=== PATIENT | female | born 1960 | race African-American/Black ===

== ENCOUNTER 2024-10-22 00:54 | Day surgery (SDC) | payer OTHER, SELFPAY ==
--- NOTE | 2024-08-14 17:45 | PC.NURSE ---
Report to the Outpatient Waiting Room, entrance under the green pavilion located off [facility], at time ___1200____ on date __[id number] . Planned Procedure Time: ____1400____.? Time changes happen often and if your time is changed the preop area will call you the afternoon before. - You and your visitor will be asked to self-screen and do not enter if you have any COVID symptoms. Please call surgeon if you need to reschedule. - A mask is optional within the hospital at this time. Patients may have clear liquids (water, carbonated beverages, clear teas, apple juice) until 3 hours prior to surgery with a maximum of 20 ounces. Stop at 1100am. - No food from midnight until time of surgery and no smoking - Take only the following medications with a SIP of water on the morning of surgery: __Flexiril (prn), Albuterol (prn)-plus bring your inhaler the morning of surgery, Nortriptyline (prn) Effexor. DO NOT STOP ANY OF YOUR OTHER PRESCRIPTION MEDICATIONS PRIOR TO SURGERY EXCEPT THE FOLLOWING Medications to discontinue per physician Hold your vitamin D and your urocap. Take your last dose on 08-23. Ask your surgeon about naproxen (patient states she will not take until day of surgery), Do not take your clonodine (prn) the morning of surgery. Do not take your hydralazine the morning of surgery. Please no make-up, nail nigerien, hairspray, perfume, deodorant, or body powder the day of surgery.? No jewelry (including any body piercings) or valuables the day of surgery, leave them at home.? Please take a shower or bath the night before, or the morning of, surgery with an antibacterial soap.? Wear comfortable, loose fitting clothing. - Jewelry must be removed prior to entering the operating room.? Rings and piercings that are not removed may be cut off. - The hospital will not accept responsibility for valuables.? - Please leave all valuables, including medications, at home the day of surgery. If you are going home after surgery, a licensed escort car driver must drive you home.? - NO public transportation without another adult if you receive anesthesia. - We recommend that an adult stay with you for 24 hours following discharge. - We also recommend that you do not drive, make important decision, drink alcoholic beverages, or take any drugs that were not prescribed by your health care provider for at least 24 hours after your discharge time. Follow any additional instructions given to you from your surgeon. Telephone instructions given to patient/Joselyn and asked if any additional questions and then verbalized understanding. Patient advised to call surgeon office or pre surgery nurse liaison [phone] if any additional questions.
[2024-08-14 17:54] VITALS: BMI 22.9
--- NOTE | 2024-08-24 10:58 | PM.IMHP ---
H&P: HPI History of Present Illness Date/Time: 08/24/24 10:58 Chief Complaint: Urge incontinence Narrative: History of urge incontinence. Underwent a trial of sacral neuromodulation with 85% symptom improvement. She would like permanent device implantation Review of Systems Review of Systems: All systems reviewed & are unremarkable except as noted in HPI and below PMFSH Past Medical History Medical History Anxiety Endometrial cells on cervical Pap smear inconsistent w/LMP Hypertension Surgical History Surgical History H/O tubal ligation H/O: myomectomy History of cholecystectomy Family History Family History Other Alcoholism Asthma Cerebrovascular accident Diabetes mellitus Heart disease Hypertension Social History Social History Years smoked: 25 Smoking status: Former smoker Tobacco type: cigarettes Second hand tobacco smoke exposure: No Alcohol intake: current Drinks per week: 0 Substance use: never Substance use type: does not use Last use: 2020 Lack of Transportation: No Lack of Food: Sometimes True Current Housing: I Have Housing Concerned About Future Housing: No Difficulty Paying Gas/Electric Bills: YES Difficulty Paying for Meds: YES Currently Unemployed: No Education: Master's Degree or Higher Difficulty w/ Childcare or Family Care: No Living arrangements: with family Spiritual care concerns: No Meds Home Medications and Allergies Home Medications Medication Instructions Recorded Confirmed Type albuterol 90 mcg/actuation aerosol See Rx Instructions .Route 06/28/22 08/14/24 History inhaler .COMPLEX PRN asthma cholecalciferol (vitamin D3) 1,250 1,250 mcg PO WEEKLY 06/28/22 08/14/24 History mcg (50,000 unit) capsule clonidine HCl 0.3 mg tablet 0.3 mg PO DAILY PRN hot flashes 06/28/22 08/14/24 History cyclobenzaprine 10 mg tablet 10 mg PO TID PRN Muscle Spasm 06/28/22 08/14/24 History hydralazine 50 mg tablet 50 mg PO BID PRN Hypertension 06/28/22 08/14/24 History naproxen 250 mg tablet 250 mg PO BID PRN Pain 06/28/22 08/14/24 History tramadol 50 mg tablet 50 mg PO Q6H PRN Pain 06/28/22 08/14/24 History urocap 1 cap BYMOUTH DAILY 06/28/22 08/14/24 History venlafaxine 75 mg tablet 75 mg PO DAILY 06/28/22 08/14/24 History nortriptyline 10 mg capsule 10 mg PO DAILY 01/10/23 08/14/24 History famotidine 20 mg tablet (Pepcid) 30 mg PO HS 08/14/24 08/14/24 History Allergies Allergy/AdvReac Type Severity Reaction Status Date / Time No Known Allergies Allergy Verified 08/14/24 17:55 Exam Narrative: No acute distress Normal breathing Alert orient x3 Assessment and Plan Assessment and plan (1) Urge incontinence: Code(s): N39.41 - Urge incontinence Status: Acute Assessment and Plan: Implantation of InterStim device for urge incontinence. Understands risks of bleeding, infection, incomplete efficacy, need for revision battery changes, she agrees to proceed
--- NOTE | 2024-10-12 12:37 | PC.NURSE ---
Report to the Outpatient Waiting Room, entrance under the green pavilion located off [facility], at time _0800am on date _10/22/24 . Planned Procedure Time: _1000am .? Time changes happen often and if your time is changed the preop area will call you the afternoon before. - You and your visitor will be asked to self-screen and do not enter if you have any COVID symptoms. Please call surgeon if you need to reschedule. - A mask is optional within the hospital at this time. Patients may have clear liquids (water, carbonated beverages, clear teas, apple juice) until 3 hours prior to surgery with a maximum of 20 ounces. - No food from midnight until time of surgery and no smoking. This includes no chewing gum, candy or mints. Take only the following medications with a SIP of water on the morning of surgery: _FLEXERIL( PRN); ALBUTEROL (PRN); NORTRIPTYLINE (prn) AND EFFEXOR DO NOT STOP ANY OF YOUR OTHER PRESCRIPTION MEDICATIONS PRIOR TO SURGERY EXCEPT THE FOLLOWING Medications to discontinue per physician VIT D and UROCAP Date to take last dose___10/19/24 Please no make-up, nail liberian, hairspray, perfume, deodorant, or body powder the day of surgery.? No jewelry (including any body piercings) or valuables the day of surgery, leave them at home.? Please take a shower or bath the night before, or the morning of, surgery with an antibacterial soap.? Wear comfortable, loose fitting clothing. - Jewelry must be removed prior to entering the operating room.? Rings and piercings that are not removed may be cut off. - The hospital will not accept responsibility for valuables.? - Please leave all valuables, including medications, at home the day of surgery. If you are going home after surgery, a licensed route relief driver must drive you home.? - NO public transportation without another adult if you receive anesthesia. - We recommend that an adult stay with you for 24 hours following discharge. - We also recommend that you do not drive, make important decision, drink alcoholic beverages, or take any drugs that were not prescribed by your health care provider for at least 24 hours after your discharge time. Follow any additional instructions given to you from your surgeon. Telephone instructions given to FRANCISCA and asked if any additional questions and then verbalized understanding. Patient advised to call surgeon office or pre surgery nurse liaison [phone] if any additional questions.
--- NOTE | 2024-10-12 12:42 | PC.NURSE ---
PT STATES NO CHANGE IN HEALTH AND MEDS SINCE INTERVIEW ON 08/14/24. UPDATED INSTRUCTIONS GIVEN FOR 10/22/24 SURGERY
--- NOTE | 2024-10-19 11:22 | PM.IMHP ---
H&P: HPI History of Present Illness Date/Time: 10/19/24 11:22 Chief Complaint: Urge incontinence Narrative: Underwent a trial of sacral neuromodulation with greater than 50% improvement in symptoms. Presents for InterStim implant Review of Systems Review of Systems: All systems reviewed & are unremarkable except as noted in HPI and below PMFSH Past Medical History Medical History Endometrial cells on cervical Pap smear inconsistent w/LMP Hypertension Anxiety Surgical History Surgical History H/O: myomectomy H/O tubal ligation History of cholecystectomy Family History Family History Other Alcoholism Asthma Cerebrovascular accident Diabetes mellitus Heart disease Hypertension Social History Social History Years smoked: 25 Smoking status: Former smoker Tobacco type: cigarettes Second hand tobacco smoke exposure: No Alcohol intake: current Drinks per week: 0 Substance use: never Substance use type: does not use Last use: 2020 Lack of Transportation: No Lack of Food: Sometimes True Current Housing: I Have Housing Concerned About Future Housing: No Difficulty Paying Gas/Electric Bills: YES Difficulty Paying for Meds: YES Currently Unemployed: No Education: Master's Degree or Higher Difficulty w/ Childcare or Family Care: No Living arrangements: with family Spiritual care concerns: No Meds Home Medications and Allergies Home Medications ?Medication ?Instructions ?Recorded ?Confirmed ?Type albuterol 90 mcg/actuation aerosol See Rx Instructions .Route 06/28/22 10/12/24 History inhaler .COMPLEX PRN asthma cholecalciferol (vitamin D3) 1,250 1,250 mcg PO WEEKLY 06/28/22 10/12/24 History mcg (50,000 unit) capsule clonidine HCl 0.3 mg tablet 0.3 mg PO DAILY PRN hot flashes 06/28/22 10/12/24 History cyclobenzaprine 10 mg tablet 10 mg PO TID PRN Muscle Spasm 06/28/22 10/12/24 History hydralazine 50 mg tablet 50 mg PO BID PRN Hypertension 06/28/22 10/12/24 History naproxen 250 mg tablet 250 mg PO BID PRN Pain 06/28/22 10/12/24 History tramadol 50 mg tablet 50 mg PO Q6H PRN Pain 06/28/22 10/12/24 History urocap 1 cap BYMOUTH DAILY 06/28/22 10/12/24 History venlafaxine 75 mg tablet 75 mg PO DAILY 06/28/22 10/12/24 History nortriptyline 10 mg capsule 10 mg PO DAILY 01/10/23 10/12/24 History famotidine 20 mg tablet (Pepcid) 30 mg PO HS 08/14/24 10/12/24 History Allergies Allergy/AdvReac Type Severity Reaction Status Date / Time No Known Allergies Allergy Verified 10/12/24 12:45 Exam Narrative: No acute distress Normal breathing Alert orient x3 Assessment and Plan Assessment and plan (1) Urge incontinence: Code(s): N39.41 - Urge incontinence Status: Acute Assessment and Plan: Placement of sacral neurostimulator implant,/InterStim implant
--- NOTE | ~2024-10-22 | XR_ITS ---
EXAMINATION: XR fluoroscopy no charge DATE: 10/22/2024 11:36 INDICATION: Neuro implant stimulator stage II TECHNIQUE: 2 fluoroscopic images of the sacrum were obtained during procedure performed by Dr. Heide martinez. Radiologist was not present for the imaging or procedure. The amount of fluoroscopy time used duri ng this procedure was 0.5 minutes. COMPARISON: None. FINDINGS: Sacral nerve root stimulator extends through one of the S3 neural foramina. Markers indicat ing the side are not included on the provided images it is unclear whether this is on the left or rig ht. IMPRESSION: 1. Sacral nerve root stimulator extending through one of the S3 neural foramina. Correlate with proce dure note for further detail including whether this is on the left or right. Reviewed, dictated and finalized at location [facility] IMPRESSION: 1. Sacral nerve root stimulator extending through one of the S3 neural foramina . Correlate with procedure note for further detail including whether this is on the left or right.
--- NOTE | 2024-10-22 07:16 | WPDHPUPDATE1 ---
History and Physical Update Update Date/Time: 10/22/24 07:16 History and Physical has been reviewed, including an updated exam of the patient. There are NO changes in the patient's condition. Risks, benefits, and alternatives have been discussed and questions answered. Patient agrees to proceed with procedure.
[2024-10-22 09:00] VITALS: BP 101/69; PULSE 89; RESP 14; TEMP 36.4; O2SAT 100
[2024-10-22] MEDS: LACTATED RINGERS 1,000 ML 30 ML IV CONT (09:00)
--- NOTE | 2024-10-22 10:34 | P.PNAN_ITS ---
Anes - Initial Pre Proc Eval Procedure: Operation Date: 10/22/24 10:00 Proposed Procedures p Neurostimulator Implant Stage Two - Rick Gregg MD Date/Time: 10/22/24 10:34 Surgeon: Rick Gregg MD Pre Op Diagnosis: urgamanda incont Patient Data Age: 64 Gender: F Height: 1.65 m Weight: 64.2 kg Last Vital Signs Temp 36.4 C L 10/22/24 09:00 Pulse 89 10/22/24 09:00 Resp 14 10/22/24 09:00 BP 101/69 10/22/24 09:00 Pulse Ox 100 10/22/24 09:00 O2 Del Method Room Air 10/22/24 09:00 Allergies Allergy/AdvReac Type Severity Reaction Status Date / Time No Known Allergies Allergy Verified 10/22/24 09:20 Home Medications ?Medication ?Instructions ?Recorded ?Confirmed ?Type albuterol 90 mcg/actuation aerosol See Rx Instructions .Route 06/28/22 10/12/24 History inhaler .COMPLEX PRN asthma cholecalciferol (vitamin D3) 1,250 1,250 mcg PO WEEKLY 06/28/22 10/12/24 History mcg (50,000 unit) capsule clonidine HCl 0.3 mg tablet 0.3 mg PO DAILY PRN hot flashes 06/28/22 10/12/24 History cyclobenzaprine 10 mg tablet 10 mg PO TID PRN Muscle Spasm 06/28/22 10/12/24 History hydralazine 50 mg tablet 50 mg PO BID PRN Hypertension 06/28/22 10/12/24 History naproxen 250 mg tablet 250 mg PO BID PRN Pain 06/28/22 10/12/24 History tramadol 50 mg tablet 50 mg PO Q6H PRN Pain 06/28/22 10/12/24 History urocap 1 cap BYMOUTH DAILY 06/28/22 10/12/24 History venlafaxine 75 mg tablet 75 mg PO DAILY 06/28/22 10/12/24 History nortriptyline 10 mg capsule 10 mg PO DAILY 01/10/23 10/12/24 History famotidine 20 mg tablet (Pepcid) 30 mg PO HS 08/14/24 10/12/24 History hydrocodone 5 mg-acetaminophen 325 1 tablet PO Q6H PRN pain #15 tabs 10/22/24 Rx mg tablet Patient hx anesthesia problems: none Family hx anesthesia problems: none Results Review: All pre-operative results and documents have been reviewed as part of the pre- operative evaluation. [facility] Past Medical History Medical History Endometrial cells on cervical Pap smear inconsistent w/LMP Hypertension Anxiety Surgical History Surgical History H/O: myomectomy H/O tubal ligation History of cholecystectomy Family History Family History Other Alcoholism Asthma Cerebrovascular accident Diabetes mellitus Heart disease Hypertension Social History Social History Years smoked: 25 Smoking status: Former smoker Tobacco type: cigarettes Second hand tobacco smoke exposure: No Alcohol intake: current Drinks per week: 0 Substance use: never Substance use type: does not use Last use: 2020 Lack of Transportation: No Lack of Food: Sometimes True Current Housing: I Have Housing Concerned About Future Housing: No Difficulty Paying Gas/Electric Bills: YES Difficulty Paying for Meds: YES Currently Unemployed: No Education: Master's Degree or Higher Difficulty w/ Childcare or Family Care: No Living arrangements: with family Spiritual care concerns: No Anes - Eval Final PreProcedure Day of Procedure 10/22/24 10:34 Patient weight: normal Heart: regular rate and rhythm Lungs: clear to auscultation and normal air movement Airway: Mallampati scale class II Neurological: alert and oriented Last oral intake: >/= 8 hours ASA classification: II Emergent: no Anesthetic plan: proceed Anesthesia type and monitoring: general GIVS and standard monitoring Results Review: All pre-operative results and documents have been reviewed as part of the pre- operative evaluation. Informed Consent: The patient's anesthetic plan and its attendant risks and benefits were discussed with the patient/family/POA. Questions were solicited and answers provided to the satisfaction of the patient/family/POA.
[2024-10-22] MEDS: ceFAZolin 2 GM/D5W 50 ML 2 GM/50 ML BAG IVPB (11:05)
[2024-10-22] MEDS: BUPIVACAINE/EPINEPHRINE 0.5% 30 ML VIAL 20 ML INFILTRATE (11:35)
[2024-10-22] MEDS: ceFAZolin SODIUM 1 GM VIAL (11:35)
[2024-10-22 11:43] VITALS: BP 117/66; PULSE 68; RESP 14; O2SAT 100
[2024-10-22 11:55] VITALS: O2SAT 100
[2024-10-22 12:10] VITALS: BP 136/70; PULSE 61; RESP 14; O2SAT 100
[2024-10-22 13:10] VITALS: BP 134/77; PULSE 63; RESP 14
--- OUTSIDE RECORDS SUMMARY | 2024-10-27 10:53 | XMS_ITS | Referral Summary ---
Author Organization [facility] Address [address] [place] [address] Care Team Providers Care Tallow Refiner Name Role Phone Brnadon Dumont MD Primary Care Provider [phone] Abisai Moss MD Unavailable Nunu Steen MD Unavailable [phone] Allergies Active Allergy Reactions Criticality Noted Date Comments Adhesive Rash Medium 05/26/2021 Medications cyclobenzaprine (FLEXERIL) 10 mg tablet Take 1 tablet (10 mg total) by mouth 3 (three) times a day as needed for muscle spasms 12 tablet 0 Active cloNIDine (CATAPRES) 0.3 mg tablet Take 1 tablet (0.3 mg total) by mouth daily Active diazePAM (VALIUM) 5 mg tablet Take 1 tablet (5 mg total) by mouth 3 (three) times a day as needed 7 Active ergocalciferol (VITAMIN D) 50,000 unit capsule Active venlafaxine (EFFEXOR) 75 mg tablet Take 1 tablet (75 mg total) by mouth nightly Active tapentadol ER (NUCYNTA ER) 100 mg 12 hr tablet Take 1 tablet (100 mg total) by mouth 2 times daily 7 Active loratadine 10 mg capsule Take by mouth Active gabapentin (NEURONTIN) 300 mg capsule Take 1 capsule (300 mg total) by mouth nightly 90 capsule 1 0 Active Additional Information Patient not taking.Reported on 07/16/2024 fluticasone propionate (FLONASE) 50 mcg/actuation nasal sprayIndications :Allergic rhinitis, unspecified seasonality, unspecified trigger Administer 2 sprays into each nostril daily 16 g 11 0 Active oxybutynin (DITROPAN) 5 mg tablet 1 Active hydrALAZINE (APRESOLINE) 25 mg tabletIndication s:hypertension Take 1 tablet (25 mg total) by mouth 3 (three) times a day 90 tablet 11 1 Active albuterol HFA (ProAir HFA) 90 mcg/actuation inhalerIndicatio ns:Cough Inhale 2 puffs every 4 (four) hours as needed for wheezing or shortness of breath 8.5 g 2 Active nicotine (NICODERM CQ) 14 mg 2 Active atorvastatin (LIPITOR) 10 mg tablet Take 1 tablet (10 mg total) by mouth daily 2 Active losartan (COZAAR) 25 mg tablet Take 1 tablet (25 mg total) by mouth daily 2 Active famotidine (PEPCID) 40 mg tabletIndication s:Laryngeal spasm Take 1 tablet (40 mg total) by mouth nightly 90 tablet 3 3 Active methylPREDNISolo ne (Medrol, [place],) 4 mg Dosepack follow package directions 1 packet 3 Active Additional Information Patient not taking.Reported on 01/05/2024 nortriptyline (PAMELOR) 25 mg capsule Take 1 capsule (25 mg total) by mouth nightly 90 capsule 3 Active colestipoL (COLESTID) 1 gram tablet Take 1 tablet (1 g total) by mouth 2 (two) times a day as needed (diarrhea) 180 tablet 4 Active umeclidinium-anita anteroL (Anoro Ellipta) 62.5-25 mcg/actuation blister with device Inhale 1 puff daily 90 each 3 4 01/19/20 Active Additional Information Patient not taking.Reported on 07/16/2024 Active Problems Problem Noted Date Diagnosed Date 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 Followed Flonase 2 sprays into each nostril while looking down over the sink, do not sniff in or blow nose after use for at least 30 minutes RUQ abdominal pain 11/19/2022 Overview (11/19/2022): Added automatically from request for surgery [id number] Essential hypertension 08/17/2021 Epigastric pain 05/26/2021 S/P ERCP 05/26/2021 Colon cancer screening 05/26/2021 Diarrhea 05/26/2021 Nausea 05/26/2021 Abnormality of rectum 05/12/2021 Cholecystitis 05/10/2021 Assessment & Plan (05/10/2021 4:16 PM CDT): Symptoms classic for cholecystitis especially with known colelithiasis and choledocholithiasis seen on CT. General surgery consulted, lap choly planned tomorrow. NPO at PR. IV pain control. Anxiety 05/10/2021 Elevated liver enzymes 05/10/2021 Overview (05/12/2021): Added automatically from request for surgery [id number] Choledocholithiasis with acute cholecystitis 02/2021 Overview (05/12/2021): Added automatically from request for surgery [id number] Assessment & Plan (05/21/2021 10:16 AM CDT): Continue to advance diet as tolerates. No submerging incisions for 2 weeks. No heavy lifting for another 2 weeks. Take stool softener as needed to avoid straining. Patient will call back with any further questions or concerns. Referred otalgia of left ear 09/30/2020 Assessment & Plan (09/30/2020 1:53 PM FIRER MARINE): Flonase 2 sprays into each nostril while looking down over the sink, do not sniff in or blow nose after use for at least 30 minutes Warm compresses and massage 15 minutes at a time and continue to work with physical therapy regarding muscle strain 64 ounces of caffeine free and soda free fluid daily Allergic rhinitis 09/30/2020 Assessment & Plan (02/23/2023 2:02 PM CDT): Pepcid 40 mg at bedtime Nasal saline spray (Simply saline, [place], [place], [place]) 2 second sprays or 2 squeezes into each nostril while looking down over the sink, do not need to sniff in. Followed Flonase 2 sprays into each nostril while looking down over the sink, do not sniff in or blow nose after use for at least 30 minutes Assessment & Plan (09/30/2020 1:53 PM FIRER MARINE): Flonase 2 sprays into each nostril while looking down over the sink, do not sniff in or blow nose after use for at least 30 minutes Warm compresses and massage 15 minutes at a time and continue to work with physical therapy regarding muscle strain 64 ounces of caffeine free and soda free fluid daily Cigarette nicotine dependence, uncomplicated Tobacco use 02/28/2017 Decrease in appetite 01/17/2017 Degeneration of intervertebral disc of lumbar re gion 01/17/2017 Irritable mood 01/17/2017 Lumbar radiculopathy 01/17/2017 Menopause present 01/17/2017 Uterine leiomyoma Social History Tobacco Use Types Packs/Day Years Used Date Smoking Tobacco: Former Cigarettes 0.7 40 1 997 - 05/07/2023 Smokeless Tobacco: Never Tobacco Cessation:Counseling Given: Not Answered Comments:quit 2019 ARestarted 2 mo ago after daughter . Currently on 14mg patches Alcohol Use Standard Drinks/Week Comments Not Currently 0 (1 standard drink = 0.6 oz pur e alcohol) Social Connection and Isolat ion Panel [NHANES] Answer Date Recorded In a typical week, how many times do you talk on the phone with family, friends, or neighbors? More than three times a week 07/16/2024 How often do you get togethe r with friends or relatives? Once a week 07/16/2024 How often do you attend chur ch or holiness services? More than 4 times per year 07/16/2024 Do you belong to any clubs o r organizations such as jewish groups, unions, fraternal or athletic groups, or school groups? Yes 07/16/2024 How often do you attend meet ings of the clubs or organizations you belong to? More than 4 times per year 07/16/2024 Are you , , di vorced, , never , or living with a partner? 07/16/2024 AUDIT-C Answer Date Recorded Q1: How often do you have a drink containing alc ohol? Never 10/14/2023 Average Number of Drinks Not on file 023 Frequency of Binge Drinking Not on file 06/2023 Overall Financial Resource Strain (CARDIA) Answe r Date Recorded How hard is it for you to pa y for the very basics like food, housing, medical care, and heating? Not very hard 07/16/2024 PHQ-2 Answer Date Recorded Patient Health Questionnaire-2 Score 2 07/16/2024 [facility] Occupat ional Health - Occupational Stress Questionnaire Answer Date Recorded Do you feel stress - tense, restless, nervous, or anxious, or unable to sleep at night because your mind is troubled all the time - these days? To some extent 07/16/2024 Exercise Vital Sign Answer Date Recorde d On average, how many days pe r week do you engage in moderate to strenuous exercise (like a brisk walk)? 2 days 07/16/2024 On average, how many minutes do you engage in exercise at this level? 10 min 07/16/2024 Hunger Vital Sign Answer Date Recorded Within the past 12 months, y ou worried that your food would run out before you got the money to buy more. Never true Within the past 12 months, t he food you bought just didn't last and you didn't have money to get more. Sometimes true 07/2024 PRAPARE - Transportation Answer Date Re corded In the past 12 months, has l ack of transportation kept you from medical appointments or from getting medications? No 07/2024 In the past 12 months, has l ack of transportation kept you from meetings, work, or from getting things needed for daily living? No 07/16/2024 Housing Stability Vital Sign Answer Moose e Recorded In the last 12 months, was t here a time when you were not able to pay the mortgage or rent on time? Patient refused 07/16/20 24 Number of Times Moved in the Last Year Not on fi le 07/16/2024 Homeless in the Last Year Not on file 2023 Personal Safety Answer Date Recorded Getting School Help Needed Denies 10/17 Comments No Sex and Gender Information Value Date Recorded Sex Assigned at Not on file Legal Sex Female 12:50 AM FIRER MARINE Gender Identity Not on file Sexual Orientation Not on file Last Filed Vital Signs Vital Sign Reading Time Taken Comments Blood Pressure 131/85 07/16/2024 8:12 AM CDT Pulse 77 07/16/2024 8:12 AM CDT Temperature 36.2 ??C (97.1 ??F) 07/16/2024 8:12 AM CD T Respiratory Rate 16 11/24/2022 2:50 PM FIRER MARINE Oxygen Saturation 100% 07/16/2024 8:12 AM CDT Inhaled Oxygen Concentration - - Weight 65.2 kg (143 lb 12.8 oz) 07/16/2024 8:12 AM CDT Height 165.1 cm (5' 5 ) 07/16/2024 8:12 AM CDT Body Mass Index 23.93 07/16/2024 8:12 AM CDT Plan of Treatment Not on file Procedures Procedure Name Priority Date/Time Associated Diagnosis Comments HEPATITIS C ANTIBODY Routine 07/16/2024 9:08 AM CDT Ribonucleoprotein antibody positive SCREENING MAMMOGRAM BILATERAL W MICAH Schedule Routine, Read Routine (OP Routine) 09/13/2023 2:47 PM FIRER MARINE Encounter for screening mammogram for malignant neoplasm of breast CT LUNG CANCER SCREENING Schedule Routine, Read Routine (OP Routine) 07/12/2023 3:47 PM CDT Nicotine dependence, cigarettes, uncomplicated COLONOSCOPY 12/15/2021 12:38 PM FIRER MARINE from Last 3 Months or Most Recently Relevant to Health Maintenance Results * Hepatitis C antibody Blood (07/16/2024 9:08 AM CDT) Hep C Ab Nonreactive Nonreactive Comment: Interpretive Data Nonreactive: Antibodies to HCV not detected. Does NOT exclude the possibility of recent exposure to HCV. Equivocal: Equivocal for HCV antibodies. Supplemental molecular testing will be automatically performed to determine infection status in accordance with current CDC screening recommendations. ?? Reactive: Positive for HCV antibodies. ??This may represent current or past HCV infection. Supplemental molecular testing will be automatically performed to determine ??current infection status in accordance with current CDC screening recommendations. Interpretive data was last revised on 2020. Blood 07/16/2024 9:08 AM CDT 07/16/2024 3:50 PM CDT us Wallace Awad RN LAB MICROBIOLOGY - GENERAL ORD ERABLES Final Result Performing Organization Address City/State/[facility] [place] Phone Number [place] [phone] [address] Department [place] [address] * Screening Mammogram Bilateral W [place] (09/13/2023 2:47 PM FIRER MARINE) Anatomical Region Laterality Modality Breast Bilateral Mammography 09/13/2023 4:48 PM FIRER MARINE Impressions 09/13/2023 4:48 PM FIRER MARINE There is no mammographic evidence of malignancy. A 1 year screening mammogram is recommended. BI-RADS: 1 - Negative. The patient has been or will be contacted. The patient will be entered into a reminder system with a target due date of 1 year for her next mammogram. Electronically signed by: Melina Pineda M.D. Narrative 09/13/2023 4:48 PM FIRER MARINE EXAMINATION: SCREENING MAMMOGRAM BILATERAL W MICAH ORDERING HEALTHCARE PROVIDER: GRETEL ALVAREZ HISTORY: Routine screening mammography. COMPARISON: ??03/19/2010 TECHNIQUE: CC and MLO views of the bilateral breasts were obtained with digital technique using breast tomosynthesis with C view. Computer aided detection was utilized. FINDINGS: DENSITY: There are scattered fibroglandular elements in the bilateral breasts. BREASTS: There are no suspicious masses, suspicious calcifications, or other suspicious findings in either breast. There has been no suspicious interval change. us Gretel Alvarez MD IMG MAMMO PROCEDURES Final Re sult * CT Lung Cancer Screening (07/12/2023 3:47 PM CDT) Anatomical Region Laterality Modality Chest N/A Computed Tomogra phy 07/14/2023 8:28 AM CDT Narrative 07/14/2023 8:33 AM CDT EXAM DESCRIPTION: ?? CT LUNG CANCER SCREENING REASON FOR STUDY: Screening CT of the chest in a ?? former ??smoker with a ??30 ?? pack year smoking history. Additional history: Smoking cessation this year.. TECHNIQUE: Low dose CT scan of the chest was performed without intravenous contrast using helical scanning technique. The exam extends from the lung apices through the lung bases. Automatic exposure control was used as a dose optimization technique. NOTE: This study was performed for the specific purposes of lung cancer screening and is not an alternative to diagnostic chest CT. RADIATION DOSE: CT dose index volume (CTDIvol) = ?? 0.91 ??mGy COMPARISON: ?? Chest CT dated 07/08/2022 FINDINGS: SMOKING RELATED LUNG DISEASE: ?? There is mild centrilobular emphysema with upper lung predominance. ?? Subtle tiny centrilobular ground-glass nodules in the upper lungs. ??These are indeterminate, but suggestive of mild respiratory bronchiolitis in a smoker. LUNG NODULES: ?? There are a few tiny lung nodules bilaterally. ??The largest is a solid nodule in the left upper lobe apicoposterior segment, image 144, measuring 3-4 mm. ??This is unchanged. ??No new suspicious lung nodules are seen. CORONARY ARTERY CALCIFICATION: ??Mild. OTHER: ?? Minimal areas of biapical pleuroparenchymal scarring. ??There is also mild scarring in the lung bases. ??There is no focal consolidation. ??The central airways are patent. ??Mild bronchiectasis and bronchiolectasis. ??Mild bronchial wall thickening and mild patchy mucous plugging. ??These findings are similar to the previous study. ??There is no pleural effusion or pneumothorax. ?? No suspicious lymphadenopathy seen in the chest. ??No mediastinal masses. ??The heart size is normal. ??There is no pericardial thickening or effusion. ??The thoracic aorta is mildly atherosclerotic, but normal in caliber. ??The central pulmonary arteries appear mildly dilated. ??Limited low-dose images through the upper abdomen are unremarkable. ??Examination of bone windows demonstrates no suspicious lytic or blastic lesions. IMPRESSION: A few tiny lung nodules are again seen bilaterally. The largest is in the left upper lobe apicoposterior segment, and measures 3-4 mm. No new suspicious lung nodules are seen. Mild centrilobular emphysema with upper lung predominance. Subtle tiny centrilobular ground-glass nodules in the upper lungs. These are indeterminate, but suggestive of mild respiratory bronchiolitis in a smoker. Other findings as described above. Lung-RADS category ??2: Benign appearance or behavior. Recommendation: ??Low dose Screening CT of chest in 12 months. THIS IS AN ELECTRONICALLY VERIFIED FINAL REPORT 07/14/2023 8:33 AM - Electronically signed by ??Martin Plasencia M.D. RL: CLAY D: ??07/14/2023 8:33 AM T: ??07/14/2023 8:33 AM Report ID: [id number] Reading Location: ??[id number] Procedure Note Martin Murray MD - 07/14/2023 EXAM DESCRIPTION: CT LUNG CANCER SCREENING REASON FOR STUDY: Screening CT of the chest in a former smoker with a30 pack year smoking history. Additional history: Smoking cessation thisyear.. TECHNIQUE: Low dose CT scan of the chest was performed without intravenous contrast using helical scanning technique. The exam extends from the lung apices through the lung bases. Automatic exposure control was used as adose optimization technique. NOTE: This study was performed for the specific purposes of lung cancer screening and is not an alternative to diagnostic chest CT. RADIATION DOSE: CT dose index volume (CTDIvol) = 0.91 mGy COMPARISON: Chest CT dated 07/08/2022 FINDINGS: SMOKING RELATED LUNG DISEASE: There is mild centrilobular emphysema with upper lung predominance. Subtle tiny centrilobular ground-glass nodulesin the upper lungs. These are indeterminate, but suggestive of mildrespiratory bronchiolitis in a smoker. LUNG NODULES: There are a few tiny lung nodules bilaterally. Thelargest is a solid nodule in the left upper lobe apicoposterior segment, image 144, measuring 3-4 mm. This is unchanged. No new suspicious lung nodules are seen. CORONARY ARTERY CALCIFICATION: Mild. OTHER: Minimal areas of biapical pleuroparenchymal scarring. There isalso mild scarring in the lung bases. There is no focal consolidation. The central airways are patent. Mild bronchiectasis and bronchiolectasis.Mild bronchial wall thickening and mild patchy mucous plugging. These findingsare similar to the previous study. There is no pleural effusion orpneumothorax. No suspicious lymphadenopathy seen in the chest. No mediastinal masses.The heart size is normal. There is no pericardial thickening or effusion.The thoracic aorta is mildly atherosclerotic, but normal in caliber. Thecentral pulmonary arteries appear mildly dilated. Limited low-dose images throughthe upper abdomen are unremarkable. Examination of bone windows demonstratesno suspicious lytic or blastic lesions. IMPRESSION: A few tiny lung nodules are again seen bilaterally. The largest is in the left upper lobe apicoposterior segment, and measures 3-4 mm. No newsuspicious lung nodules are seen. Mild centrilobular emphysema with upper lung predominance. Subtle tiny centrilobular ground-glass nodules in the upper lungs. Theseare indeterminate, but suggestive of mild respiratory bronchiolitis in asmoker. Other findings as described above. Lung-RADS category 2: Benign appearance or behavior. Recommendation: Low dose Screening CT of chest in 12 months. THIS IS AN ELECTRONICALLY VERIFIED FINAL REPORT 07/14/2023 8:33 AM - Electronically signed by Martin Plasencia M.D. RL: CLAY Report ID: [id number] Reading Location: [id number] Mike Sism MD [facility] [place] Final Result * COLONOSCOPY (12/15/2021 12:38 PM FIRER MARINE) Anatomical Region Laterality Modality Other Narrative Procedure Note Nunu Steen MD - 12/15/2021 12:38 PM CST [facility] Patient Name: Joselyn Amado Procedure Date: 12/15/2021 12:38 PM Date of : 1960 Admit Type: Outpatient Age: 61 Gender: Female Attending MD: Nunu Steen M.D. Room: [facility] ENDOSCOPY ROOM 1 Note Status: Finalized Patient Profile: This is a 61 year old female. No family h/o colon cancer. Screening. Procedure: Colonoscopy Indications: Screening for colorectal malignant neoplasm, Thisis the patient's first colonoscopy Referring MD: Brandon Dumont M.D. Providers: Nunu Steen M.D. Impression: - Two 10 to 14 mm polyps in the transverse colonand in the cecum, removed with a cold snare. Resectedand retrieved. - Two diminutive polyps in the rectum, removed witha jumbo cold forceps. Resected and retrieved. - Internal hemorrhoids. Recommendation: - Await pathology results. - Repeat colonoscopy in 3 years for screeningpurposes. - Continue present medications. Medicines: Monitored Anesthesia Care Complications: No immediate complications. Estimated Blood Loss: Estimated blood loss: none. Procedure: Pre-Anesthesia Assessment: - Prior to the procedure, a History and Physicalwas performed, and patient medications and allergieswere reviewed. The patient's tolerance of previous anesthesia was also reviewed. The risks andbenefits of the procedure and the sedation options and risks were discussed with the patient. All questions were answered, and informed consent was obtained. Prior Anticoagulants: The patient has taken no previous anticoagulant or antiplatelet agents except for aspirin. ASA Grade Assessment: III - A patient with severe systemic disease. After reviewing the risksand benefits, the patient was deemed in satisfactory condition to undergo the procedure. The benefits, risks and alternatives of theprocedure and sedation were discussed and informed consentwas obtained. All questions were answered. Please referto the signed informed consent document in the medical record. The bowel preparation used was Miralax and bisacodyl tablets via split dose instruction. The scope was passed under direct vision. The Pediatric Colonoscope [id number]-H190L [id number] was introducedthrough the anus and advanced to the the cecum, identifiedby appendiceal orifice and ileocecal valve. Thequality of the bowel preparation was good. Bowel prep was administered using a split dose. Findings: The perianal and digital rectal examinations were normal. The appendiceal orifice appeared normal. Two sessile polyps were found in the transverse colon and cecum. The polyps were 10 to 14 mm in size. These polyps were removed with acold snare. CLip applied on the polypectomy site in the cecum. Resectionand retrieval were complete. The ascending colon appeared normal. Two sessile polyps were found in the rectum. The polyps werediminutive in size. These polyps were removed with a jumbo cold forceps.Resection and retrieval were complete. Internal hemorrhoids were found during retroflexion. The hemorrhoids were small. None specific erythema noted in the distal part of the rectum. Electronically signed by Nunu Steen M.D. Nunu Steen M.D. 12/15/2021 1:42:41 PM Number of Addenda: 0 Note Initiated On: 12/15/2021 12:38 PM Procedure Code(s): --- Professional --- 72806, Colonoscopy, flexible; with removal of tumor(s), polyp(s), or other lesion(s) by snare technique 06970, 59, Colonoscopy, flexible; with biopsy, single or multiple Diagnosis Code(s): --- Professional --- Z12.11, Encounter for screening for malignant neoplasm of colon K64.8, Other hemorrhoids K63.5, Polyp of colon K62.1, Rectal polyp CPT copyright 2019 [employer]. All rights reserved. The codes documented in this report are preliminary and upon tank processor reviewmay be revised to meet current compliance requirements. Recognized by the [employer] for promoting quality in endoscopy Nunu Steen MD ENDOSCOPY PROCEDURES Final Result from Last 3 Months or Most Recently Relevant to Health Maintenance Insurance [facility] CHOICE PLUS [employer] OPEN ACCESS [facility] CHOICE PLUS [facility] CHOICE PLUS [employer] OPEN ACCESS Advance Directives For more information, please contact: [phone] * Full Code (Latest Code Status on File) Date Activated Date Inactivated Comments 11/24/2022 12:30 PM 11/24/2022 7:23 PM * Full Code Date Activated Date Inactivated Comments 11/24/2022 12:30 PM 11/24/2022 12:30 PM * Full Code Date Activated Date Inactivated Comments 12/15/2021 12:15 PM 12/15/2021 6:18 PM * Full Code Date Activated Date Inactivated Comments 12/15/2021 12:15 PM 12/15/2021 12:15 PM * Full Code Date Activated Date Inactivated Comments 05/12/2021 2:45 PM 05/14/2021 8:40 PM Care Teams Tallow Refiner Relationship Specialty Start Date End Date Brandon Dumont MD PCP - General 03/26/21 Abisai Msos MD Consulting Physician General Surgery 05/14/21 Nunu Steen MD Consulting Physician Gastroenterology 05/14/21
--- OUTSIDE RECORDS SUMMARY | 2024-10-27 10:53 | XMS_ITS | Clinical Summary ---
Author Organization [facility] Address [address] [place] [address] Care Team Providers Care Rouge Sifter Name Role Phone Brandon Dumont MD Primary Care Provider [phone] Abisai Moss MD Unavailable Nunu Steen MD Unavailable [phone] Allergies Active Allergy Reactions Criticality Noted Date [...] Nasal saline spray (Simply saline, Little Remedies, Robertson, Bartley) 2 second sprays or 2 squeezes into each nostril while looking down over the sink, do not need to sniff in. Followed Flonase 2 sprays into each nostril while looking down over the sink, do not sniff in or blow nose after use for at least 30 minutes RUQ abdominal pain 11/19/2022 Overview (11/19/2022): Added automatically from request for surgery [id number] Essential hypertension 08/17/2021 Epigastric pain 05/26/2021 S/P ERCP 05/26/2021 Colon cancer screening 05/26/2021 Diarrhea 05/26/2021 Nausea 05/26/2021 Abnormality of rectum 05/12/2021 Cholecystitis 05/10/2021 Assessment & Plan (05/10/2021 4:16 PM CDT): Symptoms classic for cholecystitis especially with known colelithiasis and choledocholithiasis seen on CT. General surgery consulted, lap choly planned tomorrow. NPO at MD. IV pain control. Anxiety 05/10/2021 Elevated liver enzymes 05/10/2021 Overview (05/12/2021): Added automatically from request for surgery [id number] Choledocholithiasis with acute cholecystitis 02/2021 Overview (05/12/2021): Added automatically from request for surgery [id number] Assessment & Plan (05/21/2021 10:16 AM CDT): Continue to advance diet as tolerates. No submerging incisions for 2 weeks. No heavy lifting for another 2 weeks. Take stool softener as needed to avoid straining. Patient will call back with any further questions or concerns. Referred otalgia of left ear 09/30/2020 Assessment & Plan (09/30/2020 1:53 PM COOKY PACKER): Flonase 2 sprays into each nostril while [...] Nasal saline spray (Simply saline, Little Remedies, Robertson, Bartley) 2 second sprays or 2 squeezes into each nostril while looking down over the sink, do not need to sniff in. Followed Flonase 2 sprays into each nostril while looking down over the sink, do not sniff in or blow nose after use for at least 30 minutes Assessment & Plan (09/30/2020 1:53 PM COOKY PACKER): Flonase 2 sprays into each nostril while [...] radiculopathy 01/17/2017 Menopause present 01/17/2017 Uterine leiomyoma Surgical History Surgery Date Site/Laterality Comments BACK SURGERY 11/07/2016 - 11/06/2017 COLONOSCOPY 12/15/2021 CHOLECYSTECTOMY Medical History Medical History Date Comments Chronic pain 2019 Bladder spasms Gall stones Hot flashes Hypertension Hyperlipidemia Covid 05/2022 Family History Medical History Relation Name Comments Heart attack Father Family history of myocardial infarction - (Added by TW Conv) Heart attack Mother Family history of myocardial infarction - (Added by TW Conv) Relation Name Status Comments Father Mother Social History Tobacco Use Types Packs/Day Years [...] 07/16/2024 How often do you attend chur or zoroastrianism services? More than 4 times per year 07/16/2024 Do you belong to any clubs o r organizations such as jain groups, unions, fraternal or athletic groups, or [...] Recorded Patient Health Questionnaire-2 Score 2 07/16/2024 [facility] of Occupat ional Health - Occupational Stress [...] on file Legal Sex Female 12:50 AM COOKY PACKER Gender Identity Not on file Sexual Orientation Not on file Obstetrics History Para Term AB IAB SAB Ectopic Multiple Livin g Live Births 4 4 4 Date Outcome GA Total Labor Labor/2nd/3rd Weight Sex Type Anes PTL Roshni A1 A5 Name Clin Term Term Term Term Last Filed Vital Signs Vital Sign Reading Time Taken Comments Blood Pressure 131/85 07/16/2024 8:12 AM CDT Pulse 77 07/16/2024 8:12 AM CDT Temperature 36.2 ??C (97.1 ??F) 07/16/2024 8:12 AM CD T Respiratory Rate 16 11/24/2022 2:50 PM COOKY PACKER Oxygen Saturation 100% 07/16/2024 8:12 AM CDT Inhaled Oxygen Concentration - - Weight 65.2 kg (143 lb 12.8 oz) 07/16/2024 8:12 AM CDT Height 165.1 cm (5' 5 ) 07/16/2024 8:12 AM CDT Body Mass Index 23.93 07/16/2024 8:12 AM CDT Plan of Treatment Health Maintenance Due Date Last Done Comments Cervical Cancer Screening 1960 Pneumococcal vaccine <65 (1 of 2 - PCV) 1968 Hepatitis B Screening 1980 Regular Well Visit/Exam 18-64 1980 Zoster Vaccine (1 of 2) 2012 Covid-19 Vaccine (3 - season) 07/08/202404/2021, 06/13/2021 Influenza Vaccine (#1) 2024 Lung Cancer Screening 07/12/2024 07/12/2023 Breast Cancer Screening-Mammogram 09/13/2024 023, 09/13/2023 Depression Screening 07/16/2025 07/16/2024 Colon Cancer Screening-Colonoscopy 12/15/20312021 DTaP/Tdap/Td Vaccine (2 - Td or Tdap) 10/03/2032 Colon Cancer Screening-CT Colonography Discontinued Colon Cancer Screening-DNA Stool Discontinued 12/15/19 Colon Cancer Screening-FIT Discontinued 12/15/2021 Colon Cancer Screening-Sigmoidoscopy Discontinued 06/2022 Hepatitis C Screening Completed 07/16/2024 Procedures Procedure Name Priority Date/Time Associated Diagnosis Comments HEPATITIS C ANTIBODY Routine 07/16/2024 9:08 AM CDT Ribonucleoprotein antibody positive SCREENING MAMMOGRAM BILATERAL W MICAH Schedule Routine, Read Routine (OP Routine) 09/13/2023 2:47 PM COOKY PACKER Encounter for screening mammogram for malignant neoplasm of breast CT LUNG CANCER SCREENING Schedule Routine, Read Routine (OP Routine) 07/12/2023 3:47 PM CDT Nicotine dependence, cigarettes, uncomplicated COLONOSCOPY 12/15/2021 12:38 PM COOKY PACKER from Last 3 Months or Most Recently [...] 07/16/2024 3:50 PM CDT us Wallace Awad MOLD SWABBER MICROBIOLOGY - GENERAL ORD ERABLES Final Result [place] [address] Jennifer Esquivel Department [place] [address] * Screening Mammogram Bilateral W Micah (09/13/2023 2:47 PM COOKY PACKER) Anatomical Region Laterality Modality Breast Bilateral Mammography 09/13/2023 4:48 PM COOKY PACKER Impressions 09/13/2023 4:48 PM COOKY PACKER There is no mammographic evidence of malignancy. A 1 year screening mammogram is recommended. BI-RADS: 1 - Negative. The patient has been or will be contacted. The patient will be entered into a reminder system with a target due date of 1 year for her next mammogram. Electronically signed by: Melina Pineda M.D. Narrative 09/13/2023 4:48 PM COOKY PACKER EXAMINATION: SCREENING MAMMOGRAM BILATERAL W MICAH ORDERING [...] Electronically signed by ??Martin Plasencia M.D. RL: RL D: ??07/14/2023 8:33 AM T: ??07/14/2023 8:33 AM Report ID: [id number] Reading Location: ??[id number] Procedure Note Martin Murray MD - 07/14/2023 [...] Electronically signed by Martin Plasencia M.D. RL: CLYA Report ID: [id number] Reading Location: [id number] Mike Sims MD [facility] [place] PROCEDURES Final Result * COLONOSCOPY (12/15/2021 12:38 PM COOKY PACKER) Anatomical Region Laterality Modality Other Narrative Procedure Note Nunu Steen MD - 12/15/2021 12:38 PM CST [facility] Patient Name: Joselyn Amado Procedure Date: 12/15/2021 12:38 PM Date of : 1960 Admit Type: Outpatient Age: 61 Gender: Female Attending MD: Nunu Steen M.D. [facility] Note Status: Finalized Patient [...] under direct vision. The Pediatric Colonoscope [id number]-H190L [id number] was introducedthrough the anus and advanced to [...] 12:38 PM Procedure Code(s): --- Professional --- 20347, Colonoscopy, flexible; with removal of tumor(s), polyp(s), or other lesion(s) by snare technique 12630, 59, Colonoscopy, flexible; with biopsy, single or multiple Diagnosis Code(s): --- Professional --- Z12.11, Encounter for screening for malignant neoplasm of colon K64.8, Other hemorrhoids K63.5, Polyp of colon K62.1, Rectal polyp CPT copyright 2019 [employer]. All rights reserved. The codes documented in this report are preliminary and upon demand generation manager reviewmay be revised to meet current compliance requirements. Recognized by the [employer] for promoting quality in endoscopy Nunu Steen MD ENDOSCOPY PROCEDURES Final Result from Last 3 Months or Most Recently Relevant to Health Maintenance Insurance [facility] [facility] Address: [place] [address] [employer] [facility] Address: [place] [address] [facility] [employer] [facility] [facility]PPO Address: [address] [address] [place] [address] [employer] OPEN ACCESS Advance Directives For more information, please contact: [phone] * Full Code (Latest Code Status on [...] 2:45 PM 05/14/2021 8:40 PM Care Teams Rouge Sifter Relationship Specialty Start Date End Date Brandon Dumont MD PCP - General 03/26/21 Abisai Moss MD Consulting Physician General Surgery 05/14/21 Nunu Steen MD Consulting Physician Gastroenterology 05/14/21
--- OUTSIDE RECORDS SUMMARY | 2024-10-27 10:54 | XMS_ITS | Encounter Summary ---
Author Organization [facility] Address [address] [place] [address] Care Team Providers Care Choke Setter Name Role Phone Brandon Dumont MD Primary Care Provider [phone] Abisai Moss MD Unavailable Nunu Steen MD Unavailable [phone] Encounter Details Date Type Department Care Team (Latest Contact Info) Description 07/16/2024 9:08 AM CDT - 07/16/2024 11:59 PM CDT Hospital Encounter [facility] [address] [place], [place] [id number] Ribonucleoprotein antibody positive Discharge Disposition: Discharge to home or self care Social History Tobacco Use Types Packs/Day Years Used Date Smoking Tobacco: Former Cigarettes 0.7 40 1 997 - 05/07/2023 Smokeless Tobacco: Never Comments:quit 2020 ARestarted 2 mo ago after daughter . [...] week 07/16/2024 How often do you attend [facility] or [facility] services? 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 Gender Identity Not on file Sexual Orientation Not on file documented as of this encounter Medications at Time of Discharge atorvastatin (LIPITOR) 10 mg tablet Take 1 tablet (10 mg total) by mouth daily 10/15/2022 cloNIDine (CATAPRES) 0.3 mg tablet Take 1 tablet (0.3 mg total) by mouth daily cyclobenzaprine (FLEXERIL) 10 mg tablet Take 1 tablet (10 mg total) by mouth 3 (three) times a day as needed for muscle spasms 12 tablet 08/07/2020 diazePAM (VALIUM) 5 mg tablet Take 1 tablet (5 mg total) by mouth 3 (three) times a day as needed 02/28/2017 ergocalciferol (VITAMIN D) 50,000 unit capsule gabapentin (NEURONTIN) 300 mg capsule Take 1 capsule (300 mg total) by mouth nightly 90 capsule 1 09/03/2020 loratadine 10 mg capsule Take by mouth losartan (COZAAR) 25 mg tablet Take 1 tablet (25 mg total) by mouth daily 10/08/2022 methylPREDNISolo ne (Medrol, Talon,) 4 mg Dosepack follow package directions 1 packet 10/04/2023 nicotine (NICODERM CQ) 14 mg 10/08/2022 oxybutynin (DITROPAN) 5 mg tablet 04/16/2021 tapentadol ER (NUCYNTA ER) 100 mg 12 hr tablet Take 1 tablet (100 mg total) by mouth 2 times daily 01/26/2017 umeclidinium-anita anteroL (Anoro Ellipta) 62.5-25 mcg/actuation blister with device Inhale 1 puff daily 90 each 3 01/19/2024 venlafaxine (EFFEXOR) 75 mg tablet Take 1 tablet (75 mg total) by mouth nightly documented as of this encounter Discharge Disposition Disposition Code Departure Means Destination Discharge to home or self care documented in this encounter Plan of Treatment Not on file documented as of this encounter Procedures Procedure Name Priority Date/Time Associated Diagnosis Comments ANTI-DOUBLE STRANDED DNA ANTIBODIES Routine 07/16/2024 9:08 AM CDT Ribonucleoprotein antibody positive EGFR Routine 07/16/2024 9:08 AM CDT Ribonucleoprotein antibody positive C4 COMPLEMENT Routine 07/16/2024 9:08 AM CDT Ribonucleoprotein antibody positive HIV 1/2 ANTIBODY PLUS P24 ANTIGEN Routine 07/16/2024 9:08 AM CDT Ribonucleoprotein antibody positive HEPATITIS C ANTIBODY Routine 07/16/2024 9:08 AM CDT Ribonucleoprotein antibody positive CYCLIC CITRUL PEPTIDE ANTIBODY, IGG Routine 07/16/2024 9:08 AM CDT Ribonucleoprotein antibody positive PROTEIN / CREATININE RATIO, URINE, RANDOM Routine 07/16/2024 9:08 AM CDT Ribonucleoprotein antibody positive HEPATITIS B CORE ANTIBODY, TOTAL Routine 07/16/2024 9:08 AM CDT Ribonucleoprotein antibody positive HEPATITIS B SURFACE ANTIGEN Routine 07/16/2024 9:08 AM CDT Ribonucleoprotein antibody positive CBC WITHOUT DIFFERENTIAL Routine 07/16/2024 9:08 AM CDT Ribonucleoprotein antibody positive RHEUMATOID FACTOR Routine 07/16/2024 9:0 8 AM CDT Ribonucleoprotein antibody positive C3 COMPLEMENT Routine 07/16/2024 9:08 AM CDT Ribonucleoprotein antibody positive COMPREHENSIVE METABOLIC PANEL Routine 07/16/2024 9:08 AM CDT Ribonucleoprotein antibody positive documented in this encounter Results * eGFR (07/16/2024 9:08 AM CDT) eGFR 66 >=60 mL/min/1. 73 m2 Comment: Interpretive Data Reference Interval Normal ?>/= 90 mL/min/1.73m2 Mildly decreased* ? 60 - 89 mL/min/1.73m2 Mildly to moderately decreased ?45 - 59 mL/min/1.73m2 Moderately to severely decreased ??30 - 44 mL/min/1.73m2 Severely decreased ?15 - 29 mL/min/1.73m2 Kidney Failure ?< 15 ??mL/min/1.73m2 *Relative to young adult level Estimated glomerular filtration rate is determined by the 2020 CKD-EPI equation recommended by the National Kidney Foundation (A Unifying Approach to GFR Estimation: Recommendations of the NKF-ASK Task Force on Reassessing the Inclusion of Race in Diagnosing Kidney Disease, JASN 2020). The CKD-EPI equation should not be used for patients with unstable renal function and has not been validated in children and those over 70. Current interpretive data was last reviewed 2021. Blood 07/16/2024 9:08 AM CDT 07/16/2024 4:02 PM CDT us Wallace Awad RN LAB BLOOD ORDERABLES Final Res ult [place] [address] Jennifer Esquivel Department [place] [address] * Cyclic citrul peptide antibody, IgG (07/16/2024 9:08 AM CDT) Pathologist [facility] CCP Ab <0.5 <=2.9 units/mL Comment: Interpretive data Negative: <3 units/mL Positive: > or equal to 3 units/mL Current interpretive data was last revised on 2017. Testing performed by: [facility], [address] [place]., [address] Blood 07/16/2024 9:08 AM CDT 07/17/2024 9:40 AM CDT Wallace Awad RN LAB BLOOD ORDERABLES Final Res ult Performing Organization Address [facility] Co de Phone Number [place] BOWMAN [phone] [address] [facility] [place] [address] * Rheumatoid factor (07/16/2024 9:08 AM CDT) Rheumatoid factor, quant <10 <=15 IUnits/mL Blood 07/16/2024 9:08 AM CDT 07/16/2024 3:50 PM CDT Wallace Awad RN LAB BLOOD ORDERABLES Final Res ult Performing Organization Address [facility] de Phone Number [place] [phone] [address] [facility] [place] [address] * Protein / creatinine ratio, urine, random (07/16/2024 9:08 AM CDT) Protein, ur, quant 8.9 mg/dL Comment: Interpretive Data No reference range established. Current interpretive data was last revised 2019. Creatinine Ur 172.7 mg/dL [place] BOWMAN Comment: Interpretive Data No reference range established. Current interpretive data was last revised 2019. Protein/creatinin e ratio 51.5 0.0 - 180.0 mg/g CR [place] Urine 07/16/2024 9:08 AM CDT 07/16/2024 3:50 PM CDT Wallace Awad RN LAB URINE ORDERABLES Final Res ult Performing Organization Address [facility] Co de Phone Number [place] B[place] [phone] [address] [facility] [place] [address] * C4 complement (07/16/2024 9:08 AM CDT) Complement C4 18 10 - 40 mg/dL Blood 07/16/2024 9:08 AM CDT 07/16/2024 3:50 PM CDT Wallace Awad RN LAB BLOOD ORDERABLES Final Res ult Performing Organization Address [facility] Co de Phone Number [place]BY [phone] [address] Es[address] [facility] [place] [address] * C3 complement (07/16/2024 9:08 AM CDT) Complement C3 131 90 - 180 mg/dL Blood 07/16/2024 9:08 AM CDT 07/16/2024 3:50 PM CDT Wallace Awad RN LAB BLOOD ORDERABLES Final Res ult Performing Organization Address [facility] de Phone Number [place] BOW[place] [phone] [address] Esquivel [facility] [place] [address] * Anti-double stranded DNA abs (07/16/2024 9:08 AM CDT) dsDNA Ab <1.0 <=4.0 IUnits/mL Comment: Interpretive Data Negative: < or = 4 IUnits/mL Indeterminate: 5 - 9 IUnits/mL Positive: > or = 10 IUnits/mL Current interpretive data was last revised on 2017. Testing performed by: [facility], [address] [place]., [address] Blood 07/16/2024 9:08 AM CDT 07/17/2024 9:40 AM CDT Wallace Awad RN LAB BLOOD ORDERABLES Final Res ult Performing Organization Address [facility] Co de Phone Number LENKRISTYN BOWMAN [phone] Jennifer Esquivel [facility] [place] [address] * Comprehensive metabolic panel (07/16/2024 9:08 AM CDT) Sodium 142 135 - 145 mmol/L Potassium, pl 4.1 3.3 - 4.9 mmol/L [facility] Chloride 105 97 - 110 mmol/L [facility] CO2 28 22 - 32 mmol/L [facility] Anion gap 9 2 - 15 mmol/L [facility] BUN 16 6 - 25 mg/dL [facility] Creatinine 0.97 0.60 - 1.10 mg/dL [facility] Glucose 86 70 - 199 mg/dL [facility] Comment: Interpretive Data Fasting glucose >/= 126 mg/dl is diagnostic for diabetes. ?? Fasting is defined as no caloric intake for at least 8 hours. Fasting glucose between 100 mg/dl to 125 mg/dl is diagnostic of prediabetes. In a patient with classic symptoms of hyperglycemia or hyperglycemic crisis, a random glucose >/= 200 mg/dl is diagnostic for diabetes. In the absence of unequivocal hyperglycemia, results should be confirmed by repeat testing. The classification and Diagnosis of Diabetes Diabetes Care 2021; 46: S19-S40. Current interpretive data was last revised 2022. Calcium 9.2 8.5 - 10.3 mg/dL [facility] Bilirubin, total 0.2 0.1 - 1.2 mg/dL [facility] Protein, pl 6.9 6.5 - 8.5 g/dL [facility] Albumin 4.2 3.5 - 5.0 g/dL [facility] Alk phos 83 40 - 130 Units/L [facility] ALT 15 7 - 45 Units/L [facility] AST 25 10 - 45 Units/L [facility] Blood 07/16/2024 9:08 AM CDT 07/16/2024 3:50 PM CDT us Wallace Awad RN LAB BLOOD ORDERABLES Final Res ult [place] [address] [address] Esquivel [place] [address] * (ABNORMAL) CBC without differential (07/16/2024 9:08 AM CDT) WBC 7.6 3.8 - 9.9 K/cumm Hgb 12.5 11.9 - 15.5 g/dL [facility] Hct 38.1 35.6 - 45.5 % [facility] Plt 265 150 - 400 K/cumm [facility] MPV 11.1 9.1 - 12.3 fL [facility] RBC 4.73 3.90 - 5.20 M/cumm [facility] MCV 80.5(L) 81.3 - 96.4 fL [facility] MCH 26.4(L) 27.1 - 33.3 pg [facility] MCHC 32.8 32.3 - 35.7 g/dL [facility] RDW CV 14.1 11.1 - 14.9 % [facility] RDW SD 41.6 35.7 - 48.1 fL [facility] NRBC abs 0.00 0.00 - 0.01 K/cumm [facility] Blood 07/16/2024 9:08 AM CDT 07/16/2024 3:50 PM CDT Wallace Awad RN LAB BLOOD ORDERABLES Final Res ult Performing Organization Address [facility]/ZIP Co de Phone Number LENKRISTYN BOWMAN [phone] [address] [place] [address] * HIV 1/2 Antibody plus p24 Antigen Blood (07/16/2024 9:08 AM CDT) HIV 1/2 ab + p24 ag Nonreactive Nonreactive Comment: Nonreactive for HIV-1 antigen and HIV-1/HIV-2 antibodies. No laboratory evidence of HIV infection. If acute HIV infection is suspected, consider testing for HIV-1 RNA. Blood 07/16/2024 9:08 AM CDT 07/16/2024 3:50 PM CDT Wallace Awad RN LAB MICROBIOLOGY - GENERAL ORD ERABLES Final Result [place] [address] Jennifer Esquivel Department [facility] [place], [place] [id number] * Hepatitis C antibody Blood (07/16/2024 9:08 [...] 9:08 AM CDT 07/16/2024 3:50 PM CDT Wallace Awad RN LAB MICROBIOLOGY - GENERAL ORD ERABLES Final Result Performing Organization Address [facility]/ZIP Co de Phone Number [place] BOWMAN [phone] Jennifer [place] [address] * Hepatitis B Surface Antigen Blood (07/16/2024 9:08 AM CDT) HepBsAg Nonreactive Nonreactive Blood 07/16/2024 9:08 AM CDT 07/16/2024 3:50 PM CDT Wallace Awad RN LAB MICROBIOLOGY - GENERAL ORD ERABLES Final Result Performing Organization Address [facility]/ZIP Co de Phone Number [place] [address] Jennifer [place] [address] * Hepatitis B core antibody, total Blood (07/16/2024 9:08 AM CDT) Hep B core IgG/IgM Nonreactive Nonreactive Comment:Testing performed by : [facility], [address] [facility], [place]., [address] Blood 07/16/2024 9:08 AM CDT 07/17/2024 9:40 AM CDT Senada Ritesh BOWL TURNER MICROBIOLOGY - GENERAL ORD ERABLES Final Result [place] [address] [address] Esqu[address] [place] [address] documented in this encounter Visit Diagnoses Diagnosis Ribonucleoprotein antibody positive documented in this encounter Care Teams Choke Setter Relationship Specialty Start Date End Date Brandon Dumont MD PCP - General 03/26/21 Abisai Moss MD Consulting Physician General Surgery 05/14/21 Nunu Steen MD Consulting Physician Gastroenterology 05/14/21 documented as of this encounter
--- OUTSIDE RECORDS SUMMARY | 2024-10-27 10:54 | XMS_ITS | Encounter Summary ---
Author Organization [facility] Healthcare Address [address] [place] [address] Care Team Providers Care Respiratory Therapy Director Name Role Phone Brandon Dumont MD Primary Care Provider [phone] Abisai Moss MD Unavailable Nunu Steen MD Unavailable [phone] Reason for Referral * Procedure (Routine) - Authorized Specialty Diagnoses / Procedures Referred By Contac t Referred To Contact Diagnoses Centrilobular emphysema (HCC) Procedures Pulmonary Function Test -[employer]; Complete PFT with 6 Minute Walk Mike Sims MD [address] [place] [address] DR FRAGOSO [address] [place] [id number] Phone: tel: fax: Referral ID Status Reason Start Date Expiration Date V isits Requested Visits Authorized [id number] Authorized 01/18/2024 02/16/2025 1 1 Encounter Details Date Type Department Care Team (Late st Contact Info) Description 01/18/2024 Orders Only [facility] Medical Group Pulmonary at [address] [place] [address] Mike Sims MD [address] [place] [address] DR FRAGOSO [address] [place] [phone] Centrilobular emphysema (HCC) (Primary Dx) Social History Tobacco Use Types Packs/Day Years Used Date Smoking Tobacco: Former Cigarettes 0.7 40 1 997 - 05/07/2023 Smokeless Tobacco: Never Comments:quit 2019 ARestarted 2 mo ago after daughter . Currently on 14mg patches Alcohol Use Standard Drinks/Week Comments Not Currently 0 (1 standard drink = 0.6 oz pur e alcohol) AUDIT-C Answer Date Recorded Q1: How often do you have a drink containing alc ohol? 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 Gender Identity Not on file Sexual Orientation Not on file documented as of this encounter Plan of Treatment Scheduled Orders Name Type Priority Associated Diagnoses Orde r Schedule Pulmonary Function Test -[employer]; Complete PFT with 6 Minute Walk PFT Routine Centrilobular emphysema (HCC) 1 Occurrences starting 01/18/2024 until 01/17/2025 documented as of this encounter Visit Diagnoses Diagnosis Centrilobular emphysema (HCC)- Primary documented in this encounter Care Teams Respiratory Therapy Director Relationship Specialty Start Date End Date Brandon Dumont MD PCP - General 03/26/21 Abisai Moss MD Consulting Physician General Surgery 05/14/21 Nunu Steen MD Consulting Physician Gastroenterology 05/14/21 documented as of this encounter
--- OUTSIDE RECORDS SUMMARY | 2024-10-27 10:54 | XMS_ITS | Encounter Summary ---
Author Organization [facility] Healthcare Address [address] [place] [address] Care Team Providers Care Translator And Interpreter Name Role Phone Brandon Dumont MD Primary Care Provider [phone] Abisai Moss MD Unavailable Nunu Steen MD Unavailable [phone] Reason for Visit * Reason Comments Follow-up Abdominal Pain Patient is being see n today for 6 month follow up for RUQ abdominal pain. Patient states that the abdominal pain is still the same. Encounter Details Date Type Department Care Team (Latest Contact Info) Description 10/14/2023 2:30 PM DATA ANALYST Office Visit [facility] Medical Group Gastroenterology at [address] [place] [address] Maged Patel PA [address] [place] [address] [address] [place] [address] RUQ abdominal pain (Primary Dx); Epigastric pain; Postprandial nausea; History of cholecystectomy; Pancreatic cyst; Tubular adenoma of colon; Leukocytosis, unspecified type Social History Tobacco Use Types Packs/Day Years Used Date Smoking Tobacco: Former Cigarettes 0.7 40 1 997 - 05/07/2023 Smokeless Tobacco: Never Tobacco Cessation:Counseling Given: Not Answered Comments:quit 2020 ARestarted 2 mo ago after [...] on file Legal Sex Female 12:50 AM DATA ANALYST Gender Identity Not on file Sexual Orientation Not on file documented as of this encounter Last Filed Vital Signs Vital Sign Reading Time Taken Comments Blood Pressure 126/83 10/14/2023 2:35 PM DATA ANALYST Pulse 78 10/14/2023 2:35 PM DATA ANALYST Temperature - - Respiratory Rate - - Oxygen Saturation 99% 10/14/2023 2:35 PM DATA ANALYST Inhaled Oxygen Concentration - - Weight 61 kg (134 lb 6.4 oz) 10/14/2023 2:35 PM DATA ANALYST Height 165.1 cm (5' 5 ) 10/14/2023 2:35 PM DATA ANALYST Body Mass Index 22.37 10/14/2023 2:35 PM DATA ANALYST documented in this encounter Patient Instructions * Patient Instructions* Maged Patel PA - 10/14/2023 2:30 PM DATA ANALYST -continue pepcid -will increase nortriptyline dose -continue colestid -repeat CBC ANALYST documented in this encounter Ordered Prescriptions Prescription Sig Dispense Quantity Refills Last Filled Start Date End Date nortriptyline (PAMELOR) 25 mg capsule Take 1 capsule (25 mg total) by mouth nightly 90 capsule 10/14/2023 colestipoL (COLESTID) 1 gram tablet Take 1 tablet (1 g total) by mouth 2 (two) times a day as needed (diarrhea) 60 tablet 10/14/2023 4 documented in this encounter Progress Notes * Maged Patel PA - 10/14/2023 2:30 PM CST Images from the original note were not included. FOLLOW-UP VISIT Chief Complaint Patient presents with Follow-up Abdominal Pain Patient is being seen today for 6 month follow up for RUQ abdominal pain. Patient states that the abdominal pain is still the same. SUBJECTIVE: HPI: Ms. Amado is following up for Follow-up and Abdominal Pain (Patient is being seen today for 6 monthfollow up for RUQ abdominal pain. Patient states that the abdominal pain is still the same. ) Patient is presenting to the office today as a follow-up for RUQ/epigastric abdominal pain, postprandial nausea. Last office visit was with ut 04/14/2023. At that visit she was started on a regimen of 10 mg nortriptyline nightly. She was advised to continue Zofran p.r.n., Pepcid, Gas-X p.r.n., Colestid. A recent CBC and CMP noted elevated WBC. Reports around that time she had bronchitis. As of today, she reports that she is overall doing okay. She is still having some of the right upper quadrant/epigastric abdominal pain, but does feel like the nortriptyline has somewhat helped. She remains on colestid as it helps with bowel regulation. She denies any new GI symptoms since last office visit. Past Medical History: Diagnosis Date Bladder spasms Chronic pain 2019 COVID 05/2022 Gall stones Hot flashes Hyperlipidemia Hypertension Past Surgical History: Procedure Laterality Date BACK SURGERY 2017 CHOLECYSTECTOMY COLONOSCOPY 12/15/2021 Patient Active Problem List Diagnosis Cigarette nicotine dependence, uncomplicated Decrease in appetite Degeneration of intervertebral disc of lumbar region Irritable mood Lumbar radiculopathy Menopause present Tobacco use Referred otalgia of left ear Allergic rhinitis Cholecystitis Anxiety Abnormality of rectum Elevated liver enzymes Choledocholithiasis with acute cholecystitis Uterine leiomyoma Epigastric pain S/P ERCP Colon cancer screening Diarrhea Nausea RUQ abdominal pain Laryngeal spasm Essential hypertension Current Outpatient Medications on File Prior to Visit Medication Sig Dispense Refill atorvastatin (LIPITOR) 10 mg tablet Take 1 tablet (10 mg total) by mouth daily benzonatate (TESSALON) 200 mg capsule Take 1 capsule (200 mg total) by mouth 3 (three) times a day as needed for cough 30 capsule 0 cloNIDine (CATAPRES) 0.3 mg tablet Take 1 tablet (0.3 mg total) by mouth daily cyclobenzaprine (FLEXERIL) 10 mg tablet Take 1 tablet (10 mg total) by mouth 3 (three) times a day as needed for muscle spasms 12 tablet 0 diazePAM (VALIUM) 5 mg tablet Take 1 tablet (5 mg total) by mouth 3 (three) times a day as needed ergocalciferol (VITAMIN D) 50,000 unit capsule gabapentin (NEURONTIN) 300 mg capsule Take 1 capsule (300 mg total) by mouth nightly 90 capsule 1 loratadine 10 mg capsule Take by mouth losartan (COZAAR) 25 mg tablet Take 1 tablet (25 mg total) by mouth daily methylPREDNISolone (Medrol, Talon,) 4 mg Dosepack follow package directions 1 packet 0 nicotine (NICODERM CQ) 14 mg oxybutynin (DITROPAN) 5 mg tablet tapentadol ER (NUCYNTA ER) 100 mg 12 hr tablet Take 1 tablet (100 mg total) by mouth 2 times daily venlafaxine (EFFEXOR) 75 mg tablet Take 1 tablet (75 mg total) by mouth nightly albuterol HFA (ProAir HFA) 90 mcg/actuation inhaler Inhale 2 puffs every 4 (four) hours as needed for wheezing or shortness of breath 8.5 g 0 colestipoL (COLESTID) 1 gram tablet Take 1 tablet (1 g total) by mouth 2 (two) times a day as needed (diarrhea) 60 tablet 0 famotidine (PEPCID) 40 mg tablet Take 1 tablet (40 mg total) by mouth nightly 90 tablet 3 fluticasone propionate (FLONASE) 50 mcg/actuation nasal spray Administer 2 sprays into each nostrildaily 16 g 11 hydrALAZINE (APRESOLINE) 25 mg tablet Take 1 tablet (25 mg total) by mouth 3 (three) times a day 90tablet 11 nortriptyline (PAMELOR) 10 mg capsule Take 1 capsule (10 mg total) by mouth nightly 90 capsule 0 No current facility-administered medications on file prior to visit. Family History Problem Relation Age of Onset Heart attack Mother Family history of myocardial infarction - (Added by TW Conv) Heart attack Father Family history of myocardial infarction - (Added by TW Conv) Social History Tobacco Use Smoking status: Former Packs/day: 0.75 Years: 40.00 Additional pack years: 0.00 Total pack years: 30.00 Types: Cigarettes Start date: 1996 Quit date: 05/07/2023 Years since quittin.4 Smokeless tobacco: Never Tobacco comments: quit 2019 ARestarted 2 mo ago after daughter . Currently on 14mg patches Substance and Sexual Activity Drug use: Yes Types: Tobacco, Muscle relaxant Sexual activity: Defer Alcohol Use: Not At Risk (10/14/2023) AUDIT-C Frequency of Alcohol Consumption: Never Average Number of Drinks: 1 or 2 Frequency of Binge Drinking: Not on file Allergies Allergen Reactions Adhesive Rash Review of Systems Constitutional: Negative for activity change, appetite change, chills, diaphoresis, fatigue, fever and unexpected weight change. HENT: Negative for congestion, ear pain, postnasal drip, rhinorrhea, sinus pressure, sinus pain, sneezing, sore throat and trouble swallowing. Eyes: Negative for photophobia and pain. Respiratory: Negative for cough. +shortness of breath Cardiovascular: Negative for chest pain, palpitations and leg swelling. Gastrointestinal: Positive for abdominal pain - improving. Negative for abdominal distention, analbleeding, blood in stool, constipation, diarrhea, rectal pain and vomiting. Genitourinary: Negative for dysuria, frequency, hematuria and urgency. Musculoskeletal: Negative for arthralgias and myalgias. Skin: Negative for pallor and rash. Neurological: Negative for dizziness, tremors, syncope, weakness and light-headedness. Psychiatric/Behavioral: Negative for confusion and dysphoric mood. The patient is not nervous/anxious. OBJECTIVE: Vitals BP 126/83 (BP Location: Left arm, Patient Position: Sitting) Pulse 78 Ht 165.1 cm (5' 5 ) Wt 61 kg (134 lb 6.4 oz) SpO2 99% BMI 22.37 kg/m?? Exam: Physical Exam Vitals reviewed. Constitutional: Appearance: Normal appearance. She is not ill-appearing. HENT: Head: Normocephalic and atraumatic. Right Ear: External ear normal. Left Ear: External ear normal. Nose: Nose normal. Mouth/Throat: Mouth: Mucous membranes are moist. Pharynx: No posterior oropharyngeal erythema. Eyes: Conjunctiva/sclera: Conjunctivae normal. Cardiovascular: Rate and Rhythm: Normal rate and regular rhythm. Pulses: Normal pulses. Pulmonary: Effort: Pulmonary effort is normal. Abdominal: General: Abdomen is flat. Bowel sounds are normal. There is no distension. Palpations: Abdomen is soft. There is no mass. Tenderness: There is no abdominal tenderness. There is no guarding or rebound. Hernia: No hernia is present. Musculoskeletal: General: Normal range of motion. Cervical back: Normal range of motion and neck supple. Skin: General: Skin is warm and dry. Neurological: Mental Status: She is alert and oriented to person, place, and time. Psychiatric: Mood and Affect: Mood normal. Behavior: Behavior normal. Labs and X Rays: - I reviewed all recent labs and X rays and endoscopy procedures. No visits with results within 3 Month(s) from this visit. Latest known visit with results is: Lab on 03/29/2023 Component Date Value Creatinine, bld 03/29/2023 1.30 GI Assessment & Plan: Diagnoses and all orders for this visit: RUQ abdominal pain (Primary) Epigastric pain Postprandial nausea Chronic. Persistent but somewhat improved. 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 Will increase nortriptyline to 25mg nightly. May continue to use Zofran p.r.n.. Continue on Pepcid. May use extra-strength Gas-X p.r.n.. History of cholecystectomy No c/o current fecal urgency or diarrhea. Continue colestid. Avoid any known trigger foods, including greasy/fatty foods. Pancreatic cyst Recent MRCP on 03/29/2023 noted that the known subcentimeter pancreatic head cystic lesion was suboptimally visualized. Will repeat imaging in 6 months; order at follow-up. Tubular adenoma of colon Patient has a history of tubular adenoma. She is on a 3 year screening schedule for colonoscopy, and is due in December 2024. Leukocytosis, unspecified type Most recent WBC noted to be elevated. Patient reports having bronchitis at that time. Will repeat CBC to assess WBC. CBC came back noting WBC mildly elevated at 10.0. Will repeat in one month. Total time spent on the date of the uzzc-xd-jmva encounter, including both adcw-xd-slab time (including staff/provider time spent providing education) and vap-nwxp-mq-face time (pre-charting, reviewing chart, post-charting) was 35 minutes. This note is dictated and transcribed by [employer]. Business Liaison Manager variances may occur. Despite proofreading, typographical errors may occur. My collaborating physician is Dr. Nunu Steen- Gastroenterology. VENESSA Chen ANALYST ANALYST documented in this encounter Miscellaneous Notes * Addendum Note - Maged Patel PA - 10/14/2023 2:30 PM CSTAddended by: MAGED PATEL on: 10/17/2023 12:52 PM Modules accepted: Orders ANALYST documented in this encounter Plan of Treatment Scheduled Orders Name Type Priority Associated Diagnoses Orde r Schedule CBC with auto differential Lab Routine Leukocytosis, unspecified type Expected: 11/17/2023, Expires: 10/17/2024 documented as of this encounter Results * (ABNORMAL) CBC with auto differential (10/14/2023 3:09 PM DATA ANALYST) WBC 10.0(H) 3.8 - 9.9 K/cumm [facility] Hgb 13.1 11.9 - 15.5 g/dL [facility] Comment: Interpretive Data A reference range for this assay has not been established for patients with an unknown legal sex. Please refer to the laboratory test catalog for established sex-specific reference intervals. Current interpretive data was last revised on 2023. Hct 38.1 35.6 - 45.5 % [facility] Comment: Interpretive Data A reference range for this assay has not been established for patients with an unknown legal sex. Please refer to the laboratory test catalog for established sex-specific reference intervals. Current interpretive data was last revised on 2023. Plt 234 150 - 400 K/cumm [facility] MPV 10.6 9.1 - 12.3 fL [facility] RBC 4.85 3.90 - 5.20 M/cumm [facility] Comment: Interpretive Data A reference range for this assay has not been established for patients with an unknown legal sex. Please refer to the laboratory test catalog for established sex-specific reference intervals. Current interpretive data was last revised on 2023. MCV 78.6(L) 81.3 - 96.4 fL [facility] MCH 27.0(L) 27.1 - 33.3 pg [facility] MCHC 34.4 32.3 - 35.7 g/dL [facility] RDW CV 14.1 11.1 - 14.9 % [facility] RDW SD 40.3 35.7 - 48.1 fL [facility] NRBC abs 0.00 0.00 - 0.01 K/cumm [facility] Blood 10/14/2023 3:09 PM DATA ANALYST 10/14/2023 4:02 PM DATA ANALYST us Maged [facility] BLOOD ORDERABLES Fin al Result [facility] ([place]) [facility] Department [place] [address] documented in this encounter Visit Diagnoses Diagnosis RUQ abdominal pain- Primary Abdominal pain, right upper quadrant Epigastric pain Abdominal pain, epigastric Postprandial nausea History of cholecystectomy Other acquired absence of organ Pancreatic cyst Cyst and pseudocyst of pancreas Tubular adenoma of colon Benign neoplasm of colon Leukocytosis, unspecified type documented in this encounter Discontinued Medications Medication Sig Discontinue Reason Start Date End Da te colestipoL (COLESTID) 1 gram tablet Take 1 tablet (1 g total) by mouth 2 (two) times a day as needed (diarrhea) Reorder 11/19/2022 10/14/2023 nortriptyline (PAMELOR) 10 mg capsule Take 1 capsule (10 mg total) by mouth nightly Reorder 07/12/2023 10/14/2023 documented as of this encounter Care Teams Translator And Interpreter Relationship Specialty Start Date End Date Brandon Dumont MD PCP - General 03/26/21 Abisai Moss MD Consulting Physician General Surgery 05/14/21 Nunu Steen MD Consulting Physician Gastroenterology 05/14/21 documented as of this encounter
--- OUTSIDE RECORDS SUMMARY | 2024-10-27 10:54 | XMS_ITS | Encounter Summary ---
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 Name Role Phone Brandon Dumont MD Primary Care Provider [phone] Abisai Moss MD Unavailable Nunu Steen MD Unavailable [phone] Reason for Visit * Reason Comments Nose Problem Nasal congestion * Consultation (Routine) - Closed Specialty Diagnoses / Procedures Referred By Naye alanis Referred To Contact Otolaryngology Diagnoses Tobacco use Weight loss Nunu Steen MD Phone: tel: fax: Alyce Bae DO [address] [address] [address] ANGEL Auguste [address] [address] Phone: tel: fax: Referral ID Status Reason Start Date Expiration Date V isits Requested Visits Authorized [id number] Closed Specialty Services Required 12/02/2022 01/01/2024 1 1 Encounter Details Date Type Department Care Team (Late st Contact Info) Description 02/23/2023 1:15 PM CDT Office Visit [facility] E[facility]ists - [facility] [address] [facility] [address] [place] [id number] Alyce Bae DO [address] ANGEL Auguste [facility] [address] [place] [address] Laryngeal spasm (Primary Dx); Non-seasonal allergic rhinitis due to pollen; Weight loss; Tobacco use Social History Tobacco Use Types Packs/Day Years Used Date Smoking Tobacco: Some Days Cigarettes 0.8 40 Smokeless Tobacco: Never Comments:quit 2019 ARestarted 2 mo ago after daughter . Currently on 14mg patches Alcohol Use Standard Drinks/Week Comments Not Currently 0 (1 standard drink = 0.6 oz pur e alcohol) AUDIT-C Answer Date Recorded Frequency of Alcohol Consumption Not on file 11/24/2022 Q2: How many drinks containi ng alcohol do you have on a typical day when you are drinking? 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 Gender Identity Not on file Sexual Orientation Not on file documented as of this encounter Last Filed Vital Signs Vital Sign Reading Time Taken Comments Blood Pressure 91/61 02/23/2023 1:29 PM CDT Pulse 83 02/23/2023 1:29 PM CDT Temperature 36.3 ??C (97.4 ??F) 02/23/2023 1:29 PM CD T Respiratory Rate - - Oxygen Saturation - - Inhaled Oxygen Concentration - - Weight 60.1 kg (132 lb 9.6 oz) 02/23/2023 1:29 P M CDT Height 165.1 cm (5' 5 ) 02/23/2023 1:29 PM CDT Body Mass Index 22.07 02/23/2023 1:29 PM CDT documented in this encounter Patient Instructions * Patient Instructions* Alyce Bae, - 02/23/2023 1:15 PM CDT Pepcid 40 mg at bedtime Nasal saline spray (Simply saline, Little Remedies, [place], [place]) 2 second sprays or 2 squeezes into each nostril while looking down over the sink, do not need to sniff in. Followed Flonase 2 sprays into each nostril while looking down over the sink, do not sniff in or blow nose after use for at least 30 minutes What is acid reflux? -- Acid reflux is when the acid that is normally in your stomach backs up intothe esophagus, the tube that carries food from your mouth to your stomach. Another term for acid reflux is laryngopharyngeal reflux (LPR) or gastroesophageal reflux (GERD). What are the symptoms of acid reflux? -- The symptoms include: Burning in the chest, known as heartburn Burning in the throat or an acid taste in the throat Stomach or chest pain Trouble swallowing Having a raspy voice or a sore throat Unexplained cough Frequent throat clearing Feeling that there is something caught in your throat Is there anything I can do on my own to improve my symptoms? -- Yes. You might feel better if you: ?Lose weight (if you are overweight) ?Raise the head of your bed by 4-6 inches (for example, by putting blocks of wood under the head ofthe of the bed) ?Avoid foods that make your symptoms worse (examples include coffee, chocolate, alcohol, peppermint, tomatoes, onions and fatty or spicy foods) ?Cut down on the amount of alcohol you drink ?Stop smoking, if you smoke ?Eat a bunch of small meals each day, rather than 2 or 3 big meals ?Avoid lying down for 4 hours after a meal What treatments can help with my acid reflux? -- There are a few main types of medicines that can help with the symptoms of acid reflux: antacids, surface acting agents, histamine blockers, and proton pump inhibitors. All of these medicines work by reducing or blocking stomach acid. But they each do that in a different way. Antacids and surface acting agents can relieve mild symptoms, but they work only for a short time. Histamine blockers are stronger and last longer than antacids and surface acting agents. You can buy antacids and most histamine blockers without a prescription. Proton pump inhibitors are the most effective medicines in treating LPR. Some of these medicines are sold without a prescription. But there are other versions that your doctor can prescribe. Sometimes acid refluxmedicines are less expensive if you get them with a prescription. Other times nonprescription medicines are less expensive. If cost is a concern for you, ask your pharmacist how you might reduce the cost of your medicines. Information provided courtesy of: Gift[employer]ocketToDate?? www.NextInput??2014 UpToDate?? documented in this encounter Ordered Prescriptions Prescription Sig Dispense Quantity Refills Last Filled Start Date End Date famotidine (PEPCID) 40 mg tabletIndications: Laryngeal spasm Take 1 tablet (40 mg total) by mouth nightly 90 tablet 3 02/23/2023 documented in this encounter Progress Notes * Alyce Bae DO - 02/23/2023 1:15 PM CDT Images from the original note were not included. ENT Consult Assessment & Plan: Diagnoses and all orders for this visit: Laryngeal spasm (Primary) Assessment & Plan: Pepcid 40 mg at bedtime Nasal saline spray (Simply saline, Little Remedies, [place], [place]) 2 second sprays or 2 squeezes into each nostril while looking down over the sink, do not need to sniff in. Followed Flonase 2 sprays into each nostril while looking down over the sink, do not sniff in or blow nose after use for at least 30 minutes Orders: - famotidine (PEPCID) 40 mg tablet; Take 1 tablet (40 mg total) by mouth nightly Non-seasonal allergic rhinitis due to pollen Assessment & Plan: Pepcid 40 mg at bedtime Nasal saline spray (Simply saline, Little Remedies, [place], [place]) 2 second sprays or 2 squeezes into each nostril while looking down over the sink, do not need to sniff in. Followed Flonase 2 sprays into each nostril while looking down over the sink, do not sniff in or blow nose after use for at least 30 minutes Weight loss - Ambulatory referral to ENT Tobacco use - Ambulatory referral to ENT Reason for Consult: Sinus pressure and postnasal drainage Requesting Provider: Nunu Steen MD SUBJECTIVE: Patient is a 62 y.o. female with chief complaint of sinus pressure and postnasal drainage. HPI: Joselyn reported location of complaint was nose and throat. This compliant quality was reported as constant and has a severity of moderate. The duration of this complaint was the last several months. Onset of this problems was several months and was associated with Covid infection last year, treated with breathing treatements. Heartburn and upset stomach, not currently taking reflux medication. FH: Negative for sore throat 11/24/22 EGD: Impression: - Normal examined duodenum. - Mild diffuse gastropathy Biopsied. - Normal esophagus. Recommendation: - Await pathology results. - Continue present medications. - Return to GI office as previously scheduled. Refer for complete ENT evaluation of the hypopharynx area OBJECTIVE: Review of Systems Constitutional: Negative. Negative for chills, fatigue and fever. HENT: Positive for sore throat and trouble swallowing. Negative for congestion, ear discharge, ear pain, hearing loss, nosebleeds, sinus pressure, tinnitus and voice change. Eyes: Negative. Negative for pain and discharge. Respiratory: Negative for apnea, cough, choking, shortness of breath, wheezing and stridor. Cardiovascular: Negative for chest pain, palpitations and leg swelling. Gastrointestinal: Negative for abdominal pain, constipation, nausea and vomiting. Negative for Heartburn, trouble swallowing foods or liquids Endocrine: Negative. Negative for cold intolerance and heat intolerance. Musculoskeletal: Negative. Negative for arthralgias, joint swelling, myalgias, neck pain and neck stiffness. Skin: Negative. Negative for color change, rash and wound. Negative for new skin lesions Allergic/Immunologic: Negative. Negative for environmental allergies and food allergies. Neurological: Negative. Negative for dizziness, syncope, speech difficulty, light-headedness and headaches. Hematological: Negative. Negative for adenopathy. Does not bruise/bleed easily. Psychiatric/Behavioral: Negative for agitation, behavioral problems and dysphoric mood. The patientis not nervous/anxious. Physical Exam Constitutional: She is oriented to person, place, and time. She appears well- developed. She is cooperative. No distress. HENT: Head: Normocephalic and atraumatic. Right Ear: Hearing, tympanic membrane, external ear and ear canal normal. Left Ear: Hearing, tympanic membrane, external ear and ear canal normal. Nose: Mucosal edema present. No rhinorrhea, sinus tenderness or nasal deformity. Mouth/Throat: Uvula is midline and mucous membranes are normal. Mucous membranes are moist. No orallesions. Posterior oropharyngeal erythema present. Eyes: Pupils are equal, round, and reactive to light. Conjunctivae and lids are normal. Neck: Trachea normal. Cardiovascular: No edema, no JVD, normal distal perfusion Pulmonary/Chest: Effort normal. No respiratory distress. No cough, wheezing or stridor Abdominal: Normal appearance. Musculoskeletal: General: Normal range of motion. Left shoulder: Normal. Cervical back: Full passive range of motion without pain, normal range of motion and neck supple. Lymphadenopathy: She has no cervical adenopathy. Neurological: She is alert and oriented to person, place, and time. No cranial nerve deficit. Coordination and gait normal. Skin: Skin is warm and dry. No rash noted. Nails show no clubbing. Psychiatric: Her speech is normal and behavior is normal. Mood, affect, judgment and thought content normal. Vitals reviewed. Examination of the pharynx with use of the laryngeal mirror was not able to be performed due to patient discomfort Neck: no palpable abnormality of submandibular or parotid gland Facial Nerve strength intact and symmetric Nasopharyngolaryngoscope procedure Patient was seen and examined, verbal consent was obtained. Laryngeal mirror attempted but unsuccessful due to patient's gag reflex. Afrin and lidocaine were applied into each nasal cavity and after allowing time for local the congestion, flexible fiberoptic scope was introduced into each nasal cavity noting nasal vestibule nasal septum inferior, middle, and superior turbinates. The lateral nasalwall, posterior nasal septum nasopharynx including torus tubarius, fossa of Rosenmuller, posterior nasopharynx and eustachian tube orifice were examined today. Scope was passed further into the oropharynx noting soft palate, base of tongue, vallecula, lingual and laryngeal surfaces of the epiglottis, then further the the larynx noting arytenoids, false and true vocal folds, pyriform sinuses and post-cricoid region. Patient was directed to phonate and swallow. Findings: Intranasally: no masses, polyps or purulence bilaterally, larynx: diffuse inflammation, vocal fold movement was symmetric to midline, swallow intact, no masses, polyps, lesions or ulcers. Alyce Bae DO documented in this encounter Miscellaneous Notes * Assessment & Plan Note - Alyce Bae DO - 02/23/2023 2:02 PM CDT Associated Problem(s): Laryngeal spasm Pepcid 40 mg at bedtime Nasal saline spray (Simply saline, Little Remedies, [place], [place]) 2 second sprays or 2 squeezes into each nostril while looking down over the sink, do not need to sniff in. Followed Flonase 2 sprays into each nostril while looking down over the sink, do not sniff in or blow nose after use for at least 30 minutes * Assessment & Plan Note - Alyce Bae DO - 02/23/2023 2:02 PM CDT Associated Problem(s): Allergic rhinitis Pepcid 40 mg at bedtime Nasal saline spray (Simply saline, Little Remedies, [place], [place]) 2 second sprays or 2 squeezes into each nostril while looking down over the sink, do not need to sniff in. Followed Flonase 2 sprays into each nostril while looking down over the sink, do not sniff in or blow nose after use for at least 30 minutes documented in this encounter Plan of Treatment Not on file documented as of this encounter Visit Diagnoses Diagnosis Laryngeal spasm- Primary Non-seasonal allergic rhinitis due to pollen Weight loss Loss of weight Tobacco use documented in this encounter Orders Outpatient Referral Count Last Ordered Date Fir st Ordered Date AMB REFERRAL TO ENT 1 02/23/2023 documented in this encounter Care Teams Printing Press Operator Relationship Specialty Start Date End Date Brandon Dumont MD PCP - General 03/26/21 Abisai Moss MD Consulting Physician General Surgery 05/14/21 Nunu Steen MD Consulting Physician Gastroenterology 05/14/21 documented as of this encounter
--- OUTSIDE RECORDS SUMMARY | 2024-10-27 10:54 | XMS_ITS | Encounter Summary ---
Author Organization [facility] Address [address] [place] [address] Care Team Providers Care Refund Specialist Name Role Phone Brandon Dumont MD Primary Care Provider [phone] Abisai Moss MD Unavailable Nunu Steen MD Unavailable [phone] Reason for Visit * Reason Onset Date Comments alpha 1 testing 01/19/2024 Encounter Details Date Type Department Care Team (Late st Contact Info) Description 01/19/[address] 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 Normal genotype. Patient was contacted by phone and was made aware of normal test results. Patient verbalized understanding and voiced no questions at this time. While on the phone with patient reminded patient that a six minute walk is still needed before her next office visit and also explained that Laney MADRIGAL called in her inhaler she had requested. Patient verbalized understanding to that message as well and said that she appreciated that and said that she would call Centralized scheduling for an apt. Phone number was provided to patient today. documented in this encounter Plan of Treatment Not on file documented as of this encounter Visit Diagnoses Not on filedocumented in this encounter Care Teams Refund Specialist Relationship Specialty Start Date End Date Brandon Dumont MD PCP - General 03/26/21 Abisai Moss MD Consulting Physician General Surgery 05/14/21 Nunu Steen MD Consulting Physician Gastroenterology 05/14/21 documented as of this encounter
--- OUTSIDE RECORDS SUMMARY | 2024-10-27 10:54 | XMS_ITS | Encounter Summary ---
Author Organization [facility] Address [address] [place] [address] Phone Care Team Providers Care Industrial Truck Operator Name Role Phone Brandon Dumont MD Primary Care Provider [phone] Abisai Moss MD Unavailable Nunu Steen MD Unavailable [phone] Reason for Referral * Consultation (Routine) - Closed Specialty Diagnoses / Procedures Referred By Contact Referred To Contact Physical Medicine and Rehabilitation Diagnoses Ribonucleoprotein antibody positive Wallace Awad RN Phone: tel: fax: [facility] (All Locations) Referral ID Status Reason Start Date Expiration Date V isits Requested Visits Authorized [id number] Closed Specialty Services Required 07/16/2024 08/15/2025 1 1 Question Answer Please select the performing region: [facility] (All Locations) [[id number]] # of visits: 1 Comments S/P left shoulder surgery, 4 months of PT, 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 and 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 Reason for Visit * Consultation (Routine) - Pending Review Specialty Diagnoses / Procedures Referred By Contac t Referred To Contact Rheumatology Diagnoses Ribonucleoprotein antibody positive Mukul Phelps MD [address] [place] [address] [address] [place] [address] Phone: tel: fax: [facility] (All Locations) Referral ID Status Reason Start Date Expiration Date Visits Requested Visits Authorized [id number] Pending Review Specialty Services Required 03/22/2024 04/21/2025 12 12 Encounter Details Date Type Department Care Team (Latest Contact Info) Description 07/16/2024 8:00 AM CDT Office Visit [facility] Rheumatology [address] [facility] [address] [place] [address] Wallace Awad RN [address] [place] [address] Ribonucleoprotein antibody positive Social History Tobacco Use Types Packs/Day Years [...] often do you attend chur ch or adventist services? 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 Gender Identity Not on file Sexual Orientation Not on file documented as of this encounter Last Filed Vital Signs Vital Sign Reading Time Taken Comments Blood Pressure 131/85 07/16/2024 8:12 AM CDT Pulse 77 07/16/2024 8:12 AM CDT Temperature 36.2 ??C (97.1 ??F) 07/16/2024 8:12 AM CD T Respiratory Rate - - Oxygen Saturation 100% 07/16/2024 8:12 AM CDT Inhaled Oxygen Concentration - - Weight 65.2 kg (143 lb 12.8 oz) 07/16/2024 8:12 AM CDT Height 165.1 cm (5' 5 ) 07/16/2024 8:12 AM CDT Body Mass Index 23.93 07/16/2024 8:12 AM CDT documented in this encounter Progress Notes * Wallace Awad, CERTIFIED FLIGHT INSTRUCTOR - 07/16/2024 8:00 AM CDT Images from the original note were not included. New Patient Visit HISTORY OF PRESENT ILLNESS: Joselyn Amado is a 63 y.o. female with a medical history of hypertension, DJD, previous tobacco use (quit 3 yrs ago), emphysema, and left shoulder injury s/p surgical repair in February. Referred for abnormal serology revealing positive QA ARCHITECT antibody. Unclear why this serology was obtained. Earlier this year in February she underwent left shoulder surgery following an injury at work. She hascompleted almost 4 months of physical therapy after her shoulder surgery and still struggles to usethis extremity. Around the same time she had an elevated white blood cell count of 14 which has since normalized. As for her positive QA ARCHITECT, the patient reports no specific joint pain, night sweats, swelling, photosensitivity, chronic oral or nasal sores, rashes, Raynaud's phenomenon, Sicca sx, or foamy or frothy urine to suggest lupus, mixed connective tissue disease, inflammatory arthritis or infection. She has no personal or family history of autoimmunity. She mentions at some point her sister was considered to have lupus but this was abandoned. She reports no undue fatigue other than occasional hot flashes or night sweats which she attributes to menopause. No significant shortness of breath (underlyingemphysema). She did have a syncopal episode a few months ago and an echocardiogram reviewing mitral valve calcification and she is scheduled with Cardiology to investigate this further. Previous workup: KINGA +, no titer QA ARCHITECT 2.5 (0-10) Segura, Scl70, SSA/B, Chromatin, Mercedes-1 and Centromere all negative Indeterminate dsDNA? (1, with reference range <0.9) CRP < 1 ESR 7 (0-40) CBC and CMP wnl Review of Systems: (-) Weight Loss, (-) Fatigue, (-) Fever, (-) Hair Loss, (-) Headache, (-) Scalp Tenderness, (-) Jaw Claudication, (-) h/o Scleritis/Episcleritis, (-) h/o Iritis/Uveitis, (- ) Oral/Nasal Ulcers, (-) Epistaxis, (-) Dry Eyes, (-) Dry Mouth, (-) Rash, (-) Photosensitivity, (-), Skin Ulcers, (-) Purpura/Petechiae, (-) Skin Tightening, (-) Pleurisy, (-) Pericarditis/Pericardial effusion, (-) Enthesitis, (-) Dactylitis, (-) Back Pain, (-) Raynaud's, (-) DVT/PE (-) Joint pain, (-) Gross Hematuria, (-) Asthma, (-) Sinusitis, (-) URI, (-) Hemoptysis, (-) Peripheral neuropathy, (-) [place] exposure.ROS per HPI, all other systems negative. 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 General: Well developed, sitting, in no acute distress HEENT : Sclera anicteric PERRL, no oral or nasal ulcers, adequate saliva pooling noted in oral cavity CV: RRR, no murmurs appreciated Pulm: CTAB Abdomen: not tender, not distended, +BS Neuro : AOx3, strength 5/5 throughout , no focal deficits Skin : No rashes or lesions Extremities: 2+ peripheral pulses bilaterally, no edema Musculoskeletal exam Shoulders: Inspection reveals no deformities or swellings. Palpation reveals no warmth or tenderness. FROM Elbows: Inspection reveals no visible deformities, swellings, or erythema upon inspection. No warmth or tenderness upon palpation. FROM Wrists/Hands: Inspection and palpation show no, deformities, swelling, erythema or tenderness. FROM. Traffic Circuit Engineer strength is 5/5. Hips: No deformities, warmth, erythema or swellings noted on inspection. Palpation reveals no warmth or tenderness. FROM. Knees/Ankles/Feet: Inspection and palpation show no abnormalities, deformities, or tenderness. FROM. Gait: Normal gait. No difficulty getting up from a seated position. INVESTIGATIONS: MRI SHOULDER LEFT WO CONTRAST Order: [id number] Impression IMPRESSION: Partial tear of the infraspinatus tendon at the insertion. Partial tear of the proximal long head of the biceps tendon. Mild degenerative changes of the left shoulder. Tear of the anterior labrum. Narrative EXAM: MRI SHOULDER WO CONTRAST LEFT STUDY DATE: 11/08/2023 4:17 PM CLINICAL INDICATION: Left shoulder strain COMPARISON: None PROCEDURE: Axial, coronal and sagittal MR images of the left shoulder were obtained without intravenous contrast. FINDINGS: The supraspinatus tendon is intact. There is focal partial thickness articular surface tear of the infraspinatus tendon at the insertion (series 6, image 20). The teres minor is intact. The subscapularis tendon is intact. There is T2 hyperintense signal in the proximal long head of the biceps tendon at the biceps anchor (series 4, image 10 and series 6, image 12), likely represents partial interstitial tear. There is mild acromioclavicular joint arthropathy. There is mild glenohumeral joint arthropathy. There is T2 hyperintense signal in the anterior labrum, likely represents a tear. No acute fracture. There is minimal subchondral cystic change at the greater tuberosity. There is no significant glenohumeral joint effusion. There are no intra-articular loose bodies. There is trace fluid in the subacromial/subdeltoid bursa. Exam End: 11/08/23 16:17 Specimen Collected: 11/08/23 16:18 Last Resulted: 11/09/23 07:37 Received From: [place] [place] [facility] Result Received: 01/05/24 14:08 ASSESSMENT AND PLAN: [age] year old female presents for evaluation of positive QA ARCHITECT antibodies. 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 Non-elevated inflammatory markers are reassuring, too. However the presence of positive QA ARCHITECT antibody and indeterminate dsDNA should be further investigated to rule out any predisposition to autoimmune disorders. We discussed that positive QA ARCHITECT antibody can be a marker of an autoimmune disorder such as lupus or other mixed connective tissue disorder which we will investigate further today and for which we willinitiate watchful monitoring if no significant findings. She had a chest CT with mild scarring in lung bases no suspicious lymphadenopathy or mediastinal masses she does have scattered tiny nodules bilaterally no bigger than 4 mm that are stable. 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 2020 C-spine MRI did show some degenerative changes that could account for her radiculopathy. I placed a referral to physiatry to explore further options and optimize her postsurgical recovery of left shoulder considering her continued impairment. We will continue monitoring for any development or evolution of symptoms given her abnormal serologies and will obtain baseline x-ray of hands to survey if there has been any undetected sign of inflammatory disorder and nonweightbearing joints. I encouraged her to report any new symptoms such as joint pain swelling rashes oral nasal sores photosensitivity or foamy or frothy urine. No immediate pharmacologic therapy recommended today. Orders Placed This Encounter Procedures HIV 1/2 Antibody plus p24 Antigen Blood Hepatitis C antibody Blood Hepatitis B Surface Antigen Blood Hepatitis B core antibody, total Blood XR Hand Bilateral 3 or More Views of Each CBC without differential Comprehensive metabolic panel Anti-double stranded DNA abs C3 complement C4 complement Protein / creatinine ratio, urine, random Rheumatoid factor Cyclic citrul peptide antibody, IgG Ambulatory referral to Orthopedic Physiatry Return in about 6 months (around 01/13/2025) -- with workup findings to be communicated in the meantime. - Impression and recommendations/plan discussed with patient in person; all questions answered. - I reconciled the patient's medication list and prepared and supplied any needed refills. I personally spent 60 minutes in the care and consultation of this patient, including records review, interpretation of tests, counseling on diagnosis and treatment options, communication with other providers and documentation. [facility] Division of Rheumatology For patients or family members viewing this note through [employer] programs: Our clinical notes serve as a communication tool between healthcare providers and may contain technical language, terminology and abbreviations that is difficult to interpret without advanced medicaltraining. Any laboratory or imagining findings are carefully considered within the context of the overall rheumatologic clinical presentation. If you have questions, your healthcare team will be happy to assist and provide any necessary clarifications. Cosigned by Daylin Marrero MD at 07/16/2024 1:33 PM CDT documented in this encounter Plan of Treatment Scheduled Orders Name Type Priority Associated Diagnoses Orde r Schedule XR Hand Bilateral 3 or More Views of Each Imaging Schedule Routine, Read Routine (OP Routine) Ribonucleoprotein antibody positive Expected: 07/16/2024, Expires: 07/16/2025 Scheduled Referrals Name Type Priority Associated Diagnoses Order Schedule Ambulatory referral to Orthopedic Physiatry Outpatient Referral Routine Ribonucleoprotein antibody positive Expected: 07/30/2024 (Approximate), Expires: 07/16/2025 documented as of this encounter Results * Hepatitis B core antibody, total Blood (07/16/2024 9:08 AM CDT) Hep B core IgG/IgM Nonreactive Nonreactive Comment:Testing performed by : [facility], [address] [facility], [place]., [address] Blood 07/16/2024 9:08 AM CDT 07/17/2024 9:40 AM CDT us Wallace Awad PT SKILLED MICROBIOLOGY - GENERAL ORD ERABLES Final Result SHAQU[place] BOWMAN [address] Department [place] [address] * Hepatitis B Surface Antigen Blood (07/16/2024 9:08 AM CDT) HepBsAg Nonreactive Nonreactive Blood 07/16/2024 9:08 AM CDT 07/16/2024 3:50 PM CDT Wallace Awad RN LAB MICROBIOLOGY - GENERAL ORD ERABLES Final Result Performing Organization Address [facility] Co de Phone Number [place] BOWMAN [address] Department [place] [address] * Hepatitis C antibody Blood (07/16/2024 9:08 [...] 9:08 AM CDT 07/16/2024 3:50 PM CDT Result [facility] Wallace Awad RN LAB MICROBIOLOGY - GENERAL ORD ERABLES Final Result Performing Organization Address [facility] [place] Number [place] [address] [address] Department [place] [address] * HIV 1/2 Antibody plus p24 Antigen [...] ORD ERABLES Final Result Performing Organization Address [facility] Co de Phone Number [place] [address] [address] [address] * Cyclic citrul peptide antibody, IgG (07/16/2024 9:08 AM CDT) Pathologist [facility] CCP Ab <0.5 <=2.9 units/mL Comment: Interpretive data Negative: <3 units/mL Positive: > or equal to 3 units/mL Current interpretive data was last revised on 2017. Testing performed by: [facility], [address] [place]., [address] Blood 07/16/2024 9:08 AM CDT 07/17/2024 9:40 AM CDT us Wallace Awad RN LAB BLOOD ORDERABLES Final Res ult Performing Organization Address [facility] de Phone Number [place] COLBY [address] [address] [address] * Rheumatoid factor (07/16/2024 9:08 AM CDT) Pathologist [facility] Rheumatoid factor, quant <10 <=15 IUnits/mL Blood 07/16/2024 9:08 AM CDT 07/16/2024 3:50 PM CDT Wallace Awad RN LAB BLOOD ORDERABLES Final Res ult Performing Organization Address [facility] de Phone Number LENKRISTYN [address] [address] [facility] [address] [address] * Protein / creatinine ratio, urine, random (07/16/2024 9:08 AM CDT) Pathologist [facility] Protein, ur, quant 8.9 mg/dL Comment: Interpretive Data No reference range established. Current interpretive data was last revised 2019. Creatinine Ur 172.7 mg/dL SHA[place]LE BOWMAN Comment: Interpretive Data No reference range established. Current interpretive data was last revised 2019. Protein/creatinin e ratio 51.5 0.0 - 180.0 mg/g CR [facility] Urine 07/16/2024 9:08 AM CDT 07/16/2024 3:50 PM CDT Wallace Awad RN LAB URINE ORDERABLES Final Res ult Performing Organization Address [facility] de Phone Number [place] [address] [address] [facility] [address] [address] * C4 complement (07/16/2024 9:08 AM CDT) Complement C4 18 10 - 40 mg/dL Blood 07/16/2024 9:08 AM CDT 07/16/2024 3:50 PM CDT Wallace Awad RN LAB BLOOD ORDERABLES Final Res ult Performing Organization Address [facility] de Phone Number [place] [address] [address] [address] * C3 complement (07/16/2024 9:08 AM CDT) Complement C3 131 90 - 180 mg/dL Blood 07/16/2024 9:08 AM CDT 07/16/2024 3:50 PM CDT Wallace Awad RN LAB BLOOD ORDERABLES Final Res ult Performing Organization Address [facility] de Phone Number [facility] [address] [address] [facility] [address] [address] * Anti-double stranded DNA abs (07/16/2024 9:08 AM CDT) dsDNA Ab <1.0 <=4.0 IUnits/mL Comment: Interpretive Data Negative: < or = 4 IUnits/mL Indeterminate: 5 - 9 IUnits/mL Positive: > or = 10 IUnits/mL Current interpretive data was last revised on 2017. Testing performed by: [facility], [address] [facility], [place]., [address] Blood 07/16/2024 9:08 AM CDT 07/17/2024 9:40 AM CDT us Wallace Awad RN LAB BLOOD ORDERABLES Final Res ult [facility] [address] [address] Department [place] [address] * Comprehensive metabolic panel (07/16/2024 9:08 AM [...] CDT 07/16/2024 3:50 PM CDT Wallace Awad PT SKILLED BLOOD ORDERABLES Final Res ult Performing Organization Address [facility] Co de Phone Number [place] [address] Department [place] [address] * (ABNORMAL) CBC without differential (07/16/2024 9:08 AM CDT) WBC 7.6 3.8 - 9.9 K/cumm Hgb 12.5 11.9 - 15.5 g/dL [facility] Hct 38.1 35.6 - 45.5 % [facility] Plt 265 150 - 400 K/cumm [facility] MPV 11.1 9.1 - 12.3 fL [facility] RBC 4.73 3.90 - 5.20 M/cumm [facility] MCV 80.5(L) 81.3 - 96.4 fL [facility] MCH 26.4(L) 27.1 - 33.3 pg [facility] MCHC 32.8 32.3 - 35.7 g/dL [facility] CH RDW CV 14.1 11.1 - 14.9 % [facility] RDW SD 41.6 35.7 - 48.1 fL [facility] NRBC abs 0.00 0.00 - 0.01 K/cumm [facility] Blood 07/16/2024 9:08 AM CDT 07/16/2024 3:50 PM CDT Wallace Awad PT SKILLED BLOOD ORDERABLES Final Res ult Performing Organization Address [facility]/ZIP Co de Phone Number [place] BOWMAN [address] Department [place] [address] documented in this encounter Visit Diagnoses Diagnosis Ribonucleoprotein antibody positive documented in this encounter Orders Outpatient Referral Count Last Ordered Date Fir st Ordered Date AMB REFERRAL TO RHEUMATOLOGY 1 07/16/2024 documented in this encounter Care Teams Industrial Truck Operator Relationship Specialty Start Date End Date Brandon Dumont MD PCP - General 03/26/21 Abisai Moss MD Consulting Physician General Surgery 05/14/21 Nunu Steen MD Consulting Physician Gastroenterology 05/14/21 documented as of this encounter
--- OUTSIDE RECORDS SUMMARY | 2024-10-27 10:54 | XMS_ITS | Encounter Summary ---
Author Organization [facility] Address [address] [place] [address] Care Team Providers Care Stretching Machine Operator Name Role Phone Brandon Dumont MD Primary Care Provider [phone] Abisai Moss MD Unavailable Nunu Steen MD Unavailable [phone] Encounter Details Date Type Department Care Team (Late st Contact Info) Description 07/12/2023 Telephone [facility] Gastroenterology at [address] [place] [address] Amy Hoffman MA Social History Tobacco Use Types Packs/Day Years Used Date Smoking Tobacco: Some Days Cigarettes 0.8 40 Smokeless Tobacco: Never Comments:quit 2020 ARestarted 2 [...] on file 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 Gender Identity Not on file Sexual Orientation Not on file documented as of this encounter Ordered Prescriptions Prescription Sig Dispense Quantity Refills Last Filled Start Date End Date nortriptyline (PAMELOR) 10 mg capsule Take 1 capsule (10 mg total) by mouth nightly 90 capsule 07/12/2023 documented in this encounter Miscellaneous Notes * Addendum Note - Maged Patel PA - 07/12/2023 8:56 AM CDTAddended by: MAGED PATEL on: 07/12/2023 08:56 AM Modules accepted: Orders * Telephone Encounter - Amy Hoffman MA - 07/12/2023 7:38 AM CDT Received a fax for a refill request for nortriptyline documented in this encounter Plan of Treatment Not on file documented as of this encounter Visit Diagnoses Not on filedocumented in this encounter Discontinued Medications Medication Sig Discontinue Reason Start Date End Da te nortriptyline (PAMELOR) 10 mg capsule Take 1 capsule (10 mg total) by mouth nightly Reorder 04/14/2023 07/12/2023 documented as of this encounter Care Teams Stretching Machine Operator Relationship Specialty Start Date End Date Brandon Dumont MD PCP - General 03/26/21 Abisai Moss MD Consulting Physician General Surgery 05/14/21 Nunu Steen MD Consulting Physician Gastroenterology 05/14/21 documented as of this encounter
--- OUTSIDE RECORDS SUMMARY | 2024-10-27 10:54 | XMS_ITS | Encounter Summary ---
Author Organization [facility] Address [address] [address] Care Team Providers Care Dance Costume Designer Name Role Phone Brandon Dumont MD Primary Care Provider [phone] Abisai Moss MD Unavailable Nunu Steen MD Unavailable [phone] Reason for Referral * Consultation (Routine) - Closed Specialty Diagnoses / Procedures Referred By Contdonald alanis Referred To Contact Otolaryngology Diagnoses Tobacco use Weight loss Nunu Steen MD Phone: tel: fax: Feliberto Bae, DO [address] [place] [address] [address] [address] Phone: tel: fax: Referral ID Status Reason Start Date Expiration Date V isits Requested Visits Authorized [id number] Closed Specialty Services Required 12/02/2022 01/01/2024 1 1 Question Answer Please select the performing region: [facility] [[id number]] Please select the performing department: [facility] [[id number]] To provider: FELIBERTO BAE [[id number]] # of visits: [address] 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 Gender Identity Not on file Sexual Orientation Not on file documented as of this encounter Plan of Treatment Scheduled Referrals Name Type Priority Associated Diagnoses Order Schedule Ambulatory referral to ENT Outpatient Referral Routine Tobacco use Weight loss Expected: 12/16/2022 (Approximate), Expires: 12/02/2023 documented as of this encounter Visit Diagnoses Diagnosis Weight loss- Primary Loss of weight Tobacco use documented in this encounter Care Teams Dance Costume Designer Relationship Specialty Start Date End Date Brandon Dumont MD PCP - General 03/26/21 Abisai Moss MD Consulting Physician General Surgery 05/14/21 Nunu Steen MD Consulting Physician Gastroenterology 05/14/21 documented as of this encounter
--- OUTSIDE RECORDS SUMMARY | 2024-10-27 10:54 | XMS_ITS | Encounter Summary ---
Author Organization [facility] Healthcare Address [address] [place] [address] Care Team Providers Care Produce Team Member Name Role Phone Brandon Dumont MD Primary Care Provider [phone] Abisai Moss MD Unavailable Nunu Steen MD Unavailable Reason for Referral * MRI/CAT/PET Scan (Routine) - Closed Specialty Diagnoses / Procedures Referred By Contac t Referred To Contact Radiology Diagnoses Nicotine dependence, cigarettes, uncomplicated Procedures CT Lung Cancer Screening Mike Sims MD Phone: tel: fax: [address] [phone] Referral ID Status Reason Start Date Expiration Date Visits Re quested Visits Authorized [id number] Closed 10/14/2022 11/13/2023 1 1 Reason for Visit * MRI/CAT/PET Scan (Routine) - Closed Specialty Diagnoses / Procedures Referred By Contac t Referred To Contact Radiology Diagnoses Nicotine dependence, cigarettes, uncomplicated Procedures CT Lung Cancer Screening Mike Sims MD Phone: tel: fax: [address] [phone] Referral ID Status Reason Start Date Expiration Date Visits Re quested Visits Authorized [id number] Closed 10/14/2022 11/13/2023 1 1 Encounter Details Date Type Department Care Team (Latest Contact Info) Description 07/12/2023 3:25 PM CDT - 07/12/2023 11:59 PM CDT Hospital Encounter [facility] [address] [place] [address] Nicotine dependence, cigarettes, uncomplicated Discharge Disposition: Discharge to home or self [...] on file 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 Gender Identity Not on file Sexual Orientation Not on file documented as of this encounter Medications at Time of Discharge albuterol HFA (ProAir HFA) 90 mcg/actuation inhalerIndication s:Cough Inhale 2 puffs every 4 (four) hours as needed for wheezing or shortness of breath 8.5 g 05/19/2022 atorvastatin (LIPITOR) 10 mg tablet Take 1 [...] 02/28/2017 ergocalciferol (VITAMIN D) 50,000 unit capsule famotidine (PEPCID) 40 mg tabletIndications :Laryngeal spasm Take 1 tablet (40 mg total) by mouth nightly 90 tablet 3 02/23/2023 fluticasone propionate (FLONASE) 50 mcg/actuation nasal sprayIndications: Allergic rhinitis, unspecified seasonality, unspecified trigger Administer 2 sprays into each nostril daily 16 g 11 09/30/2020 gabapentin (NEURONTIN) 300 mg capsule Take 1 capsule (300 mg total) by mouth nightly 90 capsule 1 09/03/2020 hydrALAZINE (APRESOLINE) 25 mg tabletIndications :hypertension Take 1 tablet (25 mg total) by mouth 3 (three) times a day 90 tablet 11 05/14/2021 loratadine 10 mg capsule Take by mouth losartan (COZAAR) 25 mg tablet Take 1 tablet (25 mg total) by mouth daily 10/08/2022 nicotine (NICODERM CQ) 14 mg 10/08/2022 oxybutynin (DITROPAN) 5 mg tablet 04/16/2021 tapentadol ER (NUCYNTA ER) 100 mg 12 hr tablet Take 1 tablet (100 mg total) by mouth 2 times daily 01/26/2017 venlafaxine (EFFEXOR) 75 mg tablet Take 1 tablet (75 mg total) by mouth nightly azithromycin (ZITHROMAX) 250 mg tablet 04/12/2023 3 benzonatate (TESSALON) 200 mg capsuleIndication s:Cough Take 1 capsule (200 mg total) by mouth 3 (three) times a day as needed for cough 30 capsule 05/19/2022 4 colestipoL (COLESTID) 1 gram tablet Take 1 tablet (1 g total) by mouth 2 (two) times a day as needed (diarrhea) 60 tablet 11/19/2022 3 nortriptyline (PAMELOR) 10 mg capsule Take 1 capsule (10 mg total) by mouth nightly 90 capsule 07/12/2023 3 documented as of this encounter Discharge Disposition Disposition Code Departure Means Destination Discharge to home or self care documented in this encounter Plan of Treatment Not on file documented as of this encounter Procedures Procedure Name Priority Date/Time Associated Diagnosis Comments CT LUNG CANCER SCREENING Schedule Routine, Read Routine (OP Routine) 07/12/2023 3:47 PM CDT Nicotine dependence, cigarettes, uncomplicated documented in this encounter Results * CT Lung Cancer Screening (07/12/2023 3:47 [...] AM T: ??07/14/2023 8:33 AM Report ID: [id number] Reading Location: [id number] Procedure Note Martin Murray MD - 07/14/2023 [...] Martin Plasencia M.D. RL: CLAY Report ID: [id number] Reading Location: [place] [address] Mike Sims MD IM CT PROCEDURES Final Result documented in this encounter Visit Diagnoses Diagnosis Nicotine dependence, cigarettes, uncomplicated documented in this encounter Care Teams Produce Team Member Relationship Specialty Start Date End Date Brandon Dumont MD PCP - General 03/26/21 Abisai Moss MD Consulting Physician General Surgery 05/14/21 Nunu Steen MD Consulting Physician Gastroenterology 05/14/21 documented as of this encounter
--- OUTSIDE RECORDS SUMMARY | 2024-10-27 10:54 | XMS_ITS | Encounter Summary ---
Author Organization [facility] Healthcare Address [address] [place] [address] Care Team Providers Care Freelance Displayer Name Role Phone Brandon Dumont MD Primary Care Provider [phone] Abisai Moss MD Unavailable Nunu Steen MD Unavailable [phone] Reason for Visit * Reason Onset Date Comments oxygen 01/16/2024 Encounter Details Date Type Department Care Team (Late st Contact Info) Description 01/16/2024 Telephone [facility] Pulmonary at [address] [place] [address] Lulu Daniel LPN oxygen Social History Tobacco Use Types Packs/Day Years [...] on file 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 * Telephone Encounter - Lulu Daniel LPN - 01/17/2024 4:11 PM CDT Oxygen [facility] Patient states she still using the oxygen sometimes. * Telephone Encounter - Lulu Daniel LPN - 01/16/2024 1:25 PM CDT Called and left pt a message asking her to call back regarding her oxygen. We received an order [facility]. It appears the patient has been on it since June of 2023. Called and spoke with Lupe as well and she will get back with me on who originally ordered and with what testing. If patientcalls back please ask her if she is still on oxygen? How many liters? With activity? documented in this encounter Plan of Treatment Not on file documented as of this encounter Visit Diagnoses Not on filedocumented in this encounter Care Teams Freelance Displayer Relationship Specialty Start Date End Date Brandon Dumont MD PCP - General 03/26/21 Abisai Moss MD Consulting Physician General Surgery 05/14/21 Nunu Steen MD Consulting Physician Gastroenterology 05/14/21 documented as of this encounter
--- OUTSIDE RECORDS SUMMARY | 2024-10-27 10:54 | XMS_ITS | Encounter Summary ---
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 Gender Identity Not on file Sexual Orientation Not on file documented as of this encounter Plan of Treatment Not on file documented as of this encounter Procedures Procedure Name Priority Date/Time Associated Diagnosis Comments DIFFERENTIAL AUTO Routine 10/14/2023 3:0 9 PM FAST FOOD SALES ASSISTANT Leukocytosis, unspecified type CBC WITH AUTO DIFFERENTIAL Routine 10/14/2023 3:09 PM FAST FOOD SALES ASSISTANT Leukocytosis, unspecified type documented in this encounter Results * (ABNORMAL) Differential, auto (10/14/2023 3:09 PM FAST FOOD SALES ASSISTANT) Neutrophil abs 5.5 1.5 - 6.5 K/cumm [facility] Imm gran abs 0.0 0.0 - 0.1 K/cumm [facility] Lymphocyte abs 3.3 0.8 - 3.3 K/cumm [facility] Monocyte abs 0.6 0.2 - 0.8 K/cumm [facility] Eosinophil abs 0.6(H) 0.0 - 0.5 K/cumm [facility] Basophil abs 0.1 0.0 - 0.1 K/cumm [facility] Neutrophil pct 54.8 % [facility] Comment: Interpretive Data Percent cell count reference ranges are not reported, since discordance with absolute values may lead to misinterpretation of CBC data. Current Interpretive Data was last revised on 2018. Imm gran pct 0.2 % [facility] Comment: Interpretive Data Percent cell count reference ranges are not reported, since discordance with absolute values may lead to misinterpretation of CBC data. Current Interpretive Data was last revised on 2018. Lymphocyte pct 33.2 % [facility] Comment: Interpretive Data Percent cell count reference ranges are not reported, since discordance with absolute values may lead to misinterpretation of CBC data. Current Interpretive Data was last revised on 2018. Monocyte pct 5.5 % [facility] Comment: Interpretive Data Percent cell count reference ranges are not reported, since discordance with absolute values may lead to misinterpretation of CBC data. Current Interpretive Data was last revised on 2018. Eosinophil pct 5.7 % [facility] Comment: Interpretive Data Percent cell count reference ranges are not reported, since discordance with absolute values may lead to misinterpretation of CBC data. Current Interpretive Data was last revised on 2018. Basophil pct 0.6 % [facility] Comment: Interpretive Data Percent cell count reference ranges are not reported, since discordance with absolute values may lead to misinterpretation of CBC data. Current Interpretive Data was last revised on 2018. Blood 10/14/2023 3:09 PM FAST FOOD SALES ASSISTANT 10/14/2023 4:02 PM FAST FOOD SALES ASSISTANT us Jania [facility] BLOOD ORDERABLES Fin al Result [facility] Department [place] [address] * (ABNORMAL) CBC with auto differential (10/14/2023 3:09 PM FAST FOOD SALES ASSISTANT) WBC 10.0(H) 3.8 - 9.9 K/cumm [facility] [...] 2023. MCV 78.6(L) 81.3 - 96.4 fL [facility] MCH 27.0(L) 27.1 - 33.3 pg [facility] MCHC 34.4 32.3 - 35.7 g/dL [facility] RDW CV 14.1 11.1 - 14.9 % [facility] RDW SD 40.3 35.7 - 48.1 fL [facility] NRBC abs 0.00 0.00 - 0.01 K/cumm [facility] Blood 10/14/2023 3:09 PM FAST FOOD SALES ASSISTANT 10/14/2023 4:02 PM FAST FOOD SALES ASSISTANT Jania [facility] BLOOD ORDERABLES Fin al Result [facility] ([place] [address] [facility] Department [place] [address] documented in this encounter Visit Diagnoses Diagnosis Leukocytosis, unspecified type documented in this encounter Care Teams Fire Extinguisher Mechanic Relationship Specialty Start Date End Date Brandon Dumont MD PCP - General 03/26/21 Abisai Moss MD Consulting Physician General Surgery 05/14/21 Nunu Steen MD Consulting Physician Gastroenterology 05/14/21 documented as of this encounter
--- OUTSIDE RECORDS SUMMARY | 2024-10-27 10:54 | XMS_ITS | Encounter Summary ---
Author Organization [facility] Healthcare Address [address] [place] [address] Care Team Providers Care Wax Specialist Name Role Phone Brandon Dumont MD Primary Care Provider [phone] Absiai Moss MD Unavailable Nunu Steen MD Unavailable [phone] Reason for Visit * Reason Onset Date Comments Anoro 11/14/2023 Encounter Details Date Type Department Care Team (Late st Contact Info) Description 11/14/2023 Telephone [facility] Pulmonary at [address] [place] [address] Penny Mooney LPN Anoro Social History Tobacco Use Types Packs/Day Years [...] on file 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 If we do not have any Anoro she may use Stiolto as an alternative Informed patient to come and get samples, and let us know after she finds out from her insurance company. Pt verbalizes good understanding. MOBILE SALES REPRESENTATIVE * Telephone Encounter - Penny Mooney LPN - 11/14/2023 2:59 PM AUTOMOBILE SALES REPRESENTATIVE Pt called for refill Anoro, going to be over $200.00, and stating she called the insurance company and the other ones covered are also over $200.00, she is going to call her insurance company again to see if it is a deductable or just going to be that high. Pt requesting samples until she can get it figured out. MOBILE SALES REPRESENTATIVE documented in this encounter Plan of Treatment Not on file documented as of this encounter Visit Diagnoses Not on filedocumented in this encounter Care Teams Wax Specialist Relationship Specialty Start Date End Date Brandon Dumont MD PCP - General 03/26/21 Abisai Moss MD Consulting Physician General Surgery 05/14/21 Nunu Steen MD Consulting Physician Gastroenterology 05/14/21 documented as of this encounter
--- OUTSIDE RECORDS SUMMARY | 2024-10-27 10:54 | XMS_ITS | Encounter Summary ---
Author Organization [facility] Healthcare Address [address] [place] [address] Care Team Providers Care Dynamics Ax Technical Architect Name Role Phone Brandon Dumont MD Primary Care Provider [phone] Abisai Moss MD Unavailable Nunu Steen MD Unavailable [phone] Reason for Visit * Diagnostic Imaging (Routine) - Closed Specialty Diagnoses / Procedures Referred By Contac t Referred To Contact Diagnoses RUQ abdominal pain Epigastric pain Postprandial nausea Procedures NM Gastric Emptying Jania See PA [address] [place] [address] [address] Phone: tel: fax: [address] [phone] Referral ID Status Reason Start Date Expiration Date Visits Re quested Visits Authorized [id number] Closed 11/19/2022 12/19/2023 5 5 Encounter Details Date Type Department Care Team (Latest Contact Info) Description 12/06/2022 1:49 PM ORE FEEDER - 12/06/2022 11:59 PM ORE FEEDER Hospital Encounter 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 Sex Female 12:50 AM ORE FEEDER Gender Identity Not on file Sexual Orientation Not on file documented as of this encounter Medications at Time of Discharge albuterol HFA (ProAir HFA) 90 mcg/actuation inhalerIndications: Cough Inhale 2 puffs every 4 (four) hours [...] 02/28/2017 ergocalciferol (VITAMIN D) 50,000 unit capsule fluticasone propionate (FLONASE) 50 mcg/actuation nasal sprayIndications:Al lergic rhinitis, unspecified seasonality, unspecified trigger Administer 2 sprays into each nostril daily 16 g 11 09/30/2020 gabapentin (NEURONTIN) 300 mg capsule Take 1 capsule (300 mg total) by mouth nightly 90 capsule 1 09/03/2020 hydrALAZINE (APRESOLINE) 25 mg tabletIndications:h ypertension Take 1 tablet (25 mg total) by [...] tablet (75 mg total) by mouth nightly ondansetron ODT (ZOFRAN-ODT) 8 mg disintegrating tablet Take 1 tablet (8 mg total) by mouth every 8 (eight) hours as needed for nausea or vomiting 30 tablet 11/19/2022 3 benzonatate (TESSALON) 200 mg capsuleIndications: Cough Take 1 capsule (200 mg total) by mouth 3 (three) times a day as needed for cough 30 capsule 05/19/2022 4 colestipoL (COLESTID) 1 gram tablet Take 1 tablet (1 g total) by mouth 2 (two) times a day as needed (diarrhea) 60 tablet 11/19/2022 3 nortriptyline (PAMELOR) 10 mg capsule Take 1 capsule (10 mg total) by mouth nightly 30 capsule 2 11/19/2022 3 documented as of this encounter Discharge Disposition Disposition Code Departure Means Destination Discharge to home or self care documented in this encounter Plan of Treatment Not on file documented as of this encounter Procedures Procedure Name Priority Date/Time Associated Diagnosis Comments NM GASTRIC EMPTYING STUDY Schedule Routine, Read Routine (OP Routine) 12/06/2022 1:52 PM ORE FEEDER RUQ abdominal pain Epigastric pain Postprandial nausea documented in this encounter Results * NM Gastric Emptying (12/06/2022 1:52 PM ORE FEEDER) Anatomical Region Laterality Modality Body N/A Nuclear Medicine 12/06/2022 2:28 PM ORE FEEDER Narrative 12/06/2022 2:29 PM ORE FEEDER EXAM DESCRIPTION: ?? NM GASTRIC EMPTYING STUDY RADIOPHARMACEUTICAL: ?? 530 ??uCi Tc-99m sulfur colloid incorporated into ?? eggs p.o. REASON FOR STUDY: ?? Epigastric pain, postprandial nausea. ??Nausea and diarrhea continuing after cholecystectomy 2 years ago. TECHNIQUE: After oral ingestion of the radiolabeled meal, sequential anterior and posterior abdominal images were obtained. COMPARISON: ?? CT chest abdomen pelvis 07/08/2022 FINDINGS: At 60 minutes, the residual activity is ?? 42% ??(normal: 30-90%). At 120 minutes, the residual activity is ?? 18% ??(normal: less than 60%). At 180 minutes, the residual activity is ?? 5% ??(normal: less than 30%). At 240 minutes, the residual activity is ?? 0% ??(normal: less than 10%). IMPRESSION: ??Normal ??gastric emptying. THIS IS AN ELECTRONICALLY VERIFIED FINAL REPORT 12/06/2022 2:29 PM - Electronically signed by ??Michael Harris M.D. BC: PRITI D: ??12/06/2022 2:29 PM T: ??12/06/2022 2:29 PM Report ID: [id number] Reading Location: ??[id number] Procedure Note Michael Harris MD - 12/06/2022 EXAM DESCRIPTION: NM GASTRIC EMPTYING STUDY RADIOPHARMACEUTICAL: 530 uCi Tc-99m sulfur colloid incorporated intoeggs p.o. REASON FOR STUDY: Epigastric pain, postprandial nausea. Nausea anddiarrhea continuing after cholecystectomy 2 years ago. TECHNIQUE: After oral ingestion of the radiolabeled meal, sequentialanterior and posterior abdominal images were obtained. COMPARISON: CT chest abdomen pelvis 07/08/2022 FINDINGS: At 60 minutes, the residual activity is 42% (normal: 30-90%). At 120 minutes, the residual activity is 18% (normal: less than 60%). At 180 minutes, the residual activity is 5% (normal: less than 30%). At 240 minutes, the residual activity is 0% (normal: less than 10%). IMPRESSION: Normal gastric emptying. THIS IS AN ELECTRONICALLY VERIFIED FINAL REPORT 12/06/2022 2:29 PM - Electronically signed by Michael Harris M.D. BC: PRITI Report ID: [id number] Reading Location: [id number] Jania [facility] IMG NM PROCEDURES Final Result documented in this encounter Visit Diagnoses Not on filedocumented in this encounter Care Teams Dynamics Ax Technical Architect Relationship Specialty Start Date End Date Brandon Dumont MD PCP - General 03/26/21 Abisai Moss MD Consulting Physician General Surgery 05/14/21 Nunu Steen MD Consulting Physician Gastroenterology 05/14/21 documented as of this encounter
--- OUTSIDE RECORDS SUMMARY | 2024-10-27 10:54 | XMS_ITS | Encounter Summary ---
Author Organization [facility] Address [address] [place] [address] Care Team Providers Care Auto Hiker Name Role Phone Brandon Dumont MD Primary Care Provider [phone] Abisai Moss MD Unavailable Nunu Steen MD Unavailable [phone] Reason for Visit * Reason Comments Follow-up Patient is in the of [facility] for a four month follow up. Patient states she is still having some abdominal pain but the medication is helping Encounter Details Date Type Department Care Team (Latest Contact Info) Description 04/14/2023 2:30 PM CDT Office Visit [facility] Gastroenterology at [address] [place] [address] Jania See PA [address] [place] [address] [address] [place] [address] RUQ abdominal pain (Primary Dx); Epigastric pain; Postprandial nausea; History of cholecystectomy; Pancreatic cyst; Tubular adenoma of colon; Shortness of breath Social History Tobacco Use Types Packs/Day Years Used Date Smoking Tobacco: Some Days Cigarettes 0.8 40 Smokeless Tobacco: Never Tobacco Cessation:Ready to Q uit: Not Asked; Counseling Given: Not Answered Comments:quit 2020 ARestarted 2 [...] on file 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 Gender Identity Not on file Sexual Orientation Not on file documented as of this encounter Last Filed Vital Signs Vital Sign Reading Time Taken Comments Blood Pressure 145/91 04/14/2023 2:44 PM CDT Pulse 96 04/14/2023 2:44 PM CDT Temperature - - Respiratory Rate - - Oxygen Saturation 84% 04/14/2023 2:44 PM CDT Inhaled Oxygen Concentration - - Weight 58.9 kg (129 lb 14.4 oz) 04/14/2023 2:44 PM CDT Height 165.1 cm (5' 5 ) 04/14/2023 2:44 PM CDT Body Mass Index 21.62 04/14/2023 2:44 PM CDT documented in this encounter Patient Instructions * Patient Instructions* Jania See PA - 04/14/2023 2:30 PM CDT -Continue extra-strength gasX 3x/day as needed. -Continue nightly 10mg nortriptyline. -Continue colestid. -Continue to use zofran as needed. -repeat imaging in 6-12 months for continued monitoring of pancreatic cysts. documented in this encounter Ordered Prescriptions Prescription Sig Dispense Quantity Refills Last Filled Start Date End Date ondansetron (ZOFRAN) 8 mg tablet Take 1 tablet (8 mg total) by mouth every 8 (eight) hours as needed for nausea or vomiting 90 tablet 04/14/2023 nortriptyline (PAMELOR) 10 mg capsule Take 1 capsule (10 mg total) by mouth nightly 30 capsule 2 04/14/2023 3 documented in this encounter Progress Notes * Jania See PA - 04/14/2023 2:30 PM CDT Images from the original note were not included. FOLLOW-UP VISIT Chief Complaint Patient presents with Follow-up Patient is in the office for a four month follow up. Patient states she is still having some abdominal pain but the medication is helping SUBJECTIVE: HPI: Ms. Amado is following up for Follow-up (Patient is in the office for a four month follow up. Patient states she is still having some abdominal pain but the medication is helping) Patient is presenting to the office today as a follow-up for chronic right upper quadrant abdominalpain. Last office visit was with me on 11/19/2022. At that visit patient was started on low-dose nortriptyline. An EGD was scheduled and performed 11/24/2022 which noted mild diffuse gastropathy but was otherwise unremarkable; H pylori testing was negative. Gastric emptying study was ordered and performed 12/06/2022 which was normal. Additionally, she underwent an MRCP for further monitoring of her previously noted pancreatic cysts. MRCP was performed 03/29/2023 which noted suboptimal visualization of previously noted subcentimeter pancreatic head cystic lesion. As of today, patient states she is feeling a little bit better in regards to her GI symptoms. She is no longer having right upper quadrant abdominal pain and feels like the medication is helping. Shewill use Zofran as needed, but she is not having to use it very often. She is using Colestid, but states she has started to decrease the dose. She is now following with ENT who started her on 40 mg Pepcid daily and feels like this is helping. She does note some shortness of breath for the past few weeks; is following with PCP. She denies any new GI symptoms since last office visit. She denies anydysphagia, diarrhea, constipation, melena, hematochezia, recent intentional weight loss, fever. Past Medical History: Diagnosis Date Bladder spasms [...] Prior to Visit Medication Sig Dispense Refill albuterol HFA (ProAir HFA) 90 mcg/actuation inhaler Inhale 2 puffs every 4 (four) hours as needed for wheezing or shortness of breath 8.5 g 0 atorvastatin (LIPITOR) 10 mg tablet Take 1 tablet (10 mg total) by mouth daily azithromycin (ZITHROMAX) 250 mg tablet cloNIDine (CATAPRES) 0.3 mg tablet Take 1 tablet (0.3 mg total) by mouth daily colestipoL (COLESTID) 1 gram tablet Take 1 tablet (1 g total) by mouth 2 (two) times a day as needed (diarrhea) 60 tablet 0 cyclobenzaprine (FLEXERIL) 10 mg tablet Take 1 tablet (10 mg total) by mouth 3 (three) times a day as needed for muscle spasms 12 tablet 0 diazePAM (VALIUM) 5 mg tablet Take 1 tablet (5 mg total) by mouth 3 (three) times a day as needed ergocalciferol (VITAMIN D) 50,000 unit capsule famotidine (PEPCID) 40 mg tablet Take 1 tablet (40 mg total) by mouth nightly 90 tablet 3 fluticasone propionate (FLONASE) 50 mcg/actuation nasal spray Administer 2 sprays into each nostrildaily 16 g 11 gabapentin (NEURONTIN) 300 mg capsule Take 1 capsule (300 mg total) by mouth nightly 90 capsule 1 hydrALAZINE (APRESOLINE) 25 mg tablet Take 1 tablet (25 mg total) by mouth 3 (three) times a day 90tablet 11 loratadine 10 mg capsule Take by mouth losartan (COZAAR) 25 mg tablet Take 1 tablet (25 mg total) by mouth daily nicotine (NICODERM CQ) 14 mg oxybutynin (DITROPAN) 5 mg tablet tapentadol ER (NUCYNTA ER) 100 mg 12 hr tablet Take 1 tablet (100 mg total) by mouth 2 times daily venlafaxine (EFFEXOR) 75 mg tablet Take 1 tablet (75 mg total) by mouth nightly [DISCONTINUED] nortriptyline (PAMELOR) 10 mg capsule Take 1 capsule (10 mg total) by mouth nightly 30 capsule 2 benzonatate (TESSALON) 200 mg capsule Take 1 capsule (200 mg total) by mouth 3 (three) times a day as needed for cough (Patient not taking: Reported on 02/23/2023) 30 capsule 0 No current facility-administered medications on file prior to visit. Family History Problem Relation Age of Onset Heart attack Mother Family history of myocardial infarction - (Added by TW Conv) Heart attack Father Family history of myocardial infarction - (Added by TW Conv) Social History Tobacco Use Smoking status: Some Days Packs/day: 0.75 Years: 40.00 Pack years: 30.00 Types: Cigarettes Smokeless tobacco: Never Tobacco comments: quit 2020 ARestarted 2 mo ago after daughter . Currently on 14mg patches Substance and Sexual Activity Drug use: Yes Types: Tobacco, Muscle relaxant Sexual activity: Defer Alcohol Use: Unknown (11/24/2022) AUDIT-C Frequency of Alcohol Consumption: Not on file Average Number of Drinks: 1 or 2 [...] pain - improving. Negative for abdominal distention, anal bleeding, blood in stool, constipation, diarrhea, rectal pain and vomiting. Genitourinary: Negative for dysuria, frequency, hematuria and urgency. Musculoskeletal: Negative for arthralgias and myalgias. Skin: Negative for pallor and rash. Neurological: Negative for dizziness, tremors, syncope, weakness and light-headedness. Psychiatric/Behavioral: Negative for confusion and dysphoric mood. The patient is not nervous/anxious. OBJECTIVE: Vitals BP 145/91 (BP Location: Left arm, Patient Position: Sitting) Pulse 96 Ht 165.1 cm (5' 5 ) Wt 58.9 kg (129 lb 14.4 oz) SpO2 (!) 84% BMI 21.62 kg/m?? Exam: Physical Exam Vitals reviewed. Constitutional: Appearance: Normal appearance. She is not ill-appearing. HENT: Head: Normocephalic and atraumatic. Right Ear: External ear normal. Left Ear: External ear normal. Nose: Nose normal. Mouth/Throat: Mouth: Mucous membranes are moist. Pharynx: No posterior oropharyngeal erythema. Eyes: Conjunctiva/sclera: Conjunctivae normal. Cardiovascular: Rate and Rhythm: Normal rate and regular rhythm. Pulses: Normal pulses. Heart sounds: Normal heart sounds. Pulmonary: Effort: Pulmonary effort is normal. Breath sounds: +mild inspiratory and expiratory wheezing BL Abdominal: General: Abdomen is flat. Bowel sounds [...] labs and X rays and endoscopy procedures. Lab on 03/29/2023 Component Date Value Creatinine, bld 03/29/2023 1.30 GI Assessment & Plan: Diagnoses and all orders for this visit: RUQ abdominal pain (Primary) Epigastric pain Postprandial nausea Improved. 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 Will continue 10 mg nortriptyline nightly. May continue to use Zofran p.r.n.. Continue on Pepcid. May use extra-strength Gas-X p.r.n.. History of cholecystectomy No further issues with fecal urgency or diarrhea. Continue colestid. Avoid any known trigger foods,including greasy/fatty foods. Pancreatic cyst Recent MRCP on 03/29/2023 noted that the known subcentimeter pancreatic head cystic lesion was suboptimally visualized. Will repeat imaging in 6-12 months. Tubular adenoma of colon Patient has a history of tubular adenoma. She is on a 3 year screening schedule for colonoscopy, and is due in December 2024. Shortness of breath Original O2 sat was 84% at time of presentation for appointment. O2 sat improved to 91% after resting. Patient following with PCP and reports having appointment tomorrow morning. Currently using inhaler, breathing treatments p.r.n.. Recently started Z-Talon. Continue to follow-up with PCP and proceedto ED if symptoms worsen. Other orders - nortriptyline (PAMELOR) 10 mg capsule; Take 1 capsule (10 mg total) by mouth nightly - ondansetron (ZOFRAN) 8 mg tablet; Take 1 tablet (8 mg total) by mouth every 8 (eight) hours as needed for nausea or vomiting Total time spent on the date of the hlbk-kb-scne encounter, including both uvfb-lt-hfrf time (including staff/provider time spent providing education) and wpe-fvfk-ni-face time (pre-charting, reviewing chart, post-charting) was 30 minutes. This note is dictated and transcribed by [employer]. Client Sales And Service Officer variances may occur. Despite proofreading, typographical errors may occur. My collaborating physician is Dr. Nunu Steen- Gastroenterology. VENESSA Chen documented in this encounter Plan of Treatment Not on file documented as of this encounter Visit Diagnoses Diagnosis RUQ abdominal pain- Primary Abdominal pain, right upper quadrant Epigastric pain Abdominal pain, epigastric Postprandial nausea History of cholecystectomy Other acquired absence of organ Pancreatic cyst Cyst and pseudocyst of pancreas Tubular adenoma of colon Benign neoplasm of colon Shortness of breath documented in this encounter Discontinued Medications Medication Sig Discontinue Reason Start Date End Da te nortriptyline (PAMELOR) 10 mg capsule Take 1 capsule (10 mg total) by mouth nightly Reorder 11/19/2022 04/14/2023 documented as of this encounter Historical Medications * This list may reflect changes made after this encounter. Medication Sig Dispense Quantity Refills Last Filled Start D ate End Date azithromycin (ZITHROMAX) 250 mg tablet 04/12/2023 10/04/2023 added in this encounter Care Teams Auto Hiker Relationship Specialty Start Date End Date Brandon Dumont MD PCP - General 03/26/21 Abisai Moss MD Consulting Physician General Surgery 05/14/21 Nunu Steen MD Consulting Physician Gastroenterology 05/14/21 documented as of this encounter
--- OUTSIDE RECORDS SUMMARY | 2024-10-27 10:54 | XMS_ITS | Encounter Summary ---
Author Organization [facility] Address [address] [place] [address] Care Team Providers Care Crown Wheel Assembler Name Role Phone Brandon Dumont MD Primary Care Provider [phone] Abisai Moss MD Unavailable Nunu Steen MD Unavailable [phone] Reason for Referral * Diagnostic Imaging (Routine) - Closed Specialty Diagnoses / Procedures Referred By Naye alanis Referred To Contact Diagnoses Encounter for screening mammogram for malignant neoplasm of breast Procedures Screening Mammogram Bilateral W Gretel Parham MD [address] [place] [address] [address] [place] [address] Phone: tel: fax: [address] [phone] Referral ID Status Reason Start Date Expiration Date Visits Re quested Visits Authorized [id number] Closed 07/15/2023 08/13/2024 1 1 ER OUT Reason for Visit * Diagnostic Imaging (Routine) - Closed Specialty Diagnoses / Procedures Referred By Naye alanis Referred To Contact Diagnoses Encounter for screening mammogram for malignant neoplasm of breast Procedures Screening Mammogram Bilateral W Gretel Parham MD [address] [place] [address] [address] [place] [address] Phone: tel: fax: [address] [phone] Referral ID Status Reason Start Date Expiration Date Visits Re quested Visits Authorized [id number] Closed 07/15/2023 08/13/2024 1 1 Encounter Details Date Type Department Care Team (Latest Contact Info) Description 09/13/2023 2:28 PM SHAKER OUT - 09/13/2023 11:59 PM SHAKER OUT Hospital Encounter [facility] [address] [place] [address] Encounter for screening mammogram for malignant neoplasm of breast Discharge Disposition: Discharge to home or self [...] on file Legal Sex Female 12:50 AM SHAKER OUT Gender Identity Not on file Sexual Orientation [...] Procedure Name Priority Date/Time Associated Diagnosis Comments SCREENING MAMMOGRAM BILATERAL W CHIO Schedule Routine, Read Routine (OP Routine) 09/13/2023 2:47 PM SHAKER OUT Encounter for screening mammogram for malignant neoplasm of breast documented in this encounter Results * Screening Mammogram Bilateral W Chio (09/13/2023 2:47 PM SHAKER OUT) Anatomical Region Laterality Modality Breast Bilateral Mammography 09/13/2023 4:48 PM SHAKER OUT Impressions 09/13/2023 4:48 PM SHAKER OUT There is no mammographic evidence of malignancy. A 1 year screening mammogram is recommended. BI-RADS: 1 - Negative. The patient has been or will be contacted. The patient will be entered into a reminder system with a target due date of 1 year for her next mammogram. Electronically signed by: Melina Pineda M.D. Narrative 09/13/2023 4:48 PM SHAKER OUT EXAMINATION: SCREENING MAMMOGRAM BILATERAL W CHIO ORDERING HEALTHCARE PROVIDER: GRETEL ALVAREZ HISTORY: Routine [...] There has been no suspicious interval change. Gretel Alvarez MD IMG MAMMO PROCEDURES Final Re sult documented in this encounter Visit Diagnoses Diagnosis Encounter for screening mammogram for malignant neoplasm of breast documented in this encounter Care Teams Crown Wheel Assembler Relationship Specialty Start Date End Date Brandon Dumont MD PCP - General 03/26/21 Abisai Moss MD Consulting Physician General Surgery 05/14/21 Nunu Steen MD Consulting Physician Gastroenterology 05/14/21 documented as of this encounter
--- OUTSIDE RECORDS SUMMARY | 2024-10-27 10:54 | XMS_ITS | Encounter Summary ---
Author Organization [facility] Address [address] [place] [address] Care Team Providers Care General Matcher Name Role Phone Brandon Dumont MD Primary Care Provider [phone] Abisai Moss MD Unavailable Nunu Steen MD Unavailable [phone] Reason for Referral * MRI/CAT/PET Scan (Routine) - Closed Specialty Diagnoses / Procedures Referred By Naye alanis Referred To Contact Radiology Diagnoses Pancreatic cyst Procedures MRI/MRCP (abdomen) W WO CONTRAST Jania See PA [address] [place] [address] [address] [place] [address] Phone: tel: fax: [address] [phone] Referral ID Status Reason Start Date Expiration Date Visits Re quested Visits Authorized [id number] Closed 11/19/2022 12/19/2023 1 1 Reason for Visit * MRI/CAT/PET Scan (Routine) - Closed Specialty Diagnoses / Procedures Referred By Naye alanis Referred To Contact Radiology Diagnoses Pancreatic cyst Procedures MRI/MRCP (abdomen) W WO CONTRAST Jania See PA [address] [place] [address] [address] [place] [address] Phone: tel: fax: [address] [phone] Referral ID Status Reason Start Date Expiration Date Visits Re quested Visits Authorized [id number] Closed 11/19/2022 12/19/2023 1 1 Encounter Details Date Type Department Care Team (Latest Contact Info) Description 03/29/2023 6:50 AM CDT - 03/29/2023 11:59 PM CDT Hospital Encounter [facility] [address] [place] [address] Pancreatic cyst Discharge Disposition: Discharge to home or self [...] on file 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 MRI ABDOMEN MRCP W WO CONTRAST REASON FOR STUDY: ?? History of pancreatic cystic lesion seen on CT performed July 08, 2022 for follow-up. TECHNIQUE: MRI of the abdomen performed ?? without and with ??intravenous contrast according to the ??pancreas ??protocol. ??3D images rendered on scanning unit and reviewed at time of interpretation. ?? All images stored on PACS. ? CONTRAST TYPE/DOSE: ?? 6mL of GADOTERATE MEGLUMINE 0.5 MMOL/ML INTRAVENOUS SOLUTION (SO) ??injected via ?? intravenous COMPARISON: ?MRI dated August 12, 2022 REFERENCE: Per ACR white paper recommendations, unless otherwise specified no follow-up imaging is recommended for incidental renal and adrenal lesions per consensus recommendations based on imaging criteria. Further lab evaluation could be pursued based on clinical findings. FINDINGS: LOWER CHEST: ?? No effusion. LIVER: ?? Normal size. ??No mass. No cysts. GALLBLADDER: ??Surgically absent BILE DUCTS: ?? No intrahepatic or extrahepatic ductal dilatation. SPLEEN: ?? Normal size. ??No focal lesions. PANCREAS: ?? No masses. No adjacent inflammation or peripancreatic fluid collections. Pancreatic duct not dilated ADRENALS: ?? Normal. KIDNEYS/URINARY TRACT: ?? No solid masses. No cysts. No hydronephrosis or hydroureter. ??Symmetric enhancement. ?? GI: ?? No visualized abnormality. PERITONEUM: ?? No ascites. RETROPERITONEUM: ?? No mass or adenopathy. VASCULATURE: ?? No abdominal aortic aneurysm. MUSCULOSKELETAL: ?? No acute findings. OTHER: ?? No other abnormality. IMPRESSION: The known subcentimeter pancreatic head cystic lesion is suboptimally visualized on today's examination.. Cholecystectomy. ??No intrahepatic or extrahepatic biliary ductal dilatation. THIS IS AN ELECTRONICALLY VERIFIED FINAL REPORT 03/29/2023 4:13 PM - Electronically signed by ??Clement Moralez.D. JA: POWER D: ??03/29/2023 4:13 PM T: ??03/29/2023 4:13 PM Report ID: [id number] Reading Location: ??[id number] Procedure Note Clement De Los Santos MD - 03/29/2023 EXAM DESCRIPTION: MRI ABDOMEN MRCP W WO CONTRAST REASON FOR STUDY: History of pancreatic cystic lesion seen on CTperformed July 08, 2022 for follow-up. TECHNIQUE: MRI of the abdomen performed without and with intravenous contrast according to the pancreas protocol. 3D images rendered onscanning unit and reviewed at time of interpretation. All images stored on PACS. CONTRAST TYPE/DOSE: 6mL of GADOTERATE MEGLUMINE 0.5 MMOL/ML INTRAVENOUS SOLUTION (SO) injected via intravenous COMPARISON: MRI dated August 12, 2022 REFERENCE: Per ACR white paper recommendations, unless otherwise specifiedno follow-up imaging is recommended for incidental renal and adrenal lesionsper consensus recommendations based on imaging criteria. Further labevaluation could be pursued based on clinical findings. FINDINGS: LOWER CHEST: No effusion. LIVER: Normal size. No mass. No cysts. GALLBLADDER: Surgically absent BILE DUCTS: No intrahepatic or extrahepatic ductal dilatation. SPLEEN: Normal size. No focal lesions. PANCREAS: No masses. No adjacent inflammation or peripancreatic fluid collections. Pancreatic duct not dilated ADRENALS: Normal. KIDNEYS/URINARY TRACT: No solid masses. No cysts. No hydronephrosis or hydroureter. Symmetric enhancement. GI: No visualized abnormality. PERITONEUM: No ascites. RETROPERITONEUM: No mass or adenopathy. VASCULATURE: No abdominal aortic aneurysm. MUSCULOSKELETAL: No acute findings. OTHER: No other abnormality. IMPRESSION: The known subcentimeter pancreatic head cystic lesion is suboptimally visualized on today's examination.. Cholecystectomy. No intrahepatic or extrahepatic biliary ductaldilatation. THIS IS AN ELECTRONICALLY VERIFIED FINAL REPORT 03/29/2023 4:13 PM - Electronically signed by Clement De Los Santos M.D. JA: POWER Report ID: [id number] Reading Location: [id number] Jania [facility] IMG MRI PROCEDURES Final Result documented in this encounter Visit Diagnoses Diagnosis Pancreatic cyst Cyst and pseudocyst of pancreas documented in this encounter Administered Medications Inactive Administered Medications - up to 3 most recent administrations Medication Order MAR Action Action Date Dose Rate Site gadoterate meglumine injection 6 mL 6 mL, intravenous, Once in imaging, contrast, Starting on 03/29/23 at 0816, For 1 dose Contrast Given 03/29/2023 8:17 AM CDT 6 mL documented in this encounter Orders Medications Ordered That Sonu ht Not Have Been Administered Count Last Ordered Date First Ordered Date gadoterate meglumine injection 6 mL 1 03/29 documented in this encounter Care Teams General Matcher Relationship Specialty Start Date End Date Brandon Dumont MD PCP - General 03/26/21 Abisai Moss MD Consulting Physician General Surgery 05/14/21 Nunu Steen MD Consulting Physician Gastroenterology 05/14/21 documented as of this encounter
--- OUTSIDE RECORDS SUMMARY | 2024-10-27 10:54 | XMS_ITS | Encounter Summary ---
Author Organization [facility] Healthcare Address [address] [place] [address] Care Team Providers Care Right Of Way Maintenance Supervisor Name Role Phone Brandon Dumont MD Primary Care Provider [phone] Abisai Moss MD Unavailable Nunu Steen MD Unavailable [phone] Reason for Referral * MRI/CAT/PET Scan (Routine) - Authorized Specialty Diagnoses / Procedures Referred By Contac t Referred To Contact Radiology Diagnoses Nicotine dependence, cigarettes, in remission Procedures CT Lung Cancer Screening Mike Sims MD [address] [place] [address] DR FRAGOSO [address] [place] [address] Phone: tel: fax: [address] [address] Referral ID Status Reason Start Date Expiration Date V isits Requested Visits Authorized [id number] Authorized 01/05/2024 02/03/2025 1 1 [facility]ER Reason for Visit * Reason Comments follow up Encounter Details Date Type Department Care Team (Late st Contact Info) Description 01/05/2024 2:15 PM [facility] Office Visit [facility] Pulmonary at [address] [address] Mike Sims MD [address] [place] [address] [address] Centrilobular emphysema (HCC) (Primary Dx); Nicotine dependence, cigarettes, in remission Social History Tobacco Use Types Packs/Day Years [...] on file Legal Sex 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 Gender Identity Not on file Sexual Orientation Not on file documented as of this encounter Last Filed Vital Signs Vital Sign Reading Time Taken Comments Blood Pressure 104/60 01/05/2024 2:15 PM COMM[facility]ITY FUNDRAISER Pulse 62 01/05/2024 2:15 PM [facility] Temperature 36 ??C (96.8 ??F) 01/05/2024 2:15 PM COMM[facility]ITY [facility]DRA[facility]ER Respiratory Rate - - Oxygen Saturation 99% 01/05/2024 2:15 PM [facility] Inhaled Oxygen Concentration - - Weight 63.7 kg (140 lb 6.4 oz) 01/05/2024 2:15 P M [facility] Height 165.1 cm (5' 5 ) 01/05/2024 2:15 PM COMM[facility]ITY [facility]DRA[facility]ER Body Mass Index 23.36 01/05/2024 2:15 PM COMM[facility]ITY [facility]DRAISER documented in this encounter Progress Notes * Mike Sims MD - 01/05/2024 2:15 PM CST Images from the original note were not included. PULMONARY CLINIC NOTE Visit Date: 01/05/2024 Chief Complaint: Presents today for dyspnea HPI: Joselyn Amado is a 63 y.o. female w/ PMH of tobacco use and laparoscopic cholecystectomy for cholelithiasis who presents on 01/05/2024 for evaluation of dyspnea The patient was first seen in October and at that time she reports she underwent laparoscopic cholecystectomy in [place] of 2021. She was having RUQ pain at the time but it has subsequently resolved Interval History: Unfortunately her Anoro was not covered by insurance and she has been using it sparingly. While she has been using Anoro less regularly she reports perhaps some mild increase in dyspnea but does not believe it is limiting her. She denies any respiratory illnesses or exacerbations in the interval Exposure History: No relevant exposures Past Medical History: Past Medical History: Diagnosis Date Bladder spasms Chronic pain 2019 COVID 05/2022 Gall stones Hot flashes Hyperlipidemia Hypertension Family History: Family History Problem Relation Age of Onset Heart attack Mother Family history of myocardial infarction - (Added by TW Conv) Heart attack Father Family history of myocardial infarction - (Added by TW Conv) Social History: Started smoking again after her daughter in August. Off and on. Started at age 14. Smoked approximately 40 years Review of Systems: Pertinent positives notes in HPI. Otherwise a 10 pt review of systems is negative. OBJECTIVE: Physical Exam: Vitals: 01/05/24 1415 BP: 104/60 BP Location: Left arm Patient Position: Sitting Pulse: 62 Temp: 36 ??C (96.8 ??F) TempSrc: Temporal SpO2: 99% Weight: 63.7 kg (140 lb 6.4 oz) Height: 165.1 cm (5' 5 ) General: appears comfortable in no apparent distress Eyes: anicteric, no redness or drainage, EOMI Neck: no thyromegaly or lymphadenopathy Cardiovascular: regular rate and rhythm, no murmurs, no edema or JVD Respiratory: wheezing, non labored Gastrointestinal: abdomen is soft and non-tender, + bowel sounds Musculoskeletal: no joint swelling or tenderness Neurologic: No focal deficits Skin: warm and dry Data Review: LDCT 07/12/23: Personally reviewed and my interpretation is notable for no new or worrisome pulmonarynodules. Unchanged scarring and background emphysematous changes CT chest abdomen pelvis 07/08/2022: Personally reviewed and notable for background emphysematous changes. There are multiple tiny bilateral pulmonary nodules that are not worrisome. There is some linear scarring in the right middle lobe as well as some atelectasis within the lingula that appears chronic in nature and is unchanged from prior scan. There is mildly prominent bilateral hilar lymphadenopathy No erythrocytosis. Prior intermittent peripheral eosinophilia is noted Alpha-1 antitrypsin: MM Pulmonary Functions Testing Results: None to review ASSESSMENT AND PLAN 1. Centrilobular emphysema (HCC) - Job was expensive under her insurance coverage, she was provided with samples of Stiolto and will check on preferred inhalers - continue albuterol as needed - alpha-1 antitrypsin mm - pulmonary function testing reordered today, this will help establish her baseline 2. Nicotine dependence, cigarettes, uncomplicated - the patient has quit cigarettes but has turned to vaping - we discussed reducing nicotine content and ultimately weaning off vaping - continue lung cancer screening with CT in July of 2024 My total encounter time on 01/05/2024 was 26 minutes which was spent in the activities documented inthe note. This includes time spent prior to the visit and after the visit in direct care of the patient. This time does not include time spent in any separately reportable services. Mike Sims MD There may be syntax/grammatical errors in this note due to the use of voice recognition software. documented in this encounter Plan of Treatment Scheduled Orders Name Type Priority Associated Diagnoses Orde r Schedule CT Lung Cancer Screening Imaging Schedule Routine, Read Routine (OP Routine) Nicotine dependence, cigarettes, in remission Expected: 07/12/2024, Expires: 03/05/2025 documented as of this encounter Visit Diagnoses Diagnosis Centrilobular emphysema (HCC)- Primary Nicotine dependence, cigarettes, in remission documented in this encounter Care Teams Right Of Way Maintenance Supervisor Relationship Specialty Start Date End Date Brandon Dumont MD PCP - General 03/26/21 Abisai Moss MD Consulting Physician General Surgery 05/14/21 Nunu Steen MD Consulting Physician Gastroenterology 05/14/21 documented as of this encounter
--- OUTSIDE RECORDS SUMMARY | 2024-10-27 10:54 | XMS_ITS | Encounter Summary ---
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 Patient is aware of date/time/location of CT LCS. documented in this encounter Plan of Treatment Not on file documented as of this encounter Visit Diagnoses Not on filedocumented in this encounter Care Teams Cover Stitch Machine Operator Relationship Specialty Start Date End Date Brandon Dumont MD PCP - General 03/26/21 Abisai Moss MD Consulting Physician General Surgery 05/14/21 Nunu Steen MD Consulting Physician Gastroenterology 05/14/21 documented as of this encounter
--- OUTSIDE RECORDS SUMMARY | 2024-10-27 10:54 | XMS_ITS | Encounter Summary ---
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 Patient is aware of date/time/location of CT LCS. documented in this encounter Plan of Treatment Not on file documented as of this encounter Visit Diagnoses Not on filedocumented in this encounter Care Teams Baggagemaster Relationship Specialty Start Date End Date Brandon Dumont MD PCP - General 03/26/21 Abisai Moss MD Consulting Physician General Surgery 05/14/21 Nunu Steen MD Consulting Physician Gastroenterology 05/14/21 documented as of this encounter
--- OUTSIDE RECORDS SUMMARY | 2024-10-27 10:54 | XMS_ITS | Encounter Summary ---
Author Organization [facility] Healthcare Address [address] [place] [address] Care Team Providers Care Form Maker Plaster Name Role Phone Brandon Dumont MD Primary Care Provider [phone] Abisai Moss MD Unavailable Nunu Steen MD Unavailable [phone] Reason for Visit * Reason Onset Date Comments Alpha-1 Antitrypsin Deficiency 10/17/2023 Encounter Details Date Type Department Care Team (Late st Contact Info) Description 10/17/2023 Telephone [facility] Medical [facility] Pulmonary at [address] [place] [address] Chign Butst LPN Alpha-1 Antitrypsin Deficiency Social History Tobacco Use Types Packs/Day Years [...] on file Legal Sex Female 12:50 AM GRADING 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 Contacted patient by phone and given providers response. ING MACHINE FEEDER documented in this encounter Plan of Treatment Not on file documented as of this encounter Visit Diagnoses Not on filedocumented in this encounter Care Teams Form Maker Plaster Relationship Specialty Start Date End Date Brandon Dumont MD PCP - General 03/26/21 Abisai Moss MD Consulting Physician General Surgery 05/14/21 Nunu Steen MD Consulting Physician Gastroenterology 05/14/21 documented as of this encounter
--- OUTSIDE RECORDS SUMMARY | 2024-10-27 10:54 | XMS_ITS | Encounter Summary ---
Author Organization [facility] Healthcare Address [address] [place] [address] Care Team Providers Care Flame Hardener Name Role Phone Brandon Dumont MD Primary Care Provider [phone] Abisai Moss MD Unavailable Nunu Steen MD Unavailable [phone] Reason for Referral * Diagnostic Imaging (Routine) - Closed Specialty Diagnoses / Procedures Referred By Contdonald t Referred To Contact Diagnoses RUQ abdominal pain Epigastric pain Postprandial nausea Procedures NM Gastric Emptying Jania See PA [address] [place] [address] DR FRAGOSO [address] [place] [address] Phone: tel: fax: [address] [phone] Referral ID Status Reason Start Date Expiration Date Visits Re quested Visits Authorized [id number] Closed 11/19/2022 12/19/2023 5 5 N LUMBER GRADER Reason for Visit * Diagnostic Imaging (Routine) - Closed Specialty Diagnoses / Procedures Referred By Contdonald t Referred To Contact Diagnoses RUQ abdominal pain Epigastric pain Postprandial nausea Procedures NM Gastric Emptying Jania See PA [address] [place] [address] DR FRAGOSO [address] [place] [address] Phone: tel: fax: [address] [phone] Referral ID Status Reason Start Date Expiration Date Visits Re quested Visits Authorized [id number] Closed 11/19/2022 12/19/2023 5 5 Encounter Details Date Type Department Care Team (Latest Contact Info) Description 12/06/2022 10:01 AM GREEN LUMBER GRADER - 12/06/2022 11:16 AM GREEN LUMBER GRADER Hospital Encounter [facility] [address] [place] [address] RUQ abdominal pain; Epigastric pain; Postprandial nausea Discharge Disposition: Discharge to home or self [...] on file Legal Sex Female 12:50 AM GREEN LUMBER GRADER Gender Identity Not on file Sexual Orientation [...] Read Routine (OP Routine) 12/06/2022 1:52 PM GREEN LUMBER GRADER RUQ abdominal pain Epigastric pain Postprandial nausea documented in this encounter Results * NM Gastric Emptying (12/06/2022 1:52 PM GREEN LUMBER GRADER) Anatomical Region Laterality Modality Body N/A Nuclear Medicine 12/06/2022 2:28 PM GREEN LUMBER GRADER Narrative 12/06/2022 2:29 PM GREEN LUMBER GRADER EXAM DESCRIPTION: ?? NM GASTRIC EMPTYING STUDY [...] PM T: ??12/06/2022 2:29 PM Report ID: [id number] Reading Location: ??[id number] Procedure Note Michael Harris MD - 12/06/2022 [...] Michael Harris M.D. BC: PRITI Report ID: [id number] Reading Location: [id number] Jania [facility] IMG NM PROCEDURES Final Result documented in this encounter Visit Diagnoses Diagnosis RUQ abdominal pain Abdominal pain, right upper quadrant Epigastric pain Abdominal pain, epigastric Postprandial nausea documented in this encounter Administered Medications Inactive Administered Medications - up to 3 most recent administrations Medication Order MAR Action Action Date Dose Rate Site tc-99m sulfur colloid egg 0.53 millicurie 0.53 millicurie, oral, Once in imaging, radiopharmaceutical, Starting on 12/06/22 at 1116 Given 12/06/2022 11:16 AM GREEN LUMBER GRADER 0.53 millicuries documented in this encounter Orders Medications Ordered That Sonu ht Not Have Been Administered Count Last Ordered Date First Ordered Date tc-99m sulfur colloid egg 0.53 millicurie 1 12/06/2022 documented in this encounter Care Teams Flame Hardener Relationship Specialty Start Date End Date Brandon Dumont MD PCP - General 03/26/21 Abisai Moss MD Consulting Physician General Surgery 05/14/21 Nunu Steen MD Consulting Physician Gastroenterology 05/14/21 documented as of this encounter
--- OUTSIDE RECORDS SUMMARY | 2024-10-27 10:54 | XMS_ITS | Encounter Summary ---
Author Organization [facility] Address [address] [place] [address] Phone Care Team Providers Care Waistband Setter Name Role Phone Brandon Dumont MD Primary Care Provider [phone] Abisai Moss MD Unavailable Nunu Steen MD Unavailable [phone] Encounter Details Date Type Department Care Team (Late st Contact Info) Description 07/16/2024 9:20 AM CDT Lab [facility] Infectious Diseases [address] [facility] [address] [place] [address] Social History Tobacco Use Types Packs/Day Years [...] often do you attend chur ch or alevism services? 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
--- OUTSIDE RECORDS SUMMARY | 2024-10-27 10:54 | XMS_ITS | Encounter Summary ---
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 Gender Identity Not on file Sexual Orientation Not on file documented as of this encounter Ordered Prescriptions Prescription Sig Dispense Quantity Refills Last Filled Start Date End Date colestipoL (COLESTID) 1 gram tablet Take 1 tablet (1 g total) by mouth 2 (two) times a day as needed (diarrhea) 180 tablet 11/28/2023 documented in this encounter Miscellaneous Notes * Addendum Note - Maged Patel PA - 11/28/2023 8:55 AM CSTAddended by: MAGED PATEL on: 11/28/2023 08:55 AM Modules accepted: Orders RNMENT RELATIONS ANALYST * Telephone Encounter - Amy Hoffman MA - 11/25/2023 11:41 AM CST Received a fax from [facility] for a refill request on colestipol RNMENT RELATIONS ANALYST documented in this encounter Plan of Treatment Not on file documented as of this encounter Visit Diagnoses Not on filedocumented in this encounter Discontinued Medications Medication Sig Discontinue Reason Start Date End Da te colestipoL (COLESTID) 1 gram tablet Take 1 tablet (1 g total) by mouth 2 (two) times a day as needed (diarrhea) Reorder 10/14/2023 11/28/2023 documented as of this encounter Care Teams Form Builder Helper Relationship Specialty Start Date End Date Brandon Dumont MD PCP - General 03/26/21 Abisai Moss MD Consulting Physician General Surgery 05/14/21 Nunu Steen MD Consulting Physician Gastroenterology 05/14/21 documented as of this encounter
--- OUTSIDE RECORDS SUMMARY | 2024-10-27 10:54 | XMS_ITS | Encounter Summary ---
Author Organization [facility] Healthcare Address [address] [place] [address] Care Team Providers Care Edger Liner Name Role Phone Brandon Dumont MD Primary Care Provider [phone] Abisai Moss MD Unavailable Nunu Steen MD Unavailable Reason for Visit * Diagnostic Imaging (Routine) - Closed Specialty Diagnoses / Procedures Referred By Contac t Referred To Contact Diagnoses RUQ abdominal pain Epigastric pain Postprandial nausea Procedures NM Gastric Emptying Jania See PA [address] [place] [address] [address] Phone: tel: fax: [address] [phone] Referral ID Status Reason Start Date Expiration Date Visits Re quested Visits Authorized [id number] Closed 11/19/2022 12/19/2023 5 5 Encounter Details Date Type Department Care Team (Latest Contact Info) Description 12/06/2022 12:17 PM BOARD MILL SUPERVISOR - 12/06/2022 1:48 PM BOARD MILL SUPERVISOR Hospital Encounter [facility] [address] [place] [address] Discharge Disposition: Discharge to home or self [...] on file Legal Sex Female 12:50 AM BOARD MILL SUPERVISOR Gender Identity Not on file Sexual [...] Read Routine (OP Routine) 12/06/2022 1:52 PM BOARD MILL SUPERVISOR RUQ abdominal pain Epigastric pain Postprandial nausea documented in this encounter Results * NM Gastric Emptying (12/06/2022 1:52 PM BOARD MILL SUPERVISOR) Anatomical Region Laterality Modality Body N/A Nuclear Medicine 12/06/2022 2:28 PM BOARD MILL SUPERVISOR Narrative 12/06/2022 2:29 PM BOARD MILL SUPERVISOR EXAM DESCRIPTION: ?? NM GASTRIC EMPTYING STUDY [...] PM T: ??12/06/2022 2:29 PM Report ID: [id number] Reading Location: ??[id number] Procedure Note Michael Harris MD - 12/06/2022 [...] Michael Harris M.D. BC: PRITI Report ID: [id number] Reading Location: [id number] Jania [facility] IMG NM PROCEDURES Final Result documented in this encounter Visit Diagnoses Not on filedocumented in this encounter Care Teams Edger Liner Relationship Specialty Start Date End Date Brandon Dumont MD PCP - General 03/26/21 Abisai Moss MD Consulting Physician General Surgery 05/14/21 Nunu Steen MD Consulting Physician Gastroenterology 05/14/21 documented as of this encounter
--- OUTSIDE RECORDS SUMMARY | 2024-10-27 10:54 | XMS_ITS | Encounter Summary ---
Author Organization [facility] Healthcare Address [address] [place] [address] Care Team Providers Care Administrative Representative Name Role Phone Brandon Dumont MD Primary Care Provider [phone] Abisai Moss MD Unavailable Nunu Steen MD Unavailable [phone] Encounter Details Date Type Department Care Team (Latest Contact Info) Description 04/22/2023 11:35 AM CDT - 04/22/2023 11:59 PM CDT Hospital Encounter [facility] [address] [place] [address] Acute bronchitis, unspecified organism Discharge Disposition: Discharge to home or self [...] on file Legal Sex Female 12:50 AM ADMITTING CLERK Gender Identity Not on file Sexual Orientation [...] (75 mg total) by mouth nightly ondansetron (ZOFRAN) 8 mg tablet Take 1 tablet (8 mg total) by mouth every 8 (eight) hours as needed for nausea or vomiting 90 tablet 04/14/2023 3 azithromycin (ZITHROMAX) 250 mg tablet 04/12/2023 3 [...] nightly 30 capsule 2 04/14/2023 3 documented as of this encounter Discharge Disposition Disposition Code Departure Means Destination Discharge to home or self care documented in this encounter Plan of Treatment Not on file documented as of this encounter Procedures Procedure Name Priority Date/Time Associated Diagnosis Comments XR CHEST PA LATERAL 2 VIEWS Schedule Routine, Read Routine (OP Routine) 04/22/2023 11:46 AM CDT Acute bronchitis, unspecified organism documented in this encounter Results * XR Chest PA Lateral 2 Views (04/22/2023 11:46 AM CDT) Anatomical Region Laterality Modality Body, Chest N/A Computed Radiogr aphy 04/23/2023 2:14 PM CDT Narrative 04/23/2023 2:14 PM CDT EXAM DESCRIPTION: XR CHEST PA LATERAL 2 VIEWS REASON FOR STUDY: ?? Complaints of cough/congestion x 2-3 weeks. ?? Former smoker. ?? Hx of HTN, controlled. ?? No prior injuries/surgery to heart/lungs. ? TECHNIQUE: 2 ??radiographic view(s) of the chest. COMPARISON: 05/13/2021 FINDINGS: LUNGS: ??No focal opacity, pleural effusion, or pneumothorax. ?? Emphysema. HEART/MEDIASTINUM: ??Cardiac silhouette normal in size. Mediastinal and hilar contours appear normal. LINES/TUBES: ??None. BONES: ??No acute osseous abnormality. IMPRESSION: Emphysema. No active pulmonary disease. THIS IS AN ELECTRONICALLY VERIFIED FINAL REPORT 04/23/2023 2:14 PM - Electronically signed by ??Joshua Bravo M.D. KT: JEYSON D: ??04/23/2023 2:14 PM T: ??04/23/2023 2:14 PM Report ID: [id number] Reading Location: ??[id number] Procedure Note Joshua Bravo MD - 04/23/2023 EXAM DESCRIPTION: XR CHEST PA LATERAL 2 VIEWS REASON FOR STUDY: Complaints of cough/congestion x 2-3 weeks. Former smoker. Hx of HTN, controlled. No prior injuries/surgery to heart/lungs. TECHNIQUE: 2 radiographic view(s) of the chest. COMPARISON: 05/13/2021 FINDINGS: LUNGS: No focal opacity, pleural effusion, or pneumothorax. Emphysema. HEART/MEDIASTINUM: Cardiac silhouette normal in size. Mediastinal andhilar contours appear normal. LINES/TUBES: None. BONES: No acute osseous abnormality. IMPRESSION: Emphysema. No active pulmonary disease. THIS IS AN ELECTRONICALLY VERIFIED FINAL REPORT 04/23/2023 2:14 PM - Electronically signed by Joshua Bravo M.D. KT: JEYSON Report ID: [id number] Reading Location: [id number] Jenae Ana Rodgers DO IMG XR PROCEDURES Fin al Result documented in this encounter Visit Diagnoses Diagnosis Acute bronchitis, unspecified organism documented in this encounter Care Teams Administrative Representative Relationship Specialty Start Date End Date Brandon Dumont MD PCP - General 03/26/21 Abisai Moss MD Consulting Physician General Surgery 05/14/21 Nunu Steen MD Consulting Physician Gastroenterology 05/14/21 documented as of this encounter
--- OUTSIDE RECORDS SUMMARY | 2024-10-27 10:54 | XMS_ITS | Encounter Summary ---
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 Gender Identity Not on file Sexual Orientation Not on file documented as of this encounter Plan of Treatment Not on file documented as of this encounter Procedures Procedure Name Priority Date/Time Associated Diagnosis Comments CREATININE, WHOLE BLOOD STAT 03/29/2023 6:55 AM CDT documented in this encounter Results * Creatinine, whole blood (03/29/2023 6:55 AM CDT) Creatinine, bld 1.30 0.60 - 1.30 mg/dL [facility] ([facility]) Blood 03/29/2023 6:55 AM CDT 03/29/2023 7:04 AM CDT us Nunu Steen MD LAB BLOOD ORDERABLES Final Result LENK[facility]STYN KEN[facility] ([place]) [facility] Department [place] [address] documented in this encounter Visit Diagnoses Not on filedocumented in this encounter Care Teams Dust Operator Relationship Specialty Start Date End Date Brandon Dumont MD PCP - General 03/26/21 Abisai Moss MD Consulting Physician General Surgery 05/14/21 Nunu Steen MD Consulting Physician Gastroenterology 05/14/21 documented as of this encounter
--- OUTSIDE RECORDS SUMMARY | 2024-10-27 10:54 | XMS_ITS | Encounter Summary ---
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 Patient was provided the number to ENT lupe to schedule. UGATOR HELPER * Telephone Encounter - Ginna Diaz MA - 12/06/2022 4:29 PM CST ----- Message from VENESSA Chen sent at 12/06/2022 4:01 PM CORRUGATOR HELPER ----- Please call patient and let her know her gastric emptying study was normal! She should follow-up with ENT as recommended per Dr. Steen. Thanks! UGATOR HELPER documented in this encounter Plan of Treatment Not on file documented as of this encounter Visit Diagnoses Not on filedocumented in this encounter Care Teams Roof Bolter Helper Relationship Specialty Start Date End Date Brandon Dumont MD PCP - General 03/26/21 Abisai Moss MD Consulting Physician General Surgery 05/14/21 Nunu Steen MD Consulting Physician Gastroenterology 05/14/21 documented as of this encounter
--- OUTSIDE RECORDS SUMMARY | 2024-10-27 10:54 | XMS_ITS | Encounter Summary ---
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 Gender Identity Not on file Sexual Orientation [...] day as needed (diarrhea) 180 tablet 11/28/2023 cyclobenzaprine (FLEXERIL) 10 mg tablet Take 1 [...] (25 mg total) by mouth daily 10/08/2022 methylPREDNISolon e (Medrol, Talon,) 4 mg Dosepack follow package directions 1 packet 10/04/2023 nicotine (NICODERM CQ) 14 mg 10/08/2022 nortriptyline (PAMELOR) 25 mg capsule Take 1 capsule (25 mg total) by mouth nightly 90 capsule 10/14/2023 oxybutynin (DITROPAN) 5 mg tablet 04/16/2021 tapentadol ER (NUCYNTA ER) 100 mg 12 hr tablet Take 1 tablet (100 mg total) by mouth 2 times daily 01/26/2017 umeclidinium-anita nteroL (Anoro Ellipta) 62.5-25 mcg/actuation blister with device Inhale 1 puff daily 90 each 3 01/19/2024 5 venlafaxine (EFFEXOR) 75 mg tablet Take 1 tablet (75 mg total) by mouth nightly benzonatate (TESSALON) 200 mg capsuleIndication s:Cough Take 1 capsule (200 mg total) by mouth 3 (three) times a day as needed for cough 30 capsule 05/19/2022 4 documented as of this encounter Discharge Disposition Disposition Code Departure Means Destination Discharge to home or self care documented in this encounter Plan of Treatment Not on file documented as of this encounter Procedures Procedure Name Priority Date/Time Associated Diagnosis Comments XR CHEST PA LATERAL 2 VIEWS Schedule JADA, Read JADA (Appt Today, Awaiting Results) 03/01/2024 5:05 PM CDT Shortness of breath documented in this encounter Results * XR Chest PA Lateral 2 Views (03/01/2024 5:05 PM CDT) Anatomical Region Laterality Modality Body, Chest N/A Computed Radiogr aphy 03/01/2024 5:59 PM CDT Narrative 03/01/2024 6:50 PM CDT EXAM DESCRIPTION: XR CHEST PA LATERAL 2 VIEWS REASON FOR STUDY: shortness of breath ?? SOB started yesterday , today has sneezing and coughing ??Current smoker ?? TECHNIQUE: PA and lateral ??radiographic view(s) of the chest. COMPARISON: Comparison 04/22/2023. FINDINGS: LUNGS: ??No focal opacity, pleural effusion, or pneumothorax. ??Severe pulmonary emphysema with increasing eventration of hemidiaphragms. ?? HEART/MEDIASTINUM: ??Cardiac silhouette normal in size. Mediastinal and hilar contours appear normal. LINES/TUBES: ??None. BONES: ??No acute osseous abnormality. IMPRESSION: No acute cardiopulmonary abnormality. Severe pulmonary emphysema. THIS IS AN ELECTRONICALLY VERIFIED FINAL REPORT 03/01/2024 6:50 PM - Electronically signed by ??Toma Carey M.D. LC: RINKU D: ??03/01/2024 6:50 PM T: ??03/01/2024 6:50 PM Report ID: [id number] Reading Location: ??[id number] Procedure Note Veronica Carey MD - 03/01/2024 EXAM DESCRIPTION: XR CHEST PA LATERAL 2 VIEWS REASON FOR STUDY: shortness of breath SOB started yesterday , today has sneezing and coughing Current smoker TECHNIQUE: PA and lateral radiographic view(s) of the chest. COMPARISON: Comparison 04/22/2023. FINDINGS: LUNGS: No focal opacity, pleural effusion, or pneumothorax. Severepulmonary emphysema with increasing eventration of hemidiaphragms. HEART/MEDIASTINUM: Cardiac silhouette normal in size. Mediastinal andhilar contours appear normal. LINES/TUBES: None. BONES: No acute osseous abnormality. IMPRESSION: No acute cardiopulmonary abnormality. Severe pulmonary emphysema. THIS IS AN ELECTRONICALLY VERIFIED FINAL REPORT 03/01/2024 6:50 PM - Electronically signed by Toma Carey M.D. LC: RINKU Report ID: [id number] Reading Location: [id number] Adilson Salgado MD IMG XR PROCEDURES Final Result documented in this encounter Visit Diagnoses Diagnosis Shortness of breath documented in this encounter Care Teams Prover Relationship Specialty Start Date End Date Brandon Dumont MD PCP - General 03/26/21 Abisai Moss MD Consulting Physician General Surgery 05/14/21 Nunu Steen MD Consulting Physician Gastroenterology 05/14/21 documented as of this encounter
--- OUTSIDE RECORDS SUMMARY | 2024-10-27 10:54 | XMS_ITS | Encounter Summary ---
Author Organization [facility] Healthcare Address [address] [place] [address] Care Team Providers Care Box Closing Machine Operator Name Role Phone Brandon Dumont MD Primary Care Provider [phone] Abisai Moss MD Unavailable Nunu Steen MD Unavailable [phone] Reason for Visit * Reason Comments 9m follow up Encounter Details Date Type Department Care Team (Late st Contact Info) Description 10/04/2023 1:30 PM THERAPEUTIC CONSULTANT Office Visit [facility] Pulmonary at [address] [place] [phone] Mike Sims MD [address] [place] [address] COPD exacerbation (HCC) (Primary Dx); Nicotine dependence, cigarettes, uncomplicated Social History Tobacco Use Types Packs/Day Years [...] on file Legal Sex Female 12:50 AM THERAPEUTIC CONSULTANT Gender Identity Not on file Sexual Orientation Not on file documented as of this encounter Last Filed Vital Signs Vital Sign Reading Time Taken Comments Blood Pressure 124/54 10/04/2023 1:34 PM THERAPEUTIC CONSULTANT Pulse 94 10/04/2023 1:34 PM THERAPEUTIC CONSULTANT Temperature 36.7 ??C (98.1 ??F) 10/04/2023 1:34 PM CS T Respiratory Rate - - Oxygen Saturation 94% 10/04/2023 1:34 PM THERAPEUTIC CONSULTANT Inhaled Oxygen Concentration - - Weight 60.8 kg (134 lb) 10/04/2023 1:34 PM THERAPEUTIC CONSULTANT Height 165.1 cm (5' 5 ) 10/04/2023 1:34 PM THERAPEUTIC CONSULTANT Body Mass Index 22.3 10/04/2023 1:34 PM THERAPEUTIC CONSULTANT documented in this encounter Ordered Prescriptions Prescription Sig Dispense Quantity Refills Last Filled Start Date End Date methylPREDNISolone (Medrol, Talon,) 4 mg Dosepack follow package directions 1 packet 10/04/2023 azithromycin (ZITHROMAX) 250 mg tablet Take 2 by mouth today then 1 daily for 4 days 6 tablet 10/04/2023 3 documented in this encounter Progress Notes * Mike Sims MD - 10/04/2023 1:30 PM CST Images from the original note were not included. PULMONARY CLINIC NOTE Visit Date: 10/04/2023 Chief Complaint: Presents today for dyspnea HPI: Joselyn Amado is a 62 y.o. female w/ PMH of tobacco use and laparoscopic cholecystectomy for cholelithiasis who presents on 10/04/2023 for evaluation of dyspnea The patient was first seen in October and at that time she reports she underwent laparoscopic cholecystectomy in May of 2021. She was having RUQ pain at the time but it has subsequently resolved Interval History: The patient reports shortness of breath that started during the summer time. Previously had no respiratory issues. She reports having an episode of bronchitis in July. She has been using her nebuzlier for wheezing worse at night. Her rescue therapy provides only temporary relief. She has quit smoking, but is currently vaping with nicotine fluid of 3% Exposure History: No relevant exposures Past Medical [...] systems is negative. OBJECTIVE: Physical Exam: Vitals: 10/04/23 1334 BP: 124/54 BP Location: Right arm Patient Position: Sitting Pulse: 94 Temp: 36.7 ??C (98.1 ??F) TempSrc: Temporal SpO2: 94% Weight: 60.8 kg (134 lb) Height: 165.1 cm (5' 5 ) General: [...] erythrocytosis. Prior intermittent peripheral eosinophilia is noted Pulmonary Functions Testing Results: None to review ASSESSMENT AND PLAN 1. COPD exacerbation (HCC) - the patient seemingly developed symptoms of COPD with recurrent exacerbations - I will start her on maintenance therapy with Anoro - I will treat her for an acute exacerbation today with steroids and a Z-Talon - alpha-1 antitrypsin testing was performed with buccal swab today - pulmonary function testing in 4-6 weeks after recovery from her exacerbation 2. Nicotine dependence, cigarettes, uncomplicated - the patient has quit cigarettes but has turned to vaping - we discussed reducing nicotine content and ultimately weaning off vaping - unclear if her worsening symptoms are related to this switch, will treat empirically for COPD exacerbation as above - the patient was symptomatic at the time of her CT scan in July and there was no evidence of eosinophilic pneumonia, pneumonitis or any other acute lung injury potentially related to vaping - will continue with annual lung cancer screening Mike Sims MD There may be syntax/grammatical errors in this note due to the use of voice recognition software. APEUTIC CONSULTANT documented in this encounter Plan of Treatment Not on file documented as of this encounter Visit Diagnoses Diagnosis COPD exacerbation (HCC)- Primary Obstructive chronic bronchitis with exacerbation Nicotine dependence, cigarettes, uncomplicated documented in this encounter Discontinued Medications Medication Sig Discontinue Reason Start Date End Da te azithromycin (ZITHROMAX) 250 mg tablet Therapy completed 023 10/04/2023 documented as of this encounter Care Teams Box Closing Machine Operator Relationship Specialty Start Date End Date Brandon Dumont MD PCP - General 03/26/21 Abisai Moss MD Consulting Physician General Surgery 05/14/21 Nunu Steen MD Consulting Physician Gastroenterology 05/14/21 documented as of this encounter
--- OUTSIDE RECORDS SUMMARY | 2024-10-27 10:54 | XMS_ITS | Encounter Summary ---
Author Organization [facility] Healthcare Address [address] [place] [address] Care Team Providers Care Flight Security Specialist Name Role Phone Brandon Dumont MD Primary Care Provider [phone] Abisai Moss MD Unavailable Nunu Steen MD Unavailable Reason for Visit * Diagnostic Imaging (Routine) - Closed Specialty Diagnoses / Procedures Referred By Contac t Referred To Contact Diagnoses RUQ abdominal pain Epigastric pain Postprandial nausea Procedures NM Gastric Emptying Jania See PA [address] [place] [address] [address] Phone: tel: fax: [address] [address] Referral ID Status Reason Start Date Expiration Date Visits Re quested Visits Authorized [id number] Closed 11/19/2022 12/19/2023 5 5 Encounter Details Date Type Department Care Team (Latest Contact Info) Description 12/06/2022 1:49 PM CAREGIVER SERVICES HOME - 12/06/2022 11:59 PM CAREGIVER SERVICES HOME Hospital Encounter [facility] [address] [place] [address] Discharge Disposition: Discharge to home or self [...] on file Legal Sex Female 12:50 AM CAREGIVER SERVICES HOME Gender Identity Not on file Sexual Orientation [...] Read Routine (OP Routine) 12/06/2022 1:52 PM CAREGIVER SERVICES HOME RUQ abdominal pain Epigastric pain Postprandial nausea documented in this encounter Results * NM Gastric Emptying (12/06/2022 1:52 PM C[facility]) Anatomical Region Laterality Modality Body N/A Nuclear Medicine 12/06/2022 2:28 PM CAREGIVER SERVICES HOME Narrative 12/06/2022 2:29 PM CAREGIVER SERVICES HOME EXAM DESCRIPTION: ?? NM GASTRIC EMPTYING STUDY [...] PM T: ??12/06/2022 2:29 PM Report ID: [id number] Reading Location: ??[id number] Procedure Note Michael Harris MD - 12/06/2022 [...] Michael Harris M.D. BC: PRITI Report ID: [id number] Reading Location: [id number] Jania CLIFFORD IMG NM PROCEDURES Final Result documented in this encounter Visit Diagnoses Not on filedocumented in this encounter Care Teams Flight Security Specialist Relationship Specialty Start Date End Date Brandon Dumont MD PCP - General 03/26/21 Abisai Moss MD Consulting Physician General Surgery 05/14/21 Nunu Steen MD Consulting Physician Gastroenterology 05/14/21 documented as of this encounter
--- OUTSIDE RECORDS SUMMARY | 2024-10-27 10:54 | XMS_ITS | Encounter Summary ---
Author Organization [facility] Healthcare Address [address] [place] [address] Care Team Providers Care Stock Grader Name Role Phone Brandon Dumont MD Primary Care Provider [phone] Abisai Moss MD Unavailable Nunu Steen MD Unavailable [phone] Reason for Visit * Reason Onset Date Comments Anoro 01/19/2024 Encounter Details Date Type Department Care Team (Late st Contact Info) Description 01/19/2024 Telephone [facility] Group Pulmonary at [address] [place] [address] Ching Butts LPN Anoro Social History Tobacco Use Types [...] on file 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 Gender Identity Not on file Sexual Orientation Not on file documented as of this encounter Ordered Prescriptions Prescription Sig Dispense Quantity Refills Last Filled Start Date End Date umeclidinium-vilan teroL (Anoro Ellipta) 62.5-25 mcg/actuation blister with device Inhale 1 puff daily 90 each 3 01/19/2024 01/18/2025 documented in this encounter Miscellaneous Notes * Addendum Note - Laney Griffin NP - 01/19/2024 12:00 PM CDTAddended by: LANEY GRIFFIN on: 01/19/2024 12:00 PM Modules accepted: Orders * Telephone Encounter - Laney Griffin NP - 01/19/2024 11:58 AM CDT RX sent to [facility] for 3 months x 3 refills * Telephone Encounter - Ching Butts LPN - 01/19/2024 11:24 AM CDT Patient called the office and said that she found out that her ins is covering Anoro. Patient requesting our office to send prescription to [facility]. Patient said that she is okay if provider would like to send a 3mth supply. Patient said that she didn't want to use the Stiolto. She said that the Stiolto is too difficult for her to use and is more firm with it. documented in this encounter Plan of Treatment Not on file documented as of this encounter Visit Diagnoses Not on filedocumented in this encounter Care Teams Stock Grader Relationship Specialty Start Date End Date Brandon Dumont MD PCP - General 03/26/21 Abisai Moss MD Consulting Physician General Surgery 05/14/21 Nunu Steen MD Consulting Physician Gastroenterology 05/14/21 documented as of this encounter
--- OUTSIDE RECORDS SUMMARY | 2024-10-27 10:54 | XMS_ITS | Encounter Summary ---
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 Gender Identity Not on file Sexual Orientation Not on file documented as of this encounter Miscellaneous Notes * Telephone Encounter - Jenae Lam RT - 07/11/2023 12:54 PM CDT Confirmed appt documented in this encounter Plan of Treatment Not on file documented as of this encounter Visit Diagnoses Not on filedocumented in this encounter Care Teams Philatelic Consultant Relationship Specialty Start Date End Date Brandon Dumont MD PCP - General 03/26/21 Abisai Moss MD Consulting Physician General Surgery 05/14/21 Nunu Steen MD Consulting Physician Gastroenterology 05/14/21 documented as of this encounter
--- OUTSIDE RECORDS SUMMARY | 2024-10-27 10:54 | XMS_ITS | Encounter Summary ---
Author Organization [facility] Healthcare Address [address] [place] [address] Care Team Providers Care Provider Network Mgr Name Role Phone Brandon Dumont MD Primary Care Provider [phone] Abisai Moss MD Unavailable Nunu Steen MD Unavailable [phone] Reason for Visit * Diagnostic Imaging (Routine) - Closed Specialty Diagnoses / Procedures Referred By Contac t Referred To Contact Diagnoses RUQ abdominal pain Epigastric pain Postprandial nausea Procedures NM Gastric Emptying Jania See PA [address] [place] [address] [address] Phone: tel: fax: [address] [phone] Referral ID Status Reason Start Date Expiration Date Visits Re quested Visits Authorized [id number] Closed 11/19/2022 12/19/2023 5 5 Encounter Details Date Type Department Care Team (Latest Contact Info) Description 12/06/2022 11:17 AM HAND MARKER - 12/06/2022 12:16 PM HAND MARKER Hospital Encounter [facility] [address] [place] [address] Discharge Disposition: Discharge to home or self [...] on file Legal Sex Female 12:50 AM HAND MARKER Gender Identity Not on file Sexual Orientation [...] Read Routine (OP Routine) 12/06/2022 1:52 PM HAND MARKER RUQ abdominal pain Epigastric pain Postprandial nausea documented in this encounter Results * NM Gastric Emptying (12/06/2022 1:52 PM HAND MARKER) Anatomical Region Laterality Modality Body N/A Nuclear Medicine 12/06/2022 2:28 PM HAND MARKER Narrative 12/06/2022 2:29 PM HAND MARKER EXAM DESCRIPTION: ?? NM GASTRIC EMPTYING STUDY [...] PM T: ??12/06/2022 2:29 PM Report ID: [id number] Reading Location: ??[id number] Procedure Note Michael Harris MD - 12/06/2022 [...] Michael Harris M.D. BC: PRITI Report ID: [id number] Reading Location: [id number] Jania [facility] IMG NM PROCEDURES Final Result documented in this encounter Visit Diagnoses Not on filedocumented in this encounter Care Teams Provider Network Mgr Relationship Specialty Start Date End Date Brandon Dumont MD PCP - General 03/26/21 Abisai Moss MD Consulting Physician General Surgery 05/14/21 Nunu Steen MD Consulting Physician Gastroenterology 05/14/21 documented as of this encounter
--- OUTSIDE RECORDS SUMMARY | 2024-10-27 10:55 | XMS_ITS | Encounter Summary ---
Author Organization [facility] Address [address] [facility] [address] [place] [address] Care Team Providers Care Fire Inspector Name Role Phone Brandon Dumont MD Primary Care Provider [phone] Abisai Moss MD Unavailable Nunu Steen MD Unavailable [phone] Encounter Details Date Type Department Care Team (Late st Contact Info) Description 07/09/2022 Telephone [facility] Gastroenterology at [place] [address] [facility] [address] [place] [address] Jania See PA [address] [place] [address] [address] [place], [place] [id number] Social History Tobacco Use Types Packs/Day Years Used Date Smoking Tobacco: Former Cigarettes Smokeless Tobacco: Never Comments:quit 2019 Alcohol Use Standard Drinks/Week Comments Not Currently 0 (1 standard drink = 0.6 oz pur e alcohol) Comments No Sex and Gender Information Value Date Recorded Sex Assigned at Not on file 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 documented in this encounter Plan of Treatment Not on file documented as of this encounter Visit Diagnoses Not on filedocumented in this encounter Additional Health Concerns Infection Onset Date Last Indicated Resolved Time COVID: Recovered Comment:Added based on recent COVID infection. 05/29/2022 06/07/2022 09/26/2022 3:[address] documented as of this encounter Care Teams Fire Inspector Relationship Specialty Start Date End Date Brandon Dumont MD PCP - General 03/26/21 Abisai Moss MD Consulting Physician General Surgery 05/14/21 Nunu Steen MD Consulting Physician Gastroenterology 05/14/21 documented as of this encounter
--- OUTSIDE RECORDS SUMMARY | 2024-10-27 10:55 | XMS_ITS | Encounter Summary ---
Author Organization [facility] Address [address] [facility] [place] [address] [place] [address] Care Team Providers Care Potato Bucker Name Role Phone Brandon Dumont MD Primary Care Provider [phone] Abisai Moss MD Unavailable Nunu Steen MD Unavailable [phone] Reason for Referral * MRI/CAT/PET Scan (Routine) - Closed Specialty Diagnoses / Procedures Referred By Naye alanis Referred To Contact Radiology Diagnoses Nicotine dependence, cigarettes, uncomplicated Procedures CT Lung Cancer Screening Mike Sims MD Phone: tel: fax: [address] [phone] Referral ID Status Reason Start Date Expiration Date Visits Re quested Visits Authorized [id number] Closed 10/14/2022 11/13/2023 1 1 CRIPTION BENEFIT SPECIALIST Reason for Visit * Reason Comments Lung Nodule COVID 05/2022 * Consultation (Routine) - Closed Specialty Diagnoses / Procedures Referred By Naye alanis Referred To Contact Pulmonary Disease / Pulmonology Diagnoses Multiple lung nodules on CT Jania See PA [address] [place] [address] Phone: tel: fax: Mike Sims MD Phone: tel: fax: Referral ID Status Reason Start Date Expiration Date V isits Requested Visits Authorized [id number] Closed Specialty Services Required 09/14/2022 10/14/2023 1 1 Encounter Details Date Type Department Care Team (Late st Contact Info) Description 10/14/2022 11:15 AM PRESCRIPTION BENEFIT SPECIALIST Office Visit [facility] Pulmonary at [address] [place] [id number] Mike Sims MD [address] [place] [address] [address] [place] [address] Pleuritis (Primary Dx); Centrilobular emphysema (CMS/HCC) (HCC); Nicotine dependence, cigarettes, uncomplicated Social History Tobacco Use Types Packs/Day Years Used Date Smoking Tobacco: Former Cigarettes 0.8 40 Smokeless Tobacco: Never Tobacco Cessation:Counseling Given: Not Answered Comments:quit 2020 ARestarted 2 mo ago after daughter . Currently on 14mg patches Alcohol Use Standard Drinks/Week Comments Not Currently 0 (1 standard drink = 0.6 oz pur e alcohol) Comments No Sex and Gender Information Value Date Recorded Sex Assigned at Not on file Legal Sex Female 12:50 AM PRESCRIPTION BENEFIT SPECIALIST Gender Identity Not on file Sexual Orientation Not on file documented as of this encounter Last Filed Vital Signs Vital Sign Reading Time Taken Comments Blood Pressure 160/70 10/14/2022 11:30 AM PRESCRIPTION BENEFIT SPECIALIST Pulse 90 10/14/2022 11:30 AM PRESCRIPTION BENEFIT SPECIALIST Temperature 35.7 ??C (96.2 ??F) 10/14/2022 1 1:30 AM PRESCRIPTION BENEFIT SPECIALIST Respiratory Rate 16 10/14/2022 11:3 0 AM PRESCRIPTION BENEFIT SPECIALIST Oxygen Saturation 97% 10/14/2022 11: 30 AM PRESCRIPTION BENEFIT SPECIALIST Inhaled Oxygen Concentration - - Weight 59.4 kg (130 lb 14.4 oz) 022 11:30 AM PRESCRIPTION BENEFIT SPECIALIST Height 165.1 cm (5' 5 ) 10/14/2022 11:3 0 AM PRESCRIPTION BENEFIT SPECIALIST Body Mass Index 21.78 10/14/2022 11:30 AM PRESCRIPTION BENEFIT SPECIALIST documented in this encounter Ordered Prescriptions Prescription Sig Dispense Quantity Refills Last Filled Start Date End Date methylPREDNISolone (Medrol, Talon,) 4 mg Dosepack follow package directions 1 packet 10/14/2022 3 documented in this encounter Progress Notes * Mike Sims MD - 10/14/2022 11:15 AM CST Images from the original note were not included. PULMONARY CLINIC NOTE Visit Date: 10/14/2022 Chief Complaint: Presents today for Right upper quadrant pain HPI: Joselyn Amado is a 61 y.o. female w/ PMH of tobacco use and laparoscopic cholecystectomy for cholelithiasis who presents on 10/14/2022 for evaluation of right upper quadrant and pleuritic pain. the patient reports she underwent laparoscopic cholecystectomy in May of 2021. She is still havingRUQ pain along the costal margin at time. She reports having covid in May of 2022. Her symptoms were mild at the time primarily with nasal congestion, rhinorrhea and sore throat without any fever orcough. At that time she began having pleurisy as well Interval History: She reports the pleuritic chest pain is in the right flank and posteriorly. It did resolve in the interval but it has recurred. She notices this whenever she has a viral infection. She currently feels that she has a URI and the pain has returned. She denies any fevers, chills, weight loss. She denies any significantly limiting dyspnea. She does not report any significant cough, sputum or wheezing Exposure History: No relevant exposures Past Medical History: Past Medical History: Diagnosis Date Bladder spasms Chronic pain 2020 Gall stones Hot flashes Hypertension Family History: Family History Problem Relation [...] systems is negative. OBJECTIVE: Physical Exam: Vitals: 10/14/22 1130 BP: 160/70 BP Location: Left arm Patient Position: Sitting Pulse: 90 Resp: 16 Temp: (!) 35.7 ??C (96.2 ??F) TempSrc: Temporal SpO2: 97% Weight: 59.4 kg (130 lb 14.4 oz) Height: 165.1 cm (5' 5 ) General: appears comfortable in no apparent distress Eyes: anicteric, no redness or drainage, EOMI Neck: no thyromegaly or lymphadenopathy Cardiovascular: regular rate and rhythm, no murmurs, no edema or JVD Respiratory: clear to auscultation bilaterally, non labored Gastrointestinal: abdomen is soft and non-tender, + bowel sounds Musculoskeletal: no joint swelling or tenderness Neurologic: No focal deficits Skin: warm and dry Data Review: CT chest abdomen pelvis 07/08/2022: Personally reviewed [...] review ASSESSMENT AND PLAN 1. Centrilobular emphysema (CMS/HCC) (HCC) - noted on imaging - the patient does not currently have any symptoms and does not warrant pulmonary function testing - Ambulatory referral to Pulmonology 2. Nicotine dependence, cigarettes, uncomplicated - smoking cessation was discussed for greater than 5 minutes, the patient is currently using nicotine replacement therapy - I encouraged her to reach out to the quit hotline - we also discussed the risks and benefits of low-dose CT scan for lung cancer screening including incidental findings, the need for repeat scans and possible procedures - CT Lung Cancer Screening; Future 3. Pleuritis - the patient describes recurrent pleuritis that occurs whenever she has a viral infection - I believe this is likely self-limited and there is no evidence of any concerning finding on her most recent CT scan - she was given a script for a ObsEva Dosepak to help with the pain Mike Sims MD There may be syntax/grammatical errors in this note due to the use of voice recognition software. CRIPTION BENEFIT SPECIALIST documented in this encounter Plan of Treatment Not on file documented as of this encounter Results * CT Lung Cancer [...] AM T: ??07/14/2023 8:33 AM Report ID: [id number] Reading Location: ??[id number] Procedure Note Martin Murray MD - 07/14/2023 [...] Martin Plasencia M.D. RL: CLAY Report ID: [id number] Reading Location: [place] [address] Mike Sims MD IMG CT PROCEDURES Final Result documented in this encounter Visit Diagnoses Diagnosis Pleuritis- Primary Pleurisy without mention of effusion or current tuberculosis Centrilobular emphysema (HCC) Nicotine dependence, cigarettes, uncomplicated Nicotine dependence, cigarettes, uncomplicated documented in this encounter Historical Medications * This list may reflect changes made after this encounter. Medication Sig Dispense Quantity Refills Last Filled Start D ate End Date nicotine (NICODERM CQ) 14 mg 10/08/2022 added in this encounter Orders Outpatient Referral Count Last Ordered Date Fir st Ordered Date AMB REFERRAL TO PULMONOLOGY 1 10/14/2022 documented in this encounter Care Teams Potato Bucker Relationship Specialty Start Date End Date Brandon Dumont MD PCP - General 03/26/21 Abisai Moss MD Consulting Physician General Surgery 05/14/21 Nunu Steen MD Consulting Physician Gastroenterology 05/14/21 documented as of this encounter
--- OUTSIDE RECORDS SUMMARY | 2024-10-27 10:55 | XMS_ITS | Encounter Summary ---
Author Organization [facility] Healthcare Address [address] [place] [address] Care Team Providers Care Director Rehabilitation Program Name Role Phone Brandon Dumont MD Primary Care Provider [phone] Abisai Moss MD Unavailable Nunu Steen MD Unavailable [phone] Encounter Details Date Type Department Care Team (Late st Contact Info) Description 07/09/2022 4:55 PM CDT [facility] [address] [place] [address] Nunu Steen MD [address] [place] [address] [address] FR[address]O [address] [place] [address] Jania See PA [address] [place] [address] [address] [place] [address] Pancreatic cyst Discharge Disposition: Discharge to home [...] on file 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 Gender Identity Not on file Sexual Orientation Not on file documented as of this encounter Discharge Disposition Disposition Code Departure Means Destination Discharge to home or self care documented in this encounter Plan of Treatment Not on file documented as of this encounter Procedures Procedure Name Priority Date/Time Associated Diagnosis Comments CANCER ANTIGEN 19-9 Routine 07/09/2022 4 :57 PM CDT Pancreatic cyst documented in this encounter Results * Cancer antigen 19-9 (07/09/2022 4:57 PM CDT) CA 19-9 ag <1.0 1.0 - 35.0 units/mL [facility]QU[facility]LE [facility]NEY ([facility]ST[facility]) Comment: Interpretive Data The Mandeep CA 19-9 assay procedure was used. Results from different manufacturers or methods may not be comparable. Serial testing should be performed using the same method. Testing performed by: [facility], [address] [place] [address], [place]., [address] Blood 07/09/2022 4:57 PM CDT 07/10/2022 2:06 PM CDT us Jania [facility] LAB BLOOD ORDERABLES Fin al Result SHAQUILLE [facility] ([place]) [address] [facility] [place] [address] documented in this encounter Visit Diagnoses Diagnosis Pancreatic cyst Cyst and pseudocyst of pancreas documented in this encounter Additional Health Concerns Infection Onset Date Last Indicated Resolved Time COVID: Recovered Comment:Added based on recent COVID infection. 05/29/2022 06/07/2022 09/26/2022 3:[address] documented as of this encounter Care Teams Director Rehabilitation Program Relationship Specialty Start Date End Date Brandon Dumont MD PCP - General 03/26/21 Abisai Moss MD Consulting Physician General Surgery 05/14/21 Nunu Steen MD Consulting Physician Gastroenterology 05/14/21 documented as of this encounter
--- OUTSIDE RECORDS SUMMARY | 2024-10-27 10:55 | XMS_ITS | Encounter Summary ---
Author Organization [facility] Address [address] [place] [address] Care Team Providers Care Trailhead Maintenance Worker Name Role Phone Brandon Dumont MD Primary Care Provider [phone] Abisai Moss MD Unavailable Nunu Steen MD Unavailable [phone] Reason for Referral * MRI/CAT/PET Scan (Routine) - Closed Specialty Diagnoses / Procedures Referred By Contac t Referred To Contact Radiology Diagnoses Pancreatic cyst Procedures MRI/MRCP (abdomen) W WO CONTRAST Jania See PA [address] [place] [address] [address] [place] [address] Phone: tel: fax: [address] [phone] Referral ID Status Reason Start Date Expiration Date Visits Re quested Visits Authorized [id number] Closed 07/13/2022 08/27/2022 1 1 Encounter Details Date Type Department Care Team (Late st Contact Info) Description 07/09/2022 Orders Only [facility] Medical 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 MRI ABDOMEN MRCP W WO CONTRAST REASON FOR STUDY: ?? Pancreatic cyst, pancreatic cyst ?? F/u Two 2-3 mm cystic lesions are seen in the pancreatic head from CT done 07/08/22 ?? TECHNIQUE: MRI of the abdomen performed ?? without ??intravenous contrast according to the MRCP protocol. ??3D images rendered on scanning unit and reviewed at time of interpretation. ?? All images stored on PACS. COMPARISON: ?? CT examinations dated 07/08/2022 and 05/10/2021. FINDINGS: ABDOMEN: LOWER CHEST: ?? No effusion. LIVER: ?? The liver is stable in size and configuration with mild elongation of the right hepatic lobe. ??There is no suspicious hepatic lesion. ??The entirety of the liver is not included on postcontrast imaging. GALLBLADDER: ??Surgically absent BILE DUCTS: ?? No intrahepatic or extrahepatic ductal dilatation. ??Common bile duct measures ?? 7 mm . SPLEEN: ?? The spleen is within normal limits in size. ??There is no splenic mass. PANCREAS: ?? The pancreatic duct is normal in caliber. ??There is no peripancreatic inflammatory process or fluid collection. ??There is no appreciable enhancing pancreatic mass. ?? The tiny cystic lesions demonstrated within the head/uncinate process of the pancreas on prior examination are better visualized on prior CT studies. ??This is likely due to thinner slice thickness on those examinations, as opposed to the current study. ??The lesions are best demonstrated on the post contrast portion of the examination and exhibit no appreciable enhancement, each measuring approximately 2-3 mm, stable. ADRENALS: ??Normal. KIDNEYS/URINARY TRACT: ?? No identified significant cystic or solid masses. No cysts. No hydronephrosis. ?? GI: ?? No evidence of obstruction. ??No apparent wall thickening the bowel is suboptimally visualized on this examination. ?? PERITONEUM: ?? No ascites. RETROPERITONEUM: ?? No mass or adenopathy. VASCULATURE: ?? No abdominal aortic aneurysm. MUSCULOSKELETAL: ?? No acute findings. OTHER: ?? There is partial visualization of a known soft tissue lesion within the pelvis. ??See separate CT report. ??This finding is not completely evaluated on this study. IMPRESSION: ?? 1. ?? Tiny cystic lesions demonstrated within the pancreatic head, better appreciated on prior CT examination from 07/08/2022. ??No significant interval change in size. ??Follow-up imaging in 6 months is recommended. ??This could be performed with MRCP alone or with CT given better visualization by that modality. 2. ?? Additional findings as above. THIS IS AN ELECTRONICALLY VERIFIED FINAL REPORT 08/13/2022 7:43 AM - Electronically signed by ??Anika Reyes M.D. TW: BROCK D: ??08/13/2022 7:43 AM T: ??08/13/2022 7:43 AM Report ID: [id number] Reading Location: ??[id number] Procedure Note Anika Reyes MD - 08/13/2022 EXAM DESCRIPTION: MRI ABDOMEN MRCP W WO CONTRAST REASON FOR STUDY: Pancreatic cyst, pancreatic cyst F/u Two 2-3 mm cystic lesions are seen in the pancreatic head from CT done 07/08/22 TECHNIQUE: MRI of the abdomen performed without intravenous contrast according to the MRCP protocol. 3D images rendered on scanning unit and reviewed at time of interpretation. All images stored on PACS. COMPARISON: CT examinations dated 07/08/2022 and 05/10/2021. FINDINGS: ABDOMEN: LOWER CHEST: No effusion. LIVER: The liver is stable in size and configuration with mildelongation of the right hepatic lobe. There is no suspicious hepatic lesion. Theentirety of the liver is not included on postcontrast imaging. GALLBLADDER: Surgically absent BILE DUCTS: No intrahepatic or extrahepatic ductal dilatation. Commonbile duct measures 7 mm . SPLEEN: The spleen is within normal limits in size. There is no splenic mass. PANCREAS: The pancreatic duct is normal in caliber. There is no peripancreatic inflammatory process or fluid collection. There is no appreciable enhancing pancreatic mass. The tiny cystic lesionsdemonstrated within the head/uncinate process of the pancreas on prior examination are better visualized on prior CT studies. This is likely due to thinnerslice thickness on those examinations, as opposed to the current study. Thelesions are best demonstrated on the post contrast portion of the examination and exhibit no appreciable enhancement, each measuring approximately 2-3 mm, stable. ADRENALS: Normal. KIDNEYS/URINARY TRACT: No identified significant cystic or solid masses.No cysts. No hydronephrosis. GI: No evidence of obstruction. No apparent wall thickening the bowelis suboptimally visualized on this examination. PERITONEUM: No ascites. RETROPERITONEUM: No mass or adenopathy. VASCULATURE: No abdominal aortic aneurysm. MUSCULOSKELETAL: No acute findings. OTHER: There is partial visualization of a known soft tissue lesionwithin the pelvis. See separate CT report. This finding is not completelyevaluated on this study. IMPRESSION: 1. Tiny cystic lesions demonstrated within the pancreatic head, better appreciated on prior CT examination from 07/08/2022. No significantinterval change in size. Follow-up imaging in 6 months is recommended. This couldbe performed with MRCP alone or with CT given better visualization by that modality. 2. Additional findings as above. THIS IS AN ELECTRONICALLY VERIFIED FINAL REPORT 08/13/2022 7:43 AM - Electronically signed by Anika Reyes M.D. TW: BROCK Report ID: [id number] Reading Location: [id number] Jania [facility] IMG MRI PROCEDURES Final Result * Cancer antigen 19-9 (07/09/2022 4:57 PM CDT) CA 19-9 ag <1.0 1.0 - 35.0 units/mL SHAQUILLE KENNEY ([place]) Comment: Interpretive Data The Mandeep CA 19-9 assay procedure was used. Results from different manufacturers or methods may not be comparable. Serial testing should be performed using the same method. Testing performed by: [facility], [address] [place] [address], [place]., [address] Blood 07/09/2022 4:57 PM CDT 07/10/2022 2:06 PM CDT Jania [facility] LAB BLOOD ORDERABLES Fin al Result [facility]LE [facility] [place] 1 [facility] Department [place] [address] documented in this encounter Visit Diagnoses Diagnosis Pancreatic cyst- Primary Cyst and pseudocyst of pancreas Pancreatic cyst Cyst and pseudocyst of pancreas documented in this encounter Additional Health Concerns Infection Onset Date Last Indicated Resolved Time COVID: Recovered Comment:Added based on recent COVID infection. 05/29/2022 06/07/2022 09/26/2022 3:[address] documented as of this encounter Care Teams Trailhead Maintenance Worker Relationship Specialty Start Date End Date Brandon Dumont MD PCP - General 03/26/21 Abisai Moss MD Consulting Physician General Surgery 05/14/21 Nunu Steen MD Consulting Physician Gastroenterology 05/14/21 documented as of this encounter
--- OUTSIDE RECORDS SUMMARY | 2024-10-27 10:55 | XMS_ITS | Encounter Summary ---
Author Organization [facility] Address [address] [place] [address] Care Team Providers Care Railway Track Plant Operator Name Role Phone Brandon Dumont MD Primary Care Provider [phone] Abisai Moss MD Unavailable Nunu Steen MD Unavailable [phone] Reason for Visit * Reason Onset Date Comments Covid-19 Home Monitoring 05/22/2022 Enrollm ent green Encounter Details Date Type Department Care Team (Late st Contact Info) Description 05/22/2022 Telephone [facility] Accountable Care Organization [address] [place] [id number] Annie Curtis LPN [address] [place] [address] [address] [place] [address] Covid-19 Home Monitoring (Enrollment green) Social History Tobacco Use Types Packs/Day Years Used Date Smoking Tobacco: Former Cigarettes Smokeless Tobacco: Never Comments:quit 2019 Alcohol Use Standard Drinks/Week Comments Not Currently 0 (1 standard drink = 0.6 oz pur e alcohol) Comments No Sex and Gender Information Value Date Recorded Sex Assigned at Not on file 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 : No This patient has enrolled in the PHONE ONLY version of COVID-19 Home Monitoring Program. COVID-19 Symptom questionnaire was completed today. Symptoms were addressed to be Mild. Escalation was not needed. Next Program Call Due: 05/23 This patient was identified as a candidate for the [facility] COVID home monitoring program. The patient was contacted via phone for enrollment in the program. The patient has declined to participate in the automated MyChart Principal Automation Engineer Program, but has verbally agreed to the Phone Only Home Monitoring Program, which includes being contacted for a daily phone assessment by a [facility] staff member. The patient was informed that members of the healthcare team will contact them depending on the symptoms that they report. This call could come from a variety of phone numbers depending on which member of the healthcare team is contacting the patient, and the patient should be prepared to answer calls from a variety of phone numbers. If the patient is unable to be reached for 3 days, they will be disenrolled from the program. Patient is aware that we will try and reach them at every available phone number, including HIPAA contacts. After review, the patient agreed to participate. The ???COVID19 Home Monitoring?? order was placedto enroll the patient in the phone only version of the program. documented in this encounter Plan of Treatment Not on file documented as of this encounter Visit Diagnoses Not on filedocumented in this encounter Additional Health Concerns Infection Onset Date Last Indicated Resolved Time COVID19 05/19/2022 05/19/2022 05/29/2022 3:05 AM CDT documented as of this encounter Care Teams Railway Track Plant Operator Relationship Specialty Start Date End Date Brandon Dumont MD PCP - General 03/26/21 Abisai Moss MD Consulting Physician General Surgery 05/14/21 Nunu Steen MD Consulting Physician Gastroenterology 05/14/21 documented as of this encounter
--- OUTSIDE RECORDS SUMMARY | 2024-10-27 10:55 | XMS_ITS | Encounter Summary ---
Author Organization [facility] Healthcare Address [address] [place] [address] Care Team Providers Care Autos Disassembler Name Role Phone Brandon Dumont MD Primary Care Provider [phone] Abisai Moss MD Unavailable Nunu Steen MD Unavailable [phone] Encounter Details Date Type Department Care Team (Late st Contact Info) Description 08/12/2022 2:45 PM CDT Lab [address] [address] Social History Tobacco Use Types Packs/Day Years Used Date Smoking Tobacco: Former Cigarettes Smokeless Tobacco: Never Comments:quit 2019 Alcohol Use Standard Drinks/Week Comments Not Currently 0 (1 standard drink = 0.6 oz pur e alcohol) Comments No Sex and Gender Information Value Date Recorded Sex Assigned at Not on file 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 Gender Identity Not on file Sexual Orientation Not on file documented as of this encounter Plan of Treatment Not on file documented as of this encounter Procedures Procedure Name Priority Date/Time Associated Diagnosis Comments CREATININE, WHOLE BLOOD STAT 08/12/2022 2:38 PM CDT documented in this encounter Results * Creatinine, whole blood (08/12/2022 2:38 PM CDT) Creatinine, bld 1.13 0.60 - 1.30 mg/dL [facility] ([place] Blood 08/12/2022 2:38 PM CDT 08/12/2022 2:56 PM CDT us Brandon Dumont MD LAB BLOOD ORDERABLES Final Re sult [facility] ([place]) [address] [facility] [place] [address] documented in this encounter Visit Diagnoses Not on filedocumented in this encounter Additional Health Concerns Infection Onset Date Last Indicated Resolved Time COVID: Recovered Comment:Added based on recent COVID infection. 05/29/2022 06/07/2022 09/26/2022 3:[address] documented as of this encounter Care Teams Autos Disassembler Relationship Specialty Start Date End Date Brandon Dumont MD PCP - General 03/26/21 Abisai Moss MD Consulting Physician General Surgery 05/14/21 Nunu Steen MD Consulting Physician Gastroenterology 05/14/21 documented as of this encounter
--- OUTSIDE RECORDS SUMMARY | 2024-10-27 10:55 | XMS_ITS | Encounter Summary ---
Author Organization [facility] Healthcare Address [address] [place] [address] Care Team Providers Care Sash Sticker Name Role Phone Brandon Dumont MD Primary Care Provider [phone] Abisai Moss MD Unavailable Nunu Steen MD Unavailable [phone] Reason for Referral * MRI/CAT/PET Scan (Routine) - Closed Specialty Diagnoses / Procedures Referred By Naye alanis Referred To Contact Radiology Diagnoses Pancreatic cyst Procedures MRI/MRCP (abdomen) W WO CONTRAST Janai See PA [address] [place] [address] [address] FRAGOSO [address] [place] [address] Phone: tel: fax: [address] [phone] Referral ID Status Reason Start Date Expiration Date Visits Re quested Visits Authorized [id number] Closed 07/13/2022 08/27/2022 1 1 Reason for Visit * MRI/CAT/PET Scan (Routine) - Closed Specialty Diagnoses / Procedures Referred By Naye alanis Referred To Contact Radiology Diagnoses Pancreatic cyst Procedures MRI/MRCP (abdomen) W WO CONTRAST Jania See PA [address] [place] [address] [address] FRAGOSO [address] [place] [address] Phone: tel: fax: [address] [phone] Referral ID Status Reason Start Date Expiration Date Visits Re quested Visits Authorized [id number] Closed 07/13/2022 08/27/2022 1 1 Encounter Details Date Type Department Care Team (Latest Contact Info) Description 08/12/2022 2:39 PM CDT - 08/12/2022 11:59 PM CDT Hospital Encounter [facility] [address] [place] [address] Jania See PA [address] [place] [address] [address] [place] [address] Pancreatic cyst Discharge Disposition: Discharge to home [...] on file 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 Gender Identity Not on file Sexual Orientation Not on file documented as of this encounter Medications at Time of Discharge albuterol HFA (ProAir HFA) 90 mcg/actuation inhalerIndications: Cough Inhale 2 puffs every 4 (four) hours as needed for wheezing or shortness of breath 8.5 g 05/19/2022 cloNIDine (CATAPRES) 0.3 mg tablet Take 1 [...] loratadine 10 mg capsule Take by mouth oxybutynin (DITROPAN) 5 mg tablet 04/16/2021 tapentadol ER (NUCYNTA ER) 100 mg 12 hr tablet Take 1 tablet (100 mg total) by mouth 2 times daily 01/26/2017 venlafaxine (EFFEXOR) 75 mg tablet Take 1 tablet (75 mg total) by mouth nightly benzonatate (TESSALON) 200 mg capsuleIndications: Cough Take 1 capsule (200 mg total) by mouth 3 (three) times a day as needed for cough 30 capsule 05/19/2022 4 colestipoL (COLESTID) 1 gram tablet Take 1 tablet (1 g total) by mouth 2 (two) times a day 60 tablet 2 06/14/2022 2 lidocaine viscous (XYLOCAINE) 2 % solutionIndications :Sore throat due to virus Gargle, swish and swallow/spit 5mL every six hours as needed for discomfort. Do not exceed maximum dose of of 4 times daily. 100 mL 05/19/2022 3 ondansetron ODT (ZOFRAN-ODT) 8 mg disintegrating tablet Take 1 tablet (8 mg total) by mouth every 8 (eight) hours as needed for nausea or vomiting 30 tablet 03/26/2021 3 documented as of this encounter Discharge Disposition Disposition Code Departure Means Destination Discharge to home or self care documented in this encounter Plan of Treatment Not on file documented as of this encounter Procedures Procedure Name Priority Date/Time Associated Diagnosis Comments MRI ABDOMEN MRCP W WO CONTRAST Schedule Routine, Read Routine (OP Routine) 08/12/2022 4:23 PM CDT Pancreatic cyst documented in this [...] AM T: ??08/13/2022 7:43 AM Report ID: [id number] Reading Location: ??[id number] Procedure Note Anika Reyes MD - 08/13/2022 [...] Electronically signed by Anika Reyes M.D. TW: TW Report ID: [id number] Reading Location: [id number] [facility] MRI PROCEDURES Final Result documented in this encounter Visit Diagnoses Diagnosis Pancreatic cyst Cyst and pseudocyst of pancreas documented in this encounter Administered Medications Inactive Administered Medications - up to 3 most recent administrations Medication Order MAR Action Action Date Dose Rate Site gadoterate meglumine 0.5 mmol/mL injection 7 mL 7 mL, intravenous, Once in imaging, contrast, Starting on Ailyn 08/12/22 at 1545, For 1 dose Contrast Given 08/12/2022 3:55 PM CDT 7 mL documented in this encounter Orders Medications Ordered That Sonu ht Not Have Been Administered Count Last Ordered Date First Ordered Date gadoterate meglumine 0.5 mmo l/mL injection 7 mL 1 08/12/2022 documented in this encounter Additional Health Concerns Infection Onset Date Last Indicated Resolved Time COVID: Recovered Comment:Added based on recent COVID infection. 05/29/2022 06/07/2022 09/26/2022 3:[address] documented as of this encounter Care Teams Sash Sticker Relationship Specialty Start Date End Date Brandon Dumont MD PCP - General 03/26/21 Abisai Moss MD Consulting Physician General Surgery 05/14/21 Nunu Steen MD Consulting Physician Gastroenterology 05/14/21 documented as of this encounter
--- OUTSIDE RECORDS SUMMARY | 2024-10-27 10:55 | XMS_ITS | Encounter Summary ---
Author Organization [facility] Address [address] [place] [address] Care Team Providers Care Cable Ferry Operator Name Role Phone Brandon Dumont MD Primary Care Provider [phone] Abisai Moss MD Unavailable Nunu Steen MD Unavailable [phone] Encounter Details Date Type Department Care Team (Late st Contact Info) Description 07/14/2022 Telephone [facility] Gastroenterology at [place] [address] [place] [address] Jania See PA [address] [place] [address] [address] [place], [place] [id number] Social History Tobacco Use Types Packs/Day Years Used Date Smoking Tobacco: Former Cigarettes Smokeless Tobacco: Never Comments:quit 2019 Alcohol Use Standard Drinks/Week Comments Not Currently 0 (1 standard drink = 0.6 oz pur e alcohol) Comments No Sex and Gender Information Value Date Recorded Sex Assigned at Not on file 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 documented in this encounter Plan of Treatment Not on file documented as of this encounter Visit Diagnoses Not on filedocumented in this encounter Additional Health Concerns Infection Onset Date Last Indicated Resolved Time COVID: Recovered Comment:Added based on recent COVID infection. 05/29/2022 06/07/2022 09/26/2022 3:[address] documented as of this encounter Care Teams Cable Ferry Operator Relationship Specialty Start Date End Date Brandon Dumont MD PCP - General 03/26/21 Abisai Moss MD Consulting Physician General Surgery 05/14/21 Nunu Steen MD Consulting Physician Gastroenterology 05/14/21 documented as of this encounter
--- OUTSIDE RECORDS SUMMARY | 2024-10-27 10:55 | XMS_ITS | Encounter Summary ---
Author Organization [facility] Address [address] [place] [address] Care Team Providers Care Transfer Man Name Role Phone Brandon Dumont MD Primary Care Provider [phone] Abisai Moss MD Unavailable Nunu Steen MD Unavailable [phone] Encounter Details Date Type Department Care Team (Late st Contact Info) Description 07/09/2022 Orders Only [facility] Gastroenterology at [address] [place] [address] Filiberto Greene RMA Social History Tobacco Use Types Packs/Day Years Used Date Smoking Tobacco: Former Cigarettes Smokeless Tobacco: Never Comments:quit 2020 Alcohol Use Standard Drinks/Week Comments Not Currently 0 (1 standard drink = 0.6 oz pur e alcohol) Comments No Sex and Gender Information Value Date Recorded Sex Assigned at Not on file 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
--- OUTSIDE RECORDS SUMMARY | 2024-10-27 10:55 | XMS_ITS | Encounter Summary ---
Author Organization [facility] Address [address] [place] [address] Care Team Providers Care Marketing Manager Health Communications Name Role Phone Brandon Dumont MD Primary Care Provider [phone] Abisai Moss MD Unavailable Nunu Steen MD Unavailable [phone] Reason for Referral * MRI/CAT/PET Scan (Routine) - Closed Specialty Diagnoses / Procedures Referred By Contac t Referred To Contact Radiology Diagnoses Weight loss Procedures CT Chest Abdomen Pelvis W Contrast Jania See PA [address] [place] [address] [address] [place] [address] Phone: tel: fax: [address] [address] Referral ID Status Reason Start Date Expiration Date Visits Re quested Visits Authorized [id number] Closed 06/14/2022 07/31/2022 1 1 Reason for Visit * Reason Comments Weight Loss Pt states that she i s having concerns regarding weight loss, states she lost over 20 pounds in the past year. Pt also states that she sometimes experience pain in her navel area where the incision was made for her Gall Bladder removal. Encounter Details Date Type Department Care Team (Latest Contact Info) Description 06/14/2022 10:30 AM CDT Office Visit [facility] Gastroenterology at [address] [place] [address] Jania See PA [address] [place] [address] [place] [address] Weight loss (Primary Dx); History of cholecystectomy; Fecal urgency; Diarrhea, unspecified type; Intermittent periumbilical abdominal pain; Nausea without vomiting; Tubular adenoma of colon; Decrease in appetite Social History Tobacco Use Types Packs/Day Years Used Date Smoking Tobacco: Former Cigarettes Smokeless Tobacco: Never Comments:quit 2019 Alcohol Use Standard Drinks/Week Comments Not Currently 0 (1 standard drink = 0.6 oz pur e alcohol) Comments No Sex and Gender Information Value Date Recorded Sex Assigned at Not on file 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 Gender Identity Not on file Sexual Orientation Not on file documented as of this encounter Last Filed Vital Signs Vital Sign Reading Time Taken Comments Blood Pressure 110/60 06/14/2022 10:50 AM CDT Pulse 61 06/14/2022 10:50 AM CDT Temperature - - Respiratory Rate - - Oxygen Saturation 98% 06/14/2022 10:50 AM CDT Inhaled Oxygen Concentration - - Weight 58.5 kg (129 lb) 06/14/2022 10:50 AM CDT Height 165.1 cm (5' 5 ) 06/14/2022 10:50 AM CDT Body Mass Index 21.47 06/14/2022 10:50 AM CDT documented in this encounter Ordered Prescriptions Prescription Sig Dispense Quantity Refills Last Filled Start Date End Date colestipoL (COLESTID) 1 gram tablet Take 1 tablet (1 g total) by mouth 2 (two) times a day 60 tablet 2 06/14/2022 09/14/2022 documented in this encounter Progress Notes * Jania See PA - 06/14/2022 10:30 AM CDT Images from the original note were not included. FOLLOW-UP VISIT Chief Complaint Patient presents with ??? Weight Loss Pt states that she is having concerns regarding weight loss, states she lost over 20 pounds in the past year. Pt also states that she sometimes experience pain in her navel area where the incision was made for her Gall Bladder removal. SUBJECTIVE: HPI: Ms. Amado is following up for Weight Loss (Pt states that she is having concerns regarding weight loss, states she lost over 20 pounds in the past year. Pt also states that she sometimes experience pain in her navel area where the incision was made for her Gall Bladder removal.) Patient is presenting to the office today as a follow-up for c/o weight loss. Patient states she has lost about 20lbs unintentionally over the past year, ever since her cholecystecomy. Weight is down7 lb since last visit in December. States the shortly after her cholecystectomy she began to have adecreased appetite. States that she believes she is having the decreased appetite due to eating causing her to have almost immediate loose bowel movements. States that she is trying to learn which foods trigger her diarrhea, but she notices it with majority of her foods. States initially the fecal urgency was mostly with fatty meals, but is now becoming more frequent. Patient also admits to intermittent episodes of pain around her umbilical region; this is not a newpain for her. States this pain is where she had an incision for her cholecystectomy. She denies anyother abdominal pain. Does admit to mild intermittent episodes of nausea; denies any vomiting. Denies any gas or bloating. Denies any heartburn, reflux, dysphagia. Denies any fevers. ROS: Review of Systems Constitutional: Positive for appetite change and unexpected weight change (20lb weight loss in one year). Negative for activity change, chills, fatigue and fever. HENT: Negative for congestion, ear pain, sinus pain, sore throat and trouble swallowing. Eyes: Negative for photophobia and pain. Respiratory: Negative for cough and shortness of breath. Cardiovascular: Negative for chest pain, palpitations and leg swelling. Gastrointestinal: Positive for abdominal pain (intermittent episodes umbilical pain) and diarrhea (with eating). Negative for abdominal distention, anal bleeding, blood in stool, constipation, nausea, rectal pain and vomiting. Genitourinary: Negative for dysuria, frequency and urgency. Musculoskeletal: Negative for arthralgias and myalgias. Skin: Negative for pallor and rash. Neurological: Negative for dizziness, tremors, syncope, weakness and light-headedness. Psychiatric/Behavioral: Negative for confusion and dysphoric mood. The patient is not nervous/anxious. Past Medical History: Diagnosis Date ??? Bladder spasms ??? Chronic pain 2020 ??? Gall stones ??? Hot flashes ??? Hypertension Past Surgical History: Procedure Laterality Date ??? BACK SURGERY 2016 ??? COLONOSCOPY 12/15/2021 Patient Active Problem List Diagnosis ??? Cigarette nicotine dependence, uncomplicated ??? Decrease in appetite ??? Degeneration of intervertebral disc of lumbar region ??? Irritable mood ??? Lumbar radiculopathy ??? Menopause present ??? Tobacco use ??? Referred otalgia of left ear ??? Allergic rhinitis ??? Cholecystitis ??? Anxiety ??? Abnormality of rectum ??? Elevated liver enzymes ??? Choledocholithiasis with acute cholecystitis ??? Uterine leiomyoma ??? Epigastric pain ??? S/P ERCP ??? Colon cancer screening ??? Diarrhea ??? Nausea Current Outpatient Medications on File Prior to Visit Medication Sig Dispense Refill ??? albuterol HFA (ProAir HFA) 90 mcg/actuation inhaler Inhale 2 puffs every 4 (four) hours as needed for wheezing or shortness of breath 8.5 g 0 ??? benzonatate (TESSALON) 200 mg capsule Take 1 capsule (200 mg total) by mouth 3 (three) times a day as needed for cough 30 capsule 0 ??? cloNIDine (CATAPRES) 0.3 mg tablet Take 0.3 mg by mouth daily ??? cyclobenzaprine (FLEXERIL) 10 mg tablet Take 1 tablet (10 mg total) by mouth 3 (three) times a day as needed for muscle spasms 12 tablet 0 ??? diazePAM (VALIUM) 5 mg tablet Take 5 mg by mouth 3 (three) times a day as needed ??? ergocalciferol (VITAMIN D) 50,000 unit capsule ??? erythromycin (ILOTYCIN) ophthalmic ointment Apply to right eye every 6 (six) hours for [address] a 1/2 inch ribbon of ointment into the lower eyelid. 1 g 0 ??? fluticasone propionate (FLONASE) 50 mcg/actuation nasal spray Administer 2 sprays into each nostril daily 16 g 11 ??? gabapentin (NEURONTIN) 300 mg capsule Take 1 capsule (300 mg total) by mouth nightly 90 capsule1 ??? hydrALAZINE (APRESOLINE) 25 mg tablet Take 1 tablet (25 mg total) by mouth 3 (three) times a day 90 tablet 11 ??? lidocaine viscous (XYLOCAINE) 2 % solution Gargle, swish and swallow/spit 5mL every six hours as needed for discomfort. Do not exceed maximum dose of of 4 times daily. 100 mL 0 ??? loratadine 10 mg capsule Take by mouth ??? ondansetron ODT (ZOFRAN-ODT) 8 mg disintegrating tablet Take 1 tablet (8 mg total) by mouth every 8 (eight) hours as needed for nausea or vomiting 30 tablet 0 ??? oxybutynin (DITROPAN) 5 mg tablet ??? tapentadol ER (NUCYNTA ER) 100 mg 12 hr tablet Take 100 mg by mouth 2 times daily ??? venlafaxine (EFFEXOR) 75 mg tablet Take 75 mg by mouth nightly No current facility-administered medications on file prior to visit. Family History Problem Relation Age of Onset ??? Heart attack Mother Family history of myocardial infarction - (Added by TW Conv) ??? Heart attack Father Family history of myocardial infarction - (Added by TW Conv) Social History Tobacco Use ??? Smoking status: Former Smoker Years: 40.00 ??? Smokeless tobacco: Never Used ??? Tobacco comment: quit 2020 Substance and Sexual Activity ??? Drug use: None ??? Sexual activity: None Alcohol Use: Not on file Allergies Allergen Reactions ??? Adhesive Rash OBJECTIVE: Vitals BP 110/60 Pulse 61 Ht 165.1 cm (5' 5 ) Wt 58.5 kg (129 lb) SpO2 98% BMI 21.47 kg/m?? Exam: Physical Exam Vitals reviewed. Constitutional: Appearance: Normal appearance. She is normal weight. She is not ill-appearing. HENT: Head: Normocephalic and atraumatic. Right Ear: External ear normal. Left Ear: External ear normal. Nose: Nose normal. Mouth/Throat: Mouth: Mucous membranes are moist. Pharynx: No posterior oropharyngeal erythema. Eyes: Conjunctiva/sclera: Conjunctivae normal. Cardiovascular: Rate and Rhythm: Normal rate and regular rhythm. Pulses: Normal pulses. Heart sounds: Normal heart sounds. Pulmonary: Effort: Pulmonary effort is normal. Breath sounds: Normal breath sounds. Abdominal: General: Abdomen is flat. Bowel sounds [...] X rays and endoscopy procedures. Lab on 06/14/2022 Component Date Value ??? Sodium 06/14/2022 142 ??? Potassium, pl 06/14/2022 3.8 ??? Chloride 06/14/2022 106 ??? CO2 06/14/2022 27 ??? Anion gap 06/14/2022 9 ??? BUN 06/14/2022 22 ??? Creatinine 06/14/2022 0.92 ??? Glucose 06/14/2022 73 ??? Calcium 06/14/2022 9.1 ??? Bilirubin, total 06/14/2022 0.2 ??? Protein, pl 06/14/2022 7.0 ??? Albumin 06/14/2022 4.0 ??? Alk phos 06/14/2022 94 ??? ALT 06/14/2022 8 ??? AST 06/14/2022 19 ??? WBC 06/14/2022 10.8 (A) ??? Hgb 06/14/2022 13.7 ??? Hct 06/14/2022 39.7 ??? Plt 06/14/2022 217 ??? MPV 06/14/2022 10.9 ??? RBC 06/14/2022 4.97 ??? MCV 06/14/2022 79.9 (A) ??? MCH 06/14/2022 27.6 ??? MCHC 06/14/2022 34.5 ??? RDW CV 06/14/2022 14.1 ??? RDW SD 06/14/2022 40.8 ??? NRBC abs 06/14/2022 0.00 ??? Neutrophil abs 06/14/2022 6.3 ??? Imm gran abs 06/14/2022 0.0 ??? Lymphocyte abs 06/14/2022 3.6 (A) ??? Monocyte abs 06/14/2022 0.6 ??? Eosinophil abs 06/14/2022 0.3 ??? Basophil abs 06/14/2022 0.1 ??? Neutrophil pct 06/14/2022 57.7 ??? Imm gran pct 06/14/2022 0.3 ??? Lymphocyte pct 06/14/2022 33.2 ??? Monocyte pct 06/14/2022 5.6 ??? Eosinophil pct 06/14/2022 2.6 ??? Basophil pct 06/14/2022 0.6 ??? eGFR 06/14/2022 72 Office Visit on 05/19/2022 Component Date Value ??? COVID-19 Ag POC (BD Veri* 05/19/2022 Positive (A) Office Visit on 03/26/2022 Component Date Value ??? Rapid Influenza A Ag 03/26/2022 Positive (A) ??? Rapid Influenza B Ag 03/26/2022 Negative ??? COVID-19 Ag POC (BD Veri* 03/26/2022 Presumptive Negative GI Assessment & Plan: Diagnoses and all orders for this visit: Weight loss (Primary) Decrease in appetite This is likely due to decreased appetite secondary to worsened fecal urgency/diarrhea. I believe that if we can control her urgency and diarrhea, her appetite should improve. Will also order a CT of C/A/P to R/O any signs of malignancy. Will order repeat baseline labs: CBC, CMP. - CT Chest Abdomen Pelvis W Contrast; Future - CBC with auto differential; Future - Comprehensive metabolic panel; Future History of cholecystectomy No concerning symptoms. Alk phos and bilirubin within normal limits. Fecal urgency Diarrhea, unspecified type Her fecal urgency has been present since her cholecystectomy. She states she notices that this is now occurring with most foods. Will start her on Colestid to see if this helps. She should avoid any known trigger foods, including greasy/fatty meals. Intermittent periumbilical abdominal pain This is a chronic intermittent pain for this patient. We will see what the CT C/A/P shows and go from there. May consider nerve pain medication in the future if no clear etiology found. Nausea without vomiting I believe that her nausea will improve once her bowel habits improve and she no longer associates eating with fecal urgency/diarrhea. Can consider PRN Zofran in the future if needed. Can also consider EGD in the future if nausea persists/worsens. Tubular adenoma of colon Patient has a history of tubular adenoma. She is on a 3 year screening schedule for colonoscopy, and is due in December 2024. Other orders - colestipoL (COLESTID) 1 gram tablet; Take 1 tablet (1 g total) by mouth 2 (two) times a day Total time spent on the date of the [id number] encounter, including both [id number]-lg-[id number] time (including staff/provider time spent providing education) and ylb-hrxr-tn-face time (pre-charting, reviewing chart, post-charting) was 30 minutes. This note is dictated and transcribed by [employer]. Roofer Helper variances may occur. Despite proofreading, typographical errors may occur. My collaborating physician is Dr. Nunu Steen- Gastroenterology. VENESSA Chen Cosigned by Nunu Steen MD at 06/15/2022 5:50 PM CDT documented in this encounter Plan of Treatment Not on file documented as of this encounter Results * CT Chest Abdomen Pelvis W Contrast (07/08/2022 4:26 PM CDT) Anatomical Region Laterality Modality Body N/A Computed Tomogra phy 07/08/2022 10:2 3 PM CDT Narrative 07/08/2022 10:47 PM CDT EXAM DESCRIPTION: ?? CT CHEST ABDOMEN PELVIS W CONTRAST REASON FOR STUDY: ?? Unintended weight loss in the last year, patient complains of pain in her naval ever since her cholecystectomy. TECHNIQUE: CT scan of the chest, abdomen, and pelvis performed with intravenous and ?? with ??oral contrast using helical scanning technique with dynamic intravenous contrast injection. Reconstructed coronal and sagittal MPR images reviewed. All images stored on PACS. ??Automated exposure control was used as a dose optimization technique for this examination. CONTRAST TYPE/DOSE: ?? 75 mL Optiray 350 ?? COMPARISON: ?? 05/10/2021 FINDINGS: CHEST LUNGS: ?? A nodular opacity in the medial right middle lobe and a bandlike opacity in the lingula are unchanged and most compatible with chronic atelectasis. ??A 3 mm left upper lobe nodule is seen on series 3, image 55. ??A 2 mm lateral right upper lobe nodule on image 48. ??Multiple 2 mm nodules in the superior segment of the left lower lobe on images 46 and 48. ??3 mm left lower lobe nodule on image 58. ??These nodules were not previously included on prior study scanning field. ??Background mild, upper lobe predominant emphysema is present. ??No consolidation. PLEURA: ?? No effusion. No pneumothorax. MEDIASTINUM/SHERRON: ?? No mediastinal lymphadenopathy. ??Mildly prominent bilateral hilar lymph nodes are present, for example measuring 2.2 x 1.2 cm on series 2, image 49. HEART: ?? Heart size is normal with no pericardial effusion. ?? Minimal atherosclerotic calcification seen in the left anterior descending coronary artery. VASCULATURE CHEST: ?? No thoracic aortic aneurysm or dissection. AXILLA: ?? No adenopathy. CHEST WALL: ?? No masses. ??No subcutaneous air. HARDWARE/LINES/TUBES: ?? None. MUSCULOSKELETAL CHEST: ?? No significant abnormality. ABDOMEN/PELVIS LIVER: ?? Normal size. ??No identified cystic or solid masses. GALLBLADDER: ?? Removed. BILE DUCTS: ?? No intrahepatic or extrahepatic ductal dilatation. SPLEEN: ?? Normal size. ??No focal lesions. PANCREAS: ??Two 2-3 mm cystic lesions are seen in the pancreatic head, unchanged. No significant calcifications. No adjacent inflammation or peripancreatic fluid collections. Pancreatic duct is not dilated. ?? ADRENALS: ?? Normal. KIDNEYS/URINARY TRACT: ?? No identified significant cystic or solid masses. No visualized stones. No hydronephrosis or hydroureter. Symmetric enhancement. ? Urinary bladder is unremarkable. GI: ?? No dilated bowel loops. No obvious wall thickening. ??Normal appendix. ?? No significant diverticular disease. PERITONEUM: ?? No ascites or free air. RETROPERITONEUM: ?? No mass or adenopathy. REPRODUCTIVE: ?? A 4.8 cm fibroid is again seen in the left adnexal region. ?? Another large soft tissue arising from the anterior uterine body measures 6.7 x 4.7 cm, unchanged and compatible with another fibroid VASCULATURE ABDOMEN: ?? Mild aortoiliac atherosclerotic calcifications. ??No abdominal aortic aneurysm. MUSCULOSKELETAL ABDOMEN PELVIS: ?? Mild degenerative endplate changes at L5/S1. No suspicious osseous lesions or acute fractures. OTHER: ?? Mild soft tissue thickening is seen in the umbilical tract. ?? Overall subcutaneous and intra-abdominal fat content has decreased. IMPRESSION: ??1. ??Mild upper lobe predominant emphysema with multiple 2-3 mm bilateral pulmonary nodules that were not previously included in the scanning field on the comparison CT. ??Recommend optional chest CT in 12 months per Fleischner society 2017 guideline. 2. ??Interval cholecystectomy with mild soft tissue thickening in the umbilical tract most compatible with granulation tissue along laparoscopic port tract 3. ??Decreased subcutaneous and intra-abdominal fat compatible with provided history of weight loss. 4. ??Stable large uterine fibroids. 5. ??Stable 2-3 mm cystic lesions in the pancreatic head. ??Continued attention on follow-up recommended. THIS IS AN ELECTRONICALLY VERIFIED FINAL REPORT 07/08/2022 10:47 PM - Electronically signed by ??Jatinder Pineda M.D. ML: ML D: ??07/08/2022 10:47 PM T: ??07/08/2022 10:47 PM Report ID: [id number] Reading Location: ??[id number] Procedure Note Jatinder Pineda MD - 07/08/2022 EXAM DESCRIPTION: CT CHEST ABDOMEN PELVIS W CONTRAST REASON FOR STUDY: Unintended weight loss in the last year, patientcomplains of pain in her naval ever since her cholecystectomy. TECHNIQUE: CT scan of the chest, abdomen, and pelvis performed with intravenous and with oral contrast using helical scanning techniquewith dynamic intravenous contrast injection. Reconstructed coronal and sagittalMPR images reviewed. All images stored on PACS. Automated exposure controlwas used as a dose optimization technique for this examination. CONTRAST TYPE/DOSE: 75 mL Optiray 350 COMPARISON: 05/10/2021 FINDINGS: CHEST LUNGS: A nodular opacity in the medial right middle lobe and a bandlike opacity in the lingula are unchanged and most compatible with chronic atelectasis. A 3 mm left upper lobe nodule is seen on series 3, image 55.A 2 mm lateral right upper lobe nodule on image 48. Multiple 2 mm nodulesin the superior segment of the left lower lobe on images 46 and 48. 3 mmleft lower lobe nodule on image 58. These nodules were not previously includedon prior study scanning field. Background mild, upper lobe predominantemphysema is present. No consolidation. PLEURA: No effusion. No pneumothorax. MEDIASTINUM/SHERRON: No mediastinal lymphadenopathy. Mildly prominent bilateral hilar lymph nodes are present, for example measuring 2.2 x 1.2cm on series 2, image 49. HEART: Heart size is normal with no pericardial effusion. Minimal atherosclerotic calcification seen in the left anterior descendingcoronary artery. VASCULATURE CHEST: No thoracic aortic aneurysm or dissection. AXILLA: No adenopathy. CHEST WALL: No masses. No subcutaneous air. HARDWARE/LINES/TUBES: None. MUSCULOSKELETAL CHEST: No significant abnormality. ABDOMEN/PELVIS LIVER: Normal size. No identified cystic or solid masses. GALLBLADDER: Removed. BILE DUCTS: No intrahepatic or extrahepatic ductal dilatation. SPLEEN: Normal size. No focal lesions. PANCREAS: Two 2-3 mm cystic lesions are seen in the pancreatic head, unchanged. No significant calcifications. No adjacent inflammation or peripancreatic fluid collections. Pancreatic duct is not dilated. ADRENALS: Normal. KIDNEYS/URINARY TRACT: No identified significant cystic or solid masses.No visualized stones. No hydronephrosis or hydroureter. Symmetricenhancement. Urinary bladder is unremarkable. GI: No dilated bowel loops. No obvious wall thickening. Normalappendix. No significant diverticular disease. PERITONEUM: No ascites or free air. RETROPERITONEUM: No mass or adenopathy. REPRODUCTIVE: A 4.8 cm fibroid is again seen in the left adnexal region. Another large soft tissue arising from the anterior uterine body measures6.7 x 4.7 cm, unchanged and compatible with another fibroid VASCULATURE ABDOMEN: Mild aortoiliac atherosclerotic calcifications. No abdominal aortic aneurysm. MUSCULOSKELETAL ABDOMEN PELVIS: Mild degenerative endplate changes atL5/S1. No suspicious osseous lesions or acute fractures. OTHER: Mild soft tissue thickening is seen in the umbilical tract.Overall subcutaneous and intra-abdominal fat content has decreased. IMPRESSION: 1. Mild upper lobe predominant emphysema with multiple 2-3 mm bilateral pulmonary nodules that were not previously included in the scanning fieldon the comparison CT. Recommend optional chest CT in 12 months perFleischner society 2017 guideline. 2. Interval cholecystectomy with mild soft tissue thickening in theumbilical tract most compatible with granulation tissue along laparoscopic porttract 3. Decreased subcutaneous and intra-abdominal fat compatible withprovided history of weight loss. 4. Stable large uterine fibroids. 5. Stable 2-3 mm cystic lesions in the pancreatic head. Continuedattention on follow-up recommended. THIS IS AN ELECTRONICALLY VERIFIED FINAL REPORT 07/08/2022 10:47 PM - Electronically signed by Jatinder iPneda M.D. ML: ML Report ID: [id number] Reading Location: [place] [address] PROCEDURES Final Result * Comprehensive metabolic panel (06/14/2022 11:20 AM CDT) Sodium 142 135 - 145 mmol/L [facility] Potassium, pl 3.8 3.3 - 4.9 mmol/L [facility] Chloride 106 97 - 110 mmol/L [facility] CO2 27 22 - 32 mmol/L [facility] Anion gap 9 2 - 15 mmol/L [facility] BUN 22 8 - 25 mg/dL [facility] Creatinine 0.92 0.60 - 1.10 mg/dL [facility] Glucose 73 70 - 199 mg/dL [facility] Comment: Interpretive Data Fasting glucose >/= 126 [...] classification and Diagnosis of Diabetes Diabetes Care 2017;40 (Suppl. 1):S11. Current interpretive data was last revised 2017. Calcium 9.1 8.5 - 10.3 mg/dL [facility] Bilirubin, total 0.2 0.1 - 1.2 mg/dL [facility] Protein, pl 7.0 6.5 - 8.5 g/dL [facility] Albumin 4.0 3.5 - 5.0 g/dL [facility] Alk phos 94 40 - 130 Units/L [facility] ALT 8 7 - 45 Units/L [facility] AST 19 10 - 45 Units/L [facility] Blood 06/14/2022 11:2 0 AM CDT 06/14/2022 1:26 PM CDT us Jania [facility] LAB BLOOD ORDERABLES Fin al Result [facility] 1 [facility] Department of Laboratories [place] [id number] * (ABNORMAL) CBC with auto differential (06/14/2022 11:20 AM CDT) WBC 10.8(H) 3.8 - 9.9 K/cumm [facility] Hgb 13.7 11.9 - 15.5 g/dL [facility] Hct 39.7 35.6 - 45.5 % [facility] Plt 217 150 - 400 K/cumm [facility] MPV 10.9 9.1 - 12.3 fL [facility] RBC 4.97 3.90 - 5.20 M/cumm [facility] MCV 79.9(L) 81.3 - 96.4 fL [facility] MCH 27.6 27.1 - 33.3 pg [facility] MCHC 34.5 32.3 - 35.7 g/dL [facility] RDW CV 14.1 11.1 - 14.9 % [facility] RDW SD 40.8 35.7 - 48.1 fL [facility] NRBC abs 0.00 0.00 - 0.01 K/cumm [facility] ([facility] Blood 06/14/2022 11:2 0 AM CDT 06/14/2022 1:26 PM CDT us Jania [facility] LAB BLOOD ORDERABLES Fin al Result [facility] ([place]) 1 [facility] Department [place] [address] documented in this encounter Visit Diagnoses Diagnosis Weight loss- Primary Loss of weight History of cholecystectomy Other acquired absence of organ Fecal urgency Diarrhea, unspecified type Intermittent periumbilical abdominal pain Nausea without vomiting Tubular adenoma of colon Benign neoplasm of colon Decrease in appetite Weight loss Loss of weight documented in this encounter Additional Health Concerns Infection Onset Date Last Indicated Resolved Time COVID: Recovered Comment:Added based on recent COVID infection. 05/29/2022 06/07/2022 09/26/2022 3:[address] documented as of this encounter Care Teams Marketing Manager Health Communications Relationship Specialty Start Date End Date Brandon Dumont MD PCP - General 03/26/21 Abisai Moss MD Consulting Physician General Surgery 05/14/21 Nunu Steen MD Consulting Physician Gastroenterology 05/14/21 documented as of this encounter
--- OUTSIDE RECORDS SUMMARY | 2024-10-27 10:55 | XMS_ITS | Encounter Summary ---
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 Name Role Phone Brandon Dumont MD Primary Care Provider [phone] Abisai Moss MD Unavailable Nunu Steen MD Unavailable [phone] Reason for Visit * Reason Comments COVID-19 EVALUATION Loss of appetite,fat igue,postnasal drip,sinus pressure,cough,sore throat,sob,body aches x days Encounter Details Date Type Department Care Team (Late st Contact Info) Description 05/19/2022 10:15 AM CDT Office Visit [facility] [address] [place] [address] [place] [address] Luiza Carver NP [address] [place] [address] COVID-19 (Primary Dx); Cough; Influenza A; Sore throat due to virus Social History Tobacco Use Types Packs/Day Years Used Date Smoking Tobacco: Former Cigarettes Smokeless Tobacco: Never Comments:quit 2020 Alcohol Use Standard Drinks/Week Comments Not Currently 0 (1 standard drink = 0.6 oz pur e alcohol) Comments No Sex and Gender Information Value Date Recorded Sex Assigned at Not on file 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 Gender Identity Not on file Sexual Orientation Not on file documented as of this encounter Last Filed Vital Signs Vital Sign Reading Time Taken Comments Blood Pressure 100/62 05/19/2022 9:59 AM CDT Pulse 91 05/19/2022 9:59 AM CDT Temperature 37.2 ??C (98.9 ??F) 05/19/2022 9:59 AM CD T Respiratory Rate 18 05/19/2022 9:59 AM CDT Oxygen Saturation 94% 05/19/2022 9:59 AM CDT Inhaled Oxygen Concentration - - Weight 59.9 kg (132 lb) 05/19/2022 9:59 AM CDT Height - - Body Mass Index 21.97 03/26/2022 7:31 PM CDT documented in this encounter Patient Instructions * Patient Instructions* Luiza Carver CRITICAL CARE TRANSPORT NURSE - 05/19/2022 10:15 AM CDT Your rapid COVID-19 test was positive today in clinic. CDC recommends you self isolate until at least 5 days have passed since symptom onset. If you have no symptoms or your symptoms are resolving after 5 days, you can leave your house. Continue to wear a mask around others for 5 additional days. If you have a fever, continue to stay home until you have been fever free for 24 hours without the use of fever reducing medications. Please notify all individuals you had close contact with up to 2 days prior to developing symptoms of your Covid infection. The health department is notified of all positive COVID-19 cases and should be in contact with you shortly. Steps to help prevent the spread of COVID-19 if you are sick If you are sick with COVID-19 or think you might have COVID-19, follow the steps below to care for yourself and to help protect other people in your home and community. Stay home except to get medical care Most people with COVID-19 have mild illness and are able to recover at home without medical care. Do not leave your home, except to get medical care. Do not visit public areas. Take care of yourself. Get rest and stay hydrated. Take ties-anr-vuovnny medicines to help you feelbetter. Stay in touch with your doctor. Call before you get medical care. Be sure to get care if you have trouble breathing, or have any other emergency warning signs, or if you think it is an emergency. Avoid using public transportation, ride-sharing, or taxis. Monitor your symptoms People with COVID-19 have had a wide range of symptoms reported - ranging from mild symptoms to severe illness. Symptoms may appear 2-14 days after exposure to the virus. Anyone can have mild to severe symptoms. People with these symptoms may have COVID-19: Symptoms of COVID-19 include fever, cough, shortness of breath or difficulty breathing, fatigue, muscle or body aches, headache, new loss of taste or smell, sore throat, congestion, runny nose, nausea, vomiting, or diarrhea. When to Seek Medical Attention If you develop emergency warning signs for COVID-19 get medical attention immediately. Emergency warning signs include*: Trouble breathing Persistent pain or pressure in the chest New confusion or inability to arouse Bluish lips or face *This list is not all inclusive. Please consult your medical provider for any other symptoms that are severe or concerning. Call 911 if you have a medical emergency: If you have a medical emergency and need to call 911, notify the crusher operator that you have or think you might have, COVID-19. If possible, put on a facemask before medical help arrives. Separate yourself from other people in your home, this is known as home isolation As much as possible, stay in a specific room and away from other people and pets in your home. If possible, you should use a separate bathroom. If you need to be around other people or animals in or outside of the home, wear a mask. For more information on sharing close living quarters with someone who is sick visit https://www.cdc .gov/coronavirus/2019-ncov/boyae-veiq-crgrsy/xkrhee-mv-ajwxt-quarters.html For more information on COVID-19 and pets visit https://www.cdc.gov/coronavirus/2019-ncov/faq.html Get Tested If you have symptoms of COVID-19, get tested. While waiting for test results, you stay away from others, including staying apart from those living in your household. Self-tests are one of several options for testing for the virus that causes COVID-19 and may be more convenient than laboratory-based tests and gikob-wq-fpcd tests. Ask your healthcare provider or your local health department if you need help interpreting your test results. You can visit your state, [place], [facility] emergency, and [facility] department???s websiteto look for the latest local information on testing sites. Call ahead before visiting your doctor Many medical visits for routine care are being postponed or done by phone or telemedicine. If you have a medical appointment that cannot be postponed, call your doctor???s office, and tell them you have or may have COVID-19. This will help the office protect themselves and other patients. If you are sick wear a face mask over your nose and mouth in the following situations You should wear a face mask over your nose and mouth if you must be around other people or animals,including pets (even at home). You don't need to wear the face mask if you are alone. If you can't put on a face mask (because of trouble breathing, for example), cover your coughs and sneezes in some other way (tissue or inner elbow). Try to stay at least 6 feet away from other people. This will help protect the people around you. Face masks should not be placed on children under 2 years old, anyone who has trouble breathing, oranyone who is not able to remove the covering without help. Cover your coughs and sneezes Cover your mouth and nose with a tissue or the inside of your elbow when you cough or sneeze. Throw used tissues in a lined trash can. Immediately wash your hands with soap and water for at least 20 seconds. If soap and water are not available, clean your hands with an alcohol-based hand fabrication inspector that contains at least 60% alcohol. Clean your hands often Wash your hands often with soap and water for at least 20 seconds. This is especially important after blowing your nose, coughing, or sneezing; going to the bathroom; and before eating or preparing food. Use hand fabrication inspector if soap and water are not available. Use an alcohol-based hand fabrication inspector with atleast 60% alcohol, covering all surfaces of your hands and rubbing them together until they feel dry. Soap and water are the best option, especially if hands are visibly dirty. Avoid touching your eyes, nose, and mouth especially with unwashed hands. Avoid sharing personal household items Do not share dishes, drinking glasses, cups, eating utensils, towels, or bedding with other people in your home. After using these items, wash them thoroughly with soap and water or put them in the water fitness instructor. Clean all ???high-touch?? surfaces everyday. High-touch surfaces include phones, remote controls, counters, tabletops, doorknobs, bathroom fixtures, toilets, keyboards, tablets, and bedside tables. Clean and disinfect high-touch surfaces in your ???sick room?? and bathroom everyday while wearingdisposable gloves. Let someone else clean and disinfect surfaces in common areas, but not your bedroom and bathroom. If a caregiver or other person needs to clean and disinfect a sick person???s bedroom or bathroom, they should do so on an as-needed basis. The caregiver/other person should wear a mask and disposable gloves prior to cleaning.They should wait as long as possible after the sick person has used the bathroom before coming in to clean and use the bathroom. Clean and disinfect areas that may have blood, stool, or body fluids on them. Clean the area or item with soap and water or another detergent if it is dirty. Then, use a household disinfectant. Be sure to follow the instructions on the label to ensure safe and effective use of the product. Many products recommend keeping the surface wet for several minutes to ensure germs are killed. Many also recommend precautions such as wearing gloves and making sure you have good ventilation during use of the product. Most EPA-registered household disinfectants should be effective. When you can be around others (end home isolation) depends on different factors for different situations. If You Test Positive for COVID-19 Everyone, regardless of vaccination status needs to self isolate: Stay home for 5 days. If you have no symptoms or your symptoms are resolving after 5 days, you can leave your house. Continue to wear a mask around others for 5 additional days. If you have a fever, continue to stay home until you have been fever free for 24 hours without the use of fever reducing medications. If You Were Exposed to Someone with COVID-19 (Quarantine) If you: Have been boosted OR Completed the primary series of Pfizer or Moderna vaccine within the last 6 months OR Completed the primary series of J&J vaccine within the last 2 months Then you: Wear a mask around others for 10 days. Test on day 5, if possible. If you develop symptoms get a test and stay home. If you: Completed the primary series of Pfizer or Moderna vaccine over 6 months ago and are not boosted OR Completed the primary series of J&J over 2 months ago and are not boosted OR Are unvaccinated Then you: Stay home for 5 days. After that continue to wear a mask around others for 5 additional days. If you can???t quarantine you must wear a mask for 10 days. Test on day 5 if possible. If you develop symptoms get a test and stay home COVID-19 Vaccine Information COVID-19 vaccines are safe and effective. Everyone 5 years and older is now eligible to get a free COVID-19 vaccination. CDC is endorsing updated recommendations (2021) made by the Advisory Committee on Immunization Practices (ACIP) for the prevention of COVID-19, expressing a clinical preference for individuals to receive an mRNA COVID-19 (Pfizer or Moderna) vaccine over [employer]? s COVID-19 vaccine. Learn about the different vaccines available at https://www.cdc.gov/coronavirus/2019-ncov/vaccines/different-vaccines.html Learn about how COVID-19 vaccines work at https://www.cdc.gov/coronavirus/2019-ncov/vaccines/differe nt-vaccines/tih-afkm-efuj.html Search Tifen.com.gov, text your [place] [id number], or call to find COVID-19 vaccine locations near you. The above information is from the CDC website on Nov 02, 2021. Page was last updated: Nov 03, 2021. Additional information and resources about COVID-19 symptoms, testing, self- isolation, how to prevent spread, vaccinations and more are available at: www.cdc.gov/coronavirus documented in this encounter Ordered Prescriptions Prescription Sig Dispense Quantity Refills Last Filled Start Date End Date albuterol HFA (ProAir HFA) 90 mcg/actuation inhalerIndications :Cough Inhale 2 puffs every 4 (four) hours as needed for wheezing or shortness of breath 8.5 g 05/19/2022 lidocaine viscous (XYLOCAINE) 2 % solutionIndication s:Sore throat due to virus Gargle, swish and swallow/spit 5mL every six hours as needed for discomfort. Do not exceed maximum dose of of 4 times daily. 100 mL 05/19/2022 3 benzonatate (TESSALON) 200 mg capsuleIndications :Cough Take 1 capsule (200 mg total) by mouth 3 (three) times a day as needed for cough 30 capsule 05/19/2022 4 documented in this encounter Progress Notes * Luiza Carver, CRITICAL CARE TRANSPORT NURSE - 05/19/2022 10:15 AM CDT Images from the original note were not included. Patient ID: Joselyn Amado is a 61 y.o. female followed by Brandon Dumont MD Chief Complaint Patient presents with ??? COVID-19 EVALUATION Loss of appetite,fatigue,postnasal drip,sinus pressure,cough,sore throat,sob,body aches x days Patient presents to [facility] with c/o loss of appetite, fatigue, postnasal drip, sinus pressure, sore throat, SOB, and myalgia that began on 05/15/2022. Pt fully vaccinated against COVID-19. Denies known exposure to COVID-19. Endorses use of OTC medication for symptom management with minimal relief. Review of Systems Constitutional: Positive for appetite change and fatigue. Negative for chills and fever. HENT: Positive for postnasal drip, rhinorrhea, sinus pressure, sinus pain and sore throat. Negativefor congestion and ear pain. Respiratory: Positive for shortness of breath. Negative for cough, chest tightness and wheezing. Cardiovascular: Negative for chest pain. Musculoskeletal: Positive for myalgias. Neurological: Negative for headaches. Vitals: 05/19/22 0959 BP: 100/62 Pulse: 91 Resp: 18 Temp: 37.2 ??C (98.9 ??F) SpO2: 94% Weight: 59.9 kg (132 lb) Recent Results (from the past 24 hour(s)) COVID-19 POC Collection Time: 05/19/22 10:12 AM Result Value Ref Range COVID-19 Ag POC (BD Veritor) Positive (A) Presumptive Negative, Invalid Physical Exam Vitals reviewed. Constitutional: General: She is not in acute distress. Appearance: Normal appearance. She is well-developed. She is ill-appearing. HENT: Head: Normocephalic. Salivary Glands: Right salivary gland is tender. Left salivary gland is tender. Right Ear: Tympanic membrane, ear canal and external ear normal. There is impacted cerumen. Left Ear: Tympanic membrane, ear canal and external ear normal. Tenderness present. There is impacted cerumen. Nose: No congestion or rhinorrhea. Right Sinus: Maxillary sinus tenderness and frontal sinus tenderness present. Left Sinus: Maxillary sinus tenderness and frontal sinus tenderness present. Mouth/Throat: Lips: Rover. Mouth: Mucous membranes are moist. Pharynx: Oropharynx is clear. Eyes: General: Right eye: No discharge. Left eye: No discharge. Conjunctiva/sclera: Conjunctivae normal. Cardiovascular: Rate and Rhythm: Normal rate and regular rhythm. Heart sounds: Normal heart sounds. Pulmonary: Effort: Pulmonary effort is normal. No respiratory distress. Breath sounds: Normal air entry. Examination of the right-upper field reveals wheezing. Examinationof the left-upper field reveals wheezing. Examination of the right-middle field reveals wheezing. Examination of the left-middle field reveals wheezing. Wheezing present. Abdominal: Tenderness: There is no abdominal tenderness. Musculoskeletal: General: Normal range of motion. Cervical back: Neck supple. Lymphadenopathy: Head: Right side of head: Tonsillar adenopathy present. No submental, submandibular or preauricular adenopathy. Left side of head: Submandibular and tonsillar adenopathy present. No submental or preauricular adenopathy. Cervical: No cervical adenopathy. Skin: General: Skin is warm and dry. Findings: No rash. Neurological: Mental Status: She is alert and oriented to person, place, and time. Mental status is at baseline. Psychiatric: Attention and Perception: Attention normal. Mood and Affect: Mood normal. Behavior: Behavior normal. Behavior is cooperative. Thought Content: Thought content normal. Judgment: Judgment normal. Assessment/Plan ??? Discussed home self-care, follow up needs, and signs and symptoms that warrant immediate medical attention/ER evaluation including worsening fever, increased shortness of breath, severe N/V/D, orany other worrisome symptoms ??? Reviewed isolation/quarantine protocols ??? Discussed symptomatic relief of symptoms ??? Advised to rest and increase oral fluid intake ??? Advised to stay out of work and work release given explaining when patient can return to work Diagnoses and all orders for this visit: Cough (Primary) - COVID-19 POC Orders Placed This Encounter Procedures ??? COVID-19 POC Order Specific Question: Is the Patient experiencing symptoms consistent with COVID? Answer: Yes Order Specific Question: Date of Symptom Onset Answer: 05/15/2022 Order Specific Question: Is the patient hospitalized? Answer: No Order Specific Question: Is the patient admitted to an ICU? Answer: No Order Specific Question: Does the patient currently work in a healthcare facility with direct patient contact? Answer: No Order Specific Question: Is the patient a resident of a congregate care or living setting? Answer: No Order Specific Question: ? Answer: No Order Specific Question: Is this the first COVID-19 test for this patient? Answer: No Patient Education Your rapid COVID-19 test was positive today in clinic. CDC recommends you self isolate until at least 5 days have passed since symptom onset. If you have no symptoms or your symptoms are resolving after 5 days, you can leave your house. Continue to wear a mask around others for 5 additional days. If you have a fever, continue to stay home until you have been fever free for 24 hours without the use of fever reducing medications. Please notify all individuals you had close contact with up to 2 days prior to developing symptoms of your Covid infection. The health department is notified of all positive COVID-19 cases and should be in contact with you shortly. Steps to help prevent the spread of COVID-19 if you are sick If you are sick with COVID-19 or think you might have COVID-19, follow the steps below to care for yourself and to help protect other people in your home and community. Stay home except to get medical care ??? Most people with COVID-19 have mild illness and are able to recover at home without medical care. Do not leave your home, except to get medical care. Do not visit public areas. ??? Take care of yourself. Get rest and stay hydrated. Take qlbd-scq-ekojorn medicines to help you feel better. ??? Stay in touch with your doctor. Call before you get medical care. Be sure to get care if you have trouble breathing, or have any other emergency warning signs, or if you think it is an emergency. ??? Avoid using public transportation, ride-sharing, or taxis. Monitor your symptoms People with COVID-19 have had a wide range of symptoms reported - ranging from mild symptoms to severe illness. Symptoms may appear 2-14 days after exposure to the virus. Anyone can have mild to severe symptoms. People with these symptoms may have COVID-19: ??? Symptoms of COVID-19 include fever, cough, shortness of breath or difficulty breathing, fatigue, muscle or body aches, headache, new loss of taste or smell, sore throat, congestion, runny nose, nausea, vomiting, or diarrhea. When to Seek Medical Attention If you develop emergency warning signs for COVID-19 get medical attention immediately. Emergency warning signs include*: ??? Trouble breathing ??? Persistent pain or pressure in the chest ??? New confusion or inability to arouse ??? Bluish lips or face *This list is not all inclusive. Please consult your medical provider for any other symptoms that are severe or concerning. Call 911 if you have a medical emergency: If you have a medical emergency and need to call 911, notify the crusher operator that you have or think you might have, COVID-19. If possible, put on a facemask before medical help arrives. Separate yourself from other people in your home, this is known as home isolation ??? As much as possible, stay in a specific room and away from other people and pets in your home. If possible, you should use a separate bathroom. If you need to be around other people or animals inor outside of the home, wear a mask. ??? For more information on sharing close living quarters with someone who is sick visit https://www .cdc.gov/coronavirus/2019-ncov/ozjal-xhgo-dbbooz/uwgydm-zi-kgfcw-quarters.html ??? For more information on COVID-19 and pets visit https://www.cdc.gov/coronavirus/2019-ncov/faq.html Get Tested ??? If you have symptoms of COVID-19, get tested. While waiting for test results, you stay away from others, including staying apart from those living in your household. ??? Self-tests are one of several options for testing for the virus that causes COVID-19 and may bemore convenient than laboratory-based tests and ysqgg-wk-reee tests. Ask your healthcare provider or your local health department if you need help interpreting your test results. ??? You can visit your [facility], [place], [facility], and [facility] department???s website to look for the latest local information on testing sites. Call ahead before visiting your doctor ??? Many medical visits for routine care are being postponed or done by phone or telemedicine. ??? If you have a medical appointment that cannot be postponed, call your doctor???s office, and tell them you have or may have COVID-19. This will help the office protect themselves and other patients. If you are sick wear a face mask over your nose and mouth in the following situations ??? You should wear a face mask over your nose and mouth if you must be around other people or animals, including pets (even at home). ??? You don't need to wear the face mask if you are alone. If you can't put on a face mask (becauseof trouble breathing, for example), cover your coughs and sneezes in some other way (tissue or inner elbow). Try to stay at least 6 feet away from other people. This will help protect the people around you. ??? Face masks should not be placed on children under 2 years old, anyone who has trouble breathing, or anyone who is not able to remove the covering without help. Cover your coughs and sneezes ??? Cover your mouth and nose with a tissue or the inside of your elbow when you cough or sneeze. ??? Throw used tissues in a lined trash can. ??? Immediately wash your hands with soap and water for at least 20 seconds. If soap and water are not available, clean your hands with an alcohol-based hand fabrication inspector that contains at least 60% alcohol. Clean your hands often ??? Wash your hands often with soap and water for at least 20 seconds. This is especially importantafter blowing your nose, coughing, or sneezing; going to the bathroom; and before eating or preparing food. ??? Use hand fabrication inspector if soap and water are not available. Use an alcohol-based hand fabrication inspector with at least 60% alcohol, covering all surfaces of your hands and rubbing them together until they feel dry. ??? Soap and water are the best option, especially if hands are visibly dirty. ??? Avoid touching your eyes, nose, and mouth especially with unwashed hands. Avoid sharing personal household items ??? Do not share dishes, drinking glasses, cups, eating utensils, towels, or bedding with other people in your home. ??? After using these items, wash them thoroughly with soap and water or put them in the water fitness instructor. Clean all ???high-touch?? surfaces everyday. High-touch surfaces include phones, remote controls, counters, tabletops, doorknobs, bathroom fixtures, toilets, keyboards, tablets, and bedside tables. ??? Clean and disinfect high-touch surfaces in your ???sick room?? and bathroom everyday while wearing disposable gloves. Let someone else clean and disinfect surfaces in common areas, but not your bedroom and bathroom. ??? If a caregiver or other person needs to clean and disinfect a sick person???s bedroom or bathroom, they should do so on an as-needed basis. The caregiver/other person should wear a mask and disposable gloves prior to cleaning.They should wait as long as possible after the sick person has used the bathroom before coming in to clean and use the bathroom. ??? Clean and disinfect areas that may have blood, stool, or body fluids on them. ??? Clean the area or item with soap and water or another detergent if it is dirty. Then, use a household disinfectant. o Be sure to follow the instructions on the label to ensure safe and effective use of the product. Many products recommend keeping the surface wet for several minutes to ensure germs are killed. Manyalso recommend precautions such as wearing gloves and making sure you have good ventilation during use of the product. o Most EPA-registered household disinfectants should be effective. When you can be around others (end home isolation) depends on different factors for different situations. If You Test Positive for COVID-19 Everyone, regardless of vaccination status needs to self isolate: Stay home for 5 days. If you have no symptoms or your symptoms are resolving after 5 days, you can leave your house. Continue to wear a mask around others for 5 additional days. If you have a fever, continue to stay home until you have been fever free for 24 hours without the use of fever reducing medications. If You Were Exposed to Someone with COVID-19 (Quarantine) If you: Have been boosted OR Completed the primary series of Pfizer or Moderna vaccine within the last 6 months OR Completed the primary series of J&J vaccine within the last 2 months Then you: Wear a mask around others for 10 days. Test on day 5, if possible. If you develop symptoms get a test and stay home. If you: Completed the primary series of Pfizer or Moderna vaccine over 6 months ago and are not boosted OR Completed the primary series of J&J over 2 months ago and are not boosted OR Are unvaccinated Then you: Stay home for 5 days. After that continue to wear a mask around others for 5 additional days. If you can???t quarantine you must wear a mask for 10 days. Test on day 5 if possible. If you develop symptoms get a test and stay home COVID-19 Vaccine Information ??? COVID-19 vaccines are safe and effective. ??? Everyone 5 years and older is now eligible to get a free COVID-19 vaccination. ??? CDC is endorsing updated recommendations (2021) made by the Advisory Committee on Immunization Practices (ACIP) for the prevention of COVID-19, expressing a clinical preference for individuals to receive an mRNA COVID-19 (Pfizer or Moderna) vaccine over [employer]? s COVID-19 vaccine. Learn about the different vaccines available at https://www.cdc.gov/coronavirus/2019-ncov/vaccines/different-vaccines.html Learn about how COVID-19 vaccines work at https://www.cdc.gov/coronavirus/2019-ncov/vaccines/differe nt-vaccines/kov-yecl-gnwl.html Search Tifen.com.gov, text your [place] [phone], or call to find COVID-19 vaccine locations near you. The above information is from the CDC website on Nov 02, 2021. Page was last updated: Nov 03, 2021. Additional information and resources about COVID-19 symptoms, testing, self- isolation, how to prevent spread, vaccinations and more are available at: www.cdc.gov/coronavirus documented in this encounter Plan of Treatment Not on file documented as of this encounter Procedures Procedure Name Priority Date/Time Associated Diagnosis Comments COVID-19 POC Routine 05/19/2022 10:12 AM CDT Cough documented in this encounter Results * (ABNORMAL) COVID-19 POC (05/19/2022 10:12 AM CDT) COVID-19 Ag POC (BD Veritor) Positive( A) Presumptive Negative, Invalid [facility] Nasal 05/19/2022 10:1 2 AM CDT Luiza Carver CRITICAL CARE TRANSPORT NURSE POINT OF CARE TEST ORDER ADRIANNA Final Result Performing Organization Address City/State/[facility] Co de Phone Number [facility] [address] [place] [address] [place] [address] documented in this encounter Visit Diagnoses Diagnosis COVID-19- Primary Cough Influenza A Influenza with other respiratory manifestations Sore throat due to virus documented in this encounter Discontinued Medications Medication Sig Discontinue Reason Start Date End Da te albuterol HFA (ProAir HFA) 90 mcg/actuation inhalerIndications:Infl uenza A Inhale 2 puffs every 4 (four) hours as needed for wheezing or shortness of breath Reorder 03/26/2022 05/19/2022 documented as of this encounter Additional Health Concerns Infection Onset Date Last Indicated Resolved Time COVID19 05/19/2022 05/19/2022 05/29/2022 3:05 AM CDT documented as of this encounter Care Teams Waiter/Waitress Tavern Relationship Specialty Start Date End Date Brandon Dumont MD PCP - General 03/26/21 Abisai Moss MD Consulting Physician General Surgery 05/14/21 Nunu Steen MD Consulting Physician Gastroenterology 05/14/21 documented as of this encounter
--- OUTSIDE RECORDS SUMMARY | 2024-10-27 10:55 | XMS_ITS | Encounter Summary ---
Author Organization [facility] Address [address] [place] [address] [address] [place] [address] Care Team Providers Care Memory Care Director Name Role Phone Brandon Dmuont MD Primary Care Provider [phone] Abisai Moss MD Unavailable Nunu Steen MD Unavailable [phone] Reason for Visit * Reason Onset Date Comments Covid-19 Home Monitoring 11/24/2021 Encounter Details Date Type Department Care Team (Late st Contact Info) Description 11/24/2021 Telephone [facility] Accountable Care Organization [address] [place] [id number] Lulu Sutton LPN [address] [place] [id number] Covid-19 Home Monitoring Social History Tobacco Use Types Packs/Day Years Used Date Smoking Tobacco: Former Cigarettes Smokeless Tobacco: Never Comments:quit 2019 Alcohol Use Standard Drinks/Week Comments Not Currently 0 (1 standard drink = 0.6 oz pur e alcohol) Comments No Sex and Gender Information Value Date Recorded Sex Assigned at Not on file 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 COVID-19 Symptom questionnaire was not completed today, because the patient could not be reached. This patient is being disenrolled from the phone-only version of the COVID-19 home monitoring program for the following reason: Abandoned This patient has not responded to the home monitoring phone calls for 3 days. They will be discharged from the home monitoring program. If you believe the patient would benefit from ongoing monitoring, please have the patient contact the home monitoring program to re-enroll at . R FILTERER * Telephone Encounter - Lulu Roe LPN - 11/24/2021 9:02 AM WATER FILTERER COVID Home Monitoring Unable to Reach Called patient for home monitoring MA assessment. Unable to reach patient. Patient will receive follow up call today. R FILTERER documented in this encounter Plan of Treatment Not on file documented as of this encounter Visit Diagnoses Not on filedocumented in this encounter Additional Health Concerns Infection Onset Date Last Indicated Resolved Time COVID19 11/14/2021 11/14/2021 11/24/2021 3:06 AM WATER FILTERER documented as of this encounter Care Teams Memory Care Director Relationship Specialty Start Date End Date Brandon Dumont MD PCP - General 03/26/21 Abisai Moss MD Consulting Physician General Surgery 05/14/21 Nunu Steen MD Consulting Physician Gastroenterology 05/14/21 documented as of this encounter
--- OUTSIDE RECORDS SUMMARY | 2024-10-27 10:55 | XMS_ITS | Encounter Summary ---
Author Organization [facility] Address [address] [place] [address] Care Team Providers Care Hospitality Coordinator Name Role Phone Brandon Dumont MD Primary Care Provider [phone] Abisai Moss MD Unavailable Nunu Steen MD Unavailable Reason for Visit * Auth/Cert Specialty Diagnoses / Procedures Referred By Naye alanis Referred To Contact Diagnoses RUQ abdominal pain Epigastric pain Postprandial nausea RUQ abdominal pain [R10.11] Epigastric pain [R10.13] Postprandial nausea [R11.0] Procedures FL ESOPHAGOGASTRODUODENOSCOPY TRANSORAL DIAGNOSTIC ESOPHAGOGASTRODUODENOSCOPY Referral ID Status Reason Start Date Expiration Date Visits Re quested Visits Authorized [id number] 1 1 Encounter Details Date Type Department Care Team (Late st Contact Info) Description 11/24/2022 2:03 PM PEANUT FARMER Anesthesia Event [address] [address] Samson Barnhart MD [address] [place] [address] Anesthesia Record Procedure Summary Procedure Name Responsible Anesthesiologist Anesthesia Start Time Anesthesia Stop Time ESOPHAGOGASTRODUODENOSCOPY BIOPSY Samson Barnhart MD 11/24/22 1403 11/24/22 1418 Events Date Time Event Comment 11/24/2022 1401 In Room 1403 An Start 1403 An Start Data 1403 Start Supplemental O2 1404 1410 Patient Positioned Laterally 1410 An Induction The patient was reevaluated immediately before moderate or deep sedation use and before anesthesia induction. 1410 Anesthesia Ready 1411 Proc Start 1414 Proc Fin 1414 an stop data 1416 Handoff to RN I completed my handoff to the receiving nurse during which we: 1. Patient identified 2. Responsible provider identified 3. Pertinent medical history reviewed 4. Procedure type and surgical course discussed 5. Intraoperative anesthetic management and any significant issues discussed 6. Expectations and concerns for postop period discussed 7. Questions solicited from receiving nurse 8. Patient disposition at the time of handoff: PACU 1417 Release from care 1418 Out of Room 1418 An Stop Meds Name Total lidocaine (cardiac) syringe 2 % 60 mg propofol 100 mg sodium chloride 0.9% infusion 300 mL * Agents Name O2 * Blood No blood administrations on file. Lines, Drains, and Airways Type Details Placement Removal RETIRED Surgical Site 05/11/21; 0935; Abdomen; 10/09/24 (Retired LDA, Removed/Completed by [employer] with LDA Utility); 1213 (Retired LDA, Removed/Completed by [employer] with LDA Utility) 05/11/21 0935 by Yuliya Masters RN 10/09/24 1213 by Discharge Provider, Automatic Peripheral IV Placement Date: 11/24/22; Placement Time: 1304; Catheter Size: 22 G; Orientation: Posterior, Right; Location: Hand; Site Prep: Alcohol; Inserted by: paul tavera; Insertion Attempts: 1; Patient Tolerance: Tolerated well; Removal Date: 11/24/22; Removal Time: 1511; Removal Reason: Discharge 11/24/22 1304 by Belle Almonte RN 11/24/22 1511 by Sarai Belcher RN documented in this encounter Social History Tobacco Use Types Packs/Day Years [...] on file 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 Gender Identity Not on file Sexual Orientation Not on file documented as of this encounter OR Notes * Anesthesia Postprocedure Evaluation - Laney Barroso CRNA - 11/24/2022 2:16 PM CST Patient: Joselyn Amado Procedure Summary Date: 11/24/22 [facility] / [facility] Anesthesia Start: 1403 Anesthesia Stop: Procedure: ESOPHAGOGASTRODUODENOSCOPY BIOPSY Diagnosis: RUQ abdominal pain Epigastric pain Postprandial nausea (RUQ abdominal pain [R10.11]) (Epigastric pain [R10.13]) (Postprandial nausea [R11.0]) Providers: Nunu Steen MD Responsible Provider: Samson Barnhart MD Anesthesia Type: MAC ASA Status: 2 Anesthesia Type: MAC Last vitals BP 142/92 Pulse 87 Temp 36.1 ??C (96.9 ??F) (Temporal) Resp 16 SpO2 94% Anesthesia Post Evaluation Patient location during evaluation: PACU Patient participation: complete - patient participated 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 UT FARMER * Anesthesia Preprocedure Evaluation - Samson Barnhart MD - 11/24/2022 1:04 PM CST Images from the original note were not included. Anesthesia Evaluation Joselyn Amado is a 62 y.o. female Procedure(s): ESOPHAGOGASTRODUODENOSCOPY Pre-Op Diagnosis Codes: * RUQ abdominal pain [R10.11] * Epigastric pain [R10.13] * Postprandial nausea [R11.0] HISTORY Past Medical History Neurological + Psychiatric history - anxiety Cardiovascular + Hypertension + Hyperlipidemia Patient Active Problem List Diagnosis ??? Cigarette [...] Colon cancer screening ??? Diarrhea ??? Nausea ??? RUQ abdominal pain Past Medical History: Diagnosis Date ??? Bladder spasms ??? Chronic pain 2019 ??? COVID 05/2022 ??? Gall stones ??? Hot flashes ??? Hyperlipidemia ??? Hypertension Past Surgical History: Procedure Laterality Date ??? BACK SURGERY 2016 ??? CHOLECYSTECTOMY ??? COLONOSCOPY 12/15/2021 OB History No obstetric history on file. Allergies Allergen Reactions ??? Adhesive Rash Taking? Last Dose Start Date End Date Provider albuterol HFA (ProAir HFA) 90 mcg/actuation inhaler -- 05/19/22 05/19/23 Luiza Carver NP Inhale 2 puffs every 4 (four) hours as needed for wheezing or shortness of breath atorvastatin (LIPITOR) 10 mg tablet 11/24/2022 10/15/22 -- ProviderEsdras MD benzonatate (TESSALON) 200 mg capsule Past Month 05/19/22 -- Luiza Carver NP Take 1 capsule (200 mg total) by mouth 3 (three) times a day as needed for cough cloNIDine (CATAPRES) 0.3 mg tablet More than a month -- -- ProviderEsdras MD colestipoL (COLESTID) 1 gram tablet Past Month 11/19/22 02/17/23 Jania See PA Take 1 tablet (1 g total) by mouth 2 (two) times a day as needed (diarrhea) cyclobenzaprine (FLEXERIL) 10 mg tablet More than a month 08/07/20 -- Bailey Stinson NP Take 1 tablet (10 mg total) by mouth 3 (three) times a day as needed for muscle spasms diazePAM (VALIUM) 5 mg tablet More than a month 02/28/17 -- Esdras Fish MD ergocalciferol (VITAMIN D) 50,000 unit capsule Past Month -- -- Esdras Fish MD fluticasone propionate (FLONASE) 50 mcg/actuation nasal spray Past Month 09/30/20 11/24/22 Alyce Bae, DO Administer 2 sprays into each nostril daily gabapentin (NEURONTIN) 300 mg capsule More than a month 09/03/20 -- Juan José Rehman MD Take 1 capsule (300 mg total) by mouth nightly hydrALAZINE (APRESOLINE) 25 mg tablet () More than a month 05/14/21 11/19/22 Nakia Kirk MD Take 1 tablet (25 mg total) by mouth 3 (three) times a day loratadine 10 mg capsule More than a month -- -- Esdras Fish MD losartan (COZAAR) 25 mg tablet 11/24/2022 10/08/22 -- Esdras Fish MD nicotine (NICODERM CQ) 14 mg 11/24/2022 10/08/22 -- Esdras Fish MD nortriptyline (PAMELOR) 10 mg capsule Past Week 11/19/22 02/17/23 Jania See PA Take 1 capsule (10 mg total) by mouth nightly ondansetron ODT (ZOFRAN-ODT) 8 mg disintegrating tablet Past Week 11/19/22 12/19/22 Jania See PA Take 1 tablet (8 mg total) by mouth every 8 (eight) hours as needed for nausea or vomiting oxybutynin (DITROPAN) 5 mg tablet 11/23/2022 04/16/21 -- Esdras Fish MD tapentadol ER (NUCYNTA ER) 100 mg 12 hr tablet Past Month 01/26/17 -- Esdras Fish MD venlafaxine (EFFEXOR) 75 mg tablet Past Week -- -- Esdras Fish MD Current Facility-Administered Medications: ??? ondansetron (ZOFRAN) injection 4 mg, 4 mg, intravenous, Q30 Min PRN ??? sodium chloride 0.9% flush 0.5-20 mL, 0.5-20 mL, intra-catheter, PRN ??? sodium chloride 0.9% infusion, 30 mL/hr, intravenous, Continuous ??? sodium chloride 0.9% infusion, 125 mL/hr, intravenous, Continuous Social History Tobacco Use Smoking Status Some Days ??? Packs/day: 0.75 ??? Years: 40.00 ??? Pack years: 30.00 ??? Types: Cigarettes Smokeless Tobacco Never Tobacco Comments quit 2020 ARestarted 2 mo ago after daughter . Currently on 14mg patches Alcohol Use: Unknown ??? Frequency of Alcohol Consumption: Not on file ??? Average Number of Drinks: 1 or 2 ??? Frequency of Binge Drinking: Not on file Substance and Sexual Activity Drug Use Yes ??? Types: Tobacco, Muscle relaxant Family History Problem Relation Age of Onset ??? Heart attack Mother Family history of myocardial infarction - (Added by TW Conv) ??? Heart attack Father Family history of myocardial infarction - (Added by TW Conv) Vitals: 11/24/22 1239 BP: 122/85 Pulse: 77 Resp: 18 Temp: 36.1 ??C (96.9 ??F) SpO2: 100% PT: No results found for requested labs within last 720 hours. INR: No results found for requested labs within last 720 hours. APTT: No results found for requested labs within last 720 hours. Hgb A1C: No results found for requested labs within last 720 hours. CBC RBC: No results found for requested labs within last 720 hours. RDW: No results found for requested labs within last 720 hours. MCHC: No results found for requested labs within last 720 hours. MCH: No results found for requested labs within last 720 hours. MCV: No results found for requested labs within last 720 hours. Hct: No results found for requested labs within last 720 hours. Hgb: No results found for requested labs within last 720 hours. WBC: No results found for requested labs within last 720 hours. MPV: No results found for requested labs within last 720 hours. Platelets: No results found for requested labs within last 720 hours. RDW CV: No results found for requested labs within last 720 hours. RDW Sd: No results found for requested labs within last 720 hours. BMP Glucose: No results found for requested labs within last 720 hours. Calcium: No results found for requested labs within last 720 hours. Sodium: No results found for requested labs within last 720 hours. Potassium: No results found for requested labs within last 720 hours. CO2: No results found for requested labs within last 720 hours. Chloride: No results found for requested labs within last 720 hours. BUN: No results found for requested labs within last 720 hours. Creatinine: No results found for requested labs within last 720 hours. DOS Physical Exam Medical history, medications, and allergies reviewed. Attestation: This PAT evaluation 11/24/2022. Airway Exam: Mallampati: II Cervical ROM: FROM Cardiovascular Exam: Rate: regular Rhythm: regular Pulmonary Exam: LCTA Dental Exam: Lower dentures and upper dentures Anesthesia Plan ASA 2 My patient is approved for the Anesthesia Controlled Medication protocol when under care of a TRAUMA REGISTRAR Planned anesthesia: MAC Induction: Induction: intravenous. Postoperative Plan: Patient's planned disposition post procedure is Outpatient. Informed Consent: Discussed plan with TRAUMA REGISTRAR. Anesthesia plan and risks discussed with patient. Consent and Attending signature: I and/or my designee have discussed the anesthesia plan, benefits, possible alternatives, parental presence at time of induction (if indicated), and clinically relevant risks that may include dental injury, unintentional awareness, and/or other complications. The patient and/or parent/legal guardian understand, and agree to proceed. All questions answered. UT FARMER documented in this encounter Plan of Treatment Not on file documented as of this encounter Visit Diagnoses Not on filedocumented in this encounter Administered Medications Inactive Administered Medications - up to 3 most recent administrations Medication Order MAR Action Action Date Dose Rate Site lidocaine (XYLOCAINE) 20 mg/mL (2 %) preservative free injection intravenous, As needed, Starting on Tue11/24/22 at 1410, Anesthesia Intra-op Given 11/24/2022 2:10 PM PEANUT FARMER 60 mg propofoL (DIPRIVAN) 10 mg/mL IV intravenous, As needed, Starting on Tue11/24/22 at 1410, Anesthesia Intra-op Given 11/24/2022 2:10 PM PEANUT FARMER 100 mg sodium chloride 0.9% infusion 30 mL/hr, intravenous, Continuous, Starting on Tue11/24/22 at 1315, Pre-Procedure (GI) Rate/Dose Verify 11/24/2022 2:03 PM PEANUT FARMER 30 mL/hr New Bag 11/24/2022 1:07 PM PEANUT FARMER 30 mL/hr 30 mL/hr documented in this encounter Care Teams Hospitality Coordinator Relationship Specialty Start Date End Date Brandon Dumont MD PCP - General 03/26/21 Abisai Moss MD Consulting Physician General Surgery 05/14/21 Nunu Steen MD Consulting Physician Gastroenterology 05/14/21 documented as of this encounter
--- OUTSIDE RECORDS SUMMARY | 2024-10-27 10:55 | XMS_ITS | Encounter Summary ---
Author Organization [facility] Healthcare Address [address] [place] [address] Care Team Providers Care Real Estate Accountant Name Role Phone Brandon Dumont MD Primary Care Provider [phone] Abisai Moss MD Unavailable Nunu Steen MD Unavailable [phone] Reason for Referral * Diagnostic Imaging (Routine) - Closed Specialty Diagnoses / Procedures Referred By Contac t Referred To Contact Diagnoses Pelvic and perineal pain Procedures US Pelvis W Endovaginal Hans Marie MD [address] [facility] [address] [address] Phone: tel: fax: [address] [phone] Referral ID Status Reason Start Date Expiration Date Visits Re quested Visits Authorized [id number] Closed 07/05/2022 08/04/2023 1 1 Reason for Visit * Diagnostic Imaging (Routine) - Closed Specialty Diagnoses / Procedures Referred By Contac t Referred To Contact Diagnoses Pelvic and perineal pain Procedures US Pelvis W Endovaginal Hans Marie MD [address] [facility] [address] [address] Phone: tel: fax: [address] [phone] Referral ID Status Reason Start Date Expiration Date Visits Re quested Visits Authorized [id number] Closed 07/05/2022 08/04/2023 1 1 Encounter Details Date Type Department Care Team (Latest Contact Info) Description 08/06/2022 2:23 PM CDT - 08/06/2022 11:59 PM CDT Hospital Encounter [facility] [address] [place] [address] Hans Marie MD [address] [place] [address] Pelvic and perineal pain Discharge Disposition: Discharge to home or self care Social History Tobacco Use Types Packs/Day Years Used Date Smoking Tobacco: Former Cigarettes Smokeless Tobacco: Never Comments:quit 2019 Alcohol Use Standard Drinks/Week Comments Not Currently 0 (1 standard drink = 0.6 oz pur e alcohol) Comments No Sex and Gender Information Value Date Recorded Sex Assigned at Not on file 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 US PELVIS W ENDOVAGINAL REASON FOR STUDY: ?? US PELVIS bladder pain. TECHNIQUE: Grayscale ultrasound of the pelvic contents was performed with ?? transabdominal and transvaginal ??transducer. ?? COMPARISON: CT abdomen and pelvis 05/10/2021. FINDINGS: Fluid is seen in the urinary bladder. The uterus is anteverted, this is heterogeneous measured at 8.2 by 4.5 x 6.7 cm. ??Multiple uterine fibroids are noted, some of these are calcified as seen on the prior CT. ??Examples of fibroids measure 2.8 x 2.0 x 2.6 cm. ??Multiple additional fibroids are noted. ??The endometrium is not clearly seen. Neither ovary could be demonstrated for assessment. No separate pelvic mass is demonstrated. IMPRESSION: 1. ?? Heterogeneous uterus with multiple fibroids. 2. ?? Endometrium could not be clearly demonstrated. 3. ?? Neither ovary demonstrated for assessment. THIS IS AN ELECTRONICALLY VERIFIED FINAL REPORT 08/06/2022 5:16 PM - Electronically signed by ??Jasbir Sutherland M.D. CH: CH D: ??08/06/2022 5:16 PM T: ??08/06/2022 5:16 PM Report ID: [id number] Reading Location: ??[id number] Procedure Note Jasbir Sutherland Jr., MD - 08/06/2022 EXAM DESCRIPTION: US PELVIS W ENDOVAGINAL REASON FOR STUDY: US PELVIS bladder pain. TECHNIQUE: Grayscale ultrasound of the pelvic contents was performed with transabdominal and transvaginal transducer. COMPARISON: CT abdomen and pelvis 05/10/2021. FINDINGS: Fluid is seen in the urinary bladder. The uterus is anteverted, this is heterogeneous measured at 8.2 by 4.5 x6.7 cm. Multiple uterine fibroids are noted, some of these are calcified asseen on the prior CT. Examples of fibroids measure 2.8 x 2.0 x 2.6 cm.Multiple additional fibroids are noted. The endometrium is not clearly seen. Neither ovary could be demonstrated for assessment. No separate pelvic mass is demonstrated. IMPRESSION: 1. Heterogeneous uterus with multiple fibroids. 2. Endometrium could not be clearly demonstrated. 3. Neither ovary demonstrated for assessment. THIS IS AN ELECTRONICALLY VERIFIED FINAL REPORT 08/06/2022 5:16 PM - Electronically signed by Jasbir Sutherland M.D. CH: COLBY Report ID: [id number] Reading Location: [place] [address] us Hans Marie MD IMG US PROCEDURES Final Res ult documented in this encounter Visit Diagnoses Diagnosis Pelvic and perineal pain documented in this encounter Additional Health Concerns Infection Onset Date Last Indicated Resolved Time COVID: Recovered Comment:Added based on recent COVID infection. 05/29/2022 06/07/2022 09/26/2022 3:[address] documented as of this encounter Care Teams Real Estate Accountant Relationship Specialty Start Date End Date Brandon Dumont MD PCP - General 03/26/21 Abisai Moss MD Consulting Physician General Surgery 05/14/21 Nunu Steen MD Consulting Physician Gastroenterology 05/14/21 documented as of this encounter
--- OUTSIDE RECORDS SUMMARY | 2024-10-27 10:55 | XMS_ITS | Encounter Summary ---
Author Organization [facility] Group Address [address] [facility] [address] [place] [address] Care Team Providers Care Sales Training Representative Name Role Phone Brandon Dumont MD Primary Care Provider [phone] Abisai Moss MD Unavailable Nunu Steen MD Unavailable [phone] Reason for Visit * Reason Onset Date Comments Covid-19 Home Monitoring 11/19/2021 daily c all Encounter Details Date Type Department Care Team (Late st Contact Info) Description 11/19/2021 Telephone [facility] Accountable Care Organization [address] [place] [address] Jania Garcia MA [address] [place] [address] [address] [place] [address] Covid-19 Home Monitoring (daily call) Social History Tobacco Use Types Packs/Day Years Used Date Smoking Tobacco: Former Cigarettes Smokeless Tobacco: Never Comments:quit 2019 Alcohol Use Standard Drinks/Week Comments Not Currently 0 (1 standard drink = 0.6 oz pur e alcohol) Comments No Sex and Gender Information Value Date Recorded Sex Assigned at Not on file 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 : No This patient has enrolled in the PHONE ONLY version of COVID-19 Home Monitoring Program. COVID-19 Symptom questionnaire was completed today. Symptoms were addressed to be Mild. Escalation was not needed. Next Program Call Due: 11/20 EL POST TRUCK DRIVER documented in this encounter Plan of Treatment Not on file documented as of this encounter Visit Diagnoses Not on filedocumented in this encounter Additional Health Concerns Infection Onset Date Last Indicated Resolved Time COVID19 11/14/2021 11/14/2021 11/24/2021 3:06 AM PARCEL POST TRUCK DRIVER documented as of this encounter Care Teams Sales Training Representative Relationship Specialty Start Date End Date Brandon Dumont MD PCP - General 03/26/21 Abisai Moss MD Consulting Physician General Surgery 05/14/21 Nunu Steen MD Consulting Physician Gastroenterology 05/14/21 documented as of this encounter
--- OUTSIDE RECORDS SUMMARY | 2024-10-27 10:55 | XMS_ITS | Encounter Summary ---
Author Organization [facility] Address [address] [facility] [address] [place] [address] Care Team Providers Care Manager Of Recruiting Name Role Phone Brandon Dumont MD Primary Care Provider [phone] Abisai Moss MD Unavailable Nunu Steen MD Unavailable [phone] Encounter Details Date Type Department Care Team (Late st Contact Info) Description 05/26/2022 Telephone [facility] Gastroenterology at [address], [place] [address] Ginna Diaz MA Social History Tobacco Use Types Packs/Day Years Used Date Smoking Tobacco: Former Cigarettes Smokeless Tobacco: Never Comments:quit 2020 Alcohol Use Standard Drinks/Week Comments Not Currently 0 (1 standard drink = 0.6 oz pur e alcohol) Comments No Sex and Gender Information Value Date Recorded Sex Assigned at Not on file 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 Asked patient to return a call to the office after 8:30 am documented in this encounter Plan of Treatment Not on file documented as of this encounter Visit Diagnoses Not on filedocumented in this encounter Additional Health Concerns Infection Onset Date Last Indicated Resolved Time COVID19 05/19/2022 05/19/2022 05/29/2022 3:05 AM CDT documented as of this encounter Care Teams Manager Of Recruiting Relationship Specialty Start Date End Date Brandon Dumont MD PCP - General 03/26/21 Abisai Moss MD Consulting Physician General Surgery 05/14/21 Nunu Steen MD Consulting Physician Gastroenterology 05/14/21 documented as of this encounter
--- OUTSIDE RECORDS SUMMARY | 2024-10-27 10:55 | XMS_ITS | Encounter Summary ---
Author Organization [facility] Medical Group Address [address] [facility] [address] [place] [address] Care Team Providers Care Geological Science Teacher Name Role Phone Brandon Dumont MD Primary Care Provider [phone] Abisai Moss MD Unavailable Nunu Steen MD Unavailable [phone] Reason for Visit * Reason Onset Date Comments Covid-19 Home Monitoring 05/23/2022 Encounter Details Date Type Department Care Team (Late st Contact Info) Description 05/23/2022 Telephone [facility] Accountable Care Organization [address] [place] [address] Dionne Coker CMA [address] [place] [address] [address] [place] [address] Covid-19 Home Monitoring Social History Tobacco Use Types Packs/Day Years Used Date Smoking Tobacco: Former Cigarettes Smokeless Tobacco: Never Comments:quit 2019 Alcohol Use Standard Drinks/Week Comments Not Currently 0 (1 standard drink = 0.6 oz pur e alcohol) Comments No Sex and Gender Information Value Date Recorded Sex Assigned at Not on file 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 Unable to reach patient. Patient will receive follow up call tomorrow. documented in this encounter Plan of Treatment Not on file documented as of this encounter Visit Diagnoses Not on filedocumented in this encounter Additional Health Concerns Infection Onset Date Last Indicated Resolved Time COVID19 05/19/2022 05/19/2022 05/29/2022 3:05 AM CDT documented as of this encounter Care Teams Geological Science Teacher Relationship Specialty Start Date End Date Brandon Dumont MD PCP - General 03/26/21 Abisai Moss MD Consulting Physician General Surgery 05/14/21 Nunu Steen MD Consulting Physician Gastroenterology 05/14/21 documented as of this encounter
--- OUTSIDE RECORDS SUMMARY | 2024-10-27 10:55 | XMS_ITS | Encounter Summary ---
Author Organization [facility] Address [address] [facility] [address] [place] [address] Care Team Providers Care Insurance Marketing Specialist Name Role Phone Brandon Dumont MD Primary Care Provider [phone] Abisai Moss MD Unavailable Nunu Steen MD Unavailable [phone] Reason for Visit * Reason Onset Date Comments Covid-19 Home Monitoring 11/16/2021 daily c all Encounter Details Date Type Department Care Team (Late st Contact Info) Description 11/16/[address] 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 COVID-19 Symptom questionnaire was not completed today, because the patient could not be reached. [facility] day 1 Next Program Call Due: 11/17 NCIAL AID ADVISOR documented in this encounter Plan of Treatment Not on file documented as of this encounter Visit Diagnoses Not on filedocumented in this encounter Additional Health Concerns Infection Onset Date Last Indicated Resolved Time COVID19 11/14/2021 11/14/2021 11/24/2021 3:06 AM FINANCIAL AID ADVISOR documented as of this encounter Care Teams Insurance Marketing Specialist Relationship Specialty Start Date End Date Brandon Dumont MD PCP - General 03/26/21 Abisai Moss MD Consulting Physician General Surgery 05/14/21 Nunu Steen MD Consulting Physician Gastroenterology 05/14/21 documented as of this encounter
--- OUTSIDE RECORDS SUMMARY | 2024-10-27 10:55 | XMS_ITS | Encounter Summary ---
Author Organization [facility] Medical Group Address [address] [facility] [address] [place] [address] Care Team Providers Care Inspector Hairspring Name Role Phone Brandon Dumont MD Primary Care Provider [phone] Abisai Moss MD Unavailable Nunu Steen MD Unavailable [phone] Reason for Visit * Reason Comments Cough Sx x 5 days: Fatigue , sinus pressure, left ear pain, productive cough, SOB, and headaches. 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 Gender Identity Not on file Sexual Orientation Not on file documented as of this encounter Last Filed Vital Signs Vital Sign Reading Time Taken Comments Blood Pressure 116/78 03/26/2022 7:31 PM CDT Pulse 103 03/26/2022 7:31 PM CDT Temperature 36.7 ??C (98.1 ??F) 03/26/2022 7:31 PM CD T Respiratory Rate 22 03/26/2022 7:31 PM CDT Oxygen Saturation 95% 03/26/2022 7:31 PM CDT Inhaled Oxygen Concentration - - Weight 60.3 kg (133 lb) 03/26/2022 7:31 PM CDT Height 165.1 cm (5' 5 ) 03/26/2022 7:31 PM CDT Body Mass Index 22.13 03/26/2022 7:31 PM CDT documented in this encounter Patient Instructions * Patient Instructions* Paulette Levine PA - 03/26/2022 7:57 PM CDT Take the medications as prescribed. Make sure to drink plenty of fluids and get plenty of rest. You can take Tylenol or ibuprofen as directed for fever and aches/pains. You can use Sudafed, Mucinex, Flonase, a Neti pot, and a humidifier as directed for congestion. Make sure to drink plenty of fluids to thin your secretions. You can return to work when your symptoms are improving and you have gone 24 hours without a fever without the use of medications. Follow-up with your primary care provider. Go to the ER if you develop chest pain or any other concerning symptoms. documented in this encounter Ordered Prescriptions Prescription Sig Dispense Quantity Refills Last Filled Start Date End Date benzonatate (TESSALON) 100 mg capsuleIndications :Cough Take 1 capsule (100 mg total) by mouth 3 (three) times a day as needed for cough 42 capsule 03/26/2022 2 methylPREDNISolone (MEDROL DOSEPACK) 4 mg DosepackIndication s:Influenza A Take as directed on package. 21 tablet 03/26/2022 2 albuterol HFA (ProAir HFA) 90 mcg/actuation inhalerIndications :Influenza A Inhale 2 puffs every 4 (four) hours as needed for wheezing or shortness of breath 8.5 g 03/26/2022 2 documented in this encounter Progress Notes * Paulette Levine, VENESSA - 03/26/2022 7:30 PM CDT Images from the original note were not included. Subjective/Objective Patient ID: Joselyn Amado is a 61 y.o. female. Chief Complaint Cough (Sx x 5 days: Fatigue, sinus pressure, left ear pain, productive cough, SOB, and headaches.) Patient is a 61-year-old female who presents for evaluation of fatigue, left ear pain, sinus pressure, productive cough, shortness of breath, and a frontal headache x 5 days. She denies chest pain, lower extremity edema, sore throat, or any other symptoms. She has received her COVID vaccines and denies known COVID exposure. Patient states that she used a family member's albuterol inhaler and it gave her some relief of her cough and shortness of breath. Review of Systems Constitutional: Positive for fatigue. Negative for chills and fever. HENT: Positive for ear pain and sinus pressure. Negative for congestion, postnasal drip, rhinorrheaand sore throat. Eyes: Negative for discharge. Respiratory: Positive for cough and shortness of breath. Cardiovascular: Negative for chest pain. Gastrointestinal: Negative for diarrhea, nausea and vomiting. Musculoskeletal: Negative for myalgias. Neurological: Negative for headaches. Physical Exam Constitutional: General: She is not in acute distress. Appearance: Normal appearance. She is normal weight. She is not ill-appearing or toxic-appearing. HENT: Head: Normocephalic. Right Ear: Tympanic membrane, ear canal and external ear normal. Left Ear: Tympanic membrane, ear canal and external ear normal. Nose: Nose normal. Eyes: General: Lids are normal. Extraocular Movements: Extraocular movements intact. Conjunctiva/sclera: Conjunctivae normal. Pupils: Pupils are equal, round, and reactive to light. Cardiovascular: Rate and Rhythm: Normal rate and regular rhythm. Heart sounds: Normal heart sounds. Pulmonary: Effort: Pulmonary effort is normal. No respiratory distress. Breath sounds: Normal air entry. No stridor. No rhonchi or rales. Musculoskeletal: General: Normal range of motion. Cervical back: Normal range of motion and neck supple. Skin: General: Skin is warm and dry. Neurological: General: No focal deficit present. Mental Status: She is alert and oriented to person, place, and time. Mental status is at baseline. Psychiatric: Mood and Affect: Mood normal. Behavior: Behavior normal. Vitals: 03/26/22 1931 BP: 116/78 Pulse: 103 Resp: 22 Temp: 36.7 ??C (98.1 ??F) TempSrc: Oral SpO2: 95% Weight: 60.3 kg (133 lb) Height: 165.1 cm (5' 5 ) Assessment/Plan Take the medications as prescribed. Make sure to drink plenty of fluids and get plenty of rest. You can take Tylenol or ibuprofen as directed for fever and aches/pains. You can use Sudafed, Mucinex, Flonase, a Neti pot, and a humidifier as directed for congestion. Make sure to drink plenty of fluids to thin your secretions. You can return to work when your symptoms are improving and you have gone 24 hours without a fever without the use of medications. Follow-up with your primary care provider. Go to the ER if you develop chest pain or any other concerning symptoms. Diagnoses and all orders for this visit: Influenza A (Primary) - POCT influenza A/B - COVID-19 POC - albuterol HFA (ProAir HFA) 90 mcg/actuation inhaler; Inhale 2 puffs every 4 (four) hours as needed for wheezing or shortness of breath - methylPREDNISolone (MEDROL DOSEPACK) 4 mg Dosepack; Take as directed on package. - benzonatate (TESSALON) 100 mg capsule; Take 1 capsule (100 mg total) by mouth 3 (three) times a day as needed for cough Recent Results (from the past 4 hour(s)) POCT influenza A/B Collection Time: 03/26/22 7:50 PM Result Value Ref Range Rapid Influenza A Ag Positive (A) Negative, Invalid Rapid Influenza B Ag Negative Negative, Invalid COVID-19 POC Collection Time: 03/26/22 7:50 PM Result Value Ref Range COVID-19 Ag POC (BD Veritor) Presumptive Negative Presumptive Negative, Invalid Patient Education: Disposition ??? Treatment plan including expectations, follow up, and return precautions discussed with patient/parent, verbalizes understanding. ??? Medication dosage, use, and potential adverse reactions discussed with patient/parent. ??? Advised to follow up with PCP if symptoms do not resolve as expected or sooner if condition worsens. ??? Signs/symptoms warranting ER evaluation reviewed. ??? Patient and/or guardian was given an opportunity to ask questions, questions answered. VENESSA Ladd PA documented in this encounter Plan of Treatment Not on file documented as of this encounter Procedures Procedure Name Priority Date/Time Associated Diagnosis Comments COVID-19 POC Routine 03/26/2022 7:50 PM CDT Influenza A POCT INFLUENZA A/B Routine 03/26/2022 7: 50 PM CDT Influenza A documented in this encounter Results * COVID-19 POC (03/26/2022 7:50 PM CDT) Pathologist [facility] COVID-19 Ag POC (BD Veritor) Presumptive Negative Presumptive Negative, Invalid [facility] Nasal 03/26/2022 7:50 PM CDT Paulette CLIFFORD POINT OF CARE TEST ORDERABLES Final Result Performing Organization Address City/State/[facility] Co de Phone Number [facility] [address] [place] [address] * (ABNORMAL) POCT influenza A/B (03/26/2022 7:50 PM CDT) Pathologist [facility] Rapid Influenza A Ag Positive(A) Negative, Invalid Rapid Influenza B Ag Negative Negative, Invalid Nasal 03/26/2022 7:50 PM CDT Paulette CLIFFORD POINT OF CARE TEST ORDERABLES Final Result documented in this encounter Visit Diagnoses Diagnosis Influenza A- Primary Influenza with other respiratory manifestations documented in this encounter Additional Health Concerns Infection Onset Date Last Indicated Resolved Time COVID: Suspected 03/26/2022 03/26/2022 03/26/2022 7:51 PM CDT Influenza, adult 03/26/2022 03/26/2022 04/02/2022 3:05 AM CDT documented as of this encounter Care Teams Inspector Hairspring Relationship Specialty Start Date End Date Brandon Dumont MD PCP - General 03/26/21 Abisai Moss MD Consulting Physician General Surgery 05/14/21 Nunu Steen MD Consulting Physician Gastroenterology 05/14/21 documented as of this encounter
--- OUTSIDE RECORDS SUMMARY | 2024-10-27 10:55 | XMS_ITS | Encounter Summary ---
Author Organization [facility] Healthcare Address [address] [place] [address] Care Team Providers Care Oracle Fusion Middleware Architect Name Role Phone Brandon Dumont MD Primary Care Provider [phone] Abisai Moss MD Unavailable Nunu Steen MD Unavailable [phone] Reason for Referral * Cardiology (Routine) - Closed Specialty Diagnoses / Procedures Referred By Contac t Referred To Contact Diagnoses Atypical chest pain Procedures ECG 12 lead Jennifer Woodard NP [address] [address] Phone: tel: fax: [address] [phone] Referral ID Status Reason Start Date Expiration Date Visits Re quested Visits Authorized [id number] Closed 11/10/2021 12/10/2022 1 1 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 Reason for Visit * Cardiology (Routine) - Closed Specialty Diagnoses / Procedures Referred By Contac t Referred To Contact Diagnoses Atypical chest pain Procedures ECG 12 lead Jennifer Woodard NP [address] [address] Phone: tel: fax: [address] [phone] Referral ID Status Reason Start Date Expiration Date Visits Re quested Visits Authorized [id number] Closed 11/10/2021 12/10/2022 1 1 Encounter Details Date Type Department Care Team (Latest Contact Info) Description 01/08/2022 3:45 PM GREE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 - 01/08/2022 11:59 PM GREE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 Hospital Encounter [facility] Cardiology [address] [place] [address] Funmi Claire MD [address] [facility] [address] [place] [address] Jennifer Woodard NP [address] [address] Atypical chest pain Discharge Disposition: Discharge to home or [...] on file Legal Sex Female 12:50 AM GREE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 Gender Identity Not on file Sexual Orientation Not on file documented as of this encounter Medications at Time of Discharge cloNIDine (CATAPRES) 0.3 mg tablet Take 1 [...] Procedure Name Priority Date/Time Associated Diagnosis Comments ECG 12-LEAD Routine 01/08/2022 4:00 PM GREE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 Atypical chest pain documented in this encounter Results * ECG 12 lead (01/08/2022 4:00 PM GREE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) 01/08/2022 3:52 PM GREE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 Narrative [facility] - 01/09/2022 10:14 AM GREE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 Vent Rate: 69 bpm RR Interval: 868 msec [place] Interval: 164 msec QRS Duration: 82 msec QT Interval: 398 msec QTC Interval: 416 msec P-R-T [place]: 40 - 51 - 5 degrees SINUS RHYTHM POSSIBLE LEFT ATRIAL ENLARGEMENT ??[-0.1mV P WAVE IN V1/V2] NONSPECIFIC T-WAVE ABNORMALITY BORDERLINE ECG Electronically Signed By: Cooper Clements MD, [facility] Jennifer Woodard NP ECG ORDERABLES Final Result [facility] documented in this encounter Visit Diagnoses Diagnosis Atypical chest pain Other chest pain documented in this encounter Additional Health Concerns Infection Onset Date Last Indicated Resolved Time COVID: Recovered Comment:Added based on recent COVID infection. 11/24/2021 12/14/2021 03/24/2022 3:05 AM C DT documented as of this encounter Care Teams Oracle Fusion Middleware Architect Relationship Specialty Start Date End Date Brandon Dumont MD PCP - General 03/26/21 Abisai Moss MD Consulting Physician General Surgery 05/14/21 Nunu Steen MD Consulting Physician Gastroenterology 05/14/21 documented as of this encounter
--- OUTSIDE RECORDS SUMMARY | 2024-10-27 10:55 | XMS_ITS | Encounter Summary ---
Author Organization [facility] Medical Group Address [address] [place] [address] Care Team Providers Care Pull Tab Dealer Name Role Phone Brandon Dumont MD Primary Care Provider [phone] Abisai Moss MD Unavailable Nunu Steen MD Unavailable [phone] Reason for Visit * Reason Onset Date Comments Covid-19 Home Monitoring 11/18/2021 daily c all Encounter Details Date Type Department Care Team (Late st Contact Info) Description 11/18/2021 Telephone [facility] Accountable Care Organization [address] [place] [id number] Jania Garcia MA [address] [place] [address] [address] [place] [address] Covid-19 Home Monitoring (daily call) Social History Tobacco Use Types Packs/Day Years Used Date Smoking Tobacco: Former Cigarettes Smokeless Tobacco: Never Comments:quit 2019 Alcohol Use Standard Drinks/Week Comments Not Currently 0 (1 standard drink = 0.6 oz pur e alcohol) Comments No Sex and Gender Information Value Date Recorded Sex Assigned at Not on file Legal Sex 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 Unable to reach patient. Patient will receive follow up call tomorrow. C SUPERVISOR documented in this encounter Plan of Treatment Not on file documented as of this encounter Visit Diagnoses Not on filedocumented in this encounter Additional Health Concerns Infection Onset Date Last Indicated Resolved Time COVID19 11/14/2021 11/14/2021 11/24/2021 3:06 AM MUSIC SUPERVISOR documented as of this encounter Care Teams Pull Tab Dealer Relationship Specialty Start Date End Date Brandon Dumont MD PCP - General 03/26/21 Abisai Moss MD Consulting Physician General Surgery 05/14/21 Nunu Steen MD Consulting Physician Gastroenterology 05/14/21 documented as of this encounter
--- OUTSIDE RECORDS SUMMARY | 2024-10-27 10:55 | XMS_ITS | Encounter Summary ---
Author Organization [facility] Healthcare Address [address] [place] [address] Care Team Providers Care Help Desk Support Specialist Name Role Phone Brandon Dumont MD Primary Care Provider [phone] Abisai Moss MD Unavailable Nunu Steen MD Unavailable [phone] Reason for Visit * Auth/Cert Specialty Diagnoses / Procedures Referred By Naye t Referred To Contact Diagnoses RUQ abdominal pain Epigastric pain Postprandial nausea RUQ abdominal pain [R10.11] Epigastric pain [R10.13] Postprandial nausea [R11.0] Procedures MA ESOPHAGOGASTRODUODENOSCOPY TRANSORAL DIAGNOSTIC ESOPHAGOGASTRODUODENOSCOPY Referral ID Status Reason Start Date Expiration Date Visits Re quested Visits Authorized [id number] 1 1 Encounter Details Date Type Department Care Team (Latest Contact Info) Description 11/24/2022 12:25 PM NUCLEAR REACTOR ENGINEER - 11/24/2022 3:23 PM NUCLEAR REACTOR ENGINEER Hospital Encounter [facility] [address] [place] [address] Nunu Steen MD [address] [place] [id number] RUQ abdominal pain; Epigastric pain; Postprandial nausea [...] on file Legal Sex Female 12:50 AM NUCLEAR REACTOR ENGINEER Gender Identity Not on file Sexual Orientation Not on file documented as of this encounter Last Filed Vital Signs Vital Sign Reading Time Taken Comments Blood Pressure 158/78 11/24/2022 2:50 PM NUCLEAR REACTOR ENGINEER Pulse 69 11/24/2022 2:50 PM NUCLEAR REACTOR ENGINEER Temperature 36.2 ??C (97.1 ??F) 11/24/2022 2:50 PM CS T Respiratory Rate 16 11/24/2022 2:50 PM NUCLEAR REACTOR ENGINEER Oxygen Saturation 100% 11/24/2022 2:50 PM NUCLEAR REACTOR ENGINEER Inhaled Oxygen Concentration - - Weight 59 kg (130 lb) 11/24/2022 12:39 PM NUCLEAR REACTOR ENGINEER Height 165.1 cm (5' 5 ) 11/24/2022 12:39 PM NUCLEAR REACTOR ENGINEER Body Mass Index 21.63 11/24/2022 12:39 PM NUCLEAR REACTOR ENGINEER documented in this encounter Medications at Time of Discharge [...] or self care documented in this encounter H&P Notes * Nunu Steen MD - 11/24/2022 2:23 PM CST History and Physical Date of visit: 11/24/2022 Subjective: Patient is a 62 y.o. female presented for evaluation for nausea, abdominal pain, weight loss over the last 1 or 2 years. She had previous ERCP for sphincter of Oddi dysfunction. Previous cholecystectomy. Imaging showed 2 small 3 mm cyst in the head of the pancreas likely of no clinical significance Past Medical History: Diagnosis Date Bladder spasms Chronic pain 2019 COVID 05/2022 Gall stones Hot flashes Hyperlipidemia Hypertension Past Surgical History: Procedure Laterality Date BACK SURGERY 2017 CHOLECYSTECTOMY COLONOSCOPY 12/15/2021 Medications Prior to Admission Medication Sig Dispense Refill Last Dose atorvastatin (LIPITOR) 10 mg tablet Take 10 mg by mouth daily 11/24/2022 benzonatate (TESSALON) 200 mg capsule Take 1 capsule (200 mg total) by mouth 3 (three) times a day as needed for cough 30 capsule 0 Past Month colestipoL (COLESTID) 1 gram tablet Take 1 tablet (1 g total) by mouth 2 (two) times a day as needed (diarrhea) 60 tablet 0 Past Month ergocalciferol (VITAMIN D) 50,000 unit capsule Past Month fluticasone propionate (FLONASE) 50 mcg/actuation nasal spray Administer 2 sprays into each nostrildaily 16 g 11 Past Month losartan (COZAAR) 25 mg tablet Take 25 mg by mouth daily 11/24/2022 nicotine (NICODERM CQ) 14 mg 11/24/2022 nortriptyline (PAMELOR) 10 mg capsule Take 1 capsule (10 mg total) by mouth nightly 30 capsule 2 Past Week ondansetron ODT (ZOFRAN-ODT) 8 mg disintegrating tablet Take 1 tablet (8 mg total) by mouth every 8(eight) hours as needed for nausea or vomiting 30 tablet 0 Past Week oxybutynin (DITROPAN) 5 mg tablet 11/23/2022 tapentadol ER (NUCYNTA ER) 100 mg 12 hr tablet Take 100 mg by mouth 2 times daily Past Month venlafaxine (EFFEXOR) 75 mg tablet Take 75 mg by mouth nightly Past Week albuterol HFA (ProAir HFA) 90 mcg/actuation inhaler Inhale 2 puffs every 4 (four) hours as needed for wheezing or shortness of breath 8.5 g 0 cloNIDine (CATAPRES) 0.3 mg tablet Take 0.3 mg by mouth daily More than a month cyclobenzaprine (FLEXERIL) 10 mg tablet Take 1 tablet (10 mg total) by mouth 3 (three) times a day as needed for muscle spasms 12 tablet 0 More than a month diazePAM (VALIUM) 5 mg tablet Take 5 mg by mouth 3 (three) times a day as needed More than a month gabapentin (NEURONTIN) 300 mg capsule Take 1 capsule (300 mg total) by mouth nightly 90 capsule 1 More than a month hydrALAZINE (APRESOLINE) 25 mg tablet Take 1 tablet (25 mg total) by mouth 3 (three) times a day 90tablet 11 More than a month loratadine 10 mg capsule Take by mouth More than a month Allergies Allergen Reactions Adhesive Rash Social History Tobacco Use Smoking status: Some Days Packs/day: 0.75 Years: 40.00 Pack years: 30.00 Types: Cigarettes Smokeless tobacco: Never Tobacco comments: quit 2019 ARestarted 2 mo ago after daughter . Currently on 14mg patches Substance and Sexual Activity Drug use: Yes Types: Tobacco, Muscle relaxant Sexual activity: Defer Alcohol Use: Unknown Frequency of Alcohol Consumption: Not on file Average Number of Drinks: 1 or 2 Frequency of Binge Drinking: Not on file Family History Problem Relation Age of Onset Heart attack Mother Family history of myocardial infarction - (Added by TW Conv) Heart attack Father Family history of myocardial infarction - (Added by TW Conv) Physical Exam: Patient is awake and answers well. Eyes: no jaundice. Lungs: CTA anteriorly. ENT: no mouth ulcers. Abdomen: soft, no distention, no tenderness, bowel sounds positive. Extremities: no edema. Skin: no rash. GI IMPRESSION: Dyspepsia and nausea and abdominal pain after meals GI PLAN/RECOMMENDATIONS: EGD Nunu Steen MD EAR REACTOR ENGINEER documented in this encounter Procedure Notes * Nunu Steen MD - 11/24/2022 12:52 PM CSTAssociated Order(s): E[facility] Patient Name: Joselyn Amado Procedure Date: 11/24/2022 12:52 PM Date of : 1960 Admit Type: Outpatient Age: 62 Gender: Female Attending MD: Nunu Steen M.D. Room: [facility] END[facility]COPY ROOM 1 Note Status: Finalized Patient Profile: This is a 62 year old female. c/o nausea, abdominal pain for almost 2 years, had cholecystectomy and ERCP 2 years ago. lost 17-20 pounds over 2 years. Procedure: Upper GI endoscopy Indications: Functional Dyspepsia Referring MD: Brandon Dumont M.D. Providers: Nunu Steen M.D. Impression: - Normal examined duodenum. - Mild diffuse gastropathy Biopsied. - Normal esophagus. Recommendation: - Await pathology results. - Continue present medications. - Return to GI office as previously scheduled. Refer for complete ENT evaluation of the hypopharynx area Medicines: Monitored Anesthesia Care Complications: No immediate complications. Estimated Blood Loss: Estimated blood loss: none. Procedure: Pre-Anesthesia Assessment: - Prior to the procedure, a History and Physical was performed, and patient medications and allergies were reviewed. The patient's tolerance of previous anesthesia was also reviewed. The risks and benefits of the procedure and the sedation options and risks were discussed with the patient. All questions were answered, and informed consent was obtained. Prior Anticoagulants: The patient has taken no anticoagulant or antiplatelet agents. ASA Grade Assessment: III - A patient with severe systemic disease. After reviewing the risks and benefits, the patient was deemed in satisfactory condition to undergo the procedure. The benefits, risks, and alternatives to the procedure and sedation were discussed and informed consent was obtained. The scope was passed under direct vision. The Endoscope GIF-H190 [id number] was introduced through the mouth, and advanced to the second part of duodenum. The upper GI endoscopy was accomplished without difficulty. The patient tolerated the procedure well. Findings: The examined duodenum was normal. Mucosal villous pattern normal. Diffuse mildly erythematous mucosa without bleeding was found in the gastric body and in the gastric antrum suggestive of mild gastropathy. Biopsies were taken with a cold forceps for histology. Retroflexion in the stomach in the gastric fundus and cardia appeared normal. The examined esophagus was normal. The GE junction was normal Thickened mucosa noted in the arytenoid cartilages and perform sinuses. Electronically signed by Nunu Steen M.D. Nunu Steen M.D. 11/24/2022 2:32:53 PM Number of Addenda: 0 Note Initiated On: 11/24/2022 12:52 PM Procedure Code(s): --- Professional --- 31500, Esophagogastroduodenoscopy, flexible, transoral; with biopsy, single or multiple Diagnosis Code(s): --- Professional --- K31.89, Other diseases of stomach and duodenum K30, Functional dyspepsia CPT copyright 2020 [employer]. All rights reserved. The codes documented in this report are preliminary and upon flat screen worker review may be revised to meet current compliance requirements. Recognized by the [employer] for promoting quality in endoscopy EAR REACTOR ENGINEER documented in this encounter Miscellaneous Notes * Perioperative Nursing Note - Sarai BelcherDEANN - 11/24/2022 2:59 PM NUCLEAR REACTOR ENGINEER 1450-Dr Steen at bedside. Pt to follow up with ENT doctor. Continue home medication. EAR REACTOR ENGINEER documented in this encounter Plan of Treatment Not on file documented as of this encounter Procedures Procedure Name Priority Date/Time Associated Diagnosis Comments ESOPHAGOGASTRODUODENOSCOPY BIOPSY 11/24/2022 1:56 PM NUCLEAR REACTOR ENGINEER RUQ abdominal pain Epigastric pain Postprandial nausea EGD 11/24/2022 12:52 PM NUCLEAR REACTOR ENGINEER SURGICAL PATHOLOGY STAT 11/24/2022 9:56 AM NUCLEAR REACTOR ENGINEER RUQ abdominal pain Epigastric pain Postprandial nausea documented in this encounter Results * EGD (11/24/2022 12:52 PM NUCLEAR REACTOR ENGINEER) Anatomical Region Laterality Modality Other Narrative Procedure Note Nunu Steen MD - 11/24/2022 12:52 PM CST [facility] Patient Name: Joselyn Amado Procedure Date: 11/24/2022 12:52 PM Date of : 1960 Admit Type: Outpatient Age: 62 Gender: Female Attending MD: Nunu Steen M.D. Room: [facility] ENDOSCOPY ROOM 1 Note Status: Finalized Patient Profile: This is a 62 year old female. c/o nausea, abdominal pain for almost 2 years, had cholecystectomy andERCP 2 years ago. lost 17-20 pounds over 2 years. Procedure: Upper GI endoscopy Indications: Functional Dyspepsia Referring MD: Brandon Dumont M.D. Providers: Nunu Steen M.D. Impression: - Normal examined duodenum. - Mild diffuse gastropathy Biopsied. - Normal esophagus. Recommendation: - Await pathology results. - Continue present medications. - Return to GI office as previously scheduled.Refer for complete ENT evaluation of the hypopharynxarea Medicines: Monitored Anesthesia Care Complications: No immediate [...] obtained. Prior Anticoagulants: The patient has taken noanticoagulant or antiplatelet agents. ASA Grade Assessment: III -A patient with severe systemic disease. Afterreviewing the risks and benefits, the patient was deemed in satisfactory condition to undergo the procedure. The benefits, risks, and alternatives to theprocedure and sedation were discussed and informed consentwas obtained. The scope was passed under direct vision. The Endoscope GIF-H190 [id number] was introduced through the mouth, and advanced to the second partof duodenum. The upper GI endoscopy was accomplished without difficulty. The patient tolerated the procedure well. Findings: The examined duodenum was normal. Mucosal villous pattern normal. Diffuse mildly erythematous mucosa without bleeding was found in the gastric body and in the gastric antrum suggestive of mildgastropathy. Biopsies were taken with a cold forceps for histology. Retroflexionin the stomach in the gastric fundus and cardia appeared normal. The examined esophagus was normal. The GE junction was normal Thickened mucosa noted in the arytenoid cartilages and perform sinuses. Electronically signed by Nunu Steen M.D. Nunu Steen M.D. 11/24/2022 2:32:53 PM Number of Addenda: 0 Note Initiated On: 11/24/2022 12:52 PM Procedure Code(s): --- Professional --- 91964, Esophagogastroduodenoscopy, flexible, transoral; with biopsy, single or multiple Diagnosis Code(s): --- Professional --- K31.89, Other diseases of stomach and duodenum K30, Functional dyspepsia CPT copyright 2020 [employer]. All rights reserved. The codes documented in this report are preliminary and upon flat screen worker reviewmay be revised to meet current compliance requirements. Recognized by the [employer] for promoting quality in endoscopy Nunu Steen MD ENDOSCOPY PROCEDURES Final Result * Surgical pathology (11/24/2022 9:56 AM NUCLEAR REACTOR ENGINEER) Tissue (Gastric/Stomach biopsy) 11/24/2022 2:16 PM NUCLEAR REACTOR ENGINEER Narrative PATHOLOGY [facility] ([facility] TIBUR[facility]) - 11/26/2022 3:14 PM NUCLEAR REACTOR ENGINEER EPIC results best viewed via link to PDF [facility] Department of Pathology [address] [place] [address] Note to Patients: This report may contain a detailed description of human tissue sent by a health care provider to the laboratory for pathologic evaluation. The content of this report is essential for diagnosis and may provide important critical findings. This information may be unfamiliar to patients to review without a medical professional present. It is advised that the patient review this report in the presence of a health care provider who can answer questions and explain the details. Final Report Patient Name: ??KARONJuancarlos JOSELYN L. Address: ??[facility], ??[place], [place] ??[address] Gender: ??F : ??1960 (Age: 62) Service: ??Gastro Location: ??[facility] Hospital #: ??[id number] Patient Type: ??[facility] SDS Accession # ?[id number] Taken: ??11/24/2022 Received: ??11/25/2022 Accessioned: ??11/25/2022 Reported: ??11/26/2022 Physician(s):Dr. Nunu Steen M.D. Diagnosis: Gastric, biopsy: ? - Gastric mucosa with erosion and reactive/regenerative alterations. ? - Negative for intestinal metaplasia, dysplasia, or malignancy. ? - Negative Helicobacter immunostain. Bryon Kasper MD Report Electronically Reviewed and Signed Out By ??Bryon Kasper MD ??11/26/2022 15:14:11 Specimen(s) Received: A: Gastric biopsy Microscopic Description: Microscopic examination shows gastric mucosa with erosion and reactive/regenerative alterations. There is no evidence of intestinal metaplasia, dysplasia, or malignancy. ??Mild chronic inactive inflammation consisting of lymphocytes and plasma cells is also noted. ??No definitive Helicobacter organisms are seen on routine H&E staining. ??A Helicobacter immunostain is performed with appropriately reactive controls on block A1 and is negative. Clinical History: RUQ abdominal pain. ??Epigastric pain. ??Postprandial nausea. ??EGD. ?? Gross Description: The specimen is submitted in a single formalin filled container labeled JOSELYN WOODY and gastric biopsy . ??It is 3 barahona 1-3 mm fragments. ??All in one cassette. Ca Funk R.N., P.A./Freddie Salomon MD PhD REPORT IMAGES AND SCANNED DOCUMENTS, IF INCLUDED, ONLY VIEWABLE IN PDF VERSION OF REPORT The performance characteristics of some immunohistochemical stains, fluorescence in-situ hybridization tests and immunophenotyping by flow cytometry cited in this report (if any) were determined by the Surgical Pathology Department at [facility] as part of an ongoing quality checker program and in compliance with federally mandated regulations drawn from the Clinical Laboratory Improvement Act of 1988 (CLIA '88). ??Some of these tests rely on the use of analyte specific reagents and are subject to specific labeling requirements by the US Food and Drug Administration. ??Such diagnostic tests may only be performed in a facility that is certified by the Department of Health and Human Services as a high complexity laboratory under CLIA '88. The FDA has determined that such clearance or approval is not necessary. ??This test is used for clinical purposes. ??It should not be regarded as investigational or for research. ??Nevertheless, federal rules concerning the medical use of analyte specific reagents require that the following disclaimer be attached to the report: This test was developed and its performance characteristics determined by the Surgical Pathology Department [facility]. ??It has not been cleared or approved by the U. S. Food and Drug Administration. Note for decalcified specimens: This assay has not been validated on decalcified tissues. Results should be interpreted with caution given the possibility of false negativity on decalcified specimens Nunu Steen MD LAB PATHOLOGY ORDERABLES F inal Result Performing Organization Address City/State/[facility] Co de Phone Number PATHOLOGY [facility] [address] [place] [phone] documented in this encounter Visit Diagnoses Diagnosis RUQ abdominal pain Abdominal pain, right upper quadrant Epigastric pain Abdominal pain, epigastric Postprandial nausea Nausea Nausea alone documented in this encounter Admitting Diagnoses Diagnosis Epigastric pain Abdominal pain, epigastric Nausea Nausea alone RUQ abdominal pain Abdominal pain, right upper quadrant documented in this encounter Administered Medications Inactive Administered Medications - up to 3 most recent administrations Medication Order MAR Action Action Date Dose Rate Site ondansetron (ZOFRAN) injection 4 mg 4 mg, intravenous, Administer over 2 Minutes, Every 30 min PRN, nausea, vomiting, Starting on Tue11/24/22 at 1228, For 2 doses, Recovery (GI), Indications: Nausea and VomitingIndications:Nausea and Vomiting sodium chloride 0.9% flush 0.5-20 mL 0.5-20 mL, intra-catheter, As needed, line care, Starting on Tue11/24/22 at 1230, Pre-Procedure (GI), Flush volume based on line type and size. Flush before and after each use. sodium chloride 0.9% infusion 30 mL/hr, intravenous, Continuous, Starting on Tue11/24/22 at 1315, Pre-Procedure (GI) Rate/Dose Verify 11/24/2022 2:03 PM NUCLEAR REACTOR ENGINEER 30 mL/hr New Bag 11/24/2022 1:07 PM NUCLEAR REACTOR ENGINEER 30 mL/hr 30 mL/hr sodium chloride 0.9% infusion 125 mL/hr, intravenous, Continuous, Starting on Tue11/24/22 at 1300, Recovery (GI) documented in this encounter Discontinued Medications Medication Sig Discontinue Reason Start Date End Da te methylPREDNISolone (Medrol, Talon,) 4 mg Dosepack follow package directions Therapy completed 10/14/2022 11/24/2022 documented as of this encounter Active and Recently Administered Medications Times are shown in NUCLEAR REACTOR ENGINEER. Continuous Medication Order 11/22/2022 11/23/2022 11/24/2022 sodium chloride 0.9% infusion 30 mL/hr, intravenous, Continuous, Starting on Tue11/24/22 at 1315, Pre-Procedure (GI) 1307 (New Bag - Prov ider: Belle Almonte RN)1403 (Rate/Dose Verify - Provider: Laney Barroso CRNA)1416 (Anesthesia Volume Adjustment - Provider: Laney Barroso CRNA)1923 (Due: Stopped) sodium chloride 0.9% infusion 125 mL/hr, intravenous, Continuous, Starting on Tue11/24/22 at 1300, Recovery (GI) 1300 (Due) PRN Medication Order 11/22/2022 11/23/2022 11/24/2022 ondansetron (ZOFRAN) injection 4 mg 4 mg, intravenous, Administer over 2 Minutes, Every 30 min PRN, nausea, vomiting, Starting on Tue11/24/22 at 1228, For 2 doses, Recovery (GI), Indications: Nausea and Vomiting sodium chloride 0.9% flush 0.5-20 mL 0.5-20 mL, intra-catheter, As needed, line care, Starting on Tue11/24/22 at 1230, Pre-Procedure (GI), Flush volume based on line type and size. Flush before and after each use. documented in this encounter Orders Medications Ordered That Sonu ht Not Have Been Administered Count Last Ordered Date First Ordered Date ondansetron (ZOFRAN) injection 4 mg 1 11/24 sodium chloride 0.9% flush 0.5-20 mL 1 11/07 sodium chloride 0.9% infusion 1 11/24/2022 Discharge Count Last Ordered Date First Orde red Date DISCHARGE PATIENT 1 11/24/2022 documented in this encounter Care Teams Help Desk Support Specialist Relationship Specialty Start Date End Date Brandon Dumont MD PCP - General 03/26/21 Abisai Moss MD Consulting Physician General Surgery 05/14/21 Nunu Steen MD Consulting Physician Gastroenterology 05/14/21 documented as of this encounter
--- OUTSIDE RECORDS SUMMARY | 2024-10-27 10:55 | XMS_ITS | Encounter Summary ---
Author Organization [facility] Healthcare Address [address] [place] [address] Care Team Providers Care Hadoop Software Engineer Name Role Phone Brandon Dumont MD Primary Care Provider [phone] Abisai Moss MD Unavailable Nunu Steen MD Unavailable [phone] Encounter Details Date Type Department Care Team (Late st Contact Info) Description 12/15/2021 1:12 PM BULB BRANDER - 12/15/2021 1:42 PM BULB BRANDER Surgery [address] [address] Nunu Steen MD [address] [place] [id number] COLON REMOVAL SNARE Surgery Details Date/Time Status Location OR Service Patient Class Case Class Case Type Trauma Case? 12/15/2021 1:12 PM Posted [facility] ENDOSCOPY GI 01 Gastroenterology Outpatient Elective Panel 1 Procedure LRB Anes Op Region Wound Class Comments COLON REMOVAL SNARE N/A Monitor Anesthesia Care Colon ENDO ADD ON COLON BIOPSY N/A Choice Surgeon Surgeon Role Service Panel Nunu Steen MD Primary Gastroenterology 1 documented in this encounter Social History Tobacco Use Types Packs/Day Years Used Date Smoking Tobacco: Former Cigarettes Smokeless Tobacco: Never Comments:quit 2019 Alcohol Use Standard Drinks/Week Comments Not Currently 0 (1 standard drink = 0.6 oz pur e alcohol) Comments No Sex and Gender Information Value Date Recorded Sex Assigned at Not on file Legal Sex Female 12:50 AM BULB BRANDER Gender Identity Not on file Sexual Orientation Not on file documented as of this encounter Last Filed Vital Signs Vital Sign Reading Time Taken Comments Blood Pressure 129/81 12/15/2021 1:35 PM BULB BRANDER Pulse 53 12/15/2021 1:35 PM BULB BRANDER Temperature 36.4 ??C (97.5 ??F) 12/15/2021 12:[address] Respiratory Rate 18 12/15/2021 1:35 PM BULB BRANDER Oxygen Saturation 100% 12/15/2021 1:35 PM BULB BRANDER Inhaled Oxygen Concentration - - Weight 61.2 kg (135 lb) 12/15/2021 12:11 PM BULB BRANDER Height 165.1 cm (5' 5 ) 12/15/2021 12:11 PM BULB BRANDER Body Mass Index 22.47 12/15/2021 12:11 PM BULB BRANDER documented in this encounter Medications at Time [...] H&P Notes * Nunu Steen MD - 12/15/2021 1:21 PM CST History and Physical Date of visit: 12/15/2021 Subjective: Patient is a 61 y.o. female presented for evaluation for screening for colon cancer. No family history of colon cancer. Past Medical History: Diagnosis Date ??? Bladder spasms ??? Chronic pain 2019 ??? Gall stones ??? Hot flashes ??? Hypertension Past Surgical History: Procedure Laterality ??? BACK SURGERY 2016 ??? COLONOSCOPY 12/15/2021 Medications Prior to Admission Medication Sig Dispense Refill Last Dose ??? cloNIDine (CATAPRES) 0.3 mg tablet Take 0.3 mg by mouth daily 12/14/2021 at Unknown time ??? cyclobenzaprine (FLEXERIL) 10 mg tablet Take 1 tablet (10 mg total) by mouth 3 (three) times a day as needed for muscle spasms 12 tablet 0 12/13/2021 ??? diazePAM (VALIUM) 5 mg tablet Take 5 mg by mouth 3 (three) times a day as needed Past Week ??? gabapentin (NEURONTIN) 300 mg capsule Take 1 capsule (300 mg total) by mouth nightly 90 capsule1 12/14/2021 at Unknown time ??? hydrALAZINE (APRESOLINE) 25 mg tablet Take 1 tablet (25 mg total) by mouth 3 (three) times a day 90 tablet 11 12/14/2021 at Unknown time ??? loratadine 10 mg capsule Take by mouth Past Week ??? oxybutynin (DITROPAN) 5 mg tablet 12/14/2021 at Unknown time ??? tapentadol ER (NUCYNTA ER) 100 mg 12 hr tablet Take 100 mg by mouth 2 times daily 12/14/2021 at Unknown time ??? venlafaxine (EFFEXOR) 75 mg tablet Take 75 mg by mouth nightly 12/14/2021 at Unknown time ??? ergocalciferol (VITAMIN D) 50,000 unit capsule ??? fluticasone propionate (FLONASE) 50 mcg/actuation nasal spray Administer 2 sprays into each nostril daily 16 g 11 ??? ondansetron ODT (ZOFRAN-ODT) 8 mg disintegrating tablet Take 1 tablet (8 mg total) by mouth every 8 (eight) hours as needed for nausea or vomiting 30 tablet 0 Unknown Allergies Allergen Reactions ??? Adhesive Rash Social History Tobacco Use ??? Smoking status: Former Smoker Years: 40.00 ??? Smokeless tobacco: Never Used ??? Tobacco comment: quit 2020 Substance Use Topics ??? Alcohol use: Not Currently Family History Problem Relation Age of Onset [...] no edema. Skin: no rash. GI IMPRESSION: 1. Screening for colon cancer GI PLAN/RECOMMENDATIONS: 1. colonoscopy Nunu Steen MD BRANDER documented in this encounter Procedure Notes * Nunu Steen MD - 12/15/2021 12:38 PM CSTAssociated Order(s): COLONOSCOPY [facility] Patient Name: Kashmir Amado Procedure Date: 12/15/2021 12:38 PM Date of : 1960 Admit Type: Outpatient Age: 61 Gender: Female Attending MD: Nunu Steen M.D. Room: [facility] ENDOSCOPY ROOM 1 Note Status: Finalized Patient Profile: This is a 61 year old female. No family h/o colon cancer. Screening. Procedure: Colonoscopy Indications: Screening for colorectal malignant neoplasm, This is the patient's first colonoscopy Referring MD: Brandon Dumont M.D. Providers: Nunu Steen M.D. Impression: - Two 10 to 14 mm polyps in the transverse colon and in the cecum, removed with a cold snare. Resected and retrieved. - Two diminutive polyps in the rectum, removed with a jumbo cold forceps. Resected and retrieved. - Internal hemorrhoids. Recommendation: - Await pathology results. - Repeat colonoscopy in 3 years for screening purposes. - Continue present medications. Medicines: Monitored Anesthesia [...] procedure. The benefits, risks and alternatives of the procedure and sedation were discussed and informed consent was obtained. All questions were answered. Please refer to the signed informed consent document in the medical record. The bowel preparation used was Miralax and bisacodyl tablets via split dose instruction. The scope was passed under direct vision. The Pediatric Colonoscope PCF-H190L [id number] was introduced through the anus and advanced to the the cecum, identified by appendiceal orifice and ileocecal valve. The quality of the bowel preparation was good. Bowel prep was administered using a split dose. Findings: The perianal and digital rectal examinations were normal. The appendiceal orifice appeared normal. Two sessile polyps were found in the transverse colon and cecum. The polyps were 10 to 14 mm in size. These polyps were removed with a cold snare. CLip applied on the polypectomy site in the cecum. Resection and retrieval were complete. The ascending colon appeared normal. Two sessile polyps were found in the rectum. The polyps were diminutive in size. These polyps were removed with a jumbo cold forceps. Resection and retrieval were complete. Internal hemorrhoids were found during retroflexion. The hemorrhoids were small. None specific erythema noted in the distal part of the rectum. Electronically signed by Nunu Steen M.D. Nunu Steen M.D. 12/15/2021 1:42:41 PM Number of Addenda: 0 Note Initiated On: 12/15/2021 12:38 PM Procedure Code(s): --- Professional --- 76623, Colonoscopy, flexible; with removal of tumor(s), polyp(s), or other lesion(s) by snare technique 60440, 61, Colonoscopy, flexible; with biopsy, single or multiple Diagnosis Code(s): --- Professional --- Z12.11, Encounter for screening for malignant neoplasm of colon K64.8, Other hemorrhoids K63.5, Polyp of colon K62.1, Rectal polyp CPT copyright 2019 [employer] [place] [employer]. All rights reserved. The codes documented in this report are preliminary and upon workday financials consultant review may be revised to meet current compliance requirements. Recognized by the [place] [employer] for promoting quality in endoscopy BRANDER documented in this encounter Miscellaneous Notes * Perioperative Nursing Note - Josefina Telles RN - 12/15/2021 2:[address] Steen discharged patient to home to follow up in 3 years. BRANDER documented in this encounter Plan of Treatment Not on file documented as of this encounter Procedures Procedure Name Priority Date/Time Associated Diagnosis Comments SURGICAL PATHOLOGY STAT 12/15/2021 2: 18 PM BULB BRANDER Screen for colon cancer ENDO ADD ON COLON BIOPSY 12/15/2021 12:40 PM BULB BRANDER Screen for colon cancer COLON REMOVAL SNARE 12/15/2021 1 2:40 PM BULB BRANDER Screen for colon cancer COLONOSCOPY 12/15/2021 12:38 PM BULB BRANDER documented in this encounter Results * Surgical pathology (12/15/2021 2:18 PM BULB BRANDER) Tissue (Polyp(s), colon/colorectal, esophageal, gastric) 12/15/2021 1:23 PM BULB BRANDER Tissue (Polyp(s), colon/colorectal, esophageal, gastric) 12/15/2021 1:23 PM BULB BRANDER Narrative PATHOLOGY [facility] ([place]) - 12/16/2021 2:33 PM BULB BRANDER EPIC results best viewed via link to PDF [facility] [employer] Department of Pathology [address] [place] [address] Note to Patients: This report may contain [...] the details. Final Report Patient Name: ??KARONJuancarlos KASHMIR L. Address: ??[address], ??[place], [place] ??[address] Gender: ??F : ??1960 (Age: 61) Service: ??Gastro Location: ??[facility] #: ??[id number] Patient Type: ??[facility] SDS Accession # ?[id number] Taken: ??12/15/2021 Received: ??12/15/2021 Accessioned: ??12/15/2021 Reported: ??12/16/2021 Physician(s):Dr. Nunu Steen M.D. Diagnosis: A. ??Transverse colon polyp x2, biopsy: ? - Tubular adenoma x2. - Negative for high-grade dysplasia. B. ??Rectal polyp x2, biopsy: ? - Hyperplastic polyp x2. Jatinder Tovar M.D. Report Electronically Reviewed and Signed Out By ??Jatinder Tovar M.D. ??12/16/2021 14:33:51 Specimen(s) Received: A: Transverse polyp x 2 B: Rectal polyp x 2 Microscopic Description: A. ?Sections show a tubular adenoma x2. ??There is no evidence of high-grade dysplasia or invasive carcinoma. B. ?Sections show a hyperplastic polyp x2. ??No features of a sessile serrated adenoma are seen. ??There is no evidence of dysplasia or malignancy. Clinical History: Screen for colon cancer. ??Colonoscopy. ?? Gross Description: The specimen is submitted in two containers labeled Kashmir Amado . A. ??The first container is labeled transverse polyp . ??It is three barahona 2-7 mm fragments. ??All in A. B. ??The second container is labeled rectal polyp . ??It is two [place] 2 mm fragments. ??All in B. ??Jatinder Montalvo M.D./Romulo Bynum REPORT IMAGES AND SCANNED DOCUMENTS, IF INCLUDED, ONLY VIEWABLE IN PDF VERSION OF REPORT The performance characteristics of some immunohistochemical stains, fluorescence in-situ hybridization tests and immunophenotyping by flow cytometry cited in this report (if any) were determined by the Surgical Pathology Department at [facility] as part of an ongoing quality specialist program and in compliance with federally mandated [...] characteristics determined by the Surgical Pathology Department [facility]. ??It has not been cleared or approved by the U. S. Food and Drug Administration. Nunu Steen MD LAB PATHOLOGY ORDERABLES F inal Result Performing Organization Address City/State/[facility] Co de Phone Number PATHOLOGY [address] [address] * COLONOSCOPY (12/15/2021 12:38 PM BULB BRANDER) Anatomical Region Laterality Modality Other Narrative Procedure Note Nunu Steen MD - 12/15/2021 12:38 PM CST [facility] Patient Name: Kashmir Amado Procedure Date: 12/15/2021 12:38 PM Date of : 1960 Admit Type: Outpatient Age: 61 Gender: Female Attending MD: Nunu Steen M.D. Room: [facility] ENDOSCOPY ROOM 1 Note Status: Finalized Patient [...] under direct vision. The Pediatric Colonoscope PCF-H190L [id number] was introducedthrough the anus and advanced to [...] 12:38 PM Procedure Code(s): --- Professional --- 43058, Colonoscopy, flexible; with removal of tumor(s), polyp(s), or other lesion(s) by snare technique 35924, 61, Colonoscopy, flexible; with biopsy, single or multiple Diagnosis Code(s): --- Professional --- Z12.11, Encounter for screening for malignant neoplasm of colon K64.8, Other hemorrhoids K63.5, Polyp of colon K62.1, Rectal polyp CPT copyright 2019 [employer] [place] [employer]. All rights reserved. The codes documented in this report are preliminary and upon workday financials consultant reviewmay be revised to meet current compliance requirements. Recognized by the [place] [employer] for promoting quality in endoscopy Nunu Steen MD ENDOSCOPY PROCEDURES Final Result documented in this encounter Visit Diagnoses Diagnosis Colon cancer screening- Primary Special screening for malignant neoplasms, colon Screen for colon cancer Special screening for malignant neoplasms, colon Screen for colon cancer Special screening for malignant neoplasms, colon documented in this encounter Admitting Diagnoses Diagnosis Colon cancer screening Special screening for malignant neoplasms, colon documented in this encounter Administered Medications Inactive Administered Medications - up to 3 most recent administrations Medication Order MAR Action Action Date Dose Rate Site ondansetron (ZOFRAN) injection 4 mg 4 mg, intravenous, Administer over 2 Minutes, Every 30 min PRN, nausea, vomiting, Starting on Tue12/15/21 at 1214, For 2 doses, Recovery (GI), Indications: Nausea and VomitingIndications:Nausea and Vomiting sodium chloride 0.9% flush 0.5-20 mL 0.5-20 mL, intra-catheter, As needed, line care, Starting on Tue12/15/21 at 1215, Pre-Procedure (GI), Flush volume based on line type and size. Flush before and after each use. sodium chloride 0.9% infusion 30 mL/hr, intravenous, Continuous, Starting on Tue12/15/21 at 1300, Pre-Procedure (GI) Restarted 12/15/2021 1:00 PM BULB BRANDER Rate/Dose Verify 12/15/2021 12:57 PM BULB BRANDER 30 mL/ hr New Bag 12/15/2021 12:33 PM BULB BRANDER 30 mL/hr 30 mL/hr sodium chloride 0.9% infusion 125 mL/hr, intravenous, Continuous, Starting on Tue12/15/21 at 1300, Recovery (GI) documented in this encounter Active and Recently Administered Medications Times are shown in BULB BRANDER. Continuous Medication Order 12/13/2021 12/14/2021 12/15/2021 sodium chloride 0.9% infusion 30 mL/hr, intravenous, Continuous, Starting on Tue12/15/21 at 1300, Pre-Procedure (GI) 1233 (New Bag - Prov ider: Nae Santos RN)1257 (Rate/Dose Verify - Provider: Zack To MD)1259 (Paused - Provider: Zack To MD - Comment: Switch to gravity)1300 (Restarted - Provider: Zack To MD)1312 (Anesthesia Volume Adjustment - Provider: Zack To MD) sodium chloride 0.9% infusion 125 mL/hr, intravenous, Continuous, Starting on Tue12/15/21 at 1300, Recovery (GI) 1300 (Due) PRN Medication Order 12/13/2021 12/14/2021 12/15/2021 ondansetron (ZOFRAN) injection 4 mg 4 mg, intravenous, Administer over 2 Minutes, Every 30 min PRN, nausea, vomiting, Starting on Tue12/15/21 at 1214, For 2 doses, Recovery (GI), Indications: Nausea and Vomiting sodium chloride 0.9% flush 0.5-20 mL 0.5-20 mL, intra-catheter, As needed, line care, Starting on Tue12/15/21 at 1215, Pre-Procedure (GI), Flush volume based on line type and size. Flush before and after each use. documented in this encounter Orders Medications Ordered That Sonu ht Not Have Been Administered Count Last Ordered Date First Ordered Date ondansetron (ZOFRAN) injection 4 mg 1 12/15 sodium chloride 0.9% flush 0.5-20 mL 1 06/2022 sodium chloride 0.9% infusion 1 12/15/2021 documented in this encounter Additional Health Concerns Infection Onset Date Last Indicated Resolved Time COVID: Recovered Comment:Added based on recent COVID infection. 11/24/2021 12/14/2021 03/24/2022 3:05 AM C DT documented as of this encounter Care Teams Hadoop Software Engineer Relationship Specialty Start Date End Date Brandon Dumont MD PCP - General 03/26/21 Abisai Moss MD Consulting Physician General Surgery 05/14/21 Nunu Steen MD Consulting Physician Gastroenterology 05/14/21 documented as of this encounter
--- OUTSIDE RECORDS SUMMARY | 2024-10-27 10:55 | XMS_ITS | Encounter Summary ---
Author Organization [facility] Address [address] [address] Care Team Providers Care Contract Driver Name Role Phone Brandno Dumont MD Primary Care Provider [phone] Abisai Moss MD Unavailable Nunu Steen MD Unavailable [phone] Reason for Referral * Consultation (Routine) - Closed Specialty Diagnoses / Procedures Referred By Contac t Referred To Contact Pulmonary Disease / Pulmonology Diagnoses Multiple lung nodules on CT Jania See PA [address] [place] [id number] Phone: tel: fax: Mike Silva MD Phone: tel: fax: Referral ID Status Reason Start Date Expiration Date V isits Requested Visits Authorized [id number] Closed Specialty Services Required 09/14/2022 10/14/2023 1 1 Question Answer Please select the performing region: [facility] [[id number]] Please select the performing department: [facility] [id number] [[id number]] To provider: MIKE SILVA [[id number]] # of visits: 1 Comments Multiple new pulmonary nodules EM SPECIALIST Reason for Visit * Reason Comments Follow-up Pt is here for 3 mon follow-up . Pt is also wanting to discuss test results. Encounter Details Date Type Department Care Team (Latest Contact Info) Description 09/14/2022 2:30 PM SYSTEM SPECIALIST Office Visit [facility] Gastroenterology at [address] [place] [address] Jania See PA [address] [place] [address] [address] [place] [address] RUQ pain (Primary Dx); Epigastric pain; Diarrhea, unspecified type; Fecal urgency; History of cholecystectomy; Pancreatic cyst; Tubular adenoma of colon; Multiple lung nodules on CT Social History Tobacco Use Types Packs/Day Years Used Date Smoking Tobacco: Former Cigarettes Smokeless Tobacco: Never Comments:quit 2019 Alcohol Use Standard Drinks/Week Comments Not Currently 0 (1 standard drink = 0.6 oz pur e alcohol) Comments No Sex and Gender Information Value Date Recorded Sex Assigned at Not on file Legal Sex Female 12:50 AM SYSTEM SPECIALIST Gender Identity Not on file Sexual Orientation Not on file documented as of this encounter Last Filed Vital Signs Vital Sign Reading Time Taken Comments Blood Pressure 120/70 09/14/2022 2:46 PM SYSTEM SPECIALIST Pulse 72 09/14/2022 2:46 PM SYSTEM SPECIALIST Temperature - - Respiratory Rate - - Oxygen Saturation 97% 09/14/2022 2:46 PM SYSTEM SPECIALIST Inhaled Oxygen Concentration - - Weight 58.5 kg (129 lb) 09/14/2022 2:46 PM SYSTEM SPECIALIST Height - - Body Mass Index 21.47 06/14/2022 10:50 AM CDT documented in this encounter Patient Instructions * Patient Instructions* Jania See PA - 09/14/2022 2:30 PM SYSTEM SPECIALIST -Will place referral to crisis nurse. -Will trial nortriptyline. Discussed serotonin syndrome. Try to avoid Clonidine and Flexeril use. -Will schedule for EGD for further evaluation. -Continue Colestid as needed for bile-induced diarrhea secondary to gallbladder removal. EM SPECIALIST EM SPECIALIST EM SPECIALIST * Attachments The following attachments cannot be sent through Care Everywhere. * Serotonin Syndrome (General Information) (East Timorese) documented in this encounter Ordered Prescriptions Prescription Sig Dispense Quantity Refills Last Filled Start Date End Date nortriptyline (PAMELOR) 10 mg capsule Take 1 capsule (10 mg total) by mouth nightly 30 capsule 1 09/14/2022 3 colestipoL (COLESTID) 1 gram tablet Take 1 tablet (1 g total) by mouth 2 (two) times a day as needed (diarrhea) 60 tablet 09/14/2022 3 documented in this encounter Progress Notes * Jania See PA - 09/14/2022 2:30 PM CST Images from the original note were not included. FOLLOW-UP VISIT Chief Complaint Patient presents with Follow-up Pt is here for 3 month follow-up . Pt is also wanting to discuss test results. SUBJECTIVE: HPI: Ms. Amado is following up for Follow-up (Pt is here for 3 month follow-up . Pt is also wanting to discuss test results.) Patient is presenting to the office today as a follow-up for unintentional weight loss, diarrhea, right-sided abdominal pain. Last office visit was 06/14/2022. At that time patient was being seen forunintentional 20 lb weight loss over the past year since her cholecystectomy. A CT of the abdomen and pelvis with contrast was performed which noted multiple pancreatic lesions, multiple pulmonary nodules. A subsequent MRI performed on 08/12/2022 noted stable findings of the pancreatic cysts. CBC and CMP from 06/14/2022 were unremarkable. CA19-9 negative. She was started on Colestid for postprandial diarrhea, and states this has significantly helped. States she will use this medication as needed and has not had any issues with diarrhea recently. She also notes that her diarrhea seems to be worse after fried/fatty foods, so she tries to avoid these. Denies any current nausea or vomiting. Of note, weight has been stable since last visit. She also feels like her appetite has improved. Patient is admitting to continued right upper quadrant abdominal pain. States that the pain starts in the epigastric region and radiates to the entire right side of her abdomen, but especially the right upper quadrant region. She states that pain medications such as defu-bur-tzonadx Tylenol and tramadol help her pain. States certain movements and palpation make the pain worse. She is also concerned about the pulmonary nodules. Notes she has been more short of breath since having COVID. CT C/A/P W contrast 07/08/2022: Mild upper lobe emphysema with multiple 2-3 mm bilateral pulmonary nodules that were not on previous CT. Recommend optional chest CT in 12 months. Mild soft tissue thickening in the umbilical tract compatible with granulation tissue, decreased subcutaneous and intra-abdominal fat consistent with history of weight loss, stable uterine fibroids, stable 2-3 mm cystic lesions in the pancreatic head. MRCP with and without contrast 08/12/2022: tiny cystic lesions within the pancreatic head. Recommend follow-up imaging in 6 months. ROS: Review of Systems Constitutional: Negative for activity [...] and leg swelling. Gastrointestinal: Positive for abdominal pain, diarrhea and nausea. Negative for abdominal distention, anal bleeding, blood in stool, constipation, rectal pain and vomiting. Genitourinary: Negative for dysuria, frequency, hematuria and urgency. Musculoskeletal: Negative for arthralgias and myalgias. Skin: Negative for pallor and rash. Neurological: Negative for dizziness, tremors, syncope, weakness and light-headedness. Psychiatric/Behavioral: Negative for confusion and dysphoric mood. The patient is not nervous/anxious. Past Medical History: Diagnosis Date Bladder spasms Chronic pain 2020 Gall stones Hot flashes Hypertension Past Surgical History: Procedure Laterality Date BACK SURGERY 2017 COLONOSCOPY 12/15/2021 Patient Active Problem List Diagnosis Cigarette nicotine dependence, uncomplicated Decrease in appetite Degeneration of intervertebral disc of lumbar region Irritable mood Lumbar radiculopathy Menopause present Tobacco use Referred otalgia of left ear Allergic rhinitis Cholecystitis Anxiety Abnormality of rectum Elevated liver enzymes Choledocholithiasis with acute cholecystitis Uterine leiomyoma Epigastric pain S/P ERCP Colon cancer screening Diarrhea Nausea Current Outpatient Medications on File Prior to Visit Medication Sig Dispense Refill albuterol HFA (ProAir HFA) 90 mcg/actuation inhaler Inhale 2 puffs every 4 (four) hours as needed for wheezing or shortness of breath 8.5 g 0 benzonatate (TESSALON) 200 mg capsule Take 1 capsule (200 mg total) by mouth 3 (three) times a day as needed for cough 30 capsule 0 cloNIDine (CATAPRES) 0.3 mg tablet Take 0.3 mg by mouth daily cyclobenzaprine (FLEXERIL) 10 mg tablet Take 1 tablet (10 mg total) by mouth 3 (three) times a day as needed for muscle spasms 12 tablet 0 diazePAM (VALIUM) 5 mg tablet Take 5 mg by mouth 3 (three) times a day as needed ergocalciferol (VITAMIN D) 50,000 unit capsule gabapentin (NEURONTIN) 300 mg capsule Take 1 capsule (300 mg total) by mouth nightly 90 capsule 1 lidocaine viscous (XYLOCAINE) 2 % solution Gargle, swish and swallow/spit 5mL every six hours as needed for discomfort. Do not exceed maximum dose of of 4 times daily. 100 mL 0 loratadine 10 mg capsule Take by mouth ondansetron ODT (ZOFRAN-ODT) 8 mg disintegrating tablet Take 1 tablet (8 mg total) by mouth every 8(eight) hours as needed for nausea or vomiting 30 tablet 0 oxybutynin (DITROPAN) 5 mg tablet tapentadol ER (NUCYNTA ER) 100 mg 12 hr tablet Take 100 mg by mouth 2 times daily venlafaxine (EFFEXOR) 75 mg tablet Take 75 mg by mouth nightly fluticasone propionate (FLONASE) 50 mcg/actuation nasal spray Administer 2 sprays into each nostrildaily 16 g 11 hydrALAZINE (APRESOLINE) 25 mg tablet Take 1 tablet (25 mg total) by mouth 3 (three) times a day 90tablet 11 [DISCONTINUED] colestipoL (COLESTID) 1 gram tablet Take 1 tablet (1 g total) by mouth 2 (two) timesa day 60 tablet 2 No current facility-administered medications on file prior to visit. Family History Problem Relation Age of Onset Heart attack Mother Family history of myocardial infarction - (Added by TW Conv) Heart attack Father Family history of myocardial infarction - (Added by TW Conv) Social History Tobacco Use Smoking status: Former Years: 40.00 Types: Cigarettes Smokeless tobacco: Never Tobacco comments: quit 2019 Substance and Sexual Activity Drug use: None Sexual activity: None Alcohol Use: Not on file Allergies Allergen Reactions Adhesive Rash OBJECTIVE: Vitals BP 120/70 Pulse 72 Wt 58.5 kg (129 lb) SpO2 97% BMI 21.47 kg/m?? Exam: Physical Exam Vitals [...] There is no mass. Tenderness: There is abdominal tenderness (RUQ). There is no guarding or rebound. Hernia: [...] X rays and endoscopy procedures. Lab on 08/12/2022 Component Date Value Creatinine, bld 08/12/2022 1.13 Lab on 07/09/2022 Component Date Value CA 19-9 ag 07/09/2022 <1.0 Hospital Outpatient Visit on 07/08/2022 Component Date Value Creatinine, bld 07/08/2022 1.19 GI Assessment & Plan: Diagnoses and all orders for this visit: RUQ pain (Primary) Epigastric pain Patient's biggest concern at this time is her persistent epigastric/right-sided abdominal pain. CT of the abdomen did not note any acute abdominal pelvic processes. MRI of the abdomen did not note any acute abdominal pelvic processes. Will start patient on low-dose nightly nortriptyline 10 mg to see if this helps with functional pain; discussed serotonin syndrome with patient due to her other medications, and advised she stop taking the medication and let us know immediately if she develops thesymptoms. Will also get patient scheduled for EGD for further evaluation. Diarrhea, unspecified type Fecal urgency History of cholecystectomy Fecal urgency and diarrhea have improved with use of Colestid - continue colestid, refill sent. Sheshould avoid any known trigger foods, including greasy/fatty meals. Pancreatic cyst Patient had multiple pancreatic cysts noted on CT and MRI. CA19-9 negative. Will repeat MRI in 6 months for repeat evaluation of the cysts per radiology recommendation. Tubular adenoma of colon Patient has a history of tubular adenoma. She is on a 3 year screening schedule for colonoscopy, and is due in December 2024. Multiple lung nodules on CT Patient is very concerned about the newly discovered pulmonary nodules. She states that ever since she had COVID she feels like she has not been able to breathe as well as she used to. She is wantingto be referred to pulmonology - referral placed. - Ambulatory referral to Pulmonology; Future Other orders - colestipoL (COLESTID) 1 gram tablet; Take 1 tablet (1 g total) by mouth 2 (two) times a day as needed (diarrhea) - nortriptyline (PAMELOR) 10 mg capsule; Take 1 capsule (10 mg total) by mouth nightly Total time spent on the date of the qcvh-jq-yrwf encounter, including both rczt-ey-cqee time (including staff/provider time spent providing education) and the-wkrk-ps-face time (pre-charting, reviewing chart, post-charting) was 35 minutes. This note is dictated and transcribed by [employer]. Crm Business Analyst variances may occur. Despite proofreading, typographical errors may occur. My collaborating physician is Dr. Nunu Steen- Gastroenterology. VENESSA Chen Cosigned by Nunu Steen MD at 09/15/2022 4:14 PM SYSTEM SPECIALIST EM SPECIALIST EM SPECIALIST EM SPECIALIST EM SPECIALIST documented in this encounter Plan of Treatment Scheduled Referrals Name Type Priority Associated Diagnoses Order Schedule Ambulatory referral to Pulmonology Outpatient Referral Routine Multiple lung nodules on CT Expected: 09/28/2022 (Approximate), Expires: 09/14/2023 documented as of this encounter Visit Diagnoses Diagnosis RUQ pain- Primary Abdominal pain, right upper quadrant Epigastric pain Abdominal pain, epigastric Diarrhea, unspecified type Fecal urgency History of cholecystectomy Other acquired absence of organ Pancreatic cyst Cyst and pseudocyst of pancreas Tubular adenoma of colon Benign neoplasm of colon Multiple lung nodules on CT documented in this encounter Discontinued Medications Medication Sig Discontinue Reason Start Date End Da te colestipoL (COLESTID) 1 gram tablet Take 1 tablet (1 g total) by mouth 2 (two) times a day Reorder 06/14/2022 09/14/2022 documented as of this encounter Additional Health Concerns Infection Onset Date Last Indicated Resolved Time COVID: Recovered Comment:Added based on recent COVID infection. 05/29/2022 06/07/2022 09/26/2022 3:[address] documented as of this encounter Care Teams Contract Driver Relationship Specialty Start Date End Date Brandon Dumont MD PCP - General 03/26/21 Abisai Moss MD Consulting Physician General Surgery 05/14/21 Nunu Steen MD Consulting Physician Gastroenterology 05/14/21 documented as of this encounter
--- OUTSIDE RECORDS SUMMARY | 2024-10-27 10:55 | XMS_ITS | Encounter Summary ---
Author Organization [facility] Address [address] [place] [address] Care Team Providers Care Grain Farmer Name Role Phone Brandon Dumont MD Primary Care Provider [phone] Abisai Moss MD Unavailable Nunu Steen MD Unavailable [phone] Reason for Visit * Reason Onset Date Comments Covid-19 Home Monitoring 05/24/2022 Daily c alls Encounter Details Date Type Department Care Team (Late st Contact Info) Description 05/24/2022 Telephone [facility] Accountable Care Organization [address] [place] [id number] Bozena Oates MA [address] [place] [address] [address] Covid-19 Home Monitoring (Daily calls) Social History Tobacco Use Types Packs/Day Years Used Date Smoking Tobacco: Former Cigarettes Smokeless Tobacco: Never Comments:quit 2019 Alcohol Use Standard Drinks/Week Comments Not Currently 0 (1 standard drink = 0.6 oz pur e alcohol) Comments No Sex and Gender Information Value Date Recorded Sex Assigned at Not on file Legal Sex Female 12:50 AM 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 COVID-19 Symptom questionnaire was not completed today, because the patient could not be reached. Next Program Call Due: 05/25 documented in this encounter Plan of Treatment Not on file documented as of this encounter Visit Diagnoses Not on filedocumented in this encounter Additional Health Concerns Infection Onset Date Last Indicated Resolved Time COVID19 05/19/2022 05/19/2022 05/29/2022 3:05 AM CDT documented as of this encounter Care Teams Grain Farmer Relationship Specialty Start Date End Date Brandon Dumont MD PCP - General 03/26/21 Abisai Moss MD Consulting Physician General Surgery 05/14/21 Nunu Steen MD Consulting Physician Gastroenterology 05/14/21 documented as of this encounter
--- OUTSIDE RECORDS SUMMARY | 2024-10-27 10:55 | XMS_ITS | Encounter Summary ---
Author Organization [facility] Address [address] [place] [address] Care Team Providers Care Pile Driver Name Role Phone Brandon Dumont MD Primary Care Provider [phone] Abisai Moss MD Unavailable Nunu Steen MD Unavailable [phone] Reason for Visit * Reason Onset Date Comments Covid-19 Home Monitoring 11/20/2021 daily c all Encounter Details Date Type Department Care Team (Late st Contact Info) Description 11/20/2021 Telephone [facility] Accountable Care Organization [address] [place] [address] Jania Garcia MA [address] [place] [address] [address] [place] [address] Covid-19 Home Monitoring (daily call) Social History Tobacco Use Types Packs/Day Years Used Date Smoking Tobacco: Former Cigarettes Smokeless Tobacco: Never Comments:quit 2019 Alcohol Use Standard Drinks/Week Comments Not Currently 0 (1 standard drink = 0.6 oz pur e alcohol) Comments No Sex and Gender Information Value Date Recorded Sex Assigned at Not on file Legal Sex Female 12:50 AM AUDIO VISUAL ENGINEER Gender Identity Not on file Sexual Orientation Not on file documented as of this encounter Miscellaneous Notes * Telephone Encounter - Jania Rodriguez MA - 11/20/2021 9:39 AM AUDIO VISUAL ENGINEER [facility] Day 1 COVID Home Monitoring Unable to Reach Called patient for home monitoring MA assessment. Unable to reach patient. Patient will receive follow up call tomorrow. O VISUAL ENGINEER documented in this encounter Plan of Treatment Not on file documented as of this encounter Visit Diagnoses Not on filedocumented in this encounter Additional Health Concerns Infection Onset Date Last Indicated Resolved Time COVID19 11/14/2021 11/14/2021 11/24/2021 3:06 AM AUDIO VISUAL ENGINEER documented as of this encounter Care Teams Pile Driver Relationship Specialty Start Date End Date Brandon Dumont MD PCP - General 03/26/21 Abisai Moss MD Consulting Physician General Surgery 05/14/21 Nunu Steen MD Consulting Physician Gastroenterology 05/14/21 documented as of this encounter
--- OUTSIDE RECORDS SUMMARY | 2024-10-27 10:55 | XMS_ITS | Encounter Summary ---
Author Organization [facility] Healthcare Address [address] [place] [address] Care Team Providers Care Manager Of Procurement Name Role Phone Brandno Dumont MD Primary Care Provider [phone] Abisai Moss MD Unavailable Nunu Steen MD Unavailable [phone] Encounter Details Date Type Department Care Team (Latest Contact Info) Description 12/15/2021 11:59 AM SUBMARINE ELEMENT COORDINATOR - 12/15/2021 2:18 PM SUBMARINE ELEMENT COORDINATOR Hospital Encounter [address] [address] Nunu Steen MD [address] [place] [address] Screen for colon cancer Discharge Disposition: Discharge to home or self care Social History Tobacco Use Types Packs/Day Years Used Date Smoking Tobacco: Former Cigarettes Smokeless Tobacco: Never Comments:quit 2019 Alcohol Use Standard Drinks/Week Comments Not Currently 0 (1 standard drink = 0.6 oz pur e alcohol) Comments No Sex and Gender Information Value Date Recorded Sex Assigned at Not on file Legal Sex Female 12:50 AM SUBMARINE ELEMENT COORDINATOR Gender Identity Not on file Sexual Orientation Not on file documented as of this encounter Last Filed Vital Signs Vital Sign Reading Time Taken Comments Blood Pressure 129/81 12/15/2021 1:35 PM SUBMARINE ELEMENT COORDINATOR Pulse 52 12/15/2021 1:50 PM SUBMARINE ELEMENT COORDINATOR Temperature 36.6 ??C (97.9 ??F) 12/15/2021 1:50 PM CS T Respiratory Rate 18 12/15/2021 1:50 PM SUBMARINE ELEMENT COORDINATOR Oxygen Saturation 100% 12/15/2021 1:50 PM SUBMARINE ELEMENT COORDINATOR Inhaled Oxygen Concentration - - Weight 61.2 kg (135 lb) 12/15/2021 12:11 PM SUBMARINE ELEMENT COORDINATOR Height 165.1 cm (5' 5 ) 12/15/2021 12:11 PM SUBMARINE ELEMENT COORDINATOR Body Mass Index 22.47 12/15/2021 12:11 PM SUBMARINE ELEMENT COORDINATOR documented in this encounter Discharge Diagnoses Diagnosis Encounter for screening for malignant neoplasm of colon - ENCOUNTER FOR SCREENING FOR MALIGNANT NEOPLASM OF COLON 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 Other hemorrhoids - OTHER HEMORRHOIDS Rectal polyp - RECTAL POLYP Anal and rectal polyp Essential (primary) hypertension - ESSENTIAL (PRIMARY) HYPERTENSION Unspecified essential hypertension Anxiety disorder, unspecified - ANXIETY DISORDER, UNSPECIFIED Depression, unspecified - DEPRESSION, UNSPECIFIED Family history of ischemic heart disease and other diseases of the circulatory system - FAMILY HISTORY OF ISCHEMIC HEART DISEASE AND OTHER DISEASES OF THE CIRCULATORY SYSTEM Nicotine dependence, cigarettes, uncomplicated - NICOTINE DEPENDENCE, CIGARETTES, UNCOMPLICATED 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 colonoscopy Nunu Steen MD ARINE ELEMENT COORDINATOR documented in this encounter Procedure Notes * Nunu Steen MD - 12/15/2021 12:38 PM CSTAssociated Order(s): COLONOSCOPY [facility] Patient Name: Kashmir Arguello Procedure Date: 12/15/2021 12:38 PM Date of : 1960 Admit Type: Outpatient Age: 61 Gender: Female Attending MD: Nunu Steen M.D. Room: [facility] 1 Note Status: Finalized Patient [...] under direct vision. The Pediatric Colonoscope PCF-H190L [id number] was introduced through the anus and advanced [...] 12:38 PM Procedure Code(s): --- Professional --- 54709, Colonoscopy, flexible; with removal of tumor(s), polyp(s), or other lesion(s) by snare technique 66952, 61, Colonoscopy, flexible; with biopsy, single or multiple Diagnosis Code(s): --- Professional --- Z12.11, Encounter for screening for malignant neoplasm of colon K64.8, Other hemorrhoids K63.5, Polyp of colon K62.1, Rectal polyp CPT copyright 2019 [employer] [place] [employer]. All rights reserved. The codes documented in this report are preliminary and upon binder layer review may be revised to meet current compliance requirements. Recognized by the [place] [employer] for promoting quality in endoscopy ARINE ELEMENT COORDINATOR documented in this encounter Miscellaneous Notes * Perioperative Nursing Note - Josefina Telles RN - 12/15/2021 2:12 [address] ELEMENT CO[address] Dr. Steen discharged patient to home to follow up in 3 years. ARINE ELEMENT COORDINATOR documented in this encounter Plan of Treatment Not on file documented as of this encounter Procedures Procedure Name Priority Date/Time Associated Diagnosis Comments SURGICAL PATHOLOGY STAT 12/15/2021 2: 18 PM SUBMARINE ELEMENT COORDINATOR Screen for colon cancer ENDO ADD ON COLON BIOPSY 12/15/2021 12:40 PM SUBMARINE ELEMENT COORDINATOR Screen for colon cancer COLON REMOVAL SNARE 12/15/2021 1 2:40 PM SUBMARINE ELEMENT COORDINATOR Screen for colon cancer COLONOSCOPY 12/15/2021 12:38 PM SUBMARINE ELEMENT COORDINATOR documented in this encounter Results * Surgical pathology (12/15/2021 2:18 PM SUBMARINE ELEMENT COORDINATOR) Tissue (Polyp(s), colon/colorectal, esophageal, gastric) 12/15/2021 1:23 PM SUBMARINE ELEMENT COORDINATOR Tissue (Polyp(s), colon/colorectal, esophageal, gastric) 12/15/2021 1:23 PM SUBMARINE ELEMENT COORDINATOR Narrative PATHOLOGY [facility] ([place]) - 12/16/2021 2:33 PM SUBMARINE ELEMENT COORDINATOR EPIC results best viewed via link to PDF [facility] Department of Pathology [address] [place] [address] Note to Patients: This report may contain [...] explain the details. Final Report Patient Name: ??KASHMIR ARGUELLO Address: ??[address] [facility], ??[place], [place] ??[id number] Gender: ??F : ??1960 (Age: 61) Service: ??Gastro Location: ??[facility] Hospital #: ??[id number] Patient Type: ??[facility] Accession # ?[id number] Taken: ??12/15/2021 Received: ??12/15/2021 Accessioned: ??12/15/2021 Reported: [...] is submitted in two containers labeled Kashmir Arguello . A. ??The first container is labeled [...] determined by the Surgical Pathology Department at [facility] as part of an ongoing research quality assurance analyst program and in compliance with federally mandated [...] characteristics determined by the Surgical Pathology Department [facility]. ??It has not been cleared or approved by the U. S. Food and Drug Administration. Nunu Steen MD LAB PATHOLOGY ORDERABLES F inal Result Performing Organization Address City/State/[facility] Co de Phone Number PATHOLOGY [place] [phone] * COLONOSCOPY (12/15/2021 12:38 PM SUBMARINE ELEMENT COORDINATOR) Anatomical Region Laterality Modality Other Narrative Procedure Note Nunu Steen MD - 12/15/2021 12:38 PM CST [facility] Patient Name: Kashmir Arguello Procedure Date: 12/15/2021 12:38 PM Date of : 1960 Admit Type: Outpatient Age: 61 Gender: Female Attending MD: Nunu Steen M.D. Room: [facility] 1 Note Status: Finalized Patient [...] under direct vision. The Pediatric Colonoscope PCF-H190L [id number] was introducedthrough the anus and advanced to [...] 12:38 PM Procedure Code(s): --- Professional --- 03290, Colonoscopy, flexible; with removal of tumor(s), polyp(s), or other lesion(s) by snare technique 77574, 61, Colonoscopy, flexible; with biopsy, single or multiple Diagnosis Code(s): --- Professional --- Z12.11, Encounter for screening for malignant neoplasm of colon K64.8, Other hemorrhoids K63.5, Polyp of colon K62.1, Rectal polyp CPT copyright 2019 [employer] [place] [employer]. All rights reserved. The codes documented in this report are preliminary and upon binder layer reviewmay be revised to meet current compliance requirements. Recognized by the [place] [employer] for promoting quality [...] 1300, Pre-Procedure (GI) Restarted 12/15/2021 1:00 PM SUBMARINE ELEMENT COORDINATOR Rate/Dose Verify 12/15/2021 12:57 PM SUBMARINE ELEMENT COORDINATOR 30 mL/ hr New Bag 12/15/2021 12:33 PM SUBMARINE ELEMENT COORDINATOR 30 mL/hr 30 mL/hr sodium chloride 0.9% infusion 125 mL/hr, intravenous, Continuous, Starting on Tue12/15/21 at 1300, Recovery (GI) documented in this encounter Active and Recently Administered Medications Times are shown in SUBMARINE ELEMENT COORDINATOR. Continuous Medication Order 12/13/2021 12/14/2021 12/15/2021 sodium [...] of this encounter Care Teams Manager Of Procurement Relationship Specialty Start Date End Date Brandon Dumont MD PCP - General 03/26/21 Abisai Moss MD Consulting Physician General Surgery 05/14/21 Nunu Steen MD Consulting Physician Gastroenterology 05/14/21 documented as of this encounter
--- OUTSIDE RECORDS SUMMARY | 2024-10-27 10:55 | XMS_ITS | Encounter Summary ---
Author Organization [facility] Address [address] [place] [address] Care Team Providers Care Event Marketing Manager Name Role Phone Brandon Dumnot MD Primary Care Provider [phone] Abisai Moss MD Unavailable Nunu Steen MD Unavailable [phone] Encounter Details Date Type Department Care Team (Late st Contact Info) Description 07/07/2022 Telephone [facility] Gastroenterology at [address] [place] [address] Ginna Diaz MA Social History Tobacco Use Types Packs/Day Years Used Date Smoking Tobacco: Former Cigarettes Smokeless Tobacco: Never Comments:quit 2019 Alcohol Use Standard Drinks/Week Comments Not Currently 0 (1 standard drink = 0.6 oz pur e alcohol) Comments No Sex and Gender Information Value Date Recorded Sex Assigned at Not on file Legal Sex Female 12:50 AM ASPHALT TAMPING MACHINE OPERATOR Gender Identity Not on file Sexual Orientation Not on file documented as of this encounter Miscellaneous Notes * Telephone Encounter - Ginna Diaz MA - 07/07/2022 9:[address] called in and patient is scheduled for tomorrow, she is to have oral contrast but they have no way to give that. They have spoken to the radiologist who recommends not doing oral contrast with thecode for the procedure. They are asking if you can please change the order. documented in this encounter Plan of Treatment Not on file documented as of this encounter Visit Diagnoses Not on filedocumented in this encounter Additional Health Concerns Infection Onset Date Last Indicated Resolved Time COVID: Recovered Comment:Added based on recent COVID infection. 05/29/2022 06/07/2022 09/26/2022 3:[address] documented as of this encounter Care Teams Event Marketing Manager Relationship Specialty Start Date End Date Brandon Dumont MD PCP - General 03/26/21 Abisai Moss MD Consulting Physician General Surgery 05/14/21 Nunu Steen MD Consulting Physician Gastroenterology 05/14/21 documented as of this encounter
--- OUTSIDE RECORDS SUMMARY | 2024-10-27 10:55 | XMS_ITS | Encounter Summary ---
Author Organization [facility] Address [address] [place] [address] Care Team Providers Care Avionics Systems Engineer Name Role Phone Brandon Dumont MD Primary Care Provider [phone] Abisai Moss MD Unavailable Nunu Steen MD Unavailable [phone] Reason for Visit * Reason Onset Date Comments Covid-19 Home Monitoring 11/23/2021 daily c all Encounter Details Date Type Department Care Team (Late st Contact Info) Description 11/23/2021 Telephone [facility] Accountable Care Organization [address] [place] [address] Jania Garcia MA [address] [place] [address] [address] [place] [address] Covid-19 Home Monitoring (daily call) Social History Tobacco Use Types Packs/Day Years Used Date Smoking Tobacco: Former Cigarettes Smokeless Tobacco: Never Comments:quit 2019 Alcohol Use Standard Drinks/Week Comments Not Currently 0 (1 standard drink = 0.6 oz pur e alcohol) Comments No Sex and Gender Information Value Date Recorded Sex Assigned at Not on file Legal Sex Female 12:50 AM POLICY CHANGE CLERK Gender Identity Not on file Sexual Orientation Not on file documented as of this encounter Miscellaneous Notes * Telephone Encounter - Jania Rodriguez MA - 11/23/2021 9:00 AM POLICY CHANGE CLERK [facility] Day 2 COVID Home Monitoring Unable to Reach Called patient for home monitoring MA assessment. Unable to reach patient. Patient will receive follow up call tomorrow. CY CHANGE CLERK documented in this encounter Plan of Treatment Not on file documented as of this encounter Visit Diagnoses Not on filedocumented in this encounter Additional Health Concerns Infection Onset Date Last Indicated Resolved Time COVID19 11/14/2021 11/14/2021 11/24/2021 3:06 AM POLICY CHANGE CLERK documented as of this encounter Care Teams Avionics Systems Engineer Relationship Specialty Start Date End Date Brandon Dumont MD PCP - General 03/26/21 Abisai Moss MD Consulting Physician General Surgery 05/14/21 Nunu Steen MD Consulting Physician Gastroenterology 05/14/21 documented as of this encounter
--- OUTSIDE RECORDS SUMMARY | 2024-10-27 10:55 | XMS_ITS | Encounter Summary ---
Author Organization [facility] Healthcare Address [address] [place] [address] Care Team Providers Care Hand Paint Mixer Name Role Phone Brandon Dumont MD Primary Care Provider [phone] Abisai Moss MD Unavailable Nunu Steen MD Unavailable [phone] Encounter Details Date Type Department Care Team (Late st Contact Info) Description 07/07/2022 Telephone [facility] [address] [place] [address] Daylin Jimenez RT Social History Tobacco Use Types Packs/Day Years Used Date Smoking Tobacco: Former Cigarettes Smokeless Tobacco: Never Comments:quit 2019 Alcohol Use Standard Drinks/Week Comments Not Currently 0 (1 standard drink = 0.6 oz pur e alcohol) Comments No Sex and Gender Information Value Date Recorded Sex Assigned at Not on file Legal Sex Female 12:50 AM BUTCHER'S ASSISTANT Gender Identity Not on file Sexual Orientation Not on file documented as of this encounter Miscellaneous Notes * Telephone Encounter - Daylin Jimenez RT - 07/07/2022 11:11 AM CDT CONF APPT documented in this encounter Plan of Treatment Not on file documented as of this encounter Visit Diagnoses Not on filedocumented in this encounter Additional Health Concerns Infection Onset Date Last Indicated Resolved Time COVID: Recovered Comment:Added based on recent COVID infection. 05/29/2022 06/07/2022 09/26/2022 3:[address] documented as of this encounter Care Teams Hand Paint Mixer Relationship Specialty Start Date End Date Brandon Dumont MD PCP - General 03/26/21 Abisai Moss MD Consulting Physician General Surgery 05/14/21 Nunu Steen MD Consulting Physician Gastroenterology 05/14/21 documented as of this encounter
--- OUTSIDE RECORDS SUMMARY | 2024-10-27 10:55 | XMS_ITS | Encounter Summary ---
Author Organization [facility] Address [address] [place] [address] [address] [place] [address] Care Team Providers Care Imcu Specialist Name Role Phone Brandon Dumont MD Primary Care Provider [phone] Abisai Moss MD Unavailable Nunu Steen MD Unavailable [phone] Reason for Visit * Reason Onset Date Comments Covid-19 Home Monitoring 11/22/2021 Encounter Details Date Type Department Care Team (Late st Contact Info) Description 11/22/2021 Telephone [facility] Accountable Care Organization [address] [place] [address] Lulu Sutton LPN [address] [place] [address] Covid-19 Home Monitoring Social History Tobacco Use Types Packs/Day Years Used Date Smoking Tobacco: Former Cigarettes Smokeless Tobacco: Never Comments:quit 2019 Alcohol Use Standard Drinks/Week Comments Not Currently 0 (1 standard drink = 0.6 oz pur e alcohol) Comments No Sex and Gender Information Value Date Recorded Sex Assigned at Not on file Legal Sex Female 12:50 AM GERONTOLOGY AIDE Gender Identity Not on file Sexual Orientation Not on file documented as of this encounter Miscellaneous Notes * Telephone Encounter - Lulu Roe LPN - 11/22/2021 9:16 AM GERONTOLOGY AIDE This patient has enrolled in the PHONE ONLY version of COVID-19 Home Monitoring Program. COVID-19 Symptom questionnaire was not completed today, because the patient could not be reached. Next Program Call Due: 11/23 [facility] day 1 NTOLOGY AIDE documented in this encounter Plan of Treatment Not on file documented as of this encounter Visit Diagnoses Not on filedocumented in this encounter Additional Health Concerns Infection Onset Date Last Indicated Resolved Time COVID19 11/14/2021 11/14/2021 11/24/2021 3:06 AM GERONTOLOGY AIDE documented as of this encounter Care Teams Imcu Specialist Relationship Specialty Start Date End Date Brandon Dumont MD PCP - General 03/26/21 Abisai Moss MD Consulting Physician General Surgery 05/14/21 Nunu Steen MD Consulting Physician Gastroenterology 05/14/21 documented as of this encounter
--- OUTSIDE RECORDS SUMMARY | 2024-10-27 10:55 | XMS_ITS | Encounter Summary ---
Author Organization [facility] Address [address] [place] [address] Care Team Providers Care Furniture Fabricator Name Role Phone Brandon Dumont MD Primary Care Provider [phone] Abisai Moss MD Unavailable Nunu Steen MD Unavailable [phone] Reason for Visit * Reason Onset Date Comments Covid-19 Home Monitoring 11/17/2021 daily c all Encounter Details Date Type Department Care Team (Late st Contact Info) Description 11/17/2021 Telephone [facility] Accountable Care Organization [address] [place] [address] Jania Garcia MA [address] [place] [address] [address] [place] [address] Covid-19 Home Monitoring (daily call) Social History Tobacco Use Types Packs/Day Years Used Date Smoking Tobacco: Former Cigarettes Smokeless Tobacco: Never Comments:quit 2019 Alcohol Use Standard Drinks/Week Comments Not Currently 0 (1 standard drink = 0.6 oz pur e alcohol) Comments No Sex and Gender Information Value Date Recorded Sex Assigned at Not on file Legal Sex Female 12:50 AM CAFE ATTENDANT Gender Identity Not on file Sexual Orientation Not on file documented as of this encounter Miscellaneous Notes * Telephone Encounter - Jania Rodriguez MA - 11/17/2021 9:00 AM CAFE ATTENDANT COVID-19 Home Monitoring Flowsheet Answers: Temp/Pulse Ox [...] was not needed. Next Program Call Due: 11/18 ATTENDANT documented in this encounter Plan of Treatment Not on file documented as of this encounter Visit Diagnoses Not on filedocumented in this encounter Additional Health Concerns Infection Onset Date Last Indicated Resolved Time COVID19 11/14/2021 11/14/2021 11/24/2021 3:06 AM CAFE ATTENDANT documented as of this encounter Care Teams Furniture Fabricator Relationship Specialty Start Date End Date Brandon Dumont MD PCP - General 03/26/21 Abisai Moss MD Consulting Physician General Surgery 05/14/21 Nunu Steen MD Consulting Physician Gastroenterology 05/14/21 documented as of this encounter
--- OUTSIDE RECORDS SUMMARY | 2024-10-27 10:55 | XMS_ITS | Encounter Summary ---
Author Organization [facility] Address [address] [place] [address] [address] [place] [address] Care Team Providers Care Securities Consultant Name Role Phone Brandon Dumont MD Primary Care Provider [phone] Abisai Moss MD Unavailable Nunu Steen MD Unavailable [phone] Reason for Visit * Reason Onset Date Comments Covid-19 Home Monitoring 11/21/2021 Daily C all Encounter Details Date Type Department Care Team (Late st Contact Info) Description 11/21/2021 Telephone [facility] Accountable Care Organization [address] [place] [address] Josefina Donaldson Covid-19 Home Monitoring (Daily Call) Social History Tobacco Use Types Packs/Day Years Used Date Smoking Tobacco: Former Cigarettes Smokeless Tobacco: Never Comments:quit 2019 Alcohol Use Standard Drinks/Week Comments Not Currently 0 (1 standard drink = 0.6 oz pur e alcohol) Comments No Sex and Gender Information Value Date Recorded Sex Assigned at Not on file Legal Sex Female 12:50 AM MANAGER APPOINTMENT Gender Identity Not on file Sexual Orientation Not on file documented as of this encounter Miscellaneous Notes * Telephone Encounter - Josefina Donaldson - 11/21/2021 2:56 PM CST COVID-19 Home Monitoring Flowsheet Answers: Temp/Pulse Ox Temp: (no fever) Symptom Monitoring Are you feeling short of breath today?: No Are you having a cough today?: No Are you experiencing weakness today?: No How is your appetite compared to yesterday?: Unchanged Are you vomiting?: No Are you experiencing diarrhea? : No This patient has enrolled in the PHONE ONLY version of COVID-19 Home Monitoring Program. COVID-19 Symptom questionnaire was completed today. Symptoms were addressed to be Mild. Escalation was not needed. Next Program Call Due: 11/22/21 GER APPOINTMENT documented in this encounter Plan of Treatment Not on file documented as of this encounter Visit Diagnoses Not on filedocumented in this encounter Additional Health Concerns Infection Onset Date Last Indicated Resolved Time COVID19 11/14/2021 11/14/2021 11/24/2021 3:06 AM MANAGER APPOINTMENT documented as of this encounter Care Teams Securities Consultant Relationship Specialty Start Date End Date Brandon Dumont MD PCP - General 03/26/21 Abisai Moss MD Consulting Physician General Surgery 05/14/21 Nunu Steen MD Consulting Physician Gastroenterology 05/14/21 documented as of this encounter
--- OUTSIDE RECORDS SUMMARY | 2024-10-27 10:55 | XMS_ITS | Encounter Summary ---
Author Organization [facility] Healthcare Address [address] [place] [address] Care Team Providers Care Senior Cyber Security Analyst Name Role Phone Brandon Dumont MD Primary Care Provider Abisai Moss MD Unavailable Nunu Steen MD Unavailable [phone] Encounter Details Date Type Department Care Team (Late st Contact Info) Description 12/15/2021 12:57 PM FMD TEACHER Anesthesia Event [facility] [address] [place] [address] Zack To MD 1 [place] [address] Hardik Tee MD PhD 1 [place] [address] Anesthesia Record Procedure Summary Procedure Name Responsible Anesthesiologist Anesthesia Start Time Anesthesia Stop Time COLON REMOVAL SNARE (Colon) Zack To MD 12/15/21 1257 12/15/21 1314 Events Date Time Event Comment 12/15/2021 1243 1245 In Room 1246 An Start Data 1257 An Start 1257 Start Supplemental O2 1257 Patient Positioned Laterally 1259 An Induction The patient was reevaluated immediately before moderate or deep sedation use and before anesthesia induction. 1259 Anesthesia Ready 1301 Proc Start 1314 an stop data 1314 Handoff to RN I completed my handoff [...] disposition at the time of handoff: PACU 1314 An Stop 1315 Proc Fin 1317 Out of Room Meds Name Total propofol 270 mg lidocaine 2 % PF 100 mg sodium chloride 0.9% infusion 350 mL * Agents Name O2 * Blood No blood administrations on file. Lines, Drains, and Airways Type Details Placement Removal RETIRED Surgical Site 05/11/21; 0935; Abdomen; 10/09/24 (Retired LDA, Removed/Completed by Talknote with LDA Utility); 1213 (Retired LDA, Removed/Completed by Talknote with LDA Utility) 05/11/21 0935 by Yuliya Masters RN 10/09/24 1213 by Discharge Provider, Automatic Peripheral IV Placement Date: 12/15/21; Placement Time: 1232; Catheter Size: 22 G; Orientation: Posterior, Right; Location: Wrist; Site Prep: Alcohol; Inserted by: fabricio santos rn; Insertion Attempts: 1; Patient Tolerance: Tolerated well; Removal Date: 12/15/21; Removal Time: 1412 12/15/21 1232 by Nae Santos RN 12/15/21 1412 by Josefina Telles RN documented in this encounter Social History Tobacco Use Types Packs/Day Years Used Date Smoking Tobacco: Former Cigarettes Smokeless Tobacco: Never Comments:quit 2020 Alcohol Use Standard Drinks/Week Comments Not Currently 0 (1 standard drink = 0.6 oz pur e alcohol) Comments No Sex and Gender Information Value Date Recorded Sex Assigned at Not on file Legal Sex Female 12:50 AM FMD TEACHER Gender Identity Not on file Sexual Orientation Not on file documented as of this encounter OR Notes * Anesthesia Postprocedure Evaluation - Zack To MD - 12/15/2021 1:20 PM CST Patient: Joselyn Amado Procedure Summary Date: 12/15/21 Room / Location: [facility] ENDOSCOPY ROOM 1 / [facility] Anesthesia Start: 1257 Anesthesia Stop: 1314 Procedures: COLON REMOVAL SNARE (N/A Colon) ENDO ADD ON COLON BIOPSY (N/A ) Diagnosis: Screen for colon cancer (Screen for colon cancer [Z12.11]) Providers: Nunu Steen MD Responsible Provider: Zack To MD Anesthesia Type: general/TIVA ASA Status: 3 Anesthesia Type: general/TIVA Last vitals BP 129/81 Pulse 52 Temp 36.6 ??C (97.9 ??F) (Temporal) Resp 18 SpO2 100% Anesthesia Post Evaluation Patient location during evaluation: PACU Patient participation: complete - patient participated Level of consciousness: fully awake Pain management: adequate Airway patency: adequate Evidence of recall: no Cardiovascular status: acceptable Respiratory status: acceptable Hydration status: acceptable Pt is: normothermic Nausea/Vomiting status: none No complications documented. TEACHER * Anesthesia Preprocedure Evaluation - Zack To MD - 12/15/2021 8:59 AM CST Images from the original note were not included. Anesthesia Evaluation Joselyn Amado is a 61 y.o. female Procedure(s): COLONOSCOPY * No Diagnosis Codes entered * HISTORY HPI Denies family hx of anesthetic complications. Past Medical History Information obtained from: patient and chart. Neurological + TIA Number of TIA episodes: 1. + Psychiatric history - anxiety and depression Cardiovascular Cardiac system: negative Respiratory Respiratory system: negative Hepatic / Heme Hepatic/Heme system: negative Gastrointestinal GI system: negative Renal / Renal/ system: negative Musculoskeletal/Pain + Chronic pain (Lumbar radiculopathy) - back pain. + Osteoarthritis Endocrine / Other Endocrine/Other system: negative Functional Capacity Functional capacity: 4-6 METs Review of Systems + chronic pain (Lumbar radiculopathy) Patient Active Problem List Diagnosis ??? Cigarette [...] Colon cancer screening ??? Diarrhea ??? Nausea Past Medical History: Diagnosis Date ??? Bladder spasms ??? Chronic pain 2020 ??? Gall stones ??? Hot flashes ??? Hypertension Past Surgical History: Procedure Laterality Date ??? BACK SURGERY 2017 OB History No obstetric history on file. Allergies Allergen Reactions ??? Adhesive Rash Taking? Last Dose Start Date End Date Provider cloNIDine (CATAPRES) 0.3 mg tablet -- -- Esdras Fish MD cyclobenzaprine (FLEXERIL) 10 mg tablet 08/07/20 -- Bailey Stinson NP Take 1 tablet (10 mg total) by mouth 3 (three) times a day as needed for muscle spasms diazePAM (VALIUM) 5 mg tablet 02/28/17 -- Esdras Fish MD ergocalciferol (VITAMIN D) 50,000 unit capsule -- -- Esdras Fish MD fluticasone propionate (FLONASE) 50 mcg/actuation nasal spray () 09/30/20 04/17/21 Alyce Bae DO Administer 2 sprays into each nostril daily gabapentin (NEURONTIN) 300 mg capsule 09/03/20 -- Juan José Rehman MD Take 1 capsule (300 mg total) by mouth nightly hydrALAZINE (APRESOLINE) 25 mg tablet 05/14/21 05/14/22 Nakia Kirk MD Take 1 tablet (25 mg total) by mouth 3 (three) times a day loratadine 10 mg capsule -- -- Esdras Fish MD ondansetron ODT (ZOFRAN-ODT) 8 mg disintegrating tablet 03/26/21 -- Ash Cosme MD Take 1 tablet (8 mg total) by mouth every 8 (eight) hours as needed for nausea or vomiting oxybutynin (DITROPAN) 5 mg tablet 04/16/21 -- Esdras Fish MD tapentadol ER (NUCYNTA ER) 100 mg 12 hr tablet 01/26/17 -- Esdras Fish MD venlafaxine (EFFEXOR) 75 mg tablet -- -- Esdras Fish MD Current Outpatient Medications: ??? cloNIDine (CATAPRES) 0.3 mg tablet ??? cyclobenzaprine (FLEXERIL) 10 mg tablet ??? diazePAM (VALIUM) 5 mg tablet ??? ergocalciferol (VITAMIN D) 50,000 unit capsule ??? fluticasone propionate (FLONASE) 50 mcg/actuation nasal spray ??? gabapentin (NEURONTIN) 300 mg capsule ??? hydrALAZINE (APRESOLINE) 25 mg tablet ??? loratadine 10 mg capsule ??? ondansetron ODT (ZOFRAN-ODT) 8 mg disintegrating tablet ??? oxybutynin (DITROPAN) 5 mg tablet ??? tapentadol ER (NUCYNTA ER) 100 mg 12 hr tablet ??? venlafaxine (EFFEXOR) 75 mg tablet Social History Tobacco Use Smoking Status Former Smoker ??? Years: 40.00 Smokeless Tobacco Never Used Tobacco Comment quit 2020 Substance and Sexual Activity Alcohol Use Not Currently Substance and Sexual Activity Drug Use Not on file Family History Problem Relation Age of Onset ??? Heart attack Mother Family history of myocardial infarction - (Added by TW Conv) ??? Heart attack Father Family history of myocardial infarction - (Added by TW Conv) There were no vitals filed for this visit. PT: No results found for requested labs [...] Medical history, medications, and allergies reviewed. Attestation: I endorse the findings of the anesthesia pre-evaluation assessment dated: 12/15/2021. Airway Exam: Mallampati: II Cervical ROM: FROM Cardiovascular Exam: Rate: regular Pulmonary Exam: LCTA, bilat Dental Exam: Upper dentures and lower dentures Current state: Patient's current state is cooperative and interactive. Additional comments: NPO > 8 hours. Denies any symptoms of reflux. Anesthesia Plan ASA 3 My patient is approved for the Anesthesia Controlled Medication protocol when under care of a CHUCKING AND BORING MACHINE OPERATOR Planned anesthesia: General/TIVA Induction: Induction: intravenous. Postoperative Plan: No plan for postoperative opioid use. Patient's planned disposition post procedure is Outpatient. Informed Consent: Discussed plan with attending and CHUCKING AND BORING MACHINE OPERATOR. Anesthesia plan and risks discussed with patient. Consent and Attending signature: I and/or my designee have discussed the anesthesia plan, benefits, possible alternatives, parental presence at time of induction (if indicated), and clinically relevant risks that may include dental injury, unintentional awareness, and/or other complications. The patient and/or parent/legal guardian understand, and agree to proceed. All questions answered. TEACHER TEACHER TEACHER TEACHER documented in this encounter Plan of Treatment Not on file documented as of this encounter Visit Diagnoses Not on filedocumented in this encounter Administered Medications Inactive Administered Medications - up to 3 most recent administrations Medication Order MAR Action Action Date Dose Rate Site lidocaine (XYLOCAINE) 20 mg/mL (2 %) preservative free injection intravenous, As needed, Starting on Tue12/15/21 at 1259, Anesthesia Intra-op Given 12/15/2021 12:59 PM FMD TEACHER 100 mg propofoL (DIPRIVAN) 10 mg/mL IV intravenous, As needed, Starting on Tue12/15/21 at 1259, Anesthesia Intra-op Given 12/15/2021 1:13 PM FMD TEACHER 30 mg Given 12/15/2021 1:08 PM FMD TEACHER 40 mg Given 12/15/2021 1:04 PM FMD TEACHER 30 mg sodium chloride 0.9% infusion 30 mL/hr, intravenous, Continuous, Starting on Tue12/15/21 at 1300, Pre-Procedure (GI) Restarted 12/15/2021 1:00 PM FMD TEACHER Rate/Dose Verify 12/15/2021 12:57 PM FMD TEACHER 30 mL/ hr New Bag 12/15/2021 12:33 PM FMD TEACHER 30 mL/hr 30 mL/hr documented in this encounter Additional Health Concerns Infection Onset Date Last Indicated Resolved Time COVID: Recovered Comment:Added based on recent COVID infection. 11/24/2021 12/14/2021 03/24/2022 3:05 AM C DT documented as of this encounter Care Teams Senior Cyber Security Analyst Relationship Specialty Start Date End Date Brandon Dumont MD PCP - General 03/26/21 Abisai Moss MD Consulting Physician General Surgery 05/14/21 Nunu Steen MD Consulting Physician Gastroenterology 05/14/21 documented as of this encounter
--- OUTSIDE RECORDS SUMMARY | 2024-10-27 10:55 | XMS_ITS | Encounter Summary ---
Author Organization [facility] Address [address] [place] [address] Care Team Providers Care Reliability Technicians Name Role Phone Brandon Dumont MD Primary Care Provider [phone] Abisai Moss MD Unavailable Nunu Steen MD Unavailable [phone] Reason for Visit * Reason Comments Follow-up Abdominal Pain Patient states that she is still having some abdominal pain, but states it is not as bad as before Encounter Details Date Type Department Care Team (Latest Contact Info) Description 12/22/2021 2:45 PM SENIOR GL ACCOUNTANT Office Visit [facility] Gastroenterology at [address] [place] [address] Ernie Walter NP [address] [place] [address] [address] [place], [place] [id number] S/P ERCP (Primary Dx); History of cholecystectomy; Tubular adenoma of colon; Intermittent periumbilical abdominal pain; Fecal urgency Social History Tobacco Use Types Packs/Day Years Used Date Smoking Tobacco: Former Cigarettes Smokeless Tobacco: Never Comments:quit 2020 Alcohol Use Standard Drinks/Week Comments Not Currently 0 (1 standard drink = 0.6 oz pur e alcohol) Comments No Sex and Gender Information Value Date Recorded Sex Assigned at Not on file Legal Sex Female 12:50 AM SENIOR GL ACCOUNTANT Gender Identity Not on file Sexual Orientation Not on file documented as of this encounter Last Filed Vital Signs Vital Sign Reading Time Taken Comments Blood Pressure 132/82 12/22/2021 2:58 PM SENIOR GL ACCOUNTANT Pulse 51 12/22/2021 2:58 PM SENIOR GL ACCOUNTANT Temperature - - Respiratory Rate - - Oxygen Saturation 98% 12/22/2021 2:58 PM SENIOR GL ACCOUNTANT Inhaled Oxygen Concentration - - Weight 61.7 kg (136 lb) 12/22/2021 2:58 PM SENIOR GL ACCOUNTANT Height 165.1 cm (5' 5 ) 12/22/2021 2:58 PM SENIOR GL ACCOUNTANT Body Mass Index 22.63 12/22/2021 2:58 PM SENIOR GL ACCOUNTANT documented in this encounter Progress Notes * Ernie Barrett, ROHAN - 12/22/2021 2:45 PM CST Images from the original note were not included. PATIENT DEMOGRAPHICS Joselyn Amado is a 61 y.o. Black Or female. PATIENT'S CARE TEAM Patient Care Team: Brandon Dumont MD as PCP - Abisai Way MD as Consulting Physician (General Surgery) Nunu Steen MD as Consulting Physician (Gastroenterology) EMOGRAPHICS CHIEF COMPLAINT Chief Complaint Patient presents with ??? Follow-up ??? Abdominal Pain Patient states that she is still having some abdominal pain, but states it is not as bad as before HPI New or existing patient visit: Existing. Referring Provider: Brandon Dumont MD Joselyn is here today for follow up. NEISHA with me was 05/26/21; weight is down 5 lbs since that time.Doing well. No significant abdominal pain other than on rare occasion and it is around the belly button and slightly R sided when it occurs. No epigastric pain. No nausea or vomiting. No significant HB/Reflux. No constipation or diarrhea issues. Sometimes has fecal urgency after eating a fattier meal. Has had no fecal urgency or abdominal pain since recent colonoscopy. Had colonoscopy with Dr. Steen 12/15/21. 4 polyps removed (2 TA, 2 hyperplastic); advised to repeat in 3 years. She was hospitalized with right upper quadrant pain, nausea, and vomiting on 05/10/21 (discharged ). Diagnosed with acute cholecystitis. Underwent lap lazaro with cholangiogram by Dr. Moss on05/11/2021. Pt was found to have a filling defect on intra op cholangiogram that could not be removed, and with pt having??elevated LFTs and??continued abdominal pain after surgery, GI was consulted for possible ERCP.??Had ERCP with sphincterotomy done on 05/12 (with Dr. Steen), and no stone was found. Last labs done 05/26/22 and at that time, alk phos was down to 143; ALT and AST had normalized. On 05/10/2021 lipase and liver enzymes were normal. After surgery, on 05/12 alk-phos was elevated at 151; ALT elevated at 197; an AST elevated at 135. By 05/13 alk phos was normal at 126; ALT elevated at 126; AST normal at 43. After ERCP on 05/14/2021, alk-phos was 248; ALT 234; an AST 146. REVIEW OF SYSTEMS Review of Systems Constitutional: Negative for activity change, appetite change, chills, diaphoresis, fatigue, fever,and unexpected weight change. HENT: Negative for congestion, drooling, mouth sores, postnasal drip, rhinorrhea, sore throat, trouble swallowing, and voice change. Respiratory: Negative for cough, choking, chest tightness, shortness of breath, wheezing, and stridor. Cardiovascular: Negative for chest pain, palpitations, and leg swelling. Gastrointestinal: No problematic GI symptoms at present. Will rarely have R sided periumbilical pain- none since recent colonoscopy. Will rarely having fecal urgency after eating a fattier/greasier meal. Genitourinary: Negative for difficulty urinating, dysuria, frequency, and urgency. Musculoskeletal: Negative for arthralgias and myalgias. Skin: Negative for pallor and rash. Neurological: Negative for dizziness, light-headedness, and headaches. Psychiatric/Behavioral: Negative for decreased concentration, dysphoric mood, and sleep disturbance. The patient is not nervous/anxious. MEDICAL HISTORY Patient's active problem list, medical history, surgical history, social history, and family history were reviewed and updated as needed. Patient Active Problem List Diagnosis Date Noted ??? Epigastric pain 05/26/2021 ??? S/P ERCP 05/26/2021 ??? Colon cancer screening 05/26/2021 ??? Diarrhea 05/26/2021 ??? Nausea 05/26/2021 ??? Uterine leiomyoma ??? Abnormality of rectum 05/12/2021 ??? Cholecystitis 05/10/2021 ??? Anxiety 05/10/2021 ??? Elevated liver enzymes 05/10/2021 Added automatically from request for surgery [id number] ??? Choledocholithiasis with acute cholecystitis 05/10/2021 Added automatically from request for surgery [id number] ??? Referred otalgia of left ear 09/30/2020 ??? Allergic rhinitis 09/30/2020 ??? Cigarette nicotine dependence, uncomplicated 02/28/2017 ??? Tobacco use 02/28/2017 ??? Decrease in appetite 01/17/2017 ??? Degeneration of intervertebral disc of lumbar region 01/17/2017 ??? Irritable mood 01/17/2017 ??? Lumbar radiculopathy 01/17/2017 ??? Menopause present 01/17/2017 Past Medical History: Diagnosis Date ??? Bladder spasms ??? Chronic pain 2019 ??? Gall stones ??? Hot flashes ??? Hypertension Past Surgical History: Procedure Laterality Date ??? BACK SURGERY 2016 ??? COLONOSCOPY 12/15/2021 Family History Problem Relation Age of Onset ??? Heart attack Mother Family history of myocardial infarction - (Added by TW Conv) ??? Heart attack Father Family history of myocardial infarction - (Added by TW Conv) Social History Tobacco Use ??? Smoking status: Former Smoker Years: 40.00 ??? Smokeless tobacco: Never Used ??? Tobacco comment: quit 2019 Vaping Use ??? Vaping Use: Never used Substance Use Topics ??? Alcohol use: Not Currently MEDICATIONS Current Outpatient Medications: ??? cloNIDine (CATAPRES) 0.3 mg tablet ??? cyclobenzaprine (FLEXERIL) 10 mg tablet ??? diazePAM (VALIUM) 5 mg tablet ??? ergocalciferol (VITAMIN D) 50,000 unit capsule ??? gabapentin (NEURONTIN) 300 mg capsule ??? hydrALAZINE (APRESOLINE) 25 mg tablet ??? loratadine 10 mg capsule ??? ondansetron ODT (ZOFRAN-ODT) 8 mg disintegrating tablet ??? oxybutynin (DITROPAN) 5 mg tablet ??? tapentadol ER (NUCYNTA ER) 100 mg 12 hr tablet ??? venlafaxine (EFFEXOR) 75 mg tablet ??? fluticasone propionate (FLONASE) 50 mcg/actuation nasal spray Medications were reviewed and updated as needed. ALLERGIES Allergies Allergen Reactions ??? Adhesive Rash Allergies were reviewed and updated as needed. PHYSICAL EXAM BP 132/82 (BP Location: Left arm, Patient Position: Sitting) Pulse 51 Ht 165.1 cm (5' 5 ) Wt 61.7 kg (136 lb) SpO2 98% BMI 22.63 kg/m?? No LMP recorded. Patient is postmenopausal. Physical Exam Constitutional: General: No acute distress. Appearance: Not ill-appearing. Weight is healthy. HENT: Head: Normocephalic and atraumatic. Mouth/Throat: Mouth: Mucous membranes are moist. Pharynx: Oropharynx is clear. No posterior oropharyngeal erythema. Eyes: General: No scleral icterus. Neck: Thyroid: No thyroid mass or thyromegaly. Trachea: Trachea normal. Cardiovascular: Rate and Rhythm: Normal rate and regular rhythm. Heart sounds: No murmur heard. Appearance: No edema in legs. Pulmonary: Effort: Pulmonary effort is normal. Breath sounds: Normal breath sounds. Abdominal: General: Bowel sounds are normal. Palpations: Abdomen is soft and non-distended. Tenderness: There is no abdominal tenderness. There is no guarding or rebound. Hernia: No hernia is present. Lymphadenopathy: Cervical: No cervical adenopathy. Skin: General: Skin is warm and dry. Coloration: Skin is not jaundiced or pale. Findings: No bruising or rash. Neurological: Mental Status: Pt is alert and oriented to person, place, and time. Psychiatric: Mood and Affect: Mood normal. Behavior: Behavior normal. GI ASSESSMENT/PLAN Diagnoses and all orders for this visit: S/P ERCP (Primary) History of cholecystectomy - CBC with auto differential; Future - Comprehensive metabolic panel; Future No concerning symptoms. Appears to be doing well. Will reassess labs to make sure alk phos has fully returned to normal. Will check CBC/CMP. Tubular adenoma of colon On 3 year surveillance schedule and due for repeat colonoscopy in December. Intermittent periumbilical abdominal pain Intermittently problematic and mild when present, but no issues with this pain since recent colonoscopy, so could indicate a higher fecal load when present. If recurs, recommend she do 1 dose of OTC Miralax daily until symptoms subside (hopefully within a few days). If becomes a recurrent issue and/or does not respond to PRN Miralax, she will follow up with us. Also, recommend she consider addingin a fiber supplement daily, such as Metamucil. Fecal urgency Mild and intermittent since cholecystectomy. Only occurs after eating a greasy/fatty meal so she was encouraged to avoid these foods in order to avoid symptoms. Return for as needed . Medication(s) and/or immunization(s) uses and side effects briefly discussed. Patient verbalizes understanding of all instructions provided today and agrees with plan. This note is dictated and transcribed by [employer]. Grinder Set Up Operator variances may occur. Despite proofreading, typographical errors may occur. My collaborating physician is Dr. Nunu Steen. Ernie Barrett NP Cosigned by Nunu Steen MD at 12/23/2021 9:52 PM SENIOR GL ACCOUNTANT OR GL ACCOUNTANT OR GL ACCOUNTANT documented in this encounter Plan of Treatment Not on file documented as of this encounter Results * (ABNORMAL) CBC with auto differential (01/08/2022 4:10 PM SENIOR GL ACCOUNTANT) WBC 10.4(H) 3.8 - 9.9 K/cumm [facility] Hgb 13.9 11.9 - 15.5 g/dL [facility] Hct 39.7 35.6 - 45.5 % [facility] Plt 250 150 - 400 K/cumm [facility] MPV 9.6 9.1 - 12.3 fL [facility] RBC 5.01 3.90 - 5.20 M/cumm [facility] MCV 79.2(L) 81.3 - 96.4 fL [facility] MCH 27.7 27.1 - 33.3 pg [facility] MCHC 35.0 32.3 - 35.7 g/dL [facility] RDW CV 13.3 11.1 - 14.9 % [facility] RDW SD 38.0 35.7 - 48.1 fL [facility] NRBC abs 0.00 0.00 - 0.01 K/cumm [facility] Blood 01/08/2022 4:10 PM SENIOR GL ACCOUNTANT 01/08/2022 4:23 PM SENIOR GL ACCOUNTANT Ernie Walter HAND COREMAKER LAB BLOOD ORDERABLE S Final Result [facility] Department [place] [address] * Comprehensive metabolic panel (01/08/2022 4:10 PM SENIOR GL ACCOUNTANT) Sodium 141 135 - 145 mmol/L [facility] Potassium, pl 3.6 3.3 - 4.9 mmol/L [facility] Chloride 106 97 - 110 mmol/L [facility] CO2 26 22 - 32 mmol/L [facility] Anion gap 9 2 - 15 mmol/L [facility] BUN 15 8 - 25 mg/dL [facility] Creatinine 0.92 0.60 - 1.10 mg/dL [facility] Glucose 82 70 - 199 mg/dL [facility] Comment: Interpretive Data Fasting glucose [...] interpretive data was last revised 2017. Calcium 9.2 8.5 - 10.3 mg/dL [facility] Bilirubin, total 0.2 0.1 - 1.2 mg/dL [facility] Protein, pl 6.9 6.5 - 8.5 g/dL [facility] Albumin 4.2 3.5 - 5.0 g/dL [facility] Alk phos 94 40 - 130 Units/L [facility] ALT 10 7 - 45 Units/L [facility] AST 14 10 - 45 Units/L [facility] Blood 01/08/2022 4:10 PM SENIOR GL ACCOUNTANT 01/08/2022 4:23 PM SENIOR GL ACCOUNTANT Ernie Walter HAND COREMAKER LAB BLOOD ORDERABLE S Final Result [facility] 1 [facility] Department [place] [address] documented in this encounter Visit Diagnoses Diagnosis S/P ERCP- Primary History of cholecystectomy Other acquired absence of organ Tubular adenoma of colon Benign neoplasm of colon Intermittent periumbilical abdominal pain Fecal urgency documented in this encounter Additional Health Concerns Infection Onset Date Last Indicated Resolved Time COVID: Recovered Comment:Added based on recent COVID infection. 11/24/2021 12/14/2021 03/24/2022 3:05 AM C DT documented as of this encounter Care Teams Reliability Technicians Relationship Specialty Start Date End Date Brandon Dumont MD PCP - General 03/26/21 Abisai Moss MD Consulting Physician General Surgery 05/14/21 Nunu Steen MD Consulting Physician Gastroenterology 05/14/21 documented as of this encounter
--- OUTSIDE RECORDS SUMMARY | 2024-10-27 10:55 | XMS_ITS | Encounter Summary ---
Author Organization [facility] Address [address] [address] Care Team Providers Care Kitchen Food Server Name Role Phone Brandon Dumont MD Primary Care Provider [phone] Abisai Moss MD Unavailable Nunu Steen MD Unavailable [phone] Reason for Visit * Reason Onset Date Comments Covid-19 Home Monitoring 11/15/2021 enrollm ent Encounter Details Date Type Department Care Team (Late st Contact Info) Description 11/15/2021 Telephone [facility] Accountable Care Organization [address] [place] [id number] Linda Hough. [address] [place] [id number] Covid-19 Home Monitoring (enrollment) Social History Tobacco Use Types Packs/Day Years Used Date Smoking Tobacco: Former Cigarettes Smokeless Tobacco: Never Comments:quit 2019 Alcohol Use Standard Drinks/Week Comments Not Currently 0 (1 standard drink = 0.6 oz pur e alcohol) Comments No Sex and Gender Information Value Date Recorded Sex Assigned at Not on file Legal Sex Female 12:50 AM SENIOR QUALITY CONTROL INSPECTOR Gender Identity Not on file Sexual Orientation Not on file documented as of this encounter Miscellaneous Notes * Telephone Encounter - Linda Hough - 11/15/2021 11:23 AM CST This patient was identified as a candidate for the [facility] COVID home monitoring program. The patient was contacted via phone for enrollment in the program. The patient has declined to participate in the automated MyChart Warehouse Supervisor 3Rd Shift Program, but has verbally agreed to the Phone Only Home Monitoring Program, which includes being contacted for a daily phone assessment by a [facility] staff member. The patient was informed that [...] the phone only version of the program. COVID-19 Home Monitoring Flowsheet Answers: Temp/Pulse Ox Temp: (not feverish) Symptom Monitoring Are you feeling short of breath today?: No Are you having a cough today?: Yes Cough Details:: Same Are you experiencing weakness today?: Yes Weakness Details:: Better How is your appetite compared to yesterday?: Unchanged Are you vomiting?: No Are you experiencing diarrhea? : No This patient has enrolled in the PHONE ONLY version of COVID-19 Home Monitoring Program. COVID-19 Symptom questionnaire was completed today. Symptoms were addressed to be Mild. Escalation was not needed. Next Program Call Due: 11/16 OR QUALITY CONTROL INSPECTOR documented in this encounter Plan of Treatment Not on file documented as of this encounter Visit Diagnoses Not on filedocumented in this encounter Additional Health Concerns Infection Onset Date Last Indicated Resolved Time COVID19 11/14/2021 11/14/2021 11/24/2021 3:06 AM SENIOR QUALITY CONTROL INSPECTOR documented as of this encounter Care Teams Kitchen Food Server Relationship Specialty Start Date End Date Brandon Dumont MD PCP - General 03/26/21 Abisai Moss MD Consulting Physician General Surgery 05/14/21 Nunu Steen MD Consulting Physician Gastroenterology 05/14/21 documented as of this encounter
--- OUTSIDE RECORDS SUMMARY | 2024-10-27 10:55 | XMS_ITS | Encounter Summary ---
Author Organization [facility] Healthcare Address [address] [place] [address] Care Team Providers Care Clerical Dentist Assistant Name Role Phone Brandon Dumont MD Primary Care Provider [phone] Abisai Moss MD Unavailable Nunu Steen MD Unavailable [phone] Encounter Details Date Type Department Care Team (Late st Contact Info) Description 06/14/2022 11:20 AM CDT [address] Nunu Steen MD [address] [place] [id number] Jania See PA [address] [place] [id number] Weight loss Discharge Disposition: Discharge to home or self care Social History Tobacco Use Types Packs/Day Years Used Date Smoking Tobacco: Former Cigarettes Smokeless Tobacco: Never Comments:quit 2019 Alcohol Use Standard Drinks/Week Comments Not Currently 0 (1 standard drink = 0.6 oz pur e alcohol) Comments No Sex and Gender Information Value Date Recorded Sex Assigned at Not on file 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 Sex 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 Gender Identity Not on file Sexual Orientation Not on file documented as of this encounter Discharge Disposition Disposition Code Departure Means Destination Discharge to home or self care documented in this encounter Plan of Treatment Not on file documented as of this encounter Procedures Procedure Name Priority Date/Time Associated Diagnosis Comments EGFR Routine 06/14/2022 11:20 AM CDT Weight loss DIFFERENTIAL AUTO Routine 06/14/2022 11: 20 AM CDT Weight loss CBC WITH AUTO DIFFERENTIAL Routine 06/14/2022 11:20 AM CDT Weight loss COMPREHENSIVE METABOLIC PANEL Routine 06/14/2022 11:20 AM CDT Weight loss documented in this encounter Results * eGFR (06/14/2022 11:20 AM CDT) eGFR 72 mL/min/1. 73 m2 [facility] ([place]) Comment: Interpretive Data Reference Interval Normal ?>/= [...] of Race in Diagnosing Kidney Disease, JASN 202). The CKD-EPI equation should not be used for patients with unstable renal function and has not been validated in children and those over 70. Current interpretive data was last reviewed 2021. Blood 06/14/2022 11:2 0 AM CDT 06/14/2022 1:26 PM CDT us Jania [facility] LAB BLOOD ORDERABLES Fin al Result [facility] ([place]) [facility] Department [place] [address] * (ABNORMAL) Differential, auto (06/14/2022 11:20 AM CDT) Neutrophil abs 6.3 1.7 - 6.5 K/cumm [facility] ([place]) Imm gran abs 0.0 0.0 - 0.1 K/cumm [facility] ([place]) Lymphocyte abs 3.6(H) 0.8 - 3.3 K/cumm [facility] ([place]) Monocyte abs 0.6 0.2 - 0.8 K/cumm [facility] ([place]) Eosinophil abs 0.3 0.0 - 0.5 K/cumm [facility] ([place]) Basophil abs 0.1 0.0 - 0.1 K/cumm [facility] ([place]) Neutrophil pct 57.7 % [facility] ([place]) Comment: Interpretive Data Percent cell count reference ranges are not reported, since discordance with absolute values may lead to misinterpretation of CBC data. Current Interpretive Data was last revised on 2018. Imm gran pct 0.3 % [facility] ([place]) Comment: Interpretive Data [...] was last revised on 2018. Monocyte pct 5.6 % [facility] ([place]) Comment: Interpretive Data Percent cell count reference ranges are not reported, since discordance with absolute values may lead to misinterpretation of CBC data. Current Interpretive Data was last revised on 2018. Eosinophil pct 2.6 % [facility] ([place]) Comment: Interpretive [...] Data was last revised on 2018. Blood 06/14/2022 11:2 0 AM CDT 06/14/2022 1:26 PM CDT Jania [facility] LAB BLOOD ORDERABLES Fin al Result [facility] ([place]) [facility] Department [place] [address] * (ABNORMAL) CBC with auto differential (06/14/2022 [...] NRBC abs 0.00 0.00 - 0.01 K/cumm [facility] ([place]) Blood 06/14/2022 11:2 0 AM CDT 06/14/2022 1:26 PM CDT us Jania [facility] LAB BLOOD ORDERABLES Fin al Result [facility] ([place]) 1 [facility] Department [place] [address] * Comprehensive metabolic panel (06/14/2022 11:20 AM [...] 0 AM CDT 06/14/2022 1:26 PM CDT Jania [facility] LAB BLOOD ORDERABLES Fin al Result [facility] ([place]) 1 [facility] Department [place] [address] documented in this encounter Visit Diagnoses Diagnosis Weight loss Loss of weight documented in this encounter Additional Health Concerns Infection Onset Date Last Indicated Resolved Time COVID: Recovered Comment:Added based on recent COVID infection. 05/29/2022 06/07/2022 09/26/2022 3:[address] documented as of this encounter Care Teams Clerical Dentist Assistant Relationship Specialty Start Date End Date Brandon Dumont MD PCP - General 03/26/21 Abisai Moss MD Consulting Physician General Surgery 05/14/21 Nunu Steen MD Consulting Physician Gastroenterology 05/14/21 documented as of this encounter
--- OUTSIDE RECORDS SUMMARY | 2024-10-27 10:55 | XMS_ITS | Encounter Summary ---
Author Organization [facility] Address [address] [place] [address] Care Team Providers Care Industrial Registered Nurse Name Role Phone Brandon Dumont MD Primary Care Provider [phone] Abisai Moss MD Unavailable Nunu Steen MD Unavailable [phone] Reason for Referral * MRI/CAT/PET Scan (Routine) - Closed Specialty Diagnoses / Procedures Referred By Naye alanis Referred To Contact Radiology Diagnoses Pancreatic cyst Procedures MRI/MRCP (abdomen) W WO CONTRAST Jania See PA [address] [place] [address] DR FRAGOSO [address] [place] [address] Phone: tel: fax: [address] [phone] Referral ID Status Reason Start Date Expiration Date Visits Re quested Visits Authorized [id number] Closed 11/19/2022 12/19/2023 1 1 ET MANAGER * Diagnostic Imaging (Routine) - Closed Specialty Diagnoses / Procedures Referred By Naye alanis Referred To Contact Diagnoses RUQ abdominal pain Epigastric pain Postprandial nausea Procedures NM Gastric Emptying Jania See PA [address] [place] [address] DR FRAGOSO [address] [place] [address] Phone: tel: fax: [address] [phone] Referral ID Status Reason Start Date Expiration Date Visits Re quested Visits Authorized [id number] Closed 11/19/2022 12/19/2023 5 5 ET MANAGER Reason for Visit * Reason Comments Follow-up Pt here for a two mo [facility] follow up. Pt reports pain upper mid abdominal that radiates to the right side constant. Pain scale 8. Abdominal Pain Encounter Details Date Type Department Care Team (Latest Contact Info) Description 11/19/2022 2:30 PM BUFFET MANAGER Office Visit [facility] Gastroenterology at [address] [place] [address] Jania See PA [address] [place] [address] [address] [place] [address] RUQ abdominal pain (Primary Dx); Epigastric pain; Postprandial nausea; History of cholecystectomy; Pancreatic cyst; Tubular adenoma of colon Social History Tobacco Use Types Packs/Day Years [...] Frequency of Alcohol Consumption Not on file 11/19/2022 Q2: How many drinks containi ng alcohol do you have on a typical day when you are drinking? Patient does not drink Frequency of Binge Drinking Not on file 11/07 Comments No Sex and Gender Information Value Date Recorded Sex Assigned at Not on file Legal Sex Female 12:50 AM BUFFET MANAGER Gender Identity Not on file Sexual Orientation Not on file documented as of this encounter Last Filed Vital Signs Vital Sign Reading Time Taken Comments Blood Pressure 132/85 11/19/2022 2:36 PM BUFFET MANAGER Pulse 75 11/19/2022 2:36 PM BUFFET MANAGER Temperature - - Respiratory Rate - - Oxygen Saturation - - Inhaled Oxygen Concentration - - Weight 59.1 kg (130 lb 3.2 oz) 11/19/2022 2:36 P M BUFFET MANAGER Height 165.1 cm (5' 5 ) 11/19/2022 2:36 PM BUFFET MANAGER Body Mass Index 21.67 11/19/2022 2:36 PM BUFFET MANAGER documented in this encounter Patient Instructions * Patient Instructions* Jania See PA - 11/19/2022 2:30 PM BUFFET MANAGER -Schedule EGD. -Trial extra-strength gasX 3x/day to see if this helps. -Continue nightly 10mg nortriptyline. -Continue colestid. -Will follow-up with repeat MRI around February for monitoring. -Continue to use zofran as needed. -Hold valium, zofran, nortriptyline prior to gastric emptying study. ET MANAGER ET MANAGER ET MANAGER ET MANAGER ET MANAGER documented in this encounter Ordered Prescriptions Prescription Sig Dispense Quantity Refills Last Filled Start Date End Date colestipoL (COLESTID) 1 gram tablet Take 1 tablet (1 g total) by mouth 2 (two) times a day as needed (diarrhea) 60 tablet 11/19/2022 3 nortriptyline (PAMELOR) 10 mg capsule Take 1 capsule (10 mg total) by mouth nightly 30 capsule 2 11/19/2022 3 ondansetron ODT (ZOFRAN-ODT) 8 mg disintegrating tablet Take 1 tablet (8 mg total) by mouth every 8 (eight) hours as needed for nausea or vomiting 30 tablet 11/19/2022 3 documented in this encounter Progress Notes * Jania See PA - 11/19/2022 2:30 PM CST Images from the original note were not included. FOLLOW-UP VISIT Chief Complaint Patient presents with Follow-up Pt here for a two month follow up. Pt reports pain upper mid abdominal that radiates to the right side constant. Pain scale 8. Abdominal Pain SUBJECTIVE: HPI: Ms. Amado is following up for Follow-up (Pt here for a two month follow up. Pt reports pain upper mid abdominal that radiates to the right side constant. Pain scale 8.) and Abdominal Pain Patient is presenting to the office today as a follow-up for RUQ/epigastric abdominal pain. Last office visit was with me 09/14/2022. At that time patient was started on low-dose 10 mg nortriptyline nightly. She feels like this medication has somewhat helped her symptoms, but they are persistent. Admits to continued epigastric/right upper quadrant abdominal pain. She does admit to intermittent episodes of associated postprandial nausea. Denies any specific food triggers. Denies vomiting. Statesthat since starting Colestid, her stools have improved. She is no longer experience fecal urgency or diarrhea. She is having daily formed bowel movements. Denies heartburn, reflux, dysphagia. Denies recent unintentional weight loss, fevers. Past Medical History: Diagnosis Date Bladder spasms [...] 0 atorvastatin (LIPITOR) 10 mg tablet Take 10 mg by mouth daily benzonatate (TESSALON) 200 mg [...] needed ergocalciferol (VITAMIN D) 50,000 unit capsule fluticasone propionate (FLONASE) 50 mcg/actuation nasal spray [...] mouth losartan (COZAAR) 25 mg tablet Take 25 mg by mouth daily methylPREDNISolone (Medrol, Talon,) 4 mg Dosepack follow package directions 1 packet 0 nicotine (NICODERM CQ) 14 mg oxybutynin (DITROPAN) 5 mg tablet tapentadol ER (NUCYNTA ER) 100 mg 12 hr tablet Take 100 mg by mouth 2 times daily venlafaxine (EFFEXOR) 75 mg tablet Take 75 mg by mouth nightly [DISCONTINUED] colestipoL (COLESTID) 1 gram tablet Take 1 tablet (1 g total) by mouth 2 (two) timesa day as needed (diarrhea) 60 tablet 0 [DISCONTINUED] nortriptyline (PAMELOR) 10 mg capsule Take 1 capsule (10 mg total) by mouth nightly 30 capsule 1 [DISCONTINUED] ondansetron ODT (ZOFRAN-ODT) 8 mg disintegrating tablet Take 1 tablet (8 mg total) by mouth every 8 (eight) hours as needed for nausea or vomiting 30 tablet 0 [DISCONTINUED] lidocaine viscous (XYLOCAINE) 2 % solution Gargle, swish and swallow/spit 5mL every six hours as needed for discomfort. Do not exceed maximum dose of of 4 times daily. (Patient not taking: Reported on 10/14/2022) 100 mL 0 No current facility-administered medications on file prior to visit. Family History Problem Relation Age of Onset Heart attack Mother Family history of myocardial infarction - (Added by TW Conv) Heart attack Father Family history of myocardial infarction - (Added by TW Conv) Social History Tobacco Use Smoking status: Former Packs/day: 0.75 Years: 40.00 Pack years: 30.00 Types: Cigarettes Smokeless tobacco: Never Tobacco comments: quit 2020 ARestarted 2 mo ago after daughter . Currently on 14mg patches Substance and Sexual Activity Drug use: Yes Types: Tobacco, Muscle relaxant Sexual activity: Defer Alcohol Use: Unknown Frequency of Alcohol Consumption: Not on file Average Number of Drinks: Patient does not drink Frequency of Binge Drinking: Not on file Allergies Allergen Reactions Adhesive Rash ROS: Review of Systems Constitutional: Negative for [...] leg swelling. Gastrointestinal: Positive for abdominal pain and nausea. Negative for abdominal distention, anal bleeding, blood in stool, constipation, diarrhea, rectal pain and vomiting. Genitourinary: Negative for dysuria, frequency, hematuria and urgency. Musculoskeletal: Negative for arthralgias and myalgias. Skin: Negative for pallor and rash. Neurological: Negative for dizziness, tremors, syncope, weakness and light-headedness. Psychiatric/Behavioral: Negative for confusion and dysphoric mood. The patient is not nervous/anxious. OBJECTIVE: Vitals BP 132/85 (BP Location: Left arm, Patient Position: Sitting) Pulse 75 Ht 165.1 cm (5' 5 ) Wt 59.1 kg (130 lb 3.2 oz) BMI 21.67 kg/m?? Exam: Physical Exam Vitals reviewed. Constitutional: [...] known visit with results is: Lab on 08/12/2022 Component Date Value Creatinine, bld 08/12/2022 1.13 GI Assessment & Plan: Diagnoses and all orders for this visit: RUQ abdominal pain (Primary) Epigastric pain Postprandial nausea Persistent RUQ/epigastric pain with intermittent episodes of associated postprandial nausea. Some relief with use of nortriptyline nightly and zofran prn. Of note, patient also on flexeril, valium, gabapentin. Due to persistent symptoms, will get patient scheduled for EGD. Will also schedule gastric emptying study to see if there is a component of delayed emptying. If these tests are unremarkable, pain is likely functional. - NM Gastric Emptying; Future History of cholecystectomy No further issues with fecal urgency or diarrhea. Continue colestid - refill sent. Avoid any known trigger foods, including greasy/fatty foods. Pancreatic cyst Patient had multiple pancreatic cysts noted on CT and MRI. CA19-9 negative. Will repeat MRI in February for repeat evaluation of the cysts per radiology recommendation. Tubular adenoma of colon Patient has a history of tubular adenoma. She is on a 3 year screening schedule for colonoscopy, and is due in December 2024. Other orders - ondansetron ODT (ZOFRAN-ODT) 8 mg disintegrating tablet; Take 1 tablet (8 mg total) by mouth every 8 (eight) hours as needed for nausea or vomiting - nortriptyline (PAMELOR) 10 mg capsule; Take 1 capsule (10 mg total) by mouth nightly - colestipoL (COLESTID) 1 gram tablet; Take 1 tablet (1 g total) by mouth 2 (two) times a day as needed (diarrhea) Total time spent on the date of the aqnb-np-cdol encounter, including both imza-of-zeqx time (including staff/provider time spent providing education) and cfh-obqs-kd-face time (pre-charting, reviewing chart, post-charting) was 35 minutes. This note is dictated and transcribed by [employer]. Sales And Marketing Manager variances may occur. Despite proofreading, typographical errors may occur. My collaborating physician is Dr. Nunu Steen- Gastroenterology. VENESSA Chen ET MANAGER documented in this encounter Miscellaneous Notes * Addendum Note - Jenae Sharma - 11/19/2022 2:30 PM CSTAddended by: JENAE SHARMA on: 11/19/2022 04:24 PM Modules accepted: Orders ET MANAGER documented in this encounter Plan of Treatment [...] 4:13 PM - Electronically signed by ??Clement De Los Santos M.D. JA: POWER D: ??03/29/2023 4:13 PM T: ??03/29/2023 4:13 PM Report ID: [id number] Reading Location: ??[id number] Procedure Note Clement De Los Santos MD [...] Los Santos M.D. JA: POWER Report ID: [id number] Reading Location: [id number] Jania [facility] IMG MRI PROCEDURES Final Result * NM Gastric Emptying (12/06/2022 1:52 PM BUFFET MANAGER) Anatomical Region Laterality Modality Body N/A Nuclear Medicine 12/06/2022 2:28 PM BUFFET MANAGER Narrative 12/06/2022 2:29 PM BUFFET MANAGER EXAM DESCRIPTION: ?? NM GASTRIC EMPTYING STUDY [...] PM T: ??12/06/2022 2:29 PM Report ID: [id number] Reading Location: ??[id number] Procedure Note Michael Harris MD - 12/06/2022 [...] Michael Harris M.D. BC: PRITI Report ID: [id number] Reading Location: [place] [address] Jania CLIFFORD G NM PROCEDURES Final Result documented in this encounter Visit Diagnoses Diagnosis RUQ abdominal pain- Primary Abdominal pain, right upper quadrant Epigastric pain Abdominal pain, epigastric Postprandial nausea History of cholecystectomy Other acquired absence of organ Pancreatic cyst Cyst and pseudocyst of pancreas Tubular adenoma of colon Benign neoplasm of colon RUQ abdominal pain Abdominal pain, right upper quadrant Epigastric pain Abdominal pain, epigastric Postprandial nausea Pancreatic cyst Cyst and pseudocyst of pancreas documented in this encounter Discontinued Medications Medication Sig Discontinue Reason Start Date End Da te lidocaine viscous (XYLOCAINE) 2 % solutionIndications:Sore throat due to virus Gargle, swish and swallow/spit 5mL every six hours as needed for discomfort. Do not exceed maximum dose of of 4 times daily. 05/19/2022 11/19/2022 ondansetron ODT (ZOFRAN-ODT) 8 mg disintegrating tablet Take 1 tablet (8 mg total) by mouth every 8 (eight) hours as needed for nausea or vomiting Reorder 03/26/2021 11/19/2022 colestipoL (COLESTID) 1 gram tablet Take 1 tablet (1 g total) by mouth 2 (two) times a day as needed (diarrhea) Reorder 09/14/2022 11/19/2022 nortriptyline (PAMELOR) 10 mg capsule Take 1 capsule (10 mg total) by mouth nightly Reorder 09/14/2022 11/19/2022 documented as of this encounter Historical Medications * This list may reflect changes made after this encounter. losartan (COZAAR) 25 mg tablet Take 1 tablet (25 mg total) by mouth daily 10/08/2022 atorvastatin (LIPITOR) 10 mg tablet Take 1 tablet (10 mg total) by mouth daily 10/15/2022 added in this encounter Orders Case Request Count Last Ordered Date First Orde red Date CASE REQUEST GI 1 11/19/2022 documented in this encounter Care Teams Industrial Registered Nurse Relationship Specialty Start Date End Date Brandon Dumont MD PCP - General 03/26/21 Abisai Moss MD Consulting Physician General Surgery 05/14/21 Nunu Steen MD Consulting Physician Gastroenterology 05/14/21 documented as of this encounter
--- OUTSIDE RECORDS SUMMARY | 2024-10-27 10:55 | XMS_ITS | Encounter Summary ---
Author Organization [facility] Healthcare Address [address] [place] [address] Care Team Providers Care Machinist Name Role Phone Brandon Dumont MD Primary Care Provider Abisai Moss MD Unavailable Nunu Steen MD Unavailable Reason for Referral * MRI/CAT/PET Scan (Routine) - Closed Specialty Diagnoses / Procedures Referred By Contac t Referred To Contact Radiology Diagnoses Weight loss Procedures CT Chest Abdomen Pelvis W Contrast Jania See PA [address] [place] [address] DR FRAGOSO [address] [place] [address] Phone: tel: fax: [address] [phone] Referral ID Status Reason Start Date Expiration Date Visits Re quested Visits Authorized [id number] Closed 06/14/2022 07/31/2022 1 1 Reason for Visit * MRI/CAT/PET Scan (Routine) - Closed Specialty Diagnoses / Procedures Referred By Contac t Referred To Contact Radiology Diagnoses Weight loss Procedures CT Chest Abdomen Pelvis W Contrast Jania See PA [address] [place] [address] DR FRAGOSO [address] [place] [address] Phone: tel: fax: [address] [phone] Referral ID Status Reason Start Date Expiration Date Visits Re quested Visits Authorized [id number] Closed 06/14/2022 07/31/2022 1 1 Encounter Details Date Type Department Care Team (Latest Contact Info) Description 07/08/2022 3:06 PM CDT - 07/08/2022 11:59 PM CDT Hospital Encounter [facility] [address] [place] [address] Nunu Steen MD [address] [facility] [address] FRAGOSO [address] [place] [address] Jania See PA [address] [facility] [address] [place] [address] Weight loss Discharge Disposition: Discharge to home [...] on file 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 ML: ML Report ID: [id number] Reading Location: [place] [address] PROCEDURES Final Result * Creatinine, whole blood (07/08/2022 3:15 PM CDT) Creatinine, bld 1.19 0.60 - 1.30 mg/dL [facility] ([facility]) Blood 07/08/2022 3:15 PM CDT 07/08/2022 3:18 PM CDT Jania [facility] LAB BLOOD ORDERABLES Fin al Result [facility] ([facility]) 1 [facility] Department [place] [address] documented in this encounter Visit Diagnoses Diagnosis Weight loss Loss of weight documented in this encounter Administered Medications Inactive Administered Medications - up to 3 most recent administrations Medication Order MAR Action Action Date Dose Rate Site iohexoL (OMNIPAQUE 12) 12 mg iodine/mL solution 1 Bottle 1 Bottle, oral, Once in imaging, contrast, Starting on Ailyn 07/08/22 at 1554, For 1 dose Contrast Given 07/08/2022 4:20 PM CDT 1 Bottle ioversoL (OPTIRAY 350) injection 75 mL 75 mL, intravenous, Once in imaging, contrast, Starting on Ailyn 07/08/22 at 1554, For 2 doses Contrast Given 07/08/2022 4:20 PM CDT 75 mL documented in this encounter Additional Health Concerns Infection Onset Date Last Indicated Resolved Time COVID: Recovered Comment:Added based on recent COVID infection. 05/29/2022 06/07/2022 09/26/2022 3:[address] documented as of this encounter Care Teams Machinist Relationship Specialty Start Date End Date Brandon Dumont MD PCP - General 03/26/21 Abisai Moss MD Consulting Physician General Surgery 05/14/21 Nunu Steen MD Consulting Physician Gastroenterology 05/14/21 documented as of this encounter
--- OUTSIDE RECORDS SUMMARY | 2024-10-27 10:55 | XMS_ITS | Encounter Summary ---
Author Organization [facility] Healthcare Address [address] [place] [address] Care Team Providers Care Electrical Control Assembler Name Role Phone Brandon Dumont MD Primary Care Provider [phone] Abisai Moss MD Unavailable Nunu Steen MD Unavailable [phone] Reason for Visit * Reason Comments Eye Pain Encounter Details Date Type Department Care Team (Late st Contact Info) Description 06/13/2022 7:02 PM CDT - 06/13/2022 10:36 PM CDT Emergency [facility] Emergency Department [address] [place] [id number] Abrasion of right cornea, initial encounter (Primary Dx) Discharge Disposition: Discharge to home or self care Social History Tobacco Use Types Packs/Day Years Used Date Smoking Tobacco: Former Cigarettes Smokeless Tobacco: Never Comments:quit 2019 Alcohol Use Standard Drinks/Week Comments Not Currently 0 (1 standard drink = 0.6 oz pur e alcohol) Comments No Sex and Gender Information Value Date Recorded Sex Assigned at Not on file 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 Gender Identity Not on file Sexual Orientation Not on file documented as of this encounter Last Filed Vital Signs Vital Sign Reading Time Taken Comments Blood Pressure 108/77 06/13/2022 5:32 PM CDT Pulse 77 06/13/2022 5:30 PM CDT Temperature 36.4 ??C (97.6 ??F) 06/13/2022 5:30 PM CD T Respiratory Rate 18 06/13/2022 5:30 PM CDT Oxygen Saturation 98% 06/13/2022 5:30 PM CDT Inhaled Oxygen Concentration - - Weight 58.1 kg (128 lb) 06/13/2022 5:30 PM CDT Height 165.1 cm (5' 5 ) 06/13/2022 5:30 PM CDT Body Mass Index 21.3 06/13/2022 5:30 PM CDT documented in this encounter Discharge Diagnoses Diagnosis Injury of conjunctiva and corneal abrasion without foreign body, right eye, initial encounter - INJURY OF CONJUNCTIVA AND CORNEAL ABRASION WITHOUT FOREIGN BODY, RIGHT EYE, INITIAL ENCOUNTER Exposure to other specified factors, initial encounter - EXPOSURE TO OTHER SPECIFIED FACTORS, INITIAL ENCOUNTER Personal history of nicotine dependence - PERSONAL HISTORY OF NICOTINE DEPENDENCE documented in this encounter Discharge Instructions * Discharge Instructions* Mukul Reddy NP - 06/13/2022 8:32 PM CDT Please return to the ED if you experience fever, chills, chest pain, shortness of breath, or difficulty breathing. Please use the erythromycin eye ointment as prescribed. Please follow-up with eye doctor as listed above. * Attachments The following attachments cannot be sent through Care Everywhere. * Abrasion, Corneal (Djiboutian) documented in this encounter Medications at Time [...] tablet (75 mg total) by mouth nightly erythromycin (ILOTYCIN) ophthalmic ointment Apply to right eye every 6 (six) hours for [address] a 1/2 inch ribbon of ointment into the lower eyelid. 1 g 06/13/2022 2 benzonatate (TESSALON) 200 mg capsuleIndications: Cough Take 1 capsule (200 mg total) by mouth 3 (three) times a day as needed for cough 30 capsule 05/19/2022 4 lidocaine viscous (XYLOCAINE) 2 % solutionIndications :Sore [...] 03/26/2021 3 documented as of this encounter Ordered Prescriptions Prescription Sig Dispense Quantity Refills Last Filled Start Date End Date erythromycin (ILOTYCIN) ophthalmic ointment Apply to right eye every 6 (six) hours for [address] a 1/2 inch ribbon of ointment into the lower eyelid. 1 g 06/13/2022 2 documented in this encounter Discharge Disposition Disposition Code Departure Means Destination Discharge to home or self care documented in this encounter ED Notes * Maureen Mukul Lynn, ROHAN - 06/13/2022 8:58 PM CDT HPI Chief Complaint Patient presents with ??? Eye Pain [age] year, female patient presents the ED complaining of right eye pain, upon awakening on Tuesday morning. Patient has a history of, chronic pain, gallstones, hypertension. Patient states she thought she had ???a hair?? in her right eye and began rubbing it Th night, and woke up Tuesday morning feeling like the right eye was irritated. Patient states it has become more more painful, and now having blurred vision. Denies additional complaints. Patient denies wearing contact lenses or glasses. States she does not have an eye doctor. Denies additional complaints. States she attempted to use an eye cream that she purchased at [email or web address] with no relief. Patient states she feels like her eye is red, states she is having clear tearing from it and it is painful. Also reports it is painful to look into the light Patient History: Patient Active Problem List Diagnosis Date Noted ??? Epigastric pain 05/26/2021 ??? S/P ERCP 05/26/2021 ??? Colon cancer screening 05/26/2021 ??? Diarrhea 05/26/2021 ??? Nausea 05/26/2021 ??? Uterine leiomyoma ??? Abnormality of rectum 05/12/2021 ??? Cholecystitis 05/10/2021 ??? Anxiety 05/10/2021 ??? Elevated liver enzymes 05/10/2021 ??? Choledocholithiasis with acute cholecystitis 05/10/2021 ??? Referred otalgia of left ear 09/30/2020 [...] Never Used ??? Tobacco comment: quit 2019 Substance and Sexual Activity ??? Drug use: Not on file ??? Sexual activity: Not on file Alcohol Use: Not on file Alcohol Use: Not on file Social History Social History Narrative Single : (Added by TW Conv) No alcohol use : (Added by TW Conv) Review of Systems Review of Systems Constitutional: Negative for chills and fever. HENT: Negative for ear pain and sore throat. Eyes: Positive for pain, discharge, redness and itching. Negative for visual disturbance. Respiratory: Negative for cough and shortness of breath. Cardiovascular: Negative for chest pain and palpitations. Gastrointestinal: Negative for abdominal pain and vomiting. Genitourinary: Negative for dysuria and hematuria. Musculoskeletal: Negative for arthralgias and back pain. Skin: Negative for color change and rash. Neurological: Negative for seizures and syncope. All other systems reviewed and are negative. Physical Exam ED Triage Vitals Temp Pulse Resp BP SpO2 06/13/22 1730 06/13/22 1730 06/13/22 1730 06/13/22 1732 06/13/22 1730 36.4 ??C (97.6 ??F) 77 18 108/77 98 % Temp src Heart Rate Source Patient Position BP Location FiO2 (%) -- -- -- -- -- Height Height Method Weight Weight Method 06/13/22 1730 06/13/22 1730 06/13/22 173 -- 1.651 m (5' 5 ) Stated 58.1 kg (128 lb) Physical Exam Vitals and nursing note reviewed. Constitutional: General: She is not in acute distress. Appearance: Normal appearance. She is well-developed. She is not ill-appearing, toxic-appearing or diaphoretic. HENT: Head: Normocephalic and atraumatic. Right Ear: Tympanic membrane, ear canal and external ear normal. Left Ear: Tympanic membrane, ear canal and external ear normal. Eyes: General: Lids are normal. Lids are everted, no foreign bodies appreciated. Extraocular Movements: Extraocular movements intact. Conjunctiva/sclera: Right eye: Right conjunctiva is injected. Left eye: Left conjunctiva is not injected. No chemosis, exudate or hemorrhage. Pupils: Pupils are equal, round, and reactive to light. Right eye: Pupil is round, reactive and not sluggish. Corneal abrasion and fluorescein uptake present. Mary exam negative. Left eye: Pupil is round, reactive and not sluggish. No corneal abrasion or fluorescein uptake. Mary exam negative. Comments: There is a triangular shaped corneal abrasion directly located over the pupil of the right eye, right eyelid inverted, no retained foreign body. Fluorescein uptake present. Cardiovascular: Rate and Rhythm: Normal rate and regular rhythm. Heart sounds: Normal heart sounds. No murmur heard. Pulmonary: Effort: Pulmonary effort is normal. No respiratory distress. Breath sounds: Normal breath sounds. Abdominal: General: Bowel sounds are normal. There is no distension. Palpations: Abdomen is soft. Tenderness: There is no abdominal tenderness. There is no guarding. Musculoskeletal: Cervical back: Neck supple. Skin: General: Skin is warm and dry. Neurological: Mental Status: She is alert and oriented to person, place, and time. Psychiatric: Behavior: Behavior is cooperative. MDM Medical Decision Making Differential Diagnosis or Management Options: In my medical decision making the following differential diagnoses were considered before arriving at final diagnosis and many were either ruled out or appeared unlikely Differential diagnosis includes corneal abrasion, corneal laceration, retained foreign body. There is a corneal abrasion to the right eye, erythromycin eye ointment prescribed, and patient given referral to Ophthalmology. Visual acuity in the right eye is 20/200, 2020 to left eye, and together theyare 20/20. ED Course as of 06/13/222109 Time: 06/13 2030 Comment: Voice recognition software [email or web address] Direct was used to dictate and transcribe this document. Card Lacer Jacquard variances may occur. Despite proofreading, typographical errors may occur. By: Mukul Reddy NP Time: 06/13 2030 Comment: Discussed ED findings and plans for discharge with pt who understands and agrees with plan. Pt has been advised to return to the ED with any new or worsening symptoms. Pt has no further complaints. All questions addressed at this time. By: Mukul Reddy NP Final diagnoses: Abrasion of right cornea, initial encounter Mukul Reddy NP 06/13/222109 Cosigned by Ash Cosme MD at 06/13/2022 9:52 PM CDT Associated attestation - Ash Cosme MD - 06/13/2022 9:52 PM CDT Based on the medical record, the care seems appropriate. * Cheryle Martinez RN - 06/13/2022 5:29 PM CDT Patient arrives to the ED with right eye pain and redness and irritation. Patient states she feels like she has something in it. Patient denies any trauma to her eye. Patient states this started lastnight. Redness noted to right eye and patient states she went to [facility] this morning and out some eye cream in it documented in this encounter Plan of Treatment Not on file documented as of this encounter Visit Diagnoses Diagnosis Abrasion of right cornea, initial encounter- Primary documented in this encounter Administered Medications Inactive Administered Medications - up to 3 most recent administrations Medication Order MAR Action Action Date Dose Rate Site fluorescein 1 mg ophthalmic strip 1 strip 1 strip, right eye, Once, On 06/13/22 at 2006, For 1 dose Given 06/13/2022 8:15 PM CDT 1 strip tetracaine (PF) (ALTACAINE) 0.5 % ophthalmic solution 1 drop 1 drop, left eye, Once, On 06/13/22 at 2006, For 1 dose, Indications: Administration of Corneal AnesthesiaIndications:Administrat ion of Corneal Anesthesia Given 06/13/2022 8:16 PM CDT 1 drop documented in this encounter Active and Recently Administered Medications Times are shown in CDT. Scheduled Medication Order 06/11/2022 06/12/2022 06/13/2022 fluorescein 1 mg ophthalmic strip 1 strip (COMPLETED) 1 strip, right eye, Once, On 06/13/22 at 2006, For 1 dose 2014 (Given - Provid er: Paulette Bates, DEANN) tetracaine (PF) (ALTACAINE) 0.5 % ophthalmic solution 1 drop (COMPLETED) 1 drop, left eye, Once, On 06/13/22 at 2006, For 1 dose, Indications: Administration of Corneal Anesthesia 2016 (Given - Provid er: Paulette Bates, DEANN) documented in this encounter Orders Nursing Count Last Ordered Date First Orde red Date VISUAL ACUITY SCREENING 1 06/13/2022 documented in this encounter Additional Health Concerns Infection Onset Date Last Indicated Resolved Time COVID: Recovered Comment:Added based on recent COVID infection. 05/29/2022 06/07/2022 09/26/2022 3:[address] documented as of this encounter Care Teams Electrical Control Assembler Relationship Specialty Start Date End Date Brandon Dumont MD PCP - General 03/26/21 Abisai Moss MD Consulting Physician General Surgery 05/14/21 Nunu Steen MD Consulting Physician Gastroenterology 05/14/21 documented as of this encounter
--- OUTSIDE RECORDS SUMMARY | 2024-10-27 10:55 | XMS_ITS | Encounter Summary ---
Author Organization [facility] Address [address] [place] [address] Care Team Providers Care Canvassing Manager Name Role Phone Brandon Dumont MD Primary Care Provider [phone] Abisai Moss MD Unavailable Nunu Steen MD Unavailable [phone] Reason for Visit * Reason Onset Date Comments Lab Results 01/14/2022 Encounter Details Date Type Department Care Team (Late st Contact Info) Description 01/14/2022 Telephone [facility] Gastroenterology at [address] [place] [address] Ernie Walter NP [address] [place] [address] Lab Results Social History Tobacco Use Types Packs/Day Years Used Date Smoking Tobacco: Former Cigarettes Smokeless Tobacco: Never Comments:quit 2019 Alcohol Use Standard Drinks/Week Comments Not Currently 0 (1 standard drink = 0.6 oz pur e alcohol) Comments No Sex and Gender Information Value Date Recorded Sex Assigned at Not on file 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 MAKING MACHINE OPERATOR documented in this encounter Plan of Treatment Not on file documented as of this encounter Visit Diagnoses Not on filedocumented in this encounter Additional Health Concerns Infection Onset Date Last Indicated Resolved Time COVID: Recovered Comment:Added based on recent COVID infection. 11/24/2021 12/14/2021 03/24/2022 3:05 AM C DT documented as of this encounter Care Teams Canvassing Manager Relationship Specialty Start Date End Date Brandon Dumont MD PCP - General 03/26/21 Abisai Moss MD Consulting Physician General Surgery 05/14/21 Nunu Steen MD Consulting Physician Gastroenterology 05/14/21 documented as of this encounter
--- OUTSIDE RECORDS SUMMARY | 2024-10-27 10:55 | XMS_ITS | Encounter Summary ---
Author Organization [facility] Address [address] [place] [address] Care Team Providers Care Warper Tender Name Role Phone Brandon Dumont MD Primary Care Provider [phone] Abisai Moss MD Unavailable Nunu Steen MD Unavailable [phone] Reason for Visit * Reason Onset Date Comments Schedule EGD 11/19/2022 Encounter Details Date Type Department Care Team (Late st Contact Info) Description 11/19/2022 Telephone [facility] Gastroenterology at [address], [place] [address] Jenae Sharma Schedule EGD Social History Tobacco Use Types Packs/Day Years Used Date Smoking Tobacco: Former Cigarettes 0.8 40 Smokeless Tobacco: Never Comments:quit [...] on file 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 Steen on 11/24/22. Instructions given in office and sent via [email or web address]. Pt on blood thinner (if yes, list medication and reason for taking): No Has pt had recent stent placement within the last year: No Pt have pacemaker/defibrillator: No Pt diabetic (if yes, insulin or oral meds): No Pt have kidney disease or on dialysis: No Pt on iron: No Mechanical Heart valve: No COVID-19 test verbally given to pt: Not Needed Instructed pt to call with any medical changes and/or medications/insurance. H HAULER documented in this encounter Plan of Treatment Not on file documented as of this encounter Visit Diagnoses Not on filedocumented in this encounter Care Teams Warper Tender Relationship Specialty Start Date End Date Brandon Dumont MD PCP - General 03/26/21 Abisai Moss MD Consulting Physician General Surgery 05/14/21 Nunu Steen MD Consulting Physician Gastroenterology 05/14/21 documented as of this encounter
--- OUTSIDE RECORDS SUMMARY | 2024-10-27 10:55 | XMS_ITS | Encounter Summary ---
Author Organization [facility] Healthcare Address [address] [place] [address] Care Team Providers Care Sales Representative Jewelry Name Role Phone Brandon Dumont MD Primary Care Provider [phone] Abisai Moss MD Unavailable Nunu Steen MD Unavailable [phone] Encounter Details Date Type Department Care Team (Late st Contact Info) Description 07/08/2022 3:15 PM CDT [address] [address] Social History Tobacco Use Types Packs/Day Years Used Date Smoking Tobacco: Former Cigarettes Smokeless Tobacco: Never Comments:quit 2019 Alcohol Use Standard Drinks/Week Comments Not Currently 0 (1 standard drink = 0.6 oz pur e alcohol) Comments No Sex and Gender Information Value Date Recorded Sex Assigned at Not on file 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 05/29/2022 06/07/2022 09/26/2022 3:[address] documented as of this encounter Care Teams Sales Representative Jewelry Relationship Specialty Start Date End Date Brandon Dumont MD PCP - General 03/26/21 Abisai Moss MD Consulting Physician General Surgery 05/14/21 Nunu Steen MD Consulting Physician Gastroenterology 05/14/21 documented as of this encounter
--- OUTSIDE RECORDS SUMMARY | 2024-10-27 10:55 | XMS_ITS | Encounter Summary ---
Author Organization [facility] Healthcare Address [address] [place] [address] Care Team Providers Care Etl Analyst Name Role Phone Brandon Dumont MD Primary Care Provider [phone] Abisai Moss MD Unavailable Nunu Steen MD Unavailable [phone] Reason for Visit * Auth/Cert Specialty Diagnoses / Procedures Referred By Naye t Referred To Contact Diagnoses RUQ abdominal pain Epigastric pain Postprandial nausea RUQ abdominal pain [R10.11] Epigastric pain [R10.13] Postprandial nausea [R11.0] Procedures WI ESOPHAGOGASTRODUODENOSCOPY TRANSORAL DIAGNOSTIC ESOPHAGOGASTRODUODENOSCOPY Referral ID Status Reason Start Date Expiration Date Visits Re quested Visits Authorized [id number] 1 1 Encounter Details Date Type Department Care Team (Latest Contact Info) Description 11/24/2022 2:30 PM GARBAGE DEPOT WORKER - 11/24/2022 3:00 PM GARBAGE DEPOT WORKER Surgery [facility] [address] [place] [address] Nunu Steen MD [address] [place] [address] ESOPHAGOGASTRODUODENOSCOPY BIOPSY Surgery Details Date/Time Status Location OR Service Patient Class Case Class Case Type Trauma Case? 11/24/2022 2:30 PM Posted [facility] END[facility]COPY GI 01 Gastroenterology Outpatient Elective Panel 1 Procedure LRB Anes Op Region Wound Class Comments ESOPHAGOGASTRODUODENOSCOPY BIOPSY N/A Monitor Anesthesia Care Surgeon Surgeon Role Service Panel Nunu Steen [...] on file Legal Sex Female 12:50 AM GARBAGE DEPOT WORKER Gender Identity Not on file Sexual Orientation Not on file documented as of this encounter Last Filed Vital Signs Vital Sign Reading Time Taken Comments Blood Pressure 158/78 11/24/2022 2:50 PM GARBAGE DEPOT WORKER Pulse 69 11/24/2022 2:50 PM GARBAGE DEPOT WORKER Temperature 36.2 ??C (97.1 ??F) 11/24/2022 2:50 PM CS T Respiratory Rate 16 11/24/2022 2:50 PM GARBAGE DEPOT WORKER Oxygen Saturation 100% 11/24/2022 2:50 PM GARBAGE DEPOT WORKER Inhaled Oxygen Concentration - - Weight 59 kg (130 lb) 11/24/2022 12:39 PM GARBAGE DEPOT WORKER Height 165.1 cm (5' 5 ) 11/24/2022 12:39 PM GARBAGE DEPOT WORKER Body Mass Index 21.63 11/24/2022 12:39 PM GARBAGE DEPOT WORKER documented in this encounter Medications at Time [...] meals GI PLAN/RECOMMENDATIONS: EGD Nunu Steen MD AGE DEPOT WORKER documented in this encounter Procedure Notes * Nunu Steen MD - 11/24/2022 12:52 PM CSTAssociated Order(s): EGD [facility] Patient Name: Kashmir Arguello Procedure Date: 11/24/2022 12:52 PM Date of : 1960 Admit Type: Outpatient Age: 62 Gender: Female Attending MD: Nunu Steen M.D. Room: REPLACED BY [facility] ENDOSCOPY ROOM 1 Note Status: Finalized Patient [...] passed under direct vision. The Endoscope GIF-H190 [id number] was introduced through the mouth, and advanced [...] cartilages and perform sinuses. Electronically signed by uNnu Steen M.D. Nunu Steen M.D. 11/24/2022 2:32:53 PM Number of Addenda: 0 Note Initiated On: 11/24/2022 12:52 PM Procedure Code(s): --- Professional --- 24486, Esophagogastroduodenoscopy, flexible, transoral; with biopsy, single or multiple Diagnosis Code(s): --- Professional --- K31.89, Other diseases of stomach and duodenum K30, Functional dyspepsia CPT copyright 2020 [employer]. All rights reserved. The codes documented in this report are preliminary and upon circulation assistant review may be revised to meet current compliance requirements. Recognized by the [employer] for promoting quality in endoscopy AGE DEPOT WORKER documented in this encounter Miscellaneous Notes * Perioperative Nursing Note - Sarai Belcher, DEANN - 11/24/2022 2:59 PM GARBAGE DEPOT WORKER 1450-Dr Steen at bedside. Pt to follow up with ENT doctor. Continue home medication. AGE DEPOT WORKER documented in this encounter Plan of Treatment Not on file documented as of this encounter Procedures Procedure Name Priority Date/Time Associated Diagnosis Comments ESOPHAGOGASTRODUODENOSCOPY BIOPSY 11/24/2022 1:56 PM GARBAGE DEPOT WORKER RUQ abdominal pain Epigastric pain Postprandial nausea EGD 11/24/2022 12:52 PM GARBAGE DEPOT WORKER SURGICAL PATHOLOGY STAT 11/24/2022 9:56 AM GARBAGE DEPOT WORKER RUQ abdominal pain Epigastric pain Postprandial nausea documented in this encounter Results * EGD (11/24/2022 12:52 PM GARBAGE DEPOT WORKER) Anatomical Region Laterality Modality Other Narrative Procedure Note Nunu Steen MD - 11/24/2022 12:52 PM [facility] Patient Name: Kashmir Arguello Procedure Date: 11/24/2022 12:52 PM Date of : 1960 Admit Type: Outpatient Age: 62 Gender: Female Attending MD: Nunu Steen M.D. Room: REPLACED BY [facility] ENDOSCOPY ROOM 1 Note Status: Finalized Patient [...] passed under direct vision. The Endoscope GIF-[id number] was introduced through the mouth, and advanced [...] 12:52 PM Procedure Code(s): --- Professional --- 24596, Esophagogastroduodenoscopy, flexible, transoral; with biopsy, single or multiple Diagnosis Code(s): --- Professional --- K31.89, Other diseases of stomach and duodenum K30, Functional dyspepsia CPT copyright 2020 [employer]. All rights reserved. The codes documented in this report are preliminary and upon circulation assistant reviewmay be revised to meet current compliance requirements. Recognized by the [employer] for promoting quality in endoscopy Nunu Steen MD ENDOSCOPY PROCEDURES Final Result * Surgical pathology (11/24/2022 9:56 AM GARBAGE DEPOT WORKER) Tissue (Gastric/Stomach biopsy) 11/24/2022 2:16 PM GARBAGE DEPOT WORKER Narrative PATHOLOGY [facility] ([place]) - 11/26/2022 3:14 PM GARBAGE DEPOT WORKER EPIC results best viewed via link to PDF [facility] Department of Pathology [address] [place] [address] [id number] Note to Patients: This report may contain [...] Report Patient Name: ??KASHMIR ARGUELLO Address: ??[address] [facility], ??[place], [place] ??[address] Gender: ??F : ??1960 (Age: 62) Service: ??Gastro Location: ??[facility] Hospital #: ??[id number] Patient Type: ??[facility] SDS Accession # ?[id number] Taken: ??11/24/2022 Received: ??11/25/2022 Accessioned: ??11/25/2022 Reported: [...] in a single formalin filled container labeled KASHMIR ARGUELLO and gastric biopsy . ??It is 3 [...] determined by the Surgical Pathology Department at [facility] as part of an ongoing senior quality control inspector program and in compliance with federally mandated [...] characteristics determined by the Surgical Pathology Department [facility]. ??It has not been cleared or approved by the U. S. Food and Drug Administration. Note for decalcified specimens: This assay has not been validated on decalcified tissues. Results should be interpreted with caution given the possibility of false negativity on decalcified specimens us Nunu Steen MD LAB PATHOLOGY ORDERABLES F inal Result PATHOLOGY REPLACED BY [facility] ([place]) [address] [place] [address] documented in this encounter Visit Diagnoses Diagnosis RUQ abdominal pain Abdominal pain, right upper quadrant Epigastric pain Abdominal pain, epigastric Postprandial nausea Nausea Nausea alone RUQ abdominal pain Abdominal pain, right upper quadrant Epigastric pain Abdominal pain, epigastric Postprandial nausea documented in this encounter Admitting Diagnoses Diagnosis [...] Pre-Procedure (GI) Rate/Dose Verify 11/24/2022 2:03 PM GARBAGE DEPOT WORKER 30 mL/hr New Bag 11/24/2022 1:07 PM GARBAGE DEPOT WORKER 30 mL/hr 30 mL/hr sodium chloride 0.9% infusion 125 mL/hr, intravenous, Continuous, Starting on Tue11/24/22 at 1300, Recovery (GI) documented in this encounter Discontinued Medications Medication Sig Discontinue Reason Start Date End Da te methylPREDNISolone (Medrol, Talon,) 4 mg Dosepack follow package directions Therapy completed 10/14/2022 11/24/2022 documented as of this encounter Active and Recently Administered Medications Times are shown in GARBAGE DEPOT WORKER. Continuous Medication Order 11/22/2022 11/23/2022 11/24/2022 sodium [...] 11/24/2022 documented in this encounter Care Teams Etl Analyst Relationship Specialty Start Date End Date Brandon Dumont MD PCP - General 03/26/21 Abisai Moss MD Consulting Physician General Surgery 05/14/21 Nunu Steen MD Consulting Physician Gastroenterology 05/14/21 documented as of this encounter
--- OUTSIDE RECORDS SUMMARY | 2024-10-27 10:55 | XMS_ITS | Encounter Summary ---
Author Organization [facility] Healthcare Address [address] [place] [address] Care Team Providers Care Drafting Supervisor Name Role Phone Brandon Dumont MD Primary Care Provider [phone] Abisai Moss MD Unavailable Nunu Steen MD Unavailable [phone] Encounter Details Date Type Department Care Team (Late st Contact Info) Description 01/08/2022 4:05 PM REGISTRY NURSE Lab [facility] [address] [place] [address] Nunu Steen MD [address] [place] [address] [address] Ernie Walter NP [address] [place] [address] [address] S/P ERCP Discharge Disposition: Discharge to home or self care Social History Tobacco Use Types Packs/Day Years Used Date Smoking Tobacco: Former Cigarettes Smokeless Tobacco: Never Comments:quit 2020 Alcohol Use Standard Drinks/Week Comments Not Currently 0 (1 standard drink = 0.6 oz pur e alcohol) Comments No Sex and Gender Information Value Date Recorded Sex Assigned at Not on file Legal Sex Female 12:50 AM REGISTRY NURSE Gender Identity Not on file Sexual Orientation Not on file documented as of this encounter Discharge Disposition Disposition Code Departure Means Destination Discharge to home or self care documented in this encounter Miscellaneous Notes * Result Encounter Note - Ernie Barrett NP - 01/14/2022 10:19 AM REGISTRY NURSE See telephone encounter. Please let patient know that blood work was essentially normal- including liver enzymes. STRY NURSE documented in this encounter Plan of Treatment Not on file documented as of this encounter Procedures Procedure Name Priority Date/Time Associated Diagnosis Comments EGFR Routine 01/08/2022 4:10 PM REGISTRY NURSE S/P ERCP DIFFERENTIAL AUTO Routine 01/08/2022 4:1 0 PM REGISTRY NURSE S/P ERCP CBC WITH AUTO DIFFERENTIAL Routine 01/08/2022 4:10 PM REGISTRY NURSE S/P ERCP COMPREHENSIVE METABOLIC PANEL Routine 01/08/2022 4:10 PM REGISTRY NURSE S/P ERCP documented in this encounter Results * eGFR (01/08/2022 4:10 PM REGISTRY NURSE) eGFR 72 mL/min/1. 73 m2 [facility] [...] interpretive data was last reviewed 2021. Blood 01/08/2022 4:10 PM REGISTRY NURSE 01/08/2022 4:23 PM REGISTRY NURSE Ernie Walter MINE SUPERINTENDENT LAB BLOOD ORDERABLE S Final Result [facility] 1 [facility] [place] [address] * Differential, auto (01/08/2022 4:10 PM REGISTRY NURSE) Neutrophil abs 6.0 1.7 - 6.5 K/cumm [facility] Imm gran abs 0.0 0.0 - 0.1 K/cumm [facility] Lymphocyte abs 3.3 0.8 - 3.3 K/cumm [facility] Monocyte abs 0.6 0.2 - 0.8 K/cumm [facility] Eosinophil abs 0.4 0.0 - 0.5 K/cumm [facility] Basophil abs 0.1 0.0 - 0.1 K/cumm [facility] Neutrophil pct 58.0 % [facility] Comment: Interpretive [...] was last revised on 2018. Lymphocyte pct 31.6 % [facility] Comment: Interpretive Data Percent cell count reference ranges are not reported, since discordance with absolute values may lead to misinterpretation of CBC data. Current Interpretive Data was last revised on 2018. Monocyte pct 5.7 % [facility] Comment: Interpretive Data Percent cell count reference ranges are not reported, since discordance with absolute values may lead to misinterpretation of CBC data. Current Interpretive Data was last revised on 2018. Eosinophil pct 4.0 % [facility] Comment: Interpretive Data Percent cell count reference ranges are not reported, since discordance with absolute values may lead to misinterpretation of CBC data. Current Interpretive Data was last revised on 2018. Basophil pct 0.5 % [facility] Comment: Interpretive Data Percent cell count reference ranges are not reported, since discordance with absolute values may lead to misinterpretation of CBC data. Current Interpretive Data was last revised on 2018. Blood 01/08/2022 4:10 PM REGISTRY NURSE 01/08/2022 4:23 PM REGISTRY NURSE Ernie Walter MINE SUPERINTENDENT LAB BLOOD ORDERABLE S Final Result [facility] 1 [facility] Department [place] [address] * Comprehensive metabolic panel (01/08/2022 4:10 PM REGISTRY NURSE) Sodium 141 135 - 145 mmol/L [facility] Potassium, pl 3.6 3.3 - 4.9 mmol/L [facility] Chloride 106 97 - 110 mmol/L [facility] CO2 26 22 - 32 mmol/L [facility] Anion gap 9 2 - 15 mmol/L [facility] BUN 15 8 - 25 mg/dL [facility] Creatinine 0.92 0.60 - 1.10 mg/dL [facility] Glucose 82 70 - 199 mg/dL [facility] [...] 2017. Calcium 9.2 8.5 - 10.3 mg/dL [facility] [...] [facility] Blood 01/08/2022 4:10 PM REGISTRY NURSE 01/08/2022 4:23 PM REGISTRY NURSE us Ernie Walter MINE SUPERINTENDENT LAB BLOOD ORDERABLE S Final Result [facility] 1 [facility] Department [place] [address] * (ABNORMAL) CBC with auto differential (01/08/2022 4:10 PM REGISTRY NURSE) WBC 10.4(H) 3.8 - 9.9 K/cumm [facility] [...] ([place]) MCHC 35.0 32.3 - 35.7 g/dL [facility] RDW CV 13.3 11.1 - 14.9 % [facility] RDW SD 38.0 35.7 - 48.1 fL [facility] NRBC abs 0.00 0.00 - 0.01 K/cumm [facility] Blood 01/08/2022 4:10 PM REGISTRY NURSE 01/08/2022 4:23 PM REGISTRY NURSE us Ernie Walter MINE SUPERINTENDENT LAB BLOOD ORDERABLE S Final Result [facility] 1 [facility] Department [place] [address] documented in this encounter Visit Diagnoses Diagnosis S/P ERCP documented in this encounter Additional Health Concerns Infection Onset Date Last Indicated Resolved Time COVID: Recovered Comment:Added based on recent COVID infection. 11/24/2021 12/14/2021 03/24/2022 3:05 AM C DT documented as of this encounter Care Teams Drafting Supervisor Relationship Specialty Start Date End Date Brandon Dumont MD PCP - General 03/26/21 Abisai Moss MD Consulting Physician General Surgery 05/14/21 Nunu Steen MD Consulting Physician Gastroenterology 05/14/21 documented as of this encounter
--- OUTSIDE RECORDS SUMMARY | 2024-10-27 10:55 | XMS_ITS | Encounter Summary ---
Author Organization [facility] Address [address] [place] [address] Care Team Providers Care Uptwister Tender Name Role Phone Brandon Dumont MD Primary Care Provider [phone] Abisai Moss MD Unavailable Nunu Steen MD Unavailable [phone] Encounter Details Date Type Department Care Team (Late st Contact Info) Description 11/25/2022 11:22 AM SED SPECIAL EDUCATION TEACHER Anesthesia Event [facility] Gastroenterology at [address] [place] [address] Samson Barnhart MD [address] [facility] [address] [facility] [address] [place] [address] Anesthesia Record Procedure Summary Procedure Name Responsible Anesthesiologist Anesthesia Start Time Anesthesia Stop Time ESTABLISHED PATIENT Events No events on file. Meds * Agents No agents on file. * Blood No blood administrations on file. Lines, Drains, and Airways No LDAs on file. documented in this encounter Social History Tobacco [...] Average Number of Drinks Not on file 12/08/2 023 Frequency of Binge Drinking Not on file 06/2023 Personal Safety Answer Date Recorded Getting School Help Needed Denies 10/17 Comments No Sex and Gender Information Value Date Recorded Sex Assigned at Not on file Legal Sex Female 12:50 AM SED SPECIAL EDUCATION TEACHER Gender Identity Not on file Sexual Orientation Not on file documented as of this encounter OR Notes * Anesthesia Postprocedure Evaluation - Samson Barnhart MD - 11/25/2022 11:22 AM CST Patient: Joselyn Amado Procedure Summary Date: 11/19/22 Room / Location: [facility] Gastroenterology at [place] Anesthesia Start: Anesthesia Stop: Procedure: ESTABLISHED PATIENT Diagnosis: Scheduled Providers: Jania See PA Responsible Provider: Anesthesia Type: Not recorded ASA Status: Not recorded Anesthesia Type: No value filed. Last vitals BP 158/78 Pulse 69 Temp 36.2 ??C (97.1 ??F) Resp 16 SpO2 100% Anesthesia Post Evaluation Patient location during evaluation: PACU Patient participation: complete - patient participated Level of consciousness: fully awake Pain management: adequate Airway patency: adequate Cardiovascular status: acceptable Respiratory status: acceptable Hydration status: acceptable Pt is: normothermic Nausea/Vomiting status: none No notable events documented. SPECIAL EDUCATION TEACHER documented in this encounter Plan of Treatment Not on file documented as of this encounter Visit Diagnoses Not on filedocumented in this encounter Care Teams Uptwister Tender Relationship Specialty Start Date End Date Brandon Dumont MD PCP - General 03/26/21 Abisai Moss MD Consulting Physician General Surgery 05/14/21 Nunu Steen MD Consulting Physician Gastroenterology 05/14/21 documented as of this encounter
--- OUTSIDE RECORDS SUMMARY | 2024-10-27 10:55 | XMS_ITS | Encounter Summary ---
Author Organization [facility] Address [address] [place] [address] Care Team Providers Care Administration Vice President Name Role Phone Brandon Dumont MD Primary Care Provider [phone] Abisai Moss MD Unavailable Nunu Steen MD Unavailable [phone] Reason for Visit * Reason Onset Date Comments Covid-19 Home Monitoring 05/25/2022 Daily c alls Encounter Details Date Type Department Care Team (Late st Contact Info) Description 05/25/2022 Telephone [facility] Accountable Care Organization [address] [place] [address] Bozena Oates MA [address] [place] [address] [address] Covid-19 Home Monitoring (Daily calls) Social History Tobacco Use Types Packs/Day Years Used Date Smoking Tobacco: Former Cigarettes Smokeless Tobacco: Never Comments:quit 2019 Alcohol Use Standard Drinks/Week Comments Not Currently 0 (1 standard drink = 0.6 oz pur e alcohol) Comments No Sex and Gender Information Value Date Recorded Sex Assigned at Not on file Legal Sex Female 12:50 AM ELECTION JUDGE Gender Identity Not on file Sexual Orientation Not on file documented as of this encounter Miscellaneous Notes * Telephone Encounter - Bozena Oates MA - 05/25/2022 1:59 PM CDT This patient is being disenrolled from the [...] home monitoring program to re-enroll at . [facility] pt x 3 documented in this encounter Plan of Treatment Not on file documented as of this encounter Visit Diagnoses Not on filedocumented in this encounter Additional Health Concerns Infection Onset Date Last Indicated Resolved Time COVID19 05/19/2022 05/19/2022 05/29/2022 3:05 AM CDT documented as of this encounter Care Teams Administration Vice President Relationship Specialty Start Date End Date Brandon Dumont MD PCP - General 03/26/21 Abisai Moss MD Consulting Physician General Surgery 05/14/21 Nunu Steen MD Consulting Physician Gastroenterology 05/14/21 documented as of this encounter
--- OUTSIDE RECORDS SUMMARY | 2024-10-27 10:56 | XMS_ITS | Encounter Summary ---
Author Organization [facility] Address [address] [place] [address] Care Team Providers Care Beading Machine Operator Name Role Phone Brandon Dumont MD Primary Care Provider [phone] Abisai Moss MD Unavailable Nunu Steen MD Unavailable [phone] Encounter Details Date Type Department Care Team (Late st Contact Info) Description 08/24/2021 Telephone [facility] Gastroenterology at [address] [place] [address] Belle Meneses MA Social History Tobacco Use Types Packs/Day Years Used Date Smoking Tobacco: Former Cigarettes Smokeless Tobacco: Never Comments:quit 2019 Alcohol Use Standard Drinks/Week Comments Not Currently 0 (1 standard drink = 0.6 oz pur e alcohol) Comments No Sex and Gender Information Value Date Recorded Sex Assigned at Not on file Legal Sex Female 12:50 AM MERCHANDISING EXECUTION ASSOCIATE Gender Identity Not on file Sexual Orientation Not on file documented as of this encounter Miscellaneous Notes * Telephone Encounter - Belle Meneses MA - 08/24/2021 8:46 AM CDT Pt was scheduled for a follow up in the office with ROHAN Klein on Tuesday08/25/2021. Pt was scheduled for a colonoscopy with Dr. Steen on 08/17/2021 but did not have the procedure done. Called pt and she states that she would like to reschedule both the office visit and the colonoscopy. She addsthat she is not having any issues but will call to schedule an office visit sooner if anything changes. Pt has been scheduled for a colonoscopy with Dr. Steen on Tuesday11/09/2021 at 12:00 pm with an arrival at 11:00 am. Pt address has been verified. Prep instructions have been mailed out to pt and she was instructed to call us if she does not receive them in 1-2 weeks or if she has any questions. Pt has been rescheduled for an office visit with Ernie on Tuesday11/23/2021 at 9:00 am. Last colonoscopy: First one Family history colon cancer (if yes, relationship to pt): no Personal history colon polyps or colon cancer: n/a Pt on blood thinner (if yes, list medication and reason for taking): no Has pt had recent stent placement within the last year: no Pt have pacemaker/defibrillator: no Pt diabetic (if yes, insulin or oral meds): no Pt have kidney disease or on dialysis: no Pt on iron: no Hx of Constipation: no Mechanical Heart valve: no Instructed pt to call with any medical changes and/or medications/insurance. documented in this encounter Plan of Treatment Not on file documented as of this encounter Visit Diagnoses Diagnosis Screen for colon cancer- Primary Special screening for malignant neoplasms, colon documented in this encounter Orders Case Request Count Last Ordered Date First Orde red Date CASE REQUEST GI 1 08/24/2021 documented in this encounter Care Teams Beading Machine Operator Relationship Specialty Start Date End Date Brandon Dumont MD PCP - General 03/26/21 Abisai Moss MD Consulting Physician General Surgery 05/14/21 Nunu Steen MD Consulting Physician Gastroenterology 05/14/21 documented as of this encounter
--- OUTSIDE RECORDS SUMMARY | 2024-10-27 10:56 | XMS_ITS | Encounter Summary ---
Author Organization [facility] Address [address] [place] [address] Care Team Providers Care [place]en [place] Utility Worker Name Role Phone Brandon Dumont MD Primary Care Provider [phone] Abisai Moss MD Unavailable Nunu Steen MD Unavailable [phone] Reason for Visit * Reason Onset Date Comments Test Results 05/26/2021 Encounter Details Date Type Department Care Team (Late st Contact Info) Description 05/26/2021 Telephone [facility] Gastroenterology at [place] [address] [facility] [address] [place] [address] Ernie Walter NP [address] [place] [address] Test Results Social History Tobacco Use Types Packs/Day Years Used Date Smoking Tobacco: Former Cigarettes Smokeless Tobacco: Never Comments:quit 2019 Alcohol Use Standard Drinks/Week Comments Not Currently 0 (1 standard drink = 0.6 oz pur e alcohol) Comments No Sex and Gender Information Value Date Recorded Sex Assigned at Not on file Legal Sex Female 12:50 AM SUPERVISOR WALL MIRROR DEPARTMENT Gender Identity Not on file Sexual Orientation Not on file documented as of this encounter Miscellaneous Notes * Telephone Encounter - Belle Meneses MA - 05/27/2021 8:36 AM CDT Left message to call if she has any questions. * Telephone Encounter - Ernie Barrett NP - 05/26/2021 4:53 PM CDT Please let patient know that two of her liver enzymes have returned to normal and the 3rd one has almost returned to normal. All good news. Lipase is normal so this makes it less likely that she has pancreatitis. Blood counts and urine testing without concerns. I will recheck her liver enzymes one more time whenever I see her in August. documented in this encounter Plan of Treatment Not on file documented as of this encounter Visit Diagnoses Not on filedocumented in this encounter Care Teams [place] Utility Worker Relationship Specialty Start Date End Date Brandon Dumont MD PCP - General 03/26/21 Abisai Moss MD Consulting Physician General Surgery 05/14/21 Nunu Steen MD Consulting Physician Gastroenterology 05/14/21 documented as of this encounter
--- OUTSIDE RECORDS SUMMARY | 2024-10-27 10:56 | XMS_ITS | Encounter Summary ---
Author Organization [facility] Address [address] [place] [address] Care Team Providers Care Solar Photovoltaic Electrician Name Role Phone Brandon Dumont MD Primary Care Provider [phone] Abisai Moss MD Unavailable Nunu Steen MD Unavailable [phone] Encounter Details Date Type Department Care Team (Late st Contact Info) Description 08/12/2021 Telephone [facility] Gastroenterology at [address] [place] [address] Ginna Diaz MA Social History Tobacco Use Types Packs/Day Years Used Date Smoking Tobacco: Former Cigarettes Smokeless Tobacco: Never Comments:quit 2020 Alcohol Use Standard Drinks/Week Comments Not Currently 0 (1 standard drink = 0.6 oz pur e alcohol) Comments No Sex and Gender Information Value Date Recorded Sex Assigned at Not on file 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 Pt was asking what time herprocedure was, I asked patient if she had her prep instructions which aggravated her and she stated I just want the time I stated I was asking if she had them because she was going to need them to be able to be ready for the procedure. I asked if she still had them from where we gave them to her in the office. She stated we did not give them to her, that the only the the nurse practitioner didwas tell her what day to be there, no time or how to prep. When I tried to explain to the patient we would have given her the date, time and instructions she was more aggravated and stated all I did was call in for what time I needed to be there. I again explained why she needed the instructions and stated I did not want her to have to come into the office to pick them up and asked if there was an e-mail address, to which she expressed her unhappiness with my questioning. It was at that time that I told the patient I was not going to continue to listen to her have an attitude with me for doing the steps I needed to do for her to be prepared for the procedure and ended the Conversation. Prepinstructions have been emailed to the patient at the e-mail address we have on file for her. documented in this encounter Plan of Treatment Not on file documented as of this encounter Visit Diagnoses Not on filedocumented in this encounter Care Teams Solar Photovoltaic Electrician Relationship Specialty Start Date End Date Brandon Dumont MD PCP - General 03/26/21 Abisai Moss MD Consulting Physician General Surgery 05/14/21 Nunu Steen MD Consulting Physician Gastroenterology 05/14/21 documented as of this encounter
--- OUTSIDE RECORDS SUMMARY | 2024-10-27 10:56 | XMS_ITS | Encounter Summary ---
Author Organization [facility] Address [address] [place] [address] Care Team Providers Care Project/Production Manager Imaging Name Role Phone Brandon Dumont MD Primary Care Provider [phone] Abisai Moss MD Unavailable Nunu Steen MD Unavailable [phone] Encounter Details Date Type Department Care Team (Late st Contact Info) Description 11/05/2021 Telephone [place] Piano Mechanic [address] [facility] [address] [place] [address] Ethel Friedman MD [address] [facility] [address] [place] [address] Social History Tobacco Use Types Packs/Day Years Used Date Smoking Tobacco: Former Cigarettes Smokeless Tobacco: Never Comments:quit 2019 Alcohol Use Standard Drinks/Week Comments Not Currently 0 (1 standard drink = 0.6 oz pur e alcohol) Comments No Sex and Gender Information Value Date Recorded Sex Assigned at Not on file 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 Called the patient and left a message on voicemail to contact our office to schedule an appointment. TURNING MACHINE FEEDER documented in this encounter Plan of Treatment Not on file documented as of this encounter Visit Diagnoses Not on filedocumented in this encounter Care Teams Project/Production Manager Imaging Relationship Specialty Start Date End Date Brandon Dumont MD PCP - General 03/26/21 Abisai Moss MD Consulting Physician General Surgery 05/14/21 Nunu Steen MD Consulting Physician Gastroenterology 05/14/21 documented as of this encounter
--- OUTSIDE RECORDS SUMMARY | 2024-10-27 10:56 | XMS_ITS | Encounter Summary ---
Author Organization [facility] Address [address] [place] [address] Care Team Providers Care Director Of Leadership Development Name Role Phone Brandon Dumont MD Primary Care Provider [phone] Abisai Moss MD Unavailable Nunu Steen MD Unavailable [phone] Reason for Visit * Reason Comments Post-op Gallbladder Encounter Details Date Type Department Care Team (Latest Contact Info) Description 05/21/2021 9:50 AM CDT Office Visit [facility] [address] [facility] [address] [place] [address] Abisai Moss MD [address] [place] [address] [address] [place] [address] Choledocholithiasis with acute cholecystitis (Primary Dx) Social History Tobacco Use Types Packs/Day Years Used Date Smoking Tobacco: Former Cigarettes Smokeless Tobacco: Never Comments:quit 2019 Alcohol Use Standard Drinks/Week Comments Not Currently 0 (1 standard drink = 0.6 oz pur e alcohol) Comments No Sex and Gender Information Value Date Recorded Sex Assigned at Not on file 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 Sex 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 Gender Identity Not on file Sexual Orientation Not on file documented as of this encounter Last Filed Vital Signs Vital Sign Reading Time Taken Comments Blood Pressure 154/107 05/21/2021 10:03 AM CDT Pulse 60 05/21/2021 10:03 AM CDT Temperature 36.2 ??C (97.1 ??F) 05/21/2021 10:03 AM C DT Respiratory Rate - - Oxygen Saturation 98% 05/21/2021 10:03 AM CDT Inhaled Oxygen Concentration - - Weight 63.5 kg (140 lb) 05/21/2021 10:03 AM CDT Height 165.1 cm (5' 5 ) 05/21/2021 10:03 AM CDT Body Mass Index 23.3 05/21/2021 10:03 AM CDT documented in this encounter Progress Notes * Abisai Moss MD - 05/21/2021 9:50 AM CDT Images from the original note were not included. Post Op Note Subjective: Patient Name: Joselyn Amado Date of Visit: 05/21/21 HPI: Main complaint is abdominal pain. Appetite slowly improving. Having some diarrhea Chief Complaint: Post-op Gallbladder Objective: Vitals BP (!) 154/107 Pulse 60 Temp 36.2 ??C (97.1 ??F) Ht 165.1 cm (5' 5 ) Wt 63.5 kg (140 lb) SpO2 98% BMI 23.30 kg/m?? Physical Exam Incisions clean, dry and intact Assessment/Plan Diagnoses and all orders for this visit: Choledocholithiasis with acute cholecystitis (Primary) Assessment & Plan: Continue to advance diet as tolerates. No submerging incisions for 2 weeks. No heavy lifting for another 2 weeks. Take stool softener as needed to avoid straining. Patient will call back with any further questions or concerns. 10:16 AM 05/21/2021 documented in this encounter Miscellaneous Notes * Assessment & Plan Note - Abisai Moss MD - 05/21/2021 10:15 AM CDTAssociated Problem(s): Choledocholithiasis with acute cholecystitis Continue to advance diet as tolerates. No submerging incisions for 2 weeks. No heavy lifting for another 2 weeks. Take stool softener as needed to avoid straining. Patient will call back with any further questions or concerns. documented in this encounter Plan of Treatment Not on file documented as of this encounter Visit Diagnoses Diagnosis Choledocholithiasis with acute cholecystitis- Primary Calculus of bile duct with acute cholecystitis without mention of obstruction documented in this encounter Care Teams Director Of Leadership Development Relationship Specialty Start Date End Date Brandon Dumont MD PCP - General 03/26/21 Abisai Moss MD Consulting Physician General Surgery 05/14/21 Nunu Steen MD Consulting Physician Gastroenterology 05/14/21 documented as of this encounter
--- OUTSIDE RECORDS SUMMARY | 2024-10-27 10:56 | XMS_ITS | Encounter Summary ---
Author Organization [facility] Address [address] [place] [address] Care Team Providers Care Program Host Name Role Phone Brandon Dumont MD Primary Care Provider [phone] Abisai Moss MD Unavailable Nunu Steen MD Unavailable [phone] Encounter Details Date Type Department Care Team (Late st Contact Info) Description 05/26/2021 10:25 AM CDT [address] Nunu Steen MD [address] [place] [address] Ernie Walter NP [address] [place] [address] Cholecystitis; S/P ERCP; Epigastric pain; Elevated liver enzymes Discharge Disposition: Discharge to home or self care Social History Tobacco Use Types Packs/Day Years Used Date Smoking Tobacco: Former Cigarettes Smokeless Tobacco: Never Comments:quit 2020 Alcohol Use Standard Drinks/Week Comments Not Currently 0 (1 standard drink = 0.6 oz pur e alcohol) Comments No Sex and Gender Information Value Date Recorded Sex Assigned at Not on file 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 Please let patient know that two of [...] Priority Date/Time Associated Diagnosis Comments EGFR Routine 05/26/2021 10:25 AM CDT Cholecystitis S/P ERCP Epigastric pain Elevated liver enzymes DIFFERENTIAL AUTO Routine 05/26/2021 10: 25 AM CDT Cholecystitis S/P ERCP Epigastric pain Elevated liver enzymes URINALYSIS AND REFLEX TO MICROSCOPIC AND CULTURE Routine 05/26/2021 10:25 AM CDT Cholecystitis S/P ERCP Epigastric pain Elevated liver enzymes CBC WITH AUTO DIFFERENTIAL Routine 05/26/2021 10:25 AM CDT Cholecystitis S/P ERCP Epigastric pain Elevated liver enzymes LIPASE Routine 05/26/2021 10:25 AM CDT Cholecystitis S/P ERCP Epigastric pain Elevated liver enzymes COMPREHENSIVE METABOLIC PANEL Routine 05/26/2021 10:25 AM CDT Cholecystitis S/P ERCP Epigastric pain Elevated liver enzymes documented in this encounter Results * eGFR (05/26/2021 10:25 AM CDT) eGFR 66 mL/min/1.7 3 m2 [facility] [place] [facility] Comment: Interpretive Data Reference Interval Normal ?>/= 90 mL/min/1.73m2 Mildly decreased* ? 60 - 89 mL/min/1.73m2 Mildly to moderately decreased ?45 - 59 mL/min/1.73m2 Moderately to severely decreased ??30 - 44 mL/min/1.73m2 Severely decreased ?15 - 29 mL/min/1.73m2 Kidney Failure ?< 15 ??mL/min/1.73m2 *Relative to young adult level Estimated glomerular filtration rate is determined by the CKD-EPI equation recommended by the National Kidney Foundation (KDIGO 2012 Clinical Practice Guideline for the Evaluation and Management of Chronic Kidney Disease. Kidney Intnl Suppl Nov 2012;3:1). The CKD-EPI equation should not be used for patients with unstable renal function and has not been validated in children and those over 70. Current interpretive data was last reviewed 2020 Blood specimen (specimen) 05/26/2021 10:25 AM CDT 05/26/2021 1:22 PM CDT Ernie Walter HISTOTECHNOLOGIST LAB BLOOD ORDERABLE S Final Result [facility] 1 [facility] Department [place] [address] * (ABNORMAL) Differential, auto (05/26/2021 10:25 AM CDT) Neutrophil abs 5.2 1.7 - 6.5 K/cumm [facility]) Imm gran abs 0.0 0.0 - 0.1 K/cumm [facility]) Lymphocyte abs 2.5 0.8 - 3.3 K/cumm [facility]) Monocyte abs 0.5 0.2 - 0.8 K/cumm [facility] ([facility]) Eosinophil abs 1.0(H) 0.0 - 0.5 K/cumm [facility]) Basophil abs 0.1 0.0 - 0.1 K/cumm [facility] Neutrophil pct 56.2 % [facility] ([facility] Comment: Interpretive [...] was last revised on 2018. Lymphocyte pct 26.8 % [facility] Comment: Interpretive [...] was last revised on 2018. Eosinophil pct 10.3 % [facility] Comment: Interpretive Data Percent cell count reference ranges are not reported, since discordance with absolute values may lead to misinterpretation of CBC data. Current Interpretive Data was last revised on 2018. Basophil pct 0.9 % [facility] Comment: Interpretive Data Percent cell count reference ranges are not reported, since discordance with absolute values may lead to misinterpretation of CBC data. Current Interpretive Data was last revised on 2018. Blood specimen (specimen) 05/26/2021 10:25 AM CDT 05/26/2021 1:22 PM CDT us Ernie Walter HISTOTECHNOLOGIST LAB BLOOD ORDERABLE S Final Result [facility] [place] [facility] 1 [facility] Department [place] [address] * (ABNORMAL) CBC with auto differential (05/26/2021 10:25 AM CDT) WBC 9.2 3.8 - 9.9 K/cumm [facility] Hgb 13.8 11.9 - 15.5 g/dL [facility] Hct 40.3 35.6 - 45.5 % [facility] Plt 255 150 - 400 K/cumm [facility] MPV 10.9 9.1 - 12.3 fL [facility] RBC 5.12 3.90 - 5.20 M/cumm [facility] MCV 78.7(L) 81.3 - 96.4 fL [facility] MCH 27.0(L) 27.1 - 33.3 pg [facility] MCHC 34.2 32.3 - 35.7 g/dL [facility] RDW CV 14.1 11.1 - 14.9 % [facility] RDW SD 40.6 35.7 - 48.1 fL [facility] NRBC abs 0.00 0.00 - 0.01 K/cumm [facility] Blood specimen (specimen) 05/26/2021 10:25 AM CDT 05/26/2021 1:22 PM CDT Ernie Walter HISTOTECHNOLOGIST LAB BLOOD ORDERABLE S Final Result [facility] 1 [facility] Department [place] [address] * (ABNORMAL) Comprehensive metabolic panel (05/26/2021 10:25 AM CDT) Pathologist [facility] Sodium 139 135 - 145 mmol/L [facility] Potassium, pl 4.6 3.3 - 4.9 mmol/L [facility] Chloride 104 97 - 110 mmol/L [facility] CO2 27 22 - 32 mmol/L [facility] Anion gap 8 2 - 15 mmol/L [facility] BUN 13 8 - 25 mg/dL [facility] Creatinine 0.95 0.60 - 1.10 mg/dL [facility] Glucose 80 70 - 199 mg/dL [facility] [...] interpretive data was last revised 2017. Calcium 8.9 8.5 - 10.3 mg/dL [facility] Bilirubin, total 0.3 0.1 - 1.2 mg/dL [facility] Protein, pl 6.5 6.5 - 8.5 g/dL [facility] Albumin 3.9 3.5 - 5.0 g/dL [facility] Alk phos 143(H) 40 - 130 Units/L [facility] ALT 19 7 - 45 Units/L [facility] AST 23 10 - 45 Units/L [facility] Blood specimen (specimen) 05/26/2021 10:25 AM CDT 05/26/2021 1:22 PM CDT Ernie Walter HISTOTECHNOLOGIST LAB BLOOD ORDERABLE S Final Result [facility] 1 [facility] Department of Laboratories [place], [place] [id number] * (ABNORMAL) Urinalysis reflex to microscopic and culture Urine (05/26/2021 10:25 AM CDT) Color, ur Yellow Yellow [facility] Clarity, ur Clear Clear [facility] Specific gravity, ur 1.025 1.010 - 1.025 [facility] pH, urine 6.5 [facility] Protein, ur ql Trace Negative [facility] Glucose, ur ql Negative Negative [facility] Ketones, ur Negative Negative [facility] Bilirubin, ur Negative Negative [facility] Blood, ur Negative Negative [facility] Urobilinogen, ur 2.0(A) <2.0 mg/dL [facility] Nitrite, ur Negative Negative [facility] Leukocyte esterase, ur Negative Negative [facility] UA reflex comment Reflex conditions for microscopic UA and culture not met. [facility] Urine 05/26/2021 10:2 5 AM CDT 05/26/2021 1:22 PM CDT Narrative [facility] ([facility] - 05/26/2021 1:32 PM CDT ?? Urine pH is affected by diet, medications, systemic acid-base disturbances, and renal tubular function. ??pH may affect urinary stone formation. ??For example, urine pH below 6.0 may help reduce the tendency for calcium phosphate stones and pH greater than 6.0 may reduce the tendency for uric acid stone formation. Source: [facility] [employer]. Last revised 11-17-2017 Ernie Walter NP LAB MICROBIOLOGY - GENERAL ORDERABLES Final Result [facility] [facility] 1 [facility] [place] [address] * Lipase (05/26/2021 10:25 AM CDT) Lipase 18 10 - 99 Units/L [facility] Blood specimen (specimen) 05/26/2021 10:25 AM CDT 05/26/2021 1:22 PM CDT [facility] [place] HISTOTECHNOLOGIST LAB BLOOD ORDERABLE S Final Result [facility] [facility] 1 [facility] [place] [address] documented in this encounter Visit Diagnoses Diagnosis Cholecystitis Cholecystitis, unspecified S/P ERCP Epigastric pain Abdominal pain, epigastric Elevated liver enzymes Other nonspecific abnormal serum enzyme levels documented in this encounter Care Teams Program Host Relationship Specialty Start Date End Date Brandon Dumont MD PCP - General 03/26/21 Abisai Moss MD Consulting Physician General Surgery 05/14/21 Nunu Steen MD Consulting Physician Gastroenterology 05/14/21 documented as of this encounter
--- OUTSIDE RECORDS SUMMARY | 2024-10-27 10:56 | XMS_ITS | Encounter Summary ---
Author Organization [facility] Address [address] [place] [address] Care Team Providers Care Lead Data Entry Operator Name Role Phone Brandon Dumont MD Primary Care Provider [phone] Abisai Moss MD Unavailable Nunu Steen MD Unavailable [phone] Encounter Details Date Type Department Care Team (Late st Contact Info) Description 05/26/[address] 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 Steen on 08-17-2021 @ 1 with an arrival at 12. Prep instructions were handed to patient Last colonoscopy: Never had one before Family history colon cancer (if yes, relationship to pt): No Personal history colon polyps or colon cancer: No Pt on blood thinner (if yes, list medication and reason for taking): No Has pt had recent stent placement within the last year: NO Pt have pacemaker/defibrillator: NO Pt diabetic (if yes, insulin or oral meds): NO Pt have kidney disease or on dialysis: NO Pt on iron: No Hx of Constipation: No Mechanical Heart valve: NO COVID-19 test verbally given to pt:NO Instructed pt to call with any medical changes and/or medications/insurance. documented in this encounter Plan of Treatment Not on file documented as of this encounter Visit Diagnoses Diagnosis Encounter for screening colonoscopy- Primary documented in this encounter Care Teams Lead Data Entry Operator Relationship Specialty Start Date End Date Brandon Dumont MD PCP - General 03/26/21 Abisai Moss MD Consulting Physician General Surgery 05/14/21 Nunu Steen MD Consulting Physician Gastroenterology 05/14/21 documented as of this encounter
--- OUTSIDE RECORDS SUMMARY | 2024-10-27 10:56 | XMS_ITS | Encounter Summary ---
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 beef specialist film was normal. A standard esophagogastroduodenoscopy scope was used for the examination of the upper gastrointestinal tract. The scope was passed under direct vision through the upper GI tract. The upper GI tract was normal. The ERCP scope introduced. The major papilla was small which may indicate papillary stenosis. No bile flow noted. The bile duct was deeply cannulated with the short-nosed traction sphincterotome. Contrast was injected. Opacification of the entire biliary tree was successful. The intra-hepatic and extra-hepatic biliary duct system was normal. No filling defects noted. A 7 mm biliary sphincterotomy was made with a short nose sphincterotome using blended current. There was no post-sphincterotomy bleeding. The biliary tree was swept with a 10 mm balloon starting at the upper third of the main bile duct. Nothing was found. Pancreatic duct was not cannulated Electronically signed by Nunu Steen M.D. Nunu Steen M.D. 05/14/2021 3:07:53 PM Number of Addenda: 0 Note Initiated On: 05/12/2021 2:37 PM Procedure Code(s): --- Professional --- 82843, Endoscopic retrograde cholangiopancreatography (ERCP); with sphincterotomy/papillotomy Diagnosis Code(s): --- Professional --- K80.50, Calculus of bile duct without cholangitis or cholecystitis without obstruction R74.8, Abnormal levels of other serum enzymes CPT copyright 2019 [employer]. All rights reserved. The codes documented in this report are preliminary and upon community services manager review may be revised to meet current compliance requirements. Recognized by the [employer] for promoting quality in endoscopy documented in this encounter Consult Notes * Nunu Steen MD - 05/12/2021 11:44 AM CDT Gastroenterology Consult Reason for consult: Retained stone? Date of Consult: 05/12/[address] Jess Moss for abnormal liver enzymes and possible stone in CBD SUBJECTIVE Patient is a 60 y.o. female with complaint of elevated liver enzymes and CBD stone. Patient was admitted to the hospital through the emergency room couple days ago. She does acute abdominal pain withnausea and vomiting. Imaging study showed stone in the bile duct and thickening of the gallbladder wall with cholelithiasis. She had cholecystectomy yesterday for cholecystitis. Intraoperative cholangiogram noted with questionable stone and slow flow of bile into the duodenum. Upon admission he urobilinogen was elevated. Now her urine color is yellow. Upper admission and yesterday liver enzymes were normal. Today liver enzymes were elevated with ALT and AST and alkaline phosphatase elevation. Bilirubin normal. Since the surgery yesterday she still have some mild upper abdominal discomfort but not severe pain. Overall pain has improved since admission. No fever no chills. She has some nausea but no vomiting. She has been on liquid diet. Past Medical History: Diagnosis Date ??? Bladder spasms ??? Chronic pain 2019 ??? Gall stones ??? Hot flashes Past Surgical History: Procedure Laterality Date ??? BACK SURGERY 2017 Medications Prior to Admission Medication Sig Dispense Refill Last Dose ??? cloNIDine (CATAPRES) 0.3 mg tablet Take 0.3 mg by mouth daily 05/09/2021 at Unknown time ??? cyclobenzaprine (FLEXERIL) 10 mg tablet Take 1 tablet (10 mg total) by mouth 3 (three) times a day as needed for muscle spasms 12 tablet 0 Past Week at Unknown time ??? diazePAM (VALIUM) 5 mg tablet Take 5 mg by mouth 3 (three) times a day as needed Past Week at Unknown time ??? ergocalciferol (VITAMIN D) 50,000 unit capsule Past Week at Unknown time ??? fluticasone propionate (FLONASE) 50 mcg/actuation nasal spray Administer 2 sprays into each nostril daily 16 g 11 ??? gabapentin (NEURONTIN) 300 mg capsule Take 1 capsule (300 mg total) by mouth nightly 90 capsule1 05/09/2021 at Unknown time ??? loratadine 10 mg capsule Take by mouth 05/09/2021 at Unknown time ??? meloxicam (MOBIC) 15 mg tablet Take 1 tablet (15 mg total) by mouth daily Do not take with other NSAIDs 90 tablet 1 Past Month at Unknown time ??? ondansetron ODT (ZOFRAN-ODT) 8 mg disintegrating tablet Take 1 tablet (8 mg total) by mouth every 8 (eight) hours as needed for nausea or vomiting 30 tablet 0 Past Month at Unknown time ??? oxybutynin (DITROPAN) 5 mg tablet 05/10/2021 at Unknown time ??? tapentadol ER (NUCYNTA ER) 100 mg 12 hr tablet Take 100 mg by mouth 2 times daily 05/09/2021 at Unknown time ??? traMADoL (ULTRAM) 50 mg tablet Take 50 mg by mouth every 6 (six) hours as needed Past Week at Unknown time ??? venlafaxine (EFFEXOR) 75 mg tablet Take 75 mg by mouth nightly 05/09/2021 at Unknown time No Known Allergies Social History Tobacco Use ??? Smoking status: Former Smoker Years: 40.00 ??? Smokeless tobacco: Never Used ??? Tobacco comment: quit 2019 Substance Use Topics ??? Alcohol use: Not Currently Family History Problem Relation Age of Onset ??? Heart attack Mother Family history of myocardial infarction - (Added by TW Conv) ??? Heart attack Father Family history of myocardial infarction - (Added by TW Conv) Review of Systems Constitutional: Positive for activity change and fatigue. HENT: Negative. Eyes: Negative. Respiratory: Negative. Cardiovascular: Negative. Gastrointestinal: Positive for abdominal pain and nausea. Endocrine: Negative. Genitourinary: Negative. Musculoskeletal: Negative. Skin: Negative. Neurological: Negative. Psychiatric/Behavioral: Negative. Vitals: BP 140/81 (BP Location: Right arm, Patient Position: Held) Pulse 58 Temp (!) 35.8 ??C (96.5 ??F) (Temporal) Resp 16 Ht 165.1 cm (5' 5 ) Wt 67 kg (147 lb 11.3 oz) SpO2 93% BMI 24.58 kg/m?? OBJECTIVE Physical Exam: Patient is alert and oriented to time and place and self. Patient appears comfortable. Eyes: no jaundice. Lymphatics: no submandibular and no subclavicular lymphadenopathy. Lungs: CTA anteriorly. ENT: no mouth ulcers. GI: abdomen is soft, no distention, mild upper abdominal tenderness, bowel sounds positive. Musculoskeletal: no joint swelling, no edema. Skin: no rash. Psych: mood seems normal. Noconfusion. Lab/Radiology/Diagnostic Review: Labs and X rays reviewed. Recent Results (from the past 48 hour(s)) Urinalysis reflex to microscopic and culture Urine Collection Time: 05/10/21 1:11 PM Specimen: Urine Result Value Ref Range Color, ur Yellow Yellow Clarity, ur Clear Clear Specific gravity, ur OVER 1.010 - 1.025 pH, urine 5.5 Protein, ur ql Trace Negative Glucose, ur ql Negative Negative Ketones, ur Negative Negative Bilirubin, ur Negative Negative Blood, ur Negative Negative Urobilinogen, ur 2.0 (A) <2.0 mg/dL Nitrite, ur Negative Negative Leukocyte esterase, ur Negative Negative UA reflex comment Reflex conditions for microscopic UA and culture not met. COVID-19 Coronavirus RNA Nasopharyngeal Collection Time: 05/10/21 1:11 PM Specimen: Nasopharyngeal Result Value Ref Range COVID-19 RNA Negative Negative First COVID-19 test? No Employeed in healthcare? Unknown status? No Group care resident? Unknown Hospitalized? Unknown Is patient in ICU? Unknown Symptomatic as defined by CDC? No Hepatic function panel Collection Time: 05/12/21 4:23 AM Result Value Ref Range Bilirubin, total 0.4 0.1 - 1.2 mg/dL Bilirubin, direct <0.2 0.1 - 0.3 mg/dL Protein, pl 5.6 (L) 6.5 - 8.5 g/dL Albumin 3.2 (L) 3.5 - 5.0 g/dL Alk phos 151 (H) 40 - 130 Units/L ALT 197 (H) 7 - 45 Units/L AST 135 (H) 10 - 45 Units/L No results found. GI IMPRESSION: 1. Acute cholecystitis with cholelithiasis. Imaging showed the small stone in the distal bile duct. 2. Abnormal liver enzymes. Could well be secondary to post surgery, cholecystitis, or retained stone in the bile duct. GI PLAN: 1. Continue antibiotics. 2. Aggressive fluid management. ERCP today. 3. The procedure of ERCP was discussed with the patient for the indications and possible complications of bleeding infection and risk of pancreatitis. 4. DVT and GI prophylaxis. Voice recognition software [employer] was used dictate and transcribe this document. Rn L And D variances may occur. Despite proofreading, typographical errors may occur. Nunu Steen MD * Jess Moss MD - 05/11/2021 8:44 AM CDTAssociated Order(s): IP CONSULT TO GENERAL SURGERY Surgery Consult Subjective: Patient Name: Kashmir Arguello Date of Consult: 05/11/21 HPI: Kashmir Arguello is a 60 y.o. female presenting for surgical evaluation of abdominal pain. She states that this began yesterday. It was located in the epigastrium and radiated up into a substernal location as well as the right upper quadrant. This pain was sharp in nature. It was constant. Nothing was noted to worsen or alleviate the symptoms. This was associated with dry heaves. She has had known gallstones and frequent attacks over the past few years. She has never had a colonoscopy before. Given the persistent nature of the pain she came in for further evaluation Chief Complaint: Abdominal Pain Attending Provider: Stepan Phelps Jr* Allergies as of 05/10/2021 ??? (No Known Allergies) Current Facility-Administered Medications: ??? [JAN Hold] cloNIDine (CATAPRES) tablet 0.3 mg, 0.3 mg, oral, Daily ??? [JAN Hold] cyclobenzaprine (FLEXERIL) tablet 10 mg, 10 mg, oral, TID PRN ??? [JAN Hold] diazePAM (VALIUM) tablet 5 mg, 5 mg, oral, Q8H PRN ??? [JAN Hold] docusate sodium (COLACE) capsule 100 mg, 100 mg, oral, BID PRN ??? [JAN Hold] enoxaparin (LOVENOX) syringe 40 mg, 40 mg, subcutaneous, Daily- 2100, 40 mg at 05/10/212021 ??? [JAN Hold] fluticasone propionate (FLONASE) 50 mcg/actuation nasal spray 2 spray, 2 spray, eachnostril, Daily ??? [JAN Hold] gabapentin (NEURONTIN) capsule 300 mg, 300 mg, oral, Nightly, 300 mg at 05/10/212021 ??? [JAN Hold] HYDROmorphone (DILAUDID) injection 0.5 mg, 0.5 mg, intravenous, Q3H PRN, 0.5 mg at 05/11/21 0541 ??? Lactated Ringer's (LR) infusion, 125 mL/hr, intravenous, Continuous, Last Rate: 125 mL/hr at 05/11/21 0600, 125 mL/hr at 05/11/21 0600 ??? [JAN Hold] loratadine (CLARITIN) tablet 10 mg, 10 mg, oral, Daily ??? [JAN Hold] meloxicam (MOBIC) tablet 15 mg, 15 mg, oral, Daily PRN ??? [JAN Hold] ondansetron ODT (ZOFRAN-ODT) disintegrating tablet 4 mg, 4 mg, oral, Q6H PRN OR [JAN Hold] ondansetron (ZOFRAN) injection 4 mg, 4 mg, intravenous, Q6H PRN, 4 mg at 05/10/21 1551 ??? [JAN Hold] oxybutynin (DITROPAN) tablet 5 mg, 5 mg, oral, BID, 5 mg at 05/10/212021 ??? [JAN Hold] piperacillin-tazobactam (ZOSYN) 3.375 g in sodium chloride 0.9% 50 mL IVPB, 3.375 g,intravenous, Q6H JOSE, Last Rate: 130 mL/hr at 05/11/2137, 3.375 g at 05/11/21 0537 ??? [JAN Hold] traMADoL (ULTRAM) tablet 50 mg, 50 mg, oral, Q6H PRN ??? [JAN Hold] venlafaxine (EFFEXOR) tablet 75 mg, 75 mg, oral, Nightly, 75 mg at 05/10/212021 Past Medical History: Diagnosis Date ??? Bladder spasms ??? Chronic pain 2019 ??? Gall stones ??? Hot flashes Past Surgical History: Procedure Laterality Date ??? BACK SURGERY 2017 Family History Problem Relation Age of Onset ??? Heart attack Mother Family history of myocardial infarction - (Added by TW Conv) ??? Heart attack Father Family history of myocardial infarction - (Added by TW Conv) Social History Socioeconomic History ??? Marital status: Single Spouse name: Not on file ??? Number of children: Not on file ??? Years of education: Not on file ??? Highest education level: Not on file Occupational History ??? Not on file Tobacco Use ??? Smoking status: Former Smoker Years: 40.00 ??? Smokeless tobacco: Never Used ??? Tobacco comment: quit 2020 Vaping Use ??? Vaping Use: Never used Substance and Sexual Activity ??? Alcohol use: Not Currently ??? Drug use: Not on file ??? Sexual activity: Not on file Other Topics Concern ??? Not on file Social History Narrative Single : (Added by TW Conv) No alcohol use : (Added by TW Conv) Social Determinants of Health Financial Resource Strain: ??? Difficulty of Paying Living Expenses: Food Insecurity: ??? Worried About Running Out of Food in the Last Year: ??? Ran Out of Food in the Last Year: Transportation Needs: ??? Lack of Transportation (Medical): ??? Lack of Transportation (Non-Medical): Physical Activity: ??? Days of Exercise per Week: ??? Minutes of Exercise per Session: Stress: ??? Feeling of Stress : Social Connections: ??? Frequency of Communication with Friends and Family: ??? Frequency of Social Gatherings with Friends and Family: ??? Attends Jain Services: ??? Active Member of Clubs or Organizations: ??? Attends Club or Organization Meetings: ??? Marital Status: Intimate Partner Violence: ??? Fear of Current or Ex-Partner: ??? Emotionally Abused: ??? Physically Abused: ??? Sexually Abused: Review of Systems Constitutional: Negative for activity change. HENT: Negative for hearing loss and sore throat. Eyes: Negative for visual disturbance. Respiratory: Negative for cough and shortness of breath. Cardiovascular: Negative for chest pain. Gastrointestinal: Positive for abdominal pain. Genitourinary: Negative for dysuria. Musculoskeletal: Negative for back pain. Neurological: Negative for dizziness and syncope. Psychiatric/Behavioral: Negative for agitation and confusion. Objective: Temp: [36.1 ??C (97 ??F)-36.7 ??C (98.1 ??F)] 36.7 ??C (98.1 ??F) Pulse: [46-78] 55 Resp: [16-20] 20 BP: (113-158)/(64-97) 146/76 Physical Exam Constitutional: The patient is oriented to person, place, and time. They appear well-nourished. No distress. HENT: Head: Normocephalic and atraumatic. Eyes: Pupils are equal, round, and reactive to light. Neck: No thyromegaly present. Cardiovascular: Normal rate and regular rhythm. Pulmonary/Chest: Effort normal and breath sounds normal. Abdominal: Soft. non distended. Mild tenderness in the right upper quadrant Genitourinary: Rectum normal. Musculoskeletal: Normal range of motion. Neurological: alert and oriented to person, place, and time. Skin: Skin is warm and dry. Psychiatric: normal mood and affect. Labs: White blood cell count 9.6, AST 42, ALT 27, alkaline phosphatase 0.4 Imaging: CT abdomen pelvis was reviewed. The patient was found to have cholelithiasis with gallbladder wall thickening. The biliary ducts were mildly dilated with a probable filling defects seen. There was also some rectal wall thickening seen Assessment: Present on Admission: ??? Cholecystitis ??? Lumbar radiculopathy ??? Menopause present ??? Anxiety Plan: We will set the patient up for cholecystectomy with cholangiogram. We discussed that if there is a filling defect that we cannot remove at the time of surgery GI will be consulted to help with a possible ERCP. Given the thickening of her rectum seen on imaging as well as the fact that she has not had a colonoscopy in the past we will make arrangements for her to obtain this once discharged. She will be left NPO for the procedure. Consent to be obtained. All questions asked. Jess Moss MD 8:44 AM 05/11/2021 documented in this encounter Nursing Notes * Julia Moreno RN - 05/14/2021 4:29 PM CDT 1629-Reviewed discharge instructions with patient. Answered all questions. All personal belongings discharged with patient. Transported per wheelchair to [facility] where grandson picked up. documented in this encounter ED Notes * Bindu Landers MD - 05/10/2021 11:38 AM CDT Triage Chief Complaint: Chief Complaint Patient presents with ??? Abdominal Pain Portions of the record may have been created with voice recognition software. Occasional wrong-word or '[id number]' substitutions may have occurred due to the inherent limitations of voice recognition software. Read the chart carefully and recognize, using context, where substitutions have occurred. H&P: Kashmir Arguello is a 60 y.o. female with h/o cholelithiasis and biliary colic presents for epigastric and right upper quadrant pain that radiates to the back. It started this morning after having hercoffee. She did not have any breakfast this morning. No clear inciting factor. Made worse with movements. Has been constant. No relieving factor. Has not taken any medications. Feels similar to previous episode. No fever. It is associated with nausea vomiting. Patient had an loose stool this morning that was not diarrhea or watery with no black or bloody stool. No hematemesis. No vaginal bleedingor discharge. LMP was more than 5 years ago, patient reports being met postmenopausal. No history of abdominal surgeries. Patient does endorse dysuria, no frequency or urgency. No chest pain or shortness of breath or cough. No known sick contacts. ROS: At least 10 systems reviewed and otherwise negative except as in the HPI. Past Medical History: Diagnosis Date ??? Bladder spasms ??? Chronic pain 2019 ??? Gall stones ??? Hot flashes Past Surgical History: Procedure Laterality Date ??? BACK SURGERY 2017 HOME MEDICATIONS : cloNIDine (CATAPRES) 0.3 mg tablet cyclobenzaprine (FLEXERIL) 10 mg tablet diazePAM (VALIUM) 5 mg tablet ergocalciferol (VITAMIN D) 50,000 unit capsule fluticasone propionate (FLONASE) 50 mcg/actuation nasal spray gabapentin (NEURONTIN) 300 mg capsule HYDROcodone-ibuprofen (VICOPROFEN) 7.5-200 mg per tablet loratadine 10 mg capsule meloxicam (MOBIC) 15 mg tablet metroNIDAZOLE (METROGEL) 0.75 % vaginal gel ondansetron ODT (ZOFRAN-ODT) 8 mg disintegrating tablet oxybutynin (DITROPAN) 5 mg tablet tapentadol ER (NUCYNTA ER) 100 mg 12 hr tablet traMADoL (ULTRAM) 50 mg tablet venlafaxine (EFFEXOR) 75 mg tablet No Known Allergies Social history: Former smoker, no alcohol Nursing Notes Reviewed. Physical Exam: ED Triage Vitals [05/10/21 1101] Temp Pulse Resp BP SpO2 36.3 ??C (97.4 ??F) 78 16 158/97 95 % Temp src Heart Rate Source Patient Position BP Location FiO2 (%) Temporal -- -- -- -- GENERAL APPEARANCE: Awake and alert. Appears uncomfortable. HEAD: Atraumatic. EYES: Sclera anicteric. EOMI. ENT: Tolerates saliva. NECK: Supple. Trachea midline. HEART: RRR. Radial pulses 2+. LUNGS: Respirations unlabored. CTAB. ABDOMEN: Soft. + Alonso sign. Mild tenderness throughout with palpation, will cause some pain in the epigastrium or right upper quadrant. EXTREMITIES: No acute deformities. SKIN: Warm and dry. NEUROLOGICAL: No gross facial drooping. Moves all 4 extremities spontaneously. Normal speech and mental status. No ataxia noted. PSYCHIATRIC: Normal mood. I have reviewed and interpreted all of the currently available lab results from this visit (if applicable): Labs Reviewed CBC WITH AUTO DIFFERENTIAL - Abnormal Result Value WBC 9.7 Hgb 13.8 Hct 39.9 Plt 223 MPV 10.4 RBC 5.09 MCV 78.4 (*) MCH 27.1 MCHC 34.6 RDW CV 13.9 RDW SD 39.8 NRBC abs 0.00 DIFFERENTIAL AUTO - Abnormal Neutrophil abs 5.6 Imm gran abs 0.0 Lymphocyte abs 2.9 Monocyte abs 0.6 Eosinophil abs 0.6 (*) Basophil abs 0.1 Neutrophil pct 57.4 Imm gran pct 0.3 Lymphocyte pct 29.9 Monocyte pct 5.7 Eosinophil pct 6.1 Basophil pct 0.6 URINALYSIS AND REFLEX TO MICROSCOPIC AND CULTURE COVID-19 CORONAVIRUS RNA COMPREHENSIVE METABOLIC PANEL Sodium 139 Potassium, pl 3.8 Chloride 105 CO2 23 Anion gap 10 BUN 21 Creatinine 1.09 Glucose 98 Calcium 8.7 Bilirubin, total 0.4 Protein, pl 6.6 Albumin 3.8 Alk phos 110 ALT 27 AST 42 LIPASE Lipase 20 SEPSIS LACTATE WITH REFLEX Sepsis Lactate 0.9 TROPONIN T HIGH-SENSITIVITY SERIES (BASELINE, 2HR, 4HR, 6HR) Trop T hs 7 EGFR GFR 56 Radiographs (if obtained): Report Reviewed: CT Abdomen Pelvis W Contrast Final Result XR Chest 1 Vw Portable Final Result ? IMPRESSION: ?? 1. Mild patchy bibasilar airspace opacities, which is likely related to subsegmental atelectasis/scarring and less likely developing airspace disease. ? IMPRESSION: ?? 1. Cholelithiasis with mild gallbladder wall thickening. Mild biliary ductal dilatation with probable filling defect in the distal duct concerning for choledocholithiasis. Follow-up MRCP recommended to further evaluate. ?? 2. Mild diffuse hepatic steatosis ?? 3. Circumferential lower rectal wall thickening, correlate with digital rectal exam and colonoscopy if one has not been performed recently ?? 4. Enlarged, fibroid replaced uterus ?? 5. 6.9 cm mass right pelvis-pedunculated fibroid favored over a adnexal mass but this could be confirmed with nonemergent pelvic ultrasound or MR. ? EKG (if obtained): (All EKGs are interpreted by myself in the absence of a other wood processing machine operator) Sinus rhythm with a rate of 58, normal intervals, normal axis, normal ST segments and T-waves no STEMI. Heart rate slightly low. Borderline bradycardia. No previous for comparison. Procedures Chart review shows: 03/26/2021 TECHNIQUE: Ultrasound of the right upper quadrant of the abdomen was performed with grayscale and color doppler. ?? COMPARISON: None ?? FINDINGS: ?? PANCREAS: Visualized portions of the pancreas are within normal limits. Portions of the pancreatic body and tail are obscured due to bowel gas. ?? LIVER: The liver appears normal in echotexture and echogenicity. No focal lesion identified. The main portal vein is patent with antegrade flow. ?? GALLBLADDER: There are multiple shadowing gallstones along the dependent portion of the gallbladder. There is no evidence of gallbladder wall thickening or pericholecystic fluid. ?? BILIARY: There is no intrahepatic or extrahepatic biliary ductal dilatation. Common bile duct measures 3 mm in diameter. ?? RIGHT KIDNEY: Normal size. Normal echogenicity. No solid mass or cyst. No hydronephrosis. Measures 10 cm in length. ?? OTHER: No other significant findings. ? IMPRESSION: Cholelithiasis. ? ED course/MDM: Vitals: 05/10/21 1101 BP: 158/97 Pulse: 78 Resp: 16 Temp: 36.3 ??C (97.4 ??F) TempSrc: Temporal SpO2: 95% Weight: 62.6 kg (138 lb) Height: 165.1 cm (5' 5 ) ED Course as of May 10 1307 Time: 05/10 1254 Comment: Dr. Moss agrees to consult on patient. Would take her to the OR tomorrow and could do cholangiogram at that time. We do not have GI today or tomorrow but he should be back Tuesday. So hesaid that he thinks it would be appropriate for patient to be admitted at this hospital. By: Bindu Landers MD Time: 05/10 130 Comment: Spoke to who agrees to admit patient By: Bindu Landers MD Clinical Impression: 1. Cholecystitis 2. Uterine leiomyoma, unspecified location Disposition: Admit (Please note that portions of this note may have been completed with a voice recognition program. Rn L And D errors occur. Please contact me for any clarification.) Bindu Landers MD 05/10/21 130 * Anjali Perry RN - 05/10/2021 10:59 AM CDT 60 yr old female presents to the ED with C/O substernal pain she reports radiates to her back. Pt awake and alert, states that she is also having pain below that area and to her RUQ. Pt states its my gallbladder reporting that she has a history of gallbladder problems. Pt reports nausea, denies co nstipation, denies diarrhea. documented in this encounter Miscellaneous Notes * Plan of Care - Julia Moreno RN - 05/14/2021 10:41 AM CDT Goals: Clinical Goals for the Shift: VSS, pain control, good intake and output, and remain free from injury Summary:adequate pain control, VSS, free from falls/injury * Plan of Care - Lupe Larson RN - 05/14/2021 4:22 AM CDT Problem: Health Behavior: Goal: Understanding of discharge needs will improve Outcome: Progressing Problem: Bowel/Gastric: Goal: Gastrointestinal status for postoperative course will improve Outcome: Progressing Problem: Lack of Knowledge: Goal: Understanding of discharge needs will improve Outcome: Progressing Problem: Coping: Goal: Level of anxiety will decrease Outcome: Progressing Problem: Physical Regulation: Goal: Postoperative complications will be avoided or minimized Outcome: Progressing Problem: Respiratory: Goal: Will remain free from respiratory infection Outcome: Progressing Problem: Sensory: Goal: Pain level will decrease Outcome: Progressing Problem: Skin Integrity: Goal: Will remain free from wound infection Outcome: Progressing Goals: Clinical Goals for the Shift: VSS, pain control, good intake and output, and remain free from injury Summary: VSS, pain is well controled, has good intake and output, up independently, incisions are clean dry and intact, and will continue to monitor * Plan of Care - Yanni Ruiz, TRINI - 05/14/2021 3:04 AM CDT Pt currently on room air, nebs, bilateral clear diminished BS, no distress. Plan- Continue current therapy, and monitor pt. * Plan of Care - Paty Quinn RN - 05/13/2021 6:09 PM CDT Problem: Health Behavior: Goal: Understanding of discharge needs will improve Outcome: Progressing Problem: Bowel/Gastric: Goal: Gastrointestinal status for postoperative course will improve Outcome: Progressing Problem: Lack of Knowledge: Goal: Understanding of discharge needs will improve Outcome: Progressing Problem: Coping: Goal: Level of anxiety will decrease Outcome: Progressing Problem: Physical Regulation: Goal: Postoperative complications will be avoided or minimized Outcome: Progressing Problem: Respiratory: Goal: Will remain free from respiratory infection Outcome: Progressing Problem: Sensory: Goal: Pain level will decrease Outcome: Progressing Problem: Skin Integrity: Goal: Will remain free from wound infection Outcome: Progressing Goals: Clinical Goals for the Shift: Patient will have VSS, joelle diet, passing flatus Summary: Dr Kirk here to see earlier for elevated BP and occasional shortness of breath when resting in bed, lungs sound only slightly diminished, respiratory treatment tolerated well, BP medicationstarted, up to bathroom independently to void, oxygen in place now at 2 liters per n/c, dozes at intervals, belly soft and taking clear liquids fair, incisions intact from laparoscopy. * Plan of Care - Elodia Perry RN - 05/13/2021 3:17 AM CDT Problem: Health Behavior: Goal: Understanding of discharge needs will improve Outcome: Progressing Problem: Bowel/Gastric: Goal: Gastrointestinal status for postoperative course will improve Outcome: Progressing Problem: Lack of Knowledge: Goal: Understanding of discharge needs will improve Outcome: Progressing Problem: Coping: Goal: Level of anxiety will decrease Outcome: Progressing Problem: Physical Regulation: Goal: Postoperative complications will be avoided or minimized Outcome: Progressing Problem: Respiratory: Goal: Will remain free from respiratory infection Outcome: Progressing Problem: Sensory: Goal: Pain level will decrease Outcome: Progressing Problem: Skin Integrity: Goal: Will remain free from wound infection Outcome: Progressing Clinical Goals for the Shift: Patient will remain hemodynamically stable. Summary: Patient's blood pressure has been elevated this shift. Complained of a minimum amount of pain and was offered pain meds but she refused. Is voiding without difficulty. * Plan of Care - Paty Quinn RN - 05/12/2021 6:29 PM CDT Problem: Health Behavior: Goal: Understanding of discharge needs will improve Outcome: Progressing Problem: Bowel/Gastric: Goal: Gastrointestinal status for postoperative course will improve Outcome: Progressing Problem: Lack of Knowledge: Goal: Understanding of discharge needs will improve Outcome: Progressing Problem: Coping: Goal: Level of anxiety will decrease Outcome: Progressing Problem: Physical Regulation: Goal: Postoperative complications will be avoided or minimized Outcome: Progressing Problem: Respiratory: Goal: Will remain free from respiratory infection Outcome: Progressing Problem: Sensory: Goal: Pain level will decrease Outcome: Progressing Problem: Skin Integrity: Goal: Will remain free from wound infection Outcome: Progressing Goals: Clinical Goals for the Shift: pt will have pain controlled, VSS, procedure completed Summary: tolerated ERCP well, BP monitored, iv fluids continue with antibiotics, up to bathroom andvoided post procedure, 3 lap sites intact to abdomen, taking oral liquids fair. * Brief Op Note - Nunu Steen MD - 05/12/2021 3:30 PM CDT Operative Progress Note Surgical Team: Surgeon(s) and Role: * Nunu Steen MD - Primary Anesthesiologist: Zack To MD STONEWORKING BELT SANDER: Javier Vizcaino CRNA Endoscopy Nurse: Josefina Funk RN; Linda Larson RN DATE OF SURGERY : 05/12/2021 Preoperative Diagnosis: Pre-op Diagnosis * Cholecystitis [K81.9] * Elevated liver enzymes [R74.8] * Choledocholithiasis with acute cholecystitis [K80.42] Postoperative Diagnosis: Post-op Diagnosis * Cholecystitis [K81.9] * Elevated liver enzymes [R74.8] * Choledocholithiasis with acute cholecystitis [K80.42] Procedure(s): Procedure(s) (LRB): ERCP (N/A) Operative Findings: EGD: normal ERCP: ampulla seems fibrotic, CBD and intrahepatic ducts normal. 7 mm sphincterotomy performed. Balloon sweep of the CBD with 10 mm balloon and nothing found. No bile leak. PD not cannulated. Plan: - NPO till tomorrow am - IV fluids - Continue Zosyn Estimated Blood Loss: No blood loss documented. Specimens: No specimen collected in procedure Implants: Nothing was implanted during the procedure Blood/Blood Products Transfused: none Complications: None Condition on Discharge from the operating room was stable Nunu Steen MD Date: 05/12/2021 Time: 3:56 PM No Resident involved on case * Plan of Care - Elodia Perry RN - 05/12/2021 4:37 AM CDT Problem: Health Behavior: Goal: Understanding of discharge needs will improve Outcome: Progressing Problem: Bowel/Gastric: Goal: Gastrointestinal status for postoperative course will improve Outcome: Progressing Problem: Lack of Knowledge: Goal: Understanding of discharge needs will improve Outcome: Progressing Problem: Coping: Goal: Level of anxiety will decrease Outcome: Progressing Problem: Physical Regulation: Goal: Postoperative complications will be avoided or minimized Outcome: Progressing Problem: Respiratory: Goal: Will remain free from respiratory infection Outcome: Progressing Problem: Sensory: Goal: Pain level will decrease Outcome: Progressing Problem: Skin Integrity: Goal: Will remain free from wound infection Outcome: Progressing Clinical Goals for the Shift: Patient will remain hemodynamically stable. Summary: Pt's VS stable. Complained of a moderate amount of pain and was given Dilaudid and Tramadol. Had a cough and was given [facility]. * Plan of Care - Mukul Magdaleno RN - 05/11/2021 4:38 PM CDT Problem: Health Behavior: Goal: Understanding of discharge needs will improve Outcome: Progressing Problem: Bowel/Gastric: Goal: Gastrointestinal status for postoperative course will improve Outcome: Progressing Problem: Lack of Knowledge: Goal: Understanding of discharge needs will improve Outcome: Progressing Problem: Coping: Goal: Level of anxiety will decrease Outcome: Progressing Problem: Physical Regulation: Goal: Postoperative complications will be avoided or minimized Outcome: Progressing Problem: Respiratory: Goal: Will remain free from respiratory infection Outcome: Progressing Problem: Sensory: Goal: Pain level will decrease Outcome: Progressing Problem: Skin Integrity: Goal: Will remain free from wound infection Outcome: Progressing Goals: Summary: conts to have pain but is improving. Has cough from surgery. * Perioperative Nursing Note - Emi Scott RN - 05/11/2021 11:03 AM CDT Pt awake ao x 3, nad, vss, taking ice chips w/o diff. No nausea. C/o pain at incision sites, resting quietly, drifts off to sleep easily. nad * Op Note - Jess Moss MD - 05/11/2021 9:13 AM CDT NAME: Kashmir Arguello DATE OF : 1960 SURGEON: Jess Moss MD DENTAL ASSISTANT MEDICAL ASSISTANT:Non Food Receiving Clerk: Yuliya Masters RN Inspector Clip On Sunglasses: Oliver Johnson RT Scrub: Janelle Luong ST RNFA: Monica Cabral RN DATE OF SURGERY: 05/11/2021 PREOP DIAGNOSES: Acute cholecystitis, choledocholithiasis POSTOP DIAGNOSES: Acute cholecystitis, choledocholithiasis PROCEDURE: Laparoscopic cholecystectomy with intraoperative cholangiogram INDICATIONS OF PROCEDURE: The patient is a 60-year-old female with progressively worsening right upper quadrant abdominal pain associated with p.o. Intake. The pain was associated with nausea and vomiting. They presented to the ER as the pain acutely worsened and was found to have a thickened gallbladder wall as well as cholelithiasis. There is also some concern on imaging about a filling defect in the common bile duct. Given these findings we set them up for cholecystectomy with intraoperativecholangiogram. We discussed that if retained stone or elevation of the labs a post procedure ERCP may be needed. They were in understanding and wished to proceed DETAILS OF PROCEDURE: After informed consent was obtained the patient was taken to the operating room and placed supine on the operating table. SCD boots were applied to bilateral lower extremities. General endotracheal intubation was achieved. Perioperative antibiotics were administered and a preoperative time-out completed. The patient was then prepped and draped in standard sterile fashion. Attention was directed towards the abdomen where a 1 cm supraumbilical incision was made. Using Optiview technique a 5 mm trocar and 0 degree scope was inserted into the abdominal cavity under direct visualization. No bowel noted to be in the vicinity of this initial trocar entrance. The abdomen was insufflated to 15 mm ofmercury. At this time a a 12 mm trocar was placed in the subxiphoid location and two 5 mm trocars along the right costal margin. The patient was placed in reverse Trendelenburg and rotated to their left. The gallbladder was Thickened and edematous consistent with acute cholecystitis. The gallbladder was then grasped and retracted over the dome of the liver. At this time the peritoneum overlying the gallbladder was scored. The cystic duct and cystic artery were then circumferentially dissected free to achieve the critical view. At this time a clip was placed proximally on the cystic duct and the duct partially transected. An intraoperative cholangiogram was then performed. This demonstratedSome tapering of the distal common bile duct with some delayed transit of contrast into the duodenum. The hepatic radicles could not be filled despite several maneuvers. The contrast started to go upin that direction but again we could not get the bifurcation to denote itself. Next 2 clips were los sera distally on the cystic duct and the remaining portion of the duct transected. Two clips were then placed proximally and distally on the cystic artery and the artery transected. The gallbladder was then dissected off of the gallbladder fossa using spatula cautery. The gallbladder was placed in an Endo- Catch bag and brought out through the 12 mm trocar site. At this time hemostasis was checked and achieved. Clips were in good location. Given the concern for some thickening of the rectum on imaging attention was directed towards the pelvis. The patient was placed head down and the small bowel retracted. The patient had a very large pedunculated mass hanging off of the uterus. This was I left anterior lateral position. There is a further 1 that was in a more posterior direction. The rectum was grasped elongated. There were no sign of discrete thickening, scarring or mass extending down as low as we could evaluate the rectum. At this time trocars were removed under direct visualization. No bleeding was noted. Pneumoperitoneum was evacuated. The fascia of the 12 mm trocar site was closed with a [id number] 0 Vicryl stitch. Remaining trocars were closed with interrupted 4 Monocryl subcuticular stitches. Dermabond was then applied. The patient was awoken from anesthesia and transferred to recovery in stable condition. At the end of the procedure all sponge, needle and instrument counts were reported to be correct x2 at the end of the case. ANESTHESIA: General. Plus 10 cc of 0.5% Marcaine COMPLICATIONS: None BLOOD LOSS: 10 cc SPECIMEN: Gallbladder Jess Moss MD 05/11/2021 10:18 AM * Plan of Care - Lindsey Bates RN - 05/11/2021 4:05 AM CDT Problem: Health Behavior: Goal: Understanding of discharge needs will improve Outcome: Progressing Problem: Lack of Knowledge: Goal: Understanding of discharge needs will improve Outcome: Progressing Problem: Coping: Goal: Level of anxiety will decrease Outcome: Progressing Problem: Sensory: Goal: Pain level will decrease Outcome: Progressing Problem: Bowel/Gastric: Goal: Gastrointestinal status for postoperative course will improve Outcome: Defer Problem: Physical Regulation: Goal: Postoperative complications will be avoided or minimized Outcome: Defer Problem: Respiratory: Goal: Will remain free from respiratory infection Outcome: Defer Problem: Skin Integrity: Goal: Will remain free from wound infection Outcome: Defer Goals: Summary: vs stable, c/o minimal pain and refused pain medication. Iv fluids and antibiotics cont. Npo diet for surgery today. Labs as ordered. Up ad ebony and gait steady, free from falls or injuries. Call light in reach. * Assessment & Plan Note - Stepan Phelps Jr., MD - 05/10/2021 4:14 PM CDTAssociated Problem(s): Cholecystitis Symptoms classic for cholecystitis especially with known colelithiasis and choledocholithiasis seenon CT. General surgery consulted, lap choly planned tomorrow. NPO at MN. IV pain control. * Plan of Care - Karolina Villalpando RN - 05/10/2021 2:12 PM CDT Problem: Health Behavior: Goal: Understanding of discharge needs will improve Outcome: Progressing Problem: Bowel/Gastric: Goal: Gastrointestinal status for postoperative course will improve Outcome: Progressing Problem: Lack of Knowledge: Goal: Understanding of discharge needs will improve Outcome: Progressing Problem: Coping: Goal: Level of anxiety will decrease Outcome: Progressing Problem: Physical Regulation: Goal: Postoperative complications will be avoided or minimized Outcome: Progressing Problem: Respiratory: Goal: Will remain free from respiratory infection Outcome: Progressing Problem: Sensory: Goal: Pain level will decrease Outcome: Progressing Problem: Skin Integrity: Goal: Will remain free from wound infection Outcome: Progressing * ED Triage Provider Note - Reji Joseph PA - 05/10/2021 11:03 AM CDT Rapid Medical Evaluation: S - 60-year-old female presents with chief complaint of substernal chest pain, epigastric pain, andright upper quadrant pain. Onset this morning. States she awoke with it. Accompanied by dry heaves.Radiates through to her back. Describes it as severe, constant, and sharp. Nothing aggravates or alleviates it. States she has a history of gallbladder problems off and on for the past couple of years. She is slated to see a surgeon for the problem in a couple of weeks. Denies fever or chills. Alsocomplains of burning with urination O - CONSTITUTIONAL: Well-nourished; in no apparent distress HEAD: Normocephalic; atraumatic EYES: PERRL; conjunctiva and sclera are clear bilaterally. CARD: Regular rhythm. Rate WNL. RESP: Normal respiratory effort; breath sounds clear and equal bilaterally. ABD: Normal bowel sounds; right upper quadrant and epigastric tenderness MUSCULOSKELETAL: Normal ROM in all four extremities. SKIN: warm; dry; good turgor. NEURO: COA x 3. Motor and sensory grossly intact. A - substernal chest pain. Epigastric and right upper quadrant pain. History of gallbladder problems. Nausea P - IV, cardiac rule out/GI workup, IV fluids, IV antiemetics. To go to main ER when room available. Voice recognition software [employer] was used to dictate and transcribe this document. Rn L And D variances may occur. Despite proofreading, typographical errors may occur. documented in this encounter Plan of Treatment Pending Results Name Type Priority Associated Diagnoses Date /Time FL ERCP Endo Imaging Procedure IP Routine Cholecystitis Elevated liver enzymes Choledocholithiasis with acute cholecystitis 05/12/2021 3:55 PM CDT documented as of this encounter Procedures Procedure Name Priority Date/Time Associated Diagnosis Comments EGFR Routine 05/14/2021 3:28 AM CDT DIFFERENTIAL AUTO Routine 05/14/2021 3:2 8 AM CDT CBC WITH AUTO DIFFERENTIAL Routine 05/14/2021 3:28 AM CDT PHOSPHORUS Routine 05/14/2021 3:28 AM CDT MAGNESIUM Routine 05/14/2021 3:28 AM CDT COMPREHENSIVE METABOLIC PANEL Routine 05/14/2021 3:28 AM CDT PRO B-TYPE NATRIURETIC PEPTIDE Add-On 05/14/2021 3:27 AM CDT XR CHEST 1 VIEW IP Routine 05/13/2021 2:02 PM CDT EGFR STAT 05/13/2021 8:08 AM CDT DIFFERENTIAL AUTO STAT 05/13/2021 8:0 8 AM CDT CBC WITH AUTO DIFFERENTIAL STAT 05/13/2021 8:08 AM CDT PHOSPHORUS Routine 05/13/2021 8:08 AM CDT MAGNESIUM Routine 05/13/2021 8:08 AM CDT BILIRUBIN, DIRECT STAT 05/13/2021 8:0 8 AM CDT COMPREHENSIVE METABOLIC PANEL STAT 05/13/2021 8:08 AM CDT ERCP IP Routine 05/12/2021 4:05 PM CDT ERCP IP Routine 05/12/2021 3:55 PM CDT Cholecystitis Elevated liver enzymes Choledocholithiasis with acute cholecystitis ERCP 05/12/2021 2:37 PM CDT HEPATIC FUNCTION PANEL Routine 4:23 AM CDT SURGICAL PATHOLOGY Routine 05/11/2021 11 :19 AM CDT Cholecystitis CHOLANGIOGRAM INTRAOPERATIVE IP Routine 05/11/2021 9:50 AM CDT LAPAROSCOPIC CHOLECYSTECTOMY 05/11/2021 8:33 AM CDT cholecystis COVID-19 CORONAVIRUS RNA Routine 05/10/2021 1:11 PM CDT URINALYSIS AND REFLEX TO MICROSCOPIC AND CULTURE STAT 05/10/2021 1:[address] ABDOMEN PELVIS W CONTRAST ED 05/10/2021 12:07 PM CDT XR CHEST 1 VIEW ED 05/10/2021 11:28 AM CDT ECG 12-LEAD STAT 05/10/2021 11:19 AM CDT TROPONIN T HIGH-SENSITIVITY SERIES (BASELINE, 2HR, 4HR, 6HR) STAT 05/10/2021 11:16 AM CDT SEPSIS LACTATE WITH REFLEX STAT 05/10/2021 11:16 AM CDT EGFR STAT 05/10/2021 11:16 AM CDT DIFFERENTIAL AUTO STAT 05/10/2021 11: 16 AM CDT CBC WITH AUTO DIFFERENTIAL STAT 05/10/2021 11:16 AM CDT LIPASE STAT 05/10/2021 11:16 AM CDT COMPREHENSIVE METABOLIC PANEL STAT 05/10/2021 11:16 AM CDT documented in this encounter Results * eGFR (05/14/2021 3:28 AM CDT) [facility] eGFR 54 mL/min/1.7 3 m2 [facility] ([place]) Comment: [...] was last reviewed 2020 Blood specimen (specimen) 05/14/2021 3:28 AM CDT 05/14/2021 3:47 AM CDT us Nakia Kirk MD LAB BLOOD ORDERABLES Final Resu lt [facility] ([facility]) 1 [facility] Department [place] [address] * Differential, auto (05/14/2021 3:28 AM CDT) Neutrophil abs 5.1 1.7 - 6.5 K/cumm [facility] ([place]) Imm gran abs 0.0 0.0 - 0.1 K/cumm [facility] ([place]) Lymphocyte abs 2.2 0.8 - 3.3 K/cumm [facility] ([place]) Monocyte abs 0.5 0.2 - 0.8 K/cumm [facility] ([place]) Eosinophil abs 0.2 0.0 - 0.5 K/cumm [facility] ([place]) Basophil abs 0.1 0.0 - 0.1 K/cumm [facility] ([place]) Neutrophil pct 63.4 % [facility] ([place]) Comment: Interpretive [...] was last revised on 2018. Monocyte pct 6.1 % [facility] Comment: Interpretive Data Percent cell count reference ranges are not reported, since discordance with absolute values may lead to misinterpretation of CBC data. Current Interpretive Data was last revised on 2018. Eosinophil pct 2.9 % [facility] ([place]) Comment: Interpretive [...] last revised on 2018. Blood specimen (specimen) 05/14/2021 3:28 AM CDT 05/14/2021 3:47 AM CDT Nakia Kirk MD LAB BLOOD ORDERABLES Final Resu lt [facility] ([place] [place] [address] * Phosphorus (05/14/2021 3:28 AM CDT) Phosphorus, pl 3.5 2.3 - 4.5 mg/dL [facility] ([place]) Blood specimen (specimen) 05/14/2021 3:28 AM CDT 05/14/2021 3:47 AM CDT Nakia Kirk MD LAB BLOOD ORDERABLES Final Resu lt [facility] ([place]) 1 [facility] [place] [address] * Magnesium (05/14/2021 3:28 AM CDT) Magnesium 1.8 1.4 - 2.5 mg/dL [facility] ([facility]) Blood specimen (specimen) 05/14/2021 3:28 AM CDT 05/14/2021 3:47 AM CDT Nakia Kirk MD LAB BLOOD ORDERABLES Final Resu lt [facility] ([facility] Department [place] [address] * (ABNORMAL) Comprehensive metabolic panel (05/14/2021 3:28 AM CDT) Sodium 144 135 - 145 mmol/L [facility] ([place]) Potassium, pl 3.9 3.3 - 4.9 mmol/L [facility]) Chloride 107 97 - 110 mmol/L [facility]) CO2 27 22 - 32 mmol/L [facility]) Anion gap 9 2 - 15 mmol/L [facility]) BUN 6(L) 8 - 25 mg/dL [facility]) Creatinine 1.13(H) 0.60 - 1.10 mg/dL [facility]) Glucose 95 70 - 199 mg/dL [facility] ([place] [...] interpretive data was last revised 2017. Calcium 8.8 8.5 - 10.3 mg/dL [facility]) Bilirubin, total 0.6 0.1 - 1.2 mg/dL [facility] ([place]) Protein, pl 6.3(L) 6.5 - 8.5 g/dL [facility]) Albumin 3.7 3.5 - 5.0 g/dL [facility]) Alk phos 248(H) 40 - 130 Units/L [facility]) ALT 234(H) 7 - 45 Units/L [facility] AST 146(H) 10 - 45 Units/L [facility]) Blood specimen (specimen) 05/14/2021 3:28 AM CDT 05/14/2021 3:47 AM CDT us Nakia Kirk MD LAB BLOOD ORDERABLES Final Resu lt [facility] ([place] Department [place] [address] * (ABNORMAL) CBC with auto differential (05/14/2021 3:28 AM CDT) WBC 8.1 3.8 - 9.9 K/cumm [facility] ([facility]) Hgb 12.7 11.9 - 15.5 g/dL [facility]) Hct 36.8 35.6 - 45.5 % [facility] Plt 187 150 - 400 K/cumm [facility]) MPV 10.6 9.1 - 12.3 fL [facility]) RBC 4.70 3.90 - 5.20 M/cumm [facility]) MCV 78.3(L) 81.3 - 96.4 fL [facility] MCH 27.0(L) 27.1 - 33.3 pg [facility] MCHC 34.5 32.3 - 35.7 g/dL [facility] RDW CV 13.9 11.1 - 14.9 % [facility] RDW SD 39.4 35.7 - 48.1 fL [facility] NRBC abs 0.00 0.00 - 0.01 K/cumm [facility]) Blood specimen (specimen) 05/14/2021 3:28 AM CDT 05/14/2021 3:47 AM CDT us Nakia Kirk MD LAB BLOOD ORDERABLES Final Resu lt [facility] ([place]) 1 [facility] Department [place] [address] * (ABNORMAL) Pro B-type natriuretic peptide (05/14/2021 3:27 AM CDT) NT-proBNP 1,344(H) <=300 pg/mL [facility] ([place]) Comment: Interpretive Comments: A. Dyspnea in Acute Care Setting All Ages: ?< 300 pg/ml, acute heart failure unlikely. < 50 yrs: ?300 - 450 pg/ml, further investigation warranted. ? > 450 pg/ml, acute heart failure likely. 50 - 74 yrs: ? 300 - 900 pg/ml, further investigation warranted. ? > 900 pg/ml, acute heart failure likely . > or = 75 yrs: ? 450 - 1800 pg/ml, further investigation warranted. ? > 1800 pg/ml, acute heart failure likely. B. Non-acute Setting < 75 yrs ? < 125 pg/ml, rules out heart failure. ? > or = 125 pg/ml, further investigation warranted. > or = 75 yrs ?< 450 pg/ml, rules out heart failure. ? > or = 450 pg/ml, further investigation warranted. - Knowledge of each individual patient's NT-proBNP range may be more useful than using similar cut-points for every patient. Please note that marked elevations in NT-proBNP levels may be observed in state other than Left Ventricular Congestive Failure, including: acute coronary syndromes, right heart strain/failure (including pulmonary embolism and cor pulmonale), critical illness, renal failure, as well as advanced age. - References: 1. Mylene VALLEJO et.al. Eur Heart J. 2006:27:330-337. 2. Singh CONTRERAS, Mattie POWELL. J. AM Dorothy Cardiol: Cardiovasc Imag. 2009;2: 216- 225. Interpretive Data Last Revised Date: 2018. Blood specimen (specimen) 05/14/2021 3:27 AM CDT 05/14/2021 8:37 AM CDT us Nakia Kirk MD LAB BLOOD ORDERABLES Final Resu lt [facility] ([place]) 1 [facility] Department of Laboratories [place] [id number] * XR Chest 1 View (05/13/2021 2:02 PM CDT) Anatomical Region Laterality Modality Body, Chest N/A Computed Radiogr aphy 05/13/2021 2:19 PM CDT Narrative 05/13/2021 2:20 PM CDT EXAM DESCRIPTION: ?? XR CHEST 1 VIEW REASON FOR STUDY: ?? Shortness of breathDenies cough, congestion,No known chest conditionsNo hx of surgery to the chestDuration: today TECHNIQUE: ?? Frontal radiographic view of the chest acquired. COMPARISON: ?? 05/10/2021 FINDINGS: The heart, mediastinum, and pulmonary vasculature are grossly stable. ??There are patchy bilateral perihilar and bibasilar airspace opacities. ??There is no definite pleural effusion. ??There is no definite evidence of a pneumothorax. The osseous structures are acutely grossly stable. IMPRESSION: ?? 1. ??Patchy bilateral perihilar and bibasilar airspace opacities, which is concerning for multifocal airspace disease and/or mild pulmonary edema. THIS IS AN ELECTRONICALLY VERIFIED FINAL REPORT 05/13/2021 2:20 PM - Electronically signed by Priscilla Quarles D.O. PS: PS D: ??05/13/2021 2:20 PM T: ??05/13/2021 2:20 PM Report ID: [id number] Reading Location: ??[id number] Procedure Note Robina Priscilla Chapa DO - 05/13/2021 EXAM DESCRIPTION: XR CHEST 1 VIEW REASON FOR STUDY: Shortness of breathDenies cough, congestion,No knownchest conditionsNo hx of surgery to the chestDuration: today TECHNIQUE: Frontal radiographic view of the chest acquired. COMPARISON: 05/10/2021 FINDINGS: The heart, mediastinum, and pulmonary vasculature are grossly stable.There are patchy bilateral perihilar and bibasilar airspace opacities. There isno definite pleural effusion. There is no definite evidence of apneumothorax. The osseous structures are acutely grossly stable. IMPRESSION: 1. Patchy bilateral perihilar and bibasilar airspace opacities, which is concerning for multifocal airspace disease and/or mild pulmonary edema. THIS IS AN ELECTRONICALLY VERIFIED FINAL REPORT 05/13/2021 2:20 PM - Electronically signed by Priscilla Quarles D.O. PS: PS Report ID: [id number] Reading Location: [id number] Nakia Kirk MD IMG XR PROCEDURES Final Result * eGFR (05/13/2021 8:08 AM CDT) eGFR 59 mL/min/1.7 3 m2 [facility] ([place]) Comment: [...] was last reviewed 2020 Blood specimen (specimen) 05/13/2021 8:08 AM CDT 05/13/2021 8:11 AM CDT Nunu Steen MD LAB BLOOD ORDERABLES Final Result Performing Organization Address City/[facility]/ZIP Co de Phone Number [facility] ([place]) 1 [facility] [address] [place] [address] * Bilirubin, direct (05/13/2021 8:08 AM CDT) Bilirubin, direct <0.2 0.1 - 0.3 mg/dL [facility] ([place]) Blood specimen (specimen) 05/13/2021 8:08 AM CDT 05/13/2021 8:11 AM CDT us Nunu Steen MD LAB BLOOD ORDERABLES Final Result [facility] ([place]) 1 [facility] [place] [address] * Differential, auto (05/13/2021 8:08 AM CDT) Neutrophil abs 3.8 1.7 - 6.5 K/cumm [facility] ([place]) Imm gran abs 0.0 0.0 - 0.1 K/cumm [facility] ([place]) Lymphocyte abs 2.4 0.8 - 3.3 K/cumm [facility] ([place]) Monocyte abs 0.4 0.2 - 0.8 K/cumm [facility] ([place]) Eosinophil abs 0.2 0.0 - 0.5 K/cumm [facility] ([place]) Basophil abs 0.0 0.0 - 0.1 K/cumm [facility] ([place]) Neutrophil pct 55.6 % [facility] ([place]) Comment: Interpretive [...] was last revised on 2018. Lymphocyte pct 34.9 % [facility] ([place]) Comment: Interpretive Data Percent cell count reference ranges are not reported, since discordance with absolute values may lead to misinterpretation of CBC data. Current Interpretive Data was last revised on 2018. Monocyte pct 5.4 % [facility] ([place]) Comment: Interpretive Data Percent cell count reference ranges are not reported, since discordance with absolute values may lead to misinterpretation of CBC data. Current Interpretive Data was last revised on 2018. Eosinophil pct 3.5 % [facility] ([place]) Comment: Interpretive Data Percent cell count reference ranges are not reported, since discordance with absolute values may lead to misinterpretation of CBC data. Current Interpretive Data was last revised on 2018. Basophil pct 0.3 % [facility] ([place]) Comment: Interpretive Data Percent cell count reference ranges are not reported, since discordance with absolute values may lead to misinterpretation of CBC data. Current Interpretive Data was last revised on 2018. Blood specimen (specimen) 05/13/2021 8:08 AM CDT 05/13/2021 8:11 AM CDT us Nunu Steen MD LAB BLOOD ORDERABLES Final Result [facility] 1 [facility] [place] [address] * Phosphorus (05/13/2021 8:08 AM CDT) [facility] Phosphorus, pl 3.1 2.3 - 4.5 mg/dL [facility] ([place]) Blood specimen (specimen) 05/13/2021 8:08 AM CDT 05/13/2021 8:20 AM CDT Nakia Kirk MD LAB BLOOD ORDERABLES Final Resu lt [facility] ([place]) 1 [place] [address] * Magnesium (05/13/2021 8:08 AM CDT) [facility] Magnesium 1.8 1.4 - 2.5 mg/dL [facility] ([place]) Blood specimen (specimen) 05/13/2021 8:08 AM CDT 05/13/2021 8:20 AM CDT Nakia Kirk MD LAB BLOOD ORDERABLES Final Resu lt [facility] ([place]) 1 [place] [address] * (ABNORMAL) Comprehensive metabolic panel (05/13/2021 8:08 AM CDT) [facility] Sodium 143 135 - 145 mmol/L [facility] ([place]) Potassium, pl 3.7 3.3 - 4.9 mmol/L [facility] ([place]) Chloride 111(H) 97 - 110 mmol/L [facility] ([place]) CO2 24 22 - 32 mmol/L [facility] ([place]) Anion gap 8 2 - 15 mmol/L [facility] ([place]) BUN 7(L) 8 - 25 mg/dL [facility] ([place]) Creatinine 1.04 0.60 - 1.10 mg/dL [facility] ([place]) Glucose 89 70 - 199 mg/dL [facility] ([place]) [...] interpretive data was last revised 2017. Calcium 7.5(L) 8.5 - 10.3 mg/dL [facility] ([place]) Bilirubin, total 0.4 0.1 - 1.2 mg/dL [facility] ([place]) Protein, pl 5.2(L) 6.5 - 8.5 g/dL [facility] ([place]) Albumin 3.1(L) 3.5 - 5.0 g/dL [facility] ([place]) Alk phos 126 40 - 130 Units/L [facility] ([place]) ALT 126(H) 7 - 45 Units/L [facility] ([place]) AST 43 10 - 45 Units/L [facility] ([place]) Blood specimen (specimen) 05/13/2021 8:08 AM CDT 05/13/2021 8:11 AM CDT us Nunu Steen MD LAB BLOOD ORDERABLES Final Result [facility] ([place] 1 [facility] [place] [address] * (ABNORMAL) CBC with auto differential (05/13/2021 8:08 AM CDT) WBC 6.8 3.8 - 9.9 K/cumm [facility] ([place]) Hgb 11.3(L) 11.9 - 15.5 g/dL [facility] ([place]) Hct 32.2(L) 35.6 - 45.5 % [facility] ([place]) Plt 151 150 - 400 K/cumm [facility] ([place]) MPV 9.9 9.1 - 12.3 fL [facility] ([place]) RBC 4.10 3.90 - 5.20 M/cumm [facility] ([place]) MCV 78.5(L) 81.3 - 96.4 fL [facility] ([place]) MCH 27.6 27.1 - 33.3 pg [facility] ([place]) MCHC 35.1 32.3 - 35.7 g/dL [facility] ([place]) RDW CV 14.3 11.1 - 14.9 % [facility]) RDW SD 40.9 35.7 - 48.1 fL [facility] ([place]) NRBC abs 0.00 0.00 - 0.01 K/cumm [facility] ([place]) Blood specimen (specimen) 05/13/2021 8:08 AM CDT 05/13/2021 8:11 AM CDT us Nunu Steen MD LAB BLOOD ORDERABLES Final Result [facility] ([place]) 1 [facility] Department of Laboratories [place] [id number] * FL ERCP (05/12/2021 4:05 PM CDT) Anatomical Region Laterality Modality Body N/A Radio Fluoroscop y 05/12/2021 6:12 PM CDT Narrative 05/12/2021 6:17 PM CDT EXAM DESCRIPTION: ?? FL ERCP REASON FOR STUDY: ??Painless jaundice. ??Weight loss. ??Symptoms for greater than 3 months. ??Abnormal gallbladder on CT 05/10/2021. COMPARISON: ?? Intraoperative cholangiogram 05/11/[address] abdomen 05/10/2021 FLUOROSCOPY TIME/IMAGE COUNT: ??Fluoro Time: ??Flouro Time: 229.6 sec. ??MGY: 41.28Flouro Images: 11 Image Count: ??11 fluoroscopic spot films were obtained during the ERCP procedure TECHNIQUE: ??11 fluoroscopic spot films were recorded during ERCP procedure performed by the attending endoscopist. FINDINGS: Injection of contrast in the common bile duct demonstrates normal caliber common hepatic and common bile ducts. ??No intraductal filling defect is identified. ??Small amount of contrast refluxes into the central left and right intrahepatic ducts, normal in caliber. ??Common bile duct balloon sweep was performed. ??Final image demonstrates partial drainage of contrast from the intra and extrahepatic ducts, normal in caliber. IMPRESSION: ?? No intraductal filling defect is identified. ??No evidence of biliary stricture or dilatation. ??Images demonstrate balloon sweep of the common bile duct. THIS IS AN ELECTRONICALLY VERIFIED FINAL REPORT 05/12/2021 6:17 PM - Electronically signed by John John M.D. DL: HENRI D: ??05/12/2021 6:17 PM T: ??05/12/2021 6:17 PM Report ID: [id number] Reading Location: ??[id number] Procedure Note John John MD - 05/12/2021 EXAM DESCRIPTION: FL ERCP REASON FOR STUDY: Painless jaundice. Weight loss. Symptoms for greaterthan 3 months. Abnormal gallbladder on CT 05/10/2021. COMPARISON: Intraoperative cholangiogram 05/11/[address] [id number]/[id number]/2021 FLUOROSCOPY TIME/IMAGE COUNT: Fluoro Time: Flouro Time: 229.6 sec. MGY: 41.28Flouro Images: 11 Image Count: 11 fluoroscopic spot films were obtained during the ERCP procedure TECHNIQUE: 11 fluoroscopic spot films were recorded during ERCP procedure performed by the attending endoscopist. FINDINGS: Injection of contrast in the common bile duct demonstrates normal caliber common hepatic and common bile ducts. No intraductal filling defect is identified. Small amount of contrast refluxes into the central left andright intrahepatic ducts, normal in caliber. Common bile duct balloon sweep was performed. Final image demonstrates partial drainage of contrast from the intra and extrahepatic ducts, normal in caliber. IMPRESSION: No intraductal filling defect is identified. No evidence of biliary stricture or dilatation. Images demonstrate balloon sweep of the common bile duct. THIS IS AN ELECTRONICALLY VERIFIED FINAL REPORT 05/12/2021 6:17 PM - Electronically signed by John SerranoD. DL: HENRI Report ID: [id number] Reading Location: [id number] us Nunu Steen MD IMG FLUOROSCOPY PROCEDURES Final Result * ERCP (05/12/2021 2:37 PM CDT) Anatomical Region Laterality Modality Other Narrative Procedure Note Nunu Steen MD - 05/12/2021 2:37 PM CDT [facility] Patient Name: Kashmir Arguello Procedure Date: 05/12/2021 2:37 PM Date of : 1960 Admit Type: Inpatient Age: 60 Gender: Female Attending MD: Nunu Steen M.D. Room: [place] [address] Note Status: Finalized Patient Profile: This is a 60 year old female. Patient admitted with cholecystitis and gallstones and CT showed possible stone in the common bile duct. Liver enzymes were normal. After cholecystectomy liver enzymesincreased. ERCP today to rule out common bile duct retainedstone Procedure: ERCP Indications: Bile duct stone(s), Elevated liver enzymes Referring MD: Providers: Nunu Steen M.D. Impression: - Normal upper GI tract. - possible mild papillary stenosis. - The cholangiogram was normal. No filling defects noted. - A biliary sphincterotomy was performed. Recommendation: - Continue present medications. - NPO for next 24 hours. IV fluids. Re-evaluate tomorrow Medicines: General Anesthesia Complications: No immediate complications. Estimated Blood Loss: [...] has taken no previous anticoagulant or antiplatelet agents. ASA Grade Assessment: III - A patient with severe systemic disease. After reviewing the risks and benefits,the patient was deemed in satisfactory condition to undergo the procedure. The benefits, risks, and alternatives to theprocedure and sedation were discussed and informed consentwas obtained. The Endoscope ERCP [id number] introduced through the mouth, and used to inject contrast into and used to inject contrast into the bile duct. The ERCP was accomplished without difficulty. The patient tolerated the procedurewell. Findings: The beef specialist film was normal. A standard esophagogastroduodenoscopyscope was used for the examination of the upper gastrointestinal tract. The scope was passed under direct vision through the upper GI tract. The upper GI tract was normal. The ERCP scope introduced. The majorpapilla was small which may indicate papillary stenosis. No bile flow noted.The bile duct was deeply cannulated with the short-nosed traction sphincterotome. Contrast was injected. Opacification of the entire biliary tree was successful. The intra-hepatic and extra-hepaticbiliary duct system was normal. No filling defects noted. A 7 mm biliary sphincterotomy was made with a short nose sphincterotome usingblended current. There was no post-sphincterotomy bleeding. The biliary treewas swept with a 10 mm balloon starting at the upper third of the mainbile duct. Nothing was found. Pancreatic duct was not cannulated Electronically signed by Nunu Steen M.D. Nunu Steen M.D. 05/14/2021 3:07:53 PM Number of Addenda: 0 Note Initiated On: 05/12/2021 2:37 PM Procedure Code(s): --- Professional --- 62601, Endoscopic retrograde cholangiopancreatography (ERCP); with sphincterotomy/papillotomy Diagnosis Code(s): --- Professional --- K80.50, Calculus of bile duct without cholangitis or cholecystitis without obstruction R74.8, Abnormal levels of other serum enzymes CPT copyright 2019 [employer]. All rights reserved. The codes documented in this report are preliminary and upon community services manager reviewmay be revised to meet current compliance requirements. Recognized by the [employer] [employer] for promoting quality in endoscopy Nunu Steen MD ENDOSCOPY PROCEDURES Final Result * (ABNORMAL) Hepatic function panel (05/12/2021 4:23 AM CDT) Bilirubin, total 0.4 0.1 - 1.2 mg/dL [facility] ([place]) Bilirubin, direct <0.2 0.1 - 0.3 mg/dL [facility] ([place]) Protein, pl 5.6(L) 6.5 - 8.5 g/dL [facility] ([place]) Albumin 3.2(L) 3.5 - 5.0 g/dL [facility] ([place]) Alk phos 151(H) 40 - 130 Units/L [facility] ([place]) ALT 197(H) 7 - 45 Units/L [facility]) AST 135(H) 10 - 45 Units/L [facility] ([place]) Blood specimen (specimen) 05/12/2021 4:23 AM CDT 05/12/2021 5:48 AM CDT Jess Moss MD LAB BLOOD ORDERDirk ROMO Final Result [facility] 1 [facility] [place] [address] * Surgical pathology (05/11/2021 11:19 AM CDT) Tissue (Gallbladder) 05/11/2021 9:36 AM CDT Narrative [facility]OLOGY [facility] ([place]) - 05/13/2021 11:42 AM CDT EPIC results best viewed via link to PDF [facility] Department of Pathology [address] [place] [id number] Final Report Patient Name: ??KASHMIR ARGUELLODarell Address: ??[address] [place] [address], ??[place], [place] ??[address] Gender: ??F : ??1960 (Age: 60) Service: ??Medical Location: ??[facility] Hospital #: ??[id number] Patient Type: ??[facility] Accession # ?[id number] Taken: ??05/11/2021 Received: ??05/12/2021 Accessioned: ??05/12/2021 Reported: ??05/13/2021 Physician(s):Jess Moss MD Diagnosis: Gallbladder, laparoscopic cholecystectomy: ? - Chronic cholecystitis. ? - Cholelithiasis. ? - One benign lymph node. Bryon Kasper MD Report Electronically Reviewed and Signed Out By ??Bryon Kasper MD ??05/13/2021 11:42:32 Specimen(s) Received: A: Gallbladder Microscopic Description: Microscopic examination of the gallbladder specimen shows scant chronic inflammation, focal Rokitansky-Aschoff sinus formation, and thickening of the gallbladder wall due to muscular hypertrophy. ??One benign lymph node is also seen. ??There is no evidence of malignancy. Clinical History: Cholecystitis. ??Laparoscopic cholecystectomy with cholangiogram. ?? Gross Description: The specimen is received in a single container labeled [place] L. [place] and gallbladder . ??It is a gallbladder that measures 9 x 3.5 cm. ??The serosa is pink-barahona and smooth. ??The wall measures up to 0.2 cm in thickness. ??The lumen contains green-brown bile and multiple granular stones measuring up to 9 mm. ??The mucosa is green and velvety. ??Represented in one cassette. ??Parris Gonzalez M.D./Romulo Bynum REPORT IMAGES AND SCANNED DOCUMENTS, IF INCLUDED, ONLY VIEWABLE IN PDF VERSION OF REPORT The performance characteristics of some immunohistochemical stains, fluorescence in-situ hybridization tests and immunophenotyping by flow cytometry cited in this report (if any) were determined by the Surgical Pathology Department at [facility] as part of an ongoing quality system manager program and in compliance with federally mandated [...] characteristics determined by the Surgical Pathology Department [facility]. ??It has not been cleared or approved by the U. S. Food and Drug Administration. Jess Moss MD LAB PATHOLOGY OR DERABLES Final Result PATHOLOGY [facility] 1 [place] [address] * FL Cholangiogram Intraoperative (05/11/2021 9:50 AM CDT) Anatomical Region Laterality Modality Body, Abdomen N/A Radio Fluoroscop y 05/12/2021 6:17 PM CDT Narrative 05/12/2021 6:20 PM CDT EXAM DESCRIPTION: ?? FL CHOLANGIOGRAM INTRAOPERATIVE REASON FOR STUDY: ??Cholecystitis on CT 05/10/2021. ??Cholecystectomy. COMPARISON: ?? CT abdomen 05/10/2021 FLUOROSCOPY TIME/IMAGE COUNT: ??Fluoro Time: ??Flouro Time: 34.1 secFlouro Images: 2 Image Count: ??2 intraoperative fluoroscopic spot films were obtained during the intraoperative cholangiogram performed by the attending surgeon TECHNIQUE: ??Fluoro spot images were obtained in the OR from an intraoperative cholangiogram and saved to PACS. ??15 mL Omnipaque 240 was utilized during the procedure. FINDINGS: Intraoperative fluoroscopic spot films during intraoperative cholangiogram demonstrate contrast within the common bile duct, draining into the duodenum. ?? No stricture or ductal dilatation is identified. ??No definite intraductal filling defect. ??No reflux of contrast into the common hepatic duct or intrahepatic ducts. IMPRESSION: ?? Normal caliber common bile duct. ??No intraductal filling defect or stricture is identified. ??Flow of contrast into the duodenum. THIS IS AN ELECTRONICALLY VERIFIED FINAL REPORT 05/12/2021 6:20 PM - Electronically signed by John John M.D. DL: DL D: ??05/12/2021 6:20 PM T: ??05/12/2021 6:20 PM Report ID: [id number] Reading Location: ??[id number] Procedure Note John John MD - 05/12/2021 EXAM DESCRIPTION: FL CHOLANGIOGRAM INTRAOPERATIVE REASON FOR STUDY: Cholecystitis on CT 05/10/2021. Cholecystectomy. COMPARISON: CT abdomen 05/10/2021 FLUOROSCOPY TIME/IMAGE COUNT: Fluoro Time: Flouro Time: 34.1 secFlouro Images: 2 Image Count: 2 intraoperative fluoroscopic spot films were obtainedduring the intraoperative cholangiogram performed by the attending surgeon TECHNIQUE: Fluoro spot images were obtained in the OR from anintraoperative cholangiogram and saved to PACS. 15 mL Omnipaque 240 was utilized duringthe procedure. FINDINGS: Intraoperative fluoroscopic spot films during intraoperativecholangiogram demonstrate contrast within the common bile duct, draining into theduodenum. No stricture or ductal dilatation is identified. No definite intraductal filling defect. No reflux of contrast into the common hepatic duct or intrahepatic ducts. IMPRESSION: Normal caliber common bile duct. No intraductal fillingdefect or stricture is identified. Flow of contrast into the duodenum. THIS IS AN ELECTRONICALLY VERIFIED FINAL REPORT 05/12/2021 6:20 PM - Electronically signed by John John M.D. DL: DL Report ID: [id number] Reading Location: [place] [address] us Jess Moss MD IMG FLUOROSCOPY PROCEDURES Final Result * COVID-19 Coronavirus RNA Nasopharyngeal (05/10/2021 1:11 PM CDT) COVID-19 RNA Negative Negative [facility] Comment: Interpretive data: Synonyms for this test include: PCR and NAAT . ??This test is performed using the [employer] Xpert Xpress assay. This is a real-time RT-PCR test intended for the qualitative detection of nucleic acid from the SARS-CoV-2. This assay has been reviewed by the FDA for Emergency Use Authorization (EUA). The performance characteristics have been verified by the performing laboratory. Results must be considered in the clinical context and a negative result does not rule out infection. Interpretive data last revised December 11, 2020. First COVID-19 test? No [facility] Employeed in healthcare? Unknown [facility]) status? No [facility] ([place]) Group care resident? Unknown [facility] Hospitalized? Unknown [facility] Is patient in ICU? Unknown [facility] ([place]) Symptomatic as defined by CDC? No [facility]) Nasopharyngeal 05/10/2021 1: 11 PM CDT 05/10/2021 1:18 PM CDT Narrative [facility] ([place]) - 05/10/2021 2:10 PM CDT What is the reason for testing?->Screening prior to urgent surgery, procedure, BMT, immunosuppressive therapy us Bindu Landers MD LAB MICROBIOLOGY - GENER AL ORDERABLES Final Result Performing Organization Address City/[facility]/ZIP Co de Phone Number [facility] ([place]) 1 [facility] [place] [address] * (ABNORMAL) Urinalysis reflex to microscopic and culture Urine (05/10/2021 1:11 PM CDT) Color, ur Yellow Yellow [facility]) Clarity, ur Clear Clear [facility] ([place]) Specific gravity, ur OVER 1.010 - 1.025 [facility]) pH, urine 5.5 [facility]) Protein, ur ql Trace [...] culture not met. [facility]) Urine 05/10/2021 1:11 PM CDT 05/10/2021 1:18 PM CDT Narrative [facility] - 05/10/2021 1:30 PM CDT ?? Urine pH is affected by diet, medications, systemic acid-base disturbances, and renal tubular function. ??pH may affect urinary stone formation. ??For example, urine pH below 6.0 may help reduce the tendency for calcium phosphate stones and pH greater than 6.0 may reduce the tendency for uric acid stone formation. Source: [employer]. Last revised 11-17-2017 us Reji CLIFFORD LAB MICROBIOLOGY - GENERAL O RDERABLES Final Result [facility] 1 [facility] [place] [address] * CT Abdomen Pelvis W Contrast (05/10/2021 12:07 PM CDT) Anatomical Region Laterality Modality Body N/A Computed Tomogra phy 05/10/2021 12:1 2 PM CDT Narrative 05/10/2021 12:22 PM CDT EXAM DESCRIPTION: ?? CT ABDOMEN PELVIS W CONTRAST REASON FOR STUDY: ?? h/o cholelithiasis and biliary colic presents for epigastric and right upper quadrant pain that radiates to the back. ??It started this morning after having her coffee. ??She did not have any breakfast this morning. ??No clear inciting factor. ??Made worse with movements. ??Has been constant. ??No relieving factor. ??Has not taken any medications. ??Feels similar to previous episodeDuration: this am TECHNIQUE: ??CT scan of the abdomen and pelvis performed with intravenous and ?? without oral contrast using helical scanning technique with dynamic intravenous contrast injection. Reconstructed coronal and sagittal MPR images reviewed. All images stored on PACS. Automated exposure control was used as a dose optimization technique for this examination. CONTRAST TYPE/DOSE: ?? 100ml of 350 ??optiray injected via ??rt ac 20g COMPARISON: ?? Right upper quadrant ultrasound 03/26/2021 FINDINGS: LOWER CHEST: ??Dependent atelectasis in basilar ground-glass opacities. LIVER: ??Heterogeneous liver parenchyma with mild diffuse hepatic steatosis but no visualized mass or cyst. GALLBLADDER: ??Cholelithiasis with mild gallbladder wall thickening. BILE DUCTS: ??Common bile duct is dilated, measuring up to 8 mm in diameter. ?? There is a probable filling defect in the distal common duct axial image 56 measuring up to 4 mm in diameter. ??This likely reflects choledocholithiasis. SPLEEN: ??Normal size. ??No focal lesions. PANCREAS: ??No identified cystic or solid masses. No significant calcifications. No adjacent inflammation or peripancreatic fluid collections. Pancreatic duct not dilated. ADRENALS: ??Normal. KIDNEYS/URINARY TRACT: ??No identified significant cystic or solid masses. No visualized stones. No hydronephrosis or hydroureter. Symmetric enhancement. ?? Urinary bladder is unremarkable. GI: ??No dilated loops of bowel to indicate obstruction. ??No evidence for appendicitis. ??Circumferential rectal wall thickening. PERITONEUM: ??No ascites or free air. RETROPERITONEUM: ??No mass or adenopathy. REPRODUCTIVE: ??Enlarged, fibroid replaced uterus. ??6.9 cm mass right pelvis likely a pedunculated fibroid. VASCULATURE: ??No abdominal aortic aneurysm. MUSCULOSKELETAL: ??No significant abnormality. OTHER: ??No other abnormality. IMPRESSION: ?? 1. ??Cholelithiasis with mild gallbladder wall thickening. ??Mild biliary ductal dilatation with probable filling defect in the distal duct concerning for choledocholithiasis. ??Follow-up MRCP recommended to further evaluate. 2. ??Mild diffuse hepatic steatosis 3. ??Circumferential lower rectal wall thickening, correlate with digital rectal exam and colonoscopy if one has not been performed recently 4. ??Enlarged, fibroid replaced uterus 5. ??6.9 cm mass right pelvis-pedunculated fibroid favored over a adnexal mass but this could be confirmed with nonemergent pelvic ultrasound or MR. THIS IS AN ELECTRONICALLY VERIFIED FINAL REPORT 05/10/2021 12:22 PM - Electronically signed by Angle Castro M.D. : D: ??05/10/2021 12:22 PM T: ??05/10/2021 12:22 PM Report ID: [id number] Reading Location: ??[id number] Procedure Note Angle Castro MD - 05/10/2021 EXAM DESCRIPTION: CT ABDOMEN PELVIS W CONTRAST REASON FOR STUDY: h/o cholelithiasis and biliary colic presents for epigastric and right upper quadrant pain that radiates to the back. It started this morning after having her coffee. She did not have anybreakfast this morning. No clear inciting factor. Made worse with movements. Hasbeen constant. No relieving factor. Has not taken any medications. Feelssimilar to previous episodeDuration: this am TECHNIQUE: CT scan of the abdomen and pelvis performed with intravenousand without oral contrast using helical scanning technique with dynamic intravenous contrast injection. Reconstructed coronal and sagittal MPRimages reviewed. All images stored on PACS. Automated exposure control was used as a dose optimization technique forthis examination. CONTRAST TYPE/DOSE: 100ml of 350 optiray injected via rt ac 20g COMPARISON: Right upper quadrant ultrasound 03/26/2021 FINDINGS: LOWER CHEST: Dependent atelectasis in basilar ground-glass opacities. LIVER: Heterogeneous liver parenchyma with mild diffuse hepatic steatosisbut no visualized mass or cyst. GALLBLADDER: Cholelithiasis with mild gallbladder wall thickening. BILE DUCTS: Common bile duct is dilated, measuring up to 8 mm indiameter. There is a probable filling defect in the distal common duct axial image56 measuring up to 4 mm in diameter. This likely reflectscholedocholithiasis. SPLEEN: Normal size. No focal lesions. PANCREAS: No identified cystic or solid masses. No significant calcifications. No adjacent inflammation or peripancreatic fluidcollections. Pancreatic duct not dilated. ADRENALS: Normal. KIDNEYS/URINARY TRACT: No identified significant cystic or solid masses.No visualized stones. No hydronephrosis or hydroureter. Symmetricenhancement. Urinary bladder is unremarkable. GI: No dilated loops of bowel to indicate obstruction. No evidence for appendicitis. Circumferential rectal wall thickening. PERITONEUM: No ascites or free air. RETROPERITONEUM: No mass or adenopathy. REPRODUCTIVE: Enlarged, fibroid replaced uterus. 6.9 cm mass rightpelvis likely a pedunculated fibroid. VASCULATURE: No abdominal aortic aneurysm. MUSCULOSKELETAL: No significant abnormality. OTHER: No other abnormality. IMPRESSION: 1. Cholelithiasis with mild gallbladder wall thickening. Mild biliaryductal dilatation with probable filling defect in the distal duct concerning for choledocholithiasis. Follow-up MRCP recommended to further evaluate. 2. Mild diffuse hepatic steatosis 3. Circumferential lower rectal wall thickening, correlate with digital rectal exam and colonoscopy if one has not been performed recently 4. Enlarged, fibroid replaced uterus 5. 6.9 cm mass right pelvis-pedunculated fibroid favored over a adnexalmass but this could be confirmed with nonemergent pelvic ultrasound or MR. THIS IS AN ELECTRONICALLY VERIFIED FINAL REPORT 05/10/2021 12:22 PM - Electronically signed by Angle Castro M.D. : Report ID: [id number] Reading Location: [place] [address] us Bindu Landers MD IMG CT PROCEDURES Final Result * XR Chest 1 Vw Portable (05/10/2021 11:28 AM CDT) Anatomical Region Laterality Modality Body, Chest N/A Computed Radiogr aphy 05/10/2021 11:5 8 AM CDT Narrative 05/10/2021 11:58 AM CDT EXAM DESCRIPTION: ?? XR CHEST 1 VIEW REASON FOR STUDY: ?? C/O substernal pain she reports radiates to her back. Pt awake and alert, states that she is also having pain below that area and to her RUQ. Pt states its my gallbladder reporting that she has a history of gallbladder problems. Pt reports nausea, denies constipation, denies diarrhea.Duration: today TECHNIQUE: ?? Frontal radiographic view of the chest acquired. COMPARISON: ?? 07/05/2021 FINDINGS: The heart, mediastinum, and pulmonary vasculature are grossly stable. ??There is no definite evidence of a pneumothorax. ??The lungs are mildly hyperinflated. ??There are mild patchy bibasilar airspace opacities. ??There is no definite evidence of pleural effusion. There is a minimal levoscoliotic curvature of the spine with mild degenerative changes. IMPRESSION: ?? 1. ??Mild patchy bibasilar airspace opacities, which is likely related to subsegmental atelectasis/scarring and less likely developing airspace disease. THIS IS AN ELECTRONICALLY VERIFIED FINAL REPORT 05/10/2021 11:58 AM - Electronically signed by Priscilla Quarles D.O. PS: PS D: ??05/10/2021 11:58 AM T: ??05/10/2021 11:58 AM Report ID: [id number] Reading Location: ??[id number] Procedure Note Priscilla Quarles DO - 05/10/2021 EXAM DESCRIPTION: XR CHEST 1 VIEW REASON FOR STUDY: C/O substernal pain she reports radiates to her back.Pt awake and alert, states that she is also having pain below that area andto her RUQ. Pt states its my gallbladder reporting that she has a historyof gallbladder problems. Pt reports nausea, denies constipation, denies diarrhea.Duration: today TECHNIQUE: Frontal radiographic view of the chest acquired. COMPARISON: 07/05/2021 FINDINGS: The heart, mediastinum, and pulmonary vasculature are grossly stable.There is no definite evidence of a pneumothorax. The lungs are mildly hyperinflated. There are mild patchy bibasilar airspace opacities. Thereis no definite evidence of pleural effusion. There is a minimal levoscoliotic curvature of the spine with milddegenerative changes. IMPRESSION: 1. Mild patchy bibasilar airspace opacities, which is likely related to subsegmental atelectasis/scarring and less likely developing airspacedisease. THIS IS AN ELECTRONICALLY VERIFIED FINAL REPORT 05/10/2021 11:58 AM - Electronically signed by Priscilla Quarles D.O. PS: PS Report ID: [id number] Reading Location: [place] [address] Reji [facility] IMG XR PROCEDURES Final Resu lt * ECG 12 lead (05/10/2021 11:19 AM CDT) 05/10/2021 11:1 9 AM CDT Narrative [facility] - 05/12/2021 8:08 AM CDT Vent Rate: 58 bpm RR Interval: 1034 msec VA Interval: 178 msec QRS Duration: 87 msec QT Interval: 425 msec QTC Interval: 421 msec P-R-T [place]: 37 - 72 - 31 degrees SINUS BRADYCARDIA BORDERLINE ECG Electronically Signed By: Dr Stepan Zarco [facility] ECG ORDERABLES Final Result [facility] * eGFR (05/10/2021 11:16 AM CDT) eGFR 56 mL/min/1.7 3 m2 [facility] Comment: [...] was last reviewed 2020 Blood specimen (specimen) 05/10/2021 11:16 AM CDT 05/10/2021 11:26 AM CDT us Re[facility] LAB BLOOD ORDERABLES Final R esult [facility] 1 [facility] Department of Laboratories [place], [place] [id number] * (ABNORMAL) Differential, auto (05/10/2021 11:16 AM CDT) Neutrophil abs 5.6 1.7 - 6.5 K/cumm [facility]) Imm gran abs 0.0 0.0 - 0.1 K/cumm [facility]) Lymphocyte abs 2.9 0.8 - 3.3 K/cumm [facility]) Monocyte abs 0.6 0.2 - 0.8 K/cumm [facility]) Eosinophil abs 0.6(H) 0.0 - 0.5 K/cumm [facility]) Basophil abs 0.1 0.0 - 0.1 K/cumm [facility]) Neutrophil pct 57.4 % [facility] Comment: Interpretive Data Percent cell count reference ranges are not reported, since discordance with absolute values may lead to misinterpretation of CBC data. Current Interpretive Data was last revised on 2018. Imm gran pct 0.3 % [facility] Comment: Interpretive Data Percent cell count reference ranges are not reported, since discordance with absolute values may lead to misinterpretation of CBC data. Current Interpretive Data was last revised on 2018. Lymphocyte pct 29.9 % [facility] Comment: Interpretive Data Percent cell count reference ranges are not reported, since discordance with absolute values may lead to misinterpretation of CBC data. Current Interpretive Data was last revised on 2018. Monocyte pct 5.7 % [facility] Comment: Interpretive Data Percent cell count reference ranges are not reported, since discordance with absolute values may lead to misinterpretation of CBC data. Current Interpretive Data was last revised on 2018. Eosinophil pct 6.1 % [facility] ([place]) Comment: Interpretive Data Percent cell count reference ranges are not reported, since discordance with absolute values may lead to misinterpretation of CBC data. Current Interpretive Data was last revised on 2018. Basophil pct 0.6 % [facility] Comment: Interpretive Data Percent cell count reference ranges are not reported, since discordance with absolute values may lead to misinterpretation of CBC data. Current Interpretive Data was last revised on 2018. Blood specimen (specimen) 05/10/2021 11:16 AM CDT 05/10/2021 11:26 AM CDT us [facility] LAB BLOOD ORDERABLES Final R esult [facility] 1 [facility] Department of Laboratories [place], [place] [id number] * Troponin T high-sensitivity series (baseline, 2hr, 4hr, 6hr) (05/10/2021 11:16 AM CDT) Trop T hs 7 <=14 ng/L [facility] Comment: Interpretive Data For further hscTnT resources including the diagnostic algorithm and an aid in interpretation, copy and paste this link: https://nrl.testcatalog.org/show/hsTrop Current Interpretive Data last revised 2020. Blood specimen (specimen) 05/10/2021 11:16 AM CDT 05/10/2021 11:26 AM CDT [facility] LAB BLOOD ORDERABLES Final R esult Performing Organization Address City/[facility]/ZIP Co de Phone Number [facility] ([place]) [address] [place] [address] * Sepsis Lactate w/ Reflex (05/10/2021 11:16 AM CDT) Sepsis Lactate 0.9 0.7 - 2.0 mmol/L [facility]) Blood specimen (specimen) 05/10/2021 11:16 AM CDT 05/10/2021 11:26 AM CDT [facility] LAB BLOOD ORDERABLES Final R esult Performing Organization Address [facility] Co de Phone Number [facility] [address] [place] [address] * Lipase (05/10/2021 11:16 AM CDT) Lipase 20 10 - 99 Units/L [facility]) Blood specimen (specimen) 05/10/2021 11:16 AM CDT 05/10/2021 11:26 AM CDT [facility] LAB BLOOD ORDERABLES Final R esult Performing Organization Address City/[facility] Co de Phone Number [facility] ([place]) 1 [facility] [place] [address] * Comprehensive metabolic panel (05/10/2021 11:16 AM CDT) Sodium 139 135 - 145 mmol/L [facility]) Potassium, pl 3.8 3.3 - 4.9 mmol/L [facility]) Chloride 105 97 - 110 mmol/L [facility]) CO2 23 22 - 32 mmol/L [facility] Anion gap 10 2 - 15 mmol/L [facility]) BUN 21 8 - 25 mg/dL [facility]) Creatinine 1.09 0.60 - 1.10 mg/dL [facility]) Glucose 98 70 - 199 mg/dL [facility] [...] interpretive data was last revised 2017. Calcium 8.7 8.5 - 10.3 mg/dL [facility]) Bilirubin, total 0.4 0.1 - 1.2 mg/dL [facility]) Protein, pl 6.6 6.5 - 8.5 g/dL [facility]) Albumin 3.8 3.5 - 5.0 g/dL [facility] Alk phos 110 40 - 130 Units/L [facility]) ALT 27 7 - 45 Units/L [facility] AST 42 10 - 45 Units/L [facility]) Blood specimen (specimen) 05/10/2021 11:16 AM CDT 05/10/2021 11:26 AM CDT us [facility] LAB BLOOD ORDERABLES Final R esult [facility] ([place] 1 [facility] Department [place] [address] * (ABNORMAL) CBC with auto differential (05/10/2021 11:16 AM CDT) WBC 9.7 3.8 - 9.9 K/cumm [facility]) Hgb 13.8 11.9 - 15.5 g/dL [facility] Hct 39.9 35.6 - 45.5 % [facility] Plt 223 150 - 400 K/cumm [facility] MPV 10.4 9.1 - 12.3 fL [facility] RBC 5.09 3.90 - 5.20 M/cumm [facility] MCV 78.4(L) 81.3 - 96.4 fL [facility] MCH 27.1 27.1 - 33.3 pg [facility] MCHC 34.6 32.3 - 35.7 g/dL [facility] RDW CV 13.9 11.1 - 14.9 % [facility] RDW SD 39.8 35.7 - 48.1 fL [facility] NRBC abs 0.00 0.00 - 0.01 K/cumm [facility]) Blood specimen (specimen) 05/10/2021 11:16 AM CDT 05/10/2021 11:26 AM CDT [facility] BLOOD ORDERABLES Final R esult [facility] 1 [facility] [place] [address] documented in this encounter Visit Diagnoses Diagnosis Cholecystitis- Primary Cholecystitis, unspecified Cholecystitis Cholecystitis, unspecified Uterine leiomyoma, unspecified location Elevated liver enzymes Other nonspecific abnormal serum enzyme levels Choledocholithiasis with acute cholecystitis Calculus of bile duct with acute cholecystitis without mention of obstruction Lumbar radiculopathy Thoracic or lumbosacral neuritis or radiculitis, unspecified Menopause present Anxiety Anxiety state, unspecified Abnormality of rectum Elevated liver enzymes Other nonspecific abnormal serum enzyme levels Choledocholithiasis with acute cholecystitis Calculus of bile duct with acute cholecystitis without mention of obstruction Uterine leiomyoma Leiomyoma of uterus, unspecified documented in this encounter Admitting Diagnoses Diagnosis Cholecystitis Cholecystitis, unspecified Elevated liver enzymes Other nonspecific abnormal serum enzyme levels Choledocholithiasis with acute cholecystitis Calculus of bile duct with acute cholecystitis without mention of obstruction documented in this encounter Administered Medications Inactive Administered Medications - up to 3 most recent administrations Medication Order MAR Action Action Date Dose Rate Site cloNIDine (CATAPRES) tablet 0.3 mg 0.3 mg, oral, Daily, First dose on Tue05/11/21 at 0815 Given 05/13/2021 7:50 PM CDT 0.3 mg Given 05/12/2021 10:31 PM CDT 0.3 mg Given 05/11/2021 8:58 PM CDT 0.3 mg enoxaparin (LOVENOX) syringe 40 mg 40 mg, subcutaneous, Daily (for enoxaparin), First dose on Tue05/10/21 at 2100, Indications: Deep Vein Thrombosis PreventionIndications:Deep Vein Thrombosis Prevention Given 05/13/2021 7:48 PM CDT 40 mg Left Lower Abdomen Given 05/12/2021 10:32 PM CDT 40 mg L eft Lower Abdomen Given 05/11/2021 8:59 PM CDT 40 mg Le ft Lower Abdomen famotidine (PEPCID) injection 20 mg 20 mg, intravenous, Administer over 2 Minutes, 2 times daily, First dose on Tue05/12/21 at 2100 Given 05/14/2021 7:57 AM CDT 20 mg Given 05/13/2021 7:48 PM CDT 20 mg Given 05/13/2021 8:17 AM CDT 20 mg famotidine (PEPCID) injection 40 mg 40 mg, intravenous, Administer over 2 Minutes, Once, On Tue05/10/21 at 1146, For 1 dose Given 05/10/2021 11:48 AM CDT 40 mg famotidine (PEPCID) tablet 20 mg 20 mg, oral, Daily, First dose on Tue05/15/21 at 0900, This medication, famotidine, was changed from IV route to oral route per protocol. Dose of famotidine adjusted per renal protocol for CrCl=<50 ml/min (CrCl=48.8 ml/min) fluticasone propionate (FLONASE) 50 mcg/actuation nasal spray 2 spray 2 spray, each nostril, Daily, First dose on Tue05/11/21 at 0900 Given 05/14/2021 8:50 AM CDT 2 sprays furosemide (LASIX) tablet 20 mg 20 mg, oral, Once, On Ailyn 05/14/21 at 1000, For 1 dose Given 05/14/2021 9:32 AM CDT 20 mg gabapentin (NEURONTIN) capsule 300 mg 300 mg, oral, Nightly, First dose on Tue05/10/21 at 2100, Do not crush, break, or open. Given 05/13/2021 7:48 PM CDT 300 mg Given 05/12/2021 10:29 PM CDT 300 mg Given 05/11/2021 8:58 PM CDT 300 mg hydrALAZINE (APRESOLINE) tablet 25 mg 25 mg, oral, 3 times daily, First dose on Tue05/13/21 at 1300, Indications: hypertensionIndications:hypertension Given 05/14/2021 3:52 PM CDT 25 mg Given 05/14/2021 7:56 AM CDT 25 mg Given 05/13/2021 7:48 PM CDT 25 mg HYDROmorphone (DILAUDID) injection 0.5 mg 0.5 mg, intravenous, Administer over 2 Minutes, Once, On Tue05/10/21 at 1216, For 1 dose, Indications: PainIndications:Pain Given 05/10/2021 1:09 PM CDT 0.5 mg HYDROmorphone (DILAUDID) injection 0.5 mg 0.5 mg, intravenous, Administer over 2 Minutes, Every 3 hours PRN, 1st line for pain, Starting on Tue05/10/21 at 1357, Indications: PainIndications:Pain Given 05/11/2021 7:39 PM CDT 0.5 mg Given 05/11/2021 3:10 PM CDT 0.5 mg Given 05/11/2021 5:41 AM CDT 0.5 mg iohexoL (OMNIPAQUE) 240 mg iodine/mL injection solution 50 mL 50 mL, intrahepatic, Once in imaging, contrast, Starting on Tue05/11/21 at 0948, For 1 dose Contrast Given 05/11/2021 9:48 AM CDT 15 mL iohexoL (OMNIPAQUE) 240 mg iodine/mL injection solution 50 mL 50 mL, intrahepatic, Once in imaging, contrast, Starting on Tue05/12/21 at 1604, For 1 dose Contrast Given 05/12/2021 4:05 PM CDT 6 mL ioversoL (OPTIRAY 320) injection 100 mL 100 mL, intravenous, Once in imaging, contrast, Starting on Tue05/10/21 at 1207, For 1 dose Contrast Given 05/10/2021 12:08 PM CDT 100 mL ipratropium-albuteroL (DUO-NEB) 0.5-2.5 mg/3 mL nebulizer solution 3 mL 3 mL, nebulization, 4 times daily (manager 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 care), First dose on Tue05/13/21 at 1500, Indications: SOBIndications:SOB Given 05/14/2021 9:07 AM CDT 3 mL Given 05/13/2021 7:13 PM CDT 3 mL Given 05/13/2021 5:00 PM CDT 3 mL ipratropium-albuteroL (DUO-NEB) 0.5-2.5 mg/3 mL nebulizer solution 3 mL 3 mL, nebulization, Every 6 hours PRN (manager respiratory care), wheezing, shortness of breath, Starting on Tue05/14/21 at 0915, Indications: SOBIndications:SOB ketorolac (TORADOL) 15 mg/mL injection 15 mg 15 mg, intravenous, Once, On Tue05/10/21 at 1146, For 1 dose, For Adult IV push, administer over 15 seconds, Indications: PainIndications:Pain Given 05/10/2021 11:48 AM CDT 15 mg Lactated Ringer's (LR) infusion 125 mL/hr, intravenous, Continuous, Starting on Tue05/10/21 at 1430 New Bag 05/11/2021 10:55 PM CDT 125 mL/hr 125 mL/hr Restarted 05/11/2021 10:06 AM CDT Rate/Dose Verify 05/11/2021 8:48 AM CDT 125 mL/ hr Lactated Ringer's (LR) infusion 125 mL/hr, intravenous, Continuous, Starting on Tue05/12/21 at 1645, Phase I New Bag 05/12/2021 4:53 PM CDT 125 mL/hr 125 mL/ hr loratadine (CLARITIN) tablet 10 mg 10 mg, oral, Daily, First dose on Tue05/11/21 at 0900 Given 05/14/2021 7:56 AM CDT 10 mg Given 05/13/2021 8:17 AM CDT 10 mg Given 05/12/2021 9:16 AM CDT 10 mg menthol (HALLS) 6.8 mg lozenge lozenge 6.8 mg 6.8 mg (1 lozenge), mouth/throat, Every 2 hours PRN, sore throat, Starting on Tue05/11/21 at 1717 Given 05/11/2021 9:07 PM CDT 6.8 mg Given 05/11/2021 6:00 PM CDT 6.8 mg ondansetron (ZOFRAN) injection 4 mg 4 mg, intravenous, Administer over 2 Minutes, Once, On Tue05/10/21 at 1103, For 1 dose, Indications: Nausea, VomitingIndications:Nausea,Vomiting Given 05/10/2021 11:28 AM CDT 4 mg ondansetron (ZOFRAN) injection 4 mg 4 mg, intravenous, Administer over 2 Minutes, Every 6 hours PRN, nausea, vomiting, if not tolerating PO, Starting on 05/10/21 at 1357, Indications: Nausea and VomitingIndications:Nausea and Vomiting Given 05/12/2021 3:31 PM CDT 4 mg Given 05/11/2021 9:22 AM CDT 4 mg Given 05/10/2021 3:51 PM CDT 4 mg ondansetron ODT (ZOFRAN-ODT) disintegrating tablet 4 mg 4 mg, oral, Every 6 hours PRN, nausea, vomiting, Starting on Tue05/10/21 at 1357, Indications: Nausea and VomitingIndications:Nausea and Vomiting oxybutynin (DITROPAN) tablet 5 mg 5 mg, oral, 2 times daily, First dose on Tue05/10/21 at 2100 Given 05/14/2021 7:56 AM CDT 5 mg Given 05/13/2021 7:47 PM CDT 5 mg Given 05/13/2021 8:17 AM CDT 5 mg piperacillin-tazobactam (ZOSYN) 3.375 g in sodium chloride 0.9% 50 mL IVPB 3.375 g, intravenous, at 130 mL/hr, Administer over 30 Minutes, Every 6 hours scheduled, First dose on Tue05/10/21 at 1330, Indications: Abdominal/Pelvic InfectionIndications:Abdominal/Pel denisse Infection 05/14/2021 5:36 AM CDT 3.375 g 130 mL/hr 05/14/2021 12:37 AM CDT 3.375 g 130 mL/hr 05/13/2021 5:36 PM CDT 3.375 g 130 mL/hr sodium chloride 0.9% bolus 1,000 mL 1,000 mL, intravenous, at 1,000 mL/hr, Administer over 1 Hours, Once, On Tue05/10/21 at 1103, For 1 dose 05/10/2021 11:28 AM CDT 1,000 mL 1000 mL/hr sodium chloride 0.9% infusion 30 mL/hr, intravenous, Continuous, Starting on Tue05/12/21 at 1530 05/12/2021 4:52 PM CDT 30 mL/hr 30 mL/hr 05/12/2021 3:17 PM CDT sodium chloride 0.9% infusion 75 mL/hr, intravenous, Continuous, Starting on Tue05/12/21 at 1945 05/13/2021 10:20 PM CDT 75 mL/hr 75 mL/hr Rate/Dose Change 05/13/2021 12:32 PM CDT 75 mL/hr 75 mL/ hr Rate/Dose Change 05/13/2021 10:55 AM CDT 100 mL/hr 100 mL /hr traMADoL (ULTRAM) tablet 50 mg 50 mg, oral, Every 6 hours PRN, 2nd line for pain, Starting on Tue05/10/21 at 1608 Given 05/11/2021 9:48 PM CDT 50 mg venlafaxine (EFFEXOR) tablet 75 mg 75 mg, oral, Nightly, First dose on Tue05/10/21 at 2100 Given 05/13/2021 7:47 PM CDT 75 mg Given 05/12/2021 10:29 PM CDT 75 mg Given 05/11/2021 8:59 PM CDT 75 mg documented in this encounter Discontinued Medications Medication Sig Discontinue Reason Start Date End Da te HYDROcodone-ibuprofen (VICOPROFEN) 7.5-200 mg per tablet Take 1 tablet by mouth every 6 (six) hours as needed Therapy completed 07/20/2020 05/10/2021 metroNIDAZOLE (METROGEL) 0.75 % vaginal gel INSERT 1 APPLICATORFUL VAGINALLY QHS Therapy completed 06/27/2020 05/10/2021 documented as of this encounter Active and Recently Administered Medications Times are shown in CDT. Scheduled Medication Order 05/12/2021 05/13/2021 05/14/2021 cloNIDine (CATAPRES) tablet 0.3 mg 0.3 mg, oral, Daily, First dose on Tue05/11/21 at 0815 1513 (JAN Hold - Provider: Automatic Transfer Provider - Reason: Patient not available)171 (JAN Unhold - Provider: Automatic Transfer Provider)223 (Given - Provider: Elodia Perry RN) 1950 (Given - Provider: Lupe Larson, DEANN) enoxaparin (LOVENOX) syringe 40 mg 40 mg, subcutaneous, Daily (for enoxaparin), First dose on Tue05/10/21 at 2100, Indications: Deep Vein Thrombosis Prevention 1513 (JAN Hold - Provider: Automatic Transfer Provider - Reason: Patient not available)171 (JAN Unhold - Provider: Automatic Transfer Provider)223 (Given - Provider: Elodia Perry RN) 194 (Given - Provider: Lupe Larson, DEANN) famotidine (PEPCID) injection 20 mg (CANCELED) 20 mg, intravenous, Administer over 2 Minutes, 2 times daily, First dose on Tue05/12/21 at 2100 2233 (Given - Provider: Elodia Perry RN) 0817 (Given - Provider: Paty Quinn, DEANN)194 (Given - Provider: Lupe Larson, DEANN) 0757 (Given - Provider: Julia Moreno, DEANN) famotidine (PEPCID) tablet 20 mg 20 mg, oral, Daily, First dose on Tue05/15/21 at 0900, This medication, famotidine, was changed from IV route to oral route per protocol. Dose of famotidine adjusted per renal protocol for CrCl=<50 ml/min (CrCl=48.8 ml/min) fluticasone propionate (FLONASE) 50 mcg/actuation nasal spray 2 spray 2 spray, each nostril, Daily, First dose on Tue05/11/21 at 0900 0918 (Not Given - Provider: Paty Quinn RN - Reason: Patient/family refused)1513 (JAN Hold - Provider: Automatic Transfer Provider - Reason: Patient not available)1717 (JAN Unhold - Provider: Automatic Transfer Provider) 0817 (Not Given - Provider: Paty Quinn RN - Reason: Patient/family refused) 0850 (Given - Provider: Julia Moreno, DEANN) furosemide (LASIX) tablet 20 mg (COMPLETED) 20 mg, oral, Once, On Ailyn 05/14/21 at 1000, For 1 dose 0932 (Given - Provider: Julia Moreno, DEANN) gabapentin (NEURONTIN) capsule 300 mg 300 mg, oral, Nightly, First dose on Tue05/10/21 at 2100, Do not crush, break, or open. 1513 (JAN Hold - Provider: Automatic Transfer Provider - Reason: Patient not available)1717 (JAN Unhold - Provider: Automatic Transfer Provider)2229 (Given - Provider: Elodia Perry RN) 1946 (Given - Provider: Lupe Larson, DEANN) hydrALAZINE (APRESOLINE) tablet 25 mg 25 mg, oral, 3 times daily, First dose on Tue05/13/21 at 1300, Indications: hypertension 1252 (Given - Provider: Paty Quinn RN)1946 (Given - Provider: Lupe Larson, DEANN) 0756 (Given - Provider: Julia Moreno, DEANN)1552 (Given - Provider: Julia Moreno, DEANN) indomethacin (INDOCIN) 50 mg suppository 100 mg (COMPLETED) 100 mg, rectal, Once, On Tue05/12/21 at 1530, For 1 dose, Intra-Op, Refrigerate 1523 (Given - Provider: iLnda Larson RN)1530 (Due) ipratropium-albuteroL (DUO-NEB) 0.5-2.5 mg/3 mL nebulizer solution 3 mL (CANCELED) 3 mL, nebulization, 4 times daily (manager respiratory care), First dose on Tue05/13/21 at 1500, Indications: SOB 1700 (Given - Provider: Anahi Westfall, CORRECTIONS SPECIALIST)1913 (Given - Provider: Yanni Ruiz RRT) 0907 (Given - Provider: Anahi Westfall, CORRECTIONS SPECIALIST) loratadine (CLARITIN) tablet 10 mg 10 mg, oral, Daily, First dose on 05/11/21 at 0900 0916 (Given - Provider: Paty Quinn, DEANN)1513 (JAN Hold - Provider: Automatic Transfer Provider - Reason: Patient not available)1717 ([employer] [facility] Unhold - Provider: Automatic Transfer Provider) 0817 (Given - Provider: Paty Quinn, RN) 0756 (Given - Provider: Julia Moreno, DEANN) oxybutynin (DITROPAN) tablet 5 mg 5 mg, oral, 2 times daily, First dose on Tue05/10/21 at 2100 0916 (Given - Provider: Paty Quinn, DEANN)1513 ([employer] [facility] Hold - Provider: Automatic Transfer Provider - Reason: Patient not available)1717 ([employer] [facility] [employer] Unhold - Provider: Automatic Transfer Provider)2230 (Given - Provider: Elodia Perry RN) 0817 (Given - Provider: Paty Quinn, RN)1947 (Given - Provider: Lupe Larson RN) 0756 (Given - Provider: Julia Moreno, DEANN) piperacillin-tazobactam (ZOSYN) 3.375 g in sodium chloride 0.9% 50 mL IVPB (CANCELED) 3.375 g, intravenous, at 130 mL/hr, Administer over 30 Minutes, Every 6 hours scheduled, First dose on Tue05/10/21 at 1330, Indications: Abdominal/Pelvic Infection 0548 (New Bag - Provider: Elodia Perry RN)1238 (New Bag - Provider: Paty Quinn, DEANN)1513 ([employer] [facility] [employer] Hold - Provider: Automatic Transfer Provider - Reason: Patient not available)1717 ([employer] Unhold - Provider: Automatic Transfer Provider)1808 (New Bag - Provider: Paty Quinn, RN)2356 (New Bag - Provider: Elodia Perry RN) 0551 (New Bag - Provider: Elodia Perry RN)1157 (New Bag - Provider: Paty Quinn RN)1736 (New Bag - Provider: Paty Quinn RN) 0037 (New Bag - Provider: Lupe Larson, RN)0536 (New Bag - Provider: Lupe Larson, RN) venlafaxine (EFFEXOR) tablet 75 mg 75 mg, oral, Nightly, First dose on Tue05/10/21 at 2100 1513 (MAR Hold - Provider: Automatic Transfer Provider - Reason: Patient not available)1717 ([facility] Unhold - Provider: Automatic Transfer Provider)2229 (Given - Provider: Elodia Perry RN) 1945 (Given - Provider: Lupe Larson, RN) Continuous Medication Order 05/12/2021 05/13/2021 05/14/2021 Lactated Ringer's (LR) infusion (CANCELED) 125 mL/hr, intravenous, Continuous, Starting on Tue05/12/21 at 1645, Phase I 1653 (New Bag - Provider: Penny Maria RN) sodium chloride 0.9% infusion (CANCELED) 30 mL/hr, intravenous, Continuous, Starting on Tue05/12/21 at 1530 1517 (New Bag - Provider: Javier Vizcaino CRNA)1558 (Anesthesia Volume Adjustment - Provider: Javier Vizcaino CRNA)1652 (New Bag - Provider: Penny Maria RN)1654 (Not Given - Provider: Penny Maria RN - Reason: Other) sodium chloride 0.9% infusion (CANCELED) 75 mL/hr, intravenous, Continuous, Starting on Tue05/12/21 at 1945 2235 (New Bag - Provider: Elodia Perry RN) 0550 (New Bag - Provider: Elodia Perry RN)1055 (Rate/Dose Change - Provider: Paty Quinn RN)1232 (Rate/Dose Change - Provider: Paty Quinn, DEANN)2220 (New Bag - Provider: Lupe Larson, RN) PRN Medication Order 05/12/2021 05/13/2021 05/14/2021 cyclobenzaprine (FLEXERIL) tablet 10 mg 10 mg, oral, 3 times daily PRN, muscle spasms, Starting on Tue05/10/21 at 1607 1513 ([employer] [facility] Hold - Provider: Automatic Transfer Provider - Reason: Patient not available)171 ([employer] [facility] Unhold - Provider: Automatic Transfer Provider) diazePAM (VALIUM) tablet 5 mg 5 mg, oral, Every 8 hours PRN, anxiety, Starting on Tue05/10/21 at 1607 1513 ([employer] [facility] Hold - Provider: Automatic Transfer Provider - Reason: Patient not available)171 ([employer] [facility] [employer] Unhold - Provider: Automatic Transfer Provider) docusate sodium (COLACE) capsule 100 mg 100 mg, oral, 2 times daily PRN, constipation, Starting on Tue05/10/21 at 1357, Indications: constipation 1513 ([employer] [facility] Hold - Provider: Automatic Transfer Provider - Reason: Patient not available)171 ([employer] [facility] [employer] Unhold - Provider: Automatic Transfer Provider) HYDROmorphone (DILAUDID) injection 0.5 mg 0.5 mg, intravenous, Administer over 2 Minutes, Every 3 hours PRN, 1st line for pain, Starting on Tue05/10/21 at 1357, Indications: Pain 1513 ([employer] [facility] Hold - Provider: Automatic Transfer Provider - Reason: Patient not available)171 ([employer] [facility] [employer] Unhold - Provider: Automatic Transfer Provider) iohexoL (OMNIPAQUE) 240 mg iodine/mL injection solution 50 mL (COMPLETED) 50 mL, intrahepatic, Once in imaging, contrast, Starting on Tue05/12/21 at 1604, For 1 dose 1605 (Contrast Given - Provider: Rosario Winston, RT - Comment: LOT: [id number]: 11/20/2023) iohexoL (OMNIPAQUE) 240 mg iodine/mL injection solution (CANCELED) As needed, Starting on Tue05/12/21 at 1543, Intra-Op 1543 (Given - Provider: Nunu Steen MD) ipratropium-albuteroL (DUO-NEB) 0.5-2.5 mg/3 mL nebulizer solution 3 mL 3 mL, nebulization, Every 6 hours PRN (manager respiratory care), wheezing, shortness of breath, Starting on Ailyn 05/14/21 at 0915, Indications: SOB meloxicam (MOBIC) tablet 15 mg 15 mg, oral, Daily PRN, 1st line for pain, Starting on Tue05/10/21 at 1607 1513 ([employer] [facility] Hold - Provider: Automatic Transfer Provider - Reason: Patient not available)1717 ([employer] [facility] Unhold - Provider: Automatic Transfer Provider) menthol (HALLS) 6.8 mg lozenge lozenge 6.8 mg 6.8 mg (1 lozenge), mouth/throat, Every 2 hours PRN, sore throat, Starting on 05/11/21 at 1717 1513 ([employer] [facility] Hold - Provider: Automatic Transfer Provider - Reason: Patient not available)1717 ([employer] [facility] [employer] Unhold - Provider: Automatic Transfer Provider) ondansetron (ZOFRAN) injection 4 mg(Linked Group 1) 4 mg, intravenous, Administer over 2 Minutes, Every 6 hours PRN, nausea, vomiting, if not tolerating PO, Starting on 05/10/21 at 1357, Indications: Nausea and Vomiting 1513 ([employer] [facility] Hold - Provider: Automatic Transfer Provider - Reason: Patient not available)1531 (Given - Provider: Javier Vizcaino CRNA)171 ([employer] [facility] [employer] Unhold - Provider: Automatic Transfer Provider) ondansetron ODT (ZOFRAN-ODT) disintegrating tablet 4 mg(Linked Group 1) 4 mg, oral, Every 6 hours PRN, nausea, vomiting, Starting on 05/10/21 at 1357, Indications: Nausea and Vomiting 1513 ([employer] [facility] [employer] Hold - Provider: Automatic Transfer Provider - Reason: Patient not available)1531 (See Alternative - Provider: Javier Vizcaino CRNA)171 ([employer] [facility] [employer] Unhold - Provider: Automatic Transfer Provider) traMADoL (ULTRAM) tablet 50 mg 50 mg, oral, Every 6 hours PRN, 2nd line for pain, Starting on 05/10/21 at 1608 1513 ([employer] [facility] Hold - Provider: Automatic Transfer Provider - Reason: Patient not available)1717 ([employer] [facility] [employer] Unhold - Provider: Automatic Transfer Provider) Linked Groups Order Group 1: ondansetron ODT (ZOFRAN-ODT) disintegrating tablet 4 mgJump to med 4 mg, oral, Every 6 hours PRN, nausea, vomiting, Starting on 05/10/21 at 1357, Indications: Nausea and Vomiting Or ondansetron (ZOFRAN) injection 4 mgJump to med 4 mg, intravenous, Administer over 2 Minutes, Every 6 hours PRN, nausea, vomiting, if not tolerating PO, Starting on 05/10/21 at 1357, Indications: Nausea and Vomiting documented in this encounter Orders Medications Ordered That Sonu ht Not Have Been Administered Count Last Ordered Date First Ordered Date famotidine (PEPCID) tablet 20 mg 1 05/14/20 21 ipratropium-albuteroL (DUO-N EB) 0.5-2.5 mg/3 mL nebulizer solution 3 mL 1 05/14/2021 fentaNYL (SUBLIMAZE) preserv ative free injection 25 mcg 2 05/12/2021 05/11/2021 indomethacin (INDOCIN) 50 mg suppository 100 mg 1 05/12/2021 iohexoL (OMNIPAQUE) 240 mg i odine/mL injection solution 2 05/12/2021 05/11/2021 metoclopramide (REGLAN) injection 10 mg 1 0 05/12/2021 naloxone (NARCAN) 0.4 mg/mL injection 0.04-0.4 mg 2 05/12/2021 05/11/2021 bupivacaine (MARCAINE) 0.5 % (5 mg/mL) preservative free injection 1 05/11/2021 ondansetron (ZOFRAN) injection 4 mg 1 05/11 sodium chloride 0.9% irrigation 1 cyclobenzaprine (FLEXERIL) tablet 10 mg 1 0 05/10/2021 diazePAM (VALIUM) tablet 5 mg 1 05/10/2021 docusate sodium (COLACE) capsule 100 mg 1 0 05/10/2021 meloxicam (MOBIC) tablet 15 mg 1 05/10/2021 ondansetron ODT (ZOFRAN-ODT) disintegrating tablet 4 mg 1 05/10/2021 Diet Count Last Ordered Date First Orde red Date ADULT DISCHARGE DIET 1 05/14/2021 Nursing Count Last Ordered Date First Orde red Date DISCHARGE ACTIVITY 1 05/14/2021 DISCHARGE CALL PROVIDER 8 05/14/2021 DISCHARGE INSTRUCTIONS 1 05/14/2021 FOLLOW UP WITH ESTABLISHED PROVIDER 3 05/14 VERIFY INFORMED CONSENT 1 05/12/2021 WEIGH PATIENT 1 05/10/2021 Consult Count Last Ordered Date First Orde red Date IP CONSULT TO GENERAL SURGERY 1 05/10/2021 IV Count Last Ordered Date First Orde red Date SALINE LOCK IV 1 05/10/2021 Case Request Count Last Ordered Date First Orde red Date CASE REQUEST GI 1 05/12/2021 ADT Patient Update Count Last Ordered Date Firs t Ordered Date ED IP DECISION TO ADMIT 05/10/2021 documented in this encounter Care Teams Performance Instructor Relationship Specialty Start Date End Date Brandon Chavez MD PCP - General 03/26/21 Jess Moss MD Consulting Physician General Surgery 05/14/21 Nunu Steen MD Consulting Physician Gastroenterology 05/14/21 documented as of this encounter
--- OUTSIDE RECORDS SUMMARY | 2024-10-27 10:56 | XMS_ITS | Encounter Summary ---
Author Organization [facility] Address [address] [place] [address] Care Team Providers Care Benzene Worker Name Role Phone Brandon Dumont MD Primary Care Provider [phone] Abisai Moss MD Unavailable Nunu Steen MD Unavailable [phone] Reason for Visit * Reason Comments Hospital Follow Up Pt was in the hospit al on 05/10 dx cholecystitis and is here today for a follow up. Pt states that she is still really sore and tender. She has been taking Ibuprofen but it is not helping. Pt states that as far a diet she is still doing the liquid diet because the solid foods are not working. Encounter Details Date Type Department Care Team (Latest Contact Info) Description 05/26/2021 9:30 AM CDT Office Visit [facility] Gastroenterology at [address] [place] [address] Ernie Walter NP [address] [place] [address] Cholecystitis (Primary Dx); S/P ERCP; Epigastric pain; Elevated liver enzymes; Nausea; Diarrhea, unspecified type; Colon cancer screening Social History Tobacco Use Types Packs/Day Years Used Date Smoking Tobacco: Former Cigarettes Smokeless Tobacco: Never Comments:quit 2020 Alcohol Use Standard Drinks/Week Comments Not Currently 0 (1 standard drink = 0.6 oz pur e alcohol) Comments No Sex and Gender Information Value Date Recorded Sex Assigned at Not on file Legal Sex 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 Gender Identity Not on file Sexual Orientation Not on file documented as of this encounter Last Filed Vital Signs Vital Sign Reading Time Taken Comments Blood Pressure 130/70 05/26/2021 9:46 AM CDT Pulse 71 05/26/2021 9:46 AM CDT Temperature 36.2 ??C (97.2 ??F) 05/26/2021 9:46 AM CD T Respiratory Rate - - Oxygen Saturation 96% 05/26/2021 9:46 AM CDT Inhaled Oxygen Concentration - - Weight 64 kg (141 lb 3.2 oz) 05/26/2021 9:46 AM CDT Height 165.1 cm (5' 5 ) 05/26/2021 9:46 AM CDT Body Mass Index 23.5 05/26/2021 9:46 AM CDT documented in this encounter Progress Notes * Ernie Barrett NP - 05/26/2021 9:30 AM CDT Images from the original note were not included. PATIENT DEMOGRAPHICS Joselyn Amado is a 60 y.o. Black Or female. PATIENT'S CARE TEAM Patient Care Team: Brandon Dumont MD as PCP - Abisai Way MD as Consulting Physician (General Surgery) Nunu Steen MD as Consulting Physician (Gastroenterology) EMOGRAPHICS CHIEF COMPLAINT Chief Complaint Patient presents with ??? Hospital Follow Up Pt was in the hospital on 05/10 dx cholecystitis and is here today for a follow up. Pt states that she is still really sore and tender. She has been taking Ibuprofen but it is not helping. Pt states that as far a diet she is still doing the liquid diet because the solid foods are not working. HPI New or existing patient visit: New. Referring Provider: Brandon Dumont MD Joselyn is here today for hospital discharge follow up (cholecystitis). Doing okay. Epigastric painis slowly improving. Still having some nausea issues after eating, but no vomiting. Appetite is slowly improving. She is trying to eat more solids, but finds herself tolerating liquids better. Sticking to mainly low fat items. No significant weight change. She is taking [id number] ibuprofen fo r pain (she is not currently taking Meloxicam). She is currently out of her chronic narcotic pain medication and is to follow-up with that provider. She is having a little bit of diarrhea after eating, but it is not problematic. She is taking Zofran for the nausea and it helps. Does not need refill. She was hospitalized with right upper quadrant pain, nausea, and vomiting on 05/10 (discharged 05/14). Diagnosed with acute cholecystitis. Underwent lap lazaro with cholangiogram by Dr. Moss on 05/11/2021. Pt was found to have a filling defect on intra op cholangiogram that could not be removed, and with pt having??elevated LFTs and??continued abdominal pain after surgery, GI was consulted for possible ERCP.??Had ERCP with sphincterotomy done on 05/12 (with Dr. Steen), and no stone was found. Saw. Dr. Moss for follow up on 05/21/21 and he had no concerns at that time. On 05/10/2021 lipase and liver enzymes were normal. After surgery, on 05/12 alk- phos was elevated at 151; ALT elevated at 197; an AST elevated at 135. By 05/13 alk phos was normal at 126; ALT elevated at 126; AST normal at 43. After ERCP on 05/14/2021, alk-phos was 248; ALT 234; an AST 146. She has never had colonoscopy or any form of colon cancer screening. No family history of colon cancer or colon polyps. No bowel habit changes or blood in stool. Okay with completing screening colonoscopy later this year. REVIEW OF SYSTEMS Review of Systems Constitutional: Negative for activity change, appetite change, chills, diaphoresis, fatigue, fever,and unexpected weight change. HENT: Negative for congestion, drooling, mouth sores, postnasal drip, rhinorrhea, sore throat, trouble swallowing, and voice change. Respiratory: Negative for cough, choking, chest tightness, shortness of breath, wheezing, and stridor. Cardiovascular: Negative for chest pain, palpitations, and leg swelling. Gastrointestinal: Negative for anal bleeding, blood in stool, constipation, rectal pain, heartburn,reflux, and vomiting. +for nausea, diarrhea, and epigastric pain. Genitourinary: Negative for difficulty urinating, dysuria, frequency, [...] 05/10/2021 Added automatically from request for surgery [id number] ??? Choledocholithiasis with acute cholecystitis 05/10/2021 Added automatically from request for surgery [id number] ??? Referred otalgia of left ear 09/30/2020 [...] Procedure Laterality Date ??? BACK SURGERY 2016 Family History Problem Relation Age of Onset [...] Use Topics ??? Alcohol use: Not Currently ??? Drug use: Not on file MEDICATIONS Current Outpatient Medications: ??? cloNIDine (CATAPRES) 0.3 mg tablet ??? cyclobenzaprine (FLEXERIL) 10 mg tablet ??? diazePAM (VALIUM) 5 mg tablet ??? ergocalciferol (VITAMIN D) 50,000 unit capsule ??? gabapentin (NEURONTIN) 300 mg capsule ??? hydrALAZINE (APRESOLINE) 25 mg tablet ??? loratadine 10 mg capsule ??? meloxicam (MOBIC) 15 mg tablet ??? ondansetron ODT (ZOFRAN-ODT) 8 mg disintegrating tablet ??? oxybutynin (DITROPAN) 5 mg tablet ??? tapentadol ER (NUCYNTA ER) 100 mg 12 hr tablet ??? venlafaxine (EFFEXOR) 75 mg tablet ??? fluticasone propionate (FLONASE) 50 mcg/actuation nasal spray Medications were reviewed and updated as needed. ALLERGIES Allergies Allergen Reactions ??? Adhesive Rash Allergies were reviewed and updated as needed. PHYSICAL EXAM BP 130/70 (BP Location: Left arm, Patient Position: Sitting) Pulse 71 Temp 36.2 ??C (97.2 ??F) (Temporal) Ht 165.1 cm (5' 5 ) Wt 64 kg (141 lb 3.2 oz) SpO2 96% BMI 23.50 kg/m?? No LMP recorded. Patient is postmenopausal. Physical Exam Constitutional: General: No acute distress. Appearance: Not ill-appearing. Weight is healthy. Eyes: General: No scleral icterus. Neck: Thyroid: No thyroid mass or thyromegaly. Trachea: Trachea normal. Cardiovascular: Rate and Rhythm: Normal rate and regular rhythm. Heart sounds: No murmur heard. Appearance: No edema in legs. Pulmonary: Effort: Pulmonary effort is normal. Breath sounds: Normal breath sounds. Abdominal: General: Bowel sounds are normal. Laparoscopic incisions appear to be healing well. Epigastric one is mildly tender. Palpations: Abdomen is soft and non-distended. Tenderness: There is epigastric tenderness that is slightly L sided and worsens with palpitation. There is no guarding or rebound. Hernia: [...] Diagnoses and all orders for this visit: Cholecystitis (Primary) - CBC with auto differential; Future - Comprehensive metabolic panel; Future - Urinalysis reflex to microscopic and culture Urine; Future - Lipase; Future Incisions appear to be healing well. Still having some nausea after eating and diarrhea after eating. See further discussions below. Overall- appears to be healing well. S/P ERCP Epigastric pain - CBC with auto differential; Future - Comprehensive metabolic panel; Future - Urinalysis reflex to microscopic and culture Urine; Future - Lipase; Future Having persistent epigastric pain that is slightly left sided. Likely r/t ERCP procedure. Slowly improving, but not resolved. Can continue use of OTC ibuprofen PRN for pain relief until she follows up with provider who prescribes her chronic opiates. Will reassess labs, including lipase to rule outpancreatitis. She was encouraged to stick with low fat eating and avoiding alcohol use until all pain has fully resolved. Will follow up with me if symptoms worsen. Tentative plan is to see her back in 3 months. Elevated liver enzymes - CBC with auto differential; Future - Comprehensive metabolic panel; Future - Urinalysis reflex to microscopic and culture Urine; Future - Lipase; Future Likely r/t ERCP and are hopefully trending down at this point. Will reassess. Nausea Postprandial nausea remains problematic. Likely r/t post-cholecystectomy state. PRN Zofran helps; will continue; does not need refills. Will continue to monitor. Will hopefull resolve over next several weeks. Encouraged to stick to low fat foods for a while. Diarrhea, unspecified type Mild and occurs after eating. Likely r/t rapid bile transit due to lack of gallbladder for bile storage. Will hopefully improve over time. Encouraged to avoid eating fatty/greasy foods. Colon cancer screening No family history of colon cancer. No concerning symptoms. Has never completed any form of colon cancer screening. Agreeable to completing colonoscopy with Dr. Steen in the Fall. Will get her setup for procedure. Risks/benefits of procedure (colonoscopy) were discussed with patient and all questions were answered. Return in about 3 months (around 08/26/2021) for To make sure things are still going well . Medication(s) and/or immunization(s) uses and side effects briefly discussed. Patient verbalizes understanding of all instructions provided today and agrees with plan. Total time spent on the date of the [id number] encounter, including both pxxo-ob-vfjz time (including staff/provider time spent providing education) and man-wxhp-ox-face time (pre-charting, reviewing chart, post-charting) was 46 minutes. This note is dictated and transcribed by [employer]. Sales Office Manager variances may occur. Despite proofreading, typographical errors may occur. My collaborating physician is Dr. Nunu Steen. Ernie Barrett NP Cosigned by Nunu Steen MD at 06/04/2021 3:01 PM CDT documented in this encounter Plan of Treatment Not on file documented as of this encounter Results * Lipase (05/26/2021 10:25 AM CDT) Lipase 18 10 - 99 Units/L [facility]) Blood specimen (specimen) 05/26/2021 10:25 AM CDT 05/26/2021 1:22 PM CDT Ernie Walter NP LAB BLOOD ORDERABLE S Final Result [facility] ([place]) [address] [facility] Department [place] [address] * (ABNORMAL) Urinalysis reflex to microscopic and culture Urine (05/26/2021 10:25 AM CDT) Color, ur Yellow Yellow [facility] ([place]) Clarity, ur Clear Clear [facility] ([place]) Specific gravity, ur 1.025 1.010 - 1.025 [...] AM CDT 05/26/2021 1:22 PM CDT Narrative [facility] ([place] - 05/26/2021 1:32 PM CDT ?? Urine pH is affected by diet, medications, systemic acid-base disturbances, and renal tubular function. ??pH may affect urinary stone formation. ??For example, urine pH below 6.0 may help reduce the tendency for calcium phosphate stones and pH greater than 6.0 may reduce the tendency for uric acid stone formation. Source: [facility] ITS Compliance. Last revised 11-17-2017 Ernie Walter NP LAB MICROBIOLOGY - GENERAL ORDERABLES Final Result [facility] Department [place] [address] * (ABNORMAL) Comprehensive metabolic panel (05/26/2021 10:25 AM CDT) Sodium 139 135 - 145 mmol/L [facility] Potassium, pl 4.6 3.3 - 4.9 mmol/L [facility] Chloride 104 97 - 110 mmol/L [facility] CO2 27 22 - 32 mmol/L [facility] Anion gap 8 2 - 15 mmol/L [facility] BUN 13 8 - 25 mg/dL [facility] Creatinine 0.95 0.60 - 1.10 [...] CDT 05/26/2021 1:22 PM CDT Ernie Walter [facility] LAB BLOOD ORDERABLE S Final Result [facility] [address] [facility] Department [place] [address] * (ABNORMAL) CBC with auto differential (05/26/2021 10:25 AM CDT) WBC 9.2 3.8 - 9.9 K/cumm [facility] Hgb 13.8 11.9 - 15.5 g/dL [facility] Hct 40.3 35.6 - 45.5 % [facility] Plt 255 150 - 400 K/cumm [facility] MPV 10.9 9.1 - 12.3 fL [facility] RBC 5.12 3.90 - 5.20 M/cumm [facility] ([place]) MCV 78.7(L) 81.3 - 96.4 fL [facility] MCH 27.0(L) 27.1 - 33.3 pg [facility] MCHC 34.2 32.3 - 35.7 g/dL [facility] ([place] RDW CV 14.1 11.1 - 14.9 % [facility] RDW SD 40.6 35.7 - 48.1 fL [facility] NRBC abs 0.00 0.00 - 0.01 K/cumm [facility] Blood specimen (specimen) 05/26/2021 10:25 AM CDT 05/26/2021 1:22 PM CDT Ernie Walter [facility] LAB BLOOD ORDERABLE S Final Result [facility] ([place] [address] [facility] Department [place] [address] documented in this encounter Visit Diagnoses Diagnosis Cholecystitis- Primary Cholecystitis, unspecified S/P ERCP Epigastric pain Abdominal pain, epigastric Elevated liver enzymes Other nonspecific abnormal serum enzyme levels Nausea Nausea alone Diarrhea, unspecified type Colon cancer screening Special screening for malignant neoplasms, colon Cholecystitis Cholecystitis, unspecified S/P ERCP Epigastric pain Abdominal pain, epigastric Elevated liver enzymes Other nonspecific abnormal serum enzyme levels documented in this encounter Discontinued Medications Medication Sig Discontinue Reason Start Date End Da te traMADoL (ULTRAM) 50 mg tablet Take 50 mg by mouth every 6 (six) hours as needed 12/24/2019 05/26/2021 documented as of this encounter Care Teams Benzene Worker Relationship Specialty Start Date End Date Brandon Dumont MD PCP - General 03/26/21 Abisai Moss MD Consulting Physician General Surgery 05/14/21 Nunu Steen MD Consulting Physician Gastroenterology 05/14/21 documented as of this encounter
--- OUTSIDE RECORDS SUMMARY | 2024-10-27 10:56 | XMS_ITS | Encounter Summary ---
Author Organization [facility] Address [address] [place] [address] Care Team Providers Care Mitten Sewer Name Role Phone Brandon Dumont MD Primary Care Provider [phone] Abisai Moss MD Unavailable Nunu Steen MD Unavailable [phone] Encounter Details Date Type Department Care Team (Late st Contact Info) Description 08/24/2021 Telephone [facility] Gastroenterology at [address] [place] [address] Belle Meneses MA Social History Tobacco Use Types Packs/Day Years Used Date Smoking Tobacco: Former Cigarettes Smokeless Tobacco: Never Comments:quit 2020 Alcohol Use Standard Drinks/Week Comments Not Currently 0 (1 standard drink = 0.6 oz pur e alcohol) Comments No Sex and Gender Information Value Date Recorded Sex Assigned at Not on file 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
--- OUTSIDE RECORDS SUMMARY | 2024-10-27 10:56 | XMS_ITS | Encounter Summary ---
Author Organization [facility] Address [address] [place] [id number] Care Team Providers Care Engineering Designer Name Role Phone Brandon Dumont MD Primary Care Provider [phone] Abisai Moss MD Unavailable Nunu Steen MD Unavailable [phone] Reason for Visit * Reason Comments COVID-19 EVALUATION nasal d/c cough,st x 3 days Encounter Details Date Type Department Care Team (Late st Contact Info) Description 11/14/2021 11:15 AM SVP OF DIGITAL Office Visit [facility] [address] [place] [id number] Rylie Vasquez, ROHAN [address] [place] [address] COVID-19 (Primary Dx) Social History Tobacco Use Types Packs/Day Years Used Date Smoking Tobacco: Former Cigarettes Smokeless Tobacco: Never Comments:quit 2019 Alcohol Use Standard Drinks/Week Comments Not Currently 0 (1 standard drink = 0.6 oz pur e alcohol) Comments No Sex and Gender Information Value Date Recorded Sex Assigned at Not on file Legal Sex Female 12:50 AM SVP OF DIGITAL Gender Identity Not on file Sexual Orientation Not on file documented as of this encounter Last Filed Vital Signs Vital Sign Reading Time Taken Comments Blood Pressure 142/80 11/14/2021 11:10 AM SVP OF DIGITAL Pulse 98 11/14/2021 11:10 AM SVP OF DIGITAL Temperature 36.7 ??C (98.1 ??F) 11/14/2021 11:[address] Respiratory Rate 18 11/14/2021 11:10 AM SVP OF DIGITAL Oxygen Saturation 96% 11/14/2021 11:10 AM SVP OF DIGITAL Inhaled Oxygen Concentration - - Weight 64 kg (141 lb) 11/14/2021 11:10 AM SVP OF DIGITAL Height - - Body Mass Index 23.46 05/26/2021 9:46 AM CDT documented in this encounter Patient Instructions * Patient Instructions* Rylie Vasquez, PHOTOGRAPHIC EQUIPMENT TECHNICIAN - 11/14/2021 11:15 AM SVP OF DIGITAL The rapid COVID test performed today in clinic was positive. The following are recommendations for treating the symptoms related to COVID19. What is the difference between Influenza (Flu) and COVID-19? Influenza (Flu) and COVID-19 are both contagious respiratory illnesses, but they are caused by different viruses. COVID-19 is caused by infection with a new coronavirus (called SARS-CoV-2) and flu is caused by infection with influenza viruses. There are some vega differences between flu and COVID-19. COVID-19 seems to spread more easily than flu and causes more serious illnesses in some people. It can also take longer before people show symptoms and people can be contagious for longer. The best way to prevent infection is to avoid being exposed to the virus. Because some of the symptoms of flu and COVID-19 are similar, it may be hard to tell the difference between them based on symptoms alone, and testing may be needed to help confirm a diagnosis.While more is learned every day, there is still a lot that is unknown about COVID-19 and the virus that causes it. The [facility] Department will be reaching out to all patients who have a positive test for further discussion and monitoring. Continue to self isolate until at least 10 days have passed since symptom onset, your symptoms have improved, and you have been fever free without the use of fever reducing medications for at least 24 hours. You may use acetaminophen and/or ibuprofen to control pain and fever. If you have chronic liver disease, have ever had a stomach ulcer or gastrointestinal bleeding talk with your healthcare provider before using these medicines. Aspirin should never be given to anyone under 18 years of age who is ill with a viral infection or fever. It may cause severe liver or brain damage. Your appetite may be poor, so a light diet is ok. Stay well hydrated by drinking 6 to 8 glasses of fluids per day (water, soft drinks, juices, tea, or soup). Extra fluids will help loosen secretions in the nose and lungs. Wlbf-fnm-vouvctk cold medicines will not shorten the length of time you???re sick, but they may be helpful for relieving the following symptoms: headache, cough, sore throat, and nasal and sinus congestion. If you take prescription medicines, ask your healthcare provider or pharmacist which xbzc-orc-tiogezx medicines are safe to use. (Note: DO NOT use decongestants if you have high blood pressure.) Steps to help prevent the spread of [...] yourself. Get rest and stay hydrated. Take oecb-ska-dsbrzpf medicines to help you feel better. ??? Stay in touch with your doctor. Call before you get medical care. Be sure to get care if you have trouble breathing, or have any other emergency warning signs, or if you think it is an emergency. ??? Avoid using public transportation, ride-sharing, or taxis. Monitor your symptoms ??? Symptoms of COVID-19 include fever, cough, [...] and need to call 911, notify the receiving distribution station operator that you have or think you might have, COVID-19. If possible, put on a facemask before medical help arrives. Separate yourself from other people in your home, this is known as home isolation ??? As much as possible, you should stay away from other people and pets in your home. You should stay in a specific ???sick room?? if possible. Use a separate bathroom, if available. If you need berlin around other people or animals in or outside of the home, wear a mask For more information on sharing close living quarters with someone who is sick visit https://www.cdc .gov/coronavirus/2019-ncov/kqamj-vxbk-hwqlyh/giqhjj-mt-iaewt-quarters.html For more information on COVID-19 and pets visit https://www.cdc.gov/coronavirus/2019-ncov/faq.html Call ahead before visiting your doctor ??? Many medical visits for routine care are being postponed or done by phone or telemedicine. ??? If you have a medical appointment that cannot be postponed, call your doctor???s office, and tell them you have or may have COVID-19. This will help the office protect themselves and other patients. If You Test Positive for COVID-19 (Isolate) Everyone, regardless of vaccination status. Stay home for 5 days. If you have no symptoms or your symptoms are resolving after 5 days, you can leave your house. Continue to wear a mask around others for 5 additional days. If you have a fever, continue to stay home until your fever resolves. If You Were Exposed to Someone with COVID-19 (Quarantine) If you: Have been boosted OR Completed the primary series of Pfizer or Moderna vaccine within the last 6 months OR Completed the primary series of J&J vaccine within the last 2 months: Wear a mask around others for 10 days. Test on day 5, if possible. If you develop symptoms get a test and stay home. If you: Completed the primary series of Pfizer or Moderna vaccine over 6 months ago and are not boosted OR Completed the primary series of J&J over 2 months ago and are not boosted OR Are unvaccinated: Stay home for 5 days. After that continue to wear a mask around others for 5 additional days. If you can???t quarantine you must wear a mask for 10 days. Test on day 5 if possible. If you develop symptoms, get a test & stay home OF DIGITAL documented in this encounter Progress Notes * Rylie Vasquez NP - 11/14/2021 11:15 AM CST Images from the original note were not included. Subjective/Objective Patient ID: Joselyn Amado is a 61 y.o. female. Chief Complaint COVID-19 EVALUATION (nasal d/c cough,st x 3 days) Presents to clinic for runny nose, sinus pressure, sore throat, cough, body aches, headaches x3 days. COVID exposure on 11/09, she has had the COVID vaccine. She has not taken any OTC meds Review of Systems Constitutional: Negative for activity change, appetite change, fatigue and fever. HENT: Positive for postnasal drip, sinus pressure and sore throat. Negative for congestion, ear discharge, ear pain and rhinorrhea. Eyes: Negative for discharge. Respiratory: Positive for cough. Negative for shortness of breath. Gastrointestinal: Negative for diarrhea, nausea and vomiting. Musculoskeletal: Positive for myalgias. Skin: Negative for rash. Neurological: Positive for headaches. Hematological: Negative for adenopathy. Physical Exam Vitals reviewed. Constitutional: General: She is not in acute distress. Appearance: Normal appearance. She is well-developed. She is not ill-appearing. HENT: Head: Normocephalic. Right Ear: Tympanic membrane, ear canal and external ear normal. Left Ear: Tympanic membrane, ear canal and external ear normal. Nose: No congestion or rhinorrhea. Right Sinus: No maxillary sinus tenderness or frontal sinus tenderness. Left Sinus: No maxillary sinus tenderness or frontal sinus tenderness. Mouth/Throat: Lips: [place]. Mouth: Mucous membranes are moist. Pharynx: Oropharynx is clear. Eyes: General: Right eye: No discharge. Left eye: No discharge. Conjunctiva/sclera: Conjunctivae normal. Cardiovascular: Rate and Rhythm: Normal rate and regular rhythm. Pulmonary: Effort: Pulmonary effort is normal. No respiratory distress. Breath sounds: Normal breath sounds and air entry. Abdominal: Tenderness: There is no abdominal tenderness. Musculoskeletal: General: Normal range of motion. Cervical back: Neck supple. Lymphadenopathy: Head: Right side of head: No tonsillar adenopathy. Left side of head: No tonsillar adenopathy. Cervical: No cervical adenopathy. Skin: General: Skin is warm and dry. Findings: No rash. Neurological: Mental Status: She is alert and oriented to person, place, and time. Mental status is at baseline. Psychiatric: Attention and Perception: Attention normal. Mood and Affect: Mood normal. Behavior: Behavior normal. Behavior is cooperative. Thought Content: Thought content normal. Judgment: Judgment normal. Vitals: 11/14/21 1110 BP: 142/80 Pulse: 98 Resp: 18 Temp: 36.7 ??C (98.1 ??F) SpO2: 96% Weight: 64 kg (141 lb) Assessment/Plan Lungs CTA, O2 Saturation 96%/RA, low suspicion for pneumonia at this time. Will recommend supportive care for symptoms with f/u precautions including signs/symptoms warranting ER evaluation. Discussed risk for dehydration and educated on s/s including dry mouth, poor skin turgor, and decreased urine output. Discussed home self-care, follow up needs, and signs and symptoms that warrant immediate medical attention/ER evaluation including worsening fever, increased shortness of breath, severe N/V/D, or anyother worrisome symptoms ?? Reviewed isolation/quarantine protocols ?? Discussed symptomatic relief of symptoms ?? Advised to rest and increase oral fluid intake ?? Advised to stay out of work and work release given explaining when patient can return to work Diagnoses and all orders for this visit: COVID-19 (Primary) - COVID-19 POC Recent Results (from the past 4 hour(s)) COVID-19 POC Collection Time: 11/14/21 11:14 AM Result Value Ref Range COVID-19 Ag POC (BD Veritor) Positive (A) Presumptive Negative, Invalid Patient Education: Disposition ??? [...] an opportunity to ask questions, questions answered. Rylie Vasquez NP OF DIGITAL documented in this encounter Plan of Treatment Not on file documented as of this encounter Procedures Procedure Name Priority Date/Time Associated Diagnosis Comments COVID-19 POC Routine 11/14/2021 11:14 AM SVP OF DIGITAL COVID-19 documented in this encounter Results * (ABNORMAL) COVID-19 POC (11/14/2021 11:14 AM SVP OF DIGITAL) COVID-19 Ag POC (BD Veritor) Positive( A) Presumptive Negative, Invalid [facility] 11/14/2021 11:1 4 AM SVP OF DIGITAL Rylie Vasquez NP POINT OF CARE TEST OR DERABLES Final Result [facility] [address] [place] [address] documented in this encounter Visit Diagnoses Diagnosis COVID-19- Primary documented in this encounter Additional Health Concerns Infection Onset Date Last Indicated Resolved Time COVID19 11/14/2021 11/14/2021 11/24/2021 3:06 AM SVP OF DIG[employer] documented as of this encounter Care Teams Engineering Designer Relationship Specialty Start Date End Date Brandon Dumont MD PCP - General 03/26/21 Abisai Moss MD Consulting Physician General Surgery 05/14/21 Nunu Steen MD Consulting Physician Gastroenterology 05/14/21 documented as of this encounter
--- OUTSIDE RECORDS SUMMARY | 2024-10-27 10:56 | XMS_ITS | Encounter Summary ---
Author Organization [facility] Address [address] [place] [address] Care Team Providers Care Manager Speech Name Role Phone Brandon Dumont MD Primary Care Provider [phone] Encounter Details Date Type Department Care Team (Late st Contact Info) Description 05/12/2021 3:12 PM CDT Anesthesia Event [facility] Operating Room [address] [place] [address] Zack To MD [address] [place] [address] Anesthesia Record Procedure Summary Procedure Name Responsible Anesthesiologist Anesthesia Start Time Anesthesia Stop Time ENDO ENDOSCOPIC RETROGRADE CHOLANGIOPANCREATOGRAPHY SPHINCTEROTOMY/PAPILLOTOMY Zack To MD 05/12/21 1512 05/12/21 1559 Events Date Time Event Comment 05/12/2021 1501 1512 An Start 1513 An Start Data 1513 In Room 1517 An Induction The patient was reevaluated immediately before moderate or deep sedation use and before anesthesia induction. 1518 An Intubation 1518 Anesthesia Ready 1548 An Extubation 1553 an stop data 1555 Out of Room 1559 Handoff to RN I completed my handoff [...] disposition at the time of handoff: PACU 1559 An Stop Meds Name Total succinylcholine 100 mg propofol 150 mg lidocaine 2 % PF 100 mg fentaNYL 100 mcg glucagon 1 mg dexamethasone 10 mg/mL 2 mg ondansetron (ZOFRAN) injection 4 mg 4 mg sodium chloride 0.9% infusion 600 mL * Agents Name O2 Air Sevoflurane Inspired Sevoflurane * Blood No blood administrations on file. Lines, Drains, and Airways Type Details Placement Removal Peripheral IV Placement Date: 05/10/21; Catheter Size: 22 G; Orientation: Left, Posterior; Location: Hand; Removal Date: 05/14/21; Removal Time: 1628; Removal Reason: Discharge 05/10/21 0000 by Lindsey Btaes RN 05/14/21 1628 by Julia Moreno RN RETIRED Surgical Site 05/11/21; 0935; Abdomen; 10/09/24 (Retired LDA, Removed/Completed by Cozi with LDA Utility); 1213 (Retired LDA, Removed/Completed by Cozi with LDA Utility) 05/11/21 0935 by Yuliya Masters RN 10/09/24 1213 by Discharge Provider, Automatic ETT Placement Date: 05/12/21; Placement Time: 151 (created via procedure documentation); Mask Ventilation: 1; Technique: Video laryngoscopy; Type: ETT - single; Single Lumen Tube Size: 7 mm; Cuffed: Yes; Laryngoscope: Mariana; Blade Size: 3; Location: Oral; Insertion Attempts: 1; Placement Verification: Auscultation, Capnometry; Removal Date: 05/12/21; Removal Time: 1548 05/12/21 1518 by Javier Vizcaino CRNA 05/12/21 1548 by Javier Vizcaino CRNA documented in this encounter Social History Tobacco Use Types Packs/Day Years Used Date Smoking Tobacco: Former Cigarettes Smokeless Tobacco: Never Comments:quit 2020 Alcohol Use Standard Drinks/Week Comments Not Currently 0 (1 standard drink = 0.6 oz pur e alcohol) Comments No Sex and Gender Information Value Date Recorded Sex Assigned at Not on file Legal Sex Female 12:50 AM 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 Gender Identity Not on file Sexual Orientation Not on file documented as of this encounter OR Notes * Anesthesia Postprocedure Evaluation - Zack To MD - 05/12/2021 4:31 PM CDT Patient: Joselyn Amado Procedure Summary Date: 05/12/21 Room / Location: [facility] OR [facility] OPERATING ROOM Anesthesia Start: 151 Anesthesia Stop: 155 Procedure: ENDO ENDOSCOPIC RETROGRADE CHOLANGIOPANCREATOGRAPHY SPHINCTEROTOMY/PAPILLOTOMY (N/A ) Diagnosis: Cholecystitis Elevated liver enzymes Choledocholithiasis with acute cholecystitis (Cholecystitis [K81.9]) (Elevated liver enzymes [R74.8]) (Choledocholithiasis with acute cholecystitis [K80.42]) Providers: Nunu Steen MD Responsible Provider: Zack To MD Anesthesia Type: general ASA Status: 3 Anesthesia Type: general Last vitals BP 155/90 Pulse 63 Temp 36.3 ??C (97.4 ??F) (Temporal) Resp 15 SpO2 91% Anesthesia Post Evaluation Patient location during evaluation: PACU Patient participation: complete - patient participated Level of consciousness: fully awake Pain management: adequate Airway patency: adequate Evidence of recall: no Cardiovascular status: acceptable Respiratory status: acceptable Hydration status: acceptable Pt is: normothermic Nausea/Vomiting status: none No complications documented. * Anesthesia Procedure Notes - Javier Vizcaino CRNA - 05/12/2021 3:28 PM CDT Associated Order(s): Airway Airway Patient location: OR Urgency: elective Date/time: 05/12/2021 3:18 PM Indications for airway management: anesthesia Difficult airway: no Staff: Placed by: HOUSING COUNSELOR: Javier Vizcaino CRNA Emergent airway documentation: Risks and benefits discussed: yes Consent obtained: yes Consent given by: patient Airway prep: Preoxygenated: yes Patient position: sniffing MILS maintained throughout: yes Mask difficulty assessment: 1 - vent by mask Spontaneous ventilation during airway: absent Sedation level during airway: GA Final airway details: Final airway type: endotracheal airway Tube type: ETT ETT size: 7.0 mm Cuffed: yes Technique used for successful ETT placement: video laryngoscopy Devices/Methods used in placement: intubating stylet Insertion site: oral Blade type: Mariana Video blade type: Dockery Blade size: 3 Cormack-Lehane (video): grade I - full view of glottis Cuff inflated with: air ETT to teeth: 20 cm Placement verified by: auscultation and CO2 detection Airway secured with: silk tape Number of attempts: 1 Ventilation between attempts: noneno * Anesthesia Preprocedure Evaluation - Zack To MD - 05/12/2021 1:52 PM CDT Images from the original note were not included. Anesthesia Evaluation Joselyn Amado is a 60 y.o. female Procedure(s): ERCP * No Diagnosis Codes entered * HISTORY HPI Denies family hx of anesthetic complications. Past Medical History Information obtained from: patient and chart. Neurological + TIA Number of TIA episodes: 1. + Psychiatric history - anxiety and depression Cardiovascular Cardiac system: negative Respiratory + Current smoker - Counseled to abstain from smoking the day of surgery. Patient refrained from smoking on day of surgery. Respiratory system: negative Hepatic / Heme Hepatic/Heme [...] liver enzymes ??? Choledocholithiasis with acute cholecystitis Past Medical History: Diagnosis Date ??? Bladder spasms ??? Chronic pain 2019 ??? Gall stones ??? Hot flashes Past Surgical History: Procedure Laterality Date ??? BACK SURGERY 2017 OB History No obstetric history on file. No Known Allergies Taking? Last Dose Start Date End Date Provider cloNIDine (CATAPRES) 0.3 mg tablet -- -- ProviderEsdras MD cyclobenzaprine (FLEXERIL) 10 mg tablet 10/01/20 -- Bailey Stinson NP Take 1 tablet (10 mg total) by mouth 3 (three) times a day as needed for muscle spasms diazePAM (VALIUM) 5 mg tablet 02/28/17 -- Esdras Fish MD ergocalciferol (VITAMIN D) 50,000 unit capsule -- -- Esdras Fish MD fluticasone propionate (FLONASE) 50 mcg/actuation nasal spray () 09/30/20 04/17/21 Alyce Bae, DO Administer 2 sprays into each nostril daily gabapentin (NEURONTIN) 300 mg capsule 09/03/20 -- Juan José Rehman MD Take 1 capsule (300 mg total) by mouth nightly loratadine 10 mg capsule -- -- Esdras Fish MD meloxicam (MOBIC) 15 mg tablet 09/03/20 09/03/21 Juan José Rehamn MD Take 1 tablet (15 mg total) by mouth daily Do not take with other NSAIDs ondansetron ODT (ZOFRAN-ODT) 8 mg disintegrating tablet 03/26/21 -- Ash Cosme MD Take 1 tablet (8 mg total) by mouth every 8 (eight) hours as needed for nausea or vomiting oxybutynin (DITROPAN) 5 mg tablet 04/16/21 -- Esdras Fish MD tapentadol ER (NUCYNTA ER) 100 mg 12 hr tablet 01/26/17 -- Esdras Fish MD traMADoL (ULTRAM) 50 mg tablet 12/24/19 -- Esdras Fish MD venlafaxine (EFFEXOR) 75 mg tablet -- -- Esdras Fish MD No current facility-administered medications for this visit. No current outpatient medications on file. Facility-Administered Medications Ordered in Other Visits: ??? cloNIDine (CATAPRES) tablet 0.3 mg, 0.3 mg, oral, Daily, 0.3 mg at 05/11/212057 ??? cyclobenzaprine (FLEXERIL) tablet 10 mg, 10 mg, oral, TID PRN ??? diazePAM (VALIUM) tablet 5 mg, 5 mg, oral, Q8H PRN ??? docusate sodium (COLACE) capsule 100 mg, 100 mg, oral, BID PRN ??? enoxaparin (LOVENOX) syringe 40 mg, 40 mg, subcutaneous, Daily-2099, 40 mg at 05/11/212058 ??? fluticasone propionate (FLONASE) 50 mcg/actuation nasal spray 2 spray, 2 spray, each nostril, Daily ??? gabapentin (NEURONTIN) capsule 300 mg, 300 mg, oral, Nightly, 300 mg at 05/11/212057 ??? HYDROmorphone (DILAUDID) injection 0.5 mg, 0.5 mg, intravenous, Q3H PRN, 0.5 mg at 05/11/211938 ??? Lactated Ringer's (LR) infusion, 125 mL/hr, intravenous, Continuous, Last Rate: 125 mL/hr at 05/11/212254, 125 mL/hr at 05/11/212254 ??? loratadine (CLARITIN) tablet 10 mg, 10 mg, oral, Daily, 10 mg at 05/12/21915 ??? meloxicam (MOBIC) tablet 15 mg, 15 mg, oral, Daily PRN ??? menthol (HALLS) 6.8 mg lozenge lozenge 6.8 mg, 1 lozenge, mouth/throat, Q2H PRN, 6.8 mg at 05/11/212106 ??? ondansetron ODT (ZOFRAN-ODT) disintegrating tablet 4 mg, 4 mg, oral, Q6H PRN OR ondansetron(ZOFRAN) injection 4 mg, 4 mg, intravenous, Q6H PRN, 4 mg at 05/11/21921 ??? oxybutynin (DITROPAN) tablet 5 mg, 5 mg, oral, BID, 5 mg at 05/12/21915 ??? piperacillin-tazobactam (ZOSYN) 3.375 g in sodium chloride 0.9% 50 mL IVPB, 3.375 g, intravenous, Q6H JOSE, Last Rate: 130 mL/hr at 05/12/21 1238, 3.375 g at 05/12/21 1238 ??? traMADoL (ULTRAM) tablet 50 mg, 50 mg, oral, Q6H PRN, 50 mg at 05/11/212147 ??? venlafaxine (EFFEXOR) tablet 75 mg, 75 mg, oral, Nightly, 75 mg at 05/11/212058 Social History Tobacco Use Smoking Status Former Smoker ??? Years: 40.00 Smokeless Tobacco Never Used Tobacco Comment quit 2019 Substance and Sexual Activity Alcohol Use Not [...] labs within last 720 hours. CBC RBC: 05/10/2021: 5.09 M/cumm RDW: No results found for requested labs within last 720 hours. MCHC: 05/10/2021: 34.6 g/dL MCH: 05/10/2021: 27.1 pg MCV: 05/10/2021: 78.4 fL* Hct: 05/10/2021: 39.9 % Hgb: 05/10/2021: 13.8 g/dL WBC: 05/10/2021: 9.7 K/cumm MPV: 05/10/2021: 10.4 fL Platelets: 05/10/2021: 223 K/cumm RDW CV: 05/10/2021: 13.9 % RDW Sd: 05/10/2021: 39.8 fL BMP Glucose: 05/10/2021: 98 mg/dL Calcium: 05/10/2021: 8.7 mg/dL Sodium: 05/10/2021: 139 mmol/L Potassium: 05/10/2021: 3.8 mmol/L CO2: 05/10/2021: 23 mmol/L Chloride: 05/10/2021: 105 mmol/L BUN: 05/10/2021: 21 mg/dL Creatinine: 05/10/2021: 1.09 mg/dL DOS Physical Exam Medical history, medications, and allergies reviewed. Attestation: I endorse the findings of the anesthesia pre-evaluation assessment dated: 05/12/2021. Airway Exam: Mallampati: II Cervical ROM: FROM Cardiovascular Exam: Rate: regular Pulmonary Exam: LCTA, bilat Dental Exam: Upper dentures and lower dentures Current state: Patient's current state is cooperative and interactive. Additional comments: NPO > 8 hours. Denies any symptoms of reflux. Anesthesia Plan ASA 3 My patient is approved for the Anesthesia Controlled Medication protocol when under care of a HOUSING COUNSELOR Planned anesthesia: General Team communication plan: oral ET tube Induction: Induction: intravenous. Postoperative Plan: Postoperative administration opioids intended. Patient's planned disposition post procedure is Floor. Informed Consent: Discussed plan with attending and HOUSING COUNSELOR. Anesthesia plan and risks discussed with patient. Consent and Attending signature: I and/or my designee have discussed the anesthesia plan, benefits, possible alternatives, parental presence at time of induction (if indicated), and clinically relevant risks that may include dental injury, unintentional awareness, and/or other complications. The patient and/or parent/legal guardian understand, and agree to proceed. All questions answered. documented in this encounter Plan of Treatment Not on file documented as of this encounter Procedures Procedure Name Priority Date/Time Associated Diagnosis Comments AR AN ELECTIVE ENDOTRACHEAL AIRWAY Routine 05/12/2021 3:18 PM CDT documented in this encounter Results * AR AN ELECTIVE ENDOTRACHEAL AIRWAY (05/12/2021 3:18 PM CDT) Narrative Javier Vizcaino CRNA - 05/12/2021 3:18 PM CDT Javier Vizcaino CRNA ? 05/12/2021 ??3:29 PM Airway Patient location: OR Urgency: elective Date/time: 05/12/2021 3:18 PM Indications for airway management: anesthesia Difficult airway: no Staff: Placed by: HOUSING COUNSELOR: Javier Vizcaino CRNA Emergent airway documentation: Risks and benefits discussed: yes Consent obtained: yes Consent given by: patient Airway prep: Preoxygenated: yes Patient position: sniffing MILS maintained throughout: yes Mask difficulty assessment: 1 - vent by mask Spontaneous ventilation during airway: absent Sedation level during airway: GA Final airway details: Final airway type: endotracheal airway Tube type: ETT ETT size: 7.0 mm Cuffed: yes Technique used for successful ETT placement: video laryngoscopy Devices/Methods used in placement: intubating stylet Insertion site: oral Blade type: Mariana Video blade type: Dockery Blade size: 3 Cormack-Lehane (video): grade I - full view of glottis Cuff inflated with: air ETT to teeth: 20 cm Placement verified by: auscultation and CO2 detection Airway secured with: silk tape Number of attempts: 1 Ventilation between attempts: noneno us Zack To MD ANESTHESIA ORDERABLES Final Result documented in this encounter Visit Diagnoses Not on filedocumented in this encounter Administered Medications Inactive Administered Medications - up to 3 most recent administrations Medication Order MAR Action Action Date Dose Rate Site dexAMETHasone (DECADRON) injection solution intravenous, Administer over 2 Minutes, As needed, Starting on Tue05/12/21 at 1531, Anesthesia Intra-op Given 05/12/2021 3:31 PM CDT 2 mg fentaNYL (SUBLIMAZE) preservative free injection intravenous, As needed, Starting on Tue05/12/21 at 1517, Anesthesia Intra-op Given 05/12/2021 3:17 PM CDT 100 mcg glucagon injection intravenous, Administer over 1 Minutes, As needed, Starting on Tue05/12/21 at 1531, Anesthesia Intra-op Given 05/12/2021 3:37 PM CDT 0.5 mg Given 05/12/2021 3:31 PM CDT 0.5 mg lidocaine (XYLOCAINE) 20 mg/mL (2 %) preservative free injection epidural, As needed, Starting on Tue05/12/21 at 1517, Anesthesia Intra-op Given 05/12/2021 3:17 PM CDT 100 mg ondansetron (ZOFRAN) injection 4 mg 4 mg, intravenous, Administer over 2 Minutes, Every 6 hours PRN, nausea, vomiting, if not tolerating PO, Starting on Tue05/10/21 at 1357, Indications: Nausea and VomitingIndications:Nausea and Vomiting Given 05/12/2021 3:31 PM CDT 4 mg Given 05/11/2021 9:22 AM CDT 4 mg Given 05/10/2021 3:51 PM CDT 4 mg propofoL (DIPRIVAN) 10 mg/mL IV intravenous, As needed, Starting on Tue05/12/21 at 1517, Anesthesia Intra-op Given 05/12/2021 3:17 PM CDT 150 mg sodium chloride 0.9% infusion 30 mL/hr, intravenous, Continuous, Starting on Tue05/12/21 at 1530 New Bag 05/12/2021 4:52 PM CDT 30 mL/hr 30 mL/hr New Bag 05/12/2021 3:17 PM CDT succinylcholine (ANECTINE) injection intravenous, As needed, Starting on Tue05/12/21 at 1517, Anesthesia Intra-op Given 05/12/2021 3:17 PM CDT 100 mg documented in this encounter Care Teams Manager Speech Relationship Specialty Start Date End Date Brandon Dumont MD PCP - General 03/26/21 documented as of this encounter
--- OUTSIDE RECORDS SUMMARY | 2024-10-27 10:56 | XMS_ITS | Encounter Summary ---
Author Organization [facility] Address [address] [place] [address] Care Team Providers Care Machine Fixer Name Role Phone Brandon Dumont MD Primary Care Provider [phone] Abisai Moss MD Unavailable Nunu Steen MD Unavailable [phone] Encounter Details Date Type Department Care Team (Late st Contact Info) Description 05/15/2021 Telephone [facility] Gastroenterology at [address] [place] [address] Belle Meneses MA Social History Tobacco Use Types Packs/Day Years Used Date Smoking Tobacco: Former Cigarettes Smokeless Tobacco: Never Comments:quit 2019 Alcohol Use Standard Drinks/Week Comments Not Currently 0 (1 standard drink = 0.6 oz pur e alcohol) Comments No Sex and Gender Information Value Date Recorded Sex Assigned at Not on file 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 Callback number [phone]. Returned pt phone call. Pt has been scheduled for a hospital follow up inthe office with ROHAN Klein on Tuesday05/26/2021 at 9:30 am. documented in this encounter Plan of Treatment Not on file documented as of this encounter Visit Diagnoses Not on filedocumented in this encounter Care Teams Machine Fixer Relationship Specialty Start Date End Date Brandon Dumont MD PCP - General 03/26/21 Abisai Moss MD Consulting Physician General Surgery 05/14/21 Nunu Steen MD Consulting Physician Gastroenterology 05/14/21 documented as of this encounter
--- OUTSIDE RECORDS SUMMARY | 2024-10-27 10:57 | XMS_ITS | Encounter Summary ---
Author Organization [facility] Address [address] [place] [address] Care Team Providers Care Felt Hooker Name Role Phone Unavailable Primary Care Provider Unavailabl e Encounter Details Date Type Department Care Team (Late st Contact Info) Description 04/17/2010 8:55 AM CDT - 04/17/2010 11:59 PM CDT Hospital Encounter [facility] Emi Esparza MD [address] [place] [id number] Pain in soft tissues of limb Social History Tobacco Use Types Packs/Day Years Used Date Smoking Tobacco: Never Assessed Comments Unknown Sex and Gender Information Value Date Recorded Sex Assigned at Not on file Legal Sex Female 12:50 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
--- OUTSIDE RECORDS SUMMARY | 2024-10-27 10:57 | XMS_ITS | Encounter Summary ---
Author Organization [facility] Address [address] [place] [address] Care Team Providers Care Digital Asset Manager Name Role Phone Unavailable Primary Care Provider Unavailabl e Encounter Details Date Type Department Care Team (Late st Contact Info) Description 07/26/2016 6:24 PM CDT - 07/26/2016 11:59 PM CDT Hospital Encounter [place] [address] [facility] [address] [id number] Atelectasis; Other nonspecific abnormal finding of lung field; History of recurrent pneumonia Social History Tobacco Use Types Packs/Day Years Used Date Smoking Tobacco: Never Assessed Comments Unknown Sex and Gender Information Value Date Recorded Sex Assigned at Not on file Legal Sex Female 12:50 AM 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 Gender Identity Not on file Sexual Orientation Not on file documented as of this encounter Plan of Treatment Not on file documented as of this encounter Procedures Procedure Name Priority Date/Time Associated Diagnosis Comments XR CHEST PA LATERAL 2 VIEWS Routine 07/26/2016 7:06 PM CDT documented in this encounter Results * XR Chest PA Lateral 2 View (07/26/2016 7:06 PM CDT) Anatomical Region Laterality Modality Body, Chest N/A Radiographic Yaerlis ging 07/26/2016 7:06 PM CDT Narrative 07/27/2016 5:47 PM CDT TD XR Chest 2 Views ?[id number] ??Acc#: ??[id number] DATE OF EXAM: ??Jul 26 2016 CLINICAL HISTORY: Personal history of pneumonia (recurrent). RESULT: PA and lateral projections are obtained, compared with 12/14/2006. Cardiac size and pulmonary vascularity are within the range of normal. Some minimal patchy infiltrates are seen in the lower lung linder. Some minimal atelectasis/scarring in the lower lung linder. No lung consolidation identified. Costophrenic angles are sharp. Minimal spurring of thoracic spine. A small opacity is seen left lower lung field. This has a somewhat nodular appearance. This may more likely be due to confluence of shadows. Short interval followup recommended. IMPRESSION: 1. ??MINIMAL PATCHY INFILTRATES OF THE LOWER LUNG LINDER, ALONG WITH SOME MINIMAL ATELECTASIS/SCARRING LOWER LUNG LINDER. POSSIBLE PNEUMONIA. SOME CHRONIC CHANGE MAY BE PRESENT. 2. ??SMALL OPACITY LEFT LOWER LUNG FIELD, CONFLUENCE OF SHADOWS VERSUS NODULE. SHORT INTERVAL FOLLOWUP RECOMMENDED. PRELIMINARY REPORT FAXED TO DR. Shalom PONCE ON 07/27/2016 AT 10:10 A.M. Interpreting Physician: ??HEAVEN LI M.D. ??Read on: ??Jul 26 2016 ??7:52P Transcribed by: ??TXD ??On: Jul 27 2016 10:10A Approved Electronically by: ??HEAVEN LI M.D. ??on: ??Jul 27 2016 ??5:47P Attending: ??RAJENDRA PONCE Requesting: ??RAJENDRA PONCE Requesting Fax: ??-- Attending Fax: ??-- Attending ID: ??[id number] Requesting ID: ??[id number] Report To 1 ID: ??[id number] Report To 1 Name: ??RAJENDRA PONCE Report To 1 FAX: ??-- NextGen Order #: Procedure Note Provider, MD Esdras - 02/26/2017 TD XR Chest 2 Views [id number] Acc#: [id number] DATE OF EXAM: Jul 26 2016 CLINICAL HISTORY: Personal history of pneumonia (recurrent). RESULT: PA and lateral projections are obtained, compared with 12/14/2006. Cardiacsize and pulmonary vascularity are within the range of normal. Someminimal patchy infiltrates are seen in the lower lung linder. Some minimalatelectasis/scarring in the lower lung linder. No lung consolidationidentified. Costophrenic angles are sharp. Minimal spurring of thoracicspine. A small opacity is seen left lower lung field. This has a somewhatnodular appearance. This may more likely be due to confluence of shadows.Short interval followup recommended. IMPRESSION: 1. MINIMAL PATCHY INFILTRATES OF THE LOWER LUNG LINDER, ALONG WITH SOMEMINIMAL ATELECTASIS/SCARRING LOWER LUNG LINDER. POSSIBLE PNEUMONIA. SOMECHRONIC CHANGE MAY BE PRESENT. 2. SMALL OPACITY LEFT LOWER LUNG FIELD, CONFLUENCE OF SHADOWS VERSUSNODULE. SHORT INTERVAL FOLLOWUP RECOMMENDED. PRELIMINARY REPORT FAXED TODR. Shalom PONCE ON 07/27/2016 AT 10:10 A.M. Interpreting Physician: HEAVEN LI M.D. Read on: Jul 26 2016 7:52P Transcribed by: BRITTANIE On: Jul 27 2016 10:10A Approved Electronically by: HEAVEN LI M.D. on: Jul 27 2016 5:47P Attending: RAJENDRA PONCE Requesting: RAJENDRA PONCE Requesting Fax: -- Attending Fax: -- Attending ID: [id number] Requesting ID: [id number] Report To 1 ID: [id number] Report To 1 Name: RAJENDRA PONCE Report To 1 FAX: -- NextGen Order #: us Historical Provider MD COLLINS XR PROCEDURES Final R esult documented in this encounter Visit Diagnoses Diagnosis Atelectasis Pulmonary collapse Other nonspecific abnormal finding of lung field History of recurrent pneumonia Personal history of pneumonia (recurrent) documented in this encounter
--- OUTSIDE RECORDS SUMMARY | 2024-10-27 10:57 | XMS_ITS | Encounter Summary ---
Author Organization [facility] Healthcare Address [address] [place] [address] Care Team Providers Care Risk Control Manager Name Role Phone Unavailable Primary Care Provider Unavailabl e Encounter Details Date Type Department Care Team (Late st Contact Info) Description 07/18/2014 12:52 PM CDT - 07/18/2014 11:59 PM CDT Hospital Encounter [place] [address] [place] [address] Dizziness and giddiness Social History Tobacco Use Types Packs/Day Years Used Date Smoking Tobacco: Never Assessed Comments Unknown Sex and Gender Information Value Date Recorded Sex Assigned at Not on file 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 Gender Identity Not on file Sexual Orientation Not on file documented as of this encounter Plan of Treatment Not on file documented as of this encounter Procedures Procedure Name Priority Date/Time Associated Diagnosis Comments VLWU CAROTID DUPLEX SCAN LIMTED STUDY OR UNILATERAL Routine 07/18/2014 1:57 PM CDT documented in this encounter Results * US Carotid Duplex Scan Limted study or unilateral (07/18/2014 1:57 PM CDT) Anatomical Region Laterality Modality Vascular Ultrasound 07/18/2014 1:57 PM CDT Narrative 07/19/2014 7:49 AM CDT vm VL/US Carotids ??Acc#: ??[id number] DATE OF EXAM: ??Jul 18 2014 CLINICAL HISTORY: Dizziness. ??Evaluate for carotid stenosis. RESULT: RIGHT CAROTID ARTERIAL TREE: ??No significant focal plaque is seen in the right carotid arterial tree. ??Peak systolic and diastolic velocity measurements are normal in the right common and right internal carotid artery. ??Vertebral flow is antegrade on the right. LEFT CAROTID ARTERIAL TREE: ??No significant focal plaque is seen in the left carotid arterial tree. ??Peak systolic and diastolic velocity measurements are normal in the left common and left internal carotid artery. ??Vertebral flow is antegrade on the left. IMPRESSION: NORMAL STUDY. Interpreting Physician: ??ЮЛИЯ NEWTON M.D. ??Read on: ??Jul 18 2014 ??2:04P Transcribed by: ??vam ??On: Jul 18 2014 ??6:03P Approved Electronically by: ??ЮЛИЯ NEWTON M.D. ??on: ??Jul 19 2014 ??7:49A Ordering DR: RAJENDRA PONCE Attending : RAJENDRA PONCE Procedure Note Provider, MD Esdras - 02/26/2017 [facility]/ Carotids Acc#: [id number] DATE OF EXAM: Jul 18 2014 CLINICAL HISTORY: Dizziness. Evaluate for carotid stenosis. RESULT: RIGHT CAROTID ARTERIAL TREE: No significant focal plaque is seen in theright carotid arterial tree. Peak systolic and diastolic velocitymeasurements are normal in the right common and right internal carotidartery. Vertebral flow is antegrade on the right. LEFT CAROTID ARTERIAL TREE: No significant focal plaque is seen in theleft carotid arterial tree. Peak systolic and diastolic velocitymeasurements are normal in the left common and left internal carotidartery. Vertebral flow is antegrade on the left. IMPRESSION: NORMAL STUDY. Interpreting Physician: ЮЛИЯ NEWTON M.D. Read on: Jul 18 2014 2:04P Transcribed by: narda On: Jul 18 2014 6:03P Approved Electronically by: ЮЛИЯ NEWTON M.D. on: Jul 19 2014 7:49A Ordering DR: RAJENDRA PONCE Attending : RAJENDRA PONCE us Historical Provider CV VASCULAR PROCEDURES Fi nal Result documented in this encounter Visit Diagnoses Diagnosis Dizziness and giddiness documented in this encounter
--- OUTSIDE RECORDS SUMMARY | 2024-10-27 10:57 | XMS_ITS | Encounter Summary ---
Author Organization [facility] Healthcare Address [address] [place] [address] Care Team Providers Care Metal Ceiling Hanger Name Role Phone Hung Pereira CRITICAL CARE NURSE Primary Care Provider [phone] Reason for Visit * Reason Comments PT Treatment Encounter Details Date Type Department Care Team (Late st Contact Info) Description 09/26/2020 4:00 PM TAG MARKER Therapy [facility] Physical Therapy [address] [facility] [place] [address] Nae Dia, QUILL MACHINE OPERATOR Cervical spondylosis wthout myelopathy or radiculopathy (Primary Dx) Social History Tobacco Use Types Packs/Day Years Used Date Smoking Tobacco: Every Day Comments No Sex and Gender Information Value Date Recorded Sex Assigned at Not on file 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 Pain: 8/10 l neck/upper back Objective:see treatment below. Palpation: moderate tightness along L UT and cervical spine ROM: Guarding with all ROM Treatment Provided: MHP supine to cervical and upper back x 10 minutes cervical AROM UT stretch cervical/upper thoracic stretch * shoulder rolls * Supine manual stretching to cervical spine Occipital release IASTM to L UT IFC to the left UT, with ice, to aid in decreased pain Treatment will progress to include isometric cervical exercise kinesiotaping as needed UE strengthening. Assessment: Pt tolerates well for treatment. Discussed posture with sitting and working on computer. Plan: cont per POC Start Time: 1600 End Time: 1650 Nae Dia PTA MARKER documented in this encounter Plan of Treatment Not on file documented as of this encounter Visit Diagnoses Diagnosis Cervical spondylosis wthout myelopathy or radiculopathy- Primary documented in this encounter Care Teams Metal Ceiling Hanger Relationship Specialty Start Date End Date Hung Pereira NP [address] [facility] [address] [address] ORTIZ B [address] [address] PCP - General 08/07/20 03/25/21 documented as of this encounter
--- OUTSIDE RECORDS SUMMARY | 2024-10-27 10:57 | XMS_ITS | Encounter Summary ---
Author Organization [facility] Address [address] [facility] [address] [place] [address] Care Team Providers Care Coater Slate Name Role Phone Hung Pereira NP Primary Care Provider [phone] Reason for Referral * Consultation (Routine) - Closed Specialty Diagnoses / Procedures Referred By Contac t Referred To Contact Otolaryngology Diagnoses Encounter for other specified [place] [address] [address] Phone: tel: fax: Alyce Bae, DO [address] [place] [address] [place] [address] Phone: tel: fax: Referral ID Status Reason Start Date Expiration Date V isits Requested Visits Authorized [id number] Closed Specialty Services Required 09/03/2020 10/03/2021 1 1 Question Answer Please select the performing region: [facility] [[id number]] Please select the performing department: [facility] [[id number]] # of visits: 1 Comments eval & treat Encounter Details Date Type Department Care Team (Late st Contact Info) Description 09/03/2020 Orders Only [facility] [address] [facility] [address] [place] [phone] [place] [address] [address] Encounter for other specified aftercare (Primary Dx) Social History Tobacco Use Types Packs/Day Years Used Date Smoking Tobacco: Every Day Comments No Sex and Gender Information Value Date Recorded Sex Assigned at Not on file 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 Gender Identity Not on file Sexual Orientation Not on file documented as of this encounter Plan of Treatment Scheduled Referrals Name Type Priority Associated Diagnoses Order Schedule Ambulatory referral to ENT Outpatient Referral Routine Encounter for other specified aftercare Expected: 09/10/2020 (Approximate), Expires: 09/03/2021 documented as of this encounter Visit Diagnoses Diagnosis Encounter for other specified aftercare- Primary documented in this encounter Care Teams Coater Slate Relationship Specialty Start Date End Date Hung Pereira NP [address] [facility] [address] [place] [address] PCP - General 08/07/20 03/25/21 documented as of this encounter
--- OUTSIDE RECORDS SUMMARY | 2024-10-27 10:57 | XMS_ITS | Encounter Summary ---
Author Organization [facility] Healthcare Address [address] [place] [address] Care Team Providers Care Rn Lactation Name Role Phone Tre Rodriguez MD Primary Care Provider [phone] Reason for Referral * Diagnostic Imaging (Routine) - Closed Specialty Diagnoses / Procedures Referred By Contac t Referred To Contact Radiology Diagnoses Cervicalgia Procedures MRI Cervical Spine WO Contrast Loreta David NP [address] [place] [address] DR ANGEL Auguste [address] [address] Phone: tel: fax: [address] [phone] Referral ID Status Reason Start Date Expiration Date Visits Re quested Visits Authorized [id number] Closed 05/20/2020 11/29/2021 1 1 * Diagnostic Imaging (Routine) - Closed Specialty Diagnoses / Procedures Referred By Contac t Referred To Contact Radiology Diagnoses Left shoulder pain, unspecified chronicity Procedures MRI Shoulder Left WO Contrast Loreta David NP [address] [place] [address] DR ANGEL Auguste [address] [address] Phone: tel: fax: [address] [phone] Referral ID Status Reason Start Date Expiration Date Visits Re quested Visits Authorized [id number] Closed 05/20/2020 11/29/2021 1 1 Reason for Visit * Diagnostic Imaging (Routine) - Closed Specialty Diagnoses / Procedures Referred By Contac t Referred To Contact Radiology Diagnoses Left shoulder pain, unspecified chronicity Procedures MRI Shoulder Left WO Contrast Loreta David NP [address] [facility] [address] ANGEL Auguste [facility] [address] [place] [address] Phone: tel: fax: [address] [phone] Referral ID Status Reason Start Date Expiration Date Visits Re quested Visits Authorized [id number] Closed 05/20/2020 11/29/2021 1 1 Encounter Details Date Type Department Care Team (Latest Contact Info) Description 08/05/2020 3:30 PM CDT - 08/05/2020 11:59 PM CDT Hospital Encounter [facility] [address] [place] [id number] Brandon Dumont MD [address] [facility] [address] ANGEL Auguste [facility] [address] [place] [address] Loreta David NP [address] [facility] [address] ANGEL Auguste [facility] [address] [place] [address] Left shoulder pain, unspecified chronicity; Cervicalgia Discharge Disposition: Discharge to home or self care Social History Tobacco Use Types Packs/Day Years Used Date Smoking Tobacco: Every Day Comments Unknown Sex and Gender Information Value Date Recorded Sex Assigned at Not on file Legal Sex Female 12:50 AM BI ARCHITECT Gender Identity Not on file Sexual Orientation Not on file documented as of this encounter Medications at Time of Discharge diazePAM (VALIUM) 5 mg tablet Take 1 tablet (5 mg total) by mouth 3 (three) times a day as needed 02/28/2017 tapentadol ER (NUCYNTA ER) 100 mg 12 hr tablet Take 1 tablet (100 mg total) by mouth 2 times daily 01/26/2017 HYDROcodone-ibup rofen (VICOPROFEN) 7.5-200 mg per tablet Take 1 tablet by mouth every 6 (six) hours as needed 07/20/2020 1 metroNIDAZOLE (METROGEL) 0.75 % vaginal gel INSERT 1 APPLICATORFUL VAGINALLY QHS 06/27/2020 1 naproxen (NAPROSYN) 500 mg tablet TK 1 T PO BID 07/29/2020 0 traMADoL (ULTRAM) 50 mg tablet Take 50 mg by mouth every 6 (six) hours as needed 12/24/2019 1 documented as of this encounter Discharge Disposition Disposition Code Departure Means Destination Discharge to home or self care documented in this encounter Plan of Treatment Not on file documented as of this encounter Procedures Procedure Name Priority Date/Time Associated Diagnosis Comments MRI SHOULDER LEFT WO CONTRAST Schedule Routine, Read Routine (OP Routine) 08/05/2020 4:49 PM CDT Left shoulder pain, unspecified chronicity MRI CERVICAL SPINE WO CONTRAST Schedule Routine, Read Routine (OP Routine) 08/05/2020 4:18 PM CDT Cervicalgia documented in this encounter Results * MRI Shoulder Left WO Contrast (08/05/2020 4:49 PM CDT) Anatomical Region Laterality Modality Upper Extremities Left Magnetic Reson ance 08/05/2020 4:07 PM CDT Impressions 08/06/2020 6:02 AM CDT 1. ??Mild insertional tendinopathy of the superior subscapularis and anterior supraspinatus without discrete rotator cuff tear. ??There is severe intra-articular biceps tendinopathy as it exits the bicipital groove. 2. ??Degenerative fraying of the left anterior glenoid labrum at the 3 o'clock position with underlying full-thickness chondrosis at the anterior chondrolabral junction with subchondral edema and cyst formation. 3. ??Mild left acromioclavicular joint osteoarthritis with subacromial subdeltoid bursitis. THIS IS AN ELECTRONICALLY VERIFIED FINAL REPORT 08/06/2020 5:59 AM - Electronically signed by Jatinder Gaffney MF: [email or web address] D: ??08/06/2020 5:59 AM T: ??08/06/2020 5:59 AM Report ID: [id number] Reading Location: ??[id number] Narrative 08/06/2020 6:02 AM CDT [facility] ?Imaging Result Name: JOSELYN ARGUELLO ? Ordering Phys: LORTEA DAVID Age: 59 ?Date of : 1960 ? Accession Number: [id number] Date of Service: 08/05/2020 ??Gender: F EXAM DESCRIPTION: ?? MRI SHOULDER LEFT WO CONTRAST REASON FOR STUDY: ?? PAIN IN LEFT SHOULDERDx: Left shoulder pain, unspecified chronicitypost MVADuration: 7 months TECHNIQUE: ??Multiplanar, multisequence MRI of the ??left shoulder was performed. COMPARISON: ?? None available ??Type 2 acromion is present. ??The coracoacromial ligament is thin. There is mild acromioclavicular joint osteoarthritis. ??There is mild subacromial subdeltoid bursitis. The rotator cuff muscle bulk is normal. ??There is mild insertional tendinopathy of the superior subscapularis. ??There is mild insertional tendinopathy of the supraspinatus. ??A discrete rotator cuff tear is not identified. On this non arthrographic evaluation, the bicipital anchor and superior glenoid labrum are intact. ??There is degenerative fraying of the anterior glenoid labrum at the 3 o'clock position. ??There is full thickness chondrosis at the anterior glenoid chondrolabral junction with underlying subchondral edema and subchondral cyst formation. ??A physiologic amount of fluid is present within the shoulder. ??No loose bodies are identified. ??There is severe intra-articular biceps tendinopathy as it exits the bicipital groove. Procedure Note Jatinder Gaffney MD - 08/06/2020 [facility] Imaging Result Name: JOSELYN ARGUELLO Ordering Phys: LORETA DAVID Age: 59 Date of : 1960 Accession Number: [id number] Date of Service: 08/05/2020 Gender: F EXAM DESCRIPTION: MRI SHOULDER LEFT WO CONTRAST REASON FOR STUDY: PAIN IN LEFT SHOULDERDx: Left shoulder pain,unspecified chronicitypost MVADuration: 7 months TECHNIQUE: Multiplanar, multisequence MRI of the left shoulder was performed. COMPARISON: None available Type 2 acromion is present. The coracoacromial ligament is thin. There is mild acromioclavicular joint osteoarthritis. There is mild subacromial subdeltoid bursitis. The rotator cuff muscle bulk is normal. There is mild insertional tendinopathy of the superior subscapularis. There is mild insertional tendinopathy of the supraspinatus. A discrete rotator cuff tear is not identified. On this non arthrographic evaluation, the bicipital anchor and superior glenoid labrum are intact. There is degenerative fraying of theanterior glenoid labrum at the 3 o'clock position. There is full thicknesschondrosis at the anterior glenoid chondrolabral junction with underlyingsubchondral edema and subchondral cyst formation. A physiologic amount of fluid is present within the shoulder. No loose bodies are identified. There issevere intra-articular biceps tendinopathy as it exits the bicipital groove. IMPRESSION: 1. Mild insertional tendinopathy of the superior subscapularis andanterior supraspinatus without discrete rotator cuff tear. There is severe intra-articular biceps tendinopathy as it exits the bicipital groove. 2. Degenerative fraying of the left anterior glenoid labrum at the 3o'clock position with underlying full-thickness chondrosis at the anterior chondrolabral junction with subchondral edema and cyst formation. 3. Mild left acromioclavicular joint osteoarthritis with subacromial subdeltoid bursitis. THIS IS AN ELECTRONICALLY VERIFIED FINAL REPORT 08/06/2020 5:59 AM - Electronically signed by Jatinder Gaffney MF: ESTEBAN Report ID: [id number] Reading Location: [id number] Loreta David NP IMG MRI PROCEDURES Final Resu lt * MRI Cervical Spine WO Contrast (08/05/2020 4:18 PM CDT) Anatomical Region Laterality Modality Spine N/A Magnetic Resonan ce 08/05/2020 3:34 PM CDT Impressions 08/06/2020 8:09 AM CDT 1. ??No acute compression fracture in the cervical spine. 2. ??Multilevel cervical spondylotic changes as described. ??The spinal canal narrowing is most noticeable at C6-C7 where there is mild stenosis. 3. ??Varying degrees of neural foraminal narrowing as above. THIS IS AN ELECTRONICALLY VERIFIED FINAL REPORT 08/06/2020 8:06 AM - Electronically signed by Graeme Tracy D.O. AP: BRIGIDO D: ??08/06/2020 8:05 AM T: ??08/06/2020 8:06 AM Report ID: [id number] Reading Location: ??[id number] Narrative 08/06/2020 8:09 AM CDT [facility] ?Imaging Result Name: JOSELYN ARGUELLO ? Ordering Phys: LORETA DAVID Age: 59 ?Date of : 1960 ? Accession Number: [id number] Date of Service: 08/05/2020 ??Gender: F EXAM DESCRIPTION: ?? MRI CERVICAL SPINE WO CONTRAST REASON FOR STUDY: ?? CERVICALGIADx: CervicalgiaNeck and left shoulder painDuration: 7 months TECHNIQUE: ??Sagittal and Axial imaging includes T1, T2, STIR and gradient echo sequences. COMPARISON: ?? None. ??Multiple of the sequences are degraded by motion. ALIGNMENT: ??Anterior posterior alignment is maintained. VERTEBRAE: ??No acute compression fracture in the cervical spine. ??Multilevel cgxr-zd-nroebmcj endplate degenerative changes and marginal spurring. DISCS: ??Multilevel mild disc desiccation and height loss. HARDWARE: ??None in the spine. CORD: ??Grossly within normal limits, assessment degraded by motion. INDIVIDUAL LEVELS: C2-C3: Posterior disc osteophyte complex and thickened ligamentum flavum. ??No significant spinal canal or neural foraminal narrowing. ??There is bilateral facet arthropathy. C3-C4: Posterior disc osteophyte complex and thickened ligamentum flavum. ??No significant spinal canal or neural foraminal narrowing. ??There is bilateral facet arthropathy. C4-C5: Posterior disc osteophyte complex indents the ventral thecal sac. Minor thickened ligamentum flavum. ??Spinal canal remains patent. Uncovertebral spurring and facet arthropathy resulting in mild bilateral neural foraminal narrowing, right greater than left. C5-C6: Posterior disc osteophyte complex eccentric towards the right and thickened ligamentum flavum. ??No significant spinal canal narrowing. Uncovertebral spurring and facet arthropathy resulting in mild bilateral neural foraminal narrowing. C6-C7: Posterior disc osteophyte complex and thickened ligamentum flavum. Mild spinal canal narrowing. ??Uncovertebral spurring and facet arthropathy resulting in with probable vnge-ih-bqpcqqsu bilateral neural foraminal narrowing but assessment degraded by motion. C7-T1: Posterior disc osteophyte complex and thickened ligamentum flavum. ??No significant spinal canal or neural foraminal narrowing. UPPER THORACIC: ??Incompletely imaged. No high-grade spinal canal narrowing. Procedure Note Graeme Tracy DO - 08/06/2020 [facility] Imaging Result Name: KARONJuancarlos JOSELYN L Ordering Phys: LORETA RCYou Age: 59 Date of : 1960 Accession Number: [id number] Date of Service: 08/05/2020 Gender: F EXAM DESCRIPTION: MRI CERVICAL SPINE WO CONTRAST REASON FOR STUDY: CERVICALGIADx: CervicalgiaNeck and left shoulder painDuration: 7 months TECHNIQUE: Sagittal and Axial imaging includes T1, T2, STIR and gradientecho sequences. COMPARISON: None. Multiple of the sequences are degraded by motion. ALIGNMENT: Anterior posterior alignment is maintained. VERTEBRAE: No acute compression fracture in the cervical spine.Multilevel laxj-nd-mjxjxpoz endplate degenerative changes and marginal spurring. DISCS: Multilevel mild disc desiccation and height loss. HARDWARE: None in the spine. CORD: Grossly within normal limits, assessment degraded by motion. INDIVIDUAL LEVELS: C2-C3: Posterior disc osteophyte complex and thickened ligamentum flavum.No significant spinal canal or neural foraminal narrowing. There isbilateral facet arthropathy. C3-C4: Posterior disc osteophyte complex and thickened ligamentum flavum.No significant spinal canal or neural foraminal narrowing. There isbilateral facet arthropathy. C4-C5: Posterior disc osteophyte complex indents the ventral thecal sac. Minor thickened ligamentum flavum. Spinal canal remains patent. Uncovertebral spurring and facet arthropathy resulting in mild bilateral neural foraminal narrowing, right greater than left. C5-C6: Posterior disc osteophyte complex eccentric towards the right and thickened ligamentum flavum. No significant spinal canal narrowing. Uncovertebral spurring and facet arthropathy resulting in mild bilateral neural foraminal narrowing. C6-C7: Posterior disc osteophyte complex and thickened ligamentumflavum. Mild spinal canal narrowing. Uncovertebral spurring and facetarthropathy resulting in with probable ihpu-xc-ciecrvzt bilateral neural foraminal narrowing but assessment degraded by motion. C7-T1: Posterior disc osteophyte complex and thickened ligamentum flavum.No significant spinal canal or neural foraminal narrowing. UPPER THORACIC: Incompletely imaged. No high-grade spinal canalnarrowing. IMPRESSION: 1. No acute compression fracture in the cervical spine. 2. Multilevel cervical spondylotic changes as described. The spinalcanal narrowing is most noticeable at C6-C7 where there is mild stenosis. 3. Varying degrees of neural foraminal narrowing as above. THIS IS AN ELECTRONICALLY VERIFIED FINAL REPORT 08/06/2020 8:06 AM - Electronically signed by Graeme Tracy D.O. AP: AP Report ID: [id number] Reading Location: [place] [address] Loreta David CHANNEL INSTALLER IMG MRI PROCEDURES Final Resu lt documented in this encounter Visit Diagnoses Diagnosis Left shoulder pain, unspecified chronicity Cervicalgia documented in this encounter Care Teams Rn Lactation Relationship Specialty Start Date End Date Tre Rodriguez MD PCP - General 01/17/17 08/06/20 documented as of this encounter
--- OUTSIDE RECORDS SUMMARY | 2024-10-27 10:57 | XMS_ITS | Encounter Summary ---
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
--- OUTSIDE RECORDS SUMMARY | 2024-10-27 10:57 | XMS_ITS | Encounter Summary ---
Author Organization [facility] Healthcare Address [address] [place] [address] Care Team Providers Care Real Estate Assessor Name Role Phone Brandon Chavez MD Primary Care Provider [phone] Reason for Visit * Reason Comments Abdominal Pain Encounter Details Date Type Department Care Team (Latest Contact Info) Description 05/12/2021 3:30 PM CDT - 05/12/2021 5:15 PM CDT Surgery [facility] Operating Room [address] [place] [address] Nunu Steen MD [address] [place] [id number] ENDO ENDOSCOPIC RETROGRADE CHOLANGIOPANCREATOGRAPHY SPHINCTEROTOMY/PAPILLOTOMY Surgery Details Date/Time Status Location OR Service Patient Class Case Class Case Type Trauma Case? 05/12/2021 3:30 PM Posted [facility] OR Gastroenterology Inpatient Urgent - 24 hours Panel 1 Procedure LRB Anes Op Region Wound Class Comments ENDO ENDOSCOPIC RETROGRADE CHOLANGIOPANCREATOGRAPHY SPHINCTEROTOMY/PAPILLOTOMY N/A General Surgeon Surgeon Role Service Panel Nunu Seten MD Primary Gastroenterology 1 documented in this encounter Social History Tobacco Use Types Packs/Day Years Used Date Smoking Tobacco: Former Cigarettes Smokeless Tobacco: Never Comments:quit 2019 Alcohol Use Standard Drinks/Week Comments Not Currently 0 (1 standard drink = 0.6 oz pur e alcohol) Comments No Sex and Gender Information Value Date Recorded Sex Assigned at Not on file Legal Sex Female 12:50 AM EP SPECIALIST Gender Identity Not on file Sexual Orientation Not on file documented as of this encounter Last Filed Vital Signs Vital Sign Reading Time Taken Comments Blood Pressure 167/97 05/12/2021 4:55 PM CDT Pulse 58 05/12/2021 4:55 PM CDT Temperature 36.3 ??C (97.4 ??F) 05/12/2021 4:01 PM CD T Respiratory Rate 14 05/12/2021 4:55 PM CDT Oxygen Saturation 93% 05/12/2021 4:55 PM CDT Inhaled Oxygen Concentration - - Weight 67 kg (147 lb 11.3 oz) 05/11/2021 8:17 AM CDT Height 165.1 cm (5' 5 ) 05/12/2021 1:54 PM CDT Body Mass Index 24.58 05/11/2021 8:17 AM CDT documented in this encounter Discharge Summaries * Nakia Kirk MD - 05/14/2021 3:34 PM CDT Inpatient Discharge Summary BRIEF OVERVIEW Admitting Provider: Erin Finley DO Discharge Provider: Nunu Steen MD Primary Care Physician at Discharge: Brandon Chavez MD [phone] Admission Date: 05/10/2021 Discharge Date: 05/14/2021 Admission Location: [facility] Problems/Diagnoses: Principal Problem: Cholecystitis Active Problems: Lumbar radiculopathy Menopause present Anxiety Abnormality of rectum Elevated liver enzymes Choledocholithiasis with acute cholecystitis Uterine leiomyoma Resolved Problems: No resolved hospital problems. DETAILS OF HOSPITAL STAY Presenting Problem/History of Present Illness: Joselyn Arguello??is a 60 y.o.??y/o female??with PMH of [...] Rate: 58 bpm RR Interval: 1034 msec VT Interval: 178 msec QRS Duration: 87 msec QT Interval: 425 msec QTC Interval: 421 msec P-R-T Luther: 37 - 72 - 31 degrees SINUS BRADYCARDIA BORDERLINE ECG Electronically Signed By: Dr Stepan Zarco ?? CT Abdomen Pelvis W Contrast ?? Result Date: 05/10/2021 Narrative: EXAM DESCRIPTION: CT ABDOMEN PELVIS W CONTRAST REASON FOR STUDY: h/o cholelithiasis andbiliary colic presents for epigastric and right upper [...] without oral contrast using helical scanning technique withdynamic intravenous contrast injection. Reconstructed coronal and sagittal MPR images reviewed. Allimages stored on PACS. Automated exposure control was used as a dose optimization technique for this examination. CONTRAST TYPE/DOSE: 100ml of 350 optiray [...] 4 mm in diameter. This likely reflects choledoc holithiasis. SPLEEN: Normal size. No focal lesions. PANCREAS: No identified cystic or solid masses.No significant calcifications. No adjacent inflammation or peripancreatic fluid collections. Pancreatic duct not dilated. ADRENALS: Normal. KIDNEYS/URINARY TRACT: No identified significant cystic or solid masses. No visualized stones. No hydronephrosis or hydroureter. Symmetric enhancement. Urinarybladder is unremarkable. GI: No dilated loops of bowel to indicate obstruction. No evidence for appendicitis. Circumferential rectal wall thickening. PERITONEUM: No ascites or free air. RETROPERITONEUM: No mass or adenopathy. REPRODUCTIVE: Enlarged, fibroid replaced uterus. 6.9 cm mass right pelvislikely a pedunculated fibroid. VASCULATURE: No abdominal aortic [...] fibroid replaced uterus 5. 6.9 cmmass right pelvis- pedunculated fibroid favored over a adnexal mass but this could be confirmed withnonemergent pelvic ultrasound or MR. THIS IS AN ELECTRONICALLY VERIFIED FINAL REPORT 05/10/2021 12:22PM - Electronically signed by Angle Castro M.D. : TRE T: 05/10/2021 12:22 PM Report ID: [id number] Reading Location: [id number] ?? XR Chest 1 Vw Portable ?? [...] Priscilla Quarles D.O. PS: PS Report ID: [id number] Reading Location: [id number] ? Microbiology: 05/10/2021 COVID 19:Negative Discharge Details [...] take with other NSAIDs Commonly known as: DYAN ondansetron ODT 8 mg disintegrating tablet Take [...] Specialty: General Surgery Relationship: Consulting Physician [address] [facility] [address] MARLA FRAG[address] [place] [address] Next Steps: Follow up Instructions: Within one week Questions: Instructions for follow-up (appointment date and time): Within one week To provider: JESS MOSS Bryan, MD Specialty: Family Medicine Relationship: PCP - General [address] [facility] [address] FRAGOS[address] [place] [address] Next Steps: Follow up Instructions: Within 2 weeks Questions: To provider: BRANDON CHAVEZ Instructions for follow-up (appointment date and time): Within 2 weeks Nunu Steen MD Specialty: Gastroenterology, Internal Medicine Relationship: Consulting Physician [address] [facility] [address] [place] [address] Next Steps: Follow up Instructions: Within 2-3 [...] through Care Everywhere. * Hydralazine (By mouth) (Bahamian) * Laparoscopic Cholecystectomy (Discharge Care) (Bahamian) documented in this encounter Medications at Time [...] this encounter Progress Notes * Alla Karimi, [facility] - 05/14/2021 3:41 PM CDT SW met [...] SW offered business card and encouraged Pt toreach out if she ever felt overwhelmed, depressed or just needed someone to talk with. Pt agreed tounderstand and accepted the business card. Barriers to change - none identified at this time. Referral to Treatment What are the next steps? What is the treatment plan? When is their appointment? What resources were given? Based on the scores of Pt's screenings, she is not a candidate for the SBIRT program. SW completed the screening tools and SO GPRA. SW will scan to [facility]. * Montse Bender [facility] - 05/14/2021 9:40 AM CDT This medication, [...] for antibiotics on discharge. Voice recognition software Genapsys Direct was used dictate and transcribe this document. Cosmetology Teacher variances may occur. Despite proofreading, typographical errors may occur. Nunu Steen MD * Nakia Kirk MD - 05/13/2021 2:11 PM CDT [facility] Hospitalist Service Progress Note Patient Name: Joselyn Arguello Patient : 1960 Age/Sex: 60 y.o. female Room/Bed: [place] [address]/[place] [address] Admission Date/Time: 05/10/2021 11:04 AM Date: 05/13/2021 Time: 2:11 PM Chief Complaint: Abdominal pain Joselyn Arguello is a 60 y.o. y/o female [...] Rate: 58 bpm RR Interval: 1034 msec VT Interval: 178 msec QRS Duration: 87 msec QT Interval: 425 msec QTC Interval: 421 msec P-R-T Luther: 37 - 72 - 31 degrees SINUS [...] lesions. PANCREAS: No identified cystic or solid masses.No significant calcifications. No adjacent inflammation or peripancreatic fluid collections. Pancreatic duct not dilated. ADRENALS: Normal. KIDNEYS/URINARY TRACT: No identified significant cystic or s olid masses. No visualized stones. No hydronephrosis or hydroureter. Symmetric enhancement. Urinarybladder is unremarkable. GI: No dilated loops of bowel to indicate obstruction. No evidence for appendicitis. Circumferential rectal wall thickening. PERITONEUM: No ascites or free air. RETROPERITONEUM: No mass or adenopathy. REPRODUCTIVE: Enlarged, fibroid replaced uterus. 6.9 cm mass right pelvislikely a pedunculated fibroid. VASCULATURE: No abdominal aortic [...] fibroid replaced uterus 5. 6.9 cmmass right pelvis- pedunculated fibroid favored over a adnexal mass but this could be confirmed withnonemergent pelvic ultrasound or MR. THIS IS AN ELECTRONICALLY VERIFIED FINAL REPORT 05/10/2021 12:22PM - Electronically signed by Angle Castro M.D. : T: 05/10/2021 12:22 PM Report ID: [id number] Reading Location: [place] [address] XR Chest 1 Vw Portable Result Date: [...] Priscilla Quarles D.O. PS: PS Report ID: [id number] Reading Location: [id number] Microbiology: 05/10/2021 COVID 19:Negative ASSESSMENT AND PLAN: [...] DVT PPx Lovenox MDM: Moderate complexity Nakia Kirk.MD Internal Medicine - Hospitalist [facility] Hospitalist Service 05/13/2021 2:11 PM [...] discontinue antibiotics after today. Voice recognition software MMInstantQ Fluency Direct was used dictate and transcribe this document. Cosmetology Teacher variances may occur. Despite proofreading, typographical errors may occur. Nunu Steen MD * Elizondo, Janet Ibarra, RD - 05/13/2021 8:55 AM CDT Nutrition [...] found for: HGBA1C POC Glucose: Results for JOSELYN ARGUELLO ( ) as of 05/13/2021 09:02 [...] Source of Transportation: sister Health [facility] Choice Prescription Coverage: yes Pharmacy: [facility] [address] Primary Care Provider: Brandon Chavez MD Prior [...] story) Number of steps outside:: 4 steps (05/12/211105) Potential discharge needs include: Behavioral Health Services: Behavioral Health Services: No (05/12/211105) Patient expects to be Discharged to: Private [...] Kirk MD - 05/12/2021 10:24 AM CDT [facility] Hospitalist Service Progress Note Patient Name: Joselyn Arguello Patient : 1960 Age/Sex: 60 y.o. female Room/Bed: [id number] Admission Date/Time: 05/10/2021 11:04 AM Date: 05/12/2021 Time: 10:49 AM Chief Complaint: Abdominal pain Joselyn Arguello is a 60 y.o. y/o female [...] 125 mL/hr, Last Rate: 125 mL/hr (05/11/21 6805) PRN Meds:cyclobenzaprine ??? diazePAM ??? docusate sodium [...] Rate: 58 bpm RR Interval: 1034 msec VT Interval: 178 msec QRS Duration: 87 msec QT Interval: 425 msec QTC Interval: 421 msec P-R-T Luther: 37 - 72 - 31 degrees SINUS [...] Electronically signed by Angle Castro M.D. : TRE Report ID: [id number] Reading Location: [id number] XR Chest 1 Vw Portable Result Date: [...] Priscilla Quarles D.O. PS: PS Report ID: [id number] Reading Location: [id number] Microbiology: 05/10/2021 COVID 19:Negative ASSESSMENT AND PLAN: [...] Nakia Car MD Internal Medicine - Hospitalist [facility] Hospitalist Service 05/12/2021 10:49 AM * Stepan Phelps Jr., MD - 05/11/2021 3:56 PM CDT [facility] Hospitalist Service Progress Note Patient Name: Joselyn Arguello Patient : 1960 Age/Sex: 60 y.o. female Room/Bed: [place] [address] [address] Admission Date/Time: 05/10/2021 11:04 AM Date: 05/11/2021 [...] Vitals: 05/11/21 1105 05/11/21 1129 05/11/21 1228 05/11/21 1500 BP: 125/67 135/85 136/90 124/77 BP [...] by Angle Castro M.D. : Report ID: [id number] Reading Location: [id number] XR Chest 1 Vw Portable Result Date: [...] Priscilla Quarles D.O. PS: PS Report ID: [id number] Reading Location: [id number] Microbiology: 05/10/2021 13:11 COVID-19 RNA Negative ASSESSMENT [...] Phelps Jr., MD Internal Medicine - Hospitalist [facility] Hospitalist Service 05/11/2021 3:56 PM documented in this encounter H&P Notes * Stepan Phelps Jr., MD - 05/10/2021 4:09 PM CDT [facility] Adult Hospitalist Service History and Physical Patient Name: Joselyn Arguello Patient : 1960 Age/Sex: 60 y.o. female Room/Bed: [id number] Admission Date/Time: 05/10/2021 11:04 AM Date: 05/10/2021 Time: 4:09 PM Primary Care Physician: Brandon Chavez MD PCP Office Location: [address] [place] [address] PCP Chief Complaint: abdominal pain HPI: Joselyn Arguello is a 60 y.o. y/o female [...] by Angle Castro M.D. : Report ID: [id number] Reading Location: [id number] XR Chest 1 Vw Portable Result Date: [...] Priscilla Quarles D.O. PS: PS Report ID: [id number] Reading Location: [place] [address] ASSESSMENT AND PLAN: Principal Problem: Cholecystitis Active [...] Phelps Jr., MD Internal Medicine - Hospitalist [facility] Hospitalist Service CC: Brandon Chavez MD documented in this encounter Procedure Notes * Nunu Steen MD - 05/12/2021 2:37 PM CDTAssociated Order(s): ERCP [facility] Patient Name: Joselyn Arguello Procedure Date: 05/12/2021 2:37 PM Date of : 1960 Admit Type: Inpatient Age: 60 Gender: Female Attending MD: Nunu Steen M.D. Room: [place] [address] Note Status: Finalized Patient Profile: This is [...] consent was obtained. The Endoscope ERCP [id number] was introduced through the mouth, and used to inject contrast into and used to inject contrast into the bile duct. The ERCP was accomplished without difficulty. The patient tolerated the procedure well. Findings: The head bucker film was normal. A standard esophagogastroduodenoscopy scope [...] 2:37 PM Procedure Code(s): --- Professional --- 31226, Endoscopic retrograde cholangiopancreatography (ERCP); with sphincterotomy/papillotomy Diagnosis Code(s): --- Professional --- K80.50, Calculus of bile duct without cholangitis or cholecystitis without obstruction R74.8, Abnormal levels of other serum enzymes CPT copyright 2019 [employer]. All rights reserved. The codes documented in this report are preliminary and upon personal counselor review may be revised to meet current compliance requirements. Recognized by the [employer] for promoting quality [...] DVT and GI prophylaxis. Voice recognition software Genapsys Direct was used dictate and transcribe this document. Cosmetology Teacher variances may occur. Despite proofreading, typographical errors may occur. Nunu Steen MD * Jess Moss MD - 05/11/2021 8:44 AM CDTAssociated Order(s): IP CONSULT TO GENERAL SURGERY Surgery Consult Subjective: Patient Name: Joselyn Arguello Date of Consult: 05/11/21 HPI: Joselyn Arguello is a 60 y.o. female presenting [...] mg, intravenous, Q3H PRN, 0.5 mg at 05/11/[address]40 ??? Lactated Ringer's (LR) infusion, 125 mL/hr, [...] 2020 ??? Gall stones ??? Hot flashes Past [...] Gatherings with Friends and Family: ??? Attends Taoism Services: ??? Active Member of Clubs or [...] discharged with patient. Transported per wheelchair to [facility] [place] where grandson picked up. documented in this encounter ED Notes * Bindu Landers MD - 05/10/2021 11:38 AM CDT Triage Chief Complaint: Chief Complaint Patient presents with ??? Abdominal Pain Portions of the record may have been created with voice recognition software. Occasional wrong-word or 'lrwmv-[id number]' substitutions may have occurred due to the inherent limitations of voice recognition software. Read the chart carefully and recognize, using context, where substitutions have occurred. H&P: Joselyn Arguello is a 60 y.o. female with [...] by myself in the absence of a historical guide) Sinus rhythm with a rate of 58, [...] as of May 10 1307 Time: 05/10 125 Comment: Dr. Moss agrees to consult on patient. Would take her to the OR tomorrow and could do cholangiogram at that time. We do not have GI today or tomorrow but he should be back Tuesday. So hesaid that he thinks it would be appropriate for patient to be admitted at this hospital. By: Bindu Landers MD Time: 05/10 1304 Comment: Spoke to who agrees to admit patient By: Bindu Landers MD Clinical Impression: 1. Cholecystitis 2. Uterine leiomyoma, unspecified location Disposition: Admit (Please note that portions of this note may have been completed with a voice recognition program. Cosmetology Teacher errors occur. Please contact me for any clarification.) Bindu Landers MD 05/10/21 1307 * Anjali Perry RN - 05/10/2021 10:59 [...] monitor * Plan of Care - Yanni Ruiz RRT - 05/14/2021 3:04 AM CDT Pt currently [...] MD - Primary Anesthesiologist: Zack To MD CENTRAL SUPPLY CLERK: Javier Vizcaino CRNA Endoscopy Nurse: Josefina Funk [...] Tramadol. Had a cough and was given Gabbs. * Plan of Care - Mukul Magdaleno [...] MD - 05/11/2021 9:13 AM CDT NAME: Joselyn Arguello DATE OF : 1960 SURGEON: Jess Moss MD JEWELRY BENCH WORKER:Gas Operations Analyst: Yuliya Masters RN Restaurant Shift Supervisor: Oliver Johnson RT Scrub: Janelle Luong ST [...] An intraoperative cholangiogram was then performed. This demonstrated Some tapering of the distal common bile duct with some delayed transit of contrast into the duodenum. The hepatic radicles could not be filled despite several maneuvers. The contrast started to go up in that direction but again we could not get the bifurcation to denote itself. Next 2 clips were plac ed distally on the cystic duct and the remaining portion of the duct transected. Two clips were then placed proximally and distally on the cystic artery and the artery transected. The gallbladder wasthen dissected off of the gallbladder fossa using spatula cautery. The gallbladder was placed in anEndo-Catch bag and brought out through the 12 mm trocar site. At this time hemostasis was checked and achieved. Clips were in good location. Given the concern for some thickening of the rectum on imaging attention was directed towards the pelvis. The patient was placed head down and the small bowelretracted. The patient had a very large pedunculated mass hanging off of the uterus. This was I left anterior lateral position. There is a further 1 that was in a more posterior direction. The rectumwas grasped elongated. There were no sign of discrete thickening, scarring or mass extending down as low as we could evaluate the rectum. At this time trocars were removed under direct visualization.No bleeding was noted. Pneumoperitoneum was evacuated. The fascia of the 12 mm trocar site was closed with a [id number] 0 Vicryl stitch. Remaining trocars were closed with interrupted 4 Monocrylsubcuticular stitches. Dermabond was then applied. The patient [...] consulted, lap choly planned tomorrow. NPO at MI. IV pain control. * Plan of Care [...] ER when room available. Voice recognition software Genapsys Direct was used to dictate and transcribe this document. Cosmetology Teacher variances may occur. Despite proofreading, typographical errors [...] 2:37 PM CDT HEPATIC FUNCTION PANEL Routine 05/12/2021 4:23 AM CDT SURGICAL PATHOLOGY Routine 05/11/2021 11 :19 AM CDT Cholecystitis CHOLANGIOGRAM INTRAOPERATIVE IP Routine 05/11/2021 9:50 AM CDT COVID-19 CORONAVIRUS RNA Routine 05/10/2021 1:11 PM [...] Results * eGFR (05/14/2021 3:28 AM CDT) [facility] eGFR 54 mL/min/1.7 3 m2 [facility] [...] BLOOD ORDERABLES Final Resu lt [facility] ([place] 1 [facility] Department [place] [address] * Differential, auto (05/14/2021 3:28 AM CDT) [...] Final Resu lt [facility] ([place]) 1 [facility] [place] [place] [address] * Phosphorus (05/14/2021 3:28 AM CDT) Phosphorus, pl 3.5 2.3 - 4.5 mg/dL [facility] Blood specimen (specimen) 05/14/2021 3:28 AM CDT 05/14/2021 3:47 AM CDT Nakia Kirk MD LAB BLOOD ORDERABLES Final Resu lt [facility] ([place]) 1 [facility] [address] [place] [address] * Magnesium (05/14/2021 3:28 AM CDT) Magnesium 1.8 1.4 - 2.5 mg/dL [facility] ([place]) Blood specimen (specimen) 05/14/2021 3:28 AM CDT 05/14/2021 3:47 AM CDT Nakia Kirk MD LAB BLOOD ORDERABLES Final Resu lt [facility] ([place] 1 [facility] Department [place] [address] * (ABNORMAL) Comprehensive metabolic panel (05/14/2021 3:28 [...] Final Resu lt [facility] ([place] 1 [facility] Department [place] [address] * (ABNORMAL) CBC with auto differential (05/14/2021 [...] BLOOD ORDERABLES Final Resu lt [facility] ([place] 1 [facility] Department [place] [address] * (ABNORMAL) Pro B-type natriuretic peptide (05/14/2021 3:27 AM CDT) NT-proBNP 1,344(H) <=300 pg/mL [facility]) Comment: Interpretive Comments: A. Dyspnea in Acute [...] et.al. Eur Heart J. 2006:27:330-337. 2. Singh RW, Mattie POWELL. J. AM Dorothy Cardiol: Cardiovasc Imag. 2009;2: 216- 225. Interpretive Data Last Revised Date: 2018. Blood specimen (specimen) 05/14/2021 3:27 AM CDT 05/14/2021 8:37 AM CDT us Nakia Kirk MD LAB BLOOD ORDERABLES Final Resu lt [facility] 1 [facility] Department of Laboratories [place] [id number] * XR Chest 1 View (05/13/2021 2:02 [...] PM T: ??05/13/2021 2:20 PM Report ID: [id number] Reading Location: ??[id number] Procedure Note Priscilla Quarles DO - 05/13/2021 EXAM DESCRIPTION: XR CHEST [...] Priscilla Quarles D.O. PS: PS Report ID: [id number] Reading Location: [id number] Nakia Kirk MD IMG XR PROCEDURES Final [...] BLOOD ORDERABLES Final Result Performing Organization Address City/[facility]/ZIP Co de Phone Number [facility] ([place] 1 [facility] [address] * Bilirubin, direct (05/13/2021 8:08 AM CDT) Bilirubin, direct <0.2 0.1 - 0.3 mg/dL [facility] ([place]) Blood specimen (specimen) 05/13/2021 8:08 AM CDT 05/13/2021 8:11 AM CDT us Nunu Steen MD LAB BLOOD ORDERABLES Final Result [facility] ([place] 1 [facility] [address] * Differential, auto (05/13/2021 8:08 AM CDT) Neutrophil abs 3.8 1.7 - 6.5 K/cumm [facility] ([place]) Imm gran abs 0.0 0.0 [...] LAB BLOOD ORDERABLES Final Result [facility] ([place] 1 [facility] [place] [address] * Phosphorus (05/13/2021 8:08 AM CDT) Pathologist [facility] Phosphorus, pl 3.1 2.3 - 4.5 mg/dL [facility] Blood specimen (specimen) 05/13/2021 8:08 AM CDT 05/13/2021 8:20 AM CDT Nakia Kirk MD LAB BLOOD ORDERABLES Final Resu lt [facility] ([place] [address] [place] [address] * Magnesium (05/13/2021 8:08 AM CDT) [facility] Magnesium 1.8 1.4 - 2.5 mg/dL [facility]) Blood specimen (specimen) 05/13/2021 8:08 AM CDT 05/13/2021 8:20 AM CDT us Nakia Kirk MD LAB BLOOD ORDERABLES Final Resu lt [facility] ([place] [address] [place] [address] * (ABNORMAL) Comprehensive metabolic panel (05/13/2021 8:08 AM CDT) Pathologist [facility] Sodium 143 135 - 145 mmol/L [facility] ([place]) Potassium, pl 3.7 3.3 - 4.9 mmol/L [facility] Chloride 111(H) 97 - 110 mmol/L [facility] CO2 24 22 - 32 mmol/L [facility] Anion gap 8 2 - 15 mmol/L [facility] BUN 7(L) 8 - 25 mg/dL [facility] Creatinine 1.04 0.60 - 1.10 mg/dL [facility] Glucose 89 70 - 199 [...] ORDERABLES Final Result [facility] 1 [facility] Department [place] [address] * (ABNORMAL) CBC with auto differential (05/13/2021 8:08 AM CDT) WBC 6.8 3.8 - 9.9 K/cumm [facility] Hgb 11.3(L) 11.9 - 15.5 g/dL [facility] Hct 32.2(L) 35.6 - 45.5 % [facility] Plt 151 150 - 400 K/cumm [facility] MPV 9.9 9.1 - 12.3 fL [facility] ([place] RBC 4.10 3.90 - 5.20 M/cumm [facility] MCV 78.5(L) 81.3 - 96.4 fL [facility] MCH 27.6 27.1 - 33.3 pg [facility] MCHC 35.1 32.3 - 35.7 g/dL [facility] RDW CV 14.3 11.1 - 14.9 % [facility] RDW SD 40.9 35.7 - 48.1 fL [facility] NRBC abs 0.00 0.00 - 0.01 K/cumm [facility] (CHRISTI) Blood specimen (specimen) 05/13/2021 8:08 AM CDT 05/13/2021 8:11 AM CDT us Nunu Steen MD LAB BLOOD ORDERABLES Final Result SHAQUILLE [facility]ENNEY (CHRISTI) 1 [facility] Department [place] [address] * FL ERCP (05/12/2021 4:05 PM CDT) [...] John John M.D. DL: DL D: ??05/12/2021 6:17 PM T: ??05/12/2021 6:17 PM Report ID: [id number] Reading Location: ??[id number] Procedure Note John John MD - 05/12/2021 EXAM DESCRIPTION: FL ERCP REASON FOR STUDY: Painless jaundice. Weight loss. Symptoms for greaterthan 3 months. Abnormal gallbladder on CT 05/10/2021. COMPARISON: Intraoperative cholangiogram 05/11/[address] [id number]/10/2021 FLUOROSCOPY TIME/IMAGE COUNT: Fluoro Time: Flouro Time: [...] John John M.D. DL: DL Report ID: [id number] Reading Location: [id number] us Nunu Steen MD IMG FLUOROSCOPY PROCEDURES Final Result * ERCP (05/12/2021 2:37 PM CDT) Anatomical Region Laterality Modality Other Narrative Procedure Note Nunu Steen MD - 05/12/2021 2:37 PM CDT [facility] Patient Name: Joselyn Arguello Procedure Date: 05/12/2021 2:37 PM Date of : 1960 Admit Type: Inpatient Age: 60 Gender: Female Attending MD: Nunu Steen M.D. Room: [place] [address] Note Status: Finalized Patient Profile: This is a 60 year old female. Patient admitted with cholecystitis and gallstones and CT showed possible stone in the common bile duct. Liver enzymes were normal. After cholecystectomy liver enzymesincreased. ERCP today to rule out common bile duct retainedstone Procedure: ERCP Indications: Bile duct stone(s), Elevated liver enzymes Referring MD: Providers: Ahmad A. Karadaghy, M.D. Impression: - Normal upper GI tract. [...] informed consentwas obtained. The Endoscope ERCP [id number] introduced through the mouth, and used to inject contrast into and used to inject contrast into the bile duct. The ERCP was accomplished without difficulty. The patient tolerated the procedurewell. Findings: The head bucker film was normal. A standard esophagogastroduodenoscopyscope was [...] 2:37 PM Procedure Code(s): --- Professional --- 07281, Endoscopic retrograde cholangiopancreatography (ERCP); with sphincterotomy/papillotomy Diagnosis Code(s): --- Professional --- K80.50, Calculus of bile duct without cholangitis or cholecystitis without obstruction R74.8, Abnormal levels of other serum enzymes CPT copyright 2019 [employer]. All rights reserved. The codes documented in this report are preliminary and upon personal counselor reviewmay be revised to meet current compliance requirements. Recognized by the [employer] for promoting quality [...] 4:23 AM CDT 05/12/2021 5:48 AM CDT us Jess Moss MD LAB BLOOD ORDERA BLES Final Result [facility] [address] [place] [address] Department [place] [address] * Surgical pathology (05/11/2021 11:19 AM CDT) Tissue (Gallbladder) 05/11/2021 9:36 AM CDT Narrative PATHOLOGY [facility] - 05/13/2021 11:42 AM CDT EPIC results best viewed via link to PDF [facility] Department of Pathology [address] [place] [id number] Final Report Patient Name: ??JOSELYN ARGUELLODarell Address: ??[address] [place] [address], ??[place], [place] ??[address] Gender: ??F : ??1960 (Age: 60) Service: ??Medical Location: ??[facility] Hospital #: ??[id number] Patient Type: ??[facility] IP Accession # ?[id number] Taken: ??05/11/2021 Received: ??05/12/2021 Accessioned: ??05/12/2021 Reported: [...] is received in a single container labeled Joselyn Arguello and gallbladder . ??It is a gallbladder [...] determined by the Surgical Pathology Department at [facility] as part of an ongoing quality assurance tester program and in compliance with federally mandated [...] characteristics determined by the Surgical Pathology Department [facility]. ??It has not been cleared or approved by the U. S. Food and Drug Administration. Jess Moss MD LAB PATHOLOGY OR DERABLES Final Result [facility] ([place] [address] [place] [address] * [place] Cholangiogram Intraoperative (05/11/2021 [...] John John M.D. DL: HENRI D: ??05/12/2021 6:20 PM T: ??05/12/2021 6:20 PM Report ID: [id number] Reading Location: ??[id number] Procedure Note John John MD - 05/12/2021 [...] signed by John John M.D. DL: HENRI Report ID: [id number] Reading Location: [id number] Jess Moss MD IMG FLUOROSCOPY PROCEDURES Final Result * COVID-19 Coronavirus RNA Nasopharyngeal (05/10/2021 1:11 PM CDT) COVID-19 RNA Negative Negative SHA[facility] ([place]RISTI) Comment: Interpretive data: Synonyms for this test include: PCR and NAAT . ??This test is performed using the [employer] Xpert Xpress assay. This is a real-time [...] [facility] ([facility]) status? No [facility] ([place]) Group care resident? Unknown [facility] ([place]) Hospitalized? Unknown [facility] ([place]) Is patient in ICU? Unknown [facility] ([place]) Symptomatic as defined by CDC? No [facility] ([place]) Nasopharyngeal 05/10/2021 1: 11 PM CDT 05/10/2021 1:18 PM CDT Narrative [facility] ([place]) - 05/10/2021 2:10 PM CDT What is the reason for testing?->Screening prior to urgent surgery, procedure, BMT, immunosuppressive therapy us Bindu Landers MD LAB MICROBIOLOGY - GENER AL ORDERABLES Final Result Performing Organization Address [facility]/ZIP Co de Phone Number SHAQU[facility]LE KENNEY ([place]STI) 1 [facility] Department [place] [address] * (ABNORMAL) Urinalysis reflex to microscopic and [...] PM CDT 05/10/2021 1:18 PM CDT Narrative [facility] ([place]) - 05/10/2021 1:30 PM CDT ?? Urine pH is affected by diet, medications, systemic acid-base disturbances, and renal tubular function. ??pH may affect urinary stone formation. ??For example, urine pH below 6.0 may help reduce the tendency for calcium phosphate stones and pH greater than 6.0 may reduce the tendency for uric acid stone formation. Source: [employer]. Last revised 11-17-2017 us Reji CLIFFORD LAB MICROBIOLOGY - GENERAL O RDERABLES Final Result SHAQUILLE KENNEY ([place]STI) 1 [facility] [place] [address] * CT Abdomen Pelvis W Contrast (05/10/2021 [...] PM T: ??05/10/2021 12:22 PM Report ID: [id number] Reading Location: ??[id number] Procedure Note Angle Castro MD - 05/10/2021 [...] by Angle Castro M.D. : Report ID: [id number] Reading Location: [place] [address] us Bindu Landers MD IM CT PROCEDURES Final Result * XR Chest [...] AM T: ??05/10/2021 11:58 AM Report ID: [id number] Reading Location: ??[id number] Procedure Note Priscilla Quarles, DO - 05/10/2021 EXAM DESCRIPTION: XR CHEST [...] Priscilla Quarles D.O. PS: PS Report ID: [id number] Reading Location: [place] [address] Reji CLIFFORD IMG XR PROCEDURES Final Resu lt * ECG 12 lead (05/10/2021 11:19 AM CDT) 05/10/2021 11:1 9 AM CDT Narrative [facility] - 05/12/2021 8:08 AM CDT Vent Rate: 58 bpm RR Interval: 1034 msec VT Interval: 178 msec QRS Duration: 87 msec QT Interval: 425 msec QTC Interval: 421 msec P-R-T Luther: 37 - 72 - 31 degrees SINUS BRADYCARDIA BORDERLINE ECG Electronically Signed By: Dr Stepan Zarco Reji CLIFFORD ECG ORDERABLES Final Result [facility] * eGFR (05/10/2021 11:16 AM [...] BLOOD ORDERABLES Final R esult [facility] ([place]) 1 [facility] [place] [address] * (ABNORMAL) Differential, auto (05/10/2021 11:16 AM [...] 2018. Imm gran pct 0.3 % [facility] ([place]) Comment: Interpretive Data Percent cell count reference ranges are not reported, since discordance with absolute values may lead to misinterpretation of CBC data. Current Interpretive Data was last revised on 2018. Lymphocyte pct 29.9 % CERNE R ANNE [facility] ([place]STI) Comment: Interpretive Data Percent cell count [...] 2018. Eosinophil pct 6.1 % LENNE R ANNE [facility] ([place]STI) Comment: Interpretive Data Percent cell count [...] Final R esult SHAQUILLE KENNEY ([place]I) 1 [facility] Department of Laboratories [place], [place] [id number] * Troponin T high-sensitivity series (baseline, 2hr, [...] ORDERABLES Final R esult Performing Organization Address City/[facility]/ZIP Co de Phone Number [facility] [address] [place] [address] * Sepsis Lactate w/ Reflex (05/10/2021 11:16 AM CDT) Pathologist [facility] Sepsis Lactate 0.9 0.7 - 2.0 mmol/L [facility]) Blood specimen (specimen) 05/10/2021 11:16 AM CDT 05/10/2021 11:26 AM CDT Reji CLIFFORD LAB BLOOD ORDERABLES Final R esult Performing Organization Address [facility] Co de Phone Number [facility] [address] [place] [address] * Lipase (05/10/2021 11:16 AM CDT) Pathologist [facility] Lipase 20 10 - 99 Units/L [facility]) Blood specimen (specimen) 05/10/2021 11:16 AM CDT 05/10/2021 11:26 AM CDT Reij CLIFFORD LAB BLOOD ORDERABLES Final R esult Performing Organization Address City/[facility] Co de Phone Number [facility] ([place]) [address] [place] [address] * Comprehensive metabolic panel (05/10/2021 11:16 AM [...] CLIFFORD LAB BLOOD ORDERABLES Final R esult [facility] ([place]) 1 [facility] Department [place] [address] * (ABNORMAL) CBC with auto differential (05/10/2021 [...] Final R esult [facility] ([place]) 1 [facility] [place] [address] documented in this encounter Visit Diagnoses Diagnosis [...] with acute cholecystitis without mention of obstruction Cholecystitis Cholecystitis, unspecified Elevated liver enzymes Other nonspecific abnormal serum enzyme levels Choledocholithiasis with acute cholecystitis Calculus of bile duct with acute cholecystitis without mention of obstruction documented in this encounter Admitting Diagnoses Diagnosis [...] mg Le ft Lower Abdomen famotidine (PEPCID) tablet 20 mg 20 mg, [...] Given 05/14/2021 8:50 AM CDT 2 sprays gabapentin (NEURONTIN) capsule 300 mg 300 mg, [...] Given 05/11/2021 5:41 AM CDT 0.5 mg indomethacin (INDOCIN) 50 mg suppository 100 mg 100 mg, rectal, Once, On Tue05/12/21 at 1530, For 1 dose, Intra-Op, Refrigerate Given 05/12/2021 3:23 PM CDT 100 mg iohexoL (OMNIPAQUE) 240 mg iodine/mL injection solution As needed, Starting on Tue05/12/21 at 1543, Intra-Op Given 05/12/2021 3:43 PM CDT 6 mL ipratropium-albuteroL (DUO-NEB) 0.5-2.5 mg/3 mL nebulizer solution 3 mL 3 mL, nebulization, Every 6 hours PRN (vp respiratory), wheezing, shortness of breath, Starting on Tue05/14/21 at 0915, Indications: SOBIndications:SOB loratadine (CLARITIN) tablet 10 mg 10 mg, [...] Given 05/13/2021 8:17 AM CDT 5 mg traMADoL (ULTRAM) tablet 50 mg 50 mg, [...] available)1717 (JAN Unhold - Provider: Automatic Transfer Provider)223 (Given - Provider: Elodia Perry, DEANN) 1950 (Given - Provider: Lupe Larson, DEANN) [...] Paty Quinn, DEANN)194 (Given - Provider: Lupe Larson RN) 0757 (Given - Provider: Julia Moreno RN) famotidine (PEPCID) tablet 20 mg 20 mg, [...] Transfer Provider - Reason: Patient not available)1717 ([facility] Unhold - Provider: Automatic Transfer Provider) 0817 (Not Given - Provider: Paty Quinn RN - Reason: Patient/family refused) 0850 (Given - Provider: Julia Moreno, DEANN) furosemide (LASIX) tablet 20 mg (COMPLETED) 20 mg, oral, Once, On Tue05/14/21 at 1000, For 1 dose 0932 (Given - Provider: Julia Moreno, DEANN) gabapentin (NEURONTIN) capsule 300 mg 300 mg, oral, Nightly, First dose on Tue05/10/21 at 2100, Do not crush, break, or open. 1513 (JAN Hold - Provider: Automatic Transfer Provider - Reason: Patient not available)1717 ([facility] Unhold - Provider: Automatic Transfer Provider)2229 (Given [...] dose, Intra-Op, Refrigerate 1523 (Given - Provider: Linda Larson, DEANN)1530 (Due) ipratropium-albuteroL (DUO-NEB) 0.5-2.5 mg/3 mL nebulizer solution 3 mL (CANCELED) 3 mL, nebulization, 4 times daily (vp respiratory), First dose on Tue05/13/21 at 1500, Indications: SOB 1700 (Given - Provider: Anahi Westfall, TRINI)1913 (Given - Provider: Yanni Ruiz, PIE ICER MACHINE) 0907 (Given - Provider: Anahi Westfall, PIE ICER MACHINE) loratadine (CLARITIN) tablet 10 mg 10 mg, oral, Daily, First dose on Tue05/11/21 at 0900 0916 (Given - Provider: Paty Quinn RN)1513 (JAN Hold - Provider: Automatic Transfer Provider - Reason: Patient not available)1717 (JAN Unhold - Provider: Automatic Transfer Provider) 0817 (Given - Provider: Paty Quinn RN) 0756 (Given - Provider: Julia Moreno, DEANN) oxybutynin (DITROPAN) tablet 5 mg 5 mg, oral, 2 times daily, First dose on 05/10/21 at 2100 0916 (Given - Provider: Paty Quinn RN)1513 (JAN Hold - Provider: Automatic Transfer Provider - Reason: Patient not available)1717 (JAN Unhold - Provider: Automatic Transfer Provider)2230 (Given - Provider: Elodia Perry RN) 0817 (Given - Provider: Paty Quinn RN)1947 (Given - Provider: Lupe Larson, DEANN) 0756 (Given - Provider: Julia Moreno, DEANN) piperacillin-tazobactam (ZOSYN) 3.375 g in sodium chloride 0.9% 50 mL IVPB (CANCELED) 3.375 g, intravenous, at 130 mL/hr, Administer over 30 Minutes, Every 6 hours scheduled, First dose on 05/10/21 at 1330, Indications: Abdominal/Pelvic Infection 0548 (New Bag - Provider: Elodia Perry RN)1238 (New Bag - Provider: Paty Quinn RN)1513 ([facility] Hold - Provider: Automatic Transfer Provider - Reason: Patient not available)1717 ([facility] Unhold - Provider: Automatic Transfer Provider)1808 (New Bag - Provider: Paty Quinn RN)2356 (New Bag - Provider: Elodia Perry RN) 0551 (New Bag - Provider: Elodia Perry RN)1157 (New Bag - Provider: Paty Quinn, DEANN)1736 (New Bag - Provider: Paty Quinn RN) 0037 (New Bag - Provider: Lupe Larson, DEANN)0536 (New Bag - Provider: Lupe Larson, DEANN) venlafaxine (EFFEXOR) tablet 75 mg 75 mg, oral, Nightly, First dose on 05/10/21 at 2100 1513 (JAN Hold - Provider: Automatic Transfer Provider - Reason: Patient not available)171 (JAN Unhold - Provider: Automatic Transfer Provider)2229 [...] Vizcaino CRNA)1652 (New Bag - Provider: Penny Maria, DEANN)1654 (Not Given - Provider: Penny Maria RN - Reason: Other) sodium chloride 0.9% infusion (CANCELED) 75 mL/hr, intravenous, Continuous, Starting on Tue05/12/21 at 1945 2235 (New Bag - Provider: Elodia Perry RN) 0550 (New Bag - Provider: Elodia Perry RN)1055 (Rate/Dose Change - Provider: Paty Quinn, RN)1232 (Rate/Dose Change - Provider: Paty Quinn, RN)2220 (New Bag - Provider: Lupe Larson, DEANN) PRN Medication Order 05/12/2021 05/13/2021 05/14/2021 cyclobenzaprine (FLEXERIL) tablet 10 mg 10 mg, oral, 3 times daily PRN, muscle spasms, Starting on 05/10/21 at 1607 1513 (JAN Hold - Provider: Automatic Transfer Provider - Reason: Patient not available)1717 ([facility] Unhold - Provider: Automatic Transfer Provider) diazePAM (VALIUM) tablet 5 mg 5 mg, oral, Every 8 hours PRN, anxiety, Starting on 05/10/21 at 1607 1513 ([facility] Hold - Provider: Automatic Transfer Provider - Reason: Patient not available)1716 ([facility] Unhold - Provider: Automatic Transfer Provider) docusate sodium (COLACE) capsule 100 mg 100 mg, oral, 2 times daily PRN, constipation, Starting on 05/10/21 at 1357, Indications: constipation 1513 ([facility] Hold - Provider: Automatic Transfer Provider - Reason: Patient not available)1716 ([facility] Unhold - Provider: Automatic Transfer Provider) HYDROmorphone (DILAUDID) injection 0.5 mg 0.5 mg, intravenous, Administer over 2 Minutes, Every 3 hours PRN, 1st line for pain, Starting on 05/10/21 at 1357, Indications: Pain 1513 ([facility] Hold - Provider: Automatic Transfer Provider - Reason: Patient not available)1716 ([facility] Unhold - Provider: Automatic Transfer Provider) iohexoL (OMNIPAQUE) 240 mg iodine/mL injection solution 50 mL (COMPLETED) 50 mL, intrahepatic, Once in imaging, contrast, Starting on 05/12/21 at 1604, For 1 dose 1605 (Contrast Given - Provider: Rosario Winston, RT - Comment: LOT: [id number]: 11/20/2023) iohexoL (OMNIPAQUE) 240 mg iodine/mL injection solution (CANCELED) As needed, Starting on e 05/12/21 at 1543, Intra-Op 1543 (Given - Provider: Nunu Steen MD) ipratropium-albuteroL (DUO-NEB) 0.5-2.5 mg/3 mL nebulizer solution 3 mL 3 mL, nebulization, Every 6 hours PRN (vp respiratory), wheezing, shortness of breath, Starting on Ailyn 05/14/21 at 0915, Indications: SOB meloxicam (MOBIC) tablet 15 mg 15 mg, oral, Daily PRN, 1st line for pain, Starting on 05/10/21 at 1607 1513 ([facility] Hold - Provider: Automatic Transfer Provider - Reason: Patient not available)1716 ([facility] Unhold - Provider: Automatic Transfer Provider) menthol (HALLS) 6.8 mg lozenge lozenge 6.8 mg 6.8 mg (1 lozenge), mouth/throat, Every 2 hours PRN, sore throat, Starting on 05/11/21 at 1717 1513 ([facility] Hold - Provider: Automatic Transfer Provider - Reason: Patient not available)1717 ([facility] Unhold - Provider: Automatic Transfer Provider) ondansetron (ZOFRAN) injection 4 mg(Linked Group 1) 4 mg, intravenous, Administer over 2 Minutes, Every 6 hours PRN, nausea, vomiting, if not tolerating PO, Starting on 05/10/21 at 1357, Indications: Nausea and Vomiting 1513 ([facility] Hold - Provider: Automatic Transfer Provider - Reason: Patient not available)1531 (Given - Provider: Javier Vizcaino CRNA)1717 ([facility] Unhold - Provider: Automatic Transfer Provider) ondansetron ODT (ZOFRAN-ODT) disintegrating tablet 4 mg(Linked Group 1) 4 mg, oral, Every 6 hours PRN, nausea, vomiting, Starting on 05/10/21 at 1357, Indications: Nausea and Vomiting 1513 ([facility] Hold - Provider: Automatic Transfer Provider - Reason: Patient not available)1531 (See Alternative - Provider: Javier Vizcaino CRNA)171 ([facility] Unhold - Provider: Automatic Transfer Provider) traMADoL (ULTRAM) tablet 50 mg 50 mg, oral, Every 6 hours PRN, 2nd line for pain, Starting on 05/10/21 at 1608 1513 ([facility] Hold - Provider: Automatic Transfer Provider - Reason: Patient not available)171 ([facility] Unhold - Provider: Automatic Transfer Provider) Linked [...] (PEPCID) tablet 20 mg 1 05/14/20 21 furosemide (LASIX) tablet 20 mg 1 1 ipratropium-albuteroL (DUO-N EB) 0.5-2.5 mg/3 mL nebulizer solution 3 mL 2 05/14/2021 05/13/20 21 hydrALAZINE (APRESOLINE) tablet 25 mg 1 05/2021 famotidine (PEPCID) injection 20 mg 1 05/12 fentaNYL (SUBLIMAZE) preserv ative free injection 25 mcg 2 05/12/2021 05/11/2021 iohexoL (OMNIPAQUE) 240 mg i odine/mL injection solution 50 mL 2 05/12/2021 05/11/2021 Lactated Ringer's (LR) infusion 2 1 05/10/2021 metoclopramide (REGLAN) injection 10 mg 1 0 05/12/2021 naloxone (NARCAN) 0.4 mg/mL injection 0.04-0.4 mg 2 05/12/2021 05/11/2021 sodium chloride 0.9% infusion 2 05/12/2021 bupivacaine (MARCAINE) 0.5 % (5 mg/mL) preservative free injection 1 05/11/2021 iohexoL (OMNIPAQUE) 240 mg i odine/mL injection solution 1 05/11/2021 menthol (HALLS) 6.8 mg lozen ge lozenge 6.8 mg 1 05/11/2021 ondansetron (ZOFRAN) injection 4 mg 3 05/1105/10/2021 sodium chloride 0.9% irrigation 1 cloNIDine (CATAPRES) tablet 0.3 mg 1 2020 cyclobenzaprine (FLEXERIL) tablet 10 mg 1 0 05/10/2021 diazePAM (VALIUM) tablet 5 mg 1 05/10/2021 docusate sodium (COLACE) capsule 100 mg 1 0 05/10/2021 enoxaparin (LOVENOX) syringe 40 mg 1 2020 famotidine (PEPCID) injection 40 mg 1 05/10 fluticasone propionate (FLON ASE) 50 mcg/actuation nasal spray 2 spray 1 05/10/2021 gabapentin (NEURONTIN) capsule 300 mg 1 02/2021 HYDROmorphone (DILAUDID) injection 0.5 mg 2 05/10/2021 ioversoL (OPTIRAY 320) injection 100 mL 1 0 05/10/2021 ketorolac (TORADOL) 15 mg/mL injection 15 mg 1 05/10/2021 loratadine (CLARITIN) tablet 10 mg 1 2020 meloxicam (MOBIC) tablet 15 mg 1 05/10/2021 ondansetron ODT (ZOFRAN-ODT) disintegrating tablet 4 mg 1 05/10/2021 oxybutynin (DITROPAN) tablet 5 mg 1 021 piperacillin-tazobactam (ZOS YN) 3.375 g in sodium chloride 0.9% 50 mL IVPB 1 05/10/2021 sodium chloride 0.9% bolus 1,000 mL 1 05/10 traMADoL (ULTRAM) tablet 50 mg 1 05/10/2021 venlafaxine (EFFEXOR) tablet 75 mg 1 2020 Diet Count Last Ordered Date First Orde [...] Ordered Date ED IP DECISION TO ADMIT 1 05/10/2021 documented in this encounter Care Teams Real Estate Assessor Relationship Specialty Start Date End Date Brandon Chavez MD PCP - General 03/26/21 documented as of this encounter
--- OUTSIDE RECORDS SUMMARY | 2024-10-27 10:57 | XMS_ITS | Encounter Summary ---
Author Organization [facility] Healthcare Address [address] [place] [address] Care Team Providers Care [employer] Developer Name Role Phone Brandon Dumont MD Primary Care Provider [phone] Reason for Visit * Reason Comments Abdominal Pain Headache Dizziness Encounter Details Date Type Department Care Team (Late st Contact Info) Description 03/26/2021 2:51 PM CDT - 03/26/2021 5:38 PM CDT Emergency [facility] Emergency Department [address] [place] [address] Ash Cosme MD [address] [place] [address] Biliary colic (Primary Dx) Discharge Disposition: Discharge to home or self care Social History Tobacco Use Types Packs/Day Years Used Date Smoking Tobacco: Former Smokeless Tobacco: Never Comments:quit 2019 Alcohol Use Standard Drinks/Week Comments Not Currently 0 (1 standard drink = 0.6 oz pur e alcohol) Comments No Sex and Gender Information Value Date Recorded Sex Assigned at Not on file Legal Sex Female 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 Gender Identity Not on file Sexual Orientation Not on file documented as of this encounter Last Filed Vital Signs Vital Sign Reading Time Taken Comments Blood Pressure 158/84 03/26/2021 5:25 PM CDT Pulse 61 03/26/2021 5:25 PM CDT Temperature 36.3 ??C (97.3 ??F) 03/26/2021 5:25 PM CD T Respiratory Rate 15 03/26/2021 5:25 PM CDT Oxygen Saturation 95% 03/26/2021 5:25 PM CDT Inhaled Oxygen Concentration - - Weight - - Height - - Body Mass Index - - documented in this encounter Discharge Diagnoses Diagnosis Calculus of bile duct without cholangitis or cholecystitis without obstruction - CALCULUS OF BILE DUCT WITHOUT CHOLANGITIS OR CHOLECYSTITIS WITHOUT OBSTRUCTION Personal history of nicotine dependence - PERSONAL HISTORY OF NICOTINE DEPENDENCE documented in this encounter Discharge Instructions * Discharge Instructions* Ash Cosme MD - 03/26/2021 4:44 PM CDT Thank you for the opportunity to care for you today! You were evaluated for abdominal pain and diagnosed with biliary colic (gallstone pain). You had blood tests that were unremarkable. You should follow-up with a surgeon in the next week or 2 to discuss elective removal of your gallbladder. Return to the ED for fever, significantly increased pain, uncontrolled nausea, or other concerns. You should take acetaminophen and/or ibuprofen/naproxen needed for pain. You may take the prescribed ondansetron as needed for nausea.. We sincerely hope you feel better soon! documented in this encounter Medications at Time [...] (three) times a day as needed 7 ergocalciferol (VITAMIN D) 50,000 unit capsule fluticasone propionate (FLONASE) 50 mcg/actuation nasal sprayIndications:Al lergic rhinitis, unspecified seasonality, unspecified trigger Administer 2 sprays into each nostril daily 16 g 11 0 gabapentin (NEURONTIN) 300 mg capsule Take 1 capsule (300 mg total) by mouth nightly 90 capsule 1 0 loratadine 10 mg capsule Take by mouth tapentadol ER (NUCYNTA ER) 100 mg 12 hr tablet Take 1 tablet (100 mg total) by mouth 2 times daily 7 venlafaxine (EFFEXOR) 75 mg tablet Take 1 tablet (75 mg total) by mouth nightly meloxicam (MOBIC) 15 mg tablet Take 1 tablet (15 mg total) by mouth daily Do not take with other NSAIDs 90 tablet 1 0 09/03/20 21 HYDROcodone-ibuprof en (VICOPROFEN) 7.5-200 mg per tablet Take 1 tablet by mouth every 6 (six) hours as needed 0 05/10/20 21 metroNIDAZOLE (METROGEL) 0.75 % vaginal gel INSERT 1 APPLICATORFUL VAGINALLY QHS 0 05/10/20 21 ondansetron ODT (ZOFRAN-ODT) 8 mg disintegrating tablet Take 1 tablet (8 mg total) by mouth every 8 (eight) hours as needed for nausea or vomiting 30 tablet 1 11/19/19 23 traMADoL (ULTRAM) 50 mg tablet Take 50 mg by mouth every 6 (six) hours as needed 0 05/26/20 21 documented as of this encounter Ordered Prescriptions Prescription Sig Dispense Quantity Refills Last Filled Start Date End Date ondansetron ODT (ZOFRAN-ODT) 8 mg disintegrating tablet Take 1 tablet (8 mg total) by mouth every 8 (eight) hours as needed for nausea or vomiting 30 tablet 03/26/2021 3 documented in this encounter Discharge Disposition Disposition Code Departure Means Destination Discharge to home or self care documented in this encounter ED Notes * Ash Cosme MD - 03/26/2021 4:29 PM CDT HPI Chief Complaint Patient presents with ??? Abdominal Pain ??? Headache ??? Dizziness Patient is a 60-year-old woman with a history of tobacco use and remote biliary colic who presents with abdominal pain. Onset several days ago. Intermittent waves of pain associated with nausea and vomiting. Denies fever, chills, chest pain, dyspnea, BM changes, urinary symptoms, or other complaints. Patient History: Patient Active Problem List Diagnosis Date Noted ??? Referred otalgia of left ear 09/30/2020 ??? Allergic rhinitis 09/30/2020 ??? Cigarette nicotine dependence, uncomplicated 02/28/2017 ??? Tobacco use 02/28/2017 ??? Decrease in appetite 01/17/2017 ??? Degeneration of intervertebral disc of lumbar region 01/17/2017 ??? Irritable mood 01/17/2017 ??? Lumbar radiculopathy 01/17/2017 ??? Menopause present 01/17/2017 No past medical history on file. Past Surgical History: Procedure Laterality Date ??? BACK SURGERY 2016 Family History Problem Relation Age of Onset ??? Heart attack Mother Family history of myocardial infarction - (Added by TW Conv) ??? Heart attack Father Family history of myocardial infarction - (Added by TW Conv) Social History Tobacco Use ??? Smoking status: Former Smoker ??? Smokeless tobacco: Never Used ??? Tobacco comment: quit 2019 Substance Use Topics ??? Alcohol use: Not Currently ??? Drug use: Not on file Social History Social History Narrative Single : (Added by TW Conv) No alcohol use : (Added by [employer]) Review of Systems Review of Systems Constitutional: Negative for chills and fever. HENT: Negative for congestion, rhinorrhea and sore throat. Eyes: Negative for visual disturbance. Respiratory: Negative for cough and shortness of breath. Cardiovascular: Negative for chest pain. Gastrointestinal: Positive for abdominal pain, nausea and vomiting. Negative for constipation and diarrhea. Genitourinary: Negative for dysuria, frequency and urgency. Musculoskeletal: Negative for myalgias. Skin: Negative for rash. Neurological: Negative for seizures, syncope and headaches. Psychiatric/Behavioral: Negative for confusion. Physical Exam ED Triage Vitals [03/26/21 1449] Temp Pulse Resp BP SpO2 36 ??C (96.8 ??F) 88 18 153/100 100 % Temp src Heart Rate Source Patient Position BP Location FiO2 (%) Temporal -- -- -- -- Physical Exam Vitals and nursing note reviewed. Constitutional: General: She is not in acute distress. Appearance: She is not ill-appearing or diaphoretic. HENT: Head: Normocephalic and atraumatic. Mouth/Throat: Mouth: Mucous membranes are moist. Eyes: General: No scleral icterus. Extraocular Movements: Extraocular movements intact. Cardiovascular: Rate and Rhythm: Normal rate and regular rhythm. Pulmonary: Effort: Pulmonary effort is normal. No respiratory distress. Abdominal: General: There is no distension. Palpations: Abdomen is soft. Tenderness: There is abdominal tenderness (Right upper quadrant/epigastric). Musculoskeletal: General: No swelling. Normal range of motion. Cervical back: Normal range of motion. Skin: General: Skin is warm and dry. Findings: No rash. Neurological: General: No focal deficit present. Mental Status: She is alert and oriented to person, place, and time. Mental status is at baseline. Psychiatric: Mood and Affect: Mood normal. Behavior: Behavior normal. MDM Medical Decision Making Differential Diagnosis or Management Options: 52-year-old woman with a history of tobacco use and remote biliary colic who presents with intermittent abdominal pain, nausea, and vomiting. Suspect biliary colic versus cholecystitis. Doubt pancreatitis. Doubt other emergent intra-abdominal condition. Plan: Labs, right upper quadrant ultrasound, pain/nausea control as needed ED Course as of Mar 26 1717 Time: 03/26 1628 Value: WBC(!): 10.6 Comment: Minimal leukocytosis without neutrophilia By: Ash Cosme MD Time: 03/26 1628 Value: Lactate: 1.6 Comment: Negative By: Ash Cosme MD Time: 03/26 1638 Comment: CMP unremarkable By: Ash Cosme MD Time: 03/26 1639 Value: Lipase, Serum: 23 Comment: Negative By: Ash Cosme MD Time: 03/26 1642 Value: Nitrite, ur: Negative Comment: Not consistent with infection By: Ash Cosme MD Time: 03/26 1717 Comment: Remains well appearing. Will discharge with outpatient surgery follow- up. Return precautions given. By: Ash Cosme MD Final diagnoses: Biliary colic Ash Cosme MD 03/26/211716 * Alla Crane RN - 03/26/2021 2:47 PM CDT Pt presents to the Ed with complaints of abd pain since Tuesday. Pt reports that she ate pizza on Tuesday and immediately felt sick. Pt also reports dizziness, headache and dark stools. documented in this encounter Miscellaneous Notes * ED Triage Provider Note - Reji Joseph PA - 03/26/2021 3:51 PM CDT Rapid Medical Evaluation: S - transfer text O - CONSTITUTIONAL: well-nourished; in no apparent distress HEAD: Normocephalic; atraumatic EYES: PERRL; conjunctiva and sclera are clear bilaterally. ENT: canals normal; no rhinorrhea; normal pharynx with no tonsillar hypertrophy; mucous membranes pink/moist, no erythema, no exudate. NECK: Supple; non-tender; no cervical lymphadenopathy CARD: Regular rate and rhythm. RESP: Normal respiratory effort; breath sounds clear and equal bilaterally; no wheezes, rhonchi, orrales. ABD: Normal bowel sounds; non-distended; epigastric and periumbilical tenderness. EXT: Normal ROM in all four extremities. SKIN: warm; dry; good turgor. A - abdominal pain, nausea, vomiting P - labs, IV fluids, IV Rx, CT of abdomen and pelvis with IV contrast. To go to main ER when room available. documented in this encounter Plan of Treatment Not on file documented as of this encounter Procedures Procedure Name Priority Date/Time Associated Diagnosis Comments US RUQ ED 03/26/2021 5:10 PM CDT URINALYSIS AND REFLEX TO MICROSCOPIC AND CULTURE STAT 03/26/2021 4:13 PM CDT SEPSIS LACTATE WITH REFLEX STAT 03/26/2021 4:07 PM CDT EGFR STAT 03/26/2021 4:07 PM CDT DIFFERENTIAL AUTO STAT 03/26/2021 4:0 7 PM CDT CBC WITH AUTO DIFFERENTIAL STAT 03/26/2021 4:07 PM CDT LIPASE STAT 03/26/2021 4:07 PM CDT COMPREHENSIVE METABOLIC PANEL STAT 03/26/2021 4:07 PM CDT documented in this encounter Results * US RUQ (03/26/2021 5:10 PM CDT) Anatomical Region Laterality Modality Abdomen N/A Ultrasound 03/26/2021 5:12 PM CDT Narrative 03/26/2021 5:14 PM CDT EXAM DESCRIPTION: ?? US RUQ REASON FOR STUDY: ?? Intermittent abdominal pain for 3 days with nausea and vomiting, dizziness, headache and dark stools. TECHNIQUE: ??Ultrasound of the right upper quadrant of the abdomen was performed with grayscale and color doppler. COMPARISON: ?? None FINDINGS: PANCREAS: ??Visualized portions of the pancreas are within normal limits. Portions of the pancreatic body and tail are obscured due to bowel gas. LIVER: ??The liver appears normal in echotexture and echogenicity. No focal lesion identified. The main portal vein is patent with antegrade flow. GALLBLADDER: ??There are multiple shadowing gallstones along the dependent portion of the gallbladder. ??There is no evidence of gallbladder wall thickening or pericholecystic fluid. BILIARY: ??There is no intrahepatic or extrahepatic biliary ductal dilatation. Common bile duct measures ??3 mm in diameter. RIGHT KIDNEY: ??Normal size. Normal echogenicity. No solid mass or cyst. ??No hydronephrosis. Measures ??10 cm in length. OTHER: ??No other significant findings. IMPRESSION: ?? Cholelithiasis. THIS IS AN ELECTRONICALLY VERIFIED FINAL REPORT 03/26/2021 5:14 PM - Electronically signed by Joshua Bravo KT: KT D: ??03/26/2021 5:14 PM T: ??03/26/2021 5:14 PM Report ID: [id number] Reading Location: ??[id number] Procedure Note Joshua Bravo MD - 03/26/2021 EXAM DESCRIPTION: US RUQ REASON FOR STUDY: Intermittent abdominal pain for 3 days with nausea and vomiting, dizziness, headache and dark stools. TECHNIQUE: Ultrasound of the right upper quadrant of the abdomen was performed with grayscale and color doppler. COMPARISON: None FINDINGS: PANCREAS: Visualized portions of the pancreas are within normal limits. Portions of the pancreatic body and tail are obscured due to bowel gas. LIVER: The liver appears normal in echotexture and echogenicity. No focal lesion identified. The main portal vein is patent with antegrade flow. GALLBLADDER: There are multiple shadowing gallstones along the dependent portion of the gallbladder. There is no evidence of gallbladder wall thickening or pericholecystic fluid. BILIARY: There is no intrahepatic or extrahepatic biliary ductaldilatation. Common bile duct measures 3 mm in diameter. RIGHT KIDNEY: Normal size. Normal echogenicity. No solid mass or cyst.No hydronephrosis. Measures 10 cm in length. OTHER: No other significant findings. IMPRESSION: Cholelithiasis. THIS IS AN ELECTRONICALLY VERIFIED FINAL REPORT 03/26/2021 5:14 PM - Electronically signed by Joshua Bravo KT: KT Report ID: [id number] Reading Location: [place] [address] Ash Cosme MD IM US PROCEDURES F inal Result * Urinalysis reflex to microscopic and culture Urine (03/26/2021 4:13 PM CDT) Color, ur Yellow Yellow [facility] ([place]) Clarity, ur Clear Clear [facility] ([place]) Specific gravity, ur 1.025 1.010 - 1.025 [facility] pH, urine 5.5 [facility]) Protein, ur ql Negative Negative [facility]) Glucose, ur ql Negative Negative [facility]) Ketones, ur Negative Negative [facility]) Bilirubin, ur Negative Negative [facility]) Blood, ur Negative Negative [facility]) Urobilinogen, ur <2.0 <2.0 mg/dL [facility]) Nitrite, ur Negative Negative [facility]) Leukocyte esterase, ur Negative Negative [facility]) UA reflex comment Reflex conditions for microscopic UA and culture not met. [facility]) Urine 03/26/2021 4:13 PM CDT 03/26/2021 4:21 PM CDT Narrative [facility]) - 03/26/2021 4:41 PM CDT ?? Urine pH is affected by diet, medications, systemic acid-base disturbances, and renal tubular function. ??pH may affect urinary stone formation. ??For example, urine pH below 6.0 may help reduce the tendency for calcium phosphate stones and pH greater than 6.0 may reduce the tendency for uric acid stone formation. Source: [employer]. Last revised 11-17-2017 us [facility] - GENERAL O RDERABLES Final Result [facility] ([place]) 1 [facility] [employer] [place] [address] * eGFR (03/26/2021 4:07 PM CDT) eGFR 56 mL/min/1.7 3 m2 [facility] ([place]) Comment: Interpretive Data Reference Interval Normal ?>/= [...] was last reviewed 2020 Blood specimen (specimen) 03/26/2021 4:07 PM CDT 03/26/2021 4:10 PM CDT [facility] ORDERABLES Final R esult [facility] ([place]) 1 [facility] Department [place] [employer] [place] [address] * (ABNORMAL) Differential, auto (03/26/2021 4:07 PM CDT) Neutrophil abs 5.7 1.7 - 6.5 K/cumm [facility] ([place]) Imm gran abs 0.0 0.0 - 0.1 K/cumm [facility] ([place]) Lymphocyte abs 3.7(H) 0.8 - 3.3 K/cumm [facility] ([place]) Monocyte abs 0.6 0.2 - 0.8 K/cumm [facility] ([place]) Eosinophil abs 0.6(H) 0.0 - 0.5 K/cumm [facility]) Basophil abs 0.1 0.0 - 0.1 K/cumm [facility] ([place]) Neutrophil pct 53.3 % [facility] ([place]) Comment: Interpretive [...] was last revised on 2018. Lymphocyte pct 34.7 % [facility] ([place]) Comment: Interpretive [...] was last revised on 2018. Eosinophil pct 5.3 % [facility]) Comment: Interpretive Data Percent cell count reference ranges are not reported, since discordance with absolute values may lead to misinterpretation of CBC data. Current Interpretive Data was last revised on 2018. Basophil pct 0.8 % [facility]) Comment: Interpretive Data Percent cell count reference ranges are not reported, since discordance with absolute values may lead to misinterpretation of CBC data. Current Interpretive Data was last revised on 2018. Blood specimen (specimen) 03/26/2021 4:07 PM CDT 03/26/2021 4:09 PM CDT [facility] Final R esult Performing Organization Address City/[facility] [address]/ZIP Co de Phone Number [facility] ([place]) [address] [place] [address] * Sepsis Lactate w/ Reflex (03/26/2021 4:07 PM CDT) Pathologist [facility] Sepsis Lactate 1.6 0.7 - 2.0 mmol/L [facility] ([place]) Blood specimen (specimen) 03/26/2021 4:07 PM CDT 03/26/2021 4:08 PM CDT [facility] ORDER[facility] Final R esult Performing Organization Address [facility] [address]/ZIP Co de Phone Number [facility] ([place]) [address] [place] [address] * Lipase (03/26/2021 4:07 PM CDT) Pathologist [facility] Lipase 23 10 - 99 Units/L [facility] ([place]) Blood specimen (specimen) 03/26/2021 4:07 PM CDT 03/26/2021 4:10 PM CDT [facility] ORDERABLES Final R esult Performing Organization Address City/[facility] [address]/[facility] Co de Phone Number [facility] ([place]) [address] [place] [address] * Comprehensive metabolic panel (03/26/2021 4:07 PM CDT) Pathologist [facility] Sodium 142 135 - 145 mmol/L [facility] ([place]) Potassium, pl 4.0 3.3 - 4.9 mmol/L [facility] ([place]) Chloride 107 97 - 110 mmol/L [facility] CO2 27 22 - 32 mmol/L [facility] Anion gap 8 2 - 15 mmol/L [facility] BUN 16 8 - 25 mg/dL [facility] Creatinine 1.09 0.60 - 1.10 mg/dL [facility]) Glucose 99 70 - 199 mg/dL [facility] ([place]) [...] interpretive data was last revised 2017. Calcium 9.5 8.5 - 10.3 mg/dL [facility] ([place]) Bilirubin, total 0.3 0.1 - 1.2 mg/dL [facility] ([place]) Protein, pl 7.1 6.5 - 8.5 g/dL [facility]) Albumin 4.0 3.5 - 5.0 g/dL [facility] ([place]) Alk phos 101 40 - 130 Units/L [facility]) ALT 17 7 - 45 Units/L [facility]) AST 18 10 - 45 Units/L [facility] ([place]) Blood specimen (specimen) 03/26/2021 4:07 PM CDT 03/26/2021 4:10 PM CDT us [facility] B[facility] ORDERABLES Final R esult [facility] ([place]) 1 [facility] Department [place] [address] * (ABNORMAL) CBC with auto differential (03/26/2021 4:07 PM CDT) WBC 10.6(H) 3.8 - 9.9 K/cumm [facility] ([place]) Hgb 14.8 11.9 - 15.5 g/dL [facility]) Hct 43.0 35.6 - 45.5 % [facility]) Plt 247 150 - 400 K/cumm [facility]) MPV 10.1 9.1 - 12.3 fL [facility]) RBC 5.43(H) 3.90 - 5.20 M/cumm [facility]) MCV 79.2(L) 81.3 - 96.4 fL [facility] ([place]) MCH 27.3 27.1 - 33.3 pg [facility]) MCHC 34.4 32.3 - 35.7 g/dL [facility]) RDW CV 14.3 11.1 - 14.9 % [facility]) RDW SD 40.8 35.7 - 48.1 fL [facility]) NRBC abs 0.00 0.00 - 0.01 K/cumm [facility] ([place]) Blood specimen (specimen) 03/26/2021 4:07 PM CDT 03/26/2021 4:09 PM CDT [facility] B[facility] ORDERABLES Final R esult [facility] ([place]) 1 [facility] Department [place] [address] documented in this encounter Visit Diagnoses Diagnosis Biliary colic- Primary Calculus of gallbladder without mention of cholecystitis or obstruction documented in this encounter Administered Medications Inactive Administered Medications - up to 3 most recent administrations Medication Order MAR Action Action Date Dose Rate Site ondansetron (ZOFRAN) injection 4 mg 4 mg, intravenous, Administer over 2 Minutes, Once, On Ailyn 03/26/21 at 1552, For 1 dose, Indications: Nausea, VomitingIndications:Nausea, Vomiting Given 03/26/2021 4:14 PM CDT 4 mg sodium chloride 0.9% bolus 1,000 mL 1,000 mL, intravenous, at 1,000 mL/hr, Administer over 1 Hours, Once, On Ailyn 03/26/21 at 1553, For 1 dose New Bag 03/26/2021 4:14 PM CDT 1,000 mL 100 0 mL/hr documented in this encounter Active and Recently Administered Medications Times are shown in CDT. Scheduled Medication Order 03/24/2021 03/25/2021 03/26/2021 ondansetron (ZOFRAN) injection 4 mg (COMPLETED) 4 mg, intravenous, Administer over 2 Minutes, Once, On Ailyn 03/26/21 at 1552, For 1 dose, Indications: Nausea, Vomiting 1614 (Given - Provid er: Alla Anderson, RN) sodium chloride 0.9% bolus 1,000 mL (COMPLETED) 1,000 mL, intravenous, at 1,000 mL/hr, Administer over 1 Hours, Once, On Ailyn 03/26/21 at 1553, For 1 dose 1614 (New Bag - Prov ider: Alla Anderson, RN)1652 (Stopped - Provider: Phill Brewster RN) documented in this encounter Orders Nursing Count Last Ordered Date First Orde red Date NURSING COMMUNICATION 1 03/26/2021 IV Count Last Ordered Date First Orde red Date SALINE LOCK IV 1 03/26/2021 documented in this encounter Care Teams [employer] Relationship Specialty Start Date End Date Brandon Dumont MD PCP - General 03/26/21 documented as of this encounter
--- OUTSIDE RECORDS SUMMARY | 2024-10-27 10:57 | XMS_ITS | Encounter Summary ---
Author Organization [facility] Healthcare Address [address] [place] [address] Care Team Providers Care Leasing Sales Consultant Name Role Phone Brandon Chavez MD Primary Care Provider [phone] Reason for Visit * Reason Comments Abdominal Pain Encounter Details Date Type Department Care Team (Late st Contact Info) Description 05/11/2021 9:05 AM CDT - 05/11/2021 10:45 AM CDT Surgery [facility] Operating Room [address] [place] [address] Jess Moss MD [address] [place] [id number] LAPAROSCOPIC CHOLECYSTECTOMY WITH CHOLANGIOGRAM Surgery Details Date/Time Status Location OR Service Patient Class Case Class Case Type Trauma Case? 05/11/2021 9:05 AM Posted [facility] OPERATING ROOM OR General Surgery Inpatient Elective Panel 1 Procedure LRB Anes Op Region Wound Class Comments LAPAROSCOPIC CHOLECYSTECTOMY WITH CHOLANGIOGRAM N/A General Abdomen Class II - Cl bernadine Contaminated Surgeon Surgeon Role Service Panel Jess Moss MD Primary General Surgery 1 documented in this encounter Social History Tobacco Use Types Packs/Day Years Used Date Smoking Tobacco: Former Cigarettes Smokeless Tobacco: Never Comments:quit 2020 Alcohol Use Standard Drinks/Week Comments Not Currently 0 (1 standard drink = 0.6 oz pur e alcohol) Comments No Sex and Gender Information Value Date Recorded Sex Assigned at Not on file 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 Gender Identity Not on file Sexual Orientation Not on file documented as of this encounter Last Filed Vital Signs Vital Sign Reading Time Taken Comments Blood Pressure 111/69 05/11/2021 10:45 AM CDT Pulse 53 05/11/2021 10:45 AM CDT Temperature 36.5 ??C (97.7 ??F) 05/11/2021 10:30 AM C DT Respiratory Rate 10 05/11/2021 10:45 AM CDT Oxygen Saturation 100% 05/11/2021 10:45 AM CDT Inhaled Oxygen Concentration - - Weight 67 kg (147 lb 11.3 oz) 05/11/2021 8:17 AM CDT Height 165.1 cm (5' 5 ) 05/10/2021 11:01 AM CDT Body Mass Index 24.58 05/11/2021 8:17 AM CDT documented in this encounter Discharge Summaries * Nakia Kirk MD - 05/14/2021 3:34 PM CDT Inpatient Discharge Summary BRIEF OVERVIEW Admitting Provider: Erin Finley DO Discharge Provider: Nunu Steen MD Primary Care Physician at Discharge: Brandon Chavez MD [phone] Admission Date: 05/10/2021 Discharge Date: 05/14/2021 Admission Location: [facility] Problems/Diagnoses: Principal Problem: Cholecystitis Active Problems: [...] Rate: 58 bpm RR Interval: 1034 msec [place] Interval: 178 msec QRS Duration: 87 msec QT Interval: 425 msec QTC Interval: 421 msec P-R-T [place]: 37 - 72 - 31 degrees SINUS [...] by Angle Castro M.D. : Report ID: [id number] Reading Location: [id number] ?? XR Chest 1 Vw Portable ?? [...] Priscilla Quarles D.O. PS: PS Report ID: [id number] Reading Location: [place] [address] ? Microbiology: 05/10/2021 COVID 19:Negative Discharge Details [...] Specialty: General Surgery Relationship: Consulting Physician [address] MARLA Auguste [address] [address] Next Steps: Follow up Instructions: Within one week Questions: Instructions for follow-up (appointment date and time): Within one week To provider: JESS MOSS Bryan, MD Specialty: Family Medicine Relationship: PCP - General [address] [facility] [address] Next Steps: Follow up Instructions: Within 2 weeks Questions: To provider: BRANDON CHAVEZ Instructions for follow-up (appointment date and time): Within 2 weeks Nunu Steen MD Specialty: Gastroenterology, Internal Medicine Relationship: Consulting Physician [address] [place] [address] [address] [facility] [address] Next Steps: Follow up Instructions: Within 2-3 [...] through Care Everywhere. * Hydralazine (By mouth) (Swedish) * Laparoscopic Cholecystectomy (Discharge Care) (Swedish) documented in this encounter Medications at Time [...] this encounter Progress Notes * Alla Karimi, IT ASSOCIATE - 05/14/2021 3:41 PM CDT SW met [...] and SO GPRA. SW will scan to [facility]. * Montse Bender RPh - 05/14/2021 9:40 [...] for antibiotics on discharge. Voice recognition software The Scene Direct was used dictate and transcribe this document. Dependency Program Director variances may occur. Despite proofreading, typographical errors may occur. Nunu Steen MD * Nakia Kirk MD - 05/13/2021 2:11 PM CDT [facility] Hospitalist Service Progress Note Patient Name: Joselyn Arguello Patient : 1960 Age/Sex: 60 y.o. female Room/Bed: ADZB133/[id number] Admission Date/Time: 05/10/2021 11:04 AM Date: 05/13/2021 [...] Rate: 58 bpm RR Interval: 1034 msec [place] Interval: 178 msec QRS Duration: 87 msec QT Interval: 425 msec QTC Interval: 421 msec P-R-T [place]: 37 - 72 - 31 degrees SINUS [...] by Angle Castro M.D. : Report ID: [id number] Reading Location: [id number] XR Chest 1 Vw Portable Result Date: [...] Priscilla Quarles D.O. PS: PS Report ID: [id number] Reading Location: [id number] Microbiology: 05/10/2021 COVID 19:Negative ASSESSMENT AND PLAN: [...] Nakia Car MD Internal Medicine - Hospitalist [facility] - Adult Hospitalist Service 05/13/2021 2:11 [...] was used dictate and transcribe this document. Dependency Program Director variances may occur. Despite proofreading, typographical errors may occur. Nunu Steen MD * Janet Elizondo, RD - 05/13/2021 8:55 AM CDT Nutrition [...] Plan Includes: surgery Primary Source of Transportation: [facility] Health Insurance Coverage: [facility] [place] Choice Prescription Coverage: yes Pharmacy: [facility] Primary Care Provider: Brandon Chavez MD [...] Kirk MD - 05/12/2021 10:24 AM CDT [facility] Hospitalist Service Progress Note Patient Name: Joselyn Arguello Patient : 1960 Age/Sex: 60 y.o. female Room/Bed: RNDM976/[id number] Admission Date/Time: 05/10/2021 11:04 AM Date: 05/12/2021 [...] 125 mL/hr, Last Rate: 125 mL/hr (05/11/21 2895) PRN Meds:cyclobenzaprine ??? diazePAM ??? docusate sodium [...] Rate: 58 bpm RR Interval: 1034 msec [place] Interval: 178 msec QRS Duration: 87 msec QT Interval: 425 msec QTC Interval: 421 msec P-R-T [place]: 37 - 72 - 31 degrees SINUS [...] by Angle Castro M.D. : Report ID: [id number] Reading Location: [id number] XR Chest 1 Vw Portable Result Date: [...] Priscilla Quarles D.O. PS: PS Report ID: [id number] Reading Location: [id number] Microbiology: 05/10/2021 COVID 19:Negative ASSESSMENT AND PLAN: [...] Nakia Car MD Internal Medicine - Hospitalist [facility] - Adult Hospitalist Service 05/12/2021 10:49 AM * Stepan Phelps Jr., MD - 05/11/2021 3:56 PM CDT [facility] Hospitalist Service Progress Note Patient Name: Joselyn Arguello Patient : 1960 Age/Sex: 60 y.o. female Room/Bed: FPVG664/[id number] Admission Date/Time: 05/10/2021 11:04 AM Date: 05/11/2021 [...] by Angle Castro M.D. : Report ID: [id number] Reading Location: [id number] XR Chest 1 Vw Portable Result Date: [...] Priscilla Quarles D.O. PS: PS Report ID: [id number] Reading Location: [id number] Microbiology: 05/10/2021 13:11 COVID-19 RNA Negative ASSESSMENT [...] Phelps Jr., MD Internal Medicine - Hospitalist [facility] Hospitalist Service 05/11/2021 3:56 PM documented in this encounter H&P Notes * Stepan Phelps Jr., MD - 05/10/2021 4:09 PM CDT [facility] Adult Hospitalist Service History and Physical Patient Name: Joselyn Arguello Patient : 1960 Age/Sex: 60 y.o. female Room/Bed: [place] [address]/[id number] Admission Date/Time: 05/10/2021 11:04 AM Date: 05/10/2021 Time: 4:09 PM Primary Care Physician: Brandon Chavez MD PCP Office Location: [address] [place] [address] PCP Chief Complaint: abdominal pain HPI: Joselyn [...] by Angle Castro M.D. : Report ID: [id number] Reading Location: [id number] XR Chest 1 Vw Portable Result Date: [...] Priscilla Quarles D.O. PS: PS Report ID: [id number] Reading Location: [place] [address] ASSESSMENT AND PLAN: Principal Problem: Cholecystitis Active [...] Phelps Jr., MD Internal Medicine - Hospitalist [facility] - Adult Hospitalist Service CC: Brandon Chavez MD documented in this encounter Procedure Notes * Nunu Steen MD - 05/12/2021 2:37 PM CDTAssociated Order(s): ERCP [facility] Patient Name: Joselyn Arguello Procedure Date: 05/12/2021 2:37 PM Date of : 1960 Admit Type: Inpatient Age: 60 Gender: Female Attending MD: Nunu Steen M.D. Room: [place] [address] Note Status: Finalized Patient Profile: This is [...] consent was obtained. The Endoscope ERCP [id number] was introduced through the mouth, and used to inject contrast into and used to inject contrast into the bile duct. The ERCP was accomplished without difficulty. The patient tolerated the procedure well. Findings: The area director film was normal. A standard esophagogastroduodenoscopy scope [...] 2:37 PM Procedure Code(s): --- Professional --- 93124, Endoscopic retrograde cholangiopancreatography (ERCP); with sphincterotomy/papillotomy Diagnosis Code(s): --- Professional --- K80.50, Calculus of bile duct without cholangitis or cholecystitis without obstruction R74.8, Abnormal levels of other serum enzymes CPT copyright 2019 [employer]. All rights reserved. The codes documented in this report are preliminary and upon dental lab technician review may be revised to meet current compliance requirements. Recognized by the [employer] for promoting quality [...] DVT and GI prophylaxis. Voice recognition software The Scene Direct was used dictate and transcribe this document. Dependency Program Director variances may occur. Despite proofreading, typographical errors [...] 130 mL/hr at 05/11/2137, 3.375 g at 05/11/21536 ??? [JAN Hold] traMADoL (ULTRAM) tablet 50 [...] Gatherings with Friends and Family: ??? Attends Temple Services: ??? Active Member of Clubs or [...] discharged with patient. Transported per wheelchair to [place] emergency department where grandson picked up. documented in this encounter ED Notes * Bindu Landers MD - 05/10/2021 11:38 AM CDT Triage Chief Complaint: Chief Complaint Patient presents with ??? Abdominal Pain Portions of the record may have been created with voice recognition software. Occasional wrong-word or 'kdxyk-w-enyj' substitutions may have occurred due to the [...] by myself in the absence of a bleach boiler filler) Sinus rhythm with a rate of 58, [...] been completed with a voice recognition program. Dependency Program Director errors occur. Please contact me for any [...] MD - Primary Anesthesiologist: Zack To MD STOCK TAKER: Javier Vizcaino CRNA Endoscopy Nurse: Josefina Funk [...] Tramadol. Had a cough and was given [place]. * Plan of Care - Mukul Magdaleno [...] OF : 1960 SURGEON: Jess Moss MD PARACHUTE SUPERVISOR:Restrooms Or Lounges Maid: Yuliya Masters RN Tower Helper: Oliver Johnson RT Scrub: Janelle Luong ST [...] mm trocar site was closed with a acndaw-uv-cjnfv 0 Vicryl stitch. Remaining trocars were closed [...] reach. * Assessment & Plan Note - Setpan Phelps Jr., MD - 05/10/2021 4:14 PM [...] ER when room available. Voice recognition software The Scene Direct was used to dictate and transcribe this document. Dependency Program Director variances may occur. Despite proofreading, typographical errors [...] Results * eGFR (05/14/2021 3:28 AM CDT) [facility] eGFR 54 mL/min/1.7 3 m2 [facility] [...] Final Resu lt [facility] ([place]) 1 [facility] Department [place] [address] * Differential, auto (05/14/2021 3:28 AM CDT) [...] 2018. Basophil pct 0.6 % [facility] ([place]) Comment: Interpretive Data Percent cell count reference ranges are not reported, since discordance with absolute values may lead to misinterpretation of CBC data. Current Interpretive Data was last revised on 2018. Blood specimen (specimen) 05/14/2021 3:28 AM CDT 05/14/2021 3:47 AM CDT Nakia Kirk MD LAB BLOOD ORDERABLES Final Resu lt Performing Organization Address City/[facility]/ZIP Co de Phone Number [facility] ([place]) 1 [facility] [place] [address] * Phosphorus (05/14/2021 3:28 AM CDT) Phosphorus, pl 3.5 2.3 - 4.5 mg/dL [facility] ([place]) Blood specimen (specimen) 05/14/2021 3:28 AM CDT 05/14/2021 3:47 AM CDT Nakia Kirk MD LAB BLOOD ORDERABLES Final Resu lt [facility] ([place]) 1 [facility] [place] [address] * Magnesium (05/14/2021 3:28 AM CDT) Magnesium 1.8 1.4 - 2.5 mg/dL [facility] ([place]) Blood specimen (specimen) 05/14/2021 3:28 AM CDT 05/14/2021 3:47 AM CDT us Nakia Kirk MD LAB BLOOD ORDERABLES Final Resu lt [facility] ([place]) 1 [facility] Department [place] [address] * (ABNORMAL) Comprehensive metabolic panel (05/14/2021 3:28 [...] Final Resu lt [facility] ([place]) 1 [facility] Department [place] [address] * (ABNORMAL) CBC with auto differential (05/14/2021 [...] ORDERABLES Final Resu lt [facility] ([place]) 1 [facility] Department [place] [address] * (ABNORMAL) Pro B-type natriuretic peptide (05/14/2021 [...] BLOOD ORDERABLES Final Resu lt [facility] ([place]) 1 [facility] Department [place] [address] * XR Chest 1 View (05/13/2021 2:02 [...] PM T: ??05/13/2021 2:20 PM Report ID: [id number] Reading Location: ??[id number] Procedure Note Robina Priscilla Chapa, DO - 05/13/2021 EXAM DESCRIPTION: XR CHEST [...] Priscilla Quarles D.O. PS: PS Report ID: [id number] Reading Location: [id number] Nakia Kirk MD IMG XR PROCEDURES Final [...] BLOOD ORDERABLES Final Result Performing Organization Address City/[facility]/ZIP Co de Phone Number [facility] ([place]) 1 [facility] [place] [address] * Bilirubin, direct (05/13/2021 8:08 AM CDT) Bilirubin, direct <0.2 0.1 - 0.3 mg/dL [facility] ([place]) Blood specimen (specimen) 05/13/2021 8:08 AM CDT 05/13/2021 8:11 AM CDT Nunu Steen MD LAB BLOOD ORDERABLES Final Result Performing Organization Address City/State/[facility] Co de Phone Number [facility] [facility] ([place]) 1 [facility] [place] [address] * Differential, auto (05/13/2021 8:08 AM CDT) [...] MD LAB BLOOD ORDERABLES Final Result [facility] ([place] 1 [facility] [place] [address] * Phosphorus (05/13/2021 8:08 AM CDT) [facility] Phosphorus, pl 3.1 2.3 - 4.5 mg/dL [facility] ([place]) Blood specimen (specimen) 05/13/2021 8:08 AM CDT 05/13/2021 8:20 AM CDT Nakia Kirk MD LAB BLOOD ORDERABLES Final Resu lt [facility] [facility] ([place]) 1 [place] [address] * Magnesium (05/13/2021 8:08 AM CDT) [facility] Magnesium 1.8 1.4 - 2.5 mg/dL [facility] ([place]) Blood specimen (specimen) 05/13/2021 8:08 AM CDT 05/13/2021 8:20 AM CDT Nakia Kirk MD LAB BLOOD ORDERABLES Final Resu lt [facility] ([place]) 1 [place] [address] * (ABNORMAL) Comprehensive metabolic panel (05/13/2021 8:08 AM CDT) [facility] Sodium 143 135 - 145 mmol/L [facility] ([place]) Potassium, pl 3.7 3.3 - 4.9 mmol/L [facility] ([place]) Chloride 111(H) 97 - 110 mmol/L [facility] ([place]) CO2 24 22 - 32 mmol/L [facility] ([place]) Anion gap 8 2 - 15 mmol/L [facility] ([place]) BUN 7(L) 8 - 25 mg/dL [facility] ([place]) Creatinine 1.04 0.60 - 1.10 mg/dL [facility] ([place]) Glucose 89 70 - [...] ORDERABLES Final Result [facility] ([place]) 1 [facility] Department [place] [address] * (ABNORMAL) CBC with auto differential (05/13/2021 [...] MCV 78.5(L) 81.3 - 96.4 fL [facility] ([place]) MCH 27.6 27.1 - 33.3 pg [facility] ([place]) MCHC 35.1 32.3 - 35.7 g/dL [facility] ([place]) RDW CV 14.3 11.1 - 14.9 % [facility] ([place]) RDW SD 40.9 35.7 - 48.1 fL [facility] ([place]) NRBC abs 0.00 0.00 - 0.01 K/cumm [facility] ([place]) Blood specimen (specimen) 05/13/2021 8:08 AM CDT 05/13/2021 8:11 AM CDT Nunu Steen MD LAB BLOOD ORDERABLES Final Result [facility] ([place]) 1 [facility] Department of Laboratories [place] [id number] * FL ERCP (05/12/2021 4:05 PM CDT) [...] PM T: ??05/12/2021 6:17 PM Report ID: [id number] Reading Location: ??[id number] Procedure Note John John MD - 05/12/2021 EXAM DESCRIPTION: FL ERCP REASON FOR STUDY: Painless jaundice. Weight loss. Symptoms for greaterthan [address] Ab[address] gallbladder on CT 05/10/2021. COMPARISON: Intraoperative cholangiogram 05/11/[address] eruqnvs9605/10/2021 FLUOROSCOPY TIME/IMAGE COUNT: Fluoro Time: Flouro Time: [...] 6:17 PM - Electronically signed by John ÁLVAREZ: HENRI Report ID: [id number] Reading Location: [id number] us Nunu Steen MD IMG FLUOROSCOPY PROCEDURES Final Result * ERCP (05/12/2021 2:37 PM CDT) Anatomical Region Laterality Modality Other Narrative Procedure Note Nunu Steen MD - 05/12/2021 2:37 PM CDT [facility] Patient Name: Joselyn Arguello Procedure Date: 05/12/2021 2:37 PM Date of : 1960 Admit Type: Inpatient Age: 60 Gender: Female Attending MD: Nunu Steen M.D. Room: [place] [address] Note Status: Finalized Patient Profile: This is [...] informed consentwas obtained. The Endoscope ERCP [id number]-[id number] introduced through the mouth, and used to inject contrast into and used to inject contrast into the bile duct. The ERCP was accomplished without difficulty. The patient tolerated the procedurewell. Findings: The area director film was normal. A standard esophagogastroduodenoscopyscope was [...] 2:37 PM Procedure Code(s): --- Professional --- 83168, Endoscopic retrograde cholangiopancreatography (ERCP); with sphincterotomy/papillotomy Diagnosis Code(s): --- Professional --- K80.50, Calculus of bile duct without cholangitis or cholecystitis without obstruction R74.8, Abnormal levels of other serum enzymes CPT copyright 2019 [employer]. All rights reserved. The codes documented in this report are preliminary and upon dental lab technician reviewmay be revised to meet current compliance requirements. Recognized by the [employer] for promoting quality in endoscopy us Nunu Steen MD ENDOSCOPY PROCEDURES Final Result [...] LAB BLOOD ORDERDirk ROMO Final Result [facility] [facility] ([place]) 1 [facility] Department [place] [address] * Surgical pathology (05/11/2021 11:19 AM CDT) Tissue (Gallbladder) 05/11/2021 9:36 AM CDT Narrative PATHOLOGY [facility] ([place]) - 05/13/2021 11:42 AM CDT EPIC results best viewed via link to PDF [facility] Department of Pathology [address] [place] [address] Final Report Patient Name: ??JOSELYN ARGUELLODarell Address: ??[address] [facility] [facility], ??[place], [place] ??[address] Gender: ??F : ??1960 (Age: 60) Service: ??Medical Location: ??[facility] Hospital #: ??[id number] Patient Type: ??[facility] IP Accession # [id number] Taken: ??05/11/2021 Received: ??05/12/2021 Accessioned: ??05/12/2021 Reported: [...] received in a single container labeled [place]elyn [place] and gallbladder . ??It is a gallbladder [...] determined by the Surgical Pathology Department at [facility] as part of an ongoing senior quality assurance analyst program and in compliance [...] characteristics determined by the Surgical Pathology Department [facility]. ??It has not been cleared or approved by the U. S. Food and Drug Administration. Jess Moss MD LAB PATHOLOGY OR DERABLES Final Result PATHOLOGY [facility] ([place]) 1 [place] [address] * [place] Cholangiogram Intraoperative (05/11/2021 [...] PM T: ??05/12/2021 6:20 PM Report ID: [id number] Reading Location: ??[id number] Procedure Note John John MD - 05/12/2021 [...] John John M.D. DL: HENRI Report ID: [id number] Reading Location: [place] [address] Jess Moss MD IMG FLUOROSCOPY PROCEDURES Final Result * COVID-19 Coronavirus RNA Nasopharyngeal (05/10/2021 1:11 PM CDT) COVID-19 RNA Negative Negative [facility] ([place]) Comment: Interpretive data: Synonyms for this test include: PCR and NAAT . ??This test is performed using the uControl Xpert Xpress assay. This is a real-time [...] 11, 2020. First COVID-19 test? No [facility] ([place]) Employeed in healthcare? Unknown [facility] ([place]) status? No [facility] ([place]) Group care resident? Unknown [facility] ([place]) Hospitalized? Unknown [facility] ([place]) Is patient in ICU? Unknown [facility] ([place]) Symptomatic as defined by CDC? No [facility] ([place]) Nasopharyngeal 05/10/2021 1: 11 PM CDT 05/10/2021 1:18 PM CDT Narrative [facility] ([place]) - 05/10/2021 2:10 PM CDT What is the reason for testing?->Screening prior to urgent surgery, procedure, BMT, immunosuppressive therapy us Bindu Landers MD LAB MICROBIOLOGY - GENER AL ORDERABLES Final Result [facility] ([place]) 1 [facility] Department [place] [address] * (ABNORMAL) Urinalysis reflex to microscopic and [...] ([place]) Blood, ur Negative Negative [facility] ([place]) Urobilinogen, ur 2.0(A) <2.0 mg/dL [facility] [...] tendency for uric acid stone formation. Source: Sling. Last revised 11-17-2017 us Reji CLIFFORD LAB MICROBIOLOGY - GENERAL O RDERABLES Final Result [facility] ([place]) 1 [facility] Department [place] [address] * CT Abdomen Pelvis W Contrast (05/10/2021 [...] PM T: ??05/10/2021 12:22 PM Report ID: [id number] Reading Location: ??[id number] Procedure Note Angle Castro MD - 05/10/2021 [...] by Angle Castro M.D. : Report ID: [id number] Reading Location: [place] [address] us Bindu Landers MD IMG CT PROCEDURES [...] AM T: ??05/10/2021 11:58 AM Report ID: [id number] Reading Location: ??[id number] Procedure Note Priscilla Quarles, DO - 05/10/2021 [...] Priscilla Quarles D.O. PS: PS Report ID: [id number] Reading Location: [place] [address] Reji CLIFFORD IMG XR PROCEDURES Final Resu lt * ECG 12 lead (05/10/2021 11:19 AM CDT) 05/10/2021 11:1 9 AM CDT Narrative [facility] - 05/12/2021 8:08 AM CDT Vent Rate: 58 bpm RR Interval: 1034 msec [place] Interval: 178 msec QRS Duration: 87 msec QT Interval: 425 msec QTC Interval: 421 msec P-R-T [place]: 37 - 72 - 31 degrees SINUS BRADYCARDIA BORDERLINE ECG Electronically Signed By: Dr Stepan Zarco Reji CLIFFORD ECG ORDERABLES Final Result [facility] * eGFR (05/10/2021 11:16 AM CDT) eGFR [...] LAB BLOOD ORDERABLES Final R esult [facility] [facility] ([place]) 1 [facility] Department [place] [address] * (ABNORMAL) Differential, auto (05/10/2021 11:16 AM [...] Final R esult [facility] ([place]) 1 [facility] Department of Laboratories [place], [place] [address] * Troponin T high-sensitivity series (baseline, 2hr, [...] LAB BLOOD ORDERABLES Final R esult [facility] [facility] ([place]) [address] [place] [address] * Sepsis Lactate w/ Reflex (05/10/2021 11:16 AM CDT) Sepsis Lactate 0.9 0.7 - 2.0 mmol/L [facility] Blood specimen (specimen) 05/10/2021 11:16 AM CDT 05/10/2021 11:26 AM CDT Reji CLIFFORD LAB BLOOD ORDERABLES Final R esult Performing Organization Address City/[facility]/ZIP Co de Phone Number [facility] [address] [place] [address] * Lipase (05/10/2021 11:16 AM CDT) Lipase 20 10 - 99 Units/L [facility] Blood specimen (specimen) 05/10/2021 11:16 AM CDT 05/10/2021 11:26 AM CDT Reji CLIFFORD LAB BLOOD ORDERABLES Final R esult Performing Organization Address City/[facility]/ZIP Co de Phone Number [facility] ([place]) [address] [place] [id number] * Comprehensive metabolic panel (05/10/2021 11:16 AM [...] [facility] LAB BLOOD ORDERABLES Final R esult [facility] ([place]) [address] [facility] Department [place] [address] * (ABNORMAL) CBC with auto differential (05/10/2021 [...] Final R esult [facility] ([place]) [address] [facility] Department [place] [address] documented in this encounter Visit Diagnoses Not on filedocumented in this encounter Admitting Diagnoses Diagnosis Cholecystitis Cholecystitis, unspecified Elevated liver enzymes Other nonspecific abnormal serum enzyme levels Choledocholithiasis with acute cholecystitis Calculus of bile duct with acute cholecystitis without mention of obstruction documented in this encounter Administered Medications Inactive Administered Medications - up to 3 most recent administrations Medication Order MAR Action Action Date Dose Rate Site bupivacaine (MARCAINE) 0.5 % (5 mg/mL) preservative free injection As needed, Starting on Tue05/11/21 at 0942, Intra-Op Given 05/11/2021 9:15 AM CDT 8 mL Surgical Site cloNIDine (CATAPRES) tablet 0.3 mg 0.3 [...] iodine/mL injection solution As needed, Starting on Tue05/11/21 at 0941, Intra-Op Given 05/11/2021 9:41 AM CDT 15 mL Surgical Site ipratropium-albuteroL (DUO-NEB) 0.5-2.5 mg/3 mL nebulizer solution 3 mL 3 mL, nebulization, Every 6 hours PRN (manager corporate responsibility), wheezing, shortness of breath, Starting on Ailyn 05/14/21 at 0915, Indications: SOBIndications:SOB loratadine (CLARITIN) tablet [...] Given 05/13/2021 8:17 AM CDT 5 mg sodium chloride 0.9% irrigation As needed, Starting on Tue05/11/21 at 0938, Intra-Op Given 05/11/2021 9:57 AM CDT 200 mL Surgical Site Given 05/11/2021 9:38 AM CDT 500 mL [facility]ges rgical Site traMADoL (ULTRAM) tablet 50 mg 50 mg, [...] Provider)223 (Given - Provider: Elodia Perry, DEANN) 194 (Given - Provider: Lupe Larson, DEANN) famotidine (PEPCID) injection 20 mg (CANCELED) 20 mg, intravenous, Administer over 2 Minutes, 2 times daily, First dose on Tue05/12/21 at 2100 2233 (Given - Provider: Elodia Perry RN) 08 (Given - Provider: Paty Quinn RN)194 (Given - Provider: Lupe Larson, DEANN) 0757 [...] Transfer Provider - Reason: Patient not available)1717 ([facility] Unhold - Provider: Automatic Transfer Provider) 0817 (Not Given - Provider: Paty Quinn RN - Reason: Patient/family refused) 0850 (Given - Provider: Julia Moreno, DEANN) furosemide (LASIX) tablet 20 mg (COMPLETED) 20 mg, oral, Once, On Ailyn 05/14/21 at 1000, For 1 dose 0932 (Given - Provider: Julia Moreno RN) gabapentin (NEURONTIN) capsule 300 mg 300 mg, oral, Nightly, First dose on Tue05/10/21 at 2100, Do not crush, break, or open. 1513 ([facility] Hold - Provider: Automatic Transfer Provider - Reason: Patient not available)1717 ([facility] Unhold - Provider: Automatic Transfer Provider)2229 (Given - Provider: Elodia Perry RN) 194 (Given - Provider: Lupe Larson, DEANN) hydrALAZINE (APRESOLINE) tablet 25 mg 25 mg, oral, 3 times daily, First dose on Tue05/13/21 at 1300, Indications: hypertension 1252 (Given - Provider: Paty Quinn, DEANN)1948 (Given - Provider: Lupe Larson, DEANN) 0756 (Given - Provider: Julia Moreno RN)1552 (Given - Provider: Julia Moreno RN) indomethacin (INDOCIN) 50 mg suppository 100 mg (COMPLETED) 100 mg, rectal, Once, On Tue05/12/21 at 1530, For 1 dose, Intra-Op, Refrigerate 1523 (Given - Provider: Linda Larson RN)1530 (Due) ipratropium-albuteroL (DUO-NEB) 0.5-2.5 mg/3 mL nebulizer solution 3 mL (CANCELED) 3 mL, nebulization, 4 times daily (manager corporate responsibility), First dose on Tue05/13/21 at 1500, Indications: SOB 1700 (Given - Provider: Anahi Westfall, COMMUNITY SUPPORT ASSOCIATE)1913 (Given - Provider: Yanni Ruiz RRT) 0907 (Given - Provider: Anahi Westfall RRT) loratadine (CLARITIN) tablet 10 mg 10 mg, [...] Quinn RN)1947 (Given - Provider: Lupe Larson, RN) 0756 (Given - Provider: Julia Moreno, DEANN) piperacillin-tazobactam (ZOSYN) 3.375 g in sodium chloride 0.9% 50 mL IVPB (CANCELED) 3.375 g, intravenous, at 130 mL/hr, Administer over 30 Minutes, Every 6 hours scheduled, First dose on 05/10/21 at 1330, Indications: Abdominal/Pelvic Infection 0548 (New Bag - Provider: Elodia Perry RN)1238 (New Bag - Provider: Paty Quinn, DEANN)1513 ([facility] Hold - Provider: Automatic Transfer Provider - Reason: Patient not available)1717 ([facility] Unhold - Provider: Automatic Transfer Provider)1808 (New Bag - Provider: Paty Quinn, RN)2356 (New Bag - Provider: Elodia Perry RN) 0551 (New Bag - Provider: Elodia Perry RN)1157 (New Bag - Provider: Paty Quinn, DEANN)1736 (New Bag - Provider: Paty Quinn, RN) 0037 (New Bag - Provider: Lupe Larson, RN)0536 (New Bag - Provider: Lupe Larson, RN) venlafaxine (EFFEXOR) tablet 75 mg 75 mg, oral, Nightly, First dose on 05/10/21 at 2100 1513 ([facility] Hold - Provider: Automatic Transfer Provider - Reason: Patient not available)1717 ([facility] Unhold - Provider: Automatic Transfer Provider)2229 (Given - Provider: Elodia Perry RN) 1947 (Given - Provider: Lupe Larson, DEANN) Continuous Medication Order 05/12/2021 05/13/2021 05/14/2021 Lactated Ringer's (LR) infusion (CANCELED) 125 mL/hr, intravenous, Continuous, Starting on Tue05/12/21 at 1645, Phase I 1653 (New Bag - Provider: Penny Maria, DEANN) sodium chloride 0.9% infusion (CANCELED) 30 mL/hr, [...] RN)1055 (Rate/Dose Change - Provider: Paty Quinn, DEANN)1232 (Rate/Dose Change - Provider: Paty Quinn, RN)2220 (New Bag - Provider: Lupe Larson, DEANN) PRN Medication Order 05/12/2021 05/13/2021 05/14/2021 cyclobenzaprine (FLEXERIL) tablet 10 mg 10 mg, oral, 3 times daily PRN, muscle spasms, Starting on Tue05/10/21 at 1607 1513 ([facility] Hold - Provider: Automatic Transfer Provider - Reason: Patient not available)1717 ([facility] Unhold - Provider: Automatic Transfer Provider) diazePAM (VALIUM) tablet 5 mg 5 mg, oral, Every 8 hours PRN, anxiety, Starting on Tue05/10/21 at 1607 1513 ([facility] Hold - Provider: Automatic Transfer Provider - Reason: Patient not available)1717 ([facility] Unhold - Provider: Automatic Transfer Provider) docusate sodium (COLACE) capsule 100 mg 100 mg, oral, 2 times daily PRN, constipation, Starting on Tue05/10/21 at 1357, Indications: constipation 1513 ([facility] Hold - Provider: Automatic Transfer Provider - Reason: Patient not available)1716 ([facility] Unhold - Provider: Automatic Transfer Provider) HYDROmorphone (DILAUDID) injection 0.5 mg 0.5 mg, intravenous, Administer over 2 Minutes, Every 3 hours PRN, 1st line for pain, Starting on 05/10/21 at 1357, Indications: Pain 1513 ([facility] Hold - Provider: Automatic Transfer Provider - Reason: Patient not available)1716 ([facility] Unhold - Provider: Automatic Transfer Provider) iohexoL (OMNIPAQUE) 240 mg iodine/mL injection solution 50 mL (COMPLETED) 50 mL, intrahepatic, Once in imaging, contrast, Starting on Tue05/12/21 at 1604, For 1 dose 1605 (Contrast Given - Provider: Rosario Winston, RT - Comment: LOT: [id number]: 11/20/2023) iohexoL (OMNIPAQUE) 240 mg iodine/mL injection solution (CANCELED) As needed, Starting on Tue05/12/21 at 1543, Intra-Op 1543 (Given - Provider: Nunu Steen MD) ipratropium-albuteroL (DUO-NEB) 0.5-2.5 mg/3 mL nebulizer solution 3 mL 3 mL, nebulization, Every 6 hours PRN (manager corporate responsibility), wheezing, shortness of breath, Starting on Ailyn 05/14/21 at 0915, Indications: SOB meloxicam (MOBIC) tablet 15 mg 15 mg, oral, Daily PRN, 1st line for pain, Starting on Tue05/10/21 at 1607 1513 ([facility] Hold - Provider: Automatic Transfer Provider - Reason: Patient not available)1716 ([facility] Unhold - Provider: Automatic Transfer Provider) menthol (HALLS) 6.8 mg lozenge lozenge 6.8 mg 6.8 mg (1 lozenge), mouth/throat, Every 2 hours PRN, sore throat, Starting on 05/11/21 at 1717 1513 ([facility] Hold - Provider: Automatic Transfer Provider - Reason: Patient not available)1716 ([facility] Unhold - Provider: Automatic Transfer Provider) ondansetron (ZOFRAN) injection 4 mg(Linked Group 1) 4 mg, intravenous, Administer over 2 Minutes, Every 6 hours PRN, nausea, vomiting, if not tolerating PO, Starting on 05/10/21 at 1357, Indications: Nausea and Vomiting 1513 ([facility] Hold - Provider: Automatic Transfer Provider - Reason: Patient not available)1531 (Given - Provider: Javier Vizcaino CRNA)1717 ([facility] Unhold - Provider: Automatic Transfer Provider) ondansetron ODT (ZOFRAN-ODT) disintegrating tablet 4 mg(Linked Group 1) 4 mg, oral, Every 6 hours PRN, nausea, vomiting, Starting on 05/10/21 at 1357, Indications: Nausea and Vomiting 1513 ([facility] Hold - Provider: Automatic Transfer Provider - Reason: Patient not available)1531 (See Alternative - Provider: Javier Vizcaino CRNA)1717 ([facility] Unhold - Provider: Automatic Transfer Provider) traMADoL (ULTRAM) tablet 50 mg 50 mg, oral, Every 6 hours PRN, 2nd line for pain, Starting on 05/10/21 at 1608 1513 ([facility] Hold - Provider: Automatic Transfer Provider - Reason: Patient not available)1717 ([facility] Unhold - Provider: Automatic Transfer Provider) Linked [...] 21 furosemide (LASIX) tablet 20 mg 1 ipratropium-albuteroL (DUO-N EB) 0.5-2.5 mg/3 mL nebulizer solution 3 mL 2 05/14/2021 05/13/20 21 hydrALAZINE (APRESOLINE) tablet 25 mg 1 05/2021 famotidine (PEPCID) injection 20 mg 1 05/12 fentaNYL (SUBLIMAZE) preserv ative free injection 25 mcg 2 05/12/2021 05/11/2021 indomethacin (INDOCIN) 50 mg suppository 100 mg 1 05/12/2021 iohexoL (OMNIPAQUE) 240 mg i odine/mL injection solution 1 05/12/2021 iohexoL (OMNIPAQUE) 240 mg i odine/mL injection solution 50 mL 2 05/12/2021 05/11/2021 Lactated Ringer's (LR) infusion 2 1 05/10/2021 metoclopramide (REGLAN) injection 10 mg 1 0 05/12/2021 naloxone (NARCAN) 0.4 mg/mL injection 0.04-0.4 mg 2 05/12/2021 05/11/2021 sodium chloride 0.9% infusion 2 05/12/2021 menthol (HALLS) 6.8 mg lozen ge lozenge 6.8 mg 1 05/11/2021 ondansetron (ZOFRAN) injection 4 mg 3 05/1105/10/2021 cloNIDine (CATAPRES) tablet 0.3 mg 1 2020 [...] 05/10/2021 documented in this encounter Care Teams Leasing Sales Consultant Relationship Specialty Start Date End Date Brandon Chavez MD PCP - General 03/26/21 documented as of this encounter
--- OUTSIDE RECORDS SUMMARY | 2024-10-27 10:57 | XMS_ITS | Encounter Summary ---
Author Organization [facility] Healthcare Address [address] [place] [address] Care Team Providers Care Collection Clerk Name Role Phone Unavailable Primary Care Provider Unavailabl e Encounter Details Date Type Department Care Team (Late st Contact Info) Description 12/14/2006 9:57 AM MINE ANALYST - 12/14/2006 2:50 PM MINE ANALYST Hospital Encounter [facility] CLINCONJennyfer Ruiz, Susie Esparza, Emi Serrato MD [address] [place] [id number] Social History Tobacco Use Types Packs/Day Years Used Date Smoking Tobacco: Never Assessed Comments Unknown Sex and Gender Information Value Date Recorded Sex Assigned at Not on file Legal Sex Female 12:50 AM MINE ANALYST Gender Identity Not on file Sexual Orientation Not on file documented as of this encounter Plan of Treatment Not on file documented as of this encounter Visit Diagnoses Not on filedocumented in this encounter
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
--- OUTSIDE RECORDS SUMMARY | 2024-10-27 10:57 | XMS_ITS | Encounter Summary ---
Author Organization [facility] Healthcare Address [address] [place] [address] Care Team Providers Care Teacher Of Family And Consumer Science Name Role Phone Hung Pereira SEED SPECIALIST Primary Care Provider Reason for Visit * Reason Comments PT Treatment Encounter Details Date Type Department Care Team (Late st Contact Info) Description 10/08/2020 7:45 AM SPINDRAW OPERATOR Therapy [facility] Physical Therapy [address] [facility] [place] [address] Joshua Cox, PT Cervical spondylosis wthout myelopathy [...] on file Legal Sex Female 12:50 AM SPINDRAW OPERATOR Gender Identity Not on file Sexual Orientation Not on file documented as of this encounter Progress Notes * Joshua Cox, PT - 10/08/2020 7:45 AM CST PT Progress Note Joselyn Amado 1960 Subjective: Presently the patient reports that she is experiencing aching pain in the are of the left cervical paraspinals and UT, but notes that there is burning pain near the base of the left cervical region. Patient reports experiencing tightness in the area as well. No radicular symptoms are noted. Pain: 6-7/10 Left cervical/thoracic Objective: See Treatment Below Posture: Patient presents with moderated forward head this date. Patient exhibits slow, guarded cervical movements ?? Cervical ROM: -Flexion: 35 deg -Extension: 35 deg -Left Lateral Flexion: 30 deg -Right Lateral Flexion: 35 deg -Left Rotation: 35 deg -Right Rotation: 30 deg *Cervical movements are guarded ?? Neurological: -Reflexes: Biceps/Brachioradialis reflexes test 2+ bilaterally -Sensation: Tests intact to light touch in bilateral UE -Myotomes: Cervical myotomes test WNL ?? UE strength: Bilateral UE strength grades 5/5 ?? Palpation: Tenderness with increased contraction primarily left UT ?? Neck Disability Index Score: 54% Treatment Provided: Consisted of objective measurements, this date, and treatment which has included the following: Modalities: -MHP supine to cervical x 10 minutes -US to L UT/cervical paraspinals x 8 minutes -Pre-mod electrical stim to B UT, with MHP, to aid in decreased pain* Exercise: -Cervical AROM - Performed at home this date -UT stretch - Performed at home this date -Cervical/upper thoracic stretch* -Shoulder rolls* Manual: -Supine manual stretching to cervical spine* -SubOccipital release* -IASTM to L UT* -Kinesiotape to left UT/thoracic paraspinals Treatment will progress to include: -Isometric cervical exercise -UE strengthening. Assessment: Ms. Amado has tolerated treatment with decreased reports of pain, in previous treatments, but remains guarded during movement. Cervical AROM has shown improvement albeit slight. Trigger point activity is palpable primarily mid left UT at this time. The patient appears to be compliant with home exercise, as evidenced by objective improvement, but it would appear that progressions may continue to be slowed due to subjective complaints. Goals STG 1:: Patient to report left cervical/UT pain decreased to a level of 4-5/10, when increased, to aid in improved ability to perform ADLs Goal status: Ongoing STG 2:: Patient to improve cervical AROM by 10-15 degrees in 1-2 weeks Goal status: Improving STG 3:: Patient to maintain UE strength of 5/5 to aid in ADLs Goal status: Met STG 4:: Patient to teach back HEP with minimal cues Goal status: Met LTG 1:: Patient to report left cervical/UT pain decreased to 2/10, when increased, by d/c Goal status: Ongoing LTG 2:: Patient to improve cervical AROM to WNL throughout by d/c Goal status: Improving LTG 3:: Patient to be able to perform driving and ADLs with decreased guarding of cervical movements Goal status: Ongoing LTG 4:: Patient to improve NDI score to 20% by d/c Goal status: Improving Plan: Cont per POC Start Time: 0750 End Time: 0830 Joshua Cox PT DRAW OPERATOR documented in this encounter Plan of Treatment Not on file documented as of this encounter Visit Diagnoses Diagnosis Cervical spondylosis wthout myelopathy or radiculopathy- Primary Strain of neck muscle, initial encounter documented in this encounter Care Teams Teacher Of Family And Consumer Science Relationship Specialty Start Date End Date Hung Pereira NP [address] [facility] [address] ORTIZ B [facility] [address] [place] [address] PCP - General 08/07/20 03/25/21 documented as of this encounter
--- OUTSIDE RECORDS SUMMARY | 2024-10-27 10:57 | XMS_ITS | Encounter Summary ---
Author Organization [facility] Address [address] [place] [address] Care Team Providers Care Marine Fire Fighter Name Role Phone Hung Pereira WIRE DRAWING DIE MAKER Primary Care Provider [phone] Encounter Details Date Type Department Care Team (Late st Contact Info) Description 09/02/2020 Orders Only [facility] [id number] [facility] [address] [place] [address] Cheryl Wasserman MA Social History Tobacco Use Types Packs/Day Years Used Date Smoking Tobacco: Every Day Comments No Sex and Gender Information Value Date Recorded Sex Assigned at Not on file Legal Sex Female 12:50 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 tapentadol ER (NUCYNTA ER) 100 mg 12 hr tablet Take 1 tablet (100 mg total) by mouth 2 times daily 01/26/2017 venlafaxine (EFFEXOR) 75 mg tablet Take 1 tablet (75 mg total) by mouth nightly ergocalciferol (VITAMIN D) 50,000 unit capsule diazePAM (VALIUM) 5 mg tablet Take 1 tablet (5 mg total) by mouth 3 (three) times a day as needed 02/28/2017 cloNIDine (CATAPRES) 0.3 mg tablet Take 1 tablet (0.3 mg total) by mouth daily naproxen (NAPROSYN) 500 mg tablet TK 1 T PO BID 07/29/2020 0 traMADoL (ULTRAM) 50 mg tablet Take 50 mg by mouth every 6 (six) hours as needed 12/24/2019 1 metroNIDAZOLE (METROGEL) 0.75 % vaginal gel INSERT 1 APPLICATORFUL VAGINALLY QHS 06/27/2020 1 ibuprofen (ADVIL,MOTRIN) 400 mg tablet Take 400 mg by mouth every 6 (six) hours as needed 0 HYDROcodone-ibup rofen (VICOPROFEN) 7.5-200 mg per tablet Take 1 tablet by mouth every 6 (six) hours as needed 07/20/2020 1 added in this encounter Care Teams Marine Fire Fighter Relationship Specialty Start Date End Date Hung Pereira NP [address] [facility] [address] [place] [address] PCP - General 08/07/20 03/25/21 documented as of this encounter
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
--- OUTSIDE RECORDS SUMMARY | 2024-10-27 10:57 | XMS_ITS | Encounter Summary ---
Author Organization [facility] Healthcare Address [address] [place] [address] Care Team Providers Care Senior Reservoir Engineer Name Role Phone Unavailable Primary Care Provider Unavailabl e Encounter Details Date Type Department Care Team (Late st Contact Info) Description 12/13/2012 7:40 PM BLOOD BANK SUPERVISOR - 12/13/2012 11:59 PM BLOOD BANK SUPERVISOR Hospital Encounter [facility] Musa Gao IV, MD [address] [place] [address] [phone] Other malaise and fatigue; Pernicious anemia; Other specified transient cerebral ischemias Social History Tobacco Use Types Packs/Day Years Used Date Smoking Tobacco: Never Assessed Comments Unknown Sex and Gender Information Value Date Recorded Sex Assigned at Not on file 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 Sex Female 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 Gender Identity Not on file Sexual Orientation Not on file documented as of this encounter Plan of Treatment Not on file documented as of this encounter Procedures Procedure Name Priority Date/Time Associated Diagnosis Comments SERUM THYROID-STIMULATING HORMONE (TSH) Routine 12/13/2012 7:55 PM BLOOD BANK SUPERVISOR SERUM IRON BINDING CAPACITY Routine 12/13/2012 7:55 PM BLOOD BANK SUPERVISOR SERUM FOLIC ACID Routine 12/13/2012 7:55 PM BLOOD BANK SUPERVISOR SERUM COMPREHENSIVE METABOLIC PANEL Routine 12/13/2012 7:55 PM BLOOD BANK SUPERVISOR PLASMA PROTHROMBIN TIME (PT) Routine 12/13/2012 7:55 PM BLOOD BANK SUPERVISOR PLASMA PARTIAL THROMBOPLASTIN TIME (PTT) Routine 12/13/2012 7:55 PM BLOOD BANK SUPERVISOR BLOOD WBC CELL MORPHOLOGIC EXAM, AUTO Routine 12/13/2012 7:55 PM BLOOD BANK SUPERVISOR BLOOD CELL COUNT (CBC) Routine 3 7:55 PM BLOOD BANK SUPERVISOR SERUM CYANOCOBALAMIN (VITAMIN B12) Routine 12/13/2012 1:55 PM BLOOD BANK SUPERVISOR DISCHARGE LABORATORY CUMULATIVE REPORT Routine 12/13/2012 12:00 AM BLOOD BANK SUPERVISOR documented in this encounter Results * Plasma partial thromboplastin time (PTT) (12/13/2012 7:55 PM BLOOD BANK SUPERVISOR) APTT 30.1 -<34. seconds HISTOR ICAL RESULTS Plasma 12/13/2012 7:55 PM BLOOD BANK SUPERVISOR us Historical Provider LAB BLOOD ORDERABLES Shwetha regalado Result HISTORICAL RESULTS * Plasma prothrombin time (PT) (12/13/2012 7:55 PM BLOOD BANK SUPERVISOR) Prothrombin time (PT) 12.6 11.4 - 14.0 seconds HISTORICAL RESULTS INR 0.99 HISTORICAL RESULTS Comment: RECOMMENDED RANGES FOR PROTIME INR: NOTE: THE INR HAS BEEN VALIDATED ONLY FOR PATIENTS ON STABLE ORAL ?ANTICOAGULANT THERAPY. ?2.0 - 3.0 ??PROPHYLAXIS OF VENOUS THROMBOSIS (HIGH RISK SURGERY) ?2.0 - 3.0 ??TREATMENT OF VENOUS THROMBOSIS ?2.0 - 3.0 ??TREATMENT OF PULMONARY EMBOLISM ?2.0 - 3.0 ??PREVENTION OF SYSTEMIC EMBOLISM ? TISSUE HEART VALVES ? AMI (TO PREVENT SYSTEMIC EMBOLISM)* ? VALVULAR HEART DISEASE ? ATRIAL FIBRILLATION ?2.5 - 3.5 ??MECHANICAL PROSTHETIC VALVES (HIGH RISK) ?2.0 - 3.0 ??BILEAFLET MECHANICAL VALVE IN AORTIC POSITION *If oral anticoagulant therapy is elected to prevent recurrent myocardial infarction, an INR of 2.5 to 3.5 is recommended, consistent with Food and Drug Administration recommendations. Plasma 12/13/2012 7:55 PM BLOOD BANK SUPERVISOR Result [facility] Historical Provider LAB BLOOD ORDERABLES Shwetha l Result Performing Organization Address [facility] de Phone Number HISTORICAL RESULTS * Serum iron binding capacity (12/13/2012 7:55 PM BLOOD BANK SUPERVISOR) Iron 77 24 - 152 mcg/dl HISTORICAL RESULTS TIBC 299 199 - 474 mcg/dl HISTORICAL RESULTS Iron saturation 26 5 - 45 % HIST ORICAL RESULTS Serum 12/13/2012 7:55 PM BLOOD BANK SUPERVISOR Result [facility] Historical Provider LAB BLOOD ORDERABLES Shwetha l Result Performing Organization Address [facility] de Phone Number HISTORICAL RESULTS * Serum thyroid-stimulating hormone (TSH) (12/13/2012 7:55 PM BLOOD BANK SUPERVISOR) TSH 1.80 0.35 - 4.80 mcIUnits/ml HISTORICAL RESULTS Serum 12/13/2012 7:55 PM BLOOD BANK SUPERVISOR Result [facility] Historical Provider LAB BLOOD ORDERABLES Shwetha l Result Performing Organization Address [facility] de Phone Number HISTORICAL RESULTS * Serum folic acid (12/13/2012 7:55 PM BLOOD BANK SUPERVISOR) Folic acid 13.9 >5.4 mcg/L HISTORIC AL RESULTS Serum 12/13/2012 7:55 PM BLOOD BANK SUPERVISOR Result [facility] Historical Provider LAB BLOOD ORDERABLES Shwetha l Result HISTORICAL RESULTS * (ABNORMAL) Blood cell count (CBC) (12/13/2012 7:55 PM BLOOD BANK SUPERVISOR) WBC 11.9(H) 4.0 - 10.5 K/cumm HISTORICAL RESULTS RBC 4.94 4.20 - 5.40 M/cumm HISTORICAL RESULTS Hgb 13.1 12.0 - 16.0 g/dl HISTORICAL RESULTS Hct 37.8 37.0 - 47.0 % HISTORICAL RESULTS MCV 76.5(L) 77.0 - 97.0 fl HISTORICAL RESULTS MCH 26.5 23.0 - 34.0 pg HISTORICAL RESULTS MCHC 34.7 32.0 - 36.0 g/dl HISTORICAL RESULTS Rdw 14.1 11.5 - 14.5 % HISTORICAL RESULTS Platelets 264 150 - 451 K/cumm HISTORICAL RESULTS MPV 9.5 7.4 - 10.4 fl HISTORICAL RESULTS Blood specimen (specimen) 12/13/2012 7:55 PM BLOOD BANK SUPERVISOR Historical Provider LAB BLOOD ORDERABLES Shwetha l Result Performing Organization Address [facility] Co de Phone Number HISTORICAL RESULTS * (ABNORMAL) Blood WBC cell morphologic exam, auto (12/13/2012 7:55 PM BLOOD BANK SUPERVISOR) Pathologist [facility] Lymphocytes 31.5 25.0 - 33.0 % HISTORICAL RESULTS Monos 5.8 1.0 - 13.0 % HISTORICAL RESULTS Neutrophils 53.8(L) 54.0 - 69.0 % HISTORICAL RESULTS Eosinophils 8.2 0.0 - 10.0 % HISTORICAL RESULTS Basophils 0.4 0.0 - 1.0 % HISTORICAL RESULTS Young granulocytes, % 0.3 % HISTORICAL RESULTS Lymphocytes, abs 3.8 K/cumm HIS TORICAL RESULTS Monocytes, absolute 0.7 K/cumm HISTORICAL RESULTS Neutrophils, abs 6.4 K/cumm HIS TORICAL RESULTS Eosinophils, abs 1.0 cells/cumm HI STORICAL RESULTS Basophils, abs 0.1 K/cumm HISTO RICAL RESULTS Young granulocyte 0 K/cumm HISTORICAL RESULTS Blood specimen (specimen) 12/13/2012 7:55 PM BLOOD BANK SUPERVISOR Historical Provider LAB BLOOD ORDERABLES Shwetha l Result HISTORICAL RESULTS * (ABNORMAL) Serum comprehensive metabolic panel (12/13/2012 7:55 PM BLOOD BANK SUPERVISOR) BUN 11.0 6.0 - 23.0 mg/dl HISTORICAL RESULTS Comment:FAXED TO DR HARRISON [phone] [id number] 12/14/12 08:33 [id number] Sodium 139 134 - 143 mmol/L HISTORICAL RESULTS Potassium, sr 3.9 3.4 - 5.0 mmol/L HISTORICAL RESULTS Chloride 105 99 - 108 mmol/L HISTORICAL RESULTS CO2 32 23 - 32 mmol/L HISTORICAL RESULTS Glucose, fasting 97 70 - 110 mg/dl HISTORICAL RESULTS Creatinine 1.21 0.60 - 1.30 mg/dl HISTORICAL RESULTS Comment: eGFR:50 ml/min/1.73sq.m if non -Cuban. eGFR:61 ml/min/1.73sq.m if -Cuban. AVE GFR for 50-59 yr. age group: ??93 ml/min/1.73sq.m Calculated using MDRD Equation BUN/creat ratio 9(L) 10 - 20 HIST ORICAL RESULTS A. gap 6(L) 7 - 14 mmol/L HISTORICAL RESULTS Protein, sr 7.3 6.4 - 8.0 g/dl HISTORICAL RESULTS Alb 3.5 3.3 - 4.5 g/dl HISTORICAL RESULTS Alb/glob ratio 0.9(L) 1.1 - 1.8 HISTO RICAL RESULTS Calcium 9.1 8.6 - 9.8 mg/dl HISTORICAL RESULTS Bilirubin 0.2 0.0 - 1.1 mg/dl HISTORICAL RESULTS Alk phos 121 44 - 125 Units/L HISTORICAL RESULTS AST 17 4 - 32 Units/L HISTORICAL RESULTS ALT 34 16 - 66 Units/L HISTORICAL RESULTS Serum 12/13/2012 7:55 PM BLOOD BANK SUPERVISOR Historical Provider LAB BLOOD ORDERABLES Shwetha l Result HISTORICAL RESULTS * Serum cyanocobalamin (vitamin B12) (12/13/2012 1:55 PM BLOOD BANK SUPERVISOR) Cyanocobalamin (Vit B12) 397 211 - 911 pg/ml HISTORICAL RESULTS Serum 12/13/2012 1:55 PM BLOOD BANK SUPERVISOR Narrative HISTORICAL RESULTS - 12/13/2012 3:23 PM BLOOD BANK SUPERVISOR VIT B12 REFERENCE RANGE 211-911 pg/ml us Historical Provider MD LAB BLOOD ORDERABLES Shwetha fabricio Result HISTORICAL RESULTS * Discharge Laboratory Cumulative Report (12/13/2012 12:00 AM BLOOD BANK SUPERVISOR) 12/13/2012 Narrative HISTORICAL RESULTS - 12/15/2012 12:24 AM BLOOD BANK SUPERVISOR Patient No: [id number] ? [facility] Patient Name: KASHMIR ARGUELLO ? [facility] Healthcare Age: 52 YRS ?: 1960 ?Sex:F ?[address] )[phone] ?? Adm Dt: 12/13/2012 ?[place], [place] ??[address] Created: 12/15/2012 ??0024 ?? Pt. Type: R ? Discharge Dt: 12/13/2012 ? Pathologists: Nanette Jara MD Admit Dr. Manuel Alicia: ? BLOOD CELL COUNTS ?Collection Date: ?12/13/12 ?Collection Time: ?1955 ? Ref Range: ?? Units: [4.00-10.50] /CMM ? WBC X 10^3 ? 11.91 H [4.20-5.40] ??/CMM ? RBC X 10^6 ?4.94 [12.0-16.0] ??G/DL ? HGB ? 13.1 [37.0-47.0] ??% ?HCT ? 37.8 [77.0-97.0] ??FL ? MCV ? 76.5 L [23.0-34.0] ??PG ? MCH ? 26.5 [32.0-36.0] ??% ?MCHC ?34.7 [11.5-14.5] ??% ?RDW ? 14.1 [150-451] ?? /CMM ? PLT X 10^3 ? 264 ?BLOOD CELL DIFFERENTIAL ?Collection Date: ?12/13/12 ?Collection Time: ?1955 ? Ref Range: ?? Units: [54.0-69.0] ??% ?NEUTROPHILS ? 53.8 L [25.0-33.0] ??% ?LYMPHOCYTES ? 31.5 [1.0-13.0] ??% ?MONOCYTES ?5.8 [0.0-10.0] ??% ?EOSINOPHILS ?8.2 [0.0-1.0] ?? % ?BASOPHILS ?0.4 ? /CMM ? A LYMPHOCYTE ? 3.8 ? % ?IMM GRAN % ? 0.3 ? /CMM ? A IMM GRAN ? 0.3 ? /CMM ? A MONOCYTE ? 0.7 ? /CMM ? A NEUTROPHIL ? 6.4 ? /CMM ? A EOSINOPHIL ? 1.0 ? /CMM ? A BASOPHIL ? 0.1 Footnotes and Symbols: L = Low, H = High ?? CONTINUED ?Page: ?? 1 Patient No: [id number] ? [facility] Patient Name: KASHMIR ARGUELLO ? [facility] Age: 52 YRS ?: 1960 ?Sex:F ?[address] )[phone] ?? Adm Dt: 12/13/2012 ?[place], [place] ??[address] Created: 12/15/2012 ??0024 ?? Pt. Type: R ? Discharge Dt: 12/13/2012 ? Pathologists: Nanette Jara MD Admit Dr. Jackson Dr: ? GENERAL CHEMISTRY ?Collection Date: ?12/13/12 ?Collection Time: ?1955 ? Ref Range: ?? Units: [134-143] ?? MMOL/L ? SODIUM ? 139 [3.4-5.0] ?? MMOL/L ? POTASSIUM ?3.9 [99.0-108.0] MMOL/L ? CHLORIDE ? 105.0 [23.0-32.0] ??MMOL/L ? TOTAL CO2 ? 32.0 ?? [7-14] ?MMOL/L ? ANION GAP ?6 L ??[70-110] ?? MG/DL ?GLUCOSE FASTING ? 97 [6.4-8.0] ?? G/DL ? TOTAL PROTEIN ?7.3 [3.3-4.5] ?? G/DL ? ALBUMIN ?3.5 [1.1-1.8] ?A/G RATIO ?0.9 L [8.6-9.8] ?? MG/DL ?CALCIUM ?9.1 [0.0-1.1] ?? MG/DL ?BILI TOTAL ? 0.2 ??[44-125] ?? U/L ?ALK PHOS ? 121 ??[24-152] ?? UG/DL ?IRON ?77 ?? [4-32] ?U/L ?AST(SGOT) ? 17 ??[16-66] ?U/L ?ALT(SGPT) ? 34 [6.0-23.0] ??MG/DL ?BUN ? 11.0 f ?12/13/12[address] FAX[address] TO [address] HARRISON [id number] 12/14/12 08:33 [id number] FOOTNOTE ADDED ON ?? 12/14/12 ?? AT 0833 BY [id number] ??[10-20] ? B/C RATIO ?9 L [0.60-1.30] ??MG/DL ?CREATININE ?1.21 f ?12/13/121954 eGFR:50 ml/min/1.73sq.m if non -Cuban. eGFR:61 ml/min/1.73sq.m if -Cuban. AVE GFR for 50-59 yr. age group: ??93 ml/min/1.73sq.m Calculated using MDRD Equation FOOTNOTE ADDED ON ?? 12/13/12 ?? AT 2040 BY 999 [199-474] ?? UG/DL ?TIBC ? 299 ?? [5-45] ?% ?% SATURATION ?26 Footnotes and Symbols: L = Low, f = Footnote ?? CONTINUED ?Page: ?? 2 Patient No: [id number] ? [facility] Patient Name: KASHMIR ARGUELLO ? [facility] Age: 52 YRS ?: 1960 ?Sex:F ?[address] )[phone] ?? Adm Dt: 12/13/2012 ?[place], [place] ??[address] Created: 12/15/2012 ??0024 ?? Pt. Type: R ? Discharge Dt: 12/13/2012 ? Pathologists: Nanette Jara MD Admit Dr. Jackson Dr: ?THYROID FUNCTION TESTS ?Collection Date: ?12/13/12 ?Collection Time: ?195 ? Ref Range: ?? Units: [0.35-4.80] ??uIU/ML ? TSH ? 1.80 ?SPECIAL CHEMISTRY ?Collection Date: ?12/13/12 ?Collection Time: ?1955 ? Ref Range: ?? Units: [211-911] ?? pg/ml ?VITAMIN B12 ?397 f [> ?5.4] ?? ng/ml ?FOLATE ?13.9 f Footnotes and Symbols: f = Footnote VITAMIN B12 (08/16/08 -- Current) VIT B12 REFERENCE RANGE 211-911 pg/ml FOLATE (12/22/09 -- Current) ?? CONTINUED ?Page: ?? 3 Patient No: [id number] ? [facility] Patient Name: KASHMIR ARGUELLO ? [facility] Healthcare Age: 52 YRS ?: 1960 ?Sex:F ?[address] )[phone] ?? Adm Dt: 12/13/2012 ?[place] ??[id number] Created: 12/15/2012 ??0024 ?? Pt. Type: R ? Discharge Dt: 12/13/2012 ? Pathologists: Nanette Jara MD Admit Dr. Manuel Alicia: ?COAGULATION ? Units: ?? PROTIME ?INR ?APTT PAT ? Low: ??[11.4-14.0] ? [< ?? 34.8] ? Ref Range: ? SECS ?SECS ? 12/13/121954 ?12.6 ? 0.99 f ? 30.1 Footnotes and Symbols: f = Footnote INR (05/26/00 -- Current) RECOMMENDED RANGES FOR PROTIME INR: NOTE: THE INR HAS BEEN VALIDATED ONLY FOR PATIENTS ON STABLE ORAL ?ANTICOAGULANT THERAPY. ?2.0 - 3.0 ??PROPHYLAXIS OF VENOUS THROMBOSIS (HIGH RISK SURGERY) ?2.0 - 3.0 ??TREATMENT OF VENOUS THROMBOSIS ?2.0 - 3.0 ??TREATMENT OF PULMONARY EMBOLISM ?2.0 - 3.0 ??PREVENTION OF SYSTEMIC EMBOLISM ? TISSUE HEART VALVES ? AMI (TO PREVENT SYSTEMIC EMBOLISM)* ? VALVULAR HEART DISEASE ? ATRIAL FIBRILLATION ?2.5 - 3.5 ??MECHANICAL PROSTHETIC VALVES (HIGH RISK) ?2.0 - 3.0 ??BILEAFLET MECHANICAL VALVE IN AORTIC POSITION *If oral anticoagulant therapy is elected to prevent recurrent myocardial infarction, an INR of 2.5 to 3.5 is recommended, consistent with Food and Drug Administration recommendations. ?? END OF CHART ? Page: ?? 4 us Historical Provider LAB BLOOD ORDERABLES Shwetha regalado Result HISTORICAL RESULTS documented in this encounter Visit Diagnoses Diagnosis Other malaise and fatigue Pernicious anemia Other specified transient cerebral ischemias documented in this encounter
--- OUTSIDE RECORDS SUMMARY | 2024-10-27 10:57 | XMS_ITS | Encounter Summary ---
Author Organization [facility] Healthcare Address [address] [place] [address] Care Team Providers Care Splunk Architect Name Role Phone Lori Sidhu MD Primary Care Provider [phone] Encounter Details Date Type Department Care Team (Late st Contact Info) Description 01/03/2017 6:17 PM REFLEXOLOGIST - 01/03/2017 7:41 PM REFLEXOLOGIST Emergency [facility] Emergency Department [address] [place] [address] Joshua Carson MD [address] [place] [address] Discharge Disposition: Discharge to home or self care Social History Tobacco Use Types Packs/Day Years Used Date Smoking Tobacco: Never Assessed Comments Unknown Sex and Gender Information Value Date Recorded Sex Assigned at Not on file Legal Sex Female 12:50 AM REFLEXOLOGIST Gender Identity Not on file Sexual Orientation Not on file documented as of this encounter Discharge Disposition Disposition Code Departure Means Destination Discharge to home or self care documented in this encounter Plan of Treatment Not on file documented as of this encounter Visit Diagnoses Not on filedocumented in this encounter Care Teams Splunk Architect Relationship Specialty Start Date End Date Lori Sidhu MD PCP - General 01/03/17 01/16/17 documented as of this encounter
--- OUTSIDE RECORDS SUMMARY | 2024-10-27 10:57 | XMS_ITS | Encounter Summary ---
Author Organization [facility] Healthcare Address [address] [place] [address] Care Team Providers Care Electrical Experimental Mechanic Name Role Phone Hung Pereira OFFICE SPEC Primary Care Provider Reason for Visit * Reason Comments PT Treatment Encounter Details Date Type Department Care Team (Late st Contact Info) Description 10/13/2020 7:45 AM LAUNCH LEADER Therapy [facility] Physical Therapy [address] [facility] [place] [address] Nae Dia, GUITAR TECHNICIAN Cervical spondylosis wthout myelopathy or radiculopathy (Primary Dx) Social History Tobacco Use Types Packs/Day Years Used Date Smoking Tobacco: Former Smokeless Tobacco: Never Comments:quit 2019 Alcohol Use Standard Drinks/Week Comments Not Currently 0 (1 standard drink = 0.6 oz pur e alcohol) Comments No Sex and Gender Information Value Date Recorded Sex Assigned at Not on file Legal Sex Female 12:50 AM LAUNCH LEADER Gender Identity Not on file Sexual Orientation Not on file documented as of this encounter Progress Notes * Nae Dia GUITAR TECHNICIAN - 10/13/2020 7:45 AM CST PT Progress Note Joselyn Amado 1960 Subjective: Pt states the pain woke her up last night and she could not sleep. States she also had to take the tape off because it was bothering her. Pain: 6-7/10 Left cervical/thoracic Objective: See Treatment Below Posture: Patient presents with moderated forward head this date. Patient exhibits slow, guarded cervical movements ?? Palpation: reveals moderate tightness to L upper trap and scapular muscles. Treatment Provided: Consisted of objective measurements, this date, and treatment which has included the following: Modalities: -MHP supine to cervical/upper back x 10 minutes -US to L UT/cervical paraspinals x 8 minutes * -Pre-mod electrical stim to B UT, with MHP, to aid in decreased pain Exercise: -Cervical AROM -UT stretch -Cervical/upper thoracic stretch -Shoulder rolls Manual: -Supine manual stretching to cervical spine -SubOccipital release -IASTM to L UT -Kinesiotape to left UT/thoracic paraspinals Treatment will progress to include: -Isometric cervical exercise -UE strengthening. Assessment: Pt tolerates well for treatment. Pt still having moderate tightness on the Left side. Discussed her set up at home for work and to try and stretch in between calls and working on computer. Plan: Cont per POC Start Time: 0 End Time: 839 Nae Dia PTA CH LEADER documented in this encounter Plan of Treatment Not on file documented as of this encounter Visit Diagnoses Diagnosis Cervical spondylosis wthout myelopathy or radiculopathy- Primary documented in this encounter Care Teams Electrical Experimental Mechanic Relationship Specialty Start Date End Date Hung Pereira NP [address] [facility] [address]TI[address] [address] PCP - General 08/07/20 03/25/21 documented as of this encounter
--- OUTSIDE RECORDS SUMMARY | 2024-10-27 10:57 | XMS_ITS | Encounter Summary ---
Author Organization [facility] Healthcare Address [address] [place] [address] Care Team Providers Care Psychometric Examiner Name Role Phone Tre Rodriguez MD Primary Care Provider [phone] Reason for Referral * Diagnostic Imaging (Routine) - Closed Specialty Diagnoses / Procedures Referred By Contac t Referred To Contact Diagnoses Tobacco use Procedures XR Chest Pa Lateral 2 Views Hung Pereira NP Phone: tel: fax: [address] [phone] Referral ID Status Reason Start Date Expiration Date Visits Re quested Visits Authorized [id number] Closed 07/05/2018 01/14/2020 1 1 Reason for Visit * Diagnostic Imaging (Routine) - Closed Specialty Diagnoses / Procedures Referred By Contac t Referred To Contact Diagnoses Tobacco use Procedures XR Chest Pa Lateral 2 Views Hung Pereira NP Phone: tel: fax: [address] [phone] Referral ID Status Reason Start Date Expiration Date Visits Re quested Visits Authorized [id number] Closed 07/05/2018 01/14/2020 1 1 Encounter Details Date Type Department Care Team (Latest Contact Info) Description 07/05/2018 10:41 AM CDT - 07/05/2018 11:59 PM CDT Hospital Encounter [facility] [address] [place] [address] Hung Pereira NP [address] [facility] [address] ANGEL Auguste [facility] [address] [place] [address] Brandon Dumont MD [address] [facility] ANGEL Auguste [facility] [address] [place] [address] Tobacco use Discharge Disposition: Discharge to home or self care Social History Tobacco Use Types Packs/Day Years Used Date Smoking Tobacco: Every Day Comments Unknown Sex and Gender Information Value Date Recorded Sex Assigned at Not on file Legal Sex Female 12:50 AM CLIENT DEVELOPMENT MANAGER Gender Identity Not on file Sexual [...] VIEWS Schedule Routine, Read Routine (OP Routine) 07/05/2018 11:21 AM CDT Tobacco use documented in this encounter Results * XR Chest Pa Lateral 2 Views (07/05/2018 11:21 AM CDT) Anatomical Region Laterality Modality Body, Chest N/A Computed Radiogr aphy 07/05/2018 12:4 6 PM CDT Impressions 07/05/2018 12:46 PM CDT NO ACTIVE CARDIOPULMONARY DISEASE. Electronically signed by: Michael Davalos M.D. Narrative 07/05/2018 12:46 PM CDT XR CHEST PA LATERAL 2 VIEWS HISTORY: Tobacco use. ??Cough. COMPARISON: 07/26/2016 FINDINGS: PA frontal and lateral projections are obtained. The lungs are clear bilaterally with no focal infiltrates. The heart size and pulmonary vascularity are normal. Procedure Note Michael Davalos MD - 07/05/2018 XR CHEST PA LATERAL 2 VIEWS HISTORY: Tobacco use. Cough. COMPARISON: 07/26/2016 FINDINGS: PA frontal and lateral projections are obtained. The lungs are clear bilaterally with no focal infiltrates. The heart size and pulmonary vascularity are normal. IMPRESSION: NO ACTIVE CARDIOPULMONARY DISEASE. Electronically signed by: Michael Davalos M.D. [facility] GuymonSabihaNaye Pereira HIGH PRESSURE OPERATOR IMG XR PROCEDURES Final Resul t documented in this encounter Visit Diagnoses Diagnosis Tobacco use documented in this encounter Care Teams Psychometric Examiner Relationship Specialty Start Date End Date Tre Rodriguez MD PCP - General 01/17/17 08/06/20 documented as of this encounter
--- OUTSIDE RECORDS SUMMARY | 2024-10-27 10:57 | XMS_ITS | Encounter Summary ---
Author Organization [facility] Healthcare Address [address] [place] [address] Care Team Providers Care Hydrodynamicist Name Role Phone Tre Rodriguez MD Primary Care Provider [phone] Encounter Details Date Type Department Care Team (Latest Contact Info) Description 07/26/2017 7:39 AM CDT - 07/26/2017 11:59 PM CDT Hospital Encounter [facility] [phone] [place] [address] [place] [address] Discharge Disposition: Discharge to home or self care Social History Tobacco Use Types Packs/Day Years Used Date Smoking Tobacco: Every Day Comments Unknown Sex and Gender Information Value Date Recorded Sex Assigned at Not on file Legal Sex Female 12:50 AM BRUSH HOLDER ASSEMBLER Gender Identity Not on file Sexual [...] Procedure Name Priority Date/Time Associated Diagnosis Comments MEASLES IGG ANTIBODY Routine Gen Lab 07/26/2017 7:39 AM CDT RUBELLA IGG Routine Gen Lab 07/26/2017 7:39 AM CDT VARICELLA ZOSTER ANTIBODY, IGG Routine Gen Lab 07/26/2017 7:39 AM CDT MUMPS IGG ANTIBODY Routine Gen Lab 07/26/2017 7: 39 AM CDT DISCHARGE LABORATORY CUMULATIVE REPORT 07/26/2017 12:00 AM CDT documented in this encounter Results * (ABNORMAL) Mumps antibody, IgG (07/26/2017 7:39 AM CDT) Mumps IgG Positive( A) Negative [facility] Comment: Interpretive Data Negative: No detectable IgG antibody to mumps. Such individuals are presumed to be uninfected with the mumps and to be susceptible to primary infection. Equivocal: Presence or absence of the Mumps IgG antibody cannot be determined. Positive: Indicates presence of detectable IgG antibody to mumps. Indicative of current or previous infection or vaccination. The individual may be at risk of transmitting mumps infection, but is not necessarily currently contagious. Current interpretive data was last revised on 2017. Blood specimen (specimen) 07/26/2017 7:39 AM CDT 07/26/2017 2:45 PM CDT Marjan Darden MD LAB MICROBIOLOGY - GENERAL O RDERABLES Final Result Performing Organization Address City/[facility] Co de Phone Number [facility] Department [place] [address] * (ABNORMAL) Rubella antibody, IgG (07/26/2017 7:39 AM CDT) Rubella IgG Positive(A ) Negative [facility] Blood specimen (specimen) 07/26/2017 7:39 AM CDT 07/26/2017 2:45 PM CDT Marjan Darden MD LAB MICROBIOLOGY - GENERAL O RDERABLES Final Result Performing Organization Address City/State/[facility] de Phone Number [facility] Department [place] [address] * (ABNORMAL) Rubeola antibody IgG (07/26/2017 7:39 AM CDT) Measles IgG Positive(A ) Negative [facility] Blood specimen (specimen) 07/26/2017 7:39 AM CDT 07/26/2017 2:45 PM CDT us Marjan Darden MD LAB MICROBIOLOGY - GENERAL O RDERABLES Final Result Performing Organization Address [facility] de Phone Number [facility] [place] [address] * (ABNORMAL) Varicella zoster antibody, IgG (07/26/2017 7:39 AM CDT) Pathologist [facility] VZV IgG Positive( A) Negative [facility] Comment: Interpretive Data Negative: ??No detectable antibody to Varicella-zoster ? virus. ??Such individuals ? are presumed to be uninfected with VZV and to ? be susceptible to primary infection. Equivocal: Presence or absence of detectable antibodies ? to VZV IgG cannot be determined and the test ? should be repeated. Positive: ??Indicated presence of detectable antibody to ? VZV. ??Indicative of current ? or previous infection or vaccination. Current interpretive data was last revised on 2017. Blood specimen (specimen) 07/26/2017 7:39 AM CDT 07/26/2017 2:45 PM CDT us Marjan Darden MD LAB MICROBIOLOGY - GENERAL O RDERABLES Final Result Performing Organization Address [facility] de Phone Number [facility] Department [place] [address] * DISCHARGE LABORATORY CUMULATIVE REPORT (07/26/2017 12:00 AM CDT) Narrative 07/26/2017 12:00 AM CDT Ordered by an unspecified provider. us Historical Provider LAB BLOOD ORDERABLES Shwetha l Result documented in this encounter Visit Diagnoses Not on filedocumented in this encounter Care Teams Hydrodynamicist Relationship Specialty Start Date End Date Tre Rodriguez MD PCP - General 01/17/17 08/06/20 documented as of this encounter
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
--- OUTSIDE RECORDS SUMMARY | 2024-10-27 10:57 | XMS_ITS | Encounter Summary ---
Author Organization [facility] Healthcare Address [address] [place] [address] Care Team Providers Care Training And Development Professional Name Role Phone Hung Pereira CHROMOSOMAL DISORDERS COUNSELOR Primary Care Provider [phone] Reason for Visit * Reason Comments PT Treatment Encounter Details Date Type Department Care Team (Late st Contact Info) Description 09/29/2020 7:45 AM CLOTH PACKER Therapy [facility] Physical Therapy [address] [facility] [place] [address] Nae Dia, CORPORATE REAL ESTATE SPECIALIST Cervical spondylosis wthout myelopathy or radiculopathy (Primary Dx) Social History Tobacco Use Types Packs/Day Years Used Date Smoking Tobacco: Every Day Comments No Sex and Gender Information Value Date Recorded Sex Assigned at Not on file Legal Sex Female 12:50 AM CLOTH PACKER Gender Identity Not on file Sexual Orientation Not on file documented as of this encounter Progress Notes * Nae Dia CORPORATE REAL ESTATE SPECIALIST - 09/29/2020 7:45 AM CST PT Daily Treatment Note Joselyn Amado 1960 Subjective: Pt states the pain is much better over the weekend. Pain: 4.5/10 L neck/upper back Objective:see treatment below. Palpation: moderate tightness along L UT and cervical spine ROM: less guarding noted this date Treatment Provided: MHP supine to cervical x 10 minutes cervical AROM UT stretch cervical/upper thoracic stretch * shoulder rolls * Supine manual stretching to cervical spine Occipital release IASTM to L UT Pre-mod to the B UT, with MHP, to aid in decreased pain Treatment will progress to include isometric cervical exercise kinesiotaping as needed UE strengthening. Assessment: Pt tolerates well for treatment. Less guarding noted today. Plan: cont per POC Start Time: 0750 End Time: 844 Nae Dia PTA H PACKER documented in this encounter Plan of Treatment Not on file documented as of this encounter Visit Diagnoses Diagnosis Cervical spondylosis wthout myelopathy or radiculopathy- Primary documented in this encounter Care Teams Training And Development Professional Relationship Specialty Start Date End Date Hung Pereira NP [address] [address] [address] PCP - General 08/07/20 03/25/21 documented as of this encounter
--- OUTSIDE RECORDS SUMMARY | 2024-10-27 10:57 | XMS_ITS | Encounter Summary ---
Author Organization [facility] Healthcare Address [address] [place] [address] Care Team Providers Care Account Manager Name Role Phone Unavailable Primary Care Provider Unavailabl e Encounter Details Date Type Department Care Team (Late st Contact Info) Description 04/04/2012 5:15 PM CDT - 04/04/2012 11:59 PM CDT Hospital Encounter [facility] Colin Timmons MD [address] [address] Other malaise and fatigue Social History Tobacco Use Types Packs/Day Years Used Date Smoking Tobacco: Never Assessed Comments Unknown Sex and Gender Information Value Date Recorded Sex Assigned at Not on file Legal Sex Female 12:50 AM PRINCIPAL DATA ARCHITECT Gender Identity Not on file Sexual Orientation Not on file documented as of this encounter Plan of Treatment Not on file documented as of this encounter Visit Diagnoses Diagnosis Other malaise and fatigue documented in this encounter
--- OUTSIDE RECORDS SUMMARY | 2024-10-27 10:57 | XMS_ITS | Encounter Summary ---
Author Organization [facility] Healthcare Address [address] [place] [address] Care Team Providers Care Television Operator Name Role Phone Brandon Dumont MD Primary Care Provider [phone] Encounter Details Date Type Department Care Team (Late st Contact Info) Description 05/11/2021 8:48 AM CDT Anesthesia Event [facility] Operating Room [address] [place] [address] Abisai Moss MD [address] [place] [id number] Bryon Zapata, [facility] [id number] [address] Anesthesia Record Procedure Summary Procedure Name Responsible Anesthesiologist Anesthesia Start Time Anesthesia Stop Time LAPAROSCOPIC CHOLECYSTECTOMY WITH CHOLANGIOGRAM (Abdomen) Abisai Moss MD 05/11/21 0848 05/11/21 1033 Events Date Time Event Comment 05/11/2021 0832 0848 An Start 0848 In Room 0848 An Start Data 0855 An Induction The patient was reevaluated immediately before moderate or deep sedation use and before anesthesia induction. 0858 An Intubation 0859 Anesthesia Ready 0913 Proc Start 0913 Incision Start 1007 Proc Fin 1025 An Extubation 1026 an stop data 1026 Quick Note Placed on 6L/mi n oxygen via simple facemask for rest of case unless otherwise noted in subsequent Q-notes. Disregard any other intraoperative oxygen administration beyond this point that may have been auto-populated unless otherwise noted in subsequent Q-notes. 1028 Out of Room 1033 Handoff to RN I completed my handoff [...] disposition at the time of handoff: PACU 1033 An Stop Meds Name Total ketamine 10 mg/mL - 5 mL 50 mg lidocaine 2 % PF 80 mg rocuronium 30 mg propofol 160 mg dexmedeTOMIDine 20 mcg dexamethasone 10 mg/mL 4 mg phenylephrine 200 mcg glycopyrrolate 0.6 mg ondansetron (ZOFRAN) injection 4 mg 4 mg neostigmine 1 mg/mL 3 mg Lactated Ringer's (LR) infusion 700 mL * Agents Name O2 Air Sevoflurane Inspired Sevoflurane * Blood No blood administrations on file. Lines, Drains, and Airways Type Details Placement Removal Peripheral IV Placement Date: 05/10/21; Catheter Size: 22 G; Orientation: Left, Posterior; Location: Hand; Removal Date: 05/14/21; Removal Time: 1628; Removal Reason: Discharge 05/10/21 0000 by Lindsey Bates RN 05/14/21 1628 by Julia Moreno RN ETT Placement Date: 05/11/21; Placement Time: 0858 (created via procedure documentation); Mask Ventilation: 1; Technique: Video laryngoscopy; Type: ETT - single; Single Lumen Tube Size: 7 mm; Cuffed: Yes; Blade Size: 3; Location: Oral; Insertion Attempts: 1; Placement Verification: Auscultation, Capnometry; Airway Comment: Smooth atraumatic intubation.; Removal Date: 05/11/21; Removal Time: 1025 05/11/21 0858 by Bryon Zapata CRNA 05/11/21 1025 by Bryon Zapata CRNA RETIRED Surgical Site 05/11/21; 0935; Abdomen; 10/09/24 (Retired LDA, Removed/Completed by [facility] with LDA Utility); 1213 (Retired LDA, Removed/Completed by [facility] with LDA Utility) 05/11/21 0935 by Yuliya Masters RN 10/09/24 1213 by Discharge Provider, Automatic documented in this encounter Social History Tobacco Use Types Packs/Day Years Used Date Smoking Tobacco: Former Cigarettes Smokeless Tobacco: Never Comments:quit 2020 Alcohol Use Standard Drinks/Week Comments Not Currently 0 (1 standard drink = 0.6 oz pur e alcohol) Comments No Sex and Gender Information Value Date Recorded Sex Assigned at Not on file 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 Gender Identity Not on file Sexual Orientation Not on file documented as of this encounter OR Notes * Anesthesia Postprocedure Evaluation - Bryon Zapata CRNA - 05/11/2021 10:39 AM CDT Patient: Joselyn Amado Procedure Summary Date: 05/11/21 Room / Location: [address] OPERATING ROOM Anesthesia Start: 847 Anesthesia Stop: 1032 Procedure: LAPAROSCOPIC CHOLECYSTECTOMY WITH CHOLANGIOGRAM (N/A Abdomen) Diagnosis: (cholecystis) Providers: Abisai Moss MD Responsible Provider: Abisai Moss MD Anesthesia Type: general ASA Status: 3 Anesthesia Type: general Last vitals BP 120/71 Pulse 58 Temp 36.5 ??C (97.7 ??F) (Skin) Resp 20 SpO2 100% Anesthesia Post Evaluation Patient location during evaluation: PACU Patient participation: complete - patient participated Level of consciousness: fully awake Pain score: 0 Pain management: adequate Airway patency: adequate Evidence of recall: no Cardiovascular status: acceptable Respiratory status: acceptable Hydration status: acceptable Pt is: normothermic Nausea/Vomiting status: none No complications documented. * Anesthesia Procedure Notes - Bryon Zapata CRNA - 05/11/2021 9:10 AM CDTAssociated Order(s): Airway Airway Patient location: OR Urgency: elective Date/time: 05/11/2021 8:58 AM Indications for airway management: anesthesia Difficult airway: no Staff: Supervising provider: Abisai Moss MD Placed by: CHICO: Bryon Zapata CRNA Emergent airway documentation: Risks and benefits discussed: yes Consent obtained: yes Consent given by: patient Airway prep: Preoxygenated: yes Patient position: sniffing Mask difficulty assessment: 1 - vent by mask Spontaneous ventilation during airway: absent Sedation level during airway: GA Final airway details: Final airway type: endotracheal airway Tube type: ETT ETT size: 7.0 mm Cuffed: yes Technique used for successful ETT placement: video laryngoscopy Devices/Methods used in placement: intubating stylet Insertion site: oral Video blade type: Dockery Blade size: 3 Cormack-Lehane (video): grade I - full view of glottis Initial cuff pressure: 25 cm H2O Cuff inflated with: air ETT to gums: 20 cm Placement verified by: auscultation and CO2 detection Airway secured with: silk tape Number of attempts: 1 Additional comments: Smooth atraumatic intubation. * Anesthesia Preprocedure Evaluation - Bryon Zapata CRNA - 05/11/2021 8:08 AM CDT Images from the original note were not included. Anesthesia Evaluation Joselyn Amado is a 60 y.o. female Procedure(s): LAPAROSCOPIC CHOLECYSTECTOMY * No Diagnosis Codes entered * HISTORY HPI Denies family hx of anesthetic complications. Past Medical History Neurological + TIA (about 20 years ago. No residual deficit.) Number of TIA episodes: 1. + Psychiatric history - anxiety Comments: Negative for carotid stenosis in 2013. Cardiovascular Cardiac system: negative Respiratory + Current smoker - Counseled to abstain from smoking the day of surgery. Patient refrained from smoking on day of surgery. Hepatic / Heme Hepatic/Heme system: negative Gastrointestinal GI system: negative Renal / Renal/ system: negative Musculoskeletal/Pain + Chronic pain (Lumbar radiculopathy) - back pain. + Osteoarthritis Endocrine / Other Endocrine/Other system: negative Functional Capacity Functional capacity: 4-6 METs Day of Surgery assessments + Possibility of assessed - ruled out by patient's provided history. Review of Systems + chronic pain (Lumbar radiculopathy) Patient Active Problem List Diagnosis ??? Cigarette nicotine dependence, uncomplicated ??? Decrease in appetite ??? Degeneration of intervertebral disc of lumbar region ??? Irritable mood ??? Lumbar radiculopathy ??? Menopause present ??? Tobacco use ??? Referred otalgia of left ear ??? Allergic rhinitis ??? Cholecystitis ??? Anxiety Past Medical History: Diagnosis Date ??? Bladder spasms ??? Chronic pain 2019 ??? Gall stones ??? Hot flashes Past Surgical History: Procedure Laterality Date ??? BACK SURGERY 2017 OB History No obstetric history on file. No Known Allergies Med List Status: Nurse Complete Set By: Karolina Villalpando RN at 05/10/2021 2:09 PM Taking? Last Dose Start Date End Date Provider cloNIDine (CATAPRES) 0.3 mg tablet 05/09/2021 -- -- Esdras Fish MD cyclobenzaprine (FLEXERIL) 10 mg tablet Past Week 08/07/20 -- Bailey Stinson NP Take 1 tablet (10 mg total) by mouth 3 (three) times a day as needed for muscle spasms diazePAM (VALIUM) 5 mg tablet Past Week 02/28/17 -- Esdras Fish MD ergocalciferol (VITAMIN D) 50,000 unit capsule Past Week -- -- Esdras Fish MD fluticasone propionate (FLONASE) 50 mcg/actuation nasal spray () 09/30/20 04/17/21 Alyce Bae, DO Administer 2 sprays into each nostril daily gabapentin (NEURONTIN) 300 mg capsule 05/09/2021 09/03/20 -- Juan José Rehman MD Take 1 capsule (300 mg total) by mouth nightly loratadine 10 mg capsule 05/09/2021 -- -- Esdras Fish MD meloxicam (MOBIC) 15 mg tablet Past Month 09/03/20 09/03/21 Juan José Rehman MD Take 1 tablet (15 mg total) by mouth daily Do not take with other NSAIDs ondansetron ODT (ZOFRAN-ODT) 8 mg disintegrating tablet Past Month 03/26/21 -- Ash Cosme MD Take 1 tablet (8 mg total) by mouth every 8 (eight) hours as needed for nausea or vomiting oxybutynin (DITROPAN) 5 mg tablet 05/10/2021 04/16/21 -- ProviderEsdras MD tapentadol ER (NUCYNTA ER) 100 mg 12 hr tablet 05/09/2021 01/26/17 -- Esdras Fish MD traMADoL (ULTRAM) 50 mg tablet Past Week 12/24/19 -- Esdras Fish MD venlafaxine (EFFEXOR) 75 mg tablet 05/09/2021 -- -- ProviderEsdras MD Current Facility-Administered Medications: ??? cloNIDine (CATAPRES) tablet 0.3 mg, 0.3 mg, oral, Daily ??? cyclobenzaprine (FLEXERIL) tablet 10 mg, 10 mg, oral, TID PRN ??? diazePAM (VALIUM) tablet 5 mg, 5 mg, oral, Q8H PRN ??? docusate sodium (COLACE) capsule 100 mg, 100 mg, oral, BID PRN ??? enoxaparin (LOVENOX) syringe 40 mg, 40 mg, subcutaneous, Daily-2100, 40 mg at 05/10/212021 ??? fluticasone propionate (FLONASE) 50 mcg/actuation nasal spray 2 spray, 2 spray, each nostril, Daily ??? gabapentin (NEURONTIN) capsule 300 mg, 300 mg, oral, Nightly, 300 mg at 05/10/212021 ??? HYDROmorphone (DILAUDID) injection 0.5 mg, 0.5 mg, intravenous, Q3H PRN, 0.5 mg at 05/11/21 0541 ??? Lactated Ringer's (LR) infusion, 125 mL/hr, intravenous, Continuous, Last Rate: 125 mL/hr at 05/11/21 0600, 125 mL/hr at 05/11/21 0600 ??? loratadine (CLARITIN) tablet 10 mg, 10 mg, oral, Daily ??? meloxicam (MOBIC) tablet 15 mg, 15 mg, oral, Daily PRN ??? ondansetron ODT (ZOFRAN-ODT) disintegrating tablet 4 mg, 4 mg, oral, Q6H PRN OR ondansetron(ZOFRAN) injection 4 mg, 4 mg, intravenous, Q6H PRN, 4 mg at 05/10/21 1551 ??? oxybutynin (DITROPAN) tablet 5 mg, 5 mg, oral, BID, 5 mg at 05/10/212021 ??? piperacillin-tazobactam (ZOSYN) 3.375 g in sodium chloride 0.9% 50 mL IVPB, 3.375 g, intravenous, Q6H JOSE, Last Rate: 130 mL/hr at 05/11/21 0537, 3.375 g at 05/11/21 0537 ??? traMADoL (ULTRAM) tablet 50 mg, 50 mg, oral, Q6H PRN ??? venlafaxine (EFFEXOR) tablet 75 mg, 75 mg, oral, Nightly, 75 mg at 05/10/212021 Social History Tobacco Use Smoking Status Former [...] infarction - (Added by TW Conv) Vitals: 05/10/21 1610 05/10/21 2300 05/11/21 0719 BP: 124/72 113/64 126/67 Pulse: 65 60 54 Resp: 18 17 16 Temp: 36.2 ??C (97.2 ??F) 36.5 ??C (97.7 ??F) 36.5 ??C (97.7 ??F) SpO2: 94% 92% 92% PT: No results found for requested labs [...] findings of the anesthesia pre-evaluation assessment dated: 05/11/2021. Airway Exam: Mallampati: II Cervical ROM: FROM Cardiovascular Exam: Rate: regular Pulmonary Exam: LCTA, bilat Dental Exam: Upper dentures and lower dentures Current state: Patient's current state is cooperative. Additional comments: NPO > 8 hours. Denies any symptoms of reflux. Anesthesia Plan ASA 3 Planned anesthesia: General Induction: Induction: intravenous. Postoperative Plan: No plan for postoperative opioid use. Patient's planned disposition post procedure is Floor. Informed Consent: Discussed plan with attending. Anesthesia plan and risks discussed with patient. [...] Procedure Name Priority Date/Time Associated Diagnosis Comments WA AN ELECTIVE ENDOTRACHEAL AIRWAY Routine 05/11/2021 8:58 AM CDT documented in this encounter Results * WA AN ELECTIVE ENDOTRACHEAL AIRWAY (05/11/2021 8:58 AM CDT) Narrative Bryon Zapata CRNA - 05/11/2021 8:58 AM CDT Bryon Zapata CRNA ? 05/11/2021 ??9:11 AM Airway Patient location: OR Urgency: elective Date/time: 05/11/2021 8:58 AM Indications for airway management: anesthesia Difficult airway: no Staff: Supervising provider: Abisai Moss MD Placed by: TREER: Bryon Zapata CRNA Emergent airway documentation: Risks and benefits discussed: yes Consent obtained: yes Consent given by: patient Airway prep: Preoxygenated: yes Patient position: sniffing Mask difficulty assessment: 1 - vent by mask Spontaneous ventilation during airway: absent Sedation level during airway: GA Final airway details: Final airway type: endotracheal airway Tube type: ETT ETT size: 7.0 mm Cuffed: yes Technique used for successful ETT placement: video laryngoscopy Devices/Methods used in placement: intubating stylet Insertion site: oral Video blade type: Dockery Blade size: 3 Cormack-Lehane (video): grade I - full view of glottis Initial cuff pressure: 25 cm H2O Cuff inflated with: air ETT to gums: 20 cm Placement verified by: auscultation and CO2 detection Airway secured with: silk tape Number of attempts: 1 Additional comments: Smooth atraumatic intubation. us Abisai Moss MD ANESTHESIA ORDER ADRIANNA Final Result documented in this encounter Visit Diagnoses Not on filedocumented in this encounter Administered Medications Inactive Administered Medications - up to 3 most recent administrations Medication Order MAR Action Action Date Dose Rate Site dexAMETHasone (DECADRON) injection solution intravenous, Administer over 2 Minutes, As needed, Starting on Tue05/11/21 at 0855, Anesthesia Intra-op Given 05/11/2021 8:55 AM CDT 4 mg dexmedeTOMIDine (PRECEDEX) injection intravenous, As needed, Starting on Tue05/11/21 at 0901, Anesthesia Intra-op Given 05/11/2021 9:21 AM CDT 4 mcg Given 05/11/2021 9:19 AM CDT 4 mcg Given 05/11/2021 9:15 AM CDT 4 mcg glycopyrrolate (ROBINUL) injection intravenous, Administer over 1 Minutes, As needed, Starting on Tue05/11/21 at 0908, Anesthesia Intra-op Given 05/11/2021 10:03 AM CDT 0.4 mg Given 05/11/2021 9:08 AM CDT 0.2 mg ketamine (KETALAR) 50 mg/5 mL (10 mg/mL) in sodium chloride 0.9% (premix) intravenous, As needed, Starting on Tue05/11/21 at 0855, Anesthesia Intra-op Given 05/11/2021 9:09 AM CDT 20 mg Given 05/11/2021 8:55 AM CDT 30 mg Lactated Ringer's (LR) infusion 125 mL/hr, intravenous, Continuous, Starting on 05/10/21 at 1430 New Bag 05/11/2021 10:55 PM CDT 125 mL/hr 125 mL/hr Restarted 05/11/2021 10:06 AM CDT Rate/Dose Verify 05/11/2021 8:48 AM CDT 125 mL/ hr lidocaine (XYLOCAINE) 20 mg/mL (2 %) preservative free injection intravenous, As needed, Starting on Tue05/11/21 at 0855, Anesthesia Intra-op Given 05/11/2021 8:55 AM CDT 80 mg neostigmine (PROSTIGMIN) injection intravenous, Administer over 3 Minutes, As needed, Starting on Tue05/11/21 at 1003, Anesthesia Intra-op Given 05/11/2021 10:03 AM CDT 3 mg ondansetron (ZOFRAN) injection 4 mg 4 mg, intravenous, Administer over 2 Minutes, Every 6 hours PRN, nausea, vomiting, if not tolerating PO, Starting on 05/10/21 at 1357, Indications: Nausea and VomitingIndications:Nausea and Vomiting Given 05/12/2021 3:31 PM CDT 4 mg Given 05/11/2021 9:22 AM CDT 4 mg Given 05/10/2021 3:51 PM CDT 4 mg phenylephrine (ORTEGA-SYNEPHRINE) injection intravenous, As needed, Starting on Tue05/11/21 at 0904, Anesthesia Intra-op Given 05/11/2021 9:08 AM CDT 100 mcg Given 05/11/2021 9:04 AM CDT 100 mcg propofoL (DIPRIVAN) 10 mg/mL IV intravenous, As needed, Starting on Tue05/11/21 at 0855, Anesthesia Intra-op Given 05/11/2021 8:56 AM CDT 60 mg Given 05/11/2021 8:55 AM CDT 100 mg rocuronium (ZEMURON) injection intravenous, As needed, Starting on Tue05/11/21 at 0856, Anesthesia Intra-op Given 05/11/2021 8:56 AM CDT 30 mg documented in this encounter Care Teams Television Operator Relationship Specialty Start Date End Date Brandon Dumont MD PCP - General 03/26/21 documented as of this encounter
--- OUTSIDE RECORDS SUMMARY | 2024-10-27 10:57 | XMS_ITS | Encounter Summary ---
Author Organization [facility] Healthcare Address [address] [place] [address] Care Team Providers Care Clinical Trial Specialist Name Role Phone Unavailable Primary Care Provider Unavailabl e Encounter Details Date Type Department Care Team (Late st Contact Info) Description 04/13/2012 8:44 AM CDT - 04/13/2012 11:59 PM CDT Hospital Encounter [facility] Colin Timmons MD [address] [address] Symptom associated with female genital organs Social History Tobacco Use Types Packs/Day Years Used Date Smoking Tobacco: Never Assessed Comments Unknown Sex and Gender Information Value Date Recorded Sex Assigned at Not on file 

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
--- OUTSIDE RECORDS SUMMARY | 2024-10-27 10:57 | XMS_ITS | Encounter Summary ---
Author Organization [facility] Healthcare Address [address] [place] [address] Care Team Providers Care Specialty Transformer Assembler Name Role Phone Tre Rodriguez MD Primary Care Provider [phone] Encounter Details Date Type Department Care Team (Latest Contact Info) Description 02/02/2017 8:47 AM CDT - 02/02/2017 11:59 PM CDT Hospital Encounter [facility] OP INTERIM [phone] Chinyere Burrows MD [address] [facility] [place] [address] Discharge Disposition: Discharge to home or self care Social History Tobacco Use Types Packs/Day Years Used Date Smoking Tobacco: Every Day Comments Unknown Sex and Gender Information Value Date Recorded Sex Assigned at Not on file 

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
--- OUTSIDE RECORDS SUMMARY | 2024-10-27 10:57 | XMS_ITS | Encounter Summary ---
Author Organization [facility] Healthcare Address [address] [place] [address] Care Team Providers Care Special Education Tutor Name Role Phone Brandon Dumont MD Primary Care Provider [phone] Encounter Details Date Type Department Care Team (Late st Contact Info) Description 05/07/2021 2:55 PM CDT Lab [address] [phone] Colin Mittal MD [address] [address] Discharge Disposition: Discharge to home or self care Social History Tobacco Use Types Packs/Day Years Used Date Smoking Tobacco: Former Cigarettes Smokeless Tobacco: Never Comments:quit 2019 Alcohol Use Standard Drinks/Week Comments Not Currently 0 (1 standard drink = 0.6 oz pur e alcohol) Comments No Sex and Gender Information Value Date Recorded Sex Assigned at Not on file 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 Gender Identity Not on file Sexual Orientation Not on file documented as of this encounter Discharge Disposition Disposition Code Departure Means Destination Discharge to home or self care documented in this encounter Plan of Treatment Not on file documented as of this encounter Procedures Procedure Name Priority Date/Time Associated Diagnosis Comments VITAMIN D 25 HYDROXY Routine 05/07/2021 2:53 PM CDT documented in this encounter Results * Vitamin D 25 hydroxy (05/07/2021 2:53 PM CDT) Vitamin D 25-OH 35 30 - 80 ng/mL CERKRISTYN KENNEY ([place]) Blood specimen (specimen) 05/07/2021 2:53 PM CDT 05/07/2021 4:01 PM CDT us Colin Mittal MD LAB BLOOD ORDERABLES Final Result SHAQUILLE ANNE MARIE ([place]) [address] [facility] Department [place] [address] documented in this encounter Visit Diagnoses Not on filedocumented in this encounter Care Teams Special Education Tutor Relationship Specialty Start Date End Date Brandon Dumont MD PCP - General 03/26/21 documented as of this encounter
--- OUTSIDE RECORDS SUMMARY | 2024-10-27 10:57 | XMS_ITS | Encounter Summary ---
Author Organization [facility] Healthcare Address [address] [place] [address] Care Team Providers Care Photographic Plate Maker Name Role Phone Unavailable Primary Care Provider Unavailabl e Encounter Details Date Type Department Care Team (Late st Contact Info) Description 04/28/2007 12:20 PM CDT - 04/28/2007 11:59 PM CDT Hospital Encounter [facility] Emi Esparza MD [address] [place] [id number] Social History Tobacco Use Types Packs/Day Years Used Date Smoking Tobacco: Never Assessed Comments Unknown Sex and Gender Information Value Date Recorded Sex Assigned at Not on file Legal Sex Female 12:50 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
--- OUTSIDE RECORDS SUMMARY | 2024-10-27 10:57 | XMS_ITS | Encounter Summary ---
Author Organization [facility] Healthcare Address [address] [place] [address] Care Team Providers Care Donor Relations Manager Name Role Phone Unavailable Primary Care Provider Unavailabl e Encounter Details Date Type Department Care Team (Late st Contact Info) Description 03/19/2010 3:05 PM CDT - 03/19/2010 11:59 PM CDT Hospital Encounter [facility] Gretel Charles MD [address] [address] Other screening mammogram Social History Tobacco Use Types Packs/Day Years Used Date Smoking Tobacco: Never Assessed Comments Unknown Sex and Gender Information Value Date Recorded Sex Assigned at Not on file 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
--- OUTSIDE RECORDS SUMMARY | 2024-10-27 10:57 | XMS_ITS | Encounter Summary ---
Author Organization [facility] Address [address] [address] Care Team Providers Care Raymond Mill Operator Name Role Phone Hung Pereira NP Primary Care Provider [phone] Reason for Visit * Diagnostic Imaging (Routine) - Closed Specialty Diagnoses / Procedures Referred By Contac t Referred To Contact Diagnoses Neck pain Procedures XR Spine Cervical Complete 4 Or 5 View Juan José [place] [id number] [place] [id number] Phone: tel: fax: Referral ID Status Reason Start Date Expiration Date Visits Re quested Visits Authorized [id number] Closed 09/03/2020 10/03/2021 1 1 Encounter Details Date Type Department Care Team (Latest Contact Info) Description 09/03/2020 9:03 AM CDT - 09/03/2020 11:59 PM CDT Hospital Encounter [facility] [address] [address] Discharge Disposition: Discharge to home or self care Social History Tobacco Use Types Packs/Day Years Used Date Smoking Tobacco: Every Day Comments No Sex and Gender Information Value Date Recorded Sex Assigned at Not on file 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 ?? Demonstrates diffuse spondylosis throughout the cervical spine us Juan José Rehman MD IMG XR PROCEDURES Shwetha l Result documented in this encounter Visit Diagnoses Not on filedocumented in this encounter Care Teams Raymond Mill Operator Relationship Specialty Start Date End Date Hung Pereira NP [address] [facility] [address] [facility] [address] [place] [address] PCP - General 08/07/20 03/25/21 documented as of this encounter
--- OUTSIDE RECORDS SUMMARY | 2024-10-27 10:57 | XMS_ITS | Encounter Summary ---
Author Organization [facility] Healthcare Address [address] [place] [address] Care Team Providers Care Library Science Instructor Name Role Phone Hung Pereira COOK VEGETABLE Primary Care Provider [phone] Reason for Visit * Reason Comments PT Treatment Encounter Details Date Type Department Care Team (Late st Contact Info) Description 10/01/2020 7:45 AM MANAGER ATHLETICS Therapy [facility] Physical Therapy - [address] Rehabilitation [facility] [place] [address] Nae Dia, CHAR HOUSE SUPERVISOR Cervical spondylosis wthout myelopathy or radiculopathy (Primary Dx) Social History Tobacco Use Types Packs/Day Years Used Date Smoking Tobacco: Former Smokeless Tobacco: Never Comments:quit 2019 Alcohol Use Standard Drinks/Week Comments Not Currently 0 (1 standard drink = 0.6 oz pur e alcohol) Comments No Sex and Gender Information Value Date Recorded Sex Assigned at Not on file Legal Sex Female 12:50 AM MANAGER ATHLETICS Gender Identity Not on file Sexual Orientation Not on file documented as of this encounter Progress Notes * Nae Dia, CHAR HOUSE SUPERVISOR - 10/01/2020 7:45 AM CST PT Daily Treatment Note Joselyn Amado 1960 Subjective: Pt states she is hurting today. 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 Pain: 4.5/10 L neck/upper back Objective:see treatment below. Palpation: moderate tightness along L UT and cervical spine-pt very guarded with palpation and ROM today Treatment Provided: MHP supine to cervical x 10 minutes cervical AROM UT stretch cervical/upper thoracic stretch * shoulder rolls * Supine manual stretching to cervical spine Occipital release IASTM to L UT US to L UT x 8 minutes Pre-mod to the B UT, with MHP, to aid in decreased pain * Treatment will progress to include isometric cervical exercise kinesiotaping as needed UE strengthening. Assessment: Pt tolerates well for treatment. Pt very painful today. Guarded with all ROM. Plan: cont per POC Start Time: 749 End Time: 832 Nae Dia PTA GER ATHLETICS documented in this encounter Plan of Treatment Not on file documented as of this encounter Visit Diagnoses Diagnosis Cervical spondylosis wthout myelopathy or radiculopathy- Primary documented in this encounter Care Teams Library Science Instructor Relationship Specialty Start Date End Date Hung Pereira NP [address] [facility] [address] [facility] [address] [place] [address] PCP - General 08/07/20 03/25/21 documented as of this encounter
--- OUTSIDE RECORDS SUMMARY | 2024-10-27 10:57 | XMS_ITS | Encounter Summary ---
Author Organization [facility] Healthcare Address [address] [place] [address] Care Team Providers Care Reclamation Kettle Tender Name Role Phone Tre Rodriguez MD Primary Care Provider [phone] Encounter Details Date Type Department Care Team (Latest Contact Info) Description 01/17/2017 8:43 AM CDT - 01/17/2017 11:59 PM CDT Hospital Encounter [facility] OP INTERIM [phone] Chinyere Burrows MD [address] 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
--- OUTSIDE RECORDS SUMMARY | 2024-10-27 10:57 | XMS_ITS | Encounter Summary ---
Author Organization [facility] Healthcare Address [address] [place] [address] Care Team Providers Care Lithographic General Worker Name Role Phone Unavailable Primary Care Provider Unavailabl e Encounter Details Date Type Department Care Team (Late st Contact Info) Description 08/20/2008 7:23 PM CDT - 08/20/2008 8:25 PM CDT Hospital Encounter [facility] Dickson Winston MD [address] [place] [address] Lu Medina MD [address] [place] [address] Social History Tobacco Use Types Packs/Day Years Used Date Smoking Tobacco: Never Assessed Comments Unknown Sex and Gender Information Value Date Recorded Sex Assigned at Not on file Legal Sex Female 12:50 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
--- OUTSIDE RECORDS SUMMARY | 2024-10-27 10:57 | XMS_ITS | Encounter Summary ---
Author Organization [facility] Healthcare Address [address] [place] [address] Care Team Providers Care Transportation Museum Helper Name Role Phone Hung Pereira OIL WELL ENGINEER Primary Care Provider Reason for Visit * Reason Comments PT Treatment Encounter Details Date Type Department Care Team (Late st Contact Info) Description 10/06/2020 7:45 AM SOCIAL PROBLEMS SPECIALIST Therapy [facility] Physical Therapy [address] Rehabilitation [facility] [place] [address] Nae Dia, INSULATION BLOWER Cervical spondylosis wthout myelopathy or radiculopathy (Primary Dx) Social History Tobacco Use Types Packs/Day Years Used Date Smoking Tobacco: Former Smokeless Tobacco: Never Comments:quit 2019 Alcohol Use Standard Drinks/Week Comments Not Currently 0 (1 standard drink = 0.6 oz pur e alcohol) Comments No Sex and Gender Information Value Date Recorded Sex Assigned at Not on file Legal Sex Female 12:50 AM SOCIAL PROBLEMS SPECIALIST Gender Identity Not on file Sexual Orientation Not on file documented as of this encounter Progress Notes * Nae Dai, INSULATION BLOWER - 10/06/2020 7:45 AM CST PT Daily Treatment Note Joselyn Amado 1960 Subjective: Pt states she is feeling better today. Pain: 4/10 L neck/upper back Objective:see treatment below. Palpation: moderate tightness along L UT, decreased tightness in upper cervical paraspinals Treatment Provided: MHP supine to cervical x [...] strengthening. Assessment: Pt tolerates well for treatment. Plan: cont per POC Start Time: 0755 End Time: 035 Nae Dia PTA AL PROBLEMS SPECIALIST documented in this encounter Plan of Treatment Not on file documented as of this encounter Visit Diagnoses Diagnosis Cervical spondylosis wthout myelopathy or radiculopathy- Primary documented in this encounter Care Teams Transportation Museum Helper Relationship Specialty Start Date End Date Hung Pereira NP [address] [facility] [address] [place] [id number] PCP - General 08/07/20 03/25/21 documented as of this encounter
--- OUTSIDE RECORDS SUMMARY | 2024-10-27 10:57 | XMS_ITS | Encounter Summary ---
Author Organization [facility] Healthcare Address [address] [place] [address] Care Team Providers Care Government Professor Name Role Phone Tre Rodriguez MD Primary Care Provider [phone] Encounter Details Date Type Department Care Team (Latest Contact Info) Description 05/11/2017 8:58 AM CDT - 05/11/2017 11:59 PM CDT Hospital Encounter [facility] OP INTERIM [phone] Chinyere Burrows MD [address] 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
--- OUTSIDE RECORDS SUMMARY | 2024-10-27 10:57 | XMS_ITS | Encounter Summary ---
Author Organization [facility] Healthcare Address [address] [place] [address] Care Team Providers Care Custodial Aide Name Role Phone Tre Rodriguez MD Primary Care Provider [phone] Encounter Details Date Type Department Care Team (Latest Contact Info) Description 05/26/2017 8:21 AM CDT - 05/26/2017 11:59 PM CDT Hospital Encounter [facility] Kassie Garduno MD [id number] [place] [address] Discharge Disposition: Discharge to home or self care Social History Tobacco Use Types Packs/Day Years Used Date Smoking Tobacco: Every Day Comments Unknown Sex and Gender Information Value Date Recorded Sex Assigned at Not on file Legal Sex Female 12:50 AM 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
--- OUTSIDE RECORDS SUMMARY | 2024-10-27 10:57 | XMS_ITS | Encounter Summary ---
Author Organization [facility] Healthcare Address [address] [place] [address] Care Team Providers Care Medical Receptionist Medical Assistant Name Role Phone Hung Pereira CAT SITTER Primary Care Provider [phone] Reason for Visit * Reason Comments PT Treatment Encounter Details Date Type Department Care Team (Late st Contact Info) Description 10/29/2020 7:45 AM DISK RECORDIST Therapy [facility] Physical Therapy [address] Rehabilitation [facility] [place] [address] Joshua Cox, PT Cervical spondylosis wthout myelopathy [...] on file Legal Sex Female 12:50 AM DISK RECORDIST Gender Identity Not on file Sexual Orientation Not on file documented as of this encounter Progress Notes * Joshua Cox, PT - 10/29/2020 7:45 AM CST PT Daily Treatment Note Joselyn Amado 1960 Subjective: Ms. Amado reports that she experienced pulling, initially, during use of the neck hammock, but states that this decreased as the time increased. Presently the patient reports aching and burning primarily left UT. Pain: 5-6/10 Left cervical/thoracic Objective: See Treatment Below Treatment Provided: -Neck Hammock x 10 minutes Modalities: -US to L UT/cervical paraspinals x [...] tolerated the treatment with minimal change in complaints, but does appear [place] tolerating neck hammock with fewer difficulty. Slight decrease in muscle tightness during manualtherapy. Plan: Cont per POC Start Time: 0750 (Pt late for appt) End Time: 0830 Joshua Cox, PT RECORDIST documented in this encounter Plan of Treatment Not on file documented as of this encounter Visit Diagnoses Diagnosis Cervical spondylosis wthout myelopathy or radiculopathy- Primary Strain of neck muscle, initial encounter documented in this encounter Care Teams Medical Receptionist Medical Assistant Relationship Specialty Start Date End Date Hung Pereira NP [address] [facility] [address] [facility] [address] [place] [address] PCP - General 08/07/20 03/25/21 documented as of this encounter
--- OUTSIDE RECORDS SUMMARY | 2024-10-27 10:57 | XMS_ITS | Encounter Summary ---
Author Organization [facility] Healthcare Address [address] [place] [address] Care Team Providers Care Dining Car Conductor Name Role Phone Unavailable Primary Care Provider Unavailabl e Encounter Details Date Type Department Care Team (Late st Contact Info) Description 03/06/2008 1:01 PM CDT - 03/06/2008 11:59 PM CDT Hospital Encounter [facility] R[facility] MD [address] [place] [id number] Social History Tobacco Use Types Packs/Day Years Used Date Smoking Tobacco: Never Assessed Comments Unknown Sex and Gender Information Value Date Recorded Sex Assigned at Not on file Legal Sex Female 12:50 AM 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
--- OUTSIDE RECORDS SUMMARY | 2024-10-27 10:57 | XMS_ITS | Encounter Summary ---
Author Organization [facility] Healthcare Address [address] [place] [address] Care Team Providers Care Signal Maintainer Helper Name Role Phone Hung Pereira PRICING/SIGNAGE TEAM MEMBER Primary Care Provider [phone] Reason for Visit * Reason Comments PT Treatment Encounter Details Date Type Department Care Team (Late st Contact Info) Description 10/27/2020 8:30 AM FUEL CELL ASSEMBLER Therapy [facility] Physical Therapy [address] Rehabilitation & [place] [address] Nae Dia, BARREL RIBS SOLDERER Cervical spondylosis wthout myelopathy or radiculopathy (Primary Dx) Social History Tobacco Use Types Packs/Day Years Used Date Smoking Tobacco: Former Smokeless Tobacco: Never Comments:quit 2019 Alcohol Use Standard Drinks/Week Comments Not Currently 0 (1 standard drink = 0.6 oz pur e alcohol) Comments No Sex and Gender Information Value Date Recorded Sex Assigned at Not on file Legal Sex Female 12:50 AM FUEL CELL ASSEMBLER Gender Identity Not on file Sexual Orientation Not on file documented as of this encounter Progress Notes * Nae Dia, BARREL RIBS SOLDERER - 10/27/2020 8:30 AM CST PT Daily Treatment Note Joselyn Amado 1960 Subjective: Pt states her neck is still sore. States her upper back is still hurting also. Pain: 6/10 Left cervical/thoracic Objective: See Treatment Below Began neck hammock today for gentle stretching and traction to cervical spine Treatment Provided: Neck Hammock x 10 minutes Modalities: -US to L UT/cervical paraspinals x 8 minutes* -IFC, with MHP, to left UT/mid back Exercise: -Cervical AROM* -UT stretch* -Cervical/upper thoracic stretch* -Shoulder/cervical rolls -ext w/red band x 10 -retraction w/red band x 10 -B ER w/red band x 10 -B horizontal abd w/red band x 10 -UBE fwd/bkd 2min/2min Manual: did not perform today due to using the neck hammock -Supine manual stretching to cervical spine -Sub Occipital release -IASTM to L UT/cervical paraspinals/Rhomboids -Kinesiotape to left UT/thoracic paraspinals* *Not performed this date Assessment: Pt tolerates well for treatment. Added neck hammock and theraband exercises this date. Will monitor pain at next visit and if no increase in pain will issue for HEP. Plan: Cont per POC Pt has 1 more scheduled visit and instructed she can add 2 more visits. Start Time: 829 End Time: 914 Nae Dia PTA CELL ASSEMBLER documented in this encounter Plan of Treatment Not on file documented as of this encounter Visit Diagnoses Diagnosis Cervical spondylosis wthout myelopathy or radiculopathy- Primary documented in this encounter Care Teams Signal Maintainer Helper Relationship Specialty Start Date End Date Hung Pereira NP [address] [facility] [address] [address] PCP - General 08/07/20 03/25/21 documented as of this encounter
--- OUTSIDE RECORDS SUMMARY | 2024-10-27 10:57 | XMS_ITS | Encounter Summary ---
Author Organization [facility] Healthcare Address [address] [place] [address] Care Team Providers Care Computer Bookkeeper Name Role Phone Unavailable Primary Care Provider Unavailabl e Encounter Details Date Type Department Care Team (Late st Contact Info) Description 06/06/2007 9:06 AM CDT - 06/06/2007 3:15 PM CDT Hospital Encounter [facility] Peguero MD [address] [place] [address] Social History Tobacco Use Types Packs/Day Years Used Date Smoking Tobacco: Never Assessed Comments Unknown Sex and Gender Information Value Date Recorded Sex Assigned at Not on file 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
--- OUTSIDE RECORDS SUMMARY | 2024-10-27 10:57 | XMS_ITS | Encounter Summary ---
Author Organization [facility] Address [address] [place] [address] Care Team Providers Care Arbitrator Name Role Phone Brandon Dumont MD Primary Care Provider [phone] Reason for Visit * Reason Comments COVID-19 EVALUATION Pt was exposed to co nfirmed covid positive pt. Pt was last with covid positive individual 7 days ago. Pt reports that she is asymptomatic. Pt has no hx of covid virus, has not received covid vaccine. Encounter Details Date Type Department Care Team (Late st Contact Info) Description 04/17/2021 3:45 PM CDT Office Visit [facility] [address] [place] [address] Shelley Waggoner, ROHAN [address] [place] [address] Exposure to COVID-19 virus (Primary Dx) Social History Tobacco Use Types Packs/Day Years Used Date Smoking Tobacco: Former Cigarettes Smokeless Tobacco: Never Comments:quit 2019 Alcohol Use Standard Drinks/Week Comments Not Currently 0 (1 standard drink = 0.6 oz pur e alcohol) Comments No Sex and Gender Information Value Date Recorded Sex Assigned at Not on file 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 Gender Identity Not on file Sexual Orientation Not on file documented as of this encounter Last Filed Vital Signs Vital Sign Reading Time Taken Comments Blood Pressure 108/82 04/17/2021 3:47 PM CDT Pulse 86 04/17/2021 3:47 PM CDT Temperature 36.8 ??C (98.3 ??F) 04/17/2021 3:47 PM CD T Respiratory Rate 18 04/17/2021 3:47 PM CDT Oxygen Saturation 94% 04/17/2021 3:47 PM CDT Inhaled Oxygen Concentration - - Weight 63.1 kg (139 lb 3.2 oz) 04/17/2021 3:47 P M CDT Height 165.1 cm (5' 5 ) 04/17/2021 3:47 PM CDT Body Mass Index 23.16 04/17/2021 3:47 PM CDT documented in this encounter Patient Instructions * Patient Instructions* Shelley Waggoner, PLASTIC TILE LAYER - 04/17/2021 3:45 PM CDT Instructions following testing for COVID-19: Today you received test for SARS-COV2 (COVID-19). Please follow the instructions below regarding quarantine and return to work/daycare/school based on your results, symptoms and exposures. You will be notified in 24-48 hours of your COVID-19 swab results. If you are NEGATIVE, AND: 1. NO symptoms and NO known/possible exposure: NO need to isolate. 2. NO symptoms and YES known/possible exposure: quarantine for 14 days after last potential exposure. A negative test of a specific day cannot be used to release from quarantine since the patience could become positive during the 14- day period. Keep in mind these are CDC guidelines. If your employer has different polices and procedures, you may be required to follow those guidelines. 3. YES symptoms and NO known/possible exposure: quarantine until without fever for 24 hours AND symptoms improve. 4. YES symptoms and YES known/possible exposure: you must quarantine for 14 days from last known exposure date. A negative test of a specific day cannot be used to release from quarantine since the patient could become positive during the 14 day period. 5. YES symptoms and YES known/possible exposure and HAVE BEEN VACCINATED: you ONLY QUARANTINE untilyou are fever free AND symptoms improve. 6. NO symptoms and YES known/possible exposure and HAVE BEEN VACCINATED: NO RECOMMENDATION FOR QUARANTINE. If you are POSITIVE: You should isolate for 10 days from onset of symptoms, NOT FROM DATE OF POSITIVE TEST. You must be without fever for 24 hours AND symptoms improving AND released by the local health department. All household contacts must quarantine for 14 days from last potential exposure to positive patient. If household contacts cannot fully isolate, then quarantine for household contacts extends for 14 days beyond the 10 days from start of symptoms (may be up to 24 days of quarantine). ??? COVID-19 is a highly communicable disease (very contagious) that is spread through droplets viacough, sneeze, speech at close contact. ??? You will need to continue to wear a mask per CDC guidelines. ??? If at any time you feel significantly short of breath or chest pain/tightness, or change in mental status please go to the ER. documented in this encounter Progress Notes * Shelley Waggoner NP - 04/17/2021 3:45 PM CDT Images from the original note were not included. Subjective/Objective Patient: Joselyn Amado is a 60 y.o. female followed by Brandon Dumont MD COVID-19 ROS: Patient presents to clinic for assessment of Chief Complaint Patient presents with ??? COVID-19 EVALUATION Pt was exposed to confirmed covid positive pt. Pt was last with covid positive individual 7 days ago. Pt reports that she is asymptomatic. Pt has no hx of covid virus, has not received covid vaccine. . Reports NO SYMPTOMS Reports symptom duration of N/A Sick or suspected COVID-19 contacts: YES (FRIEND) Patient has following risks for COVID-19: NONE No history of prior COVID infection Vaccinated: NO -- Date: N/A Social History Tobacco Use Smoking Status Former Smoker ??? Years: 40.00 Smokeless Tobacco Never Used Tobacco Comment quit 2019 Vitals: 04/17/21 1547 BP: 108/82 BP Location: Left arm Patient Position: Sitting Pulse: 86 Resp: 18 Temp: 36.8 ??C (98.3 ??F) TempSrc: Oral SpO2: 94% Weight: 63.1 kg (139 lb 3.2 oz) Height: 165.1 cm (5' 5 ) Chief Complaint Patient presents with ??? COVID-19 EVALUATION Pt was exposed to confirmed covid positive pt. Pt was last with covid positive individual 7 days ago. Pt reports that she is asymptomatic. Pt has no hx of covid virus, has not received covid vaccine. Patient presents to clinic requesting COVID-19 swab after known/possible exposure. Exposure date 04/10/2021. Exposed by a close coworker. Denies COVID inoculation. Patient denies symptoms including fever, chills, n/v/d, excessive fatigue, loss of taste/smell, rhinorrhea, congestion, sinus pain/pressure, sore throat, cough. Endorses wanting to get COVID vaccine because illness scares her. Voicesinitially she was afraid of vaccine, but now disease is more daunting. Review of Systems Constitutional: Negative for chills and fever. HENT: Negative for congestion, ear pain, rhinorrhea, sinus pressure, sinus pain, sneezing and sore throat. Eyes: Negative. Respiratory: Negative for cough, chest tightness, shortness of breath and wheezing. Cardiovascular: Negative for chest pain. Gastrointestinal: Negative for constipation, diarrhea, nausea and vomiting. Endocrine: Negative. Genitourinary: Negative. Musculoskeletal: Negative for arthralgias and myalgias. Skin: Negative. Allergic/Immunologic: Negative for environmental allergies. Neurological: Negative for headaches. Hematological: Negative for adenopathy. Psychiatric/Behavioral: Negative. Physical Exam Vitals and nursing note reviewed. Constitutional: Appearance: Normal appearance. Comments: disheveled HENT: Head: Normocephalic and atraumatic. Right Ear: External ear normal. Left Ear: External ear normal. Nose: Nose normal. Mouth/Throat: Lips: Brushy. Mouth: Mucous membranes are moist. Cardiovascular: Rate and Rhythm: Normal rate and regular rhythm. Pulmonary: Effort: Pulmonary effort is normal. Breath sounds: Normal breath sounds. Abdominal: General: Abdomen is flat. Musculoskeletal: General: Normal range of motion. Cervical back: Neck supple. Skin: General: Skin is warm and dry. Neurological: General: No focal deficit present. Mental Status: She is alert and oriented to person, place, and time. Psychiatric: Mood and Affect: Mood normal. Behavior: Behavior normal. Behavior is cooperative. Assessment/Plan Diagnoses and all orders for this visit: Exposure to COVID-19 virus (Primary) - COVID-19 POC Orders Placed This Encounter Procedures ??? COVID-19 POC Order Specific Question: Is the Patient experiencing symptoms consistent with COVID? Answer: No Order Specific Question: Is the patient hospitalized? Answer: No Order Specific Question: Is the patient admitted to an ICU? Answer: No Order Specific Question: Is this the first COVID-19 test for this patient? 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 Answer: No Order Specific Question: Is the patient ? Answer: No # known exposure to COVID-19 # not vaccinated against COVID-19 --14 day quarantine from date of last known exposure --OTC symptomatic treatment --discussed various types of COVID-19 testing --discussed vaccine options --ED presentation w/ one or more of the following symptoms: fever uncontrolled with antipyretics, shortness of breath, chest discomfort, uncontrolled n/v/d --f/u with PCP post-quarantine if symptoms continue/worsen and to discussed vaccine options Patient Instructions: Instructions following testing for COVID-19: Today you received test for SARS-COV2 (COVID-19). Please follow the instructions below regarding quarantine and return to work/daycare/school based on your results, symptoms and exposures. You will be notified in 24-48 hours of your COVID-19 swab results. If you are NEGATIVE, AND: 1. NO symptoms and NO known/possible exposure: NO need to isolate. 2. NO symptoms and YES known/possible exposure: quarantine for 14 days after last potential exposure. A negative test of a specific day cannot be used to release from quarantine since the patience could become positive during the 14- day period. Keep in mind these are CDC guidelines. If your employer has different polices and procedures, you may be required to follow those guidelines. 3. YES symptoms and NO known/possible exposure: quarantine until without fever for 24 hours AND symptoms improve. 4. YES symptoms and YES known/possible exposure: you must quarantine for 14 days from last known exposure date. A negative test of a specific day cannot be used to release from quarantine since the patient could become positive during the 14 day period. 5. YES symptoms and YES known/possible exposure and HAVE BEEN VACCINATED: you ONLY QUARANTINE untilyou are fever free AND symptoms improve. 6. NO symptoms and YES known/possible exposure and HAVE BEEN VACCINATED: NO RECOMMENDATION FOR QUARANTINE. If you are POSITIVE: You should isolate for 10 days from onset of symptoms, NOT FROM DATE OF POSITIVE TEST. You must be without fever for 24 hours AND symptoms improving AND released by the local health department. All household contacts must quarantine for 14 days from last potential exposure to positive patient. If household contacts cannot fully isolate, then quarantine for household contacts extends for 14 days beyond the 10 days from start of symptoms (may be up to 24 days of quarantine). ??? COVID-19 is a highly communicable disease (very contagious) that is spread through droplets viacough, sneeze, speech at close contact. ??? You will need to continue to wear a mask per CDC guidelines. ??? If at any time you feel significantly short of breath or chest pain/tightness, or change in mental status please go to the ER. Brief: Treatment plan including expectations, follow up, and return precautions discussed with patient/parent, verbalizes understanding. Medication dosage, use, and potential adverse reactions discussed with patient/parent. Advised to follow up with PCP if symptoms do not resolve as expected or sooner if condition worsens. Signs/symptoms warranting ER evaluation reviewed. Patient and/or guardian was given an opportunity to ask questions, questions answered. ??? Patient was wearing the following PPE: mask. ??? MA wearing the following PPE: mask, gown, gloves, face shield. ??? Provider wearing the following PPE: mask, gown, gloves, face shield. Shelley Waggoner NP documented in this encounter Plan of Treatment Not on file documented as of this encounter Procedures Procedure Name Priority Date/Time Associated Diagnosis Comments COVID-19 POC Routine 04/17/2021 4:10 PM CDT Exposure to COVID-19 virus documented in this encounter Results * COVID-19 POC (04/17/2021 4:10 PM CDT) COVID-19 Ag POC (CareStart or Binax) Presumptive Negative Presumptive Negative, Invalid [facility] [place] Nasal 04/17/2021 4:10 PM CDT us Shelley Waggoner PLASTIC TILE LAYER POINT OF CARE TEST ORDERABL ES Final Result [facility] [place] [address] [place] [address] documented in this encounter Visit Diagnoses Diagnosis Exposure to COVID-19 virus- Primary documented in this encounter Historical Medications * This list may reflect changes made after this encounter. Medication Sig Dispense Quantity Refills Last Filled Start D ate End Date oxybutynin (DITROPAN) 5 mg tablet 04/16/2021 added in this encounter Care Teams Arbitrator Relationship Specialty Start Date End Date Brandon Dumont MD PCP - General 03/26/21 documented as of this encounter
--- OUTSIDE RECORDS SUMMARY | 2024-10-27 10:57 | XMS_ITS | Encounter Summary ---
Author Organization [facility] Address [address] [place] [address] Care Team Providers Care Circus Agent Name Role Phone Unavailable Primary Care Provider Unavailabl e Encounter Details Date Type Department Care Team (Late st Contact Info) Description 05/31/2007 7:23 AM CDT - 05/31/2007 11:59 PM CDT Hospital [facility] [address] [place] [address] [place] [address] Social History Tobacco Use Types Packs/Day Years Used Date Smoking Tobacco: Never Assessed Comments Unknown Sex and Gender Information Value Date Recorded Sex Assigned at Not on file 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
--- OUTSIDE RECORDS SUMMARY | 2024-10-27 11:02 | XMS_ITS ---
Author Organization 1 [address] malin DPM [facility] Address [address] [address] [place] [address] Care Team Providers Care Molder Setter Name Role Phone Saloni Stepan Aguirre [phone] REASON FOR VISIT Research (MAC Bio) Bunion Screen Encounters Encounter Location Date Provider Diagnosis 3 [facility] Jose Raul Lam DPM [address] [place] [address] 07/06/2023 Stepan Guallpa Acquired hallux valgus, unspecified laterality M20.10 Assessments Encounter Date Diagnosis (ICD Code) Assessment Notes Treatment Notes Treatment Clinical Notes Section Notes 07/06/2023 Acquired hallux valgus, unspecified laterality (ICD-10 - M20.10) Plan Of Treatment No Information Progress Notes * Joselyn ESPARZADOB: [birth year] (62 yo F)Acc No.[id number]:07/06/2023 Patient:?Joselyn ESPARZA Provider:?Stepan Guallpa DPM :1960???Age:62 Y???Sex:Female D ate:07/06/2023 Address:[address] [place] [id number] * Images: * GER STUDIO Sign off status: Completed true * Provider:?Stepan Guallpa DPM Date:?06/09 Generated for Rafaela issa/Ba/eTransmitting on:?10/27/2024 11:02 AM MANAGER STUDIO
--- OUTSIDE RECORDS SUMMARY | 2024-10-27 11:03 | XMS_ITS | Encounter Summary ---
Author Organization [facility] Address [address] [place] [address] Care Team Providers Care Devops Engineer Name Role Phone Tre Rodriguez MD Primary Care Provider [phone] Encounter Details Date Type Department Care Team (Late st Contact Info) Description 12/07/2023 External Device Data [facility] ABSTRACTION Provider, Abstract NO ADDRESS ON FILE Social History Tobacco Use Types Packs/Day Years Used Date Smoking Tobacco: Every Day Cigarettes 1 35 Smokeless Tobacco: Never Alcohol Use Standard Drinks/Week Comments Yes 0 (1 standard drink = 0.6 oz pur e alcohol) rare Sex and Gender Information Value Date Recorded Sex Assigned at Not on file Gender Identity Not on file Sexual Orientation Not on file documented as of this encounter Plan of Treatment Not on file documented as of this encounter Visit Diagnoses Not on filedocumented in this encounter Care Teams Devops Engineer Relationship Specialty Start Date End Date Tre Rodriguez MD PCP - General Family Practice 11/22/16 documented as of this encounter
--- OUTSIDE RECORDS SUMMARY | 2024-10-27 11:03 | XMS_ITS | Encounter Summary ---
Author Organization [facility] Address [address] [place] [address] Care Team Providers Care Shoe Stamper Name Role Phone Tre Rodriguez MD Primary Care Provider [phone] Encounter Details Date Type Department Care Team (Late st Contact Info) Description 08/07/2024 External Device Data STL ABSTRACTION Provider, Abstract [...] on filedocumented in this encounter Care Teams Shoe Stamper Relationship Specialty Start Date End Date Tre Rodriguez MD PCP - General Family Practice 11/22/16 documented as of this encounter
--- OUTSIDE RECORDS SUMMARY | 2024-10-27 11:03 | XMS_ITS | Encounter Summary ---
Author Organization [facility] Address [address] [place] [address] Care Team Providers Care Clerical Adviser Name Role Phone Tre Rodriguez MD Primary Care Provider [phone] Encounter Details Date Type Department Care Team (Late st Contact Info) Description 03/27/2024 External Device Data ST[facility] ABSTRACTION Provider, Abstract [...] on filedocumented in this encounter Care Teams Clerical Adviser Relationship Specialty Start Date End Date Tre Rodriguez MD PCP - General Family Practice 11/22/16 documented as of this encounter
--- OUTSIDE RECORDS SUMMARY | 2024-10-27 11:03 | XMS_ITS | Encounter Summary ---
Author Organization [facility] Address [address] [place] [address] Care Team Providers Care Dispatch Manager Name Role Phone Tre Rodriguez MD Primary Care Provider [phone] Encounter Details Date Type Department Care Team (Late st Contact Info) Description 05/22/2024 External Device Data STL ABSTRACTION Provider, Abstract [...] on filedocumented in this encounter Care Teams Dispatch Manager Relationship Specialty Start Date End Date Tre Rodriguez MD PCP - General Family Practice 11/22/16 documented as of this encounter
--- OUTSIDE RECORDS SUMMARY | 2024-10-27 11:03 | XMS_ITS | Encounter Summary ---
Author Organization [facility] Address [address] [place] [address] Care Team Providers Care Unit Educator Name Role Phone Tre Rodriguez MD Primary Care Provider [phone] Reason for Visit * Auth/Cert Specialty Diagnoses / Procedures Referred By Naye t Referred To Contact Radiology [facility] [address] [address] [place] [address] Referral ID Status Reason Start Date Expiration Date Visits Re quested Visits Authorized [id number] 1 1 Encounter Details Date Type Department Care Team (Latest Contact Info) Description 11/22/2016 4:11 PM RESOURCE SPECIALIST - 11/22/2016 11:59 PM RESOURCE SPECIALIST Hospital Encounter [facility] [address] [address] [place] [address] [place] [id number] [address] Discharge Disposition: Home or Self Care Social History Tobacco Use Types Packs/Day Years Used Date Smoking Tobacco: Never Assessed Sex and Gender Information Value Date Recorded Sex Assigned at Not on file Gender Identity Not on file Sexual Orientation Not on file documented as of this encounter Plan of Treatment Not on file documented as of this encounter Procedures Procedure Name Priority Date/Time Associated Diagnosis Comments XR HIP 2 OR 3 VIEWS RT Routine 11/22/2016 4:32 PM RESOURCE SPECIALIST Low back pain with right-sided sciatica documented in this encounter Results * XR HIP 2 OR 3 VIEWS RT (11/22/2016 4:32 PM RESOURCE SPECIALIST) Anatomical Region Laterality Modality Lower Extremity Right Computed Radiogr aphy 11/22/2016 4:33 PM RESOURCE SPECIALIST Impressions 11/22/2016 4:42 PM RESOURCE SPECIALIST IMPRESSION: Normal. DICTATION LOCATION: Location [address] [place] [address] Narrative 11/22/2016 4:42 PM RESOURCE SPECIALIST EXAM: XR HIP 2 OR 3 VIEWS RT DATE: 11/22/2016 4:32 PM HISTORY: Low back pain with right-sided sciatica. ?. COMPARISON: None NUMBER OF VIEWS: 3 FINDINGS ??Bones: Normal anatomic alignment. No fracture or dislocation. No lytic or blastic lesions. ??Mineralization: Normal. ??Joints: Normal. No arthritis. ??Adjacent Soft Tissue: Normal. ??Other findings: None. Procedure Note Placido Christopher MD - 11/22/2016 EXAM: XR HIP 2 OR 3 VIEWS RT DATE: 11/22/2016 4:32 PM HISTORY: Low back pain with right-sided sciatica. . COMPARISON: None NUMBER OF VIEWS: 3 FINDINGS Bones: Normal anatomic alignment. No fracture or dislocation. No lytic or blastic lesions. Mineralization: Normal. Joints: Normal. No arthritis. Adjacent Soft Tissue: Normal. Other findings: None. IMPRESSION IMPRESSION: Normal. DICTATION LOCATION: Location [address] [place] [address] Tre Rodriguez MD DIAGNOSTIC IMAGING O RDERABLES documented in this encounter Visit Diagnoses Diagnosis Low back pain with right-sided sciatica documented in this encounter Care Teams Unit Educator Relationship Specialty Start Date End Date Tre Rodriguez MD PCP - General Family Practice 11/22/16 documented as of this encounter
--- OUTSIDE RECORDS SUMMARY | 2024-10-27 11:03 | XMS_ITS | Encounter Summary ---
Author Organization [facility] Address [address] [place] [address] Care Team Providers Care Coke Crusher Operator Name Role Phone Tre Rodriguez MD Primary Care Provider [phone] Reason for Visit * Reason Comments Medication Refill Encounter Details Date Type Department Care Team (Late st Contact Info) Description 02/21/2017 Refill [facility] Physical Medicine and Rehabilitation [facility] [address] [facility] [address] [place] [address] Meenu Rios MD NO ADDRESS ON FILE Social History Tobacco Use Types Packs/Day Years Used Date Smoking Tobacco: Never Smokeless Tobacco: Never Alcohol Use Standard Drinks/Week Comments No 0 (1 standard drink = 0.6 oz pur e alcohol) Sex and Gender Information Value Date Recorded Sex Assigned at Not on file Gender Identity Not on file Sexual Orientation Not on file documented as of this encounter Miscellaneous Notes * Telephone Encounter - Meenu Rios MD - 02/21/2017 1:04 PM CDT She has surgery on 02/28/17. If she is out can give her #10 until then documented in this encounter Plan of Treatment Not on file documented as of this encounter Visit Diagnoses Not on filedocumented in this encounter Care Teams Coke Crusher Operator Relationship Specialty Start Date End Date Tre Rodriguez MD PCP - General Family Practice 11/22/16 documented as of this encounter
--- OUTSIDE RECORDS SUMMARY | 2024-10-27 11:03 | XMS_ITS | Clinical Summary ---
Author Organization [facility] Address [address] [place] [address] Care Team Providers Care Meat Counter Clerk Name Role Phone Unavailable Primary Care Provider Unavailabl e Source Comments [facility],non-owned Affiliates and Associated Physician Practices is amultiple site organization consisting of ambulatory clinics and hospital sitesin [place] and [place]. This disclosure is being madepursuant to the Care Everywhere program and may not contain all information available regarding this patient. Last updated 18.[facility] Allergies No known active allergies Medications * Be aware that medications may not be up to date on this document. Alwaysverify current medications with the patient. Medication Sig Dispensed Refills Start Date End Date Status acetaminophen (Tylenol) 325 MG tablet Take 2 (two) tablets by mouth every 6 hours as needed Maximum allowable Acetaminophen amount = 4 Grams (4000 mg) / 24 hours. 05/20/2024 Active Active Problems Problem Noted Date Diagnosed Date Syncope and collapse 05/19/2024 NSTEMI (non-ST elevated myocardial infarction) 0 05/19/2024 Primary hypertension 05/19/2024 Family History Medical History Relation Name Comments CAD (Coronary Artery Disease) Father Diabetes - Type 2 Mother Relation Name Status Comments Father Mother Social History Tobacco Use Types Packs/Day Years Used Date Smoking Tobacco: Former Cigarettes Tobacco Cessation:Counseling Given: Not Answered Overall Financial Resource Strain (CARDIA) Answe r Date Recorded How hard is it for you to pa y for the very basics like food, housing, medical care, and heating? Not hard at all 05/19/2024 Sex and Gender Information Value Date Recorded Sex Assigned at Not on file Gender Identity Not on file Sexual Orientation Not on file Last Filed Vital Signs Vital Sign Reading Time Taken Comments Blood Pressure 127/84 05/20/2024 12:32 PM CDT Pulse 76 05/20/2024 12:32 PM CDT Temperature 35.9 ??C (96.6 ??F) 05/20/2024 12:32 PM C DT Respiratory Rate 22 05/20/2024 12:32 PM CDT Oxygen Saturation 98% 05/20/2024 12:32 PM CDT Inhaled Oxygen Concentration - - Weight - - Height - - Body Mass Index - - Plan of Treatment Upcoming Encounters Date Type Department Care Team (Late st Contact Info) Description 11/28/2024 10:00 AM REMOTE BROADCAST ENGINEER Office Visit [facility] - Neurology [address] [place] [address] Nickolas Barboza MD [address] [place], [place] [id number] Health Maintenance Due Date Last Done Comments COLOGUARD (AGES 45-75) - COL ON CA SCREENING 1962 COLON MONITORING 1962 COLONOSCOPY - COLON CA SCREENING 1962 CT COLONOGRAPHY - COLON CA SCREENING 1962 Colorectal Cancer Screening 1962 FIT - COLON CA SCREENING 1962 FLEX SIG - COLON CA SCREENING 1962 PAP SMEAR 1962 HIV SCREENING 1977 HEPATITIS C SCREENING 10/17/1980 DTAP/TDAP/TD VACCINES (1 - Tdap) 1981 ZOSTER VACCINE (1 of 2) 2012 DEPRESSION SCREENING 11/07/2023 COVID-19 VACCINE (2 - 2023-2 5 season) 2024 06/13/2021 INFLUENZA VACCINE (#1) 2024 MAMMOGRAM 09/13/2025 09/13/2023 LIPID TESTING 05/20/2029 05/20/2024 Respiratory Syncytial Virus (RSV) Vaccine Pt: or over 60 yrs (1 - 1-dose 75+ series) 2037 HEPATITIS B VACCINE Aged Out No longe r eligible based on patient's age to complete this topic HIB VACCINE Aged Out No longer eligi ble based on patient's age to complete this topic HPV VACCINE Aged Out No longer eligi ble based on patient's age to complete this topic MENINGOCOCCAL VACCINE Aged Out No dolly dana eligible based on patient's age to complete this topic PNEUMOCOCCAL VACCINE Aged Out No long er eligible based on patient's age to complete this topic Procedures Procedure Name Priority Date/Time Associated Diagnosis Comments LIPID PROFILE AM Draw 05/20/2024 3:56 AM CDT Syncope and collapse from Last 3 Months or Most Recently Relevant to Health Maintenance Results * (ABNORMAL) LIPID PROFILE (05/20/2024 3:56 AM CDT) Appearance Serum Clear Clear 05/20/20 5:13 AM CDT [facility] Cholesterol 220(H) <200 mg/dL 05/20/2024 5:13 AM CDT [facility] Triglycerides 93 <=150 mg/dL 05/20/2024 5:13 AM CDT [facility] Comment:N-acetylcysteine adm inistration may falsely depress Triglyceride results and also affect calculations derived from those parameters. HDL Cholesterol 66 >=40 mg/dL 05/20/2024 5:13 AM CDT [facility] Comment: N-acetylcysteine administration may falsely depress HDL results and also affect calculations derived from those parameters. HDL % 30.0 % 05/20/2024 5:13 AM CDT [facility] Chol HDL Ratio 3.3 05/20/2024 5:13 AM CDT [facility] LDL/HDL Ratio 2.1 05/20/2024 5:13 AM CDT [facility] VLDL Calculated 19 12 - 38 mg/dL 05/20/2024 5:13 AM CDT [facility] LDL Calculated 135(H) 95 - 130 mg/dL 05/20/2024 5:13 AM CDT [facility] Blood BLOOD SPECIMEN / Unknown Lab Venipuncture / Unknown 05/20/2024 3:56 AM CDT 05/20/2024 4:41 AM CDT Yo Cortes MD LAB - CHEMISTR Y ORDERABLES [facility] [address] [place] [address], [facility] [place] from Last 3 Months or Most Recently Relevant to Health Maintenance Advance Directives * Full Code (Latest Code Status on File) Date Activated Date Inactivated Comments 05/19/2024 6:15 AM 05/20/2024 2:40 PM
--- OUTSIDE RECORDS SUMMARY | 2024-10-27 11:03 | XMS_ITS | Encounter Summary ---
Author Organization [facility] Address [address] [place] [address] Care Team Providers Care It Portfolio Manager Name Role Phone Tre Rodriguez MD Primary Care Provider [phone] Reason for Visit * Auth/Cert Specialty Diagnoses / Procedures Referred By Naye t Referred To Contact General Surgery Diagnoses LUMBOSACRAL HNP Procedures HEMILAMINECTOMY MINIMALLY INVASIVE [facility] Or [address] [place] [address] Referral ID Status Reason Start Date Expiration Date Visits Re quested Visits Authorized [id number] 1 1 Encounter Details Date Type Department Care Team (Late st Contact Info) Description 02/28/2017 2:34 PM CDT Anesthesia Event [facility] Operating Room [address] [place] [address] Jesús Dozier MD [address] [place] [address] Jason Chin AA-C [address] [place] [address] Anesthesia Record Procedure Summary Procedure Name Responsible Anesthesiologist Anesthesia Start Time Anesthesia Stop Time HEMILAMINECTOMY MINIMALLY INVASIVE, RT. L5-S1 FAR LATERAL & MICRODISKECTOMY (Spine Lumbar) Jesús Dozier MD 02/28/17 1434 02/28/17 1721 Events Date Time Event Comment 02/28/2017 1234 1410 AN Equip Check Anesthesia eq uipment and materials checked in accordance with local policy. 1434 AN Equip Check Anesthesia eq uipment and materials checked in accordance with local policy. 1434 An Start 1434 An Start Data 1436 Pre-Induction Immediate pre- induction anesthetic assessment performed. Vital signs as noted on graphic. 1438 An Induction 1442 An Intubation 1445 Anesthesia Ready 1447 Quick Note Patient turned from supine position to prone position. ??Neck and head neutral throughout. ??Arms <90 on armboards, with foam padding at bilateral arms. ??Ulnar nerve checked and free of pressure. Via prone view, eyes, nose and ears free of pressure and checked. All accessible pressure points, eyes and face checked q 15 minutes as noted in the anesthesia record. 1504 Handoff - Intraop Anesthesio logy transfer of care elements completed in accordance with procedure. jtf 1712 An Extubation Emergence unev entful Awake, spontaneous respirations. Adequate muscle strength demonstrated Adequate tidal volume. Orapharynx suctioned. Extubated with positive pressure ventilation. 1714 an stop data 1721 An Stop 1721 Hand-off to Receiving Clinic michael Post-Anesthetic transfer of care report elements to appropriate post-anesthesia recovery environment completed in accordance with procedure. 03/01/2017 0814 Follow-up Complete Meds Name Total midazolam PF (VERSED) 1 mg/mL injection 2 mg fentaNYL (SUBLIMAZE) PF 50??mcg/mL injec tion 100 mcg lidocaine (XYLOCAINE) 2% injection 60 mg propofol (DIPRIVAN) 10??mg/mL injection 100 mg rocuronium (ZEMURON) 10 mg/mL 5 mL injec tion 35 mg dexamethasone (DECADRON) 4 mg/mL injecti on 6 mg ondansetron (ZOFRAN) 4??mg/2 mL injectio n 4 mg glycopyrrolate (ROBINUL) 0.4 mg/2 mL (0. 2 mg/mL) syringe 0.2 mg neostigmine (PROSTIGMINE) 4 mg/4 mL (1 m g/mL) injection 2 mg ceFAZolin (ANCEF) IVPB 2,000 mg 2,000 mg ketamine (KETALAR) 100??mg/mL injection 20 mg famotidine PF (PEPCID) 20mg/2 mL injecti on 20 mg phenylephrine in NS (PF) 0.5 mg/5 mL syr brandie 700 mcg ePHEDrine 50 mg/mL injection 25 mg morphine 10 mg/mL injection (vial) 5 mg lactated ringers solution 1,500 mL * Agents Name Sevoflurane % Desflurane % Sevoflurane Desflurane O2 Inspired O2 N2O Inspired N2O * Blood No blood administrations on file. Lines, Drains, and Airways Type Details Placement Removal Peripheral IV Pre-Hospital Start: No; Orientation: Left; Location: Arm; Device: Angiocath; Gauge: 20 gauge; Needle Length: 1.25 in length; Insertion Attempts: 1; Patient Tolerance: tolerated well; Pain Prevention: intradermal injection; Removal Indication: no longer indicated; Removal Interventions: direct pressure, catheter intact 02/28/17 1253 by Radha Chavez RN 03/01/17 0920 by Penny Younger RN Endotracheal Airway Type: ETT (easy mask ); Cuff Pressure: minimal leak technique, minimal occluding volume, cuff inflated; Size: 7; Site: mouth; Attempts: 1; FOV: I; cm: 20; Device: Curved Blade, Stylet; Blade: 3; Secured: secured with tape; Verification: Auscultated bilateral breath sounds, Equal chest movement, Continuous waveform capnography 02/28/17 1442 by Jason Chin AA-C 02/28/17 1712 by Favian Lanier AA-C Adult Incision 02/28/17; 1709; surgical incision; Bilateral; back; 03/01/17; 2131 02/28/17 1709 by Chelo Vallejo RN 03/01/172130 by PROVIDER, DISCHARGE PATIENT documented in this encounter Social History Tobacco [...] of this encounter OR Notes * Anesthesia Post-Op Follow-up Note - Leni Teran PA - 03/01/2017 8:14 AM CDT 03/01/2017 8:14 AM Joselyn Amado No apparent Anesthesia related complications VENESSA Mcfarlane * Anesthesia Postprocedure Evaluation - Geovani Pedersen DO - 02/28/2017 6:00 PM CDT Post Anesthesia Evaluation Phase I Postanesthesia Evaluation Including Modified Edinson Score Patient seen and evaluated: COMMENTS: No apparent Anesthesia related complications RESPIRATORY FUNCTION: Respiration: able to breath and cough freely (02/28/171735) [2=able to breathe and cough freely, 1=dyspnea, limited breathing or tachypnea, 0=apnea or mechanicventilator] O2 Saturation: able to maintain O2 saturation greater than 92% on room air (02/28/171735) [2=able to maintain O2 saturation greater than 92% on room air, 1=needs O2 inhalation to maintain O2 saturation greater than 90%, 0=O2 saturation less than 90% even with O2 supplement] Resp: 10 (02/28/171799)SpO2: 95 % (02/28/171799) CARDIOVASCULAR FUNCTION: Heart Rate: 65 bpm (02/28/171799) BP: (!) 96/44 (02/28/171799) Circulation: BP within 20% of preanesthetic level (02/28/171735) [2=BP within 20% of preanesthetic level, 1=BP within 20-49% of preanesthetic level, 0=BP within 50%of preanesthetic level] MENTAL STATUS, NEURO, ACTIVITY: Consciousness: arousable on calling (02/28/171735) [2=fully awake, 1=arousable on calling, 0=not responding] Activity: able to move 4 extremities voluntarily or on command (02/28/171735) [2=able to move 4 extremities voluntarily or on command, 1=able to move 2 extremities voluntarily or on command, 0=unable to move extremities voluntarily or on command] TEMPERATURE: Temp: 37.7 ??C (02/28/171718) PAIN: Pain Rating: Rest: 5 (02/28/171757) Presence of Pain: denies pain/discomfort (02/28/171718) NAUSEA AND VOMITING: POSTOPERATIVE HYDRATION: Intake/Output Summary (Last 24 hours) at 02/28/17 1800 Last data filed at 02/28/17 1704 Gross per 24 hour Intake 1500 ml Output 20 ml Net 1480 ml Modified Edinson Score: Score: 9 (02/28/17 1736) Geovani Pedersen DO 02/28/2017 6:00 PM Vitals: BP (!) 86/47 Pulse 86 Temp 37.7 ??C (Temporal) Resp 10 Wt 62.7 kg (138 lb 3.2 oz) LMP 02/22/2013 SpO2 93% BMI 23 kg/m2 Pain Rating: Pain Rating: Rest: 5 (02/28/17 0082) Nausea/Vomiting: no nausea and no vomiting Post-Op hydration: well hydrated Respiratory function: no respiratory symptoms Airway patency: normal Cardiovascular function: Normal - Regular rate and rhythm Mental status, LOC: 0=alert; keenly responsive Patient participated in evaluation: yes Unanticipated Events: no Geovani Pedersen DO * Anesthesia Handoff - Favian Fragoso AA-C - 02/28/2017 5:20 PM CDT Post-Anesthetic transfer of care report elements to appropriate post-anesthesia recovery environment completed in accordance with procedure. I completed my handoff to the receiving nurse during which we: 1. Identified the patient 2. Identified the responsible provider 3. Reviewed the pertinent medical history 4. Discussed the surgical course 5. Reviewed intra-op anesthesia management and issues during anesthesia 6. Set expectations for post-procedure period 7. Allowed opportunity for questions and acknowledgement of understanding. Vital Signs: BP 112/62 HR 88 RR 18 SPO2 97% TEMP 99.9 5:20 PM AMMY Spear * Anesthesia Preprocedure Evaluation - Hawa Monet MD - 02/28/2017 12:33 PM CDT Anesthesia Evaluation Patient summary reviewed and Nursing notes reviewed Airway Mallampati: II TM distance: >3 FB Neck ROM: full Dental (+) upper dentures and lower dentures Pulmonary - normal exam ROS comment: 35 pack years Cardiovascular - negative ROS and normal exam Neuro/Psych (+) TIA (2002, normal carotid study 2013), psychiatric history GI/Hepatic/Renal - negative ROS Endo/Other - negative ROS Abdominal - normal exam Anesthesia History No history of anesthetic complications. Anesthesia Plan ASA 2 General Intravenous induction Oral ETT airway maintenance NPO status > 8 hours Anesthetic plan and risks discussed with Patient and Patient Designated Filtration Plant Mechanic. Use of blood products: consented to blood products. Plan discussed with Anesthesiologist Fret Saw Operator. Post-op Pain Control Plan to use Per surgeon for post-op pain control. Plan for postoperative opioid use documented in this encounter Miscellaneous Notes * Addendum Note - Leni Teran PA - 03/01/2017 8:14 AM CDT Addendum created 03/01/17813 by Leni Teran PA Anesthesia Event edited, Procedure Event Log accessed documented in this encounter Plan of Treatment Not on file documented as of this encounter Visit Diagnoses Not on filedocumented in this encounter Administered Medications Inactive Administered Medications - up to 3 most recent administrations Medication Order MAR Action Action Date Dose Rate Site ceFAZolin (ANCEF) IVPB 2,000 mg 2,000 mg, IV, PRE-PROCEDURE ONCE, 1 dose, Starting on Tue02/28/17 at 1229, Until Tue02/28/17 at 1526, Routine, Antibiotic Indication: Surgical prophylaxis Given 02/28/2017 2:56 PM CDT 2,000 mg dexamethasone (DECADRON) injection INTRA-PROCEDURE PRN, Starting on Tue02/28/17 at 1504, Until Tue02/28/17 at 1721, Routine, Anesthesia Intra-op Given 02/28/2017 3:04 PM CDT 6 mg ePHEDrine injection INTRA-PROCEDURE PRN, Starting on Tue02/28/17 at 1523, Until Tue02/28/17 at 1721, Routine, Anesthesia Intra-op Given 02/28/2017 4:55 PM CDT 5 mg Given 02/28/2017 4:30 PM CDT 10 mg Given 02/28/2017 4:06 PM CDT 5 mg famotidine PF (PEPCID) 20 mg/2 mL injection INTRA-PROCEDURE PRN, Starting on Tue02/28/17 at 1504, Until Tue02/28/17 at 1721, Routine, Anesthesia Intra-op Given 02/28/2017 3:04 PM CDT 20 mg fentaNYL PF (SUBLIMAZE) 50 mcg/mL injection INTRA-PROCEDURE PRN, Starting on Tue02/28/17 at 1436, Until Tue02/28/17 at 1721, Pain (See admin instructions), Routine, Anesthesia Intra-op Given 02/28/2017 3:10 PM CDT 50 mcg Given 02/28/2017 2:36 PM CDT 50 mcg glycopyrrolate (ROBINUL) injection INTRA-PROCEDURE PRN, Starting on Tue02/28/17 at 1702, Until Tue02/28/17 at 1721, Routine, Anesthesia Intra-op Given 02/28/2017 5:02 PM CDT 0.2 mg ketamine (KETALAR) 100 mg/mL injection INTRA-PROCEDURE PRN, Starting on Tue02/28/17 at 1439, Until Tue02/28/17 at 1721, Routine, Anesthesia Intra-op Given 02/28/2017 2:39 PM CDT 20 mg lidocaine 2 % (XYLOCAINE) injection INTRA-PROCEDURE PRN, Starting on Tue02/28/17 at 1438, Until Tue02/28/17 at 1721, Other (See Comment), Routine, Anesthesia Intra-op Given 02/28/2017 2:38 PM CDT 60 mg midazolam (PF) (VERSED) 1 mg/mL injection INTRA-PROCEDURE PRN, Starting on Tue02/28/17 at 1434, Until Tue02/28/17 at 1721, Routine, Anesthesia Intra-op Given 02/28/2017 2:34 PM CDT 2 mg morphine injection INTRA-PROCEDURE PRN, Starting on Tue02/28/17 at 1616, Until Tue02/28/17 at 1721, Pain (See admin instructions), Routine, Anesthesia Intra-op Given 02/28/2017 4:16 PM CDT 5 mg neostigmine (PROSTIGMINE) 4 mg/4 mL (1 mg/mL) injection INTRA-PROCEDURE PRN, Starting on Tue02/28/17 at 1702, Until Tue02/28/17 at 1721, Routine, Anesthesia Intra-op Given 02/28/2017 5:02 PM CDT 2 mg ondansetron (ZOFRAN) 4 mg/2 mL injection INTRA-PROCEDURE PRN, Starting on Tue02/28/17 at 1702, Until Tue02/28/17 at 1721, Nausea/Emesis, Routine, Anesthesia Intra-op Given 02/28/2017 5:02 PM CDT 4 mg phenylephrine in NS 0.5 mg/5 mL (100 mcg/mL) injection INTRA-PROCEDURE PRN, Starting on Tue02/28/17 at 1514, Until Tue02/28/17 at 1721, Routine, Anesthesia Intra-op Given 02/28/2017 4:30 PM CDT 100 mcg Given 02/28/2017 4:06 PM CDT 100 mcg Given 02/28/2017 3:39 PM CDT 200 mcg propofol (DIPRIVAN) injection INTRA-PROCEDURE PRN, Starting on Tue02/28/17 at 1438, Until Tue02/28/17 at 1721, Anesthesia Intra-op Given 02/28/2017 2:38 PM CDT 100 mg rocuronium (ZEMURON) injection INTRA-PROCEDURE PRN, Starting on Tue02/28/17 at 1439, Until Tue02/28/17 at 1721, Routine, Anesthesia Intra-op Given 02/28/2017 3:14 PM CDT 5 mg Given 02/28/2017 2:39 PM CDT 30 mg documented in this encounter Care Teams It Portfolio Manager Relationship Specialty Start Date End Date Tre Rodriguez MD PCP - General Family Practice 11/22/16 documented as of this encounter
--- OUTSIDE RECORDS SUMMARY | 2024-10-27 11:03 | XMS_ITS | Encounter Summary ---
Author Organization [facility] Address [address] [place] [address] Care Team Providers Care Wind Energy Mechanic Name Role Phone Tre Rodriguez MD Primary Care Provider [phone] Reason for Visit * Reason Onset Date Comments Insurance Issues 01/06/2017 Encounter Details Date Type Department Care Team (Late st Contact Info) Description 01/06/2017 Telephone [facility] Orthopedic Surgery - [place] [address] [place] [address] Meenu Rios MD NO ADDRESS ON FILE Insurance Issues Social History Tobacco Use Types Packs/Day Years [...] encounter Miscellaneous Notes * Telephone Encounter - Carisa Luke - 01/06/2017 11:33 AM CST Susan from Dr. Soto's office called stated they do not take this patients insurance, who else would you like to send her too? INIST MECHANIC documented in this encounter Plan of Treatment Not on file documented as of this encounter Visit Diagnoses Not on filedocumented in this encounter Care Teams Wind Energy Mechanic Relationship Specialty Start Date End Date Tre Rodriguez MD PCP - General Family Practice 11/22/16 documented as of this encounter
--- OUTSIDE RECORDS SUMMARY | 2024-10-27 11:03 | XMS_ITS | Encounter Summary ---
Author Organization [facility] Address [address] [place] [address] Care Team Providers Care Gold Frame Assembler Name Role Phone Tre Rodriguez MD Primary Care Provider [phone] Reason for Visit * Reason Comments Medication Refill Encounter Details Date Type Department Care Team (Late st Contact Info) Description 07/22/2017 Refill [facility] Physical Medicine and Rehabilitation [facility] [address] [place] [address] [place] [address] Meenu Rios MD NO ADDRESS ON [...] on filedocumented in this encounter Care Teams Gold Frame Assembler Relationship Specialty Start Date End Date Tre Rodriguez MD PCP - General Family Practice 11/22/16 documented as of this encounter
--- OUTSIDE RECORDS SUMMARY | 2024-10-27 11:03 | XMS_ITS | Encounter Summary ---
Author Organization [facility] Address [address] [place] [address] Care Team Providers Care Manufacturing Quality Technician Name Role Phone Tre Rodriguez MD Primary Care Provider [phone] Encounter Details Date Type Department Care Team (Late st Contact Info) Description 12/27/2023 External Device Data [facility] ABSTRACTION Provider, Abstract [...] on filedocumented in this encounter Care Teams Manufacturing Quality Technician Relationship Specialty Start Date End Date Tre Rodriguez MD PCP - General Family Practice 11/22/16 documented as of this encounter
--- OUTSIDE RECORDS SUMMARY | 2024-10-27 11:03 | XMS_ITS | Encounter Summary ---
Author Organization [facility] Address [address] [place] [address] Care Team Providers Care Locomotive Boilermaker Name Role Phone Tre Rodriguez MD Primary Care Provider [phone] Reason for Visit * Reason Onset Date Comments question disability forms 02/01/2017 Encounter Details Date Type Department Care Team (Late st Contact Info) Description 02/01/2017 Telephone [facility] Physical Medicine and Rehabilitation - [address] [address] Meenu Rios MD NO ADDRESS ON FILE question disability forms Social History Tobacco Use Types Packs/Day Years [...] encounter Miscellaneous Notes * Telephone Encounter - Fernanda Tejada RMA - 02/01/2017 1:42 PM CDT Phoned Ms. Amado to confirm that I faxed her disability paper work to Ms. Alpa Dinh at [facility] [employer] 02-01-17 at [phone]. Pt thanked me for calling. * Telephone Encounter - Kirti Lopez - 02/01/2017 1:31 PM CDT Pt also left message on voicemail about this, asking for return call at [phone]. * Telephone Encounter - Rox Rothman - 02/01/2017 1:[address] Rios-- patient would like a call regarding her disability forms that were suppose to be filled out by Lauren and faxed to her employer last week documented in this encounter Plan of Treatment Not on file documented as of this encounter Visit Diagnoses Not on filedocumented in this encounter Care Teams Locomotive Boilermaker Relationship Specialty Start Date End Date Tre Rodriguez MD PCP - General Family Practice 11/22/16 documented as of this encounter
--- OUTSIDE RECORDS SUMMARY | 2024-10-27 11:03 | XMS_ITS | Encounter Summary ---
Author Organization [facility] Address [address] [place] [address] Care Team Providers Care Rug Cutter Helper Name Role Phone Tre Rodriguez MD Primary Care Provider [phone] Encounter Details Date Type Department Care Team (Late st Contact Info) Description 08/21/2024 External Device Data [facility] ABSTRACTION Provider, Abstract [...] on filedocumented in this encounter Care Teams Rug Cutter Helper Relationship Specialty Start Date End Date Tre Rodriguez MD PCP - General Family Practice 11/22/16 documented as of this encounter
--- OUTSIDE RECORDS SUMMARY | 2024-10-27 11:03 | XMS_ITS | Encounter Summary ---
Author Organization [facility] Address [address] [place] [address] Care Team Providers Care Stores Naval Name Role Phone Tre Rodriguez MD Primary Care Provider [phone] Encounter Details Date Type Department Care Team (Late st Contact Info) Description 07/03/2024 External Device Data [facility] ABSTRACTION Provider, Abstract [...] on filedocumented in this encounter Care Teams Stores Naval Relationship Specialty Start Date End Date Tre Rodriguez MD PCP - General Family Practice 11/22/16 documented as of this encounter
--- OUTSIDE RECORDS SUMMARY | 2024-10-27 11:03 | XMS_ITS | Encounter Summary ---
Author Organization [facility] Address [address] [place] [address] Care Team Providers Care Retreader Name Role Phone Tre Rodriguez MD Primary Care Provider [phone] Reason for Referral * Outpatient Services (Routine) - Closed Specialty Diagnoses / Procedures Referred By Contac t Referred To Contact Ultrasound Diagnoses Pelvic mass Procedures US PELVIS + TRANSVAG NON OB US PELVIS COMPLETE Meenu Rios MD NO ADDRESS ON FILE Referral ID Status Reason Start Date Expiration Date V isits Requested Visits Authorized [id number] Closed [facility] 01/05/2017 02/05/2018 1 1 NT ROOM TEACHER Reason for Visit * Outpatient Services (Routine) - Closed Specialty Diagnoses / Procedures Referred By Contac t Referred To Contact Ultrasound Diagnoses Pelvic mass Procedures US PELVIS + TRANSVAG NON OB US PELVIS COMPLETE Meenu Rios MD NO ADDRESS ON FILE Referral ID Status Reason Start Date Expiration Date V isits Requested Visits Authorized [id number] Closed [facility] 01/05/2017 02/05/2018 1 1 Encounter Details Date Type Department Care Team (Latest Contact Info) Description 01/12/2017 10:00 AM INFANT ROOM TEACHER - 01/12/2017 11:59 PM INFANT ROOM TEACHER Hospital [facility] [place] [address] [place] [address] Meenu Rios MD NO ADDRESS ON FILE Discharge Disposition: Home or Self Care Social [...] this encounter Medications at Time of Discharge Medication Sig Dispensed Refills Start Date End Date diazePAM (DIASTAT ACUDIAL) 10 mg Kit by See Admin Instructions route one time only. 02/28/2017 tapentadol (NUCYNTA) 50 mg tabletIndications:Lum bar radiculopathy, right,Herniated nucleus pulposus, L5-S1, right Take 1 Tablet (50 mg) by mouth every 4 hours. Max Daily Amount: 300 mg 50 Tablet 01/05/2017 01/26/2017 documented as of this encounter Progress Notes * Meenu Rios MD - 01/13/2017 7:40 AM CST Spoke with her regarding pelvic US results and the uterine fibroids, asked her to FU with her highway traffic control technician. She has not heard from Dr Soto's office regarding injection yet so will FU on that. NT ROOM TEACHER documented in this encounter Plan of Treatment Not on file documented as of this encounter Procedures Procedure Name Priority Date/Time Associated Diagnosis Comments US PELVIS + TRANSVAG NON OB Routine 01/12/2017 10:40 AM INFANT ROOM TEACHER Pelvic mass documented in this encounter Results * US PELVIS + TRANSVAG NON OB (01/12/2017 10:40 AM INFANT ROOM TEACHER) Anatomical Region Laterality Modality Pelvis Ultrasound 01/12/2017 10:4 4 AM INFANT ROOM TEACHER Impressions 01/12/2017 2:28 PM INFANT ROOM TEACHER IMPRESSION: Multiple uterine fibroids. DICTATION LOCATION: Location [facility] Narrative 01/12/2017 2:28 PM INFANT ROOM TEACHER US PELVIS + TRANSVAGINAL NON OB DATE: 01/12/2017 HISTORY: 56-year-old female presenting with pelvic mass. TRANSABDOMINAL EVALUATION: Bladder: The bladder appears unremarkable. Uterus: The uterus is normal in size. There are multiple uterine fibroids. The largest is in the rightward aspect of the fundus and measures 2.7 x 3.5 x 2.7 cm. Right ovary: The right ovary appears normal, measuring 2.2 x 1.2 x 2.0 cm. Left ovary: The left ovary appears normal, measuring 2.3 x 1.4 x 1.8 cm. TRANSVAGINAL EVALUATION: Uterus: The uterus is overall normal in size. It measures 7.1 x 4.2 x 6.4 cm. It is heterogenous, with multiple fibroids. The largest is in the rightward aspect of the uterine fundus and measures 3.0 x 2.9 x 3.4 cm. The endometrial stripe measures 2 mm. An additional fibroid at the leftward fundus measures 1.6 x 1.4 x 1.6 cm. Right ovary: The right ovary is not seen transvaginally. Left ovary: The left ovary is not seen transvaginally. Procedure Note Tete Lundberg MD - 01/12/2017 US PELVIS + TRANSVAGINAL NON OB DATE: 01/12/2017 HISTORY: 56-year-old female presenting with pelvic mass. TRANSABDOMINAL EVALUATION: Bladder: The bladder appears unremarkable. Uterus: The uterus is normal in size. There are multiple uterine fibroids. The largest is in the rightward aspect of the fundus and measures 2.7 x 3.5 x 2.7 cm. Right ovary: The right ovary appears normal, measuring 2.2 x 1.2 x 2.0 cm. Left ovary: The left ovary appears normal, measuring 2.3 x 1.4 x 1.8 cm. TRANSVAGINAL EVALUATION: Uterus: The uterus is overall normal in size. It measures 7.1 x 4.2 x 6.4 cm. It is heterogenous, with multiple fibroids. The largest is in the rightward aspect of the uterine fundus and measures 3.0 x 2.9 x 3.4 cm. The endometrial stripe measures 2 mm. An additional fibroid at the leftward fundus measures 1.6 x 1.4 x 1.6 cm. Right ovary: The right ovary is not seen transvaginally. Left ovary: The left ovary is not seen transvaginally. IMPRESSION IMPRESSION: Multiple uterine fibroids. DICTATION LOCATION: [address] Meenu Rios MD US ORDERABLES documented in this encounter Visit Diagnoses Diagnosis Pelvic mass Abdominal or pelvic swelling, mass or lump, unspecified site documented in this encounter Care Teams Retreader Relationship Specialty Start Date End Date Tre Rodriguez MD PCP - General Family Practice 11/22/16 documented as of this encounter
--- OUTSIDE RECORDS SUMMARY | 2024-10-27 11:03 | XMS_ITS | Encounter Summary ---
Author Organization [facility] Address [address] [place] [address] Care Team Providers Care Supervisor [employer] Name Role Phone Tre Rodriguez MD Primary Care Provider [phone] Encounter Details Date Type Department Care Team (Late st Contact Info) Description 07/04/2024 External Device Data [facility] ABSTRACTION Provider, Abstract [...] on filedocumented in this encounter Care Teams Supervisor [employer] Relationship Specialty Start Date End Date Tre Rodriguez MD PCP - General Family Practice 11/22/16 documented as of this encounter
--- OUTSIDE RECORDS SUMMARY | 2024-10-27 11:03 | XMS_ITS ---
Author Organization [facility] Address [address] [place] [address] Care Team Providers Care Buffer Inflated Pad Name Role Phone Geovani Lam [phone] REASON FOR VISIT CC payment error Encounters Encounter Location Date Provider Diagnosis [facility] [address] [place] [address] 07/06/2023 Geovani Lam Plan Of Treatment No Information Progress Notes * Joselyn ESPARZADOB: [birth year] (62 yo F)Acc No.[id number]:07/06/2023 Patient:?Angelia Esparzaly :1960???Age:62 Y???Sex:Female Address:[address] [place] [address] * true * Date:? Generated for Wilmani maegan/Ba/eTransmitting on:?10/27/2024 11:02 AM TOOL SHARPENER
--- OUTSIDE RECORDS SUMMARY | 2024-10-27 11:03 | XMS_ITS | Encounter Summary ---
Author Organization [facility] Address [address] [place] [address] Care Team Providers Care Lump Inspector Name Role Phone Tre Rodriguez MD Primary Care Provider [phone] Reason for Visit * Reason Onset Date Comments Question 02/07/2017 Encounter Details Date Type Department Care Team (Late st Contact Info) Description 02/07/2017 Telephone [facility] Physical Medicine and Rehabilitation - [address] [address] Meenu Rios MD NO ADDRESS ON FILE Question Social History Tobacco Use Types Packs/Day Years [...] encounter Miscellaneous Notes * Telephone Encounter - Ashanti Rai - 02/07/2017 4:[address] Rios pt- Pt would like to talk to you regarding fmla papers documented in this encounter Plan of Treatment Not on file documented as of this encounter Visit Diagnoses Not on filedocumented in this encounter Care Teams Lump Inspector Relationship Specialty Start Date End Date Tre Rodriguez MD PCP - General Family Practice 11/22/16 documented as of this encounter
--- OUTSIDE RECORDS SUMMARY | 2024-10-27 11:03 | XMS_ITS | Encounter Summary ---
Author Organization [facility] Address [address] [place] [address] Care Team Providers Care Cracking Machine Operator Name Role Phone Tre Rodriguez MD Primary Care Provider [phone] Encounter Details Date Type Department Care Team (Late st Contact Info) Description 11/15/2023 External Device Data [facility] ABSTRACTION Provider, Abstract [...] on filedocumented in this encounter Care Teams Cracking Machine Operator Relationship Specialty Start Date End Date Tre Rodriguez MD PCP - General Family Practice 11/22/16 documented as of this encounter
--- OUTSIDE RECORDS SUMMARY | 2024-10-27 11:03 | XMS_ITS | Patient Health Record ---
Author Organization [facility] Address [address] [address] Support Name Relationship Address Phone Joselyn West Guarantor Unknown Reason For Referral No Information Plan Of Treatment No Information
--- OUTSIDE RECORDS SUMMARY | 2024-10-27 11:03 | XMS_ITS | Encounter Summary ---
Author Organization [facility] Address [address] [place] [address] Care Team Providers Care Weaver [employer] Name Role Phone Tre Rodriguez MD Primary Care Provider [phone] Encounter Details Date Type Department Care Team (Late st Contact Info) Description 01/20/2024 External Device Data [facility] ABSTRACTION Provider, Abstract [...] on filedocumented in this encounter Care Teams [employer] Relationship Specialty Start Date End Date Tre Rodriguez MD PCP - General Family Practice 11/22/16 documented as of this encounter
--- OUTSIDE RECORDS SUMMARY | 2024-10-27 11:03 | XMS_ITS | Encounter Summary ---
Author Organization [facility] Address [address] [place] [address] Care Team Providers Care Frame Catcher Name Role Phone Tre Rodriguez MD Primary Care Provider [phone] Reason for Visit * MRI (Routine) - Closed Specialty Diagnoses / Procedures Referred By Contac t Referred To Contact Diagnoses Left shoulder strain, subsequent encounter Procedures MRI SHOULDER WO CONTRAST LEFT Lawrence Crowell MD [address] [place] [address] Referral ID Status Reason Start Date Expiration Date Visits Re quested Visits Authorized [id number] Closed 11/08/2023 11/08/2023 1 1 Encounter Details Date Type Department Care Team (Latest Contact Info) Description 11/08/2023 3:45 PM DRAINAGE DESIGN COORDINATOR Ancillary Procedure [facility] [address] [address] Lawrence Crowell MD [address] [place] [address] Left shoulder strain, subsequent encounter Social History Tobacco Use Types Packs/Day [...] Priority Date/Time Associated Diagnosis Comments MRI SHOULDER WO CONTRAST LEFT Routine 11/08/2023 4:17 PM DRAINAGE DESIGN COORDINATOR Left shoulder strain, subsequent encounter documented in this encounter Results * MRI SHOULDER WO CONTRAST LEFT (11/08/2023 4:17 PM DRAINAGE DESIGN COORDINATOR) Anatomical Region Laterality Modality Upper Extremity Magnetic Resonan ce 11/08/2023 4:18 PM DRAINAGE DESIGN COORDINATOR Impressions 11/09/2023 7:37 AM DRAINAGE DESIGN COORDINATOR IMPRESSION: Partial tear of the infraspinatus tendon at the insertion. Partial tear of the proximal long head of the biceps tendon. Mild degenerative changes of the left shoulder. Tear of the anterior labrum. Narrative 11/09/2023 7:37 AM DRAINAGE DESIGN COORDINATOR EXAM: MRI SHOULDER WO CONTRAST LEFT STUDY [...] is trace fluid in the subacromial/subdeltoid bursa. Procedure Note Pauly Caban MD - 11/09/2023 EXAM: MRI SHOULDER WO CONTRAST LEFT STUDY [...] is trace fluid in the subacromial/subdeltoid bursa. IMPRESSION: Partial tear of the infraspinatus tendon at the insertion. Partial tear of the proximal long head of the biceps tendon. Mild degenerative changes of the left shoulder. Tear of the anterior labrum. Lawrence Crowell MD MR ORDERABLES documented in this encounter Visit Diagnoses Diagnosis Left shoulder strain, subsequent encounter documented in this encounter Care Teams Frame Catcher Relationship Specialty Start Date End Date Tre Rodriguez MD PCP - General Family Practice 11/22/16 documented as of this encounter
--- OUTSIDE RECORDS SUMMARY | 2024-10-27 11:03 | XMS_ITS | Encounter Summary ---
Author Organization [facility] Address [address] [place] [address] Care Team Providers Care Global Analytics Head Name Role Phone Tre Rodriguez MD Primary Care Provider [phone] Reason for Visit * Auth/Cert Specialty Diagnoses / Procedures Referred By Naye t Referred To Contact General Surgery Diagnoses LUMBOSACRAL HNP Procedures HEMILAMINECTOMY MINIMALLY INVASIVE [facility] [address] [place] [address] Referral ID Status Reason Start Date Expiration Date Visits Re quested Visits Authorized [id number] 1 1 Encounter Details Date Type Department Care Team (Late st Contact Info) Description 02/28/2017 1:30 PM CDT - 02/28/2017 3:30 PM CDT Surgery [facility] Operating Room [address] [place] [address] Kassie Garduno MD [address] [facility] [address] [address] -x0 (Work) HEMILAMINECTOMY MINIMALLY INVASIVE, RT. L5-S1 FAR LATERAL & MICRODISKECTOMY Surgery Details Date/Time Status Location OR Service Patient Class Case Class Case Type Trauma Case? 02/28/2017 1:30 PM Posted [facility] MAIN OR 28 Neurological Surgery Surgical OP/Extended Care Elective No Panel 1 Procedure LRB Anes Op Region Wound Class Comments HEMILAMINECTOMY MINIMALLY IN VASIVE, RT. L5-S1 FAR LATERAL & MICRODISKECTOMY N/A General Spine Lumbar Clean -I Surgeon Surgeon Role Service Panel Kassie Garduno MD Primary Neurological Surgery 1 Case Notes PHCS--PP--CPT [id number], [id number] documented in this encounter Social History Tobacco [...] Sign Reading Time Taken Comments Blood Pressure 122/79 02/28/2017 12:40 PM CDT Pulse 86 02/28/2017 12:40 PM CDT Temperature 36.1 ??C (97 ??F) 02/28/2017 12:25 PM CDT Respiratory Rate 18 02/28/2017 12:40 PM CDT Oxygen Saturation 97% 02/28/2017 12:40 PM CDT Inhaled Oxygen Concentration - - Weight 62.7 kg (138 lb 3.2 oz) 02/28/2017 12:25 PM CDT Height - - Body Mass Index 23 02/22/2017 9:40 AM CDT documented in this encounter Discharge Instructions * Discharge Instructions* Gayle Greenwood PA - 02/28/2017 2:28 PM CDT Thank you for choosing [facility] for your care! The following is a list of instructions, from your provider, to follow upon your discharge to ensure you have the optimal recovery from your recent injury or surgery. Follow-up care is a vega part of your treatment and safety. Be sure to make and go to all appointments, and call your doctor if you are having problems. If you do not already have a follow-up appointment made, call Dr. Garduno's office in the next 1-3 days to make follow up appointment for 3-4 weeks at . It is also a good idea to know your test results and keep a list of the medicines y ou take. Would attempt to wean your Nucenta - go to once a day and take prescribed pain medications for breakthrough. - Medications will be prescribed for you at your provider???s discretion. These medications are to be used as instructed; if they are taken more often that prescribed they will not be refilled early and in most cases will not be refilled at all. > When a refill is needed, you should contact our office 2-3 business days before your prescription runs out. Medications will NOT be refilled by ???wardrobe consultant?? providers after hours! > Many pain medications contain Tylenol (Acetaminophen). Do not consume more than 4,000 mg of Tylenol per day in total with any combination of medications. > Pain medications can cause constipation. Please use an over the counter stool softener as directed, while taking pain medications. Consult your local pharmacist with questions or recommendationson stool softeners. If constipation persists, contact our office or your primary care provider. > While under our care, you are not to receive pain medications or other controlled substances from any other provider unless our office is notified and approves. Any attempts to do so will resultin refusal to prescribe any further pain medications and possible dismissal from our practice. - Your wound and/or dressing should remain clean and dry for 2 days after surgery. On postoperativeday 2 the dressing (if present) should be removed and it is okay to shower and get the incision wet. Pad dry afterwards. No further dressing should be required from that point on. Do not put any creams or ointments on the incision > It is normal for there to be a small amount of discharge (bloody or blood tinged) present froma surgical wound for the first 1-3 days. > The wound should be examined twice a day for signs of infection. Mild redness or bruising is to be expected but indications that an infection may be starting would include; An increase in redness, swelling, or discharge, a foul odor present around the incision, and/or a fever greater than 101 ??F - Showering is permitted, however we ask that you do not take a bath, sit in a whirlpool / Jacuzzi,or go swimming until further notice. For only the first 2 days after surgery, it will be necessary for you to cover your wound/dressing with plastic and tape to keep it dry. - Walking is essential for the healing process after surgery. We would like you to slowly advance your walking. This should be done on relatively flat clear ground (inside or out) or can be done on atreadmill. Remember this goal does not have to happen all at once, slowly increase your distance and duration. This can be broken into more more than one walk per day as tolerated. Patients who walk a s directed after surgery rarely require Physical Therapy. In the unlikely event this issue arises your provider will direct hospital staff to make the appropriate arrangements. - No lifting over 5 pounds (a gallon of milk) or bending/twisting until further notice. Each of these activities places an unnecessary amount of stress onto the body and can impede the delicate healing process. > Instead of bending at the waist, keep your back straight and bend at the knees. > Instead of twisting your torso, keep your back straight and turn your entire body with your feet. - You may sleep in any position which makes you comfortable. Many patients find comfort sleeping eliazar reclining chair. It is not abnormal to have difficulty sleeping for the first several weeks following your surgery. We recommend trying Benadryl or Tylenol PM as directed to help with your sleepingdifficulties. Both medications are over the counter and available without prescription. - NO SMOKING!!! Smoking dramatically increases the probability of developing postoperative wound infections - Common complaints after lumbar and/or thoracic spine surgery include, but are not limited to: numbness and/or tingling in the legs, pain around the incision and surrounding tissues, muscle spasms, or stiffness of the middle to low back. Contact our office if these symptoms persist or if an acute change occurs. - No driving for the first 3-5 days, and not while taking narcotics. There are no restrictions for riding on short trips, however if you take a longer trip, arrangements should be made to make regular stops to get out of the vehicle and ???stretch?? . - Swelling is an unfortunate event that will take place with any surgery and is the primary source of your postoperative discomfort. While walking and regular approved activities helps control inflammation, there are additional steps you can take to minimize swelling. > Place ice over the surgical site and surrounding tissue for twenty minutes, followed by applying a low/medium heat (heating pad) for an additional twenty minutes every 1-2 hours as needed for pain relief. > You may use of over the counter anti-inflammatory medications (Ibuprofen, Motrin, Aleve, Advil, etc) as directed on the package label. These types of medicines will significantly reduce the amount of discomfort you experience after surgery from swelling. It should be noted that if you have andallergy to any of these medications, or a history of ulcers or kidney disease you should consult you primary care provider prior to starting these medications documented in this encounter Medications at Time of Discharge Medication Sig Dispensed Refills Start Date End Date diazePAM (VALIUM) 5 mg tablet Take 1 Tablet (5 mg) by mouth 3 times daily as needed for Spasm or Discomfort. 60 Tablet 02/28/2017 HYDROcodone-acetaminophe n (NORCO) 5-325 mg tablet Take 1-2 Tablets by mouth every 6 hours as needed for Pain, Break-Through. Max Daily Amount: 8 Tablets 60 Tablet 02/28/2017 venlafaxine (EFFEXOR) 75 mg tablet Take 75 mg by mouth daily at bedtime. ibuprofen (MOTRIN) 400 mg tablet Take 400 mg by mouth every 6 hours as needed for Pain, Mild. tapentadol (NUCYNTA ER) 100 mg Extended Release 12 hour tabletIndications:Lumbar radiculopathy, right,Herniated nucleus pulposus, L5-S1, right,Myofascial pain syndrome, cervical,Piriformis syndrome of right side Take 1 Tablet (100 mg) by mouth every 12 hours. Max Daily Amount: 200 mg 60 Tablet 01/26/2017 documented as of this encounter Progress Notes * Gayle Greenwood PA - 03/01/2017 8:41 AM CDT Neurosurgery Progress Note 1 Day Post-Op Procedure(s) (LRB): HEMILAMINECTOMY MINIMALLY INVASIVE, RT. L5-S1 FAR LATERAL & MICRODISKECTOMY (N/A) describes an ache along L5 distribution, is not as intense as preop Active Hospital Problems Diagnosis ??? Tobacco use ??? Cigarette dependence ??? Herniated nucleus pulposus, lumbar Resolved Hospital Problems Diagnosis Date Resolved No resolved problems to display. Vitals: 02/28/17 1825 02/28/17 2219 03/01/17 0358 03/01/17 0732 BP: (!) 87/49 96/62 105/61 105/54 BP Location: Right arm Right arm Left arm Right arm Patient Position (BP): Lying left side Supine Lying left side Lying left side Pulse: 65 84 81 65 Resp: 16 12 12 Temp: 98.2 ??F (36.8 ??C) 98.4 ??F (36.9 ??C) 98.8 ??F (37.1 ??C) 98 ??F (36.7 ??C) TempSrc: Temporal Temporal Temporal Temporal SpO2: 96% 98% 93% 96% Weight: PE: Awake, Alert, Ox3. PERRL. Speech intact. Follows all commands. Moves all extremities full/symmetric. Sensory intact to LT. Strength 5/5 rubia. Incision is clean/dry/intact - dsg intact, clean No results for input(s): WBC, HGB, HCT, PLT, NA, K, CL, CO2, BUN, CREAT, GLUCOSE, ALT, AST, CPK, CKMB, TROPONIN, TROPONIINT, TROPINTR, INR in the last 72 hours. Impression/Plan: Pain--well controlled Discussed post-op expectations and instructions. Discharge to home today. Gayle Greenwood PA-C Pgr: [phone] * Tonya Wilkes RN - 03/01/2017 5:27 AM CDT Patient has appeared asleep throughout most of the night tonight with intermittent c/o lower back and leg pain controlled with PO pain medication. Tolerating PO well, voiding large amounts clear light yellow urine without difficulty. IS teaching completed and encouraged. VSS. Lumbar dressing dry and intact, neuro checks WNL. She is currently resting quietly with call light and personal items in reach. * Gayle Greenwood PA - 02/28/2017 5:25 PM CDT [place], [place] [address] Neurosurgery Brief Operative Note Joselyn Amado 1960 [id number] Today's Date: 02/28/2017 Pre-op Dx: far lateral right L5-S1 hnp Post op Dx: Same Surgery Performed: Procedure(s) (LRB): HEMILAMINECTOMY MINIMALLY INVASIVE, RT. L5-S1 FAR LATERAL & MICRODISKECTOMY (N/A) Specimen: None EBL: 50 mL's Anesthesia: General Complications: None Patient was transferred to the post operative recovery unit in stable condition. Surgeon: Dr. Kassie Garduno M.D. Assist: Gayle Greenwood PA-C documented in this encounter H&P Notes * Gayle Greenwood PA - 02/28/2017 2:25 PM CDT Pre-surgery Note Joselyn Amado is a 56 y.o. female with far lateral right L5-S1 hnp PE update: Chest: RRR Lungs: CTAB There have been no significant changes to patient's clinical exam or status since H&P or last progress note. Patient's cardiopulmonary status is stable and surgical consent has been reviewed and in the chart. All questions of the patient and family have been answered to their satisfaction and to their level of understanding. Risks of recurrent disease, need for additional treatment, nonunion,infection, paralysis, hematoma, CSF leak have been discussed in detail. The patient and family consent to surgery and wish to proceed. Plan: MIS right far lateral L5-S1 microdiscectomy VENESSA Snell 02/28/2017 documented in this encounter OR Notes * Operative Report - Kassie Garduno MD - 03/01/2017 12:11 AM CDT [place], [place] [address] Operative Report CSN: [id number] DATE OF SERVICE: 02/28/2017 SURGEON Kassie Garduno MD PREOPERATIVE DIAGNOSIS Far-lateral right-sided L5-S1 disk herniation. POSTOPERATIVE DIAGNOSIS Far-lateral right-sided L5-S1 disk herniation. OPERATION NAME 1. Far-lateral L5-S1 right-sided microdiskectomy. 2. Intraoperative microscope use. ANESTHESIA lean process deployment consultant Romulo Prakash, who participated in both the transportation and positioning of the patient and also participated throughout the procedure providing retraction, suction, and irrigation. DESCRIPTION OF PROCEDURE The patient was brought to the operating room and placed in supine position. General endotracheal anesthesia was induced. Following that, the patient was turned to the prone position on a Neo frame. All pressure points were checked and padded. She was then marked at the L5-S1 disk space on the right-hand side for a planned paramedian approach. She was prepped and draped in the usual sterile fashion. Local anesthetic was infiltrated. A 10-blade scalpel was used to make an incision, and dissection was performed down through the fascia. A series of [employer] system dilators were then introduced over the foramen on the right-hand side. I made sure that I encompassed the superior aspectof the facet of L5-S1, the inferior aspect of the facet of L4-5 along with the pars medially. I then brought the microscope into the field. I dissected free the overlying soft tissue, identifying my landmarks. I then used a drill to remove a small portion of the superior facet along with a small portion of the superior aspect of the L5-S1 facet along with a small portion of the inferior aspect of the L4-5 facet and a portion of the medial pars. I then used a Kerrison punch to carefully remove any overlying soft tissue. I did this until I could identify where there was ligament and at that time, I very carefully opened this up. I then identified epidural fat. The nerve was very compressed and very distorted. I took an extended period of time to identify the nerve. I was able to identify the pedicle both superiorly and inferiorly in its location for a transpedicle approach to the far-lateral space. At that time once I was able to identify the nerve, I could see just inferior to it a very large disk herniation that was compressing it. I incised the overlying anulus and took it out in apiecemeal fashion. Once that was completed, the nerve extended back into a more natural position and I could inspect it more thoroughly and at that time, the nerve did not appear to be injured in anyway. Once I felt the nerve was as decompressed as I could get it, I copiously irrigated the wound. I placed 40 mg of Depo-Medrol in the base of the wound and very carefully removed the tube retractor. I then reapproximated the fascia and then removed the microscope from the field. Lastly, I reapproximated the skin edges and closed the skin using skin glue. The patient was extubated without difficulty and taken to PACU in hemodynamically stable condition. There were no complications for this case. All sponge and needle counts were correct. TQ:MEDQ DID: [id number] Dictated by: Kassie Garduno MD documented in this encounter Miscellaneous Notes * Care Plan - Tonya Wilkes RN - 02/28/2017 9:14 PM CDT Problem: Pain, Potential/Actual Goal: Verbalizes/displays acceptable comfort level or baseline comfort level Outcome: Progressing Problem: Infection Risk/Actual Goal: Infection Risk/Actual: Infection prevention, control, or resolution by discharge Outcome: Progressing Problem: Safety/Fall Goal: Safety/Fall: Absence of fall, injury, harm during hospitalization Outcome: Progressing Problem: Discharge Planning Goal: Identify discharge needs upon admission and through discharge Outcome: Progressing * Care Plan - Gayle Mendoza RN - 02/28/2017 5:22 PM CDT Potential for pain related to surgical/procedural intervention Interventions: Assess level of pain/comfort utilizing verbal/nonverbal pain scales; assess culturalor taoist indicators attached to pain; administer pain medications as prescribed; utilize non-pharmacologic pain control and comfort measures Expected Outcome: Patient demonstrates and reports adequate pain control Outcome Met: prn meds available, pain well controlled Potential for alteration in thermoregulatory, circulatory, respiratory fluid & electrolyte status Interventions: Perform ongoing physical assessment; maintenance of airway or mechanical ventilation; monitor level of consciousness; initiate safety measures; observe patient???s respiratory status and oxygen saturation; obtain measurements of ongoing hemodynamic parameters, cardiac rhythm, and temperature; monitor intake and output; inspect wound dressings and/or drain output; perform prescribedtherapeutic regimens, treatments and tests; document and/or communicate care given Expected Outcome: Patient will maintain functional status compatible with preoperative status Outcome Met: vss, normothermic, patient able to maintain O2 sats, no bleeding or hematoma from surgical site * Care Plan - Radha Chavez, DEANN - 02/28/2017 12:28 PM CDT Knowledge deficit related to procedure/environment Interventions: Assess learning needs and willingness to learn; give clear, concise explanations of the environment and sequence of events surrounding the periop experience; address patient/family questions and concerns; provide teaching as indicated, provide teaching related to postoperative pain assessment utilizing pain scales Expected Outcome: Patient verbalizes or demonstrates awareness/understanding of surgery and perioperative experience Outcome Met: yes documented in this encounter Plan of Treatment Not on file documented as of this encounter Procedures Procedure Name Priority Date/Time Associated Diagnosis Comments TELEMETRY REPORT 03/01/2017 4:20 PM CDT XR FLUORO LESS THAN 1 HOUR Routine 02/28/2017 5:09 PM CDT HEMILAMINECTOMY MINIMALLY INVASIVE 02/28/2017 2:18 PM CDT LUMBOSACRAL HNP Case Notes [facility]--PP--CPT 46004, [id number] POC , URINE Routine 02/28/2017 12:43 PM CDT VERIFICATION BLOOD GROUP Stat 02/28/2017 12:29 PM CDT Cough documented in this encounter Results * TELEMETRY REPORT (03/01/2017 4:20 PM CDT) Provider Scanning ECG ORDERABLES * XR FLUORO LESS THAN 1 HOUR (02/28/2017 5:09 PM CDT) Anatomical Region Laterality Modality Computed Radiogr aphy 02/28/2017 5:10 PM CDT Impressions 02/28/2017 5:14 PM CDT IMPRESSION: C-arm fluoroscopy and spot films were provided for performance of L5-S1 microdiscectomy. DICTATION LOCATION: Location 1 - [facility] Narrative 02/28/2017 5:14 PM CDT EXAM: C-ARM FLUOROSCOPY DATE: 02/28/2017 5:09 PM HISTORY: Cough,Pain. ?. FLUOROSCOPY ??Time: 0.3 minutes ??Dose: Not recorded Procedure Note Placido Christopher MD - 02/28/2017 EXAM: C-ARM FLUOROSCOPY DATE: 02/28/2017 5:09 PM HISTORY: Cough,Pain. . FLUOROSCOPY Time: 0.3 minutes Dose: Not recorded IMPRESSION IMPRESSION: C-arm fluoroscopy and spot films were provided for performance of L5-S1 microdiscectomy. DICTATION LOCATION: Location 1 - [facility] Kassie Garduno MD DIAGNOSTIC IMAGING O RDERABLES * POC , URINE (02/28/2017 12:43 PM CDT) HCG QUAL URINE Negative Negative 02/28/2017 2:15 PM CDT [facility] Urine 02/28/2017 12:4 3 PM CDT 02/28/2017 2:15 PM CDT Kassie Garduno MD POINT OF CARE TESTIN G Performing Organization Address [facility]/ZIP Co de Phone Number [facility] [employer] [facility] CLIA# [id number] [address] [place] [address] * VERIFICATION BLOOD GROUP (02/28/2017 12:29 PM CDT) ABO GROUP B 02/28/2017 1:32 PM CDT [facility] RH (D) TYPE Positive 02/28/2017 1:32 PM CDT [facility] Blood Venipuncture / Unknown 02/28/2017 12:29 PM CDT 02/28/2017 1:05 PM CDT Laney Dolan MD BLOOD BANK [facility] [employer] [facility] CLIA# [id number] [address] [place] [address] documented in this encounter Visit Diagnoses Not on filedocumented in this encounter Administered Medications Inactive Administered Medications - up to 3 most recent administrations Medication Order MAR Action Action Date Dose Rate Site bacitracin (BACI-IM) 50,000 Units in sodium chloride 0.9 % irrigation 500 mL IRRIGATION 50,000 Units, Irrigation, INTRA-PROCEDURE ONCE, 1 dose, Starting on Tue02/28/17 at 1405, Until Tue02/28/17 at 1518, Routine, Intra-op, Antibiotic Indication: Surgical prophylaxis Given 02/28/2017 3:18 PM CDT 50,000 Units Operative Site bupivacaine-EPINEPHrine (SENSORCAINE-EPINEPHRIN E) 0.5 %-1:200,000 injection INTRA-PROCEDURE PRN, Starting on Tue02/28/17 at 1518, Until Tue02/28/17 at 1716, Routine, Intra-op Given 02/28/2017 3:18 PM CDT 10 mL Operative Site diazePAM (VALIUM) tablet 5 mg 5 mg, Oral, THREE TIMES DAILY PRN, Starting on Tue02/28/17 at 1721, Until Tue03/01/17 at 1131, Spasm, Discomfort, Routine docusate sodium (COLACE) capsule 100 mg 100 mg, Oral, TWO TIMES DAILY, First dose on Tue02/28/17 at 2100, Until Discontinued, Routine, Post-op - Floor Given 03/01/2017 8:15 AM CDT 100 mg Given 02/28/2017 9:01 PM CDT 100 mg fentaNYL PF (SUBLIMAZE) 50 mcg/mL injection 25 mcg 25 mcg, IV, POST-PROCEDURE Q 3 MINUTES PRN, 4 doses, Starting on Tue02/28/17 at 1234, Until Tue02/28/17 at 1758, Pain, Mild, For pain scale 1-3, Routine, PACU Given 02/28/2017 5:58 PM CDT 25 mcg Given 02/28/2017 5:52 PM CDT 25 mcg Given 02/28/2017 5:34 PM CDT 25 mcg HYDROcodone-acetaminophen (NORCO) 10-325 mg per tablet 1 Tablet 1 Tablet, Oral, EVERY 4 HOURS PRN, Starting on Tue02/28/17 at 1722, Until Tue03/01/17 at 1131, Pain (See admin instructions), Pain, Severe, Routine Given 03/01/2017 5:13 AM CDT 1 Tablet HYDROcodone-acetaminophen (NORCO) 5-325 mg per tablet 1 Tablet 1 Tablet, Oral, EVERY 4 HOURS PRN, Starting on Tue02/28/17 at 1722, Until Tue03/01/17 at 1131, Pain (See admin instructions), Pain, Moderate, Routine Given 03/01/2017 1:19 AM CDT 1 Tablet HYDROmorphone (DILAUDID) 1 mg/mL injection 0.25 mg 0.25 mg, IV, POST-PROCEDURE Q 5 MINUTES PRN, 4 doses, Starting on Tue02/28/17 at 1234, Until Tue02/28/17 at 1758, Pain, Moderate, For pain scale 4-6, Routine, PACU Given 02/28/2017 5:58 PM CDT 0.25 mg Given 02/28/2017 5:52 PM CDT 0.25 mg Given 02/28/2017 5:34 PM CDT 0.25 mg lactated ringers solution IV, at 150 mL/hr, PRE-PROCEDURE CONTINUOUS, Starting on Tue02/28/17 at 1230, Until Tue02/28/17 at 1721, Routine New Bag 02/28/2017 12:54 PM CDT 150 mL/hr lactated ringers solution IV, at 125 mL/hr, POST-PROCEDURE CONTINUOUS, Starting on Tue02/28/17 at 1245, Until Tue03/01/17 at 1131, Routine, PACU Started by Another Clinician 02/28/2017 12:45 PM CDT 125 mL/hr lidocaine PF 2 % (XYLOCAINE MPF) injection 0.3 mL 0.3 mL, Infiltration, ONE TIME ONLY, 1 dose, On Tue02/28/17 at 1230, Routine Given 02/28/2017 12:54 PM CDT 0.3 mL Arm, Left methylPREDNISolone acetate (DEPO-Medrol) 40 mg/mL injection INTRA-PROCEDURE PRN, Starting on Tue02/28/17 at 1648, Until Tue02/28/17 at 1716, Routine, Intra-op Given 02/28/2017 4:48 PM CDT 40 mg Operative Site MORPHINE 10 MG/ML INJECTION SO 1 dose, Starting on Tue02/28/17 at 1305, Until Tue02/28/17 at 1307, Kathy METCALF: cabinet override Given 02/28/2017 1:07 PM CDT 2 mg water sterile irrigation irrigation INTRA-PROCEDURE PRN, Starting on Tue02/28/17 at 1518, Until Tue02/28/17 at 1716, Routine, Intra-op Given 02/28/2017 3:18 PM CDT 250 mL Operative Site documented in this encounter Active and Recently Administered Medications Times are shown in CDT. Scheduled Medication Order 02/27/2017 02/28/2017 03/01/2017 bacitracin (BACI-IM) 50,000 Units in sodium chloride 0.9 % irrigation 500 mL IRRIGATION (COMPLETED) 50,000 Units, Irrigation, INTRA-PROCEDURE ONCE, 1 dose, Starting on Tue02/28/17 at 1405, Until Tue02/28/17 at 1518, Routine, Intra-op, Antibiotic Indication: Surgical prophylaxis 1518 (Given - Provider: Kassie Garduno MD - Comment: 500 ml on sterile field for irrigation as needed) ceFAZolin (ANCEF) IVPB 2,000 mg (COMPLETED) 2,000 mg, IV, PRE-PROCEDURE ONCE, 1 dose, Starting on Tue02/28/17 at 1229, Until Tue02/28/17 at 1526, Routine, Antibiotic Indication: Surgical prophylaxis 1456 (Given - Provider: AMMY Monaco)1526 (Stopped - Provider: AMMY Monaco) docusate sodium (COLACE) capsule 100 mg 100 mg, Oral, TWO TIMES DAILY, First dose on Tue02/28/17 at 2100, Until Discontinued, Routine, Post-op - Floor 2101 (Given - Provider: Tonya Wilkes RN) 0815 (Given - Provider: Penny Younger RN) lidocaine PF 2 % (XYLOCAINE MPF) injection 0.3 mL (COMPLETED) 0.3 mL, Infiltration, ONE TIME ONLY, 1 dose, On Tue02/28/17 at 1230, Routine 1254 (Given - Provider: Radha Chavez RN - Comment: for IV start) morphine 4 mg/mL injection 2 mg 2 mg, IV, ONE TIME ONLY, 1 dose, On Tue02/28/17 at 1315, Routine 1315 (Canceled Entry - Provider: Penny Younger RN) naloxone (NARCAN) 0.4 mg/mL injection 0.1 mg 0.1 mg, IV, SEE ADMIN INSTRUCTIONS, Starting on Tue02/28/17 at 1831, Until Tue03/01/17 at 1131, Routine, Post-op - Floor tapentadol (NUCYNTA ER) SR 12 hour tablet 100 mg 100 mg, Oral, EVERY 12 HOURS (BlD), First dose on Tue02/28/17 at 2100, Until Discontinued, Routine, Previous Med: tapentadol (NUCYNTA ER) 100 mg Extended Release 12 hour tablet - Orig Sig - Take 1 Tablet (100 mg) by mouth every 12 hours. Max Daily Amount: 200 mg 2100 (Not Given - Provider: Tonya Wilkes RN - Reason: Clarify-Other (Comment) - Comment: unavailable; pt states ok to hold tonight) 0900 (Canceled Entry - Provider: Penny Younger RN) Continuous Medication Order 02/27/2017 02/28/2017 03/01/2017 lactated ringers solution (CANCELED) IV, at 150 mL/hr, PRE-PROCEDURE CONTINUOUS, Starting on Tue02/28/17 at 1230, Until Tue02/28/17 at 1721, Routine 1254 (New Bag - Provider: Radha Chavez RN)1545 (Fluid Volume - Provider: AMMY Spear)1700 (Fluid Volume - Provider: AMMY Spear) lactated ringers solution IV, at 125 mL/hr, POST-PROCEDURE CONTINUOUS, Starting on Tue02/28/17 at 1245, Until Tue03/01/17 at 1131, Routine, PACU 1245 (Started by Another Clinician - Provider: Penny Younger RN) 0111 (Stopped - Provider: Tonya Wilkes RN) PRN Medication Order 02/27/2017 02/28/2017 03/01/2017 acetaminophen (TYLENOL) tablet 650 mg 650 mg, Oral, EVERY 6 HOURS PRN, Starting on Tue02/28/17 at 1831, Until Tue03/01/17 at 1131, Other (See Comment), See admin instructions, Routine, Post-op - Floor bupivacaine-EPINEPHrine (SENSORCAINE-EPINEPHRINE ) 0.5 %-1:200,000 injection (CANCELED) INTRA-PROCEDURE PRN, Starting on Tue02/28/17 at 1518, Until Tue02/28/17 at 1716, Routine, Intra-op 1518 (Given - Provider: Kassie Garduno MD) diazePAM (VALIUM) tablet 5 mg 5 mg, Oral, THREE TIMES DAILY PRN, Starting on Tue02/28/17 at 1721, Until Tue03/01/17 at 1131, Spasm, Discomfort, Routine diphenhydrAMINE (BENADRYL) tablet 25 mg 25 mg, Oral, EVERY 8 HOURS PRN, Starting on Tue02/28/17 at 1831, Until Tue03/01/17 at 1131, Other (See Comment), Histamine Reaction, Routine, Post-op - Floor fentaNYL PF (SUBLIMAZE) 50 mcg/mL injection 25 mcg (COMPLETED) 25 mcg, IV, POST-PROCEDURE Q 3 MINUTES PRN, 4 doses, Starting on Tue02/28/17 at 1234, Until Tue02/28/17 at 1758, Pain, Mild, For pain scale 1-3, Routine, PACU 1731 (Given - Provider: Gayle Mendoza RN)1734 (Given - Provider: Gayle Mendoza RN)1752 (Given - Provider: Gayle Mendoza RN)1758 (Given - Provider: Gayle Mendoza RN) HYDROcodone-acetaminophe n (NORCO) 10-325 mg per tablet 1 Tablet 1 Tablet, Oral, EVERY 4 HOURS PRN, Starting on Tue02/28/17 at 1722, Until Tue03/01/17 at 1131, Pain (See admin instructions), Pain, Severe, Routine 0513 (Given - Provid er: Tonya Wilkes RN) HYDROcodone-acetaminophe n (NORCO) 5-325 mg per tablet 1 Tablet 1 Tablet, Oral, EVERY 4 HOURS PRN, Starting on Tue02/28/17 at 1722, Until Tue03/01/17 at 1131, Pain (See admin instructions), Pain, Moderate, Routine 0119 (Given - Provid er: Tonya Wilkes RN) HYDROmorphone (DILAUDID) 1 mg/mL injection 0.25 mg (COMPLETED) 0.25 mg, IV, POST-PROCEDURE Q 5 MINUTES PRN, 4 doses, Starting on Tue02/28/17 at 1234, Until Tue02/28/17 at 1758, Pain, Moderate, For pain scale 4-6, Routine, PACU 1730 (Given - Provider: Gayle Mendoza, DEANN)1734 (Given - Provider: Gayle Mendoza RN)1752 (Given - Provider: Gayle Mendoza, DEANN)1758 (Given - Provider: Gayle Mendoza RN) methylPREDNISolone acetate (DEPO-Medrol) 40 mg/mL injection (CANCELED) INTRA-PROCEDURE PRN, Starting on Tue02/28/17 at 1648, Until Tue02/28/17 at 1716, Routine, Intra-op 1648 (Given - Provider: Kassie Garduno MD) metoclopramide HCl (REGLAN) injection 10 mg 10 mg, IV, EVERY 6 HOURS PRN, Starting on Tue02/28/17 at 1831, Until Tue03/01/17 at 1131, Nausea/Emesis, Routine, Post-op - Floor ondansetron (ZOFRAN ODT) tablet 4 mg 4 mg, Oral, EVERY 6 HOURS PRN, Starting on Tue02/28/17 at 1831, Until Tue03/01/17 at 1131, Nausea/Emesis, Routine, Post-op - Floor ondansetron (ZOFRAN) 4 mg/2 mL injection 4 mg 4 mg, IV, EVERY 6 HOURS PRN, Starting on Tue02/28/17 at 1831, Until Tue03/01/17 at 1131, Nausea/Emesis, Routine, Post-op - Floor water sterile irrigation irrigation (CANCELED) INTRA-PROCEDURE PRN, Starting on Tue02/28/17 at 1518, Until Tue02/28/17 at 1716, Routine, Intra-op 1518 (Given - Provider: Kassie Garduno MD - Comment: none administered to patient. used to soak instruments) No Frequency Medication Order 02/27/2017 02/28/2017 03/01/2017 MORPHINE 10 MG/ML INJECTION SO (COMPLETED) 1 dose, Starting on Tue02/28/17 at 1305, Until Tue02/28/17 at 1307, Kathy OMNICELL: cabinet override 1307 (Given - Provider: Rakel Chavez RN) documented in this encounter Care Teams Global Analytics Head Relationship Specialty Start Date End Date Tre Rodriguez MD PCP - General Family Practice 11/22/16 documented as of this encounter
--- OUTSIDE RECORDS SUMMARY | 2024-10-27 11:03 | XMS_ITS | Encounter Summary ---
Author Organization [facility] Address [address] [place] [address] Care Team Providers Care Ware Cleaner Name Role Phone Tre Rodriguez MD Primary Care Provider [phone] Encounter Details Date Type Department Care Team (Late st Contact Info) Description 02/23/2017 Orders Only [facility] Physical Medicine and Rehabilitation - [place] [address] [place] [address] Meenu Rios MD NO ADDRESS ON FILE Lumbar radiculopathy, right; Herniated nucleus pulposus, L5-S1, right Social History Tobacco Use Types Packs/Day Years [...] as of this encounter Visit Diagnoses Diagnosis Lumbar radiculopathy, right Herniated nucleus pulposus, L5-S1, right Displacement of lumbar intervertebral disc without myelopathy documented in this encounter Care Teams Ware Cleaner Relationship Specialty Start Date End Date Tre Rodriguez MD PCP - General Family Practice 11/22/16 documented as of this encounter
--- OUTSIDE RECORDS SUMMARY | 2024-10-27 11:03 | XMS_ITS | Encounter Summary ---
Author Organization [facility] Address [address] [place] [address] Care Team Providers Care Visual Merchandising Coordinator Name Role Phone Tre Rodriguez MD Primary Care Provider [phone] Reason for Referral * Eval and Treat (Routine) - Closed Specialty Diagnoses / Procedures Referred By Contac t Referred To Contact Neurosurgery Diagnoses Lumbar radiculopathy, right Herniated nucleus pulposus, L5-S1, right Meenu Rios MD NO ADDRESS ON FILE Kassie Garduno MD [address] [place] [phone] Referral ID Status Reason Start Date Expiration Date V isits Requested Visits Authorized [id number] Closed CRS To Schedule (STL) 01/26/2017 01/26/2018 1 1 * Eval and Treat (Routine) - Closed Specialty Diagnoses / Procedures Referred By Contac t Referred To Contact Diagnoses Lumbar radiculopathy, right Herniated nucleus pulposus, L5-S1, right Meenu Rios MD [place] [id number] [address] Referral ID Status Reason Start Date Expiration Date Visits Requested Visits Authorized [id number] Closed Ordering Department To Schedule 01/26/2017 01/26/2018 1 1 Reason for Visit * Reason Comments LOW BACK PAIN F/u after Injection with Dr. Soto. Encounter Details Date Type Department Care Team (Latest Contact Info) Description 01/26/2017 9:40 AM CDT Office Visit [facility] Physical Medicine and Rehabilitation - [place] [address] [address] Meenu Rios MD NO ADDRESS ON FILE Lumbar radiculopathy, right (Primary Dx); Herniated nucleus pulposus, L5-S1, right; Myofascial pain syndrome,; Piriformis syndrome of right side Social History Tobacco Use Types Packs/Day Years [...] Sign Reading Time Taken Comments Blood Pressure 96/66 01/26/2017 9:47 AM CDT Pulse 99 01/26/2017 9:47 AM CDT Temperature - - Respiratory Rate - - Oxygen Saturation - - Inhaled Oxygen Concentration - - Weight 63.5 kg (140 lb) 01/26/2017 9:47 AM CDT Height 165.1 cm (5' 5 ) 01/26/2017 9:47 AM CDT Body Mass Index 23.3 01/26/2017 9:47 AM CDT documented in this encounter Progress Notes * Meenu Rios MD - 01/26/2017 10:18 AM CDT Patient is seen in FU for low back pain. She has undergone L5-[address] Burrows on 01/17/17 and she is taking 4-5 Nucynta per day and Flexeril 4 per day. There is not improvement of her pain. Pain is described as pain in right leg more than back (aching, burning in character; 8/10 in severity). Exacerbating factors identifiable by patient are standing, sitting, walking. Pain is improved with recumbency, medication. There is radiation of pain to the right lateral thigh. She admits to numbness or tingling. Current Medication for pain: Nucynta ER (changing to 100 mg bid) Current Outpatient Prescriptions on File Prior to Visit Medication Sig Dispense Refill ??? diazePAM (DIASTAT ACUDIAL) 10 mg Kit by See Admin Instructions route one time only. No current facility-administered medications on file prior to visit. No Known Allergies Past Medical History: Diagnosis Date ??? Patient denies relevant medical history Past Surgical History: Procedure Laterality Date ??? PT DENIES RELEVANT SURGICAL HISTORY Family History Problem Relation Age of Onset ??? Family history unknown: Yes Social History Substance Use Topics ??? Smoking status: Never Smoker ??? Smokeless tobacco: Never Used ??? Alcohol use No ROS: Review of Systems - General ROS: negative for weight changes, fever Psychological ROS: negative for anxiety or depressive symptoms Endocrine ROS: negative for polyuria/polydipsia or new changes in weight Breast ROS: Negative Respiratory ROS: negative for cough, shortness of breath, or wheezing Cardiovascular ROS: negative for chest pain or dyspnea on exertion Gastrointestinal ROS: negative for reflux, abdominal pain, change in bowel habits, or black or bloody stools Genito-Urinary ROS: negative for dysuria, trouble voiding, or hematuria Musculoskeletal ROS: positive for - pain in back - right and buttock - right Neurological ROS: negative for TIA or stroke symptoms PE: General appearance: alert, in no distress Head: atraumatic, Normocephalic, without obvious abnormality Eyes: conjunctivae/corneas clear, Skin: Dry and intact Neck: supple, symmetrical, trachea midline, no adenopathy and thyroid: not enlarged, symmetric, no tenderness/mass/nodules Lumbar Spine: Palpable tenderness: right paralumbar and R piriformis. There is R piriformis trigger points identified Standing ROM: flexion 30 extension +10 Side bendin degrees on the right and 25 degrees on the left SLR ?? Right: positive ?? Left: negative SACROILIAC JOINT TESTS ZAINAB: ?? Right: positive ?? Left: negative PATRICKS: positive [place]: positive LE muscle strength: ?? Right: 5/5 except HS and EDB is 4+ ?? Left: 5/5 Deep Tendon Reflex: Achilles: Right 1/4 Left 1/4 Patellar: Right 1/4 Left 1/4 Sensation: Impaired Gait: She has decreased weight bearing on RLE Hamstring length: decreased 30 degrees in 90/90 position on the right, 10 on the left. Pulses: present 2+ and normal After careful explanation of the procedure that included but was not limited to; bleeding, infection, post injection pain and side effect of medication, patient elected to undergo injection. The areawas cleansed with alcohol. Patient received 3cc of 1% lidocaine without epinephrine in right, piriformis m. This was followed by heat and was tolerated well. ASSESSMENT Encounter Diagnoses Name Primary? Lumbar radiculopathy, right Yes ??? Herniated nucleus pulposus, L5-S1, right ??? Myofascial pain syndrome, ??? Piriformis syndrome of right side PLAN Orders Placed This Encounter ??? Generic Referral to Pain Management ??? Kassie Garduno MD ??? PT EVAL AND TREAT ??? [place] INJECT TRIGGER POINT, 1 OR 2 ??? tapentadol (NUCYNTA ER) 100 mg Extended Release 12 hour tablet ??? metaxalone (SKELAXIN) 800 mg tablet She has R L4-5 HNP with lumbar radiculopathy and mild weakness and she will undergo a second injection and referral for surgery if not improved. She also had some piriformis tightness and trigger points. She had trigger point injection FU: 2-3 weeks Meenu Rios MD documented in this encounter Miscellaneous Notes * Patient Instructions - Meenu Rios MD - 01/26/2017 10:[address] Kassie Garduno [phone] documented in this encounter Plan of Treatment Scheduled Referrals Name Type Priority Associated Diagnoses Order Schedule AMB REFERRAL TO PAIN CLINIC Outpatient Referral Routine Lumbar radiculopathy, right Herniated nucleus pulposus, L5-S1, right Ordered: 01/26/2017 AMB REFERRAL TO NEUROSURGERY Outpatient Referral Routine Lumbar radiculopathy, right Herniated nucleus pulposus, L5-S1, right Ordered: 01/26/2017 documented as of this encounter Visit Diagnoses Diagnosis Lumbar radiculopathy, right- Primary Herniated nucleus pulposus, L5-S1, right Displacement of lumbar intervertebral disc without myelopathy Myofascial pain syndrome, Mylagia and myositis, unspecified Piriformis syndrome of right side Lesion of sciatic nerve documented in this encounter Care Teams Visual Merchandising Coordinator Relationship Specialty Start Date End Date Tre Rodriguez MD PCP - General Family Practice 11/22/16 documented as of this encounter
--- OUTSIDE RECORDS SUMMARY | 2024-10-27 11:03 | XMS_ITS | Encounter Summary ---
Author Organization [facility] Address [address] [place] [address] Care Team Providers Care Brainer Name Role Phone Tre Rodriguez MD Primary Care Provider [phone] Encounter Details Date Type Department Care Team (Late st Contact Info) Description 09/05/2024 External Device Data [facility] ABSTRACTION Provider, Abstract [...] on filedocumented in this encounter Care Teams Brainer Relationship Specialty Start Date End Date Tre Rodriguez MD PCP - General Family Practice 11/22/16 documented as of this encounter
--- OUTSIDE RECORDS SUMMARY | 2024-10-27 11:03 | XMS_ITS | Encounter Summary ---
Author Organization [facility] Address [address] [place] [address] Care Team Providers Care Cotton Grower Name Role Phone Tre Rodriguez MD Primary Care Provider Encounter Details Date Type Department Care Team (Latest Contact Info) Description 02/22/2017 8:42 AM CDT - 02/22/2017 11:59 PM CDT Hospital Encounter [address] [place] [address] Kassie Garduno MD [address] [facility] [address] [place] [address] -x0 (Work) Discharge Disposition: Home or Self Care Social [...] Sign Reading Time Taken Comments Blood Pressure 123/87 02/22/2017 9:40 AM CDT Pulse 92 02/22/2017 9:40 AM CDT Temperature - - Respiratory Rate - - Oxygen Saturation 96% 02/22/2017 9:40 AM CDT Inhaled Oxygen Concentration - - Weight 63.6 kg (140 lb 4 oz) 02/22/2017 9:40 AM CDT Height 165.1 cm (5' 5 ) 02/22/2017 9:40 AM CDT Body Mass Index 23.34 02/22/2017 9:40 AM CDT documented in this encounter Medications at Time of Discharge Medication Sig Dispensed Refills Start Date End Date diazePAM (VALIUM) 5 mg tablet Take 1 Tablet (5 mg) by mouth 3 times daily as needed for Spasm or Discomfort. 60 Tablet 02/28/2017 HYDROcodone-acetamino phen (NORCO) 5-325 mg tablet Take 1-2 Tablets [...] ER) 100 mg Extended Release 12 hour tabletIndications:Lum bar radiculopathy, right,Herniated nucleus pulposus, L5-S1, right,Myofascial pain syndrome, cervical,Piriformis syndrome of right side Take 1 Tablet (100 mg) by mouth every 12 hours. Max Daily Amount: 200 mg 60 Tablet 01/26/2017 metaxalone (SKELAXIN) 800 mg tabletIndications:Lum bar radiculopathy, right,Herniated nucleus pulposus, L5-S1, right Take 1 Tablet (800 mg) by mouth 3 times daily. 60 Tablet 01/26/2017 02/23/2017 diazePAM (DIASTAT ACUDIAL) 10 mg Kit by See Admin Instructions route one time only. 02/28/2017 documented as of this encounter OR Notes * Anesthesia PAT Evaluation - Tonya Villafuerte FNP - 02/22/2017 9:54 AM CDT Pre-Procedure Anesthesiology Consultation and Evaluation (PACE) Service 02/22/2017 9:54 AM Name: Joselyn Amado Age: 56 y.o. Sex: female CSN: [id number] Procedure: Minimally invasive Right L5-S1 far lateral microdiskectomy No Known Allergies Current Outpatient Prescriptions Medication Sig Dispense Refill ??? venlafaxine (EFFEXOR) 75 mg tablet Take 75 mg by mouth daily at bedtime. ??? ibuprofen (MOTRIN) 400 mg tablet Take 400 mg by mouth every 6 hours as needed for Pain, Mild. ??? tapentadol (NUCYNTA ER) 100 mg Extended Release 12 hour tablet Take 1 Tablet (100 mg) by mouth every 12 hours. Max Daily Amount: 200 mg 60 Tablet 0 ??? metaxalone (SKELAXIN) 800 mg tablet Take 1 Tablet (800 mg) by mouth 3 times daily. 60 Tablet 0 ??? diazePAM (DIASTAT ACUDIAL) 10 mg Kit by See Admin Instructions route one time only. No current facility-administered medications for this encounter. Advised pt to take the following medications AM DOS:Nucynta, Skelaxin Advised pt to stop the following medications on :ASA/NSAIDs per surgeon There are no active problems to display for this patient. Past Medical History: Diagnosis Date ??? Depression son ??? Gallstones ??? Injury of back ??? Patient denies relevant medical history ??? TIA (transient ischemic attack) 2002 Past Surgical History: Procedure Laterality Date ??? HX CARPAL TUNNEL RELEASE 2011 right ??? HX TUBAL LIGATION 1985 ??? PT DENIES RELEVANT SURGICAL HISTORY Social History Substance Use Topics ??? Smoking status: Current Every Day Smoker Packs/day: 1.00 Years: 35.00 Types: Cigarettes ??? Smokeless tobacco: Never Used ??? Alcohol use Yes Comment: rare Family History Problem Relation Age of Onset ??? Family history unknown: Yes Previous Anesthesia Problems/Concerns: No anesthesia problems/complications History of PONV No Review of Systems Cardiovascular: negative. Denies cp or sob Respiratory: negative,Snoring - No, ED - No Gastrointestinal: negative. Genitourinary:negative. Musculoskeletal: positive for back pain Neurological: positive for h/o ?? TIA 2002- no residual, per pt stress related . Endocrine negative Hepatic negative Exercise tolerance able to go up 1-2 flight of stairs w/o cp Tobacco 1ppd PHYSICAL EXAM Visit Vitals ??? BP 123/87 ??? Pulse 92 ??? Ht 5' 5 (1.651 m) ??? Wt 63.6 kg (140 lb 4 oz) ??? LMP 02/22/2013 ??? SpO2 96% ??? BMI 23.34 kg/m2 Weight: Weight: 63.6 kg (140 lb 4 oz) (02/22/17 0940) Height: Ht Readings from Last 1 Encounters: 02/22/17 5' 5 (1.651 m) BMI: Body mass index is 23.34 kg/(m^2). General Appearance: Alert, oriented, no acute distress Airway: normal range of motion; Airway Class: II (soft palate, uvula, fauces visible); Special Considerations None Dentition: upper and lower dentures Lungs: clear to auscultation bilaterally, normal respiratory effort Heart: regular rate and rhythm, S1, S2 normal, no murmur, click, rub or gallop Neuro: alert, oriented x 3, no defects noted in general exam. Extremities: extremities normal, atraumatic, no cyanosis or edema LABS No results found for: WBC, MANUALWBC, HGB, HGBPOC, HCT, HCTPOC, PLT, MCV No results found for: NA, K, CL, CO2, CA, BUN, CREAT, GLUCOSE, ANIONGAP, BCRATIO No results found for: INR, PT, PROTIMEPOC No results found for: HCGURPOC, HCGQUALUR, HCGQUAL, HCGQUANT, HCGINTACT EKG: EKG not indicated today Other Studies/Considerations: None Risks/Alternatives discussed. Questions solicited and answered. Yes Postop pain management discussed yes Smoking/Tobacco Counselin-10 min Recommendations:None ATTESTATIONS (Not in a hospital admission) I obtained, updated or reviewed the patient's current medications including dosage, frequency, and route of administration. This information was obtained directly from the patient or support representative or caregiver or another available healthcare resource and updated in [facility] EMR. History Smoking Status ??? Current Every Day Smoker ??? Packs/day: 1.00 ??? Years: 35.00 ??? Types: Cigarettes Smokeless Tobacco ??? Never Used Patient screened for tobacco use and identified as a user. I counseled patient on tobacco cessationand provided the patient with materials to assist in cessation including ASA pamphlet Be Smoke-Freefor Surgery and a free counseling hotline number. REPORT AND NECESSARY FOLLOW-UP History and physical performed in [facility]; tests (ECG, blood work) reviewed. Abnormal Results Found: no Further Testing or Evaluation Required: no Final [facility] Review: May proceed with procedure/surgery: awaiting carotid study from [facility] Stop bang score is 2 RUBIO Montemayor 02-22-17 Addendum Carotid 2014 Normal study Final [facility] Review: May proceed with procedure/surgery: YES Tonya Villafuerte [facility] 02/22/2017 11:45 AM * Alessandra-OP - Alyce Joel RN - 02/22/2017 9:42 AM CDT Patient instructed to use the provided Chlorhexidine soap sponge(s) to clean the surgical site while in the shower the night before surgery and repeat same instructions the morning of surgery. Written detailed instructions reviewed with patient. Patient verbalized understanding of shower and soaps.Pt aware not to shave the surgical site.Patient instructed to stop taking vitamins and herbal supplements 7 days prior to scheduled surgery date. Patient also instructed to stop taking aspirin and NSAIDs (unless instructed otherwise by surgeon) 7 days prior to their scheduled surgery date. documented in this encounter Plan of Treatment Not on file documented as of this encounter Procedures Procedure Name Priority Date/Time Associated Diagnosis Comments VERIFICATION BLOOD GROUP Routine 02/22/2017 9:15 AM CDT CBC WITHOUT DIFFERENTIAL Routine 02/22/2017 9:15 AM CDT TYPE AND SCREEN Routine 02/22/2017 9:15 AM CDT documented in this encounter Results * VERIFICATION BLOOD GROUP (02/22/2017 9:15 AM CDT) ABO GROUP B 02/22/2017 7:35 PM CDT [facility] RH (D) TYPE Positive 02/22/2017 7:35 PM CDT [facility] Blood Venipuncture / Unknown 02/22/2017 9:15 AM CDT 02/22/2017 9:52 AM CDT Kassie Garduno MD BLOOD BANK ORDERABLE S [facility] -- [facility] CLIA# [id number] [address] [place] [address] * (ABNORMAL) CBC WITHOUT DIFFERENTIAL (02/22/2017 9:15 AM CDT) WBC 8.6 4.0 - 9.8 K/uL 02/22/2017 10:03 AM CDT [facility] RBC 5.30(H) 3.90 - 4.90 M/uL 02/22/2017 10:03 AM CDT [facility] HEMOGLOBIN 14.6 11.8 - 14.8 g/dL 02/22/2017 10:03 AM CDT [facility] HEMATOCRIT 42.2 35.5 - 44.0 % 02/22/2017 10:03 AM CDT [facility] MCV 79.6(L) 82.0 - 99.0 fL 02/22/2017 10:03 AM CDT [facility] MCH 27.5 27.2 - 32.6 pg 02/22/2017 10:03 AM CDT [facility] MCHC 34.6 31.5 - 35.5 g/dL 02/22/2017 10:03 AM CDT [facility] PLATELETS 258 140 - 350 K/uL 02/22/2017 10:03 AM CDT [facility] MPV 10.7 9.3 - 12.4 fL 02/22/2017 10:03 AM CDT [facility] RDW 13.3 11.5 - 14.5 % 02/22/2017 10:03 AM CDT [facility] RDW-STDEV 38.0 37.1 - 48.7 fL 02/22/2017 10:03 AM T [facility] Blood Venipuncture / Unknown 02/22/2017 9:15 AM CDT 02/22/2017 9:52 AM CDT Vijay Dash MD HEMATOLOGY ORDERABLE S [facility] CLIA# [id number] [address] [place] [address] * TYPE AND SCREEN (02/22/2017 9:15 AM CDT) ABO GROUP B 02/22/2017 6:37 PM CDT [facility] RH (D) TYPE Positive 02/22/2017 6:37 PM CDT [facility] ANTIBODY SCREEN Negative 02/22/2017 6:37 PM CDT [facility] Blood Venipuncture / Unknown 02/22/2017 9:15 AM CDT 02/22/2017 9:52 AM CDT Kassie Garduno MD BLOOD BANK ORDERABLE S [id number] [address] [place] [address] documented in this encounter Visit Diagnoses Not on filedocumented in this encounter Care Teams Cotton Grower Relationship Specialty Start Date End Date Tre Rodriguez MD PCP - General Family Practice 11/22/16 documented as of this encounter
--- OUTSIDE RECORDS SUMMARY | 2024-10-27 11:03 | XMS_ITS | Encounter Summary ---
Author Organization [facility] Address [address] [place] [address] Care Team Providers Care Gaming Worker Name Role Phone Tre Rodriguez MD Primary Care Provider [phone] Encounter Details Date Type Department Care Team [...] on filedocumented in this encounter Care Teams Gaming Worker Relationship Specialty Start Date End Date Tre Rodriguez MD PCP - General Family Practice 11/22/16 documented as of this encounter
--- OUTSIDE RECORDS SUMMARY | 2024-10-27 11:03 | XMS_ITS | Encounter Summary ---
Author Organization [facility] Address [address] [place] [address] Care Team Providers Care Life Scientist Name Role Phone Tre Rodriguez MD Primary Care Provider Reason for Visit * Reason Onset Date Comments Medication Question 01/14/2017 Encounter Details Date Type Department Care Team (Late st Contact Info) Description 01/14/2017 Telephone [facility] Orthopedic Surgery - [address] [address] Meenu Rios MD NO ADDRESS ON FILE Medication Question Social History Tobacco Use Types Packs/Day [...] Telephone Encounter - Meenu Rios MD - 01/17/2017 7:48 AM CDT Spoke with Joselyn and she states that she actually found a coupon that made the Nucynta only $35 which is doable. She states that it does seem to help and she is taking it every 6 hours. She is getting her selective nerve root block today with Dr. Burrows and has a follow-up appointment on 01/26. We also discussed the findings of the multiple uterine fibroids and told her that she needed to follow-up with her carbon setter regarding that. She will call if she has any further difficulties. * Telephone Encounter - Anika Segura RN - 01/14/2017 11:33 AM CST Patient left message. She is a patient of Dr. Cordero and was given a script for Nucynta for pain. She states there is no generic for it and it is too expensive. She is asking for something else for pain. Please call ar [phone]. [facility] [employer] NEEDS documented in this encounter Plan of Treatment Not on file documented as of this encounter Visit Diagnoses Not on filedocumented in this encounter Care Teams Life Scientist Relationship Specialty Start Date End Date Tre Rodriguez MD PCP - General Family Practice 11/22/16 documented as of this encounter
--- OUTSIDE RECORDS SUMMARY | 2024-10-27 11:03 | XMS_ITS | Encounter Summary ---
Author Organization [facility] Address [address] [place] [address] Care Team Providers Care Commodities Requirements Analyst Name Role Phone Tre Rodriguez MD Primary Care Provider [phone] Reason for Referral * Outpatient Services (Routine) - Closed Specialty Diagnoses / Procedures Referred By Contac t Referred To Contact Ultrasound Diagnoses Pelvic mass Procedures US PELVIS + TRANSVAG NON OB US PELVIS COMPLETE Meenu Rios MD NO ADDRESS ON FILE Referral ID Status Reason Start Date Expiration Date V isits Requested Visits Authorized [id number] Closed [facility] CTS 01/05/2017 02/05/2018 1 1 BALL INSPECTOR * Eval and Treat (5-7 Days) - Closed Specialty Diagnoses / Procedures Referred By Contac t Referred To Contact Diagnoses Lumbar radiculopathy, right Herniated nucleus pulposus, L5-S1, right Meenu Rios [place] [address] [place] [address] Referral ID Status Reason Start Date Expiration Date Visits Requested Visits Authorized [id number] Closed Ordering Department To Schedule 01/05/2017 01/05/2018 1 1 BALL INSPECTOR Reason for Visit * Reason Comments LOW BACK PAIN buldging disc for a couple of months. No injury. Encounter Details Date Type Department Care Team (Latest Contact Info) Description 01/05/2017 8:00 AM BASEBALL INSPECTOR Office Visit [facility] Physical Medicine and Rehabilitation - [facility] [address] [id number] Meenu Rios MD NO ADDRESS ON FILE Lumbar radiculopathy, right (Primary Dx); Herniated nucleus pulposus, L5-S1, right; Pelvic mass Social History Tobacco Use Types Packs/Day Years [...] Sign Reading Time Taken Comments Blood Pressure 96/65 01/05/2017 9:02 AM BASEBALL INSPECTOR Pulse 81 01/05/2017 9:02 AM BASEBALL INSPECTOR Temperature - - Respiratory Rate - - Oxygen Saturation - - Inhaled Oxygen Concentration - - Weight 63.5 kg (140 lb) 01/05/2017 9:02 AM BASEBALL INSPECTOR Height 165.1 cm (5' 5 ) 01/05/2017 9:02 AM BASEBALL INSPECTOR Body Mass Index 23.3 01/05/2017 9:02 AM BASEBALL INSPECTOR documented in this encounter Progress Notes * Meenu Rios MD - 01/05/2017 10:28 AM CST Joselyn Amado is a 56 y.o. female referred by Dr Tre Rodriguez HPI: Prior history of related problems: no Back Pain Patient presents for evaluation of low back problems. Symptoms have been present for 6 weeks and include pain in leg more than low back pain (aching, burning, stabbing, tingling in character; 10/10 in severity). Initial inciting event: rolled over in the bed. Exacerbating factors identifiable by patient are standing, sitting, walking, bending forwards, bending backwards. Alleviating factors identifiable by patient are none. Associated symptoms: There is R leg pain and numbness. Treatments so far initiated by patient: she went to the ED on Tuesday. She was given a Medrol dose pack and Tylenol #3. She had lumbar MRI on 12/28/16 and it shows a large HNP with far lateral component She is post menopausal and states that at [facility] about 4 yrs ago and there were uterinefibroids at that time. She also has known gallstones and they have wanted to take it out but I don't have time for that. No current outpatient prescriptions on file prior to visit. No current facility-administered medications on file prior to visit. No Known Allergies Past Medical History Diagnosis Date ??? Patient denies relevant medical history Past Surgical History Procedure Laterality Date ??? Pt denies relevant surgical history Family History Problem Relation Age of Onset [...] - pain in back - right and leg - right Neurological ROS: negative for TIA or stroke symptoms Physical Exam: Visit Vitals ??? BP 96/65 ??? Pulse 81 ??? Ht 5' 5 (1.651 m) ??? Wt 63.5 kg (140 lb) ??? No ??? BMI 23.3 kg/m2 General appearance: alert, in no distress Head: atraumatic, Normocephalic, without obvious abnormality Eyes: conjunctivae/corneas clear ENT: Intact Skin: Intact Lumbar Spine: Palpable tenderness: bilateral paralumbar Standing ROM: flexion 60 extension +20 Side bending 25 on right and 20 on left. SLR ?? Right: positive ?? Left: negative ZAINAB: ?? Right: negative ?? Left: negative LE muscle strength: ?? Right: 5/5 ?? Left: 5/5 Deep Tendon Reflex: Achilles: Right 0/4 Left 1/4 Patellar: Right 2/4 Left 2/4 Sensation: Intact Gait: patient cannot rise without assistance and is flexed at the waist Pulses: present 2+ and normal ASSESSMENT Encounter Diagnoses Name Primary? Lumbar radiculopathy, right Yes ??? Herniated nucleus pulposus, L5-S1, right ??? Pelvic mass PLAN Orders Placed This Encounter ??? US PELVIS COMPLETE ??? Generic Referral to Pain Management ??? tapentadol (NUCYNTA) 50 mg tablet US of pelvis for ?fibroids and she will bring old report for comparison. She has significant lumbarradiculopathy but does not want to see a surgeon yet. She will undergo SNRB/CAPRI and FU in 2-3 weeksor sooner if she gets weakness or no improvement of pain. She was given an excuse to be off work. BALL INSPECTOR * Emi Alonzo - 01/05/2017 9:06 AM CST Date of Injury: No Detailed Description of how patient was injured: Place injury occurred: Is this patient on hospice care? no Does this patient reside in a custodial? no If yes; which one: BALL INSPECTOR documented in this encounter Plan of Treatment Scheduled Referrals Name Type Priority Associated Diagnoses Orde r Schedule AMB REFERRAL TO PAIN CLINIC Outpatient Referral Routine Lumbar radiculopathy, right Herniated nucleus pulposus, L5-S1, right Ordered: 01/05/2017 documented as of this encounter Results * US PELVIS + TRANSVAG NON OB (01/12/2017 10:40 AM BASEBALL INSPECTOR) Anatomical Region Laterality Modality Pelvis Ultrasound 01/12/2017 10:4 4 AM BASEBALL INSPECTOR Impressions 01/12/2017 2:28 PM BASEBALL INSPECTOR IMPRESSION: Multiple uterine fibroids. DICTATION LOCATION: Location [address] [place] [address] Narrative 01/12/2017 2:28 PM BASEBALL INSPECTOR US PELVIS + TRANSVAGINAL NON OB DATE: [...] IMPRESSION IMPRESSION: Multiple uterine fibroids. DICTATION LOCATION: Location - [facility] Meenu Rios MD US ORDERABLES documented in this encounter Visit Diagnoses Diagnosis Lumbar radiculopathy, right- Primary Herniated nucleus pulposus, L5-S1, right Displacement of lumbar intervertebral disc without myelopathy Pelvic mass Abdominal or pelvic swelling, mass or lump, unspecified site Pelvic mass Abdominal or pelvic swelling, mass or lump, unspecified site documented in this encounter Care Teams Commodities Requirements Analyst Relationship Specialty Start Date End Date Tre Rodriguez MD PCP - General Family Practice 11/22/16 documented as of this encounter
--- OUTSIDE RECORDS SUMMARY | 2024-10-27 11:03 | XMS_ITS | Encounter Summary ---
Author Organization [facility] Address [address] [address] Care Team Providers Care Dental Front Office Assistant Name Role Phone Unavailable Primary Care Provider Unavailabl e Encounter Details Date Type Department Care Team (Latest Contact Info) Description 05/18/2024 Travel Social History Tobacco Use Types Packs/Day Years Used Date Smoking Tobacco: Never Assessed Overall Financial Resource Strain (CARDIA) [place] r [...] as of this encounter Plan of Treatment Upcoming Encounters Date Type Department Care Team (Late st Contact Info) Description 11/28/2024 10:00 AM INSURANCE LEGAL ASSISTANT Office Visit [facility] - Neurology [address], [facility] [place] [id number] Nickolas Barboza MD [address] [place] [address] documented as of this encounter Visit Diagnoses Not on filedocumented in this encounter
--- OUTSIDE RECORDS SUMMARY | 2024-10-27 11:03 | XMS_ITS | Encounter Summary ---
Author Organization [facility] Address [address] [place] [address] Care Team Providers Care Adoption Services Manager Name Role Phone Tre Rodriguez MD Primary Care Provider [phone] Encounter Details Date Type Department Care Team (Late st Contact Info) Description 12/03/2023 External Device Data [facility] ABSTRACTION Provider, Abstract [...] on filedocumented in this encounter Care Teams Adoption Services Manager Relationship Specialty Start Date End Date Tre Rodriguez MD PCP - General Family Practice 11/22/16 documented as of this encounter
--- OUTSIDE RECORDS SUMMARY | 2024-10-27 11:03 | XMS_ITS | Encounter Summary ---
Author Organization [facility] Address [address] [place] [address] Care Team Providers Care Hospice Manager Name Role Phone Tre Rodriguez MD Primary Care Provider [phone] Encounter Details Date Type Department Care Team (Late st Contact Info) Description 06/26/2024 External Device Data [facility] ABSTRACTION Provider, Abstract [...] on filedocumented in this encounter Care Teams Hospice Manager Relationship Specialty Start Date End Date Tre Rodriguez MD PCP - General Family Practice 11/22/16 documented as of this encounter
--- OUTSIDE RECORDS SUMMARY | 2024-10-27 11:03 | XMS_ITS | Encounter Summary ---
Author Organization [facility] Address [address] [place] [address] Care Team Providers Care Social Service Liaison Name Role Phone Tre Rodriguez MD Primary Care Provider [phone] Reason for Visit * Auth/Cert Specialty Diagnoses / Procedures Referred By Naye t Referred To Contact General Surgery Diagnoses LUMBOSACRAL HNP Procedures HEMILAMINECTOMY MINIMALLY INVASIVE [facility] [address] [place] [address] Referral ID Status Reason Start Date Expiration Date Visits Re quested Visits Authorized [id number] 1 1 Encounter Details Date Type Department Care Team (Latest Contact Info) Description 02/28/2017 11:47 AM CDT - 03/01/2017 9:26 AM CDT Hospital Encounter [facility] [place] [address] [place] [address] Kassie Garduno MD [address] [address] -x0 (Work) Herniated nucleus pulposus, lumbar Discharge Disposition: Home or Self Care Social [...] Sign Reading Time Taken Comments Blood Pressure 105/54 03/01/2017 7:32 AM CDT Pulse 65 03/01/2017 7:32 AM CDT Temperature 36.7 ??C (98 ??F) 03/01/2017 7:32 AM CDT Respiratory Rate 12 03/01/2017 3:58 AM CDT Oxygen Saturation 96% 03/01/2017 7:32 AM CDT Inhaled Oxygen Concentration - - Weight 62.7 kg (138 lb 3.2 oz) 02/28/2017 12:25 PM CDT Height - - Body Mass Index 23 02/22/2017 9:40 AM CDT documented in this encounter Discharge Instructions * Discharge Instructions* Gayle Greenwood PA - 02/28/2017 2:28 PM CDT Thank you for choosing [facility] for your care! The following is a [...] out. Medications will NOT be refilled by ???[facility]?? providers after hours! > Many pain medications [...] approves. Any attempts to do so will result in refusal to prescribe any further pain medications [...] side Pulse: 65 84 81 65 Resp: Temp: 98.2 ??F (36.8 ??C) 98.4 ??F [...] to home today. Gayle Greenwood PA-C Pgr: [phone] * Tonya Wilkes RN - 03/01/2017 5:27 [...] Greenwood PA - 02/28/2017 5:25 PM CDT [place], [place] [address] Neurosurgery Brief Operative Note Joselyn Amado 1960 [id number] Today's Date: 02/28/2017 Pre-op Dx: far lateral [...] Garduno MD - 03/01/2017 12:11 AM CDT [place], [place] [address] Operative Report CSN: [id number] DATE OF SERVICE: 02/28/2017 SURGEON Kassie Garduno MD PREOPERATIVE DIAGNOSIS Far-lateral right-sided L5-S1 disk herniation. POSTOPERATIVE DIAGNOSIS Far-lateral right-sided L5-S1 disk herniation. OPERATION NAME 1. Far-lateral L5-S1 right-sided microdiskectomy. 2. Intraoperative microscope use. ANESTHESIA heel breaster Romulo Prakash, who participated in both the [...] down through the fascia. A series of OunerRx system dilators were then introduced over the [...] and needle counts were correct. TQ:MEDQ DID: [id number] Dictated by: Kassie Garduno MD documented in [...] pain/comfort utilizing verbal/nonverbal pain scales; assess culturalor judaism indicators attached to pain; administer pain medications [...] surgical site * Care Plan - Radha Chavez RN - 02/28/2017 12:28 PM CDT Knowledge deficit [...] PM CDT LUMBOSACRAL HNP Case Notes [facility]--PP--CPT [id number], [id number] POC , URINE Routine 02/28/2017 12:43 PM [...] performance of L5-S1 microdiscectomy. DICTATION LOCATION: Location [address] [place] [address] Narrative 02/28/2017 5:14 PM CDT EXAM: C-ARM FLUOROSCOPY DATE: 02/28/2017 5:09 PM HISTORY: Cough,Pain. ?. FLUOROSCOPY ??Time: 0.3 minutes ??Dose: Not recorded Procedure Note Placido Christopher MD - 02/28/2017 EXAM: C-ARM FLUOROSCOPY DATE: 02/28/2017 5:09 PM HISTORY: Cough,Pain. . FLUOROSCOPY Time: 0.3 minutes Dose: Not recorded IMPRESSION IMPRESSION: C-arm fluoroscopy and spot films were provided for performance of L5-S1 microdiscectomy. DICTATION LOCATION: Location [address] [place] [address] Kassie Garduno MD DIAGNOSTIC IMAGING O RDERABLES * POC , URINE (02/28/2017 12:43 PM CDT) HCG QUAL URINE Negative Negative 02/28/2017 2:15 PM CDT [facility] Urine 02/28/2017 12:4 3 PM CDT 02/28/2017 2:15 PM CDT Kassie Garduno MD POINT OF CARE TESTIN G [facility]# [id number] [address] [place] [address] * VERIFICATION BLOOD GROUP (02/28/2017 12:29 PM CDT) ABO GROUP B 02/28/2017 1:32 PM CDT [facility] RH (D) TYPE Positive 02/28/2017 1:32 PM CDT [facility] Blood Venipuncture / Unknown 02/28/2017 12:29 PM CDT 02/28/2017 1:05 PM CDT Laney Dolan MD BLOOD BANK [facility] [employer] [facility]# [id number] [address] [place] [address] documented in this encounter Visit Diagnoses Diagnosis Herniated nucleus pulposus, lumbar- Primary Displacement of lumbar intervertebral disc without myelopathy Cough Herniated nucleus pulposus, lumbar Displacement of lumbar intervertebral disc without myelopathy Tobacco use Tobacco use disorder Cigarette dependence Tobacco use disorder documented in this encounter Administered Medications Inactive Administered Medications - up to 3 most recent administrations Medication Order MAR Action Action Date Dose Rate Site diazePAM (VALIUM) tablet 5 mg 5 [...] 12:54 PM CDT 0.3 mL Arm, Left MORPHINE 10 MG/ML INJECTION SO 1 dose, Starting on Tue02/28/17 at 1305, Until Tue02/28/17 at 1307, Kathy METCALF: cabinet override Given 02/28/2017 1:07 PM CDT 2 mg documented in this encounter Active and Recently [...] Routine, PACU 1730 (Given - Provider: Gayle Mendoza RN)1734 (Given - Provider: Gayle Mendoza RN)1752 (Given - Provider: Gayle Mendoza RN)1758 (Given - Provider: Gayle Mendoza RN) methylPREDNISolone [...] cabinet override 1307 (Given - Provider: Rakel Chavez, DEANN) documented in this encounter Care Teams Social Service Liaison Relationship Specialty Start Date End Date Tre Rodriguez MD PCP - General Family Practice 11/22/16 documented as of this encounter
--- OUTSIDE RECORDS SUMMARY | 2024-10-27 11:03 | XMS_ITS | Encounter Summary ---
Author Organization [facility] Address [address] [place] [address] Care Team Providers Care Director Life Name Role Phone Tre Rodriguez MD Primary Care Provider [phone] Encounter Details Date Type Department Care Team (Late st Contact Info) Description 06/27/2024 External Device Data [facility] ABSTRACTION Provider, Abstract [...] on filedocumented in this encounter Care Teams Director Life Relationship Specialty Start Date End Date Tre Rodriguez MD PCP - General Family Practice 11/22/16 documented as of this encounter
--- OUTSIDE RECORDS SUMMARY | 2024-10-27 11:03 | XMS_ITS | Encounter Summary ---
Author Organization [facility] Address [address] [place] [address] Care Team Providers Care Faucets Assembler Name Role Phone Tre Rodriguez MD Primary Care Provider [phone] Encounter Details Date Type Department Care Team (Late st Contact Info) Description 05/08/2024 External Device Data [facility] ABSTRACTION Provider, Abstract [...] on filedocumented in this encounter Care Teams Faucets Assembler Relationship Specialty Start Date End Date Tre Rodriguez MD PCP - General Family Practice 11/22/16 documented as of this encounter
--- OUTSIDE RECORDS SUMMARY | 2024-10-27 11:03 | XMS_ITS | Encounter Summary ---
Author Organization [facility] Address [address] [place] [address] Care Team Providers Care Architectural Examiner Name Role Phone Unavailable Primary Care Provider Unavailabl e Reason for Referral * (Routine) - Pending Review Specialty Diagnoses / Procedures Referred By Naye alanis Referred To Contact Procedures Follow up with provider Yo Mcdonald DO [address] [place] [address] Referral ID Status Reason Start Date Expiration Date V isits Requested Visits Authorized [id number] Pending Review 05/20/2024 05/20/2025 1 1 Reason for Visit * Reason Comments Syncope Patient brought in v ia EMSA for a syncopal episode. No fall, no Loc, no blood thinners. * Auth/Cert (Routine) Specialty Diagnoses / Procedures Referred By Naye alanis Referred To Contact Referral ID Status Reason Start Date Expiration Date Visits Re quested Visits Authorized [id number] 1 1 Encounter Details Date Type Department Care Team (Late st Contact Info) Description 05/18/2024 11:52 PM CDT - 05/20/2024 1:35 PM CDT Emergency [facility] [address] [place] [address] Dory Hernandez DO [address] [place] [id number] Yo Cortes MD [address] [place] [address] Dana Mckenzie MD [address] [place] [address] Yo Mcdonald DO [address] [place] [address] Hospitalist Discharge Disposition: Home or Self Care Social [...] Index - - documented in this encounter Functional Status Functional Status Response Date of Assess ment Is person deaf or have serious hearing difficult y? No 05/19/2024 Is person blind or have serious difficulty seein g? No 05/19/2024 Does person have serious dif ficulty walking/climbing stairs? No 05/19/2024 Does person have difficulty dressing/bathing? No 05/19/2024 Does person have difficulty doing errands alone? No 05/19/2024 Cognitive Status Response Date of Assessm ent Does person have difficulty concentrating/remembering/making decisions? No 05/19/2024 documented as of this encounter Discharge Summaries * Yo Mcdonald, - 05/20/2024 11:35 AM CDT Physician Discharge Summary Patient Name: Joselyn West Date of : 1960 Admit date: 05/18/2024 Discharge date: 05/20/2024 Admitting Physician: Dana Mckenzie MD Attending Physician: Yo Mcdonald D.O. Discharge Physician: Yo Mcdonald D.O. Admission Diagnosis: Syncope and collapse Primary hypertension Pyuria Volume depletion Past Medical History Past Medical History: Diagnosis Date HTN (hypertension) Mixed hyperlipidemia Discharge Diagnoses Syncope and collapse Primary hypertension UTI Volume depletion Diagnostic Studies See Hospital Course Procedures See Hospital Course Consults None Hospital Course HPI: Joselyn West is a 63 year old female with history of HTN and high cholesterol presented to critical access hospital after passing out at a [employer] yesterday. She was mildly nauseated and light-headed prior to this. She states she wasn't drinking any alcohol and there are no other sick contacts.She denied chest pain or palpitations, no seizure activity. No f/c. Currently, she's resting fine. She's from the [facility] and family is concerned about her going home to soon. Patient presents to the ED where, upon ED provider's diagnosis and discretion, the Hospitalist service was asked for admission for further evaluation and workup. Hospital course: Pt was hydrated and started on IVF. Here troponins normalized and ECHO was reviewed and pt was not felt to having had any significant stress on the heart. Antbx were initiated as it was felt that her UA was weakly + for early UTI. Pt was w/o complications during hospital course. EKG and telemetry was WNL and pt improved. On the morning of the , patient was examined and found to be awake, alert, oriented, in no apparent distress. Lungs were clear to ausculation, heart was normal rate and regular rhythm, abdomen soft, non-tender, with normal bowel sounds, with no lower extremity edema. Orthostatics were weakly + and pt's BP med (losartan) was held until f/u with PCP. Pt was deemed stable for discharge and I spoke with her daughter regarding pt's clearance for DC. All discharge questions were answered and patient was instructed regarding their diagnosis, hospital course, expected course of recovery, discharge medications and discharge plans. Patient was also instructed to follow up with their Primary Care provider regarding this hospitalization and ongoing chronic issues and to call their PCP or to return to ED with any recurrence or worsening of symptoms. Condition at discharge: good Disposition: Home with dtr. Code Status At Discharge Full Code Patient Instructions Medication List START taking these medications acetaminophen 325 MG tablet Commonly known as: Tylenol Take 2 (two) tablets by mouth every 6 hours as needed Maximum allowable Acetaminophen amount = 4 Grams (4000 mg) / 24 hours. cephalexin 500 MG capsule Commonly known as: Keflex Take 1 (one) capsule by mouth 3 times daily for 3 days Starting 05/21 Start taking on: May 21, 2024 Where to Get Your Medications These medications were sent to [facility] #[id number] - [address] [address] [facility] [address] [address] cephalexin 500 MG capsule You can get these medications from any pharmacy You don't need a prescription for these medications acetaminophen 325 MG tablet Discharge Procedure Orders Why you were hospitalized Order Specific Question Answer Comments Your discharge diagnosis is: Syncope [] Cardiac (heart-healthy) diet -- as tolerated heart healthy diet Activity as tolerated Rest today, and increase your activity level tomorrow as tolerated. Follow up with provider -pt to f/u with PCP this week upon her return to [place] and to follow BP Order Specific Question Answer Comments Follow Up Instructions for Patient: Within 5 Days from Discharge Special instructions -Call PCP with any questions or concerns -F/U with PCP as needed regarding this hospitalization and/or continuity of care for your medical needs. -Return to ED as needed. -Thank you for allowing myself and [facility] to participate in your patient care. --Dr Mcdonald Discharge time: greater than 30 minutes. Discharge time: Greater than 50% of time spent educating patient/family regarding diagnosis, prognosis, expected course of recovery, discharge medications, and discharge plans. Yo Mcdonald DO Attending Hospitalist Internal Medicine CC: No primary care provider on file. No primary physician on file. Phone: None Fax: None documented in this encounter Medications at Time of Discharge Medication Sig Dispensed Refills Start Date End Date acetaminophen (Tylenol) 325 MG tablet Take 2 (two) tablets by mouth every 6 hours as needed Maximum allowable Acetaminophen amount = 4 Grams (4000 mg) / 24 hours. 05/20/2024 cephalexin (Keflex) 500 MG capsule Take 1 (one) capsule by mouth 3 times daily for 3 days Starting 05/21 9 capsule 05/21/2024 05/24/2024 documented as of this encounter Progress Notes * Alla Gutierrez RN - 05/20/2024 1:32 PM CDT Provided education to patient about setting up MyChart, medications, pharmacy to olive picker, and follow up with PCP. Patient states she is going home to [facility] and she has a leach runner there with a follow up appointment scheduled already. Patient was Dc'd with all personal belongings by wheelchair to awaiting car going to daughter's house. * Alla Gutierrez RN - 05/20/2024 10:41 AM CDT Problem: Fall Risk Goal: Fall risk and fall related injury risk are minimized (interventions related to the fall risk can be found in the flowsheet documentation) 05/20/2024 1041 by Alla Gutierrez RN Outcome: Adequate for Discharge 05/20/2024 1041 by Alla Gutierrez RN Outcome: Adequate for Discharge Problem: Pain/Discomfort Goal: Patient exhibits reduced pain/discomfort as evidenced by pain scores 05/20/2024 1041 by Alla Gutierrez RN Outcome: Adequate for Discharge 05/20/2024 1041 by Alla Gutierrez RN Outcome: Adequate for Discharge Goal: Patient uses pharmacological and non-pharmacological pain management strategies. 05/20/2024 1041 by Alla Gutierrez RN Outcome: Adequate for Discharge 05/20/2024 1041 by Alla Gutierrez RN Outcome: Adequate for Discharge Goal: Patient verbalizes acceptable level of pain relief and ability to engage in desired activity. 05/20/2024 1041 by Alla Gutierrez RN Outcome: Adequate for Discharge 05/20/2024 1041 by Alla Gutierrez RN Outcome: Adequate for Discharge * Shaggy Carney RN - 05/19/2024 7:21 PM CDT END OF SHIFT SUMMARY Issues/Changes: pt admitted this morning around 6am. Pt's family stating pt using O2 2L as needed in home. Pt been 93-97% RA. Troponin was 19 (0226) >3 (0641) >7(1010) and daughter is trying tofigure out why the result is fluctuating. Also requested 's phone call. Attending aware of request oh phone call to daughter. SB when sleep. Patient or Family Concerns: daughter also questioning reason of syncope, and plans from Pain Issues: none. Cardiac Rhythm: SR/SB per Review of Utility Bagger saved Events and alarms from 0500 to 1700. Patient Progress: care continues. * Hawa Pryor RN - 05/19/2024 11:08 AM CDT Care Coordination Initial Assessment Anticipated Discharge Date: 05/22/24 Transportation at Discharge: Family Anticipated level of care at discharge: Home Anticipated level of care provider: None Prior to admission level of care: Home Prior to admit provider: None Plans: No discharge needs identified at this time. Consult Case Management if discharge planning needs arise. Comments: CM met with pt @ bedside. Pt lives @ home in [place], [place], and lives with her grandchildren.Pt's daughter, Garo, is her POA and pt has an advance directive. No copy is available. Pt doesnot utilize any DME, and doesn't have any HH. Pt feels safe @ home and does not have any problems buying food or medications. Daughter will provide transportation @ discharge. Lives with: Other (Comment) (grandchildren) Physical Limitations: None Requires Assistance With: None Preferred Pharmacy: [facility] [address] [facility] - [address] [facility] [phone] [address] [place] [address] Advance Directive: Yes, has Advance Directive Type of Directive: Durable Power of Lettuce Trimmer for Healthcare;Living Will (Declaration) Would you like assistance on completing and executing or revising an Advance Directive?: No READMISSION RISK SCORE is N/A at 11:08 AM 05/19/2024. Met with patient Family Support (name and phone): Extended Emergency Contact Information Primary Emergency Contact: SNEHAADELSOBEA Mobile Relation: Daughter Secondary Emergency Contact: DARRIN MARTIN Mobile Relation: Grandchild Patient or sales service representative requests care coordination reach out to family or caregiver listed above regarding discharge planning and at time of discharge? Yes Patient/Family provided with list of resources? 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 For any questions or needs please contact: Check Out Clerk Name/Phone number: Hawa Pryor RN documented in this encounter H&P Notes * Yo Mcdonald, DO - 05/19/2024 10:08 AM CDT History and Physical Patient: Joselyn West : 1960 Today's Date: 05/19/2024 Admit Date: 05/18/2024 11:52 PM Patient's Primary Care Physician: No primary care provider on file. Code Status: Full Assessment and Plan: 1. Syncope and collapse -will follow troponins and keep on tele -ECHO ordered -check UA -BID orthostatis -continue with IVF and supportive care -follow 2. HTN -hold home losartan for now -Hydralazine prn for SBP>180 and/or DBP>90 DVT Prophylaxis Lovenox Disp: Due to the active medical issues outlined above, the patient will need to remain in the hospital for ongoing care. Chief Complaint Patient presents with Syncope Patient brought in via EMSA for a syncopal episode. No fall, no Loc, no blood thinners. 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 She was mildly nauseated and light-headed prior to this. She states she wasn't drinking any alcohol and there are no other sick contacts.She denied chest pain or palpitations, no seizure activity. No f/c. Currently, she's resting fine. She's from the [facility] and family is concerned about her going home to soon. Patient presents to the ED where, upon ED provider's diagnosis and discretion, the Hospitalist service was asked for admission for further evaluation and workup. Data Temp: [97.6 ??F (36.4 ??C)-98.1 ??F (36.7 ??C)] Pulse: [60-71] Resp: [16-19] BP: (98-146)/(70-98) SpO2: [90 %-100 %] No intake or output data in the 24 hours ending 05/19/24 0000 Past History: Past Medical History: Diagnosis Date HTN (hypertension) Mixed hyperlipidemia Past Surgical History: Procedure Laterality Date Cholecystectomy SHOULDER ARTHROPLASTY, PARTIAL No medications prior to admission. No Known Allergies Social History Tobacco Use Smoking status: Former Types: Cigarettes Smokeless tobacco: Not on file Substance Use Topics Alcohol use: Not on file Family History Problem Relation Name Age of Onset Diabetes - Type 2 Mother CAD (Coronary Artery Disease) Father Review of Systems (bold is positive): GEN: malaise, unintentional weight loss, unintentional weight gain, fever or chills EYES: blurry vision, double vision, visual loss, or visual hallucinations ENT: sore throat, runny nose, or congestion RESP: cough, hemoptysis, resp distress, shortness of breath CVS: palpitations, chest pain, and chest pressure : dysuria, hematuria, incontinence, or abnormal frequency CRISTAL: pain, nausea/vomiting, gas, constipation, diarrhea. Denies melena, hematochezia and hematemesis SKIN: rashes, recent trauma or non-healing sores HEME: history of bleeding problems or bruising easily PSYCH: anxiety/depression, hallucinations, suicidal ideations NEURO: seizures, dizziness, or headaches syncopal episode EXT: joint pain, extremity pain, swelling MEDICATIONS FOR CURRENT ENCOUNTER: SCHEDULED MEDICATIONS: 0.9% NaCl injection 3 mL, Intracatheter, q8h aspirin chew tablet 81 mg, Oral, QDAY enoxaparin (Lovenox) injection 40 mg, Subcutaneous, QDAY ondansetron (Zofran) injection 4 mg, Intravenous, Once [COMPLETED] aspirin chew tablet 324 mg, Oral, Now [COMPLETED] ondansetron (disintegrating) (Zofran ODT) tablet 4 mg, Oral, Once CONTINUOUS MEDICATIONS: 0.9% NaCl with potassium chloride 20 mEq in 1000 mL premix infusion, Intravenous, Continuous PRN MEDICATIONS: Or 0.9% NaCl injection 1-10 mL, Intracatheter, PRN acetaminophen (Tylenol) tablet 650 mg, Oral, q6h PRN ecsjvcag-afrigimuv-bedimeqagiu (Maalox; Mylanta) suspension 20 mL, Oral, q6h PRN bisacodyl (Dulcolax) suppository 10 mg, Rectal, Once PRN bisacodyl EC (Dulcolax) tablet 5 mg, Oral, Once PRN melatonin tablet 3 mg, Oral, AT BEDTIME PRN - MR X 1 ondansetron (disintegrating) (Zofran ODT) tablet 4 mg, Oral, q6h PRN ondansetron (Zofran) injection 4 mg, Intravenous, q6h PRN polyethylene glycol 3350 (Miralax) packet 17 g, Oral, QDAY PRN Exam Constitutional BP 126/90 Pulse 60 Temp 97.8 ??F (36.6 ??C) (Temporal) Resp 16 SpO2 99% GEN: pleasant 63yo BF NAD, AOx3, no resp distress Obeys commands and answers questions. Appears non-toxic. Pleasant and cooperative HEENT: AT/NC, PERRLA, BM pink and moist, good dentition NECK: supple w/o Lymphadenopathy, Good ROM. No thyromegaly CV: RRR w/o r/c/m, no carotid bruits, pulses palpable in both upper and lower ext PULM: Lungs CTA b/l w/o w/r/r, normal expansion with inh/exh, chest wall is non- tender to palpation ABD: soft, non-tender, non-distended. No ascites. No rebounding or guarding. BS + EXT: Good active ROM, no joint swelling, no clubbing or cyanosis. No sig b/l lower ext edema SKIN: no mottling. No petechiae, purpura. No lesions, ulcerations, rashes Normal turgor NEURO: CN 2-12 intact, Normal affect, no resting tremors Labs: Recent Labs Component Name 05/19/24 0121 WBC 10.2 HGB 12.3 HCT 36.1 PLTCOUNT 216 Recent Labs Component Name 05/19/24 0122 SODIUM 143 POTASSIUM 3.7 CHLORIDE 110* CO2 23 BUN 20* CREATININE 1.02 GLUCOSE 106* CALCIUM 8.8 EGFR >60 No results for input(s): MAGMGDL in the last 07688 hours. No results for input(s): PHOS in the last 11359 hours. No results for input(s): INR in the last 21697 hours. No results for input(s): TROPONIN in the last 23577 hours. No results for input(s): COLORUA , CLARITYUA , SPECGRAVUA , PHUA , PROTEINUA , BLOODUA , LEUKOCYTEUA , NITRITEUA , GLUCOSEUA , KETONEUA , BILIRUBINUA , UROBILINUA , REDSUBUA , WBCUA , RBCUA , EPITHUA , MUCUSUA , BACTUA , YEASTUA , TRICHUA in the last 65407 hours. CXR: I have reviewed the film and agree with the findings reported in the formal report EKG: I have reviewed the EKG and agree with the findings reported CT: IMPRESSION No acute hemorrhage, hydrocephalus, or mass effect. Yo Mcdonald DO Attending Hospitalist Dept. of Internal Medicine CC: No primary care provider on file. No primary physician on file. Phone: None Fax: None documented in this encounter ED Notes * Elizabet Cardozo RN - 05/19/2024 5:19 AM CDT Transport here taking patient to main. * Elizabet Cardozo RN - 05/19/2024 4:12 AM CDT Family made aware of bed number for [facility]. * Elizabet Cardozo RN - 05/19/2024 4:04 AM CDT Report given to DEANN Montalvo. Transport @ 0404 * Elizabet Cardozo RN - 05/19/2024 1:30 AM CDT Patient going to CT * Elizabet Cardozo RN - 05/19/2024 12:41 AM CDT Family at bedside. * Dory Hernandez DO - 05/19/2024 12:15 AM CDTAssociated Order(s): EKG 12-LEAD Pre-Procedure Diagnose(s): Syncope and collapse Post-Procedure Diagnose(s): Syncope and collapse Joselyn West [id number] ER AT [facility] History Chief Complaint Patient presents with Syncope Patient brought in via EMSA for a syncopal episode. No fall, no Loc, no blood thinners. This is a 63-year-old female with history of hypertension who presents to the emergency department via EMS with the complaint of syncope. Here with daughter and granddaughter who helps provide history. Patient was with family celebrating family birthday. Patient went outside, complaint of nausea, witnessed to start slumping over, family members helped like her to the ground. She did lose consciousness. She did not hit her head or sustain any injury. They deny history of similar symptoms. Patient denies chest pain or shortness of breath. She started complaining of a headache after arrival to the ED. No past medical history on file. No past surgical history on file. No family history on file. Social History Socioeconomic History Marital status: Single Spouse name: Not on file Number of children: Not on file Years of education: Not on file Highest education level: Not on file Occupational History Not on file Tobacco Use Smoking status: Not on file Smokeless tobacco: Not on file Substance and Sexual Activity Alcohol use: Not on file Drug use: Not on file Sexual activity: Not on file Other Topics Concern Not on file Social History Narrative Not on file Social Determinants of Health Financial Resource Strain: Not on file Food Insecurity: Not on file Transportation Needs: Not on file Stress: Not on file Housing Stability: Not on file Review of Systems Review of Systems Constitutional: Negative for fever. Respiratory: Negative for cough and shortness of breath. Cardiovascular: Negative for chest pain and palpitations. Gastrointestinal: Positive for nausea. Negative for abdominal pain and vomiting. Genitourinary: Negative. Musculoskeletal: Negative for back pain. Skin: Negative for rash. Neurological: Positive for loss of consciousness and headaches. Negative for focal weakness and seizures. Psychiatric/Behavioral: Negative. All other systems reviewed and are negative. Physical Exam BP 102/82 Pulse 63 Temp 98.1 ??F (36.7 ??C) (Oral) Resp 18 SpO2 95% Physical Exam Vitals and nursing note reviewed. Constitutional: General: She is not in acute distress. Appearance: She is well-developed. HENT: Head: Normocephalic and atraumatic. Eyes: Extraocular Movements: Extraocular movements intact. Pupils: Pupils are equal, round, and reactive to light. Cardiovascular: Rate and Rhythm: Normal rate and regular rhythm. Heart sounds: No murmur heard. Pulmonary: Effort: Pulmonary effort is normal. No respiratory distress. Breath sounds: Normal breath sounds. Abdominal: General: There is no distension. Palpations: Abdomen is soft. Tenderness: There is no abdominal tenderness. Musculoskeletal: General: No deformity. Normal range of motion. Cervical back: Normal range of motion and neck supple. Skin: General: Skin is warm and dry. Findings: No rash. Neurological: General: No focal deficit present. Mental Status: She is alert and oriented to person, place, and time. Motor: Motor function is intact. Medications No current outpatient medications on file. Procedures EKG 12-LEAD Date/Time: 05/19/2024 12:15 AM Performed by: Dory Hernandez DO Authorized by: Dory Hernandez DO ECG interpreted by ED Physician in the absence of a leach runner: yes Interpretation: Interpretation: non-specific Rate: ECG rate: 66 ECG rate assessment: normal Rhythm: Rhythm: sinus rhythm Ectopy: Ectopy: none Conduction: Conduction: normal ST segments: ST segments: Normal T waves: T waves: normal Other findings: Other findings: LAE Lab Interpretation Oxygen Saturation Interpretation The oxygen saturation level is: 98%. The patient was on Room Air for the saturation measurement. Oxygen saturation interpretation is Normal. Hospital Encounter on 05/18/24 CBC W AUTO DIFFERENTIAL Result Value Ref Range WBC 10.2 4.0 - 10.7 x10E9/L RBC Count 4.58 3.90 - 5.20 x10E12/L Hemoglobin 12.3 11.9 - 15.8 g/dL Hematocrit 36.1 34.8 - 46.1 % MCV 78.8 (L) 80.0 - 98.0 fL MCH 26.9 26.7 - 33.6 pg MCHC 34.1 31.7 - 36.3 g/dL RDW-CV 13.7 11.3 - 14.8 % Platelet Count 216 150 - 420 x10E9/L MPV 10.6 7.8 - 11.4 fL Neutrophil % 56.1 41.0 - 74.0 % Lymphocyte % 31.8 17.0 - 47.0 % Monocyte % 4.9 3.0 - 11.0 % Eosinophil % 6.6 0.0 - 7.0 % Basophil % 0.5 0.0 - 1.6 % Immature Granulocytes % 0.1 0.0 - 1.0 % Neutrophil Absolute 5.70 1.60 - 7.50 x10E9/L Lymphocyte Absolute 3.23 1.00 - 4.40 x10E9/L Monocyte Absolute 0.50 0.15 - 1.00 x10E9/L Eosinophil Absolute 0.67 (H) 0.00 - 0.60 x10E9/L Basophil Absolute 0.05 0.00 - 0.13 x10E9/L BASIC METABOLIC PANEL (CALCIUM TOTAL) Result Value Ref Range Glucose 106 (H) 70 - 99 mg/dL Sodium 143 136 - 145 mmol/L Potassium 3.7 3.5 - 5.1 mmol/L Chloride 110 (H) 98 - 107 mmol/L CO2 23 23 - 31 mmol/L Anion Gap 10 4 - 15 mmol/L Calcium 8.8 8.4 - 10.4 mg/dL BUN 20 (H) 7 - 18 mg/dL Creatinine 1.02 0.57 - 1.11 mg/dL BUN/Creatinine Ratio 19.6 7.0 - 25.0 eGFR >60 >60 mL/min/1.73m2 MAGNESIUM BLOOD Result Value Ref Range Magnesium 2.0 1.6 - 2.6 mg/dL TROPONIN-I HIGH SENSITIVE BASELINE + 1HR Result Value Ref Range Troponin I High Sensitive <3 <=14 ng/L TROPONIN-I HIGH SENSITIVE REFLEX 1HOUR Result Value Ref Range Troponin I High Sensitive 19 (H) <=14 ng/L Delta Troponin I HS 16 (H) <6 ng/L CT HEAD WO CONTRAST Final Result Patient: JOSELYN WEST Time Out: 03:47 Exam(s): CT HEAD Without Contrast EXAM: CT Head Without Intravenous Contrast CLINICAL HISTORY: Reason for exam: Syncope and collapse. TECHNIQUE: Axial computed tomography images of the head/brain without intravenous contrast. All CT scans at this facility have been certified as using dose modulation, iterative reconstruction, and/or weight-based dosing when appropriate to reduce radiation dose to as low as reasonably achievable. COMPARISON: No relevant prior studies available. FINDINGS: Brain: No hemorrhage or mass effect. Ventricles: No hydrocephalus. Bones/joints: Unremarkable. Soft tissues: Unremarkable. Sinuses: No air fluid level. Mastoid air cells: Clear. Reading Radiologist: Kacey Vora on 05/19/2024 at 3:47 AM IMPRESSION No acute hemorrhage, hydrocephalus, or mass effect. at 0347 XR CHEST 1VW PORTABLE (Results Pending) Progress Notes ED Course ED Course as of 05/19/24 0411 Sat May 19, 2024 0222 CBC shows normal WBC, normal H&H, and normal platelets. [JL] 0222 BMP without significant acute abnormality. Serum glucose 106, normal bicarb, BUN mildly elevated at 20, normal creatinine. [JL] 0222 Magnesium is normal. [JL] 0223 Troponin negative at <3. [JL] 0223 XR CHEST 1VW PORTABLE No acute cardiopulmonary process. [JL] 0329 Troponin elevated at 19 with a delta of 16. [JL] 0337 [facility] was called for admission. [JL] 0349 CT HEAD WO CONTRAST Impression: No acute hemorrhage, hydrocephalus, or mass effect. [JL] ED Course User Index [JL] Dory Hernandez Meron, DO Clinical Impressions as of 05/19/24 0411 Syncope and collapse Headache, unspecified headache type NSTEMI (non-ST elevated myocardial infarction) (HCC) Medical Decision Making This is a 63-year-old female with history of hypertension who presents to the emergency department via EMS with the complaint of syncope. Here with daughter and granddaughter who helps provide history. Patient was with family celebrating family birthday. Patient went outside, complaint of nausea, witnessed to start slumping over, family members helped like her to the ground. She did lose consciousness. She did not hit her head or sustain any injury. They deny history of similar symptoms. Patient denies chest pain or shortness of breath. She started complaining of a headache after arrival to the ED. Differential diagnosis was considered including but not limited to cardiac arrhythmia, metabolic derangements, ACS, CVA, ICH, anemia. Problems Addressed: Syncope and collapse: acute illness or injury Amount and/or Complexity of Data Reviewed Independent Historian: EMS Details: Patient here with granddaughter and daughter who help provide history Labs: ordered. Decision-making details documented in ED Course. Radiology: ordered and independent interpretation performed. Decision-making details documented in ED Course. ECG/medicine tests: ordered and independent interpretation performed. Risk OTC drugs. Prescription drug management. Decision regarding hospitalization. Patient was taken to the exam room, placed on the monitor, and IV was established. History and physical exam were performed with findings as above. Patient was given Zofran with improvement. EKG, laboratory and radiologic studies were obtained and the results reviewed, as above. Initial troponin was negative. Repeat troponin elevated at 19 with a delta of 16. Patient was given aspirin. At this time, I feel the patient's medical condition warrants hospital admission. I have discussed the findings with the patient, as well as reason for admission to the hospital. Patient is in agreement. I have answered their questions and updated them on the results of testing thus far. [facility] was called. I have spoken with Dr. Cortes, who agrees for admission. Patient admittedto cardiac telemetry unit in stable condition. Basic admission orders have been written. Orders Placed This Encounter XR CHEST 1VW PORTABLE CT HEAD WO CONTRAST CBC W AUTO DIFFERENTIAL BASIC METABOLIC PANEL (CALCIUM TOTAL) MAGNESIUM BLOOD TROPONIN-I HIGH SENSITIVE BASELINE + 1HR TROPONIN-I HIGH SENSITIVE REFLEX 1HOUR EKG 12-LEAD ondansetron (Zofran) injection 4 mg ondansetron (disintegrating) (Zofran ODT) tablet 4 mg aspirin chew tablet 324 mg * Elizabet Cardozo RN - 05/18/2024 11:53 PM CDT Patient brought in via [facility] for a syncopal episode due to having a stressful phone call earlier tonight. No fall, no Loc, no blood thinners. Per [facility] patient is not wanting to cooperate. documented in this encounter Miscellaneous Notes * Clinical References MADISYN - Alla Gutierrez RN - 05/20/2024 10:42 AM CDT 37522 Discharge Instructions for High Blood Pressure (Hypertension) You have been diagnosed with high blood pressure. This is known as hypertension. This means the force of blood against your artery wright is too strong. It means your heart is working hard to move blood. High blood pressure usually has no symptoms. But over time, it can cause serious health problems. High blood pressure raises your risk for these problems: ?? Heart attack ?? Stroke ?? Heart disease ?? Heart failure ?? Kidney disease ?? Vision loss With help from your healthcare provider, you can manage your blood pressure and protect your health. Blood pressure measurements are given as 2 numbers. Systolic blood pressure is the upper number. This is the pressure when the heart contracts or pumps. Diastolic blood pressure is the lower number. This is the pressure when the heart relaxes between beats. Blood pressure is grouped like this: ?? Normal blood pressure. This is systolic of less than 120 and diastolic of less than 80 (120/80) at rest ?? Elevated blood pressure. This is systolic of 120 to 129 and diastolic less than 80 at rest ?? Stage 1 high blood pressure. This is systolic is 130 to 139 or diastolic between 80 to 89 at rest ?? Stage 2 high blood pressure. This is when systolic is 140 or higher or the diastolic is 90 or higher at rest Taking medicine ?? Learn to measure your own blood pressure. Keep a record of your results. Ask your healthcare provider what numbers mean that you need medical care. ?? Take your blood pressure medicine exactly as directed. Don?t skip doses. Missing doses can causeyour blood pressure to get out of control. ?? Ask your healthcare provider what to do if you miss a dose. ?? Don't take medicines that contain heart stimulants. This includes idpo-bbu-uqjaqtl medicines. Check for warnings about high blood pressure on the label. Ask the pharmacist before buying a medicineyou haven't used before. ?? Check with your healthcare provider before taking a decongestant. This includes medicines with pseudoephedrine or phenylephrine on the label. Ask the pharmacist if you are not sure. These can makehigh blood pressure worse. ?? If you take medicine to have sex, talk to your healthcare provider. Taking these medicines with a type of blood pressure medicine called nitrates can be dangerous. This can drop your blood pressure too low. Lifestyle changes ?? Keep a healthy weight. Get help to lose any extra pounds. Meeting with a dietitian can help you make diet changes to help with weight loss. ?? Cut back on salt. To do this: o Limit canned, dried, packaged, and fast foods. o Don?t add salt to your food at the table. o Season foods with herbs instead of salt when you cook. o Ask for no added salt when you eat out. o Have no more than 1,500 mg a day of sodium. You can make a positive change by cutting back to even 2,300 mg of sodium a day. Read all food labels to see how much sodium they have. ?? Follow the DASH eating plan. DASH stands for Dietary Approaches to Stop Hypertension. This plan advises a way to eat for healthy blood pressure. The diet includes vegetables, fruits, whole grains,and other healthy foods. ?? Eat food rich in potassium. ?? Begin an exercise program. Talk with your healthcare provider before you get started. Work up toaerobic exercise 3 to 4 times a week for an average of 40 minutes at a time to lower blood pressure. Even simple activities can help blood pressure. These include walking or gardening. ?? If you smoke, work to stop. Enroll in a stop-smoking program. This will improve your chance of success. Ask your healthcare provider about programs and medicines to help you stop smoking. ?? Limit drinks with caffeine to 2 per day. This includes such as coffee, black or green tea, and cola. ?? Never take stimulants such as amphetamines or cocaine. These drugs can be deadly for a person with high blood pressure. ?? Work to lessen your stress. You can learn ways to manage stress. ?? Limit how much alcohol you drink. This means no more than 1 drink a day for women and 2 drinks aday for men. Follow-up care Make a follow-up appointment as directed. When to call your healthcare provider Call your healthcare provider right away if you have any of these: ?? Moderate headache ?? Extreme drowsiness ?? Dizziness or fainting ?? Pulsating or rushing sound in your ears ?? Unexplained nosebleed ?? Blood pressure measured at home that is higher than 180/110 or as directed by your healthcare provider Call 911 Call 911 right away if you have any of these symptoms: ?? Chest pain or shortness of breath ?? Severe headache ?? Weakness, tingling, or numbness of your face, arms, or legs (especially on 1 side of the body) ?? Change in vision ?? Confusion, trouble speaking, or trouble understanding speech Last Reviewed Date: 2021 ?? 3467-3806 [employer]. All rights reserved. This information is not intended as a substitute for professional medical care. Always follow your healthcare professional's instructions. * Clinical References AVS - Alla Gutierrez RN - 05/20/2024 10:42 AM CDT Images from the original note were not included. [id number] What Is Syncope? Syncope is also known as fainting or a blackout. It's an abrupt and short-term loss of consciousness and motor tone. It's often caused by a sudden drop in blood flow to the brain or a lack of oxygen to the brain. It's then followed by complete and often rapid spontaneous recovery. Most people don?tneed follow-up treatment. However, you need treatment for certain causes, such as a heart or neurological issue. Also seek treatment if you were injured when you fainted, such as a head injury. The heart pumps blood nonstop to the brain and the rest of the body. Understanding heart rate and blood pressure changes Your brain and body need a steady flow of oxygen-rich blood. Your heart rate and blood pressure change to keep that flow steady throughout all your activities. ?? The heart makes electrical signals that move through it on pathways. These signals set the heartrate. They also tell the heart when to pump blood. ?? In response to your body?s needs, your brain may also trigger changes in your heart rate and blood pressure. Sensors in the body detect the amount of blood flow going to the brain and other parts of the body. If these sensors detect low blood flow, they signal the body to increase the amount of fluid in the blood vessels and increase the heart rate to provide more circulation. ?? The blood leaving the heart with each contraction supplies oxygen and nutrients as it flows in your brain. Warning signs Syncope often happens suddenly. Warning signs include: ?? Dimmed, blackened, or tunnel vision ?? Lightheadedness ?? Sleepiness ?? Rapid heartbeat Some people may also feel nauseated or sweaty. But you may have no warning signs at all. After syncope, you get better quickly. But you may feel tired. Don't drive if you are having warning signs that you may faint. Is it serious? Syncope is a common problem with many possible causes. Often these causes are not serious. For instance, syncope can be caused by standing for too long or sitting up too fast. In some cases, you may never faint again. But if you have syncope with a heart problem, it can be a warning sign of a more serious problem. For this reason, your healthcare provider may order several tests to look at heart function and rhythm. If you have had syncope, talk with your healthcare provider. In older adults, syncope may be a sign that a heart attack has happened. Don't delay seeking treatment. Even if the cause of syncope is not serious, there is a risk of injury from falling when you lose consciousness. When possible, finding a cause can reduce this risk. Last Reviewed Date: 2024 ?? [id number] [employer]. All rights reserved. This information is not intended as a substitute for professional medical care. Always follow your healthcare professional's instructions. * Clinical References AVS - Alla Gutierrez RN - 05/20/2024 10:42 AM CDT Images from the original note were not included. [id number] Possible Causes of Dizziness or Fainting Dizziness and fainting can have many causes. Below are some examples of possible causes your healthcare provider will look to rule out. Benign paroxysmal positional vertigo (BPPV) BPPV results when calcium crystals inside the inner ear shift into the wrong position. BPPV causes episodes of vertigo, a spinning sensation. Episodes most often happen when you move your head in a certain way. This is more common in people age 65 and older. Infection or inflammation The semicircular canals of the inner ear are 3 tiny tubes that loop in 3 different directions. As fluid moves in the tubes, signals are sent to the brain that help you maintain balance. These semicircular canals may become infected or inflamed. In this case, they can send the wrong balance signals.This can cause vertigo. M??ni??re disease M??ni??re disease happens when there is too much fluid in the semicircular canals. This can cause vertigo. It also can cause hearing problems and buzzing or ringing in the ears (called tinnitus). Youmay also have a feeling of pressure or fullness in the ear. Syncope Syncope is fainting that happens when the brain doesn?t get enough oxygen-rich blood. It can be caused by low heart rate or low blood pressure. If this occurs as part of a fear or anxiety response, it is called vasovagal syncope. It can also be caused by sitting or standing up too quickly. This is called orthostatic hypotension. Syncope may also be due to a heart valve problem, an abnormal heart rhythm, or other problems with your heart, lungs, or blood vessels. Other causes Other causes include: ?? Problems with the brain. These include a stroke or bleeding (hemorrhage) in the brain. You may need certain tests to rule out these conditions. ?? Medicines. Certain medicines can cause dizziness and even fainting. In some cases, stopping a medicine too quickly can lead to withdrawal symptoms, including dizziness and fainting. ?? Anxiety. Being anxious can lead to breathing changes, such as hyperventilation. These can lead to dizziness and fainting. Other causes for dizziness and fainting also exist. Talk with your provider for more information. Last Reviewed Date: 2021 ?? [id number] [employer]. All rights reserved. This information is not intended as a substitute for professional medical care. Always follow your healthcare professional's instructions. documented in this encounter Plan of Treatment Upcoming Encounters Date Type Department Care Team (Late st Contact Info) Description 11/28/2024 10:00 AM [employer] Office Visit [facility] - Neurology [address] [facility] [place] [id number] Nickolas Barboza MD [address] [place] [address] documented as of this encounter Procedures Procedure Name Priority Date/Time Associated Diagnosis Comments CARDIAC RHYTHM STRIP ORDER 05/23/2024 9:30 AM CDT ECHO COMPLETE Routine 05/20/2024 12:08 PM CDT Syncope and collapse CBC W/O DIFFERENTIAL Routine 05/20/2024 3:57 AM CDT Syncope and collapse BASIC METABOLIC PANEL (CALCIUM TOTAL) Routine 05/20/2024 3:56 AM CDT Syncope and collapse MAGNESIUM BLOOD Routine 05/20/2024 3:56 AM CDT Syncope and collapse LIPID PROFILE AM Draw 05/20/2024 3:56 AM CDT Syncope and collapse URINALYSIS REFLEX TO MICROSCOPIC NO CULTURE Routine 05/19/2024 12:23 PM CDT Syncope and collapse URINE MICROSCOPIC ONLY Routine 05/19/2024 12:23 PM CDT Syncope and collapse TROPONIN-I HIGH SENSITIVE STAT 05/19/2024 10:10 AM CDT Syncope and collapse TROPONIN-I HIGH SENSITIVE STAT 05/19/2024 6:41 AM CDT Syncope and collapse TROPONIN-I HIGH SENSITIVE REFLEX 1HOUR Timed 05/19/2024 2:[address] HEAD WO CONTRAST STAT 05/19/2024 1 :48 AM CDT Syncope and collapse Headache, unspecified headache type XR CHEST 1VW PORTABLE STAT 05/19/2024 1:48 AM CDT Syncope and collapse TROPONIN-I HIGH SENSITIVE BASELINE + 1HR STAT 05/19/2024 1:22 AM CDT BASIC METABOLIC PANEL (CALCIUM TOTAL) STAT 05/19/2024 1:22 AM CDT MAGNESIUM BLOOD STAT 05/19/2024 1:22 AM CDT CBC W AUTO DIFFERENTIAL STAT 05/19/2024 1:21 AM CDT EKG 12-LEAD STAT 05/19/2024 12:09 AM CDT Syncope and collapse documented in this encounter Results * CARDIAC RHYTHM STRIP ORDER (05/23/2024 9:30 AM CDT) Narrative 05/23/2024 9:30 AM CDT Ordered by an unspecified provider. Scanned Document CARDIAC SERVICES ORD ERABLES * ECHO COMPLETE (05/20/2024 12:08 PM CDT) LVOT diam 2.192 cm SSM CV FUJ I PACS LVOT diam 2.192 cm SSM CV FUJ I PACS LVOT pk luz 75.159 cm/s SSM CV F UJI PACS LVOT pk lzu 74.415 cm/s SSM CV F UJI PACS LVOT pk luz 75.903 cm/s SSM CV F UJI PACS LVOT VTI 17.37 cm SSM CV FUJ I PACS LVOT VTI 18.018 cm SSM CV FUJ I PACS LVOT VTI 16.723 cm SSM CV FUJ I PACS LA size 3.446 cm SSM CV FUJ I PACS LA size 2.838 cm SSM CV FUJ I PACS LA size 4.054 cm SSM CV FUJ I PACS LA vol BP 48.422 ml SSM CV FUJ I PACS LA vol BP 48.422 ml SSM CV FUJ I PACS MV A pk luz 163.408 cm/s SSM CV F UJI PACS MV A pk luz 163.408 cm/s SSM CV F UJI PACS MV decel slope 352.311 cm/s2 SSM C V FUJI PACS MV decel slope 352.311 cm/s2 SSM C V FUJI PACS MV E pk luz 165.951 cm/s SSM CV F UJI PACS MV E pk luz 165.951 cm/s SSM CV F UJI PACS MV E' lateral luz 7.239 cm/s SSM CV FUJI PACS MV E' lateral luz 7.239 cm/s SSM CV FUJI PACS MV mn grad 6.03 mmHg SSM CV FU JI PACS MV mn grad 5.134 mmHg SSM CV FU JI PACS MV mn grad 6.414 mmHg SSM CV FU JI PACS MV mn grad 6.542 mmHg SSM CV FU JI PACS MV VTI 72.512 cm SSM CV FUJ I PACS MV VTI 69.905 cm SSM CV FUJ I PACS MV VTI 76.144 cm SSM CV FUJ I PACS MV VTI 71.485 cm SSM CV FUJ I PACS TAPSE 2.162 cm SSM CV FUJ I PACS TAPSE 2.162 cm SSM CV FUJ I PACS TR pk luz 289.619 cm/s SSM CV FUJ I PACS TR pk luz 289.619 cm/s SSM CV FUJ I PACS LA vol index 0.029 l/m? ? ? SSM CV FUJI PACS Anatomical Region Laterality Modality Ultrasound 05/20/2024 11:2 7 AM CDT Narrative 05/20/2024 12:38 PM CDT Summary ??* Left ventricle is normal in size, with normal systolic function, wall motion is normal, and diastolic function is indeterminate. ??* The mitral valve was calcified with restriction motion of the anterior leaflet with moderate stenosis. Mean gradient was 7 mmHg. ??* The pulmonary artery systolic pressure is mildly elevated, 44 mmHg. Patient Info Name: ? Joselyn West Age: ? 63 years : ? 1960 Gender: ? Female Accession #: ? [id number] Ht: ? 65 in Wt: ? 137 lb BSA: ? 1.69 m2 Exam Date: ? 05/20/2024 11:27 AM Patient Status: ? OPO Study Site: ? [facility] Primary Location: ? [facility] EStudy Info Exam Type: ? ECHO COMPLETE Indications ?R55 - Syncope and collapse Procedure(s) ??* A complete 2D, color Doppler, spectral Doppler, and M-Mode transthoracic echocardiogram was performed. Staff Referring Physician: ? Yo Cortes Ordering Provider: ? Yo Cortes Attending Physician: ? Yo Cortes Master Motorcycle Technician: ? Angie Szymanski [facility] Left Ventricle ??The left ventricle is normal in size. Left ventricular systolic function is normal with an estimated ejection fraction of 55-60% by visual estimate. There is normal mass and geometry of the left ventricle. Left ventricular segmental wall motion is normal. The left ventricular diastolic function is indeterminate. Right Ventricle ??The right ventricle is normal in size. Right ventricular systolic function is normal. Left Atrium ??The left atrium is normal in size with a left atrial volume index of 29 ml/m2 by BP MOD. Right Atrium ??The right atrium is normal in size. Aortic Valve ??The aortic valve is trileaflet. There is no aortic valve stenosis. There is no aortic valve regurgitation. Pulmonic Valve ??The pulmonic valve is normal. There is trace pulmonic regurgitation. Mitral Valve ??The mitral valve is displaying restricted anterior leaflet motion, moderately thickened and calcified. There is mild to moderate mitral valve regurgitation. The mitral valve was calcified with restriction motion of the anterior leaflet with moderate stenosis. Mean gradient was 7 mmHg. Tricuspid Valve ??The tricuspid valve is normal. There is mild tricuspid valve regurgitation. The pulmonary artery systolic pressure is mildly elevated, 44 mmHg. Inferior Vena Cava ??The inferior vena cava is not well visualized and therefore the right atrial pressure is assumed to be 8 mmHg. Pericardium/Pleural ??There is a trivial pericardial effusion. Aorta ??The aortic root at the sinus of Valsalva is not well visualized. The ascending aorta is not well visualized. Measurements Left Ventricular Outflow Tract Name ? Value ?Normal LVOT 2D LVOT Diameter ? 2.2 cm ? LVOT Area ?3.8 cm2 ? LVOT Doppler LVOT Peak Velocity ? 0.8 m/s ? LVOT Peak Gradient ?2 mmHg ? LVOT Mean Velocity ?48.42 cm/s ? LVOT Mean Gradient ?1 mmHg ? LVOT VTI ? 18.0 cm ? LVOT Stroke Volume ? 68 ml ? LVOT Stroke Volume Index ?40 ml/m2 ? 35-58 Pulmonic Valve Name ? Value ?Normal PV Doppler PV Accel Time ? 97.05 ms Mitral Valve Name ? Value ?Normal MV Doppler MV Peak Gradient ? 17 mmHg ? MV Mean Gradient ?7 mmHg ? MV DI (VTI) ? 4.23 ? MV PHT ?136 ms ? MV Area (PHT) ? 1.62 cm2 ? 4.00-5.00 MV Area (Cont Eq VTI) ? 0.89 cm2 ? MV Diastolic Function MV E Peak Velocity ? 1.7 m/sec ? MV A Peak Velocity ? 1.6 m/sec ? MV E/A ? 1.0 ? MV Decel Time (PW) ?471 ms ? MV Annular TDI MV Septal e' Velocity ? 9 cm/s ? >=8 MV E/e' (Septal) ?19 ? <=8 MV Lateral e' Velocity ?7 cm/s ?>=10 MV E/e' (Lateral) ? 23 ? <=8 MV e' Average ? 8 cm/s ? MV E/e' (Average) ? 21 Tricuspid Valve Name ? Value ?Normal TV Regurgitation Doppler TR Peak Velocity ? 2.9 m/s ? TR Peak Gradient ? 34 mmHg ? Estimated PAP/RSVP RA Pressure ?10 mmHg ? <=5 PA Systolic Pressure ? 44 mmHg ? <35 RV Systolic Pressure ? 44 mmHg ? <36 Aorta Name ? Value ?Normal Ascending Aorta Ao Root Diameter (MM) ? 3.0 cm ? Ao Root Diam Index (MM) ?1.8 cm/m2 Aortic Valve Name ? Value ?Normal AV 2D/MM AV Cusp Sep (MM) ?1.4 cm ? AV Regurgitation 2D LVOT Area ? 3.77 cm2 Ventricles Name ? Value ?Normal LV Dimensions 2D/MM IVS Diastole Thickness (MM) ? 1.0 cm ? 0.6-0.9 LVID Diastole (MM) ?5.2 cm ? 3.8-5.2 LVPW Diastolic Thickness (MM) ?0.8 cm ? 0.6-0.9 IVS Systolic Thickness (MM) ? 1.2 cm ? LVID Systole (MM) ? 3.4 cm ? 2.2-3.5 LVPW Systolic Thickness (MM) ?1.3 cm ? LV Mass (MM Cubed) ? 168 g ?67-162 LV Mass Index (MM Cubed) ? 99 g/m2 ? 43-95 Relative Wall Thickness (MM) ?0.31 ? LV Fractional Shortening/Ejection Fraction 2D/MM LV Fractional Shortening (MM) ?35 % ? 27-45 LV EF (MM Vivian) ? 64 % ? 54-74 RV Dimensions 2D/MM TAPSE ? 2.2 cm ? >=1.7 Atria Name ? Value ?Normal LA Dimensions LA Dimension (2D) ? 4.1 cm ? 2.7-3.8 LA Dimen Index (2D) ?2.4 cm/m2 ? LA Volume (BP MOD) ? 48 ml ? LA Volume Index (BP MOD) ?29 ml/m2 ? 1634 Report Signatures Finalized by Silvano ??Joe on 05/20/2024 12:38 PM Procedure Note Silvano Diaz MD - 05/20/2024 Summary * Left ventricle is normal in size, with normal systolic function,wall motion is normal, and diastolic function is indeterminate. * The mitral valve was calcified with restriction motion of theanterior leaflet with moderate stenosis. Mean gradient was 7 mmHg. * The pulmonary artery systolic pressure is mildly elevated, 44 mmHg. Patient Info Name: Joselyn West Age: 63 years : 1960 Gender: Female Ht: 65 in Wt: 137 lb BSA: 1.69 m2 Exam Date: 05/20/2024 11:27 AM Patient Status: OPO Study Site: [facility] Primary Location: [facility] EStudy Info Exam Type: ECHO COMPLETE Indications R55 - Syncope and collapse Procedure(s) * A complete 2D, color Doppler, spectral Doppler, and M-Modetransthoracic echocardiogram was performed. Staff Referring Physician: Yo Cortes Ordering Provider: Yo Cortes Attending Physician: Yo Cortes Master Motorcycle Technician: Angie Szymanski [facility] Left Ventricle The left ventricle is normal in size. Left ventricular systolic functionis normal with an estimated ejection fraction of 55-60% by visual estimate.There is normal mass and geometry of the left ventricle. Left ventricularsegmental wall motion is normal. The left ventricular diastolic function is indeterminate. Right Ventricle The right ventricle is normal in size. Right ventricular systolicfunction is normal. Left Atrium The left atrium is normal in size with a left atrial volume index of29 ml/m2 by BP MOD. Right Atrium The right atrium is normal in size. Aortic Valve The aortic valve is trileaflet. There is no aortic valve stenosis. Thereis no aortic valve regurgitation. Pulmonic Valve The pulmonic valve is normal. There is trace pulmonic regurgitation. Mitral Valve The mitral valve is displaying restricted anterior leaflet motion, moderately thickened and calcified. There is mild to moderate mitralvalve regurgitation. The mitral valve was calcified with restriction motion ofthe anterior leaflet with moderate stenosis. Mean gradient was 7 mmHg. Tricuspid Valve The tricuspid valve is normal. There is mild tricuspid valveregurgitation. The pulmonary artery systolic pressure is mildly elevated, 44 mmHg. Inferior Vena Cava The inferior vena cava is not well visualized and therefore the rightatrial pressure is assumed to be 8 mmHg. Pericardium/Pleural There is a trivial pericardial effusion. Aorta The aortic root at the sinus of Valsalva is not well visualized. The ascending aorta is not well visualized. Measurements Left Ventricular Outflow Tract Name Value Normal LVOT 2D LVOT Diameter 2.2 cm LVOT Area 3.8 cm2 LVOT Doppler LVOT Peak Velocity 0.8 m/s LVOT Peak Gradient 2 mmHg LVOT Mean Velocity 48.42 cm/s LVOT Mean Gradient 1 mmHg LVOT VTI 18.0 cm LVOT Stroke Volume 68 ml LVOT Stroke Volume Index 40 ml/m2 35-58 Pulmonic Valve Name Value Normal PV Doppler PV Accel Time 97.05 ms Mitral Valve Name Value Normal MV Doppler MV Peak Gradient 17 mmHg MV Mean Gradient 7 mmHg MV DI (VTI) 4.23 MV PHT 136 ms MV Area (PHT) 1.62 cm2 4.00-5.00 MV Area (Cont Eq VTI) 0.89 cm2 MV Diastolic Function MV E Peak Velocity 1.7 m/sec MV A Peak Velocity 1.6 m/sec MV E/A 1.0 MV Decel Time (PW) 471 ms MV Annular TDI MV Septal e' Velocity 9 cm/s >=8 MV E/e' (Septal) 19 <=8 MV Lateral e' Velocity 7 cm/s >=10 MV E/e' (Lateral) 23 <=8 MV e' Average 8 cm/s MV E/e' (Average) 21 Tricuspid Valve Name Value Normal TV Regurgitation Doppler TR Peak Velocity 2.9 m/s TR Peak Gradient 34 mmHg Estimated PAP/RSVP RA Pressure 10 mmHg <=5 PA Systolic Pressure 44 mmHg <35 RV Systolic Pressure 44 mmHg <36 Aorta Name Value Normal Ascending Aorta Ao Root Diameter (MM) 3.0 cm Ao Root Diam Index (MM) 1.8 cm/m2 Aortic Valve Name Value Normal AV 2D/MM AV Cusp Sep (MM) 1.4 cm AV Regurgitation 2D LVOT Area 3.77 cm2 Ventricles Name Value Normal LV Dimensions 2D/MM IVS Diastole Thickness (MM) 1.0 cm 0.6-0.9 LVID Diastole (MM) 5.2 cm 3.8-5.2 LVPW Diastolic Thickness (MM) 0.8 cm 0.6-0.9 IVS Systolic Thickness (MM) 1.2 cm LVID Systole (MM) 3.4 cm 2.2-3.5 LVPW Systolic Thickness (MM) 1.3 cm LV Mass (MM Cubed) 168 g 67-162 LV Mass Index (MM Cubed) 99 g/m2 43-95 Relative Wall Thickness (MM) 0.31 LV Fractional Shortening/Ejection Fraction 2D/MM LV Fractional Shortening (MM) 35 % 27-45 LV EF (MM Teicholz) 64 % 54-74 RV Dimensions 2D/MM TAPSE 2.2 cm >=1.7 Atria Name Value Normal LA Dimensions LA Dimension (2D) 4.1 cm 2.7-3.8 LA Dimen Index (2D) 2.4 cm/m2 LA Volume (BP MOD) 48 ml LA Volume Index (BP MOD) 29 ml/m2 16-34 Report Signatures Finalized by Silvano Diaz on 05/20/2024 12:38 PM Yo Cortes MD E[facility] * (ABNORMAL) CBC W/O DIFFERENTIAL (05/20/2024 3:57 AM CDT) WBC 7.7 4.0 - 10.7 x10E9/L 05/20/2024 5:06 AM T [facility] RBC Count 4.36 3.90 - 5.20 x10E12/L 05/20/2024 5:06 AM [facility] Hemoglobin 11.7(L) 11.9 - 15.8 g/dL 05/20/2024 5:06 AM [facility] Hematocrit 34.5(L) 34.8 - 46.1 % 05/20/2024 5:06 AM [facility] MCV 79.1(L) 80.0 - 98.0 fL 05/20/2024 5:06 AM [facility] MCH 26.8 26.7 - 33.6 pg 05/20/2024 5:06 AM [facility] MCHC 33.9 31.7 - 36.3 g/dL 05/20/2024 5:06 AM [facility] RDW-CV 13.6 11.3 - 14.8 % 05/20/2024 5:06 AM [facility] Platelet Count 200 150 - 420 x10E9/L 05/20/2024 5:06 AM [facility] MPV 11.0 7.8 - 11.4 fL 05/20/2024 5:06 AM [facility] Blood BLOOD SPECIMEN / Unknown Lab Venipuncture / Unknown 05/20/2024 3:57 AM CDT 05/20/2024 4:45 AM CDT Yo Cortes MD LAB - HEMATOLO GY ORDERABLES [facility] [address] * (ABNORMAL) LIPID PROFILE (05/20/2024 3:56 AM CDT) Appearance Serum Clear Clear 05/20/20 5:13 AM CDT [facility] Cholesterol 220(H) <200 mg/dL 05/20/2024 5:13 AM CDT [facility] Triglycerides 93 <=150 mg/dL 05/20/2024 5:13 AM CDT [facility] Comment:N-acetylcysteine adm inistration may falsely depress Triglyceride results and also affect calculations derived from those parameters. HDL Cholesterol 66 >=40 mg/dL 05/20/2024 5:13 AM CDT [facility] Comment: N-acetylcysteine administration may falsely depress HDL results and also affect calculations derived from those parameters. HDL % 30.0 % 05/20/2024 5:13 AM CDT [facility] Chol HDL Ratio 3.3 05/20/2024 5:13 AM T [facility] LDL/HDL Ratio 2.1 05/20/2024 5:13 AM CDT [facility] VLDL Calculated 19 12 - 38 mg/dL 05/20/2024 5:13 AM CDT [facility] LDL Calculated 135(H) 95 - 130 mg/dL 05/20/2024 5:13 AM T [facility] Blood BLOOD SPECIMEN / Unknown Lab Venipuncture / Unknown 05/20/2024 3:56 AM CDT 05/20/2024 4:41 AM CDT Yo Cortes MD LAB - CHEMISTR Y ORDERABLES [facility] [address] * MAGNESIUM BLOOD (05/20/2024 3:56 AM CDT) Magnesium 2.0 1.6 - 2.6 mg/dL 05/20/2024 5:12 AM CDT [facility] Blood BLOOD SPECIMEN / Unknown Lab Venipuncture / Unknown 05/20/2024 3:56 AM CDT 05/20/2024 4:41 AM CDT Yo Cortes MD LAB - CHEMISTR Y ORDERABLES [facility] [address] * (ABNORMAL) BASIC METABOLIC PANEL (CALCIUM TOTAL) (05/20/2024 3:56 AM CDT) [facility] Glucose 87 70 - 99 mg/dL 05/20/2024 5:12 AM CDT [facility] Sodium 144 136 - 145 mmol/L 05/20/2024 5:12 AM CDT [facility] Potassium 4.8 3.5 - 5.1 mmol/L 05/20/2024 5:12 AM T [facility] Chloride 110(H) 98 - 107 mmol/L 05/20/2024 5:12 AM CDT [facility] CO2 29 23 - 31 mmol/L 05/20/2024 5:12 AM CDT [facility] Anion Gap 5 4 - 15 mmol/L 05/20/2024 5:12 AM CDT [facility] Calcium 8.6 8.4 - 10.4 mg/dL 05/20/2024 5:12 AM CDT [facility] BUN 17 7 - 18 mg/dL 05/20/2024 5:12 AM CDT [facility] Creatinine 1.11 0.57 - 1.11 mg/dL 05/20/2024 5:12 AM T [facility] BUN/Creatinine Ratio 15.3 7.0 - 25.0 05/20/2024 5:12 AM T [facility] eGFR 57(L) >60 mL/min/1.7 3m2 05/20/2024 5:12 AM CDT [facility] Blood BLOOD SPECIMEN / Unknown Lab Venipuncture / Unknown 05/20/2024 3:56 AM CDT 05/20/2024 4:41 AM CDT Narrative [facility] - 05/20/2024 5:12 AM CDT The GFR result was calculated using the updated CKD-EPI Creatinine Equation (2020). Yo Cortes MD LAB - CHEMISTR Y ORDERABLES Performing Organization Address [facility]/ZIP Co de Phone Number [facility] [address] * (ABNORMAL) URINE MICROSCOPIC ONLY (05/19/2024 12:23 PM CDT) RBC UA 6-10(A) None, 0-2 # /hpf 05/19/2024 12:50 PM CDT [facility] WBC UA 3-5(A) None, 0-2 # /hpf 05/19/2024 12:50 PM CDT [facility] Bacteria UA Occasional None, Occasional 05/19/2024 12:50 PM CDT [facility] Squamous Epithelial Cells Occasional None, Occasional #/hpf 05/19/2024 12:50 PM CDT [facility] Mucus UA Present(A) Absent 05/19/2024 12:50 PM CDT [facility] Hyaline Casts 2-5(A) None, 0-1 /LPF 05/19/2024 12:50 PM CDT [facility] Granular Casts None 0-1, None /LPF 05/19/2024 12:50 PM CDT [facility] Urine URINE SPECIMEN OBTAINED BY CLEAN CATCH PROCEDURE / Unknown Collection / Unknown 05/19/2024 12:23 PM CDT 05/19/2024 12:29 PM CDT Yo Mcdonald DO LAB - URINALYSIS O RDERABLES Performing Organization Address [facility] Co de Phone Number [facility] [address] * (ABNORMAL) URINALYSIS REFLEX TO MICROSCOPIC NO CULTURE (05/19/2024 12:23 PM CDT) Color UA Yellow Straw, Yellow, Light Yellow, Dark Yellow 05/19/2024 12:46 PM CDT [facility] Clarity UA Clear Clear 05/19/2024 12:46 PM CDT [facility] Specific [place] UA 1.024 1.001 - 1.034 05/19/2024 12:46 PM CDT [facility] pH UA 5.0 5.0 - 8.5 pH 05/19/2024 12:46 PM CDT [facility] Glucose UA Negative Negative 05/19/2024 12:46 PM CDT [facility] Ketone UA Negative Negative 05/19/2024 12:46 PM CDT [facility] Blood UA Negative Negative 05/19/2024 12:46 PM CDT [facility] Bilirubin UA Negative Negative 05/19/2024 12:46 PM CDT [facility] Protein UA Negative Negative 05/19/2024 12:46 PM CDT [facility] Leukocyte UA 2+(A) Negative 05/19/2024 12:46 PM CDT [facility] Nitrite UA Negative Negative 05/19/2024 12:46 PM CDT [facility] Urobilinogen UA Negative Negative, 0.2, 1.0 05/19/2024 12:46 PM CDT [facility] Urine Microscopy Urine microscopy to follow 05/19/2024 12:46 PM CDT [facility] Urine URINE SPECIMEN OBTAINED BY CLEAN CATCH PROCEDURE / Unknown Collection / Unknown 05/19/2024 12:23 PM CDT 05/19/2024 12:29 PM CDT Yo Mcdonald DO LAB - URINALYSIS O RDERABLES [facility] [address] * TROPONIN-I HIGH SENSITIVE (05/19/2024 10:10 AM CDT) Troponin I High Sensitive 7 <=14 ng/L 05/19/2024 10:50 AM CDT [facility] Blood BLOOD SPECIMEN / Unknown Lab Venipuncture / Unknown 05/19/2024 10:10 AM CDT 05/19/2024 10:24 AM CDT Yo Mcdonald DO LAB - CHEMISTRY OR DERABLES [facility] [address] * TROPONIN-I HIGH SENSITIVE (05/19/2024 6:41 AM CDT) Troponin I High Sensitive 3 <=14 ng/L 05/19/2024 7:16 AM CDT [facility] Blood BLOOD SPECIMEN / Unknown Lab Venipuncture / Unknown 05/19/2024 6:41 AM CDT 05/19/2024 6:48 AM CDT Yo Cortes MD LAB - CHEMISTR Y ORDERABLES Performing Organization Address City/[facility]/ZIP Co de Phone Number [facility] [address] [place] [address], [facility] * (ABNORMAL) TROPONIN-I HIGH SENSITIVE REFLEX 1HOUR (05/19/2024 2:26 AM CDT) [facility] Troponin I High Sensitive 19(H) <=14 ng/L 05/19/2024 3:01 AM CDT [facility] Delta Troponin I HS 16(H) <6 ng/L 05/19/2024 3:01 AM CDT [facility] Comment:For acute chest pain (<3 hours), a delta of > or = 6 ng/L from baseline to 1 hour may indicate myocardial injury. Blood BLOOD SPECIMEN / Unknown Venipuncture / Unknown 05/19/2024 2:26 AM CDT 05/19/2024 2:43 AM CDT Dory Hernandez DO LAB - CHEMISTRY [place] Performing Organization Address City/[facility]/ZIP Co de Phone Number [facility] [address], [place] [address] * CT HEAD WO CONTRAST (05/19/2024 1:48 AM CDT) Anatomical Region Laterality Modality Head Computed Tomogra phy Impressions 05/19/2024 3:47 AM CDT ??No acute hemorrhage, hydrocephalus, or mass effect. at 0347 Narrative 05/19/2024 3:47 AM CDT Patient: JOSELYN WEST ??Time Out: 03:47 Exam(s): CT HEAD Without Contrast EXAM: ??CT Head Without Intravenous Contrast CLINICAL HISTORY: ?? Reason for exam: Syncope and collapse. TECHNIQUE: ??Axial computed tomography images of the head/brain without intravenous contrast. ??All CT scans at this facility have been certified as using dose modulation, iterative reconstruction, and/or weight-based dosing when appropriate to reduce radiation dose to as low as reasonably achievable. COMPARISON: ??No relevant prior studies available. FINDINGS: ??Brain: ??No hemorrhage or mass effect. ??Ventricles: ??No hydrocephalus. ??Bones/joints: ??Unremarkable. ??Soft tissues: ??Unremarkable. ??Sinuses: ??No air fluid level. ??Mastoid air cells: ??Clear. Reading Radiologist: Kacey Vora on 05/19/2024 at 3:47 AM Procedure Note Kacey Vora MD - 05/19/2024 Patient: JOSELYN WEST Time Out: 03:47 Exam(s): CT HEAD Without Contrast EXAM: CT Head Without Intravenous Contrast CLINICAL HISTORY: Reason for exam: Syncope and collapse. TECHNIQUE: Axial computed tomography images of the head/brain without intravenous contrast. All CT scans at this facility have been certified as using dose modulation, iterative reconstruction, and/or weight-based dosing when appropriate to reduce radiation dose to as low as reasonably achievable. COMPARISON: No relevant prior studies available. FINDINGS: Brain: No hemorrhage or mass effect. Ventricles: No hydrocephalus. Bones/joints: Unremarkable. Soft tissues: Unremarkable. Sinuses: No air fluid level. Mastoid air cells: Clear. Reading Radiologist: Kacey Vora on 05/19/2024 at 3:47 AM IMPRESSION No acute hemorrhage, hydrocephalus, or mass effect. at [address] ORDERABLES * XR CHEST 1VW PORTABLE (05/19/2024 1:48 AM CDT) Anatomical Region Laterality Modality Chest Computed Radiogr aphy 05/19/2024 9:07 PM CDT Impressions 05/19/2024 9:08 PM CDT Impression: 1. ??No acute cardiopulmonary process. > Interpreting Provider: Michelle Pittman MD on 05/19/2024 9:08 PM Narrative 05/19/2024 9:08 PM CDT XR CHEST 1VW PORTABLE ?? 05/19/2024 1:48 AM Comparison: History: R55: Syncope and collapse. Findings: Single view of the chest demonstrates no focal airspace opacity, pleural effusion, or pneumothorax. Heart size appears mildly enlarged. Scattered interstitial markings appear chronic. No acute osseous or soft tissue abnormality. Procedure Note Michelle Pittman MD - 05/19/2024 XR CHEST 1VW PORTABLE 05/19/2024 1:48 AM Comparison: History: R55: Syncope and collapse. Findings: Single view of the chest demonstrates no focal airspace opacity, pleural effusion, or pneumothorax. Heart size appears mildly enlarged. Scattered interstitial markings appear chronic. No acute osseous or soft tissue abnormality. Impression: 1. No acute cardiopulmonary process. > Interpreting Provider: Michelle Pittman MD on 05/19/2024 9:08 PM Dory Hernandez DO DIAGNOSTIC IMAGING O RDERABLES * TROPONIN-I HIGH SENSITIVE BASELINE + 1HR (05/19/2024 1:22 AM CDT) Troponin I High Sensitive <3 <=14 ng/L 05/19/2024 1:46 AM CDT [facility] Blood BLOOD SPECIMEN / Unknown Venipuncture / Unknown 05/19/2024 1:22 AM CDT 05/19/2024 1:24 AM CDT Dory Hernandez DO LAB - [facility]MI[facility]Y [facility] [address] [place], [place] [address] * MAGNESIUM BLOOD (05/19/2024 1:22 AM CDT) Magnesium 2.0 1.6 - 2.6 mg/dL 05/19/2024 1:38 AM CDT [facility] Blood BLOOD SPECIMEN / Unknown Venipuncture / Unknown 05/19/2024 1:22 AM CDT 05/19/2024 1:24 AM CDT Dory Hernandez DO LAB - CHEMISTRY [facility] [facility] [address] * (ABNORMAL) BASIC METABOLIC PANEL (CALCIUM TOTAL) (05/19/2024 1:22 AM CDT) Glucose 106(H) 70 - 99 mg/dL 05/19/2024 1:38 AM CDT [facility] Sodium 143 136 - 145 mmol/L 05/19/2024 1:38 AM CDT [facility] Potassium 3.7 3.5 - 5.1 mmol/L 05/19/2024 1:38 AM CDT [facility] Chloride 110(H) 98 - 107 mmol/L 05/19/2024 1:38 AM CDT [facility] CO2 23 23 - 31 mmol/L 05/19/2024 1:38 AM CDT [facility] Anion Gap 10 4 - 15 mmol/L 05/19/2024 1:38 AM CDT [facility] Calcium 8.8 8.4 - 10.4 mg/dL 05/19/2024 1:38 AM CDT [facility] BUN 20(H) 7 - 18 mg/dL 05/19/2024 1:38 AM CDT [facility] Creatinine 1.02 0.57 - 1.11 mg/dL 05/19/2024 1:38 AM CDT [facility] BUN/Creatinine Ratio 19.6 7.0 - 25.0 05/19/2024 1:38 AM CDT [facility] eGFR >60 >60 mL/min/1.7 3m2 05/19/2024 1:38 AM CDT [facility] Blood BLOOD SPECIMEN / Unknown Venipuncture / Unknown 05/19/2024 1:22 AM CDT 05/19/2024 1:24 AM CDT Narrative [facility] - 05/19/2024 1:38 AM CDT The GFR result was calculated using the updated CKD-EPI Creatinine Equation (2020). Dory Hernandez DO LAB - CHEMISTRY [place] [facility] [address] * (ABNORMAL) CBC W AUTO DIFFERENTIAL (05/19/2024 1:21 AM CDT) WBC 10.2 4.0 - 10.7 x10E9/L 05/19/2024 1:23 AM CDT [facility] RBC Count 4.58 3.90 - 5.20 x10E12/L 05/19/2024 1:23 AM CDT [facility] Hemoglobin 12.3 11.9 - 15.8 g/dL 05/19/2024 1:23 AM CDT [facility] Hematocrit 36.1 34.8 - 46.1 % 05/19/2024 1:23 AM CDT [facility] MCV 78.8(L) 80.0 - 98.0 fL 05/19/2024 1:23 AM CDT [facility] MCH 26.9 26.7 - 33.6 pg 05/19/2024 1:23 AM CDT [facility] MCHC 34.1 31.7 - 36.3 g/dL 05/19/2024 1:23 AM CDT [facility] RDW-CV 13.7 11.3 - 14.8 % 05/19/2024 1:23 AM CDT [facility] Platelet Count 216 150 - 420 x10E9/L 05/19/2024 1:23 AM CDT [facility] MPV 10.6 7.8 - 11.4 fL 05/19/2024 1:23 AM CDT [facility] Neutrophil % 56.1 41.0 - 74.0 % 05/19/2024 1:23 AM CDT [facility] Lymphocyte % 31.8 17.0 - 47.0 % 05/19/2024 1:23 AM CDT [facility] Monocyte % 4.9 3.0 - 11.0 % 05/19/2024 1:23 AM CDT [facility] Eosinophil % 6.6 0.0 - 7.0 % 05/19/2024 1:23 AM CDT [facility] Basophil % 0.5 0.0 - 1.6 % 05/19/2024 1:23 AM CDT [facility] Immature Granulocytes % 0.1 0.0 - 1.0 % 05/19/2024 1:23 AM CDT [facility] Neutrophil Absolute 5.70 1.60 - 7.50 x10E9/L 05/19/2024 1:23 AM CDT [facility] Lymphocyte Absolute 3.23 1.00 - 4.40 x10E9/L 05/19/2024 1:23 AM CDT [facility] Monocyte Absolute 0.50 0.15 - 1.00 x10E9/L 05/19/2024 1:23 AM CDT [facility] Eosinophil Absolute 0.67(H) 0.00 - 0.60 x10E9/L 05/19/2024 1:23 AM CDT [facility] Basophil Absolute 0.05 0.00 - 0.13 x10E9/L 05/19/2024 1:23 AM CDT [facility] Blood BLOOD SPECIMEN / Unknown Venipuncture / Unknown 05/19/2024 1:21 AM CDT 05/19/2024 1:21 AM CDT Dory Hernandez DO LAB - HEMATOLOGY ORD ERABLES [facility] [address] * EKG 12-LEAD (05/19/2024 12:09 AM CDT) Ventricular Rate 66 BPM [facility] Atrial Rate 66 BPM [facility] P-R Interval 172 ms [facility] QRS Duration ms 88 ms [facility] Q-T Interval ms 422 ms [facility] QTC Calculation (Bezet) 442 ms [facility] Calculated P Blackstone 67 degrees [facility] Calculated R Blackstone 57 degrees [facility] Calculated T Blackstone 37 degrees [facility] Interpretation EKG Normal sinus rhythm Possible Left atrial enlargement Minimal voltage criteria for LVH, may be normal variant ( Sokolow-Beasley ) Borderline ECG Confirmed by Jimi GORDON WILLIAM ([id number]) on 05/20/2024 12:38:43 PM [facility] 05/19/2024 12:0 9 AM CDT 05/20/2024 12:38 PM CDT Dory Hernandez DO ECG ORDERABLES [facility] documented in this encounter Visit Diagnoses Diagnosis NSTEMI (non-ST elevated myocardial infarction) (HCC)- Primary Acute myocardial infarction, subendocardial infarction, episode of care unspecified Syncope and collapse Headache, unspecified headache type Syncope and collapse Primary hypertension Unspecified essential hypertension documented in this encounter Administered Medications Inactive Administered Medications - up to 3 most recent administrations Medication Order MAR Action Action Date Dose Rate Site 0.9% NaCl injection 1-10 mL 1-10 mL, Intracatheter, PRN, Other, peripheral line flush, Starting on 05/19/24 at 0612, Until 05/20/24 at 1435, Flush peripheral IV catheter with 1-10 mL of normal saline before and after medications and prn to clear blood from the line or to verify patency. 0.9% NaCl injection 3 mL 3 mL, Intracatheter, EVERY 8 HOURS, First dose on 05/19/24 at 0645, Until Discontinued, Flush peripheral IV catheter with 3 mL of normal saline every 8 hours. $ Given 05/19/2024 10:08 PM CDT 3 mL Bolus Current Bag/Med 05/19/2024 6:45 AM CDT 3 mL 0.9% NaCl with potassium chloride 20 mEq in 1000 mL premix infusion at 75 mL/hr, Intravenous, CONTINUOUS, Starting on 05/19/24 at 0645, Until 05/20/24 at 0859 $ New Bag/Syringe 05/20/2024 12:09 AM CDT 75 mL/hr $ New Bag/Syringe 05/19/2024 8:09 AM CDT 75 mL/ hr acetaminophen (Tylenol) tablet 650 mg 650 mg, Oral, EVERY 6 HOURS PRN, Mild Pain, Starting on 05/19/24 at 0615, Until 05/20/24 at 1435, Patient preference for lesser PRN pain meds may be honored when the patient requests a less strong medication, a lower dose, or a less intrusive route of administration when the lesser drug, dose and route have been ordered for the patient. This patient request must be documented in the MAR. If both oral and IV options are ordered for the same pain severity, give oral first unless patient cannot tolerate oral intake dnhebaeg-isqrwsjag-nzwdvldidkm (Maalox; Mylanta) suspension 20 mL 20 mL, Oral, EVERY 6 HOURS PRN, GI Upset, Starting on 05/19/24 at 0615, Until 05/20/24 at 1435, Shake well before using. aspirin chew tablet 324 mg 324 mg, Oral, NOW, 1 dose, On 05/19/24 at 0345 $ Given 05/19/2024 3:46 AM CDT 324 mg aspirin chew tablet 81 mg 81 mg, Oral, DAILY, First dose on 05/19/24 at 0900, Until Discontinued $ Given 05/20/2024 10:19 AM CDT 81 mg $ Given 05/19/2024 8:26 AM CDT 81 mg bisacodyl (Dulcolax) suppository 10 mg 10 mg, Rectal, ONCE PRN, Constipation, if no BM 24 hours after oral bisacodyl, 1 dose, Starting on 05/19/24 at 0615, Until 05/20/24 at 1435 bisacodyl EC (Dulcolax) tablet 5 mg 5 mg, Oral, ONCE PRN, Constipation, no BM for 72 hours, 1 dose, Starting on 05/19/24 at 0615, Until 05/20/24 at 1435, Do not take within 1 hour of antacid, milk or milk product. Do not chew, crush or cut in half. cefTRIAXone (Rocephin) 2,000 mg in 0.9% NaCl IV 50 mL IVPB 2,000 mg (2 g), at 100 mL/hr, Intravenous, Once, 1 dose, On 05/20/24 at 0945, DO NOT coadminister with calcium-containing solutions including Lactated Ringers or D5LR Ceftriaxone can cause precipitation when administered with calcium-containing fluids, including LR. Flush lines with a compatible fluid, such as D5W or NS before and after ceftriaxone dose. Admin through separate lumens is acceptable., Indication for anti-infective therapy: Suspected infection, Site of anti-infective therapy: Urine/Genitourinary $ New Bag/Syringe 05/20/2024 10:19 AM CDT 2,000 mg 100 mL/hr enoxaparin (Lovenox) injection 40 mg 40 mg, Subcutaneous, DAILY, First dose on 05/19/24 at 0900, Until Discontinued, (for prefilled syringes) do not expel air bubble from the syringe prior to the injection Remind Patient to not rub injection site. Could cause hematoma. $ Given 05/20/2024 10:19 AM CDT 40 mg Left Arm $ Given 05/19/2024 8:26 AM CDT 40 mg Ab dominal Tissue hydrALAZINE (Apresoline) injection 10 mg 10 mg, Intravenous, EVERY 4 HOURS PRN, Hypertension, q4h prn for SBP>180 and/or DBP>100, Starting on 05/19/24 at 1010, Until 05/20/24 at 1435 melatonin tablet 3 mg 3 mg, Oral, AT BEDTIME PRN - MR X 1, Insomnia, Starting on 05/19/24 at 0615, Until 05/20/24 at 1435, may repeat x 1 after 30 minutes if no benefit of no sleep maintenance ondansetron (disintegrating) (Zofran ODT) tablet 4 mg 4 mg, Oral, ONCE, 1 dose, On 05/19/24 at 0145, Dissolved orally on tongue $ Given 05/19/2024 1:29 AM CDT 4 mg ondansetron (disintegrating) (Zofran ODT) tablet 4 mg 4 mg, Oral, EVERY 6 HOURS PRN, Nausea/Vomiting, Starting on 05/19/24 at 0615, Until 05/20/24 at 1435, Dissolved orally on tongue ondansetron (Zofran) injection 4 mg 4 mg, Intravenous, EVERY 6 HOURS PRN, Nausea/Vomiting, Starting on 05/19/24 at 0615, Until 05/20/24 at 1435, Administer IV if patient is NPO, actively vomiting, or unable to swallow. polyethylene glycol 3350 (Miralax) packet 17 g 17 g, Oral, DAILY PRN, Constipation, Starting on 05/19/24 at 0615, Until 05/20/24 at 1435, Administer daily when escalating to bisacodyl or fleet documented in this encounter Active and Recently Administered Medications Times are shown in CDT. Scheduled Medication Order 05/18/2024 05/19/2024 05/20/2024 0.9% NaCl injection 3 mL(Linked Group 1) 3 mL, Intracatheter, EVERY 8 HOURS, First dose on 05/19/24 at 0645, Until Discontinued, Flush peripheral IV catheter with 3 mL of normal saline every 8 hours. 0645 (Bolus Current Bag/Med - Provider: Selvin Mohan RN)1249 (Not Administered - Provider: Shaggy Carney RN - Reason: IV Currently Infusing)2208 ($ Given - Provider: Zack Segura, RN) 0630 (Not Administered - Provider: Zack Segura, RN - Reason: IV Currently Infusing) aspirin chew tablet 324 mg (COMPLETED) 324 mg, Oral, NOW, 1 dose, On 05/19/24 at 0345 0346 ($ Given - Provider: Elizabet Cardozo, DEANN) aspirin chew tablet 81 mg 81 mg, Oral, DAILY, First dose on 05/19/24 at 0900, Until Discontinued 0826 ($ Given - Provider: Shaggy Carney RN) 1019 ($ Given - Provider: Alla Gutierrez, DEANN) cefTRIAXone (Rocephin) 2,000 mg in 0.9% NaCl IV 50 mL IVPB (COMPLETED) 2,000 mg (2 g), at 100 mL/hr, Intravenous, Once, 1 dose, On 05/20/24 at 0945, DO NOT coadminister with calcium-containing solutions including Lactated Ringers or D5LR Ceftriaxone can cause precipitation when administered with calcium-containing fluids, including LR. Flush lines with a compatible fluid, such as D5W or NS before and after ceftriaxone dose. Admin through separate lumens is acceptable., Indication for anti-infective therapy: Suspected infection, Site of anti-infective therapy: Urine/Genitourinary 1019 ($ New Bag/Syri nge - Provider: Alla Gutierrez RN)1054 (Stopped - Provider: Alla Gutierrez, DEANN) enoxaparin (Lovenox) injection 40 mg 40 mg, Subcutaneous, DAILY, First dose on 05/19/24 at 0900, Until Discontinued, (for prefilled syringes) do not expel air bubble from the syringe prior to the injection Remind Patient to not rub injection site. Could cause hematoma. 0826 ($ Given - Provider: Shaggy Carney RN) 1019 ($ Given - Provider: Alla Gutierrez, DEANN) ondansetron (disintegrating) (Zofran ODT) tablet 4 mg (COMPLETED) 4 mg, Oral, ONCE, 1 dose, On 05/19/24 at 0145, Dissolved orally on tongue 0129 ($ Given - Provider: Elizabet Cardozo, DEANN) Continuous Medication Order 05/18/2024 05/19/2024 05/20/2024 0.9% NaCl with potassium chloride 20 mEq in 1000 mL premix infusion (CANCELED) at 75 mL/hr, Intravenous, CONTINUOUS, Starting on 05/19/24 at 0645, Until 05/20/24 at 0859 0809 ($ New Bag/Syringe - Provider: Shaggy Carney RN) 0009 ($ New Bag/Syringe - Provider: Zack Segura RN)0800 (Stopped - Provider: Alla Gutierrez RN) PRN Medication Order 05/18/2024 05/19/2024 05/20/2024 0.9% NaCl injection 1-10 mL(Linked Group 1) 1-10 mL, Intracatheter, PRN, Other, peripheral line flush, Starting on 05/19/24 at 0612, Until 05/20/24 at 1435, Flush peripheral IV catheter with 1-10 mL of normal saline before and after medications and prn to clear blood from the line or to verify patency. acetaminophen (Tylenol) tablet 650 mg 650 mg, Oral, EVERY 6 HOURS PRN, Mild Pain, Starting on 05/19/24 at 0615, Until 05/20/24 at 1435, Patient preference for lesser PRN pain meds may be honored when the patient requests a less strong medication, a lower dose, or a less intrusive route of administration when the lesser drug, dose and route have been ordered for the patient. This patient request must be documented in the MAR. If both oral and IV options are ordered for the same pain severity, give oral first unless patient cannot tolerate oral intake pxrgvnsp-dxnksclnh-kwqsmpyoeyi (Maalox; Mylanta) suspension 20 mL 20 mL, Oral, EVERY 6 HOURS PRN, GI Upset, Starting on 05/19/24 at 0615, Until 05/20/24 at 1435, Shake well before using. bisacodyl (Dulcolax) suppository 10 mg 10 mg, Rectal, ONCE PRN, Constipation, if no BM 24 hours after oral bisacodyl, 1 dose, Starting on 05/19/24 at 0615, Until 05/20/24 at 1435 bisacodyl EC (Dulcolax) tablet 5 mg 5 mg, Oral, ONCE PRN, Constipation, no BM for 72 hours, 1 dose, Starting on 05/19/24 at 0615, Until 05/20/24 at 1435, Do not take within 1 hour of antacid, milk or milk product. Do not chew, crush or cut in half. hydrALAZINE (Apresoline) injection 10 mg 10 mg, Intravenous, EVERY 4 HOURS PRN, Hypertension, q4h prn for SBP>180 and/or DBP>100, Starting on 05/19/24 at 1010, Until 05/20/24 at 1435 melatonin tablet 3 mg 3 mg, Oral, AT BEDTIME PRN - MR X 1, Insomnia, Starting on 05/19/24 at 0615, Until 05/20/24 at 1435, may repeat x 1 after 30 minutes if no benefit of no sleep maintenance ondansetron (disintegrating) (Zofran ODT) tablet 4 mg(Linked Group 2) 4 mg, Oral, EVERY 6 HOURS PRN, Nausea/Vomiting, Starting on 05/19/24 at 0615, Until 05/20/24 at 1435, Dissolved orally on tongue ondansetron (Zofran) injection 4 mg(Linked Group 2) 4 mg, Intravenous, EVERY 6 HOURS PRN, Nausea/Vomiting, Starting on 05/19/24 at 0615, Until 05/20/24 at 1435, Administer IV if patient is NPO, actively vomiting, or unable to swallow. polyethylene glycol 3350 (Miralax) packet 17 g 17 g, Oral, DAILY PRN, Constipation, Starting on 05/19/24 at 0615, Until 05/20/24 at 1435, Administer daily when escalating to bisacodyl or fleet Linked Groups Order Group 1: SALINE LOCK, INSERT AND MAINTAIN (CANCELED) Routine, CONTINUOUS, Starting on 05/19/24 at 0615, Until Specified, New collection And 0.9% NaCl injection 3 mLJump to med 3 mL, Intracatheter, EVERY 8 HOURS, First dose on 05/19/24 at 0645, Until Discontinued, Flush peripheral IV catheter with 3 mL of normal saline every 8 hours. And 0.9% NaCl injection 1-10 mLJump to med 1-10 mL, Intracatheter, PRN, Other, peripheral line flush, Starting on 05/19/24 at 0612, Until 05/20/24 at 1435, Flush peripheral IV catheter with 1-10 mL of normal saline before and after medications and prn to clear blood from the line or to verify patency. Group 2: ondansetron (disintegrating) (Zofran ODT) tablet 4 mgJump to med 4 mg, Oral, EVERY 6 HOURS PRN, Nausea/Vomiting, Starting on 05/19/24 at 0615, Until 05/20/24 at 1435, Dissolved orally on tongue Or ondansetron (Zofran) injection 4 mgJump to med 4 mg, Intravenous, EVERY 6 HOURS PRN, Nausea/Vomiting, Starting on 05/19/24 at 0615, Until 05/20/24 at 1435, Administer IV if patient is NPO, actively vomiting, or unable to swallow. documented in this encounter
--- OUTSIDE RECORDS SUMMARY | 2024-10-27 11:03 | XMS_ITS | Encounter Summary ---
Author Organization [facility] Address [address] [place] [address] Care Team Providers Care Environmental Science Instructor Name Role Phone Tre Rodriguez MD Primary Care Provider [phone] Encounter Details Date Type Department Care Team [...] on filedocumented in this encounter Care Teams Environmental Science Instructor Relationship Specialty Start Date End Date Tre Rodriguez MD PCP - General Family Practice 11/22/16 documented as of this encounter
--- OUTSIDE RECORDS SUMMARY | 2024-10-27 11:03 | XMS_ITS | Encounter Summary ---
Author Organization [facility] Address [address] [place] [address] Care Team Providers Care Tire Man Name Role Phone Tre Rodriguez MD Primary Care Provider [phone] Reason for Visit * Auth/Cert Specialty Diagnoses / Procedures Referred By Naye t Referred To Contact Radiology [facility] [address] [address] [place] [address] Referral ID Status Reason Start Date Expiration Date Visits Re quested Visits Authorized [id number] 1 1 Encounter Details Date Type Department Care Team (Latest Contact Info) Description 11/22/2016 4:10 PM HEARINGS REPORTER - 11/22/2016 11:59 PM HEARINGS REPORTER Hospital Encounter [facility] [address] [address] [place] [address] [place] [id number] [address] Discharge Disposition: Home or Self [...] Date/Time Associated Diagnosis Comments XR CHEST PA AND LATERAL 2 VW Routine 11/22/2016 4:33 PM HEARINGS REPORTER Personal history of pneumonia documented in this encounter Results * XR CHEST PA AND LATERAL (11/22/2016 4:33 PM HEARINGS REPORTER) Anatomical Region Laterality Modality Chest Computed Radiogr aphy 11/22/2016 4:33 PM HEARINGS REPORTER Impressions 11/22/2016 4:41 PM HEARINGS REPORTER IMPRESSION: No consolidations evident on chest radiography. Narrative 11/22/2016 4:41 PM HEARINGS REPORTER PROCEDURE/EXAM(S): XR CHEST PA AND LATERAL TIME/DATE: 11/22/2016 4:33 PM. INTERPRETATION LOCATION: [facility]. CLINICAL INFORMATION & INDICATION: Female of 56 years age with history of pneumonia. COMPARISON STUDIES: None. FINDINGS: No focal airspace disease. Hyperexpanded lung volumes. Unremarkable pulmonary vasculature. No pleural effusion. No pneumothorax. Unremarkable cardiomediastinal silhouette. No acute osseous abnormalities. Procedure Note Columba Tracy MD - 11/22/2016 PROCEDURE/EXAM(S): XR CHEST PA AND LATERAL TIME/DATE: 11/22/2016 4:33 PM. INTERPRETATION LOCATION: [facility]. CLINICAL INFORMATION & INDICATION: Female of 56 years age with history of pneumonia. COMPARISON STUDIES: None. FINDINGS: No focal airspace disease. Hyperexpanded lung volumes. Unremarkable pulmonary vasculature. No pleural effusion. No pneumothorax. Unremarkable cardiomediastinal silhouette. No acute osseous abnormalities. IMPRESSION IMPRESSION: No consolidations evident on chest radiography. Tre Rodriguez MD DIAGNOSTIC IMAGING O RDERABLES documented in this encounter Visit Diagnoses Diagnosis Personal history of pneumonia Personal history of pneumonia (recurrent) documented in this encounter Care Teams Tire Man Relationship Specialty Start Date End Date Tre Rodriguez MD PCP - General Family Practice 11/22/16 documented as of this encounter
--- OUTSIDE RECORDS SUMMARY | 2024-10-27 11:03 | XMS_ITS | Encounter Summary ---
Author Organization [facility] Address [address] [place] [address] Care Team Providers Care Winder Fixer Name Role Phone Tre Rodriguez MD Primary Care Provider [phone] Encounter Details Date Type Department Care Team [...] on filedocumented in this encounter Care Teams Winder Fixer Relationship Specialty Start Date End Date Tre Rodriguez MD PCP - General Family Practice 11/22/16 documented as of this encounter
--- OUTSIDE RECORDS SUMMARY | 2024-10-27 11:03 | XMS_ITS | Patient Health Summary ---
Author Organization [facility] Address [address] [place] [address] Care Team Providers Care Registrar Assistant Name Role Phone Unavailable Primary Care Provider Unavailabl e Note from [facility],non-owned Affiliates and Associated Physician Practices is amultiple site organization consisting of ambulatory clinics and hospital sitesin [place], [place], [place] and [place]. This disclosure is being madepursuant to the Care Everywhere program and may not contain all information available regarding this patient. Last updated 18.[facility] Allergies No known active allergies Medications * Be aware that medications may not be up to date on this document. Alwaysverify current medications with the patient. * acetaminophen (Tylenol) 325 MG tablet(Started 05/20/2024) Take 2 (two) tablets by mouth every 6 hours as needed Maximum allowable Acetaminophen amount = 4 Grams (4000 mg) / 24 hours. Active Problems Problem Noted Date Diagnosed Date Syncope and collapse 05/19/2024 NSTEMI (non-ST elevated myocardial infarction) 0 05/19/2024 Primary hypertension 05/19/2024 Social History Tobacco Use Types Packs/Day Years [...] - - Body Mass Index - - Procedures * CARDIAC RHYTHM STRIP ORDER(Performed 05/23/2024) * ECHO COMPLETE(Performed 05/20/2024) Performed for Syncope and collapse * CBC W/O DIFFERENTIAL(Performed 05/20/2024) Performed for Syncope and collapse * LIPID PROFILE(Performed 05/20/2024) Performed for Syncope and collapse * MAGNESIUM BLOOD(Performed 05/20/2024) Performed for Syncope and collapse * BASIC METABOLIC PANEL (CALCIUM TOTAL)(Performed 05/20/2024) Performed for Syncope and collapse * URINE MICROSCOPIC ONLY(Performed 05/19/2024) Performed for Syncope and collapse * URINALYSIS REFLEX TO MICROSCOPIC NO CULTURE(Performed 05/19/2024) Performed for Syncope and collapse * TROPONIN-I HIGH SENSITIVE(Performed 05/19/2024) Performed for Syncope and collapse * TROPONIN-I HIGH SENSITIVE(Performed 05/19/2024) Performed for Syncope and collapse * TROPONIN-I HIGH SENSITIVE REFLEX 1HOUR(Performed 05/19/2024) * CT HEAD WO CONTRAST(Performed 05/19/2024) Performed for Syncope and collapse, Headache, unspecified headache type * XR CHEST 1VW PORTABLE(Performed 05/19/2024) Performed for Syncope and collapse * TROPONIN-I HIGH SENSITIVE BASELINE + 1HR(Performed 05/19/2024) * MAGNESIUM BLOOD(Performed 05/19/2024) * BASIC METABOLIC PANEL (CALCIUM TOTAL)(Performed 05/19/2024) * CBC W AUTO DIFFERENTIAL(Performed 05/19/2024) * EKG 12-LEAD(Performed 05/19/2024) Performed for Syncope and collapse Results * CARDIAC RHYTHM STRIP ORDER (05/23/2024 [...] CV F UJI PACS LVOT pk luz 74.415 cm/s [facility] CV F UJI PACS [...] 44 mmHg. Patient Info Name: ? Joselyn Esparza Age: ? 63 years : ? 1960 Gender: ? Female Accession #: ? [id number] Ht: ? 65 in Wt: ? 137 lb BSA: ? 1.69 m2 Exam Date: ? 05/20/2024 11:27 AM Patient Status: ? OPO Study Site: ? [facility] Primary [facility] EStudy Info Exam Type: ? ECHO COMPLETE Indications ?R55 - Syncope and collapse Procedure(s) ??* A complete 2D, color Doppler, spectral Doppler, and M-Mode transthoracic echocardiogram was performed. Staff Referring Physician: ? Yo Cortes Ordering Provider: ? Yo Cortes Attending Physician: ? Yo Cortes Fork Operator: ? Angie Szymanski [facility] Left Ventricle ??The left ventricle is [...] Volume Index (BP MOD) ?29 ml/m2 ? 16-34 Report Signatures Finalized by Silvano ??Joe on [...] elevated, 44 mmHg. Patient Info Name: Joselyn Esparza Age: 63 years : 1960 Gender: Female Ht: 65 in Wt: 137 lb BSA: 1.69 m2 Exam Date: 05/20/2024 11:27 AM Patient Status: OPO Study Site: [facility] EStudy Info Exam Type: ECHO COMPLETE Indications R55 - Syncope and collapse Procedure(s) * A complete 2D, color Doppler, spectral Doppler, and M-Modetransthoracic echocardiogram was performed. Staff Referring Physician: Yo Cortes Ordering Provider: Yo Cortes Attending Physician: Yo Cortes Fork Operator: Angie Szymanski [facility] Left Ventricle The left ventricle is [...] 4.0 - 10.7 x10E9/L 05/20/2024 5:06 AM CDT [facility] RBC Count 4.36 3.90 - 5.20 x10E12/L 05/20/2024 5:06 AM CDT [facility] Hemoglobin 11.7(L) 11.9 - 15.8 g/dL 05/20/2024 5:06 AM CDT [facility] Hematocrit 34.5(L) 34.8 - 46.1 % 05/20/2024 5:06 AM CDT [facility] MCV 79.1(L) 80.0 - 98.0 fL 05/20/2024 5:06 AM CDT [facility] MCH 26.8 26.7 - 33.6 pg 05/20/2024 5:06 AM CDT [facility] MCHC 33.9 31.7 - 36.3 g/dL 05/20/2024 5:06 AM CDT [facility] RDW-CV 13.6 11.3 - 14.8 % 05/20/2024 5:06 AM CDT [facility] Platelet Count 200 150 - 420 x10E9/L 05/20/2024 5:06 AM CDT [facility] MPV 11.0 7.8 - 11.4 fL 05/20/2024 5:06 AM CDT [facility] Blood BLOOD SPECIMEN / Unknown Lab Venipuncture / Unknown 05/20/2024 3:57 AM CDT 05/20/2024 4:45 AM CDT Yo Cortes MD LAB - HEMATOLO GY ORDERABLES [facility] [address] [place] [address], [facility] * (ABNORMAL) BASIC METABOLIC PANEL (CALCIUM TOTAL) (05/20/2024 3:56 AM CDT) Only the most recent of2 resultswithin the time period is included. Glucose 87 70 - 99 mg/dL 05/20/2024 5:12 AM [facility] Sodium 144 136 - 145 mmol/L 05/20/2024 5:12 AM [facility] Potassium 4.8 3.5 - 5.1 mmol/L 05/20/2024 5:12 AM [facility] Chloride 110(H) 98 - 107 mmol/L 05/20/2024 5:12 AM [facility] CO2 29 23 - 31 mmol/L 05/20/2024 5:12 AM [facility] Anion Gap 5 4 - 15 mmol/L 05/20/2024 5:12 AM T [facility] Calcium 8.6 8.4 - 10.4 mg/dL 05/20/2024 5:12 AM T [facility] BUN 17 7 - 18 mg/dL 05/20/2024 5:12 AM T [facility] Creatinine 1.11 0.57 - 1.11 mg/dL 05/20/2024 5:12 AM [facility] BUN/Creatinine Ratio 15.3 7.0 - 25.0 05/20/2024 5:12 AM CDT [facility] eGFR 57(L) >60 mL/min/1.7 3m2 05/20/2024 5:12 AM CDT [facility] Blood BLOOD SPECIMEN / Unknown Lab Venipuncture / Unknown 05/20/2024 3:56 AM CDT 05/20/2024 4:41 AM CDT Narrative [facility] - 05/20/2024 5:12 AM CDT The GFR result was calculated using the updated CKD-EPI Creatinine Equation (2020). Yo Cortes MD LAB - CHEMISTR Y ORDERABLES [facility] [address] * MAGNESIUM BLOOD (05/20/2024 3:56 AM CDT) Only the most recent of2 resultswithin the time period is included. Magnesium 2.0 1.6 - 2.6 mg/dL 05/20/2024 5:12 AM CDT [facility] Blood BLOOD SPECIMEN / Unknown Lab Venipuncture / Unknown 05/20/2024 3:56 AM CDT 05/20/2024 4:41 AM CDT Yo Cortes MD LAB - CHEMISTR Y ORDERABLES Performing Organization Address City/[facility]/ZIP Co de Phone Number [facility] [address] * (ABNORMAL) LIPID PROFILE (05/20/2024 3:56 AM CDT) Appearance Serum Clear Clear 05/20/20 5:13 AM CDT [facility] Cholesterol 220(H) <200 mg/dL 05/20/2024 5:13 AM CDT [facility] Triglycerides 93 <=150 mg/dL 05/20/2024 5:13 AM CDT [facility] Comment:N-acetylcysteine adm inistration may falsely depress Triglyceride results and also affect calculations derived from those parameters. HDL Cholesterol 66 >=40 mg/dL 05/20/2024 5:13 AM CDT [facility] Comment: N-acetylcysteine administration may falsely depress HDL results and also affect calculations derived from those parameters. HDL % 30.0 % 05/20/2024 5:13 AM CDT [facility] Chol HDL Ratio 3.3 05/20/2024 5:13 AM CDT [facility] LDL/HDL Ratio 2.1 05/20/2024 5:13 AM CDT [facility] VLDL Calculated 19 12 - 38 mg/dL 05/20/2024 5:13 AM CDT [facility] LDL Calculated 135(H) 95 - 130 mg/dL 05/20/2024 5:13 AM CDT [facility] Blood BLOOD SPECIMEN / Unknown Lab Venipuncture / Unknown 05/20/2024 3:56 AM CDT 05/20/2024 4:41 AM CDT Yo Cortes MD LAB - CHEMISTR Y ORDERABLES [facility] [address] [place] [address], [facility] * (ABNORMAL) URINALYSIS REFLEX TO MICROSCOPIC NO CULTURE (05/19/2024 12:23 PM CDT) Color UA Yellow Straw, Yellow, Light Yellow, Dark Yellow 05/19/2024 12:46 PM CDT [facility] Clarity UA Clear Clear 05/19/2024 12:46 PM CDT [facility] Specific Seguin UA 1.024 1.001 - 1.034 05/19/2024 12:46 PM CDT [facility] pH UA 5.0 5.0 - 8.5 pH 05/19/2024 12:46 PM CDT [facility] Glucose UA Negative Negative 05/19/2024 12:46 PM CDT [facility] Ketone UA Negative Negative 05/19/2024 12:46 PM CDT [facility] Blood UA Negative Negative 05/19/2024 12:46 PM CDT [facility] Bilirubin UA Negative Negative 05/19/2024 12:46 PM CDT [facility] Protein UA Negative Negative 05/19/2024 12:46 PM CDT [facility] Leukocyte UA 2+(A) Negative 05/19/2024 12:46 PM CDT [facility] Nitrite UA Negative Negative 05/19/2024 12:46 PM CDT [facility] Urobilinogen UA Negative Negative, 0.2, 1.0 05/19/2024 12:46 PM CDT [facility] Urine Microscopy Urine microscopy to follow 05/19/2024 12:46 PM CDT [facility] Urine URINE SPECIMEN OBTAINED BY CLEAN CATCH PROCEDURE / Unknown Collection / Unknown 05/19/2024 12:23 PM CDT 05/19/2024 12:29 PM CDT Yo Bajwa Mcdonald LAB - URINALYSIS O RDNLEBLES [facility] [address] * (ABNORMAL) URINE MICROSCOPIC ONLY (05/19/2024 12:23 PM CDT) [facility] RBC UA 6-10(A) None, 0-2 # /hpf 05/19/2024 12:50 PM CDT [facility] WBC UA 3-5(A) None, 0-2 # /hpf 05/19/2024 12:50 PM CDT [facility] Bacteria UA Occasional None, Occasional 05/19/2024 12:50 PM CDT [facility] Squamous Epithelial Cells Occasional None, Occasional #/hpf 05/19/2024 12:50 PM CDT [facility] Mucus UA Present(A) Absent 05/19/2024 12:50 PM CDT [facility] Hyaline Casts 2-5(A) None, 0-1 /LPF 05/19/2024 12:50 PM CDT [facility] Granular Casts None 0-1, None /LPF 05/19/2024 12:50 PM CDT [facility] Urine URINE SPECIMEN OBTAINED BY CLEAN CATCH PROCEDURE / Unknown Collection / Unknown 05/19/2024 12:23 PM CDT 05/19/2024 12:29 PM CDT Yo Bajwa Mcdonald DO LAB - URINALYSIS O RDERABLES [facility] [address] * TROPONIN-I HIGH SENSITIVE (05/19/2024 10:10 AM CDT) Only the most recent of2 resultswithin the time period is included. [facility] Troponin I High Sensitive 7 <=14 ng/L 05/19/2024 10:50 AM CDT [facility] Blood BLOOD SPECIMEN / Unknown Lab Venipuncture / Unknown 05/19/2024 10:10 AM CDT 05/19/2024 10:24 AM CDT Yo Mcdonald DO LAB - CHEMISTRY OR DERABLES [facility] [address] [place], [place] [address] * (ABNORMAL) TROPONIN-I HIGH SENSITIVE REFLEX 1HOUR (05/19/2024 2:26 AM CDT) Troponin I High Sensitive 19(H) <=14 ng/L 05/19/2024 3:01 AM CDT [facility] Delta Troponin I HS 16(H) <6 ng/L 05/19/2024 3:01 AM CDT [facility] Comment:For acute chest pain (<3 hours), a delta of > or = 6 ng/L from baseline to 1 hour may indicate myocardial injury. Blood BLOOD SPECIMEN / Unknown Venipuncture / Unknown 05/19/2024 2:26 AM CDT 05/19/2024 2:43 AM CDT Dory Hernandez DO LAB - CHEMISTRY ORDE INEZ [facility] [address] [place], [place] [address] * CT HEAD WO CONTRAST (05/19/2024 1:48 AM CDT) Anatomical Region Laterality Modality Head Computed Tomogra phy Impressions 05/19/2024 3:47 AM CDT ??No acute hemorrhage, hydrocephalus, or mass effect. at 0347 Narrative 05/19/2024 3:47 AM CDT Patient: JOSELYN ESPARZA ??Time Out: 03:47 Exam(s): CT HEAD Without [...] Kacey Vora MD - 05/19/2024 Patient: JOSELYN ESPARZA Time Out: 03:47 Exam(s): CT HEAD Without [...] BASELINE + 1HR (05/19/2024 1:22 AM CDT) [facility] Troponin I High Sensitive <3 <=14 ng/L 05/19/2024 1:46 AM CDT [facility] Blood BLOOD SPECIMEN / Unknown Venipuncture / Unknown 05/19/2024 1:22 AM CDT 05/19/2024 1:24 AM CDT Dory Hernandez DO LAB - CHEMISTRY [facility] Organization Address City/State/[facility] Co de Phone Number [facility] [address] * (ABNORMAL) CBC W AUTO DIFFERENTIAL (05/19/2024 1:21 AM CDT) [facility] WBC 10.2 4.0 - 10.7 x10E9/L 05/19/2024 1:23 AM CDT [facility] RBC Count 4.58 3.90 - 5.20 x10E12/L 05/19/2024 1:23 AM CDT [facility] Hemoglobin 12.3 11.9 - 15.8 g/dL [...] - 1.0 % 05/19/2024 1:23 AM CDT [facility] Neutrophil Absolute 5.70 1.60 - 7.50 x10E9/L 05/19/2024 1:23 AM CDT [facility] Lymphocyte Absolute 3.23 1.00 - 4.40 x10E9/L 05/19/2024 1:23 AM CDT [facility] Monocyte Absolute 0.50 0.15 - 1.00 x10E9/L 05/19/2024 1:23 AM CDT [facility] Eosinophil Absolute 0.67(H) 0.00 - 0.60 x10E9/L 05/19/2024 1:23 AM CDT [facility] Basophil Absolute 0.05 0.00 - 0.13 x10E9/L 05/19/2024 1:23 AM CDT [facility] Blood BLOOD SPECIMEN / Unknown Venipuncture / Unknown 05/19/2024 1:21 AM CDT 05/19/2024 1:21 AM CDT Dory Hernandez DO LAB - HEMATOLOGY ORD ERABLES [facility] [address] * EKG 12-LEAD (05/19/2024 12:09 AM CDT) Ventricular Rate 66 BPM [facility] Atrial Rate 66 BPM [facility] P-R Interval 172 ms [facility] QRS Duration ms 88 ms [facility] Q-T Interval ms 422 ms [facility] QTC Calculation (Bezet) 442 ms [facility] MUSE Calculated P [place] 67 degrees [facility] Calculated R [place] 57 degrees [facility] Calculated T [place] 37 degrees [facility] Interpretation EKG Normal sinus rhythm Possible Left atrial enlargement Minimal voltage criteria for LVH, may be normal variant ( Sokolow-Beasley ) Borderline ECG Confirmed by Jimi GORDON WILLIAM ([id number]) on 05/20/2024 12:38:43 PM [facility] MUSE 05/19/2024 12:0 9 AM CDT 05/20/2024 12:38 PM CDT Dory Hernandez DO ECG ORDERABLES [facility] MUSE
--- OUTSIDE RECORDS SUMMARY | 2024-10-27 11:03 | XMS_ITS | Encounter Summary ---
Author Organization [facility] Address [address] [place] [address] Care Team Providers Care Harvest Worker Name Role Phone Tre Rodriguez MD Primary Care Provider [phone] Encounter Details Date Type Department Care Team (Late st Contact Info) Description 12/04/2023 External Device Data [facility] ABSTRACTION Provider, Abstract [...] on filedocumented in this encounter Care Teams Harvest Worker Relationship Specialty Start Date End Date Tre Rodriguez MD PCP - General Family Practice 11/22/16 documented as of this encounter
--- OUTSIDE RECORDS SUMMARY | 2024-10-27 11:03 | XMS_ITS | Encounter Summary ---
Author Organization [facility] Address [address] [place] [address] Care Team Providers Care Elect Equip Maint Eng Name Role Phone Tre Rodriguez MD Primary Care Provider [phone] Encounter Details Date Type Department Care Team (Late st Contact Info) Description 12/02/2023 External Device Data [facility] ABSTRACTION Provider, Abstract [...] on filedocumented in this encounter Care Teams Elect Equip Maint Eng Relationship Specialty Start Date End Date Tre Rodriguez MD PCP - General Family Practice 11/22/16 documented as of this encounter
--- OUTSIDE RECORDS SUMMARY | 2024-10-27 11:03 | XMS_ITS | Referral Summary ---
Author Organization [facility] [employer] Address [address] [place] [address] Care Team Providers Care Adjunct Mathematics Instructor Name Role Phone Unavailable Primary Care Provider Unavailabl e Source Comments [facility],non-owned Affiliates and Associated Physician Practices is amultiple site organization consisting of ambulatory clinics and hospital sitesin [place], [place], [place] and [place]. This disclosure is being madepursuant to the Care Everywhere program and may not contain all information available regarding this patient. Last updated 18.[facility] [employer] Allergies No known active allergies Medications * [...] - - Body Mass Index - - Functional Status Functional Status Response Date of [...] person have difficulty concentrating/remembering/making decisions? No 05/19/2024 Plan of Treatment Upcoming Encounters Date Type Department Care Team (Late st Contact Info) Description 11/28/2024 10:00 AM ASSEM[employer]ER [employer] Office Visit [facility] - Neurology [address] [facility] [place] [id number] Nickolas Barboza MD [address] [place] [address] Procedures Procedure Name Priority Date/Time Associated Diagnosis Comments LIPID PROFILE AM Draw 05/20/2024 3:56 AM CDT Syncope and collapse from Last 3 Months or Most Recently Relevant to Health Maintenance Results * (ABNORMAL) LIPID PROFILE (05/20/2024 3:56 AM CDT) Appearance Serum Clear Clear 05/20/20 5:13 AM CDT [facility] Cholesterol 220(H) <200 mg/dL 05/20/2024 5:13 AM CDT [facility] Triglycerides 93 <=150 mg/dL 05/20/2024 5:13 AM CDT [facility] Comment:N-acetylcysteine adm inistration may falsely depress Triglyceride results and also affect calculations derived from those parameters. HDL Cholesterol 66 >=40 mg/dL 05/20/2024 5:13 AM CDT [facility] Comment: N-acetylcysteine administration may falsely depress HDL results and also affect calculations derived from those parameters. HDL % 30.0 % 05/20/2024 5:13 AM CDT [facility] Chol HDL Ratio 3.3 05/20/2024 5:13 AM CDT [facility] LDL/HDL Ratio 2.1 05/20/2024 5:13 AM CDT [facility] VLDL Calculated 19 12 - 38 mg/dL 05/20/2024 5:13 AM CDT [facility] LDL Calculated 135(H) 95 - 130 mg/dL 05/20/2024 5:13 AM CDT [facility] Blood BLOOD SPECIMEN / Unknown Lab Venipuncture / Unknown 05/20/2024 3:56 AM CDT 05/20/2024 4:41 AM CDT Yo Cortes MD LAB - CHEMISTR Y ORDERABLES Performing Organization Address City/State/[facility] Co de Phone Number [facility] [address] from Last 3 Months or Most Recently Relevant to Health Maintenance Advance Directives * Full Code (Latest Code Status on File) Date Activated Date Inactivated Comments 05/19/2024 6:15 AM 05/20/2024 2:40 PM
--- OUTSIDE RECORDS SUMMARY | 2024-10-27 11:04 | XMS_ITS | Encounter Summary ---
Author Organization [facility] Address [address] [place] [address] Phone Care Team Providers Care Manager Agency Name Role Phone Brandon Dumont MD Primary Care Provider [phone] Dain Garcia MD [facility] Reason for Referral * Radiology Services (Routine) - Open Specialty Diagnoses / Procedures Referred By Contac t Referred To Contact Radiology Diagnoses Carotid aneurysm, right (HCC) Procedures US BILATERAL CAROTID DUPLEX Ginny Barker MD [address] [facility] [facility] [address] [address] Phone: tel: fax: Referral ID Status Reason Start Date Expiration Date Visits Re quested Visits Authorized [id number] Open 09/13/2024 1 1 MANAGER * Radiology Services (Routine) - Open Specialty Diagnoses / Procedures Referred By Contac t Referred To Contact Radiology Diagnoses Carotid aneurysm, right (HCC) Nonrheumatic mitral valve regurgitation Procedures ADULT TRANS THORACIC ECHO 2D COMPLETE Ginny Barker MD [address] [facility], [address] [address] Phone: tel: fax: Referral ID Status Reason Start Date Expiration Date Visits Re quested Visits Authorized [id number] Open 09/13/2024 1 1 MANAGER Reason for Visit * Reason Comments New Patient Post-Hospital Follow-up Internal carotid aneurysm Encounter Details Date Type Department Care Team (Latest Contact Info) Description 09/13/2024 11:00 AM FLOW MANAGER Office Visit [facility] - Cardiology [facility] [address] [place] [address] Ginny Barker MD 2 [facility] [place]. [address] [place] [phone] Nonrheumatic mitral valve regurgitation (Primary Dx); Carotid aneurysm, right (HCC) Discharge Disposition: Discharged to home or Selfcare Social History Tobacco Use Types Packs/Day Years Used Date Smoking Tobacco: Former Cigarettes Smokeless Tobacco: Never Tobacco Cessation:Counseling Given: Not Answered Alcohol Use Standard Drinks/Week Comments Never 0 (1 standard drink = 0.6 oz pur e alcohol) AUDIT-C Answer Date Recorded Q1: How often do you have a drink containing alc ohol? Never 07/20/2020 Average Number of Drinks Not on file 020 Frequency of Binge Drinking Not on file 07/08 Comments Unknown Sex and Gender Information Value Date Recorded Sex Assigned at Not on file Legal Sex Female 12:37 AM CDT Gender Identity Not on file Sexual Orientation Not on file documented as of this encounter Last Filed Vital Signs Vital Sign Reading Time Taken Comments Blood Pressure 130/84 09/13/2024 11:05 AM FLOW MANAGER Pulse 65 09/13/2024 11:05 AM FLOW MANAGER Temperature 36.3 ??C (97.3 ??F) 09/13/2024 11:[address] Respiratory Rate 16 09/13/2024 11:05 AM FLOW MANAGER Oxygen Saturation 98% 09/13/2024 11:05 AM FLOW MANAGER Inhaled Oxygen Concentration - - Weight 64 kg (141 lb) 09/13/2024 11:05 AM FLOW MANAGER Height 165.1 cm (5' 5 ) 09/13/2024 11:05 AM FLOW MANAGER Body Mass Index 23.46 09/13/2024 11:05 AM FLOW MANAGER documented in this encounter Patient Instructions * Patient Instructions* Ginny Barker MD - 09/13/2024 11:00 AM FLOW MANAGER 63 YO F with Pmhx of HTN, HLD went to ER with dizziness and found to be hypertensive to 180s/90s. Patient got a CT scan and showed Right internal carotid aneurysm (<2 mm outpouching), now presented to clinic for follow up. # Right internal carotid aneurysm - Too small of aneurysm and asymptomatic to intervene. - yearly carotid duplex [ ] start aspirin 81 mg qday [ ] c/w atorvastatin 20 mg qday # Moderate MR - asymptomatic [ ] echo in 1 year and follow up with Rachel. # HTN: - controlled today [ ] c/w current management [ ] Manged as per PCP # HLD - no LDL in ou system [ ] will get LDL before next visit [ ] c/w atorvastatin 20 mg qhs Rtc in 1 with Rachel. MANAGER MANAGER MANAGER documented in this encounter Progress Notes * Ginny Barker MD - 09/13/2024 11:00 AM CST CARDIOLOGY CLINIC CONSULTATION NOTE Joselyn West Age: 63 y.o. Date of : 1960 Date: 09/16/2024 Reason for consult: Carotid aneurysm Referring provider: Post ER visit HISTORY: It was my pleasure to see Ms. Joselyn West in consultation at [facility] Cardiology. She is a 63 y.o. female who presents with c/o right Internal Carotid aneurysm. 63 YO F with Pmhx of HTN, HLD went to ER with dizziness and found to be hypertensive to 180s/90s. Patient got a CT scan and showed Right internal carotid aneurysm (<2 mm outpouching), now presented to clinic for follow up. Patient was normotensive before and after the ER visit. Unclear, why she was hypertensive during the visit. Patient denies any chest pain, shortness of breath, syncope or palpitation. Patient denies any history of stroke or TIA. PAST MEDICAL HISTORY: She has a past medical history of Anxiety, GERD (gastroesophageal reflux disease), Hyperlipidemia, and Hypertension. PAST SURGICAL HISTORY: Her has a past surgical history that includes Back Surgery and Gallbladder Surgery. FAMILY HISTORY: Her family history includes No Known Problems in her father and mother. She She indicated that the status of her mother is unknown. She indicated that the status of her father is unknown. SOCIAL HISTORY: She reports that she has quit smoking. Her smoking use included cigarettes. She hasnever used smokeless tobacco. She reports that she does not drink alcohol and does not use drugs. ALLERGIES: No Known Allergies HOME MEDICATIONS: Current Outpatient Medications Medication Sig Dispense Refill albuterol (ProAir HFA) 108 (90 Base) MCG/ACT Aerosol Solution take 2 Puffs by inhalation every 4 hours as needed for Wheezing or Cough. 18 g 0 atorvastatin (LIPITOR) 20 MG Tablet Take 20 mg by mouth daily. Cyanocobalamin (VITAMIN B 12 PO) Take by mouth once a week. Wed diazePAM (VALIUM) 5 MG Tablet Take 5 mg by mouth every 12 hours as needed for Anxiety. diclofenac (VOLTAREN) 75 MG Tablet Delayed Response diclofenac sodium 75 mg tablet,delayed release Take 1 tablet twice a day by oral route . (Patient not taking: Reported on 09/13/2024) ergocalciferol (VITAMIN D) 45697 UNIT Capsule Take 50,000 Units by mouth once a week. wED famotidine (PEPCID) 40 MG Tablet Take 40 mg by mouth nightly. fluticasone (FLONASE) 50 MCG/ACT Suspension 2 Sprays by Nasal route. gabapentin (NEURONTIN) 300 MG Capsule 300 mg daily (with breakfast). PRN hydrALAZINE 25 MG Tablet Take 25 mg by mouth daily. Indications: High Blood Pressure Disorder losartan (COZAAR) 25 MG Tablet Take 25 mg by mouth daily. ondansetron (ZOFRAN-ODT) 8 MG TABLET DISPERSIBLE Take 8 mg by mouth every 8 hours as needed (nauseaand vomiting). oxybutynin (DITROPAN) 5 MG Tablet 5 mg 2 times daily. Indications: Overactive Bladder Uribel 81.6 MG Tablet venlafaxine (EFFEXOR) 75 MG Tablet Take 75 mg by mouth 3 times daily. No current facility-administered medications for this visit. REVIEW OF SYSTEMS (negative unless bolded): General: weight gain, appetite change, fatigue, weakness, fever/chills HEENT: rashes, itching, headache, acute visual changes, hearing loss, tinnitus, rhinorrhea, hoarseness, sore throat Cardiac: chest pain, palpitations, dyspnea or exertion, edema Respiratory: shortness of breath, wheezing, sputum, hemoptysis, cough Gastrointestinal: abdominal pain, nausea, vomiting, change in bowel habits, diarrhea, constipation,hematochezia, or melena Genitourinary: dysuria, hematuria hesitancy, frequency Musculoskeletal: muscle weakness, joint pain or stiffness, limited range of motion Neurologic: numbness or tingling in extremities, dizziness, lightheadedness Hematologic: easy bruising/bleeding PHYSICAL EXAM: BP 130/84 (BP Location: Right Arm, BP Position: Sitting, BP Cuff Size: Regular) Pulse 65 Temp 97.3 ??F (36.3 ??C) (Temporal) Resp 16 Ht 5' 5 (1.651 m) Wt 141 lb (64 kg) SpO2 98% BMI 23.46 kg/m?? Body mass index is 23.46 kg/m??. Chest: Clear to auscultation bilaterally Heart: Regular rate and rhythm. SI, S2 normal no murmur, clicks, rubs or gallops. There is no jugular venous distension noted. Normal carotid upstrokes without bruits Abdomen: Soft, non-tender. Normal appearance. Bowel sounds normal Extremities: Normal, atraumatic, no cyanosis or edema. No ulcers. Musculoskeletal: Normal range of motion Pulses: All pulses 2+ and symmetric. Skin: Skin color, texture, turgor normal. No rashes or lesions. DATA REVIEWED: LABS: CBC: No results for input(s): WBC , HGB , HCT , MCV , PLT in the last 72 hours. BMP: No results for input(s): NA , K , CL , CO2 , BUN , CREATININE , CALCIUM in the last 72 hours. Invalid input(s): GLU Lipid Panel: No results for input(s): LDLCALC , HDL in the last 72 hours. 2-D ECHO: I reviewed echo report from 2023 from [facility] CARDIAC STRESS TEST: none HEART CATHETERIZATION: none I personally reviewed ehco from our archives. Impression: Diagnoses and all orders for this visit: Nonrheumatic mitral valve regurgitation - ADULT TRANS THORACIC ECHO 2D COMPLETE; Future Carotid aneurysm, right (HCC) - ADULT TRANS THORACIC ECHO 2D COMPLETE; Future - US BILATERAL CAROTID DUPLEX; Future - LIPID PANEL; Future Other orders - Uribel 81.6 MG Tablet Plan: Patient Instructions 63 YO F with Pmhx of HTN, HLD went to ER with dizziness and found to be hypertensive to 180s/90s. Patient got a CT scan and showed Right internal carotid aneurysm (<2 mm outpouching), now presented to clinic for follow up. # Right internal carotid aneurysm - Too small of aneurysm and asymptomatic to intervene. - yearly carotid duplex [ ] start aspirin 81 mg qday [ ] c/w atorvastatin 20 mg qday # Moderate MR - asymptomatic [ ] echo in 1 year and follow up with Rachel. # HTN: - controlled today [ ] c/w current management [ ] Manged as per PCP # HLD - no LDL in ou system [ ] will get LDL before next visit [ ] c/w atorvastatin 20 mg qhs Rtc in 1 with Rachel. Thank you for your consultation and please do not hesitate to contact us with any question or concern. I appreciate the opportunity to participate in the care of your patients and look forward to being of service in the future as well. Shell Barker MD MPH MANAGER documented in this encounter Plan of Treatment Upcoming Encounters Date Type Department Care Team (Late st Contact Info) Description 09/13/2025 11:00 AM FLOW MANAGER Office Visit [facility] - Cardiology - [place] [address] [place] [phone] Vane Contreras APRN, [employer] PRE[employer]ION SPECIALIST [address] [place] [phone] Scheduled Orders Name Type Priority Associated Diagnoses Orde r Schedule ADULT TRANS THORACIC ECHO 2D COMPLETE Imaging Routine Carotid aneurysm, right (HCC) Nonrheumatic mitral valve regurgitation Expected: 03/13/2025, Expires: 09/13/2025 US BILATERAL CAROTID DUPLEX Imaging Routine Carotid aneurysm, right (HCC) Expected: 03/13/2025, Expires: 09/13/2025 LIPID PANEL Lab Routine Carotid aneurysm, right (HCC) Expected: 03/13/2025, Expires: 09/13/2025 documented as of this encounter Visit Diagnoses Diagnosis Nonrheumatic mitral valve regurgitation- Primary Carotid aneurysm, right (HCC) Aneurysm of artery of neck documented in this encounter Care Teams Manager Agency Relationship Specialty Start Date End Date Brandon Dumont MD [address] [facility] [address] [address] PCP - General Family Medicine 06/13/22 Dain Garcia MD [address] [place] [address] [place] [address] Consulting Physician Cardiovascular Disease - Cardiology 07/05/23 documented as of this encounter
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
--- OUTSIDE RECORDS SUMMARY | 2024-10-27 11:04 | XMS_ITS | Encounter Summary ---
Author Organization [facility] [employer] Care Team Providers Care Computer Education Professor Name Role Phone Brandon Dumont MD Primary Care Provider Encounter Details Date Type Department Care Team (Latest Contact Info) Description 06/02/2023 Travel Social History Tobacco Use Types Packs/Day Years Used Date Smoking Tobacco: Every Day Cigarettes Smokeless Tobacco: Never Alcohol Use Standard Drinks/Week Comments Never 0 [...] Exposure Response Date Recorded In the last 10 days, have yo u been in contact with someone who was confirmed or suspected to have Coronavirus/COVID-19? No / Unsure 06/02/2023 8:21 AM CDT documented as of this encounter Plan of Treatment Upcoming Encounters Date Type Department Care Team (Late st Contact Info) Description 09/13/2025 11:00 AM OPERATIONS PLANT ATTENDANT Office Visit [facility] - Cardiology - [place] [address] [place] [address] Vane Contreras APRN, PENCIL SORTER [address] [place] [address] documented as of this encounter Visit Diagnoses Not on filedocumented in this encounter Care Teams Computer Education Professor Relationship Specialty Start Date End Date Brandon Dumont MD [address] [facility] [address] [place] [address] PCP - General Family Medicine 06/13/22 documented as of this encounter
--- OUTSIDE RECORDS SUMMARY | 2024-10-27 11:04 | XMS_ITS | Encounter Summary ---
Author Organization [facility] Address [address] [place] [address] Phone Care Team Providers Care Stitcher Hand Name Role Phone Brandon Dumont MD Primary Care Provider [phone] Reason for Visit * Reason Comments Eye Problem Encounter Details Date Type Department Care Team (Late st Contact Info) Description 06/13/2022 12:31 PM CDT - 06/13/2022 1:42 PM CDT Emergency [facility] Emergency [address] [place] [id number] Bailey Gutierrez, RIDING SILKS CUSTODIAN, TOURIST HOME KEEPER [address] [place] [address] Acute bacterial conjunctivitis of right eye Discharge Disposition: Discharged to home or Selfcare Social History Tobacco Use Types Packs/Day Years Used Date Smoking Tobacco: Former Cigarettes Smokeless Tobacco: Never Alcohol Use Standard Drinks/Week Comments Never 0 (1 standard drink = 0.6 oz pur e alcohol) AUDIT-C Answer Date Recorded Q1: How often do you have a drink containing alc ohol? Never 07/20/2020 Average Number of Drinks Not on file 020 Frequency of Binge Drinking Not on file 07/08 Comments No Sex and Gender Information Value Date Recorded Sex Assigned at Not on file Legal Sex Female 12:37 AM CDT Gender Identity Not on file Sexual Orientation Not on file COVID-19 Exposure Response Date Recorded In the last 10 days, have yo u been in contact with someone who was confirmed or suspected to have Coronavirus/COVID-19? No / Unsure 06/13/2022 12:28 PM CDT documented as of this encounter Last Filed Vital Signs Vital Sign Reading Time Taken Comments Blood Pressure 129/87 06/13/2022 12:29 PM CDT Pulse 84 06/13/2022 12:29 PM CDT Temperature 37 ??C (98.6 ??F) 06/13/2022 12:29 PM CDT Respiratory Rate 18 06/13/2022 12:29 PM CDT Oxygen Saturation 97% 06/13/2022 12:29 PM CDT Inhaled Oxygen Concentration - - Weight 58.1 kg (128 lb) 06/13/2022 12:29 PM CDT Height 165.1 cm (5' 5 ) 06/13/2022 12:29 PM CDT Body Mass Index 21.3 06/13/2022 12:29 PM CDT documented in this encounter Discharge Instructions * Discharge Instructions* Bailey Gutierrez APRN, CNP - 06/13/2022 1:30 PM CDT Take medication as prescribed. Follow-up with primary care physician as needed. * Attachments The following attachments cannot be sent through Care Everywhere. * Bacterial Conjunctivitis Adult [id number] (Cuban) documented in this encounter Medications at Time of Discharge albuterol (ProAir HFA) 108 (90 Base) MCG/ACT Aerosol SolutionIndicati ons:Cough take 2 Puffs by inhalation every 4 hours as needed for Wheezing or Cough. 18 g 09/24/2021 Cyanocobalamin (VITAMIN B 12 PO) Take by mouth once a week. Wed diazePAM (VALIUM) 5 MG Tablet Take 5 mg by mouth every 12 hours as needed for Anxiety. 02/28/2017 diclofenac (VOLTAREN) 75 MG Tablet Delayed Response diclofenac sodium 75 mg tablet,delayed release Take 1 tablet twice a day by oral route . fluticasone (FLONASE) 50 MCG/ACT Suspension 2 Sprays by Nasal route. 09/30/2020 gabapentin (NEURONTIN) 300 MG Capsule 300 mg daily (with breakfast). PRN 09/03/2020 hydrALAZINE 25 MG TabletIndication s:Hypertension Take 25 mg by mouth daily. Indications: High Blood Pressure Disorder 09/04/2021 oxybutynin (DITROPAN) 5 MG TabletIndication s:Overactive Bladder 5 mg 2 times daily. Indications: Overactive Bladder 09/10/2021 venlafaxine (EFFEXOR) 75 MG Tablet Take 75 mg by mouth 3 times daily. ALPRAZolam (XANAX) 0.5 MG Tablet alprazolam 0.5 mg tablet TAKE 1 TABLET BY MOUTH TWICE DAILY NEEDED 06/02/20 23 cloNIDine (CATAPRES) 0.3 MG Tablet Take 0.3 mg by mouth daily. 06/02/20 23 cyclobenzaprine (FLEXERIL) 10 MG Tablet Take 1 Tab by mouth 3 times daily as needed for Muscle spasms. 20 Tab 12/24/2019 06/02/20 23 diazePAM (VALIUM) 5 MG Tablet Take 5 mg by mouth 3 times daily as needed. 02/28/2017 06/02/20 23 guaiFENesin-code ine (Cheratussin AC) 100-10 MG/5ML SyrupIndications :Cough Take 5 mL by mouth every 4 hours as needed for Cough. 120 mL 09/24/2021 06/02/20 23 HYDROcodone-ibup rofen (VICOPROFEN) 7.5-200 MG Tablet Take 1 Tab by mouth every 6 hours as needed for Moderate or more severe pain. 12 Tab 07/20/2020 06/02/20 23 ondansetron (ZOFRAN-ODT) 8 MG TABLET DISPERSIBLE ondansetron 8 mg disintegrating tablet 03/26/2021 06/03/20 23 oxybutynin (DITROPAN) 5 MG Tablet Take 5 mg by mouth daily. 04/16/2021 06/02/20 23 predniSONE (DELTASONE) 10 MG TabletIndication s:Cough Take 4 tab PO daily x 2 days, 3 tab PO daily x 2 days, 2 tab PO daily x 2 day, 1 tab PO daily x 2 days. 20 Tablet 09/24/2021 06/02/20 23 traMADol (ULTRAM) 50 MG Tablet Take 1 Tab by mouth every 6 hours as needed for Moderate or more severe pain. 20 Tab 12/24/2019 06/02/20 23 trimethoprim-suyapa ymyxin b (POLYTRIM) 67004-2.1 UNIT/ML-% Solution Place 1 Drop in right eye 4 times daily for 7 days. 10 mL 06/13/2022 06/20/20 22 documented as of this encounter ED Notes * Janelle Dykes RN - 06/13/2022 1:41 PM CDT Patient verbalized understanding of dc instructions. No further needs noted. * Bailey Gutierrez APRN, TOURIST HOME KEEPER - 06/13/2022 1:12 PM CDT Chief Complaint Patient presents with ??? Eye Problem Joselyn Amado is a 61 y.o. female who presents to the ED c/o right eye pain that started yesterday.Patient states that her right eye feels scratchy and is frequently watering. States that the pain is causing her to have a headache. She denies blurry vision. Denies known injury to the eye. Past Medical History Positives No date: Hypertension No current facility-administered medications for this encounter. Current Outpatient Medications Medication Sig Dispense Refill ??? albuterol (ProAir HFA) 108 (90 Base) MCG/ACT Aerosol Solution take 2 Puffs by inhalation every 4 hours as needed for Wheezing or Cough. 18 g 0 ??? ALPRAZolam (XANAX) 0.5 MG Tablet alprazolam 0.5 mg tablet TAKE 1 TABLET BY MOUTH TWICE DAILY NEEDED ??? cloNIDine (CATAPRES) 0.3 MG Tablet Take 0.3 mg by mouth daily. ??? Cyanocobalamin (VITAMIN B 12 PO) Take by mouth. ??? cyclobenzaprine (FLEXERIL) 10 MG Tablet Take 1 Tab by mouth 3 times daily as needed for Muscle spasms. 20 Tab 0 ??? diazePAM (VALIUM) 5 MG Tablet Take 5 mg by mouth. ??? diclofenac (VOLTAREN) 75 MG Tablet Delayed Response diclofenac sodium 75 mg tablet,delayed release Take 1 tablet twice a day by oral route . ??? fluticasone (FLONASE) 50 MCG/ACT Suspension 2 Sprays by Nasal route. ??? gabapentin (NEURONTIN) 300 MG Capsule gabapentin 300 mg capsule ??? guaiFENesin-codeine (Cheratussin AC) 100-10 MG/5ML Syrup Take 5 mL by mouth every 4 hours as needed for Cough. 120 mL 0 ??? hydrALAZINE 25 MG Tablet ??? HYDROcodone-ibuprofen (VICOPROFEN) 7.5-200 MG Tablet Take 1 Tab by mouth every 6 hours as needed for Moderate or more severe pain. 12 Tab 0 ??? ondansetron (ZOFRAN-ODT) 8 MG TABLET DISPERSIBLE ondansetron 8 mg disintegrating tablet ??? oxybutynin (DITROPAN) 5 MG Tablet ??? predniSONE (DELTASONE) 10 MG Tablet Take 4 tab PO daily x 2 days, 3 tab PO daily x 2 days, 2 tab PO daily x 2 day, 1 tab PO daily x 2 days. 20 Tablet 0 ??? traMADol (ULTRAM) 50 MG Tablet Take 1 Tab by mouth every 6 hours as needed for Moderate or moresevere pain. 20 Tab 0 ??? trimethoprim-polymyxin b (POLYTRIM) 68968-3.1 UNIT/ML-% Solution Place 1 Drop in right eye 4 times daily for 7 days. 10 mL 0 ??? venlafaxine (EFFEXOR) 75 MG Tablet Take 75 mg by mouth 3 times daily. No Known Allergies Past Medical History Positives Diagnosis Date ??? Hypertension Past Surgical History: Procedure Laterality Date ??? BACK SURGERY ??? GALLBLADDER SURGERY Social History Socioeconomic History ??? Marital status: Single Spouse name: Not on file ??? Number of children: Not on file ??? Years of education: Not on file ??? Highest education level: Not on file Occupational History ??? Not on file Tobacco Use ??? Smoking status: Former Smoker Packs/day: 0.50 Types: Cigarettes ??? Smokeless tobacco: Never Used Substance and Sexual Activity ??? Alcohol use: Never ??? Drug use: Never ??? Sexual activity: Not on file Other Topics Concern ??? Not on file Social History Narrative ??? Not on file BP 129/87 Pulse 84 Temp 98.6 ??F (37 ??C) (Tympanic) Resp 18 Ht 5' 5 (1.651 m) Wt 128 lb(58.1 kg) SpO2 97% BMI 21.30 kg/m?? Review of Systems Constitutional: Negative for chills and fever. HENT: Negative for congestion, ear pain, rhinorrhea and sore throat. Eyes: Positive for pain, redness and itching. Negative for discharge. Respiratory: Negative for cough, chest tightness, shortness of breath and wheezing. Cardiovascular: Negative for chest pain and palpitations. Gastrointestinal: Negative for abdominal pain, diarrhea, nausea and vomiting. Genitourinary: Negative for difficulty urinating and menstrual problem. Musculoskeletal: Negative for arthralgias and myalgias. Skin: Negative for rash and wound. Neurological: Negative for dizziness, syncope and headaches. All other systems reviewed and are negative. Physical Exam Vitals and nursing note reviewed. Constitutional: General: She is not in acute distress. Appearance: She is well-developed. She is not diaphoretic. HENT: Head: Normocephalic and atraumatic. Right Ear: External ear normal. Left Ear: External ear normal. Eyes: General: Lids are everted, no foreign bodies appreciated. Gaze aligned appropriately. No visual field deficit. Right eye: No foreign body or discharge. Intraocular pressure: Right eye pressure is 10 mmHg. Extraocular Movements: Extraocular movements intact. Conjunctiva/sclera: Conjunctivae normal. Right eye: No exudate or hemorrhage. Pupils: Pupils are equal, round, and reactive to light. Neck: Trachea: No tracheal deviation. Cardiovascular: Rate and Rhythm: Normal rate and regular rhythm. Pulses: Normal pulses. Heart sounds: Normal heart sounds. No murmur heard. Pulmonary: Effort: Pulmonary effort is normal. No respiratory distress. Breath sounds: Normal breath sounds. No wheezing or rales. Abdominal: General: Bowel sounds are normal. There is no distension. Palpations: Abdomen is soft. Tenderness: There is no abdominal tenderness. There is no guarding or rebound. Musculoskeletal: General: Normal range of motion. Cervical back: Normal range of motion. Skin: General: Skin is warm and dry. Capillary Refill: Capillary refill takes less than 2 seconds. Neurological: Mental Status: She is alert and oriented to person, place, and time. Cranial Nerves: No cranial nerve deficit. Procedures Imaging Results None Labs Reviewed - No data to display MDM Number of Diagnoses or Management Options Amount and/or Complexity of Data Reviewed Review and summarize past medical records: yes Reviewed: previous chart, nursing note and vitals Clinical Impression 1. Acute bacterial conjunctivitis of right eye The patient remained stable throughout their ED stay. My clinical impression was discussed with thepatient/family. Labs and radiology results were reviewed with them. I gave them the opportunity to ask questions, and addressed them as completely as possible given the information available at present. The therapeutic plan was discussed, advised to take medications as instructed, instructions weregiven and the importance of primary care follow up was stressed and encouraged. The patient/family voiced understanding of the plan, indications to return, and the need for follow up. Cosigned by Robert Parekh MD at 06/13/2022 5:43 PM CDT * Janelle Dykes RN - 06/13/2022 12:47 PM CDT Supplies for eye exam at bedside * Zahraa Hull RN - 06/13/2022 12:30 PM CDT Pt to ED with complaints of right eye pain that started yesterday. Pt reports her eye feels scratchy and is frequently watering. Pt states pain is causing her to have a headache. documented in this encounter Plan of Treatment Upcoming Encounters Date Type Department Care Team (Late st Contact Info) Description 09/13/2025 11:00 AM CLOTH EDGE SINGER Office Visit [facility] - Cardiology [address] [place] [address] Vane Contreras APRN, TOURIST HOME KEEPER [address] [place] [address] documented as of this encounter Visit Diagnoses Diagnosis Acute bacterial conjunctivitis of right eye- Primary documented in this encounter Administered Medications Inactive Administered Medications - up to 3 most recent administrations Medication Order MAR Action Action Date Dose Rate Site fluorescein strip 1 mg 1 mg (1 Strip), Right Eye, ONCE, 1 dose, On 06/13/22 at 1300 Given 06/13/2022 1:00 PM CDT 1 mg proparacaine (ALCAINE) 0.5 % ophthalmic solution 1 Drop 1 Drop, Right Eye, ONCE, 1 dose, On 06/13/22 at 1300 Given 06/13/2022 1:00 PM CDT 1 Drop documented in this encounter Active and Recently Administered Medications Times are shown in CDT. Scheduled Medication Order 06/11/2022 06/12/2022 06/13/2022 fluorescein strip 1 mg (COMPLETED) 1 mg (1 Strip), Right Eye, ONCE, 1 dose, On 06/13/22 at 1300 1300 (Given - Provid er: Janelle Dykes RN) proparacaine (ALCAINE) 0.5 % ophthalmic solution 1 Drop (COMPLETED) 1 Drop, Right Eye, ONCE, 1 dose, On 06/13/22 at 1300 1300 (Given - Provid er: Janelle Dykes RN) documented in this encounter Care Teams Stitcher Hand Relationship Specialty Start Date End Date Brandon Dumont MD [address] [place] [address] PCP - General Family Medicine 06/13/22 documented as of this encounter
--- OUTSIDE RECORDS SUMMARY | 2024-10-27 11:04 | XMS_ITS | Encounter Summary ---
Author Organization [facility] [employer] Care Team Providers Care Circuit Design Engineer Name Role Phone Brandon Dumont MD Primary Care Provider Encounter Details Date Type Department Care Team (Latest Contact Info) Description 10/03/2022 Travel Social History Tobacco Use Types Packs/Day [...] suspected to have Coronavirus/COVID-19? No / Unsure 10/03/2022 3:43 PM PERINATAL SOCIAL WORKER documented as of this encounter Plan of Treatment Upcoming Encounters Date Type Department Care Team (Late st Contact Info) Description 09/13/2025 11:00 AM PERINATAL SOCIAL WORKER Office Visit [facility] Group - Cardiology [facility] [address] [place] [address] Vane Contreras APRN, BOTANY PROFESSOR [address] [place] [address] documented as of this encounter Visit Diagnoses Not on filedocumented in this encounter Care Teams Circuit Design Engineer Relationship Specialty Start Date End Date Brandon Dumont MD [address] [facility] [address] [place] [address] PCP - General Family Medicine 06/13/22 documented as of this encounter
--- OUTSIDE RECORDS SUMMARY | 2024-10-27 11:04 | XMS_ITS | Encounter Summary ---
Author Organization [facility] [employer] [facility] Care Team Providers Care Warp Hanger Name Role Phone Hung Pereira APRN, CNP Primary Care Provider + Encounter Details Date Type Department Care Team (Latest Contact Info) Description 02/25/2020 Travel Social History Tobacco Use Types Packs/Day [...] have Coronavirus / COVID-19? No / Unsure 02/25/2020 12:48 PM CDT documented as of this encounter Plan of Treatment Upcoming Encounters Date Type Department Care Team (Late st Contact Info) Description 09/13/2025 11:00 AM FAMILY PRACTICE NURSE PRACTITIONER Office Visit [facility] - Cardiology - [place] [address] [place] [address] Vane Contreras APRN, CNP [address] [place] [address] documented as of this encounter Visit Diagnoses Not on filedocumented in this encounter Care Teams Warp Hanger Relationship Specialty Start Date End Date Hung Pereira APRN, CNP [address] [place] [address] PCP - General Internal Medicine 01/14/20 06/12/22 documented as of this encounter
--- OUTSIDE RECORDS SUMMARY | 2024-10-27 11:04 | XMS_ITS | Encounter Summary ---
Author Organization [facility] [employer] Care Team Providers Care Client Professional Name Role Phone Brandon Dumont MD Primary Care Provider [phone] Encounter Details Date Type Department Care Team (Latest Contact Info) Description 10/08/2022 Travel Social History Tobacco Use Types Packs/Day [...] suspected to have Coronavirus/COVID-19? No / Unsure 10/08/2022 4:22 PM ENDING MACHINE OPERATOR documented as of this encounter Plan of Treatment Upcoming Encounters Date Type Department Care Team (Late st Contact Info) Description 09/13/2025 11:00 AM ENDING MACHINE OPERATOR Office Visit [facility] Medical Group - Cardiology [facility] [place] [address] [place] [address] Vane Contreras APRN, MEDICAL DOCTOR [address] [place] [address] documented as of this encounter Visit Diagnoses Not on filedocumented in this encounter Care Teams Client Professional Relationship Specialty Start Date End Date Brandon Dumont MD [address] [place] [address] PCP - General Family Medicine 06/13/22 documented as of this encounter
--- OUTSIDE RECORDS SUMMARY | 2024-10-27 11:04 | XMS_ITS | Encounter Summary ---
Author Organization [facility] Address [address] [place] [address] Phone Care Team Providers Care Permit Review Assistant Name Role Phone Hung Pereira APRN, COMPENSATION COORDINATOR Primary Care Provider + Reason for Visit * Reason Onset Date Comments Other 02/22/2020 called to cancel without 24 hours notice Encounter Details Date Type Department Care Team (Late st Contact Info) Description 02/22/[address] [facility] POB PT/OT/Speech [address] [place] [address] Zahraa Bee, PT [place] Other (called to cancel without 24 hours notice) Social History Tobacco Use Types Packs/Day Years [...] have Coronavirus / COVID-19? No / Unsure 02/19/2020 10:16 AM CDT documented as of this encounter Miscellaneous Notes * Telephone Encounter - Zahraa Bee, PT - 02/22/2020 11:21 AM CDT Patient called to cancel PT today wtihout 24 hours notice. 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 Patient is now scheduled for her last visit on Tuesday. documented in this encounter Plan of Treatment Upcoming Encounters Date Type Department Care Team (Late st Contact Info) Description 09/13/2025 11:00 AM DIVING BOARD ASSEMBLER Office Visit [facility] - Cardiology - [address] [place] [address] Vane Contreras APRN, COMPENSATION COORDINATOR [address] [place] [address] documented as of this encounter Visit Diagnoses Not on filedocumented in this encounter Care Teams Permit Review Assistant Relationship Specialty Start Date End Date Hung Pereira, TONGUE CARRIER, COMPENSATION COORDINATOR [address] [place] [address] PCP - General Internal Medicine 01/14/20 06/12/22 documented as of this encounter
--- OUTSIDE RECORDS SUMMARY | 2024-10-27 11:04 | XMS_ITS | Encounter Summary ---
Author Organization [facility] [employer] Care Team Providers Care Company Tanker Truck Driver Name Role Phone Hung Pereira APRN, CNP Primary Care Provider + Encounter Details Date Type Department Care Team (Latest Contact Info) Description 02/19/2020 Travel Social History Tobacco Use Types Packs/Day [...] st Contact Info) Description 09/13/2025 11:00 AM CUSTOMER SUCCESS REPRESENTATIVE Office Visit [facility] Group - Cardiology - [place] [address] [place] [address] Vane Contreras APRN, CNP [address] [place] [address] documented as of this encounter Visit Diagnoses Not on filedocumented in this encounter Care Teams Company Tanker Truck Driver Relationship Specialty Start Date End Date Hung Pereira APRN, CNP [address] [place] [address] PCP - General Internal Medicine 01/14/20 06/12/22 documented as of this encounter
--- OUTSIDE RECORDS SUMMARY | 2024-10-27 11:04 | XMS_ITS | Encounter Summary ---
Author Organization [facility] [employer] Care Team Providers Care Golf Superintendent Name Role Phone Brandon Dumont MD Primary Care Provider Encounter Details Date Type Department Care Team (Latest Contact Info) Description 12/14/2022 Travel Social History Tobacco Use Types Packs/Day [...] suspected to have Coronavirus/COVID-19? No / Unsure 12/14/2022 6:55 PM BRANCH OPERATIONS SPECIALIST documented as of this encounter Plan of Treatment Upcoming Encounters Date Type Department Care Team (Late st Contact Info) Description 09/13/2025 11:00 AM BRANCH OPERATIONS SPECIALIST Office Visit [facility] Group - Cardiology [facility] [address] [place] [address] Vane Contreras APRN, EXCAVATOR OPERATOR [address] [place] [address] documented as of this encounter Visit Diagnoses Not on filedocumented in this encounter Care Teams Golf Superintendent Relationship Specialty Start Date End Date Brandon Dumont MD [address] [facility] [place] [address] PCP - General Family Medicine 06/13/22 documented as of this encounter
--- OUTSIDE RECORDS SUMMARY | 2024-10-27 11:04 | XMS_ITS | Encounter Summary ---
Author Organization [facility] Address [address] [place] [address] Phone Care Team Providers Care Word Processing Machine Operator Name Role Phone Brandon Dumont MD Primary Care Provider [phone] Reason for Visit * Reason Comments Suture Removal Encounter Details Date Type Department Care Team (Latest Contact Info) Description 10/08/2022 4:30 PM CORPORATE TECHNICAL RECRUITER Clinical [facility] - [place] [address] [place] [address] [facility] for suture removal (Primary Dx) Discharge Disposition: Discharged to home or Selfcare [...] Coronavirus/COVID-19? No / Unsure 10/08/2022 4:22 PM CORPORATE TECHNICAL RECRUITER documented as of this encounter Progress Notes * Yo Hedrick, RN - 10/08/2022 4:30 PM CST Pt presents with 3 sutures in her left thumb that needed to be removed. I removed them with success, I educated her on how to patricia the area clean ORATE TECHNICAL RECRUITER documented in this encounter Plan of Treatment Upcoming Encounters Date Type Department Care Team (Late st Contact Info) Description 09/13/2025 11:00 AM CORPORATE TECHNICAL RECRUITER Office Visit [facility] - Cardiology - [place] [place] [phone] Vane Contreras APRN, CITY DIRECTOR [address] [place] [phone] documented as of this encounter Visit Diagnoses Diagnosis Visit for suture removal- Primary Encounter for removal of sutures documented in this encounter Care Teams Word Processing Machine Operator Relationship Specialty Start Date End Date Brandon Dumont MD [address] [facility] [place] [address] PCP - General Family Medicine 06/13/22 documented as of this encounter
--- OUTSIDE RECORDS SUMMARY | 2024-10-27 11:04 | XMS_ITS | Encounter Summary ---
Author Organization [facility] Address [address] [place] [address] Phone Care Team Providers Care Mortuary Technician Name Role Phone Hung Pereira APRN, GRITTING MACHINE OPERATOR Primary Care Provider + Reason for Visit * Reason Comments Cough Encounter Details Date Type Department Care Team (Late st Contact Info) Description 09/24/2021 4:30 PM HUMAN RESOURCES ADVISOR Urgent Care Visit [facility] [place] [address] [place] [address] Tete Ellis APRN, GRITTING MACHINE OPERATOR [address] [place] [address] Bronchitis (Primary Dx); Cough Discharge Disposition: Discharged to home or Selfcare [...] have Coronavirus / COVID-19? No / Unsure 09/24/2021 4:29 PM HUMAN RESOURCES ADVISOR documented as of this encounter Last Filed Vital Signs Vital Sign Reading Time Taken Comments Blood Pressure - - Pulse 67 09/24/2021 5:40 PM HUMAN RESOURCES ADVISOR Temperature 36.5 ??C (97.7 ??F) 09/24/2021 5:40 PM CS T Respiratory Rate 20 09/24/2021 5:40 PM HUMAN RESOURCES ADVISOR Oxygen Saturation 96% 09/24/2021 5:40 PM HUMAN RESOURCES ADVISOR Inhaled Oxygen Concentration - - Weight 62.6 kg (138 lb) 09/24/2021 5:40 PM HUMAN RESOURCES ADVISOR Height - - Body Mass Index 22.96 07/20/2020 9:03 AM CDT documented in this encounter Patient Instructions * Patient Instructions* Tete Ellis APRN, MIKE - 09/24/2021 4:30 PM HUMAN RESOURCES ADVISOR Images from the original note were not included. Bronchitis, Antibiotic Treatment (Adult) Bronchitis is an infection of the air passages (bronchial tubes) in your lungs. It often occurs when you have a cold. This illness is contagious during the first few days and is spread through the air by coughing and sneezing, or by direct contact (touching the sick person and then touching your own eyes, nose, or mouth). Symptoms of bronchitis include cough with mucus (phlegm) and low-grade fever. Bronchitis usually lasts 7 to 14 days. Mild cases can be treated with simple home remedies. More severe infection is treated with an antibiotic. Home care Follow these guidelines when caring for yourself at home: ?? If your symptoms are severe, rest at home for the first 2 to 3 days. When you go back to your usual activities, don't let yourself get too tired. ?? Don't smoke. Also stay away from secondhand smoke. ?? You may use gqpm-yhd-kzphsov medicines to control fever or pain, unless another medicine was prescribed. If you have chronic liver or kidney disease or have ever had a stomach ulcer or gastrointestinal bleeding, talk with your healthcare provider before using these medicines. Also talk to your provider if you are taking medicine to prevent blood clots. Aspirin should never be given to anyone younger than 18 who is ill with a viral infection or fever. It may cause severe liver or brain damage. ?? Your appetite may be low, so a light diet is fine. Stay well hydrated by drinking 6 to 8 glassesof fluids per day. This includes water, soft drinks, sports drinks, juices, tea, or soup. Extra fluids will help loosen mucus in your nose and lungs. ?? Lmab-vzm-tcglupz cough, cold, and sore-throat medicines will not shorten the length of the illness, but they may be helpful to reduce your symptoms. Don't use decongestants if you have high blood pressure. ?? Finish all antibiotic medicine. Do this even if you are feeling better after only a few days. Follow-up care Follow up with your healthcare provider, or as advised. If you had an X-ray or ECG (electrocardiogram), a specialist will review it. You will be told of any new test results that may affect your care. If you are age 65 or older, if you smoke, or if you have a chronic lung disease or condition that affects your immune system, ask??your healthcare provider about getting a??pneumococcal vaccine and ayearly flu shot (influenza vaccine). When to seek medical advice Call your healthcare provider right away if any of these occur: ?? Fever of 100.4??F (38??C) or higher, or as directed by your healthcare provider ?? Coughing up more sputum ?? Weakness, drowsiness, headache, facial pain, ear pain, or a stiff neck Call 911 Call 911 if any of these occur. ?? Coughing up blood ?? Weakness, drowsiness, headache, or stiff neck that get worse ?? Trouble breathing, wheezing, or pain with breathing [employer] ([employer]) last reviewed this educational content on 04/07/2018 ?? [id number] [employer]. All rights reserved. This information is not intended as a substitute for professional medical care. Always follow your healthcare professional's instructions. N RESOURCES ADVISOR documented in this encounter Progress Notes * Tana Serna, RTR - 09/24/2021 4:30 PM CST Joselyn Amado complains of Dry, Cough, sinus congestion and drainage, right sided ear pain and headache x 4 days. Pt has had her covid vaccines. Pt has a hx of bronchitis. Cough This is a new problem. The current episode started in the past 7 days. The problem has been gradually worsening. The cough is non-productive. Associated symptoms include ear pain, headaches, nasal congestion and postnasal drip. Today's Review of Systems HENT: Positive for congestion, ear pain, postnasal drip and sinus pain. Respiratory: Positive for cough. Neurological: Positive for headaches. N RESOURCES ADVISOR * Quintin Dailey RMA - 09/24/2021 4:30 PM CST Per order of Tete Ellis OYSTER SORTER, GRITTING MACHINE OPERATOR: bilateral nasal swab collected for POCT COVID testing. Pttolerated well. N RESOURCES ADVISOR * Tete Ellis APRN, GRITTING MACHINE OPERATOR - 09/24/2021 4:30 PM CST Subjective: Chief complaint, ROS, and all history documented by ancillary staff, and any copy/pasted information were reviewed and verified, with additions or corrections, as appropriate. Available past family, social, medical history was reviewed. Joselyn Amado is a 60 y.o. female in the clinic for cough and wheezing. Congestion. Started in the last 4 days. Patient has a history of bronchitis. 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 She is vaccinated for COVID. She is a former smoker. Review of Systems Constitutional: Positive for fatigue. HENT: Positive for congestion. Respiratory: Positive for cough, chest tightness and wheezing. Gastrointestinal: Negative for vomiting. Objective: Physical Exam Vitals and nursing note reviewed. Constitutional: General: She is not in acute distress. HENT: Right Ear: Tympanic membrane and ear canal normal. Left Ear: Tympanic membrane and ear canal normal. Mouth/Throat: Pharynx: Posterior oropharyngeal erythema present. Cardiovascular: Rate and Rhythm: Normal rate. Pulmonary: Effort: Pulmonary effort is normal. Breath sounds: Wheezing present. Neurological: Mental Status: She is alert. Vitals: 09/24/21 1740 Pulse: 67 Resp: 20 Temp: 97.7 ??F (36.5 ??C) TempSrc: Temporal SpO2: 96% Weight: 138 lb (62.6 kg) Assessment and Plan See Diagnoses, Orders, Follow-up, and Instructions Diagnoses and all orders for this visit: Bronchitis - azithromycin (Zithromax Z-Talon) 250 MG Tablet; 2 tab(s) daily for 1 day, then 1 tab(s) daily for days 2-5. Cough - POCT SARS ANTIGEN ALIZE - predniSONE (DELTASONE) 10 MG Tablet; Take 4 tab PO daily x 2 days, 3 tab PO daily x 2 days, 2 tabPO daily x 2 day, 1 tab PO daily x 2 days. - albuterol (ProAir HFA) 108 (90 Base) MCG/ACT Aerosol Solution; take 2 Puffs by inhalation every 4hours as needed for Wheezing or Cough. - guaiFENesin-codeine (Cheratussin AC) 100-10 MG/5ML Syrup; Take 5 mL by mouth every 4 hours as needed for Cough. Other orders - diazePAM (VALIUM) 5 MG Tablet; Take 5 mg by mouth. - gabapentin (NEURONTIN) 300 MG Capsule; gabapentin 300 mg capsule - oxybutynin (DITROPAN) 5 MG Tablet - ondansetron (ZOFRAN-ODT) 8 MG TABLET DISPERSIBLE; ondansetron 8 mg disintegrating tablet - fluticasone (FLONASE) 50 MCG/ACT Suspension; 2 Sprays by Nasal route. - ALPRAZolam (XANAX) 0.5 MG Tablet; alprazolam 0.5 mg tablet TAKE 1 TABLET BY MOUTH TWICE DAILY NEEDED - diclofenac (VOLTAREN) 75 MG Tablet Delayed Response; diclofenac sodium 75 mg tablet,delayed release Take 1 tablet twice a day by oral route . - hydrALAZINE 25 MG Tablet Care as instructed on AVS If medication was prescribed it was sent to the pharmacy. Take all medication as prescribed. Do not skip a dose and take until completed. Follow up with PCP if the symptoms do not improve Go to the ER if symptoms become severe AVS from today was printed, discussed with patient/family and given to patient/family N RESOURCES ADVISOR documented in this encounter Plan of Treatment Upcoming Encounters Date Type Department Care Team (Late st Contact Info) Description 09/13/2025 11:00 AM HUMAN RESOURCES ADVISOR Office Visit [facility] - Cardiology - [place] [address] [place] [phone] Vane Contreras APRN, MIKE [address] [place] [phone] documented as of this encounter Procedures Procedure Name Priority Date/Time Associated Diagnosis Comments POCT SARS ANTIGEN ALIZE Routine 09/24/2021 6:00 PM HUMAN RESOURCES ADVISOR Cough documented in this encounter Results * POCT SARS ANTIGEN ALIZE (09/24/2021 6:00 PM HUMAN RESOURCES ADVISOR) POC SARS ANTIGEN ALIZE Negative Negative POC SARS ANTIGEN ALIZE CONTROL Car Filler Pass Swab NASAL STRUCTURE / Unknown 09/24/2021 6:00 PM HUMAN RESOURCES ADVISOR Tete Ellis APRN, CNP POINT OF CARE SILVANA TING (MANUAL) Final Result documented in this encounter Visit Diagnoses Diagnosis Bronchitis- Primary Bronchitis, not specified as acute or chronic Cough documented in this encounter Care Teams Mortuary Technician Relationship Specialty Start Date End Date Hung Pereira APRN, CNP [address] [place] [address] PCP - General Internal Medicine 01/14/20 06/12/22 documented as of this encounter
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
--- OUTSIDE RECORDS SUMMARY | 2024-10-27 11:04 | XMS_ITS | Encounter Summary ---
Author Organization [facility] [id number] Care Team Providers Care Canopy Stringer Name Role Phone Brandon Dumont MD Primary Care Provider Encounter Details Date Type Department Care Team (Latest Contact Info) Description 06/13/2022 Travel Social History Tobacco Use Types Packs/Day [...] st Contact Info) Description 09/13/2025 11:00 AM TUNNEL MAN Office Visit [facility] - Cardiology [facility] [address] [place] [phone] Vane Contreras APRN, TUG MASTER [address] [place] [address] documented as of this encounter Visit Diagnoses Not on filedocumented in this encounter Care Teams Canopy Stringer Relationship Specialty Start Date End Date Brandon Dumont MD [address] [place] [address] PCP - General Family Medicine 06/13/22 documented as of this encounter
--- OUTSIDE RECORDS SUMMARY | 2024-10-27 11:04 | XMS_ITS | Encounter Summary ---
Author Organization [facility] Address [address] [place] [address] Phone Care Team Providers Care Director Of Quality Improvement Name Role Phone Brandon Dumont MD Primary Care Provider [phone] Reason for Referral * Radiology Services (Routine) - Closed Specialty Diagnoses / Procedures Referred By Contac t Referred To Contact Radiology Diagnoses COPD exacerbation (HCC) Procedures EVENT RECORDER, 30-DAY Carmen Tracy MD [address] [place] [address] Phone: tel: fax: Referral ID Status Reason Start Date Expiration Date Visits Re quested Visits Authorized [id number] Closed 06/03/2023 1 1 Reason for Visit * Auth/Cert (Routine) Specialty Diagnoses / Procedures Referred By Contdonald t Referred To Contact Diagnoses COPD exacerbation (HCC) Viral URI with cough Carmen Tracy MD [address] [place] [address] Phone: tel: fax: Referral ID Status Reason Start Date Expiration Date Visits Re quested Visits Authorized [id number] 1 1 Encounter Details Date Type Department Care Team (Latest Contact Info) Description 06/03/2023 1:00 PM CDT - 06/03/2023 11:59 PM CDT Hospital Encounter [facility]iology [facility] [address] [place] [address] Carmen Tracy [facility] [address] [facility] [place] [address] Discharge Disposition: Discharged to home or Selfcare [...] suspected to have Coronavirus/COVID-19? No / Unsure 06/03/2023 1:09 PM CDT documented as of this encounter Medications at Time of Discharge albuterol (ProAir HFA) 108 (90 Base) MCG/ACT Aerosol SolutionIndicatio ns:Cough take 2 Puffs by inhalation every 4 hours as needed for Wheezing or Cough. 18 g 09/24/2021 atorvastatin (LIPITOR) 20 MG Tablet Take 20 [...] twice a day by oral route . ergocalciferol (VITAMIN D) 10528 UNIT Capsule Take 50,000 Units by mouth once a week. wED famotidine (PEPCID) 40 MG Tablet Take 40 mg by mouth nightly. 05/30/2023 fluticasone (FLONASE) 50 MCG/ACT Suspension 2 Sprays by Nasal route. 09/30/2020 gabapentin (NEURONTIN) 300 MG Capsule 300 mg daily (with breakfast). PRN 09/03/2020 hydrALAZINE 25 MG TabletIndications :Hypertension Take 25 mg by mouth daily. Indications: High Blood Pressure Disorder 09/04/2021 losartan (COZAAR) 25 MG Tablet Take 25 mg by mouth daily. 05/30/2023 ondansetron (ZOFRAN-ODT) 8 MG TABLET DISPERSIBLE Take 8 mg by mouth every 8 hours as needed (nausea and vomiting). oxybutynin (DITROPAN) 5 MG TabletIndications :Overactive Bladder 5 mg 2 times daily. Indications: Overactive Bladder 09/10/2021 venlafaxine (EFFEXOR) 75 MG Tablet Take 75 mg by mouth 3 times daily. doxycycline hyclate (VIBRAMYCIN) 100 MG Capsule Take 1 Capsule by mouth 2 times daily for 10 days. 20 Capsule 06/02/2023 3 ipratropium-albut eric (DUO-NEB) 0.5-2.5 (3) MG/3ML Solution 3 mL by Nebulization route every 6 hours as needed for Shortness of Breath or Wheezing for up to 90 days. 168 mL 06/03/2023 3 metoprolol tartrate (LOPRESSOR) 25 MG Tablet Take 1 Tablet by mouth 2 times daily for 90 days. 180 Tablet 06/03/2023 3 nicotine (NICODERM CQ) 14 MG/24HR PATCH 24 HR 1 Patch by Transdermal route every 24 hours for 29 days. Day 31 to Day 60 30 Patch 07/04/2023 3 nicotine (NICODERM CQ) 21 MG/24HR PATCH 24 HR 1 Patch by Transdermal route every 24 hours for 30 days. Day 1 to Day 30 30 Patch 06/03/2023 3 nicotine (NICODERM CQ) 7 MG/24HR PATCH 24 HR 1 Patch by Transdermal route every 24 hours for 30 days. Day 61 to Day 90 30 Patch 08/03/2023 3 predniSONE (DELTASONE) 10 MG Tablet Take 4 Tablets by mouth daily for 2 days, THEN 3 Tablets daily for 2 days, THEN 2 Tablets daily for 2 days, THEN 1 Tablet daily for 2 days, THEN 0.5 Tablets daily for 2 days. 21 Tablet 06/03/2023 documented as of this encounter Plan of Treatment Upcoming Encounters Date Type Department Care Team (Late st Contact Info) Description 09/13/2025 11:00 AM CATEGORY DIRECTOR Office Visit [facility] - Cardiology [facility] [address] [place] [id number] Vane Contreras APRN, PEARL FISHERMAN [address] [place] [phone] documented as of this encounter Procedures Procedure Name Priority Date/Time Associated Diagnosis Comments EVENT RECORDER, 30-DAY Routine 06/03/2023 1:44 PM CDT COPD exacerbation (HCC) documented in this encounter Results * EVENT RECORDER, 30-DAY (06/03/2023 1:44 PM CDT) Anatomical Region Laterality Modality CARDIO N/A Electrocardiogra phy Narrative 07/05/2023 10:11 AM CDT EVENT MONITOR INDICATION: Atrial fibrillation. Patient was monitored for 26 day and 5 hours. ??Underlying rhythm was sinus. ??Isolated APCs and PVCs are noted. ??Average heart rate is 83 beats per minute. ??Minimum heart rate is 44 beats per minute. ??Maximum heart rate is 170 beats per minute. ??Patient had symptoms of chest pain and others, which are associated with normal sinus rhythm and occasionally sinus tachycardia at a rate less than 110 beats per minute. IMPRESSIONS: Normal sinus rhythm. Isolated APCs and PVCs. No significant arrhythmias. Patient's symptoms as correlated above. Please correlate clinically. IJN: ??[id number]/[id number] Procedure Note Dain Garcia MD - 07/05/2023 EVENT MONITOR INDICATION: Atrial fibrillation. Patient was monitored for 26 day and 5 hours. Underlying rhythm wassinus. Isolated APCs and PVCs are noted. Average heart rate is 83 beatsper minute. Minimum heart rate is 44 beats per minute. Maximum heartrate is 170 beats per minute. Patient had symptoms of chest pain andothers, which are associated with normal sinus rhythm and occasionallysinus tachycardia at a rate less than 110 beats per minute. IMPRESSIONS: Normal sinus rhythm. Isolated APCs and PVCs. No significant arrhythmias. Patient's symptoms as correlated above. Please correlate clinically. IJN: [id number]/[id number] Carmen Burger MD IMG ECG ORDERABLES Final Resu lt documented in this encounter Visit Diagnoses Diagnosis COPD exacerbation (HCC) Obstructive chronic bronchitis with exacerbation documented in this encounter Care Teams Director Of Quality Improvement Relationship Specialty Start Date End Date Brandon Dumont MD [address] [facility] [address] [place] [address] PCP - General Family Medicine 06/13/22 documented as of this encounter
--- OUTSIDE RECORDS SUMMARY | 2024-10-27 11:04 | XMS_ITS | Clinical Summary ---
Author Organization [facility] Address [address] [place] [address] Care Team Providers Care Senior Scheduler Name Role Phone Brandon Dumont MD Primary Care Provider [phone] Dain Garcia MD Unavailable Lynne De Santiago MD Unavailable [phone] Allergies No known active allergies Medications venlafaxine (EFFEXOR) 75 MG Tablet Take 75 mg by mouth 3 times daily. Active Cyanocobalamin (VITAMIN B 12 PO) Take by mouth once a week. Wed Active diazePAM (VALIUM) 5 MG Tablet Take 5 mg by mouth every 12 hours as needed for Anxiety. 7 Active gabapentin (NEURONTIN) 300 MG Capsule 300 mg daily (with breakfast). PRN 0 Active oxybutynin (DITROPAN) 5 MG TabletIndication s:Overactive Bladder 5 mg 2 times daily. Indications: Overactive Bladder 1 Active fluticasone (FLONASE) 50 MCG/ACT Suspension 2 Sprays by Nasal route. 0 Active diclofenac (VOLTAREN) 75 MG Tablet Delayed Response diclofenac sodium 75 mg tablet,delayed release Take 1 tablet twice a day by oral route . Active hydrALAZINE 25 MG TabletIndication s:Hypertension Take 25 mg by mouth daily. Indications: High Blood Pressure Disorder 1 Active albuterol (ProAir HFA) 108 (90 Base) MCG/ACT Aerosol SolutionIndicati ons:Cough take 2 Puffs by inhalation every 4 hours as needed for Wheezing or Cough. 18 g 1 Active atorvastatin (LIPITOR) 20 MG Tablet Take 20 mg by mouth daily. Active ergocalciferol (VITAMIN D) 04325 UNIT Capsule Take 50,000 Units by mouth once a week. wED Active famotidine (PEPCID) 40 MG Tablet Take 40 mg by mouth nightly. 3 Active losartan (COZAAR) 25 MG Tablet Take 25 mg by mouth daily. 3 Active ondansetron (ZOFRAN-ODT) 8 MG TABLET DISPERSIBLE Take 8 mg by mouth every 8 hours as needed (nausea and vomiting). Active Uribel 81.6 MG Tablet 4 Active Active Problems Problem Noted Date Diagnosed Date Tobacco dependence 06/02/2023 Hyperlipidemia 06/02/2023 GERD (gastroesophageal reflux disease) 3 Anxiety 06/02/2023 Essential hypertension 08/17/2021 Tobacco use 02/28/2017 Resolved Problems Problem Noted Date Diagnosed Date Resolved Date COPD exacerbation 06/02/2023 06/03/2023 Acute respiratory failure with hypoxia 06/02/2023 06/03/2023 Atrial fibrillation with RVR 06/02/2023 06/03/2023 Acute bronchitis 06/02/2023 06/03/2023 Encounters Date Type Department Care Team Description 09/13/2024 11:00 AM MESSENGER FLOORPERSON Office Visit [facility] [address] [place] [address] Lynne Barker MD Nonrheumatic mitral valve regurgitation (Primary Dx); Carotid aneurysm, right (HCC) Discharge Disposition: Discharged to home or Selfcare 09/12/2024 Travel 09/10/2024 4:28 PM MESSENGER FLOORPERSON - 09/10/2024 9:26 PM MESSENGER FLOORPERSON Emergency [facility] [address] [place] [address] Dominique Grijalva MD Rapoff, Justin Anthony, DO Internal carotid aneurysm Discharge Disposition: Discharged to home or Selfcare 09/10/2024 Travel from Last 3 Months Immunizations Immunization Administration Dates Next Due Covid-19, Mrna, Lnp-s, Pf, 30 Mcg/0.3 Ml Dose (P fizer) 06/13/2021 TDAP Vaccine 10/03/2022 Family History Medical History Relation Name Comments No Known Problems Father No Known Problems Mother Relation Name Status Comments Father Mother [...] Comments Blood Pressure 130/84 09/13/2024 11:05 AM MESSENGER FLOORPERSON Pulse 65 09/13/2024 11:05 AM MESSENGER FLOORPERSON Temperature 36.3 ??C (97.3 ??F) 09/13/2024 11:05 AM C Respiratory Rate 16 09/13/2024 11:05 AM MESSENGER FLOORPERSON Oxygen Saturation 98% 09/13/2024 11:05 AM MESSENGER FLOORPERSON Inhaled Oxygen Concentration - - Weight 64 kg (141 lb) 09/13/2024 11:05 AM MESSENGER FLOORPERSON Height 165.1 cm (5' 5 ) 09/13/2024 11:05 AM MESSENGER FLOORPERSON Body Mass Index 23.46 09/13/2024 11:05 AM MESSENGER FLOORPERSON Plan of Treatment Upcoming Encounters Date Type Department Care Team (Late st Contact Info) Description 09/13/2025 11:00 AM MESSENGER FLOORPERSON Office Visit [facility] - [facility]iology - [facility] [address] [place] [address] Vane Contreras, APPELLATE LAW CLERK, SKILLS AUDITOR [address] [place] [address] Health Maintenance Due Date Last Done Comments Hepatitis C Virus (HCV) Screening 1962 Pap Smear 1983 Cervical Cancer Screening (CCS) 1992 HPV/Cotest 1992 Cologuard 2012 Immunochemical Fecal Occult Blood 2012 Pneumococcal Immunization (5 0+ years) (1 of 1 - PCV) 2012 Zoster Immunization (1 of 2) 2012 Influenza Immunization (#1) 2024 12/0 12/2021, 10/07/2021 SARS-COV-2 Immunization (3 - season) 2024 07/13/2021, 06/13/2021 Mammogram 09/13/2025 09/13/2023 Colonoscopy 12/15/2031 12/15/2021 Colorectal Cancer Screening 12/15/2031 Td Immunization Every 10 Yea rs (Adults With 1 Tdap) 10/03/2032 10/03/2022 Respiratory Syncytial Virus (RSV) Immunization (Adult) (1 - 1-dose 75+ series) 2037 12/15/2021 DTaP/Tdap/Td Immunization Discontinued 10/03/2022 Hepatitis B Immunization Aged Out No longer eligible based on patient's age to complete this topic Meningococcal Immunization (ACWY) Aged Out No longer eligible based on patient's age to complete this topic Pneumococcal Immunization Combined Aged Out No longer eligible based on patient's age to complete this topic Rotavirus Immunization Aged Out No lo nger eligible based on patient's age to complete this topic Procedures Procedure Name Priority Date/Time Associated Diagnosis Comments CT ANGIO HEAD AND NECK WWO CONTRAST W PP Stat with Interpretation 09/10/2024 7:[address] HEAD OR BRAIN WO CONTRAST Stat with Interpretation 09/10/2024 5:28 PM MESSENGER FLOORPERSON XR CHEST SINGLE VIEW PORTABLE STAT 09/10/2024 5:18 PM MESSENGER FLOORPERSON GOLD TOP TUBE STAT 09/10/2024 4:59 PM MESSENGER FLOORPERSON CBC WITH AUTO DIFFERENTIAL STAT 09/10/2024 4:59 PM MESSENGER FLOORPERSON EXTRA TUBES STAT 09/10/2024 4:59 PM MESSENGER FLOORPERSON PROTIME (PT) (PROTHROMBIN TIME) STAT 09/10/2024 4:59 PM MESSENGER FLOORPERSON B-TYPE NATRIURETIC PEPTIDE (BNP) STAT 09/10/2024 4:59 PM MESSENGER FLOORPERSON TROPONIN I, HIGH SENSITIVITY (HSTRP) STAT 09/10/2024 4:59 PM MESSENGER FLOORPERSON MAGNESIUM (MG) STAT 09/10/2024 4:59 PM MESSENGER FLOORPERSON CMP (COMPREHENSIVE METABOLIC PANEL) STAT 09/10/2024 4:59 PM MESSENGER FLOORPERSON COMPLETE BLOOD COUNT (CBC) WITH DIFF STAT 09/10/2024 4:59 PM MESSENGER FLOORPERSON EKG 12 LEAD STAT 09/10/2024 4:36 PM MESSENGER FLOORPERSON RHYTHM STRIP 09/10/2024 12:00 AM MESSENGER FLOORPERSON RHYTHM STRIP 09/10/2024 12:00 AM MESSENGER FLOORPERSON EKG SCAN 09/10/2024 12:00 AM MESSENGER FLOORPERSON from Last 3 Months Results * CT ANGIO HEAD AND NECK WWO CONTRAST W PP (09/10/2024 7:31 PM MESSENGER FLOORPERSON) Anatomical Region Laterality Modality vascular N/A Computed Tomogra phy 09/10/2024 9:06 PM MESSENGER FLOORPERSON Impressions 09/10/2024 9:08 PM MESSENGER FLOORPERSON IMPRESSION: 1. ??No hemodynamically significant arterial stenosis, arterial occlusion, or dissection of intracranial or cervical arterial system. 2. Focal medially directed outpouching emanating from the intracranial right internal carotid artery at the level of the clinoid process measuring 2 mm reflective of an aneurysm. 3. Focal posteriorly directed outpouching emanating from the intracranial right internal carotid artery at the level of the clinoid process measuring approximately 1 mm reflective of an aneurysm. Narrative 09/10/2024 9:08 PM MESSENGER FLOORPERSON EXAM DESCRIPTION: ?? CT ANGIO HEAD AND NECK WWO CONTRAST W PP REASON FOR STUDY: ?? High blood pressure with headaches and left sided facial numbness x today ?? TECHNIQUE: Post IV contrast scanning, thin section axial imaging from the great vessel origins through the brain. ?3D MIP images rendered on scanning unit and reviewed at time of interpretation. ?? Carotid stenosis measurements are based on NASCET criteria. Automated exposure control was used as a dose optimization technique for this examination. CONTRAST TYPE/DOSE: ?? 100mL of IOPAMIDOL 76 % IV SOLN ??injected COMPARISON: ?? Noncontrast head CT 09/10/2024 FINDINGS: CAROTID AND VERTEBRAL ARTERIES: RIGHT CAROTIDS: ?? Calcified and noncalcified plaques of the right common carotid artery adjacent to the carotid bulb resulting in proximally 20% stenosis. ??No hemodynamically significant arterial stenosis, arterial occlusion, or dissection. ??There is a focal medially directed out pouching emanating from the intracranial right internal carotid artery at the level of the clinoid process measuring 2 mm reflective of an aneurysm. LEFT CAROTIDS: ?? No hemodynamically significant arterial stenosis, arterial occlusion, or dissection . ??There is a focal posteriorly directed outpouching emanating from the intracranial right internal carotid artery at the level of the clinoid process measuring approximately 1 mm reflective of an aneurysm. RIGHT VERTEBRAL: ??Patent. No significant stenosis. No dissection. ?? No arterial occlusion, or aneurysm. LEFT VERTEBRAL: ?? Patent. No significant stenosis. No dissection. ?? No arterial occlusion, or aneurysm. AORTIC ARCH: ?? Common origin of the left common carotid artery and brachiocephalic trunk, a normal variant.. ??Bilateral subclavian arteries are patent. No dissection. INCLUDED LUNGS: ?? Bilateral pulmonary emphysema and biapical pleuroparenchymal scarring. NECK SOFT TISSUE: ?? No mass, adenopathy. OTHER: ?? The dural venous sinuses are opacified and patent. INTRACRANIAL VESSELS: [place] OF JESUS: ?? The anterior, middle, posterior cerebral arteries are all patent. ??No evidence of aneurysm or focal stenosis. POSTERIOR CIRCULATION: ?? The distal vertebral arteries are patent as is the basilar artery. No aneurysm. BRAIN: ?? No gross enhancing lesions as visualized. ?? No definitive acute intracranial abnormalities. THIS IS AN ELECTRONICALLY VERIFIED FINAL REPORT 09/10/2024 9:06 PM - Electronically signed by ??Denis Elena M.D. AT: AT D: ??09/10/2024 9:06 PM T: ??09/10/2024 9:06 PM Report ID: [id number] Reading Location: ??[id number] Procedure Note Denis Elena MD - 09/10/2024 EXAM DESCRIPTION: CT ANGIO HEAD AND NECK WWO CONTRAST W PP REASON FOR STUDY: High blood pressure with headaches and left sided facial numbness x today TECHNIQUE: Post IV contrast scanning, thin section axial imaging from the great vessel origins through the brain. 3D MIP images rendered on scanning unit and reviewed at time of interpretation. Carotid stenosis measurements are based on NASCET criteria. Automated exposure control was used as a dose optimization technique for this examination. CONTRAST TYPE/DOSE: 100mL of IOPAMIDOL 76 % IV SOLN injected COMPARISON: Noncontrast head CT 09/10/2024 FINDINGS: CAROTID AND VERTEBRAL ARTERIES: RIGHT CAROTIDS: Calcified and noncalcified plaques of the right common carotid artery adjacent to the carotid bulb resulting in proximally 20% stenosis. No hemodynamically significant arterial stenosis, arterial occlusion, or dissection. There is a focal medially directed out pouching emanating from the intracranial right internal carotid artery at the level of the clinoid process measuring 2 mm reflective of an aneurysm. LEFT CAROTIDS: No hemodynamically significant arterial stenosis, arterial occlusion, or dissection . There is a focal posteriorly directed outpouching emanating from the intracranial right internal carotid artery at the level of the clinoid process measuring approximately 1 mm reflective of an aneurysm. RIGHT VERTEBRAL: Patent. No significant stenosis. No dissection. No arterial occlusion, or aneurysm. LEFT VERTEBRAL: Patent. No significant stenosis. No dissection. No arterial occlusion, or aneurysm. AORTIC ARCH: Common origin of the left common carotid artery and brachiocephalic trunk, a normal variant.. Bilateral subclavian arteries are patent. No dissection. INCLUDED LUNGS: Bilateral pulmonary emphysema and biapical pleuroparenchymal scarring. NECK SOFT TISSUE: No mass, adenopathy. OTHER: The dural venous sinuses are opacified and patent. INTRACRANIAL VESSELS: [place] OF JESUS: The anterior, middle, posterior cerebral arteries are all patent. No evidence of aneurysm or focal stenosis. POSTERIOR CIRCULATION: The distal vertebral arteries are patent as is the basilar artery. No aneurysm. BRAIN: No gross enhancing lesions as visualized. No definitive acute intracranial abnormalities. THIS IS AN ELECTRONICALLY VERIFIED FINAL REPORT 09/10/2024 9:06 PM - Electronically signed by Denis Elena M.D. AT: AT Report ID: [id number] Reading Location: [id number] IMPRESSION: 1. No hemodynamically significant arterial stenosis, arterial occlusion, or dissection of intracranial or cervical arterial system. 2. Focal medially directed outpouching emanating from the intracranial right internal carotid artery at the level of the clinoid process measuring 2 mm reflective of an aneurysm. 3. Focal posteriorly directed outpouching emanating from the intracranial right internal carotid artery at the level of the clinoid process measuring approximately 1 mm reflective of an aneurysm. us Sascha Mcdowell DO IMG CT ORDERABLES Final Result * CT HEAD OR BRAIN WO CONTRAST (09/10/2024 5:28 PM MESSENGER FLOORPERSON) Anatomical Region Laterality Modality Head N/A Computed Tomogra phy 09/10/2024 6:27 PM MESSENGER FLOORPERSON Impressions 09/10/2024 6:29 PM MESSENGER FLOORPERSON IMPRESSION: No acute intracranial findings. Narrative 09/10/2024 6:29 PM MESSENGER FLOORPERSON EXAM DESCRIPTION: CT HEAD OR BRAIN WO CONTRAST REASON FOR STUDY: Left sided headache with left facial tingling and high blood pressure x today. Hx of HTN and smoking ?? TECHNIQUE: Axial images acquired through the brain without intravenous contrast. ??Images stored on PACS. ?? Automated exposure control was used as a dose optimization technique for this examination. COMPARISON: 12/24/2019 FINDINGS: BRAIN: ?? No hemorrhage, edema or mass effect. No recent infarct. ?Normal white matter. ? EXTRA-AXIAL SPACES: ?? No fluid collections. No masses. CALVARIUM: ?? No fracture. SINUSES/MASTOIDS: ?? No fluid or mucosal thickening. ORBITS: ?? No significant abnormality. OTHER: ?? No other significant abnormality. THIS IS AN ELECTRONICALLY VERIFIED FINAL REPORT 09/10/2024 6:27 PM - Electronically signed by ??Joshua Burnham M.D. KN: ASHLEY D: ??09/10/2024 6:27 PM T: ??09/10/2024 6:27 PM Report ID: [id number] Reading Location: ??[id number] Procedure Note Joshua Burnham MD - 09/10/2024 EXAM DESCRIPTION: CT HEAD OR BRAIN WO CONTRAST REASON FOR STUDY: Left sided headache with left facial tingling and high blood pressure x today. Hx of HTN and smoking TECHNIQUE: Axial images acquired through the brain without intravenous contrast. Images stored on PACS. Automated exposure control was used as a dose optimization technique for this examination. COMPARISON: 12/24/2019 FINDINGS: BRAIN: No hemorrhage, edema or mass effect. No recent infarct. Normal white matter. EXTRA-AXIAL SPACES: No fluid collections. No masses. CALVARIUM: No fracture. SINUSES/MASTOIDS: No fluid or mucosal thickening. ORBITS: No significant abnormality. OTHER: No other significant abnormality. THIS IS AN ELECTRONICALLY VERIFIED FINAL REPORT 09/10/2024 6:27 PM - Electronically signed by Joshua Burnham M.D. KN: ASHLEY Report ID: [id number] Reading Location: [id number] IMPRESSION: No acute intracranial findings. Dominique Grijalva MD IMG CT ORDERABLES Final Result * XR CHEST SINGLE VIEW PORTABLE (09/10/2024 5:18 PM MESSENGER FLOORPERSON) Anatomical Region Laterality Modality Chest N/A Computed Radiogr aphy 09/10/2024 6:13 PM MESSENGER FLOORPERSON Impressions 09/10/2024 6:15 PM MESSENGER FLOORPERSON IMPRESSION: No acute abnormality identified. ?? Narrative 09/10/2024 6:15 PM MESSENGER FLOORPERSON EXAM DESCRIPTION: XR CHEST SINGLE VIEW PORTABLE REASON FOR STUDY: pt c/o having elevated blood pressure for the last 3-4 days. pt states her medication doesn't seem to be lowering BP. pt is a current smoker has hx of HTN ?? TECHNIQUE: ??Portable upright AP view of the chest. COMPARISON: 06/02/2023 FINDINGS: LUNGS AND PLEURA: ??No focal opacity, large effusion, or pneumothorax identified. HEART/MEDIASTINUM: ??Trachea midline. ?? Cardiac silhouette normal in size. Mediastinal contours appear normal. BONES: ??Unremarkable. ?? CHEST WALL: ??Unremarkable. ?? UPPER ABDOMEN: ??Unremarkable. ?? THIS IS AN ELECTRONICALLY VERIFIED FINAL REPORT 09/10/2024 6:13 PM - Electronically signed by ??Ash Rocha M.D. AR: ADORE D: ??09/10/2024 6:13 PM T: ??09/10/2024 6:13 PM Report ID: [id number] Reading Location: ??[id number] Procedure Note Ash Rocha MD - 09/10/2024 EXAM DESCRIPTION: XR CHEST SINGLE VIEW PORTABLE REASON FOR STUDY: pt c/o having elevated blood pressure for the last 3-4 days. pt states her medication doesn't seem to be lowering BP. pt is a current smoker has hx of HTN TECHNIQUE: Portable upright AP view of the chest. COMPARISON: 06/02/2023 FINDINGS: LUNGS AND PLEURA: No focal opacity, large effusion, or pneumothorax identified. HEART/MEDIASTINUM: Trachea midline. Cardiac silhouette normal in size. Mediastinal contours appear normal. BONES: Unremarkable. CHEST WALL: Unremarkable. UPPER ABDOMEN: Unremarkable. THIS IS AN ELECTRONICALLY VERIFIED FINAL REPORT 09/10/2024 6:13 PM - Electronically signed by Ash Rocha M.D. AR: ADORE Report ID: [id number] Reading Location: [id number] IMPRESSION: No acute abnormality identified. Dominique Grijalva MD IMG DIAGNOSTIC ORDERABLE S Final Result * TROPONIN I, HIGH SENSITIVITY (HSTRP) (09/10/2024 4:59 PM MESSENGER FLOORPERSON) TROPONIN I, HIGH SENSITIVITY- YIN <3 <=14 ng/L 09/10/2024 5:49 PM MESSENGER FLOORPERSON [facility] Comment: High-sensitivity troponin I results are reported in ng/L making the result appear to be 1,000 times higher than the contemporary troponin I value which is reported in ng/ml. Results from Yin. Blood Venipuncture / Unknown 09/10/2024 4:59 PM MESSENGER FLOORPERSON 09/10/2024 5:05 PM MESSENGER FLOORPERSON us Dominique Grijalva MD CHEMISTRY ORDERABLES Fin al Result Performing Organization Address City/[facility]/ZIP Co de Phone Number [facility] [address] [place] [address] * Gold Top Tube (09/10/2024 4:59 PM MESSENGER FLOORPERSON) Blood No Phlebotomy Charged / Unknown 09/10/2024 4:59 PM MESSENGER FLOORPERSON 09/10/2024 5:07 PM MESSENGER FLOORPERSON us Dominique Grijalva MD CHEMISTRY ORDERABLES Fin al Result Performing Organization Address [facility] Co de Phone Number [facility] [address] [place] [address] * (ABNORMAL) CBC with Auto Differential (09/10/2024 4:59 PM MESSENGER FLOORPERSON) WBC 8.41 4.00 - 12.00 10(3)/mcL 09/10/2024 5:09 PM MESSENGER FLOORPERSON [facility] RBC 4.28 3.80 - 5.30 10(6)/mcL 09/10/2024 5:09 PM MESSENGER FLOORPERSON [facility] HEMOGLOBIN (HGB) 11.4(L) 12.0 - 15.8 g/dL 09/10/2024 5:09 PM MESSENGER FLOORPERSON [facility] HEMATOCRIT (HCT) 32.8(L) 36.0 - 47.0 % 09/10/2024 5:09 PM MESSENGER FLOORPERSON [facility] MCV 76.6(L) 82.0 - 96.0 fL 09/10/2024 5:09 PM MESSENGER FLOORPERSON [facility] MCH 26.6 26.0 - 34.0 pg 09/10/2024 5:09 PM MESSENGER FLOORPERSON [facility] MCHC 34.8 31.0 - 36.0 g/dL 09/10/2024 5:09 PM [facility] PLATELET COUNT 218 140 - 440 10(3)/[facility] 09/10/2024 5:09 PM [facility] RDW 13.6 11.8 - 15.5 % 09/10/2024 5:09 PM [facility] MPV 11.0 9.7 - 12.4 fL 09/10/2024 5:09 PM [facility] NEUTROPHILS 59.2 47.0 - 73.0 % 09/10/2024 5:09 PM [facility] LYMPHOCYTES 28.7 18.0 - 42.0 % 09/10/2024 5:09 PM [facility] MONOCYTES 5.8 4.0 - 12.0 % 09/10/2024 5:09 PM [facility] EOSINOPHILS 5.7(H) 0.0 - 5.0 % 09/10/2024 5:09 PM [facility] BASOPHILS 0.6 0.0 - 1.0 % 09/10/2024 5:09 PM [facility] ABSOLUTE NEUTROPHILS 4.98 1.60 - 7.70 10(3)/[facility] 09/10/2024 5:09 PM [facility] ABSOLUTE LYMPHOCYTES 2.41 1.30 - 3.20 10(3)/[facility] 09/10/2024 5:09 PM [facility] ABSOLUTE MONOCYTES 0.49 0.20 - 1.00 10(3)/[facility] 09/10/2024 5:09 PM [facility] ABSOLUTE EOSINOPHIL 0.48(H) 0.00 - 0.40 10(3)/[facility] 09/10/2024 5:09 PM [facility] ABSOLUTE BASOPHILS 0.05 0.00 - 0.10 10(3)/[facility] 09/10/2024 5:09 PM [facility] NRBC PER 100 WBC 0 09/10/20 5:09 PM [facility] Blood Venipuncture / Unknown 09/10/2024 4:59 PM MESSENGER FLOORPERSON 09/10/2024 5:05 PM MESSENGER FLOORPERSON us Dominique Grijalva MD HEMATOLOGY ORDERABLES Fi nal Result Performing Organization Address [facility] Co de Phone Number [facility] [address] [place] [address] * (ABNORMAL) PT / INR (09/10/2024 4:59 PM MESSENGER FLOORPERSON) PROTIME-PATIENT 11.6 11.6 - 14.8 sec 09/10/2024 5:26 PM MESSENGER FLOORPERSON [facility] INR 0.8(L) 0.9 - 1.2 09/10/2024 5:26 PM MESSENGER FLOORPERSON [facility] Comment: Therapeutic Ranges INR = 2.0-3.0: Venous thromb, atrial fib, pul embolism, tissue heart valve, ami. INR = 2.5-3.5: Mechanical heart valve Critical value for INR is >/= 4.5 Blood Venipuncture / Unknown 09/10/2024 4:59 PM MESSENGER FLOORPERSON 09/10/2024 5:06 PM MESSENGER FLOORPERSON us Dominique Grijalva MD HEMATOLOGY ORDERABLES Fi nal Result Performing Organization Address [facility] de Phone Number [facility] [address] [place] [address] * Magnesium (09/10/2024 4:59 PM MESSENGER FLOORPERSON) MAGNESIUM 1.9 1.6 - 2.6 mg/dL 09/10/2024 5:47 PM MESSENGER FLOORPERSON [facility] Blood Venipuncture / Unknown 09/10/2024 4:59 PM MESSENGER FLOORPERSON 09/10/2024 5:05 PM MESSENGER FLOORPERSON us Dominique Grijalva MD CHEMISTRY ORDERABLES Fin al Result Performing Organization Address City/[facility]/ZIP Co de Phone Number [facility] [address] [place] [address] * (ABNORMAL) CMP (09/10/2024 4:59 PM MESSENGER FLOORPERSON) SODIUM 143 136 - 145 mmol/L 09/10/2024 5:47 PM [facility] POTASSIUM 3.6 3.5 - 5.1 mmol/L 09/10/2024 5:47 PM [facility] CHLORIDE 114(H) 98 - 107 mmol/L 09/10/2024 5:47 PM [facility] CO2, VENOUS 21(L) 22 - 30 mmol/L 09/10/2024 5:47 PM [facility] ANION GAP 11.6 <18.0 mmol/L 09/10/2024 5:47 PM [facility] GLUCOSE 77 70 - 99 mg/dL 09/10/2024 5:47 PM [facility] BUN 14 10 - 20 mg/dL 09/10/2024 5:47 PM [facility] CREATININE, BLOOD 0.99 0.60 - 1.00 mg/dL 09/10/2024 5:47 PM [facility] BUN/CREATININE RATIO 14 12 - 20 ratio 09/10/2024 5:47 PM [facility] TOTAL PROTEIN 6.2(L) 6.3 - 8.2 g/dL 09/10/2024 5:47 PM [facility] ALBUMIN 3.8 3.5 - 5.0 g/dL 09/10/2024 5:47 PM [facility] A/G RATIO 1.6 1.0 - 2.2 09/10/2024 5:47 PM [facility] CALCIUM 9.0 8.7 - 10.5 mg/dL 09/10/2024 5:47 PM [facility] T BILI 0.3 0.2 - 1.2 mg/dL 09/10/2024 5:47 PM [facility] SGOT (AST) 17 5 - 34 U/L 09/10/2024 5:47 PM MESSENGER FLOORPERSON [facility] SGPT (ALT) 18 0 - 55 U/L 09/10/2024 5:47 PM MESSENGER FLOORPERSON [facility] ALKALINE PHOSPHATASE 72 40 - 150 U/L 09/10/2024 5:47 PM MESSENGER FLOORPERSON [facility] GFR, ESTIMATED >60 >=60 09/10/2024 5:47 PM MESSENGER FLOORPERSON [facility] Comment: Creatinine Clearance is the preferred criteria for selecting drug dose adjustments in renally impaired patients. ??The GFR is provided as additional pertinent clinical information. GFR is reported in mL/min/1.73 sq m. Calculation based on the Chronic Kidney Disease Epidemiology Collaboration (CKD- EPI) equation refit without adjustment for race. GFR, EST. >60 >=60 024 5:47 PM MESSENGER FLOORPERSON [facility] GFR, EST. NONAFRICAN 57(L) >=60 09/10/2024 5:47 PM MESSENGER FLOORPERSON [facility] Blood Venipuncture / Unknown 09/10/2024 4:59 PM MESSENGER FLOORPERSON 09/10/2024 5:05 PM MESSENGER FLOORPERSON us Doimnique Grijalva MD CHEMISTRY ORDERABLES Fin al Result Performing Organization Address City/[facility]/ZIP Co de Phone Number [facility] [address] [place] [address] * (ABNORMAL) B-Type Natriuretic Peptide (BNP) (09/10/2024 4:59 PM MESSENGER FLOORPERSON) B TYPE NATRIURETIC PEPTIDE 138(H) <100 pg/mL 09/10/2024 5:39 PM MESSENGER FLOORPERSON [facility] Blood Venipuncture / Unknown 09/10/2024 4:59 PM MESSENGER FLOORPERSON 09/10/2024 5:05 PM MESSENGER FLOORPERSON us Dominique Grijalva MD CHEMISTRY ORDERABLES Fin al Result [facility] [place] [address] * EKG 12 LEAD (09/10/2024 4:36 PM MESSENGER FLOORPERSON) Ventricular Rate 65 BPM EXTERNAL EKG Atrial Rate 65 BPM EXTERNAL EKG P-R Interval 172 ms EXTERNAL EKG QRS Duration 84 ms EXTERNAL EKG Q-T Duration 428 ms EXTERNAL EKG QTC CALCULATION 445 ms EXTERNAL EKG P Galt 34 degrees EXTERNAL EKG R Galt 38 degrees EXTERNAL EKG T Galt 31 degrees EXTERNAL EKG 09/10/2024 4:36 PM MESSENGER FLOORPERSON Impressions EXTERNAL EKG - 09/11/2024 3:26 PM MESSENGER FLOORPERSON Normal sinus rhythm Normal ECG When compared with ECG of 06/02/2023 No significant change was found Confirmed by LYNNE BARKER ([id number]) on 09/11/2024 3:26:16 PM Narrative Procedure Note Lynne Barker MD - 09/11/2024 IMPRESSION: Normal sinus rhythm Normal ECG When compared with ECG of 06/02/2023 No significant change was found Confirmed by LYNNE BARKER ([id number]) on 09/11/2024 3:26:16 PM us Dominique Grijalva MD IMG ECG ORDERABLES Final Result Performing Organization Address City/[facility] Co de Phone Number EXTERNAL EKG * RHYTHM STRIP (09/10/2024 12:00 AM MESSENGER FLOORPERSON) Only the most recent of2 resultswithin the time period is included. 09/10/2024 us Provider Scan IMG ECG ORDERABLES Final Result RESULTING AGENCY * EKG SCAN (09/10/2024 12:00 AM MESSENGER FLOORPERSON) 09/10/2024 us Provider Scan IMG ECG ORDERABLES Final Result RESULTING AGENCY from Last 3 Months Insurance [facility] [employer] Advance Directives * Full Code (Latest Code Status on File) Date Activated Date Inactivated Comments 06/02/2023 5:01 PM 06/03/2023 3:08 PM CPR-Full Demetrius atment: FULL ARREST: Attempt Resuscitation/CPR wit intubation and mechanical ventilation. PRE-ARREST: Use entire range of life support measures to stabilize the patient. Care Teams Senior Scheduler Relationship Specialty Start Date End Date Brandon Dumont MD [address] [facility] [address] [place] [address] PCP - General Family Medicine 06/13/22 Dain Garcia MD [address] [facility] [address] [place] [address] Consulting Physician Cardiovascular Disease - Cardiology 07/05/23 Lynne Barker MD [address] [place] [address] Consulting Physician Internal Medicine 09/19/24
--- OUTSIDE RECORDS SUMMARY | 2024-10-27 11:04 | XMS_ITS | Encounter Summary ---
Author Organization [facility] [employer] Care Team Providers Care Data Review Specialist Name Role Phone Brandon Dumont MD Primary Care Provider Dain Gacria MD Unavailable Rahul castano Encounter Details Date Type Department Care Team (Latest Contact Info) Description 09/12/2024 Travel Social History Tobacco Use Types Packs/Day [...] st Contact Info) Description 09/13/2025 11:00 AM JOINT SETTER Office Visit [facility] - [facility] - [place] [address] [place] [address] Vane Contreras APRN, SLEEP LAB TECHNICIAN [address] [place] [address] documented as of this encounter Visit Diagnoses Not on filedocumented in this encounter Care Teams Data Review Specialist Relationship Specialty Start Date End Date Brandon Dumont MD [address] [place] [address] [place] [address] PCP - General Family Medicine 06/13/22 Dain Garcia MD [address] [place] [address] [place] [address] Consulting Physician Cardiovascular Disease - Cardiology 07/05/23 documented as of this encounter
--- OUTSIDE RECORDS SUMMARY | 2024-10-27 11:04 | XMS_ITS | Encounter Summary ---
Author Organization [facility] [employer] Care Team Providers Care Field Placement Director Name Role Phone Brandon Dumont MD Primary Care Provider Dain Garcia MD Unavailable Rahul castano Encounter Details Date Type Department Care Team (Latest Contact Info) Description 09/10/2024 Travel Social History Tobacco Use Types Packs/Day [...] st Contact Info) Description 09/13/2025 11:00 AM BOILER TECHNICIAN Office Visit [facility] - [place] [address] [place] [address] Vane Contreras APRN, ENDS BREAKAGE CLERK [address] [place] [address] documented as of this encounter Visit Diagnoses Not on filedocumented in this encounter Care Teams Field Placement Director Relationship Specialty Start Date End Date Brandon Dumont MD [address] [place] [address] [place] [address] PCP - General Family Medicine 06/13/22 Dain Garcia MD [address] [place] [address] [place] [address] Consulting Physician Cardiovascular Disease - Cardiology 07/05/23 documented as of this encounter
--- OUTSIDE RECORDS SUMMARY | 2024-10-27 11:04 | XMS_ITS | Encounter Summary ---
Author Organization [facility] [employer] Care Team Providers Care Centrifugal Casting Machine Operator Name Role Phone Hung Pereira APRN, CNP Primary Care Provider + Encounter Details Date Type Department Care Team (Latest Contact Info) Description 02/14/2020 Travel Social History Tobacco Use Types Packs/Day [...] st Contact Info) Description 09/13/2025 11:00 AM TIRE AND LUBE TECHNICIAN Office Visit [facility] - Cardiology - [place] [address] [place] [address] aVne Contreras APRN, CNP [address] [place] [address] documented as of this encounter Visit Diagnoses Not on filedocumented in this encounter Care Teams Centrifugal Casting Machine Operator Relationship Specialty Start Date End Date Hung Pereira APRN, CNP [address] [place] [address] PCP - General Internal Medicine 01/14/20 06/12/22 documented as of this encounter
--- OUTSIDE RECORDS SUMMARY | 2024-10-27 11:04 | XMS_ITS | Encounter Summary ---
Author Organization [facility] Address [address] [place] [address] Phone Care Team Providers Care Social Media Campaign Manager Name Role Phone Brandon Dumont MD Primary Care Provider [phone] Encounter Details Date Type Department Care Team (Late st Contact Info) Description 06/06/2023 Telephone [facility] [address] [address] Jessica Manuel RN [place] Social History Tobacco Use Types Packs/Day Years [...] PM CDT documented as of this encounter Miscellaneous Notes * Telephone Encounter - Jessica Manuel RN - 06/06/2023 10:55 AM CDT Called patient to follow up after recent discharge from [facility] Med-Surg Unit. How are you feeling? I'm doing pretty good, no shortness of breath or heart palpitations. Did you get your medications? Yes Do you have the date of your follow up appointment? Yes Do you have a ride? Yes What else can I do for you? Nothing Instructed patient to callback with any questions or concerns. documented in this encounter Plan of Treatment Upcoming Encounters Date Type Department Care Team (Late st Contact Info) Description 09/13/2025 11:00 AM PROJECTION PRINTER Office Visit [facility] - Cardiology - [place] [address] [place] [address] Vane Contreras APRN, HELPER MARBLE FINISHER [address] [place] [address] documented as of this encounter Visit Diagnoses Not on filedocumented in this encounter Care Teams Social Media Campaign Manager Relationship Specialty Start Date End Date Brandon Dumont MD [address] [place] [address] [address] [place] [address] PCP - General Family Medicine 06/13/22 documented as of this encounter
--- OUTSIDE RECORDS SUMMARY | 2024-10-27 11:04 | XMS_ITS | Encounter Summary ---
Author Organization [facility] Address [address] [place] [address] Phone Care Team Providers Care Band Teacher Name Role Phone Brandon Dumont MD Primary Care Provider [phone] Dain Garcia MD Unavailable Unavai lable Reason for Visit * Reason Comments High Blood Pressure Encounter Details Date Type Department Care Team (Late st Contact Info) Description 09/10/2024 4:28 PM PRODUCT PICKER - 09/10/2024 9:26 PM PRODUCT PICKER Emergency [facility] Emergency [address] [place] [address] Dominique Grijalva MD [address] [place] [address] Sascha Mcdowell DO [address] [place] [address] Internal carotid aneurysm Discharge Disposition: Discharged to [...] Sign Reading Time Taken Comments Blood Pressure 138/77 09/10/2024 9:23 PM PRODUCT PICKER Pulse 48 09/10/2024 9:23 PM PRODUCT PICKER Temperature 36.3 ??C (97.3 ??F) 09/10/2024 4:38 PM CS T Respiratory Rate 13 09/10/2024 9:23 PM PRODUCT PICKER Oxygen Saturation 97% 09/10/2024 9:23 PM PRODUCT PICKER Inhaled Oxygen Concentration - - Weight 62.6 kg (138 lb) 09/10/2024 4:38 PM PRODUCT PICKER Height 165.1 cm (5' 5 ) 09/10/2024 4:38 PM PRODUCT PICKER Body Mass Index 22.96 09/10/2024 4:38 PM PRODUCT PICKER documented in this encounter Discharge Instructions * Discharge Instructions* Sascha Mcdowell, - 09/10/2024 6:43 PM PRODUCT PICKER Did you know? Antibiotics do not treat viruses, there are some antivirals that exist but they do not treat most causes of the common cold Mfpf-xin-ytaeuoo vitamin-C and zinc has been proven to help in recovery for viral illnesses. *Exercise is 1.5 more effective than any antidepressives for depression/sadness* Follow up with your doctor within 24hrs Take Medications as prescribed. Return to ER immediately at anytime if symptoms worsen/ persists, chest pain, shortness of breath, lightheadedness, loss of consciousness, numbness/weakness/tingling in your arms or legs. If patient is using abdominal or rib muscles to breathe or breathing faster than normal. Return if fevers greater than 101, continuous vomiting, inability to drink fluids or tolerate solids by mouth, dehydration, lethargy, if patient not acting normally or any other concerns you may have. Please followup with your primary care doctor or the physician you have been given here in the emergency department prior to any travel. GO CARDINALS!!! GO BLUES !!! GO YesWeAd!!! GO BATTLESideStep!!! UCT PICKER documented in this encounter Medications at Time [...] by oral route . ergocalciferol (VITAMIN D) 64357 UNIT Capsule Take 50,000 Units by mouth once a week. tue famotidine (PEPCID) 40 MG Tablet Take 40 [...] 2 times daily. Indications: Overactive Bladder 09/10/2021 Uribel 81.6 MG Tablet 09/03/2024 venlafaxine (EFFEXOR) 75 MG Tablet Take 75 mg by mouth 3 times daily. documented as of this encounter ED Notes * Anjali Anderson RN - 09/10/2024 9:24 PM CST Patient discharged. Discharge instructions and patient educational material reviewed with patient; questions and concerns addressed; patient verbalizes understanding, using teach back. Patient was given zero prescriptions. Patient discharged per ambulatory mode with self as responsible republican. SL D/C'ed with David cath intact. Pt. A&Ox4. Respirations equal and unlabored. UCT PICKER * Anjali Anderson RN - 09/10/2024 9:00 PM CST Patient is resting in room with call light at bedside. Patient informed about wait time and verbalizes understanding. Patient denies needs at this time and verbalizes understanding that RN will complete hourly rounding. UCT PICKER * Anjali Anderson RN - 09/10/2024 8:00 PM CST Patient is resting in room with call light at bedside. Patient informed about wait time and verbalizes understanding. Patient denies needs at this time and verbalizes understanding that RN will complete hourly rounding. UCT PICKER * Anjali Anderson RN - 09/10/2024 7:00 PM CST Patient is resting in room with call light at bedside. Patient informed about wait time and verbalizes understanding. Patient denies needs at this time and verbalizes understanding that RN will complete hourly rounding. UCT PICKER * Sascha Mcdowell DO - 09/10/2024 6:15 PM CSTAssociated Order(s): EKG 12 LEAD 6:15 PM PRODUCT PICKER I accepted the patient from Dr. Calderón, with the current plan to check imaging and likely dispositionas such Emergency Department Progress. (Note: only significant re-evaluation times are documented, patient's in the emergency department typically have many more re- evaluations than reasonably document) 9:25 PM PRODUCT PICKER Re-eval: Patient feeling better, no new issues, wants to go home, she is comfortable with dischargeand follow up with primary care doctor. All questions have been answered to the patient and any friends/family present currently present. Home prescription meds consideration: Medication List ASK your doctor about these medications albuterol 108 (90 Base) MCG/ACT Aers Commonly known as: ProAir HFA take 2 Puffs by inhalation every 4 hours as needed for Wheezing or Cough. atorvastatin 20 MG Tabs Commonly known as: LIPITOR diazePAM 5 MG Tabs Commonly known as: VALIUM diclofenac 75 MG Tbec Commonly known as: VOLTAREN ergocalciferol 99726 UNIT Caps Commonly known as: VITAMIN D famotidine 40 MG Tabs Commonly known as: PEPCID fluticasone 50 MCG/ACT Susp Commonly known as: FLONASE gabapentin 300 MG Caps Commonly known as: NEURONTIN hydrALAZINE 25 MG Tabs losartan 25 MG Tabs Commonly known as: COZAAR ondansetron 8 MG Tab-disperse Commonly known as: ZOFRAN-ODT oxybutynin 5 MG Tabs Commonly known as: DITROPAN venlafaxine 75 MG Tabs Commonly known as: EFFEXOR VITAMIN B 12 PO EKG 12 LEAD ED Interpretation Sascha Mcdowell DO 09/10/2024 9:13 PM EKG 12 LEAD Performed by: Sascha Mcdowell DO Authorized by: Dominique Grijalva MD CT ANGIO HEAD AND NECK WWO CONTRAST W PP Final Result IMPRESSION: 1. No hemodynamically significant arterial stenosis, [...] approximately 1 mm reflective of an aneurysm. CT HEAD OR BRAIN WO CONTRAST Final Result IMPRESSION: No acute intracranial findings. XR CHEST SINGLE VIEW PORTABLE Final Result IMPRESSION: No acute abnormality identified. CBC w/ Diff Final Result CMP Final Result Magnesium Final Result TROPONIN I, HIGH SENSITIVITY (HSTRP) Final Result B-Type Natriuretic Peptide (BNP) Final Result PT / INR Final Result Extra Tubes Final Result Labs Reviewed CMP (COMPREHENSIVE METABOLIC PANEL) - Abnormal; Notable for the following components: Result Value CHLORIDE 114 (*) CO2, VENOUS 21 (*) TOTAL PROTEIN 6.2 (*) GFR, EST. NONAFRICAN 57 (*) All other components within normal limits B-TYPE NATRIURETIC PEPTIDE (BNP) - Abnormal; Notable for the following components: B TYPE NATRIURETIC PEPTIDE 138 (*) All other components within normal limits PROTIME (PT) (PROTHROMBIN TIME) - Abnormal; Notable for the following components: INR 0.8 (*) All other components within normal limits CBC WITH AUTO DIFFERENTIAL - Abnormal; Notable for the following components: HEMOGLOBIN (HGB) 11.4 (*) HEMATOCRIT (HCT) 32.8 (*) MCV 76.6 (*) EOSINOPHILS 5.7 (*) ABSOLUTE EOSINOPHIL 0.48 (*) All other components within normal limits MAGNESIUM (MG) - Normal TROPONIN I, HIGH SENSITIVITY (HSTRP) - Normal COMPLETE BLOOD COUNT (CBC) WITH DIFF Narrative: The following orders were created for panel order CBC w/ Diff. Procedure Abnormality Status --------- ------ CBC with Auto Differential[[id number]] Abnormal Final result Please view results for these tests on the individual orders. EXTRA TUBES Narrative: The following orders were created for panel order Extra Tubes. Procedure Abnormality Status --------- ------ Gold Top Tube[[id number]] Final result Please view results for these tests on the individual orders. GOLD TOP TUBE I have reviewed the available labs, imaging, and nursing notes. EKG 12 LEAD Performed by: Sascha Mcdowell DO Authorized by: Dominique Grijalva MD EKG Interpretation [id number] Interpreted by or Rhythm: sinus Rate: normal [place]: normal Ectopy: none Conduction: normal Q Waves: none Clinical Impression: Sinus rhythm MDM: Recommended close follow up with neuro intervention for the carotid aneurysms, likely not the causeof her symptomatology today. I have had a long discussion with the patient regarding her current blood pressure readings. I have recommended that she have close follow-up with the PCP for further monitoring and potential adjustment and/or additional medications. Patient with an unremarkable workup here in the emergency department, blood pressure does not appear to be a concerning level currently.There are no concerning symptoms at this time. Disposition: dc home My clinical impression of the patient is: CLINICAL IMPRESSION: Current Outpatient Medications Medication Instructions albuterol (ProAir HFA) 108 (90 Base) MCG/ACT Aerosol Solution 2 Puffs, Inhalation, EVERY 4 HOURS PRN atorvastatin (LIPITOR) 20 mg, Oral, DAILY Cyanocobalamin (VITAMIN B 12 PO) Oral, WEEKLY, Wed
diazePAM (VALIUM) 5 mg, Oral, EVERY 12 HOURS PRN diclofenac (VOLTAREN) 75 MG Tablet Delayed Response diclofenac sodium 75 mg tablet,delayed release Take 1 tablet twice a day by oral route . ergocalciferol (VITAMIN D) 50,000 Units, Oral, WEEKLY, wED famotidine (PEPCID) 40 mg, Oral, NIGHTLY fluticasone (FLONASE) 50 MCG/ACT Suspension 2 Sprays, Nasal gabapentin (NEURONTIN) 300 mg, DAILY WITH BREAKFAST, PRN hydrALAZINE 25 mg, Oral, DAILY losartan (COZAAR) 25 mg, Oral, DAILY ondansetron (ZOFRAN-ODT) 8 mg, Oral, EVERY 8 HOURS PRN oxybutynin (DITROPAN) 5 mg, 2 TIMES DAILY venlafaxine (EFFEXOR) 75 mg, Oral, 3 TIMES DAILY 1. Hypertensive urgency 2. Internal carotid aneurysm No current facility-administered medications on file prior to encounter. Current Outpatient Medications on File Prior to Encounter Medication Sig Dispense Refill albuterol (ProAir HFA) [...] by oral route . ergocalciferol (VITAMIN D) 04817 UNIT Capsule Take 50,000 Units by mouth [...] mg 2 times daily. Indications: Overactive Bladder venlafaxine (EFFEXOR) 75 MG Tablet Take 75 mg by mouth 3 times daily. Sascha Mcdowell D.O. Emergency/Tactical Medicine Attention patients/caregivers: Secondary to the medical cares act notes and test results are now immediately released to patients and caregivers. If you are the patient referenced in this documentation or a caregiver thereof and are reading this chart, please be aware that there is medical terminology, abbreviations, and methods of communication which are intended for medical professional interpretation only. If you have questions, please contact your primary care provider. If there are specific physician's or contact information referenced in this chart do not use it as it may be out of date. Certain laboratory values or radiologic studies may have findings that appear abnormal, these were reviewed by your physician and do not require further emergent or urgent medical attention. If you have further questions about any testing performed please contact your primary care provider for clarification or further discussion. Portions of this chart have been completed by voice recognition software and may contain errors not readily picked up by the user. This would in no way affect the patient's care and is med for speed and quality of history and medical decision making.Portions of this chart may have been completed with voice recognition software and may contain slight errors unrecognizable by the users. This would in no way affect the patient's care and is meant to improve length and quality of medical decision making and history taking. UCT PICKER UCT PICKER * Anjali Anderson RN - 09/10/2024 6:00 PM CST Patient is resting in room with call light at bedside. Patient informed about wait time and verbalizes understanding. Patient denies needs at this time and verbalizes understanding that RN will complete hourly rounding. UCT PICKER * Dominique Grijalva MD - 09/10/2024 5:17 PM CST Chief Complaint Patient presents with High Blood Pressure Patient is a 63-year-old female who presents to the ED with elevated blood pressure. Patient states her blood pressure has been up for the last 2 days, highest was 180/110. She is taking her medications regularly which include losartan 25 mg by mouth daily. Patient was on Voltaren 75 mg delayed release which she states is recently changed to meloxicam. Patient states she felt tingling and numbness on the left side of the face with numbness radiating to the left shoulder. This has been going on for 2-3 days. She denies focal weakness, dizziness, nausea or vomiting. High Blood Pressure Associated symptoms: no chest pain No current facility-administered medications for this encounter. [...] taking: Reported on 09/13/2024) ergocalciferol (VITAMIN D) 62525 UNIT Capsule Take 50,000 Units by mouth [...] Allergies Past Medical History Positives Diagnosis Date Anxiety GERD (gastroesophageal reflux disease) Hyperlipidemia Hypertension Past Surgical History: Procedure Laterality Date BACK SURGERY GALLBLADDER SURGERY Social History Socioeconomic History Marital status: Single Spouse name: Not on file Number of children: Not on file Years of education: Not on file Highest education level: Not on file Occupational History Not on file Tobacco Use Smoking status: Former Types: Cigarettes Smokeless tobacco: Never Substance and Sexual Activity Alcohol use: Never Drug use: Never Sexual activity: Not on file Other Topics Concern Not on file Social History Narrative Not on file Social Determinants of Health Financial Resource Needs: Low Risk (07/16/2024) Received from [facility] Overall Financial Resource Strain (CARDIA) Difficulty of Paying Living Expenses: Not very hard Food Insecurity Needs: Food Insecurity Present (07/16/2024) Received from [facility] Hunger Vital Sign Worried About Running Out of Food in the Last Year: Never true Ran Out of Food in the Last Year: Sometimes true Transportation Needs: No Transportation Needs (07/16/2024) Received from [facility] PRAPARE - Transportation Lack of Transportation (Medical): No Lack of Transportation (Non-Medical): No Physical Activity: Insufficiently Active (07/16/2024) Received from [facility] Exercise Vital Sign Days of Exercise per Week: 2 days Minutes of Exercise per Session: 10 min Stress: Stress Concern Present (07/16/2024) Received from [facility] [place] [employer] Occup[employer] - Occupational Stress Questionnaire Feeling of Stress : To some extent Social Integration: Moderately Integrated (07/16/2024) Received from [facility] Social Connection and Isolation Panel [NHANES] Frequency of Communication with Friends and Family: More than three times a week Frequency of Social Gatherings with Friends and Family: Once a week Attends Mandaeism Services: More than 4 times per year Active Member of Clubs or Organizations: Yes Attends Club or Organization Meetings: More than 4 times per year Marital Status: Intimate Partner Violence: Not on file Housing Stability: Unknown (07/16/2024) Received from [facility] Housing Stability Vital Sign Unable to Pay for Housing in the Last Year: Patient refused Number of Times Moved in the Last Year: Not on file Homeless in the Last Year: Not on file BP 138/77 Pulse (!) 48 Temp 97.3 ??F (36.3 ??C) (Tympanic) Resp 13 Ht 5' 5 (1.651 m) Wt 138 lb (62.6 kg) SpO2 97% BMI 22.96 kg/m?? Review of Systems Constitutional: Negative for activity change. HENT: Negative. Respiratory: Negative for apnea. Cardiovascular: Negative for chest pain. Endocrine: Negative. Genitourinary: Negative. Neurological: Positive for numbness. Hematological: Negative. All other systems reviewed and are negative. Physical Exam Vitals and nursing note reviewed. Constitutional: Appearance: Normal appearance. HENT: Head: Normocephalic. Nose: Nose normal. Mouth/Throat: Mouth: Mucous membranes are moist. Eyes: Pupils: Pupils are equal, round, and reactive to light. Cardiovascular: Rate and Rhythm: Normal rate and regular rhythm. Pulses: Normal pulses. Heart sounds: Normal heart sounds. Pulmonary: Effort: Pulmonary effort is normal. Breath sounds: Normal breath sounds. Musculoskeletal: Cervical back: Normal range of motion. Skin: General: Skin is warm and dry. Capillary Refill: Capillary refill takes less than 2 seconds. Neurological: General: No focal deficit present. Mental Status: She is alert and oriented to person, place, and time. Psychiatric: Mood and Affect: Mood normal. Procedures No results found for this or any previous visit (from the past 24 hour(s)). Imaging Results CT ANGIO HEAD AND NECK WWO CONTRAST Wesley FLEMING (Final result) Result time 09/10/24 21:08:45 Final result by Denis Elena MD (09/10/24 21:08:45) Impression: IMPRESSION: 1. No hemodynamically significant arterial stenosis, [...] approximately 1 mm reflective of an aneurysm. Narrative: EXAM DESCRIPTION: CT ANGIO HEAD AND NECK [...] sinuses are opacified and patent. INTRACRANIAL VESSELS: [place] OF JESUS: The anterior, middle, posterior cerebral arteries are all patent. No evidence of aneurysm or focal stenosis. POSTERIOR CIRCULATION: The distal vertebral arteries are patent as is the basilar artery. No aneurysm. BRAIN: No gross enhancing lesions as visualized. No definitive acute intracranial abnormalities. THIS IS AN ELECTRONICALLY VERIFIED FINAL REPORT 09/10/2024 9:06 PM - Electronically signed by Denis Elena M.D. AT: LIUDMILA Report ID: [id number] Reading Location: [id number] CT HEAD OR BRAIN WO CONTRAST (Final result) Result time 09/10/24 18:29:36 Final result by Joshua Burnham MD (09/10/24 18:29:36) Impression: IMPRESSION: No acute intracranial findings. Narrative: EXAM DESCRIPTION: CT HEAD OR BRAIN WO [...] Joshua Burnham M.D. KN: ASHLEY Report ID: [id number] Reading Location: [id number] XR CHEST SINGLE VIEW PORTABLE (Final result) Result time 09/10/24 18:15:47 Final result by Ash Rocha MD (09/10/24 18:15:47) Impression: IMPRESSION: No acute abnormality identified. Narrative: EXAM DESCRIPTION: XR CHEST SINGLE VIEW PORTABLE [...] Ash Rocha M.D. AR: ADORE Report ID: [id number] Reading Location: [place] [address] Medical Decision Making Clinical Impression 1. Hypertensive urgency 2. Internal carotid aneurysm Disposition: Discharge Dominique Grijalva MD UCT PICKER * Anjali Anderson RN - 09/10/2024 5:00 PM CST Patient is resting in room with call light at bedside. Patient informed about wait time and verbalizes understanding. Patient denies needs at this time and verbalizes understanding that RN will complete hourly rounding. UCT PICKER * Anjali Anderson RN - 09/10/2024 4:57 PM CST Pt. C/o chest rated at a 8/10 that is radiating to her left shoulder. Pt. Also c/o numbness and tingling in her left shoulder and face. ERP Dr. Grijalva aware. Orders placed and completed. VSS. Pt. A&Ox4. Will continue to monitor. UCT PICKER * Marci Mooney RN - 09/10/2024 4:38 PM CST Pt arrives to triage complaining of elevated BP that has been going on since Tuesday. Pt reports that she has been increasing her dose of losartan for the past 3 days with no change in her pressure. Pt's BP prior to coming to ED was a systolic of 180. Pt has been also having a left sided headache and feels her bilateral feet or swollen. UCT PICKER * Anjali Anderson RN - 09/10/2024 4:36 PM CST Pt to room 9 from triage. No changes, see triage note. Assessments as noted. Pt informed of wait times and plan of care, verbalizes understanding. Denies further needs at this time. Call light withinreach. UCT PICKER documented in this encounter Plan of Treatment Upcoming Encounters Date Type Department Care Team (Late st Contact Info) Description 09/13/2025 11:00 AM PRODUCT PICKER Office Visit [facility] - Cardiology - [place] [address] [facility] [place] [address] Vane Contreras APRN, CARDIAC CATH LAB RADIOLOGY TECHNOLOGIST [address] [place] [address] documented as of this encounter Procedures Procedure Name Priority Date/Time Associated Diagnosis Comments CT ANGIO HEAD AND NECK WWO CONTRAST W PP Stat with Interpretation 09/10/2024 7:[address] HEAD OR BRAIN WO CONTRAST Stat with Interpretation 09/10/2024 5:28 PM PRODUCT PICKER XR CHEST SINGLE VIEW PORTABLE STAT 09/10/2024 5:18 PM PRODUCT PICKER EXTRA TUBES STAT 09/10/2024 4:59 PM PRODUCT PICKER TROPONIN I, HIGH SENSITIVITY (HSTRP) STAT 09/10/2024 4:59 PM PRODUCT PICKER GOLD TOP TUBE STAT 09/10/2024 4:59 PM PRODUCT PICKER CBC WITH AUTO DIFFERENTIAL STAT 09/10/2024 4:59 PM PRODUCT PICKER PROTIME (PT) (PROTHROMBIN TIME) STAT 09/10/2024 4:59 PM PRODUCT PICKER MAGNESIUM (MG) STAT 09/10/2024 4:59 PM PRODUCT PICKER CMP (COMPREHENSIVE METABOLIC PANEL) STAT 09/10/2024 4:59 PM PRODUCT PICKER COMPLETE BLOOD COUNT (CBC) WITH DIFF STAT 09/10/2024 4:59 PM PRODUCT PICKER B-TYPE NATRIURETIC PEPTIDE (BNP) STAT 09/10/2024 4:59 PM PRODUCT PICKER EKG 12 LEAD STAT 09/10/2024 4:36 PM PRODUCT PICKER RHYTHM STRIP 09/10/2024 12:00 AM PRODUCT PICKER RHYTHM STRIP 09/10/2024 12:00 AM PRODUCT PICKER EKG SCAN 09/10/2024 12:00 AM PRODUCT PICKER documented in this encounter Results * CT ANGIO HEAD AND NECK WWO CONTRAST W PP (09/10/2024 7:31 PM PRODUCT PICKER) Anatomical Region Laterality Modality vascular N/A Computed Tomogra phy 09/10/2024 9:06 PM PRODUCT PICKER Impressions 09/10/2024 9:08 PM PRODUCT PICKER IMPRESSION: 1. ??No hemodynamically significant arterial stenosis, [...] of an aneurysm. Narrative 09/10/2024 9:08 PM PRODUCT PICKER EXAM DESCRIPTION: ?? CT ANGIO HEAD AND [...] sinuses are opacified and patent. INTRACRANIAL VESSELS: [place] OF JESUS: ?? The anterior, middle, posterior [...] PM T: ??09/10/2024 9:06 PM Report ID: [id number] Reading Location: ??[id number] Procedure Note Denis Elena MD - 09/10/2024 [...] sinuses are opacified and patent. INTRACRANIAL VESSELS: [place] OF JESUS: The anterior, middle, posterior cerebral [...] Denis Elena M.D. AT: AT Report ID: [id number] Reading Location: [place] [address] IMPRESSION: 1. No hemodynamically significant arterial stenosis, [...] OR BRAIN WO CONTRAST (09/10/2024 5:28 PM PRODUCT PICKER) Anatomical Region Laterality Modality Head N/A Computed Tomogra phy 09/10/2024 6:27 PM PRODUCT PICKER Impressions 09/10/2024 6:29 PM PRODUCT PICKER IMPRESSION: No acute intracranial findings. Narrative 09/10/2024 6:29 PM PRODUCT PICKER EXAM DESCRIPTION: CT HEAD OR BRAIN WO [...] PM T: ??09/10/2024 6:27 PM Report ID: [id number] Reading Location: ??[id number] Procedure Note Joshua Burnham MD - 09/10/2024 [...] Joshua Burnham M.D. KN: ASHLEY Report ID: [id number] Reading Location: [id number] IMPRESSION: No acute intracranial findings. Dominique Grijalva MD IMG CT ORDERABLES Final Result * XR CHEST SINGLE VIEW PORTABLE (09/10/2024 5:18 PM PRODUCT PICKER) Anatomical Region Laterality Modality Chest N/A Computed Radiogr aphy 09/10/2024 6:13 PM PRODUCT PICKER Impressions 09/10/2024 6:15 PM PRODUCT PICKER IMPRESSION: No acute abnormality identified. ?? Narrative 09/10/2024 6:15 PM PRODUCT PICKER EXAM DESCRIPTION: XR CHEST SINGLE VIEW PORTABLE [...] PM T: ??09/10/2024 6:13 PM Report ID: [id number] Reading Location: ??[id number] Procedure Note Ash Rocha MD - 09/10/2024 [...] Ash Rocha M.D. AR: ADORE Report ID: [id number] Reading Location: [id number] IMPRESSION: No acute abnormality identified. Dominique Grijalva MD IMG DIAGNOSTIC ORDERABLE S Final Result * Gold Top Tube (09/10/2024 4:59 PM PRODUCT PICKER) Blood No Phlebotomy Charged / Unknown 09/10/2024 4:59 PM PRODUCT PICKER 09/10/2024 5:07 PM PRODUCT PICKER Dominique Grijalva MD CHEMISTRY ORDERABLES Fin al Result [facility] [address] [place] [address] * (ABNORMAL) CBC with Auto Differential (09/10/2024 4:59 PM PRODUCT PICKER) WBC 8.41 4.00 - 12.00 10(3)/mcL 09/10/2024 5:09 PM PRODUCT PICKER [facility] RBC 4.28 3.80 - 5.30 10(6)/mcL 09/10/2024 5:09 PM [facility] HEMOGLOBIN (HGB) 11.4(L) 12.0 - 15.8 g/dL 09/10/2024 5:09 PM [facility] HEMATOCRIT (HCT) 32.8(L) 36.0 - 47.0 % 09/10/2024 5:09 PM [facility] MCV 76.6(L) 82.0 - 96.0 fL 09/10/2024 5:09 PM [facility] MCH 26.6 26.0 - 34.0 pg 09/10/2024 5:09 PM [facility] MCHC 34.8 31.0 - 36.0 g/dL 09/10/2024 5:09 PM [facility] PLATELET COUNT 218 140 - 440 10(3)/mcL 09/10/2024 5:09 PM [facility] RDW 13.6 11.8 - 15.5 % 09/10/2024 5:09 PM [facility] MPV 11.0 9.7 - 12.4 fL 09/10/2024 5:09 PM [facility] NEUTROPHILS 59.2 47.0 - 73.0 % 09/10/2024 5:09 PM [facility] LYMPHOCYTES 28.7 18.0 - 42.0 % 09/10/2024 5:09 PM [facility] MONOCYTES 5.8 4.0 - 12.0 % 09/10/2024 5:09 PM [facility] EOSINOPHILS 5.7(H) 0.0 - 5.0 % 09/10/2024 5:09 PM [facility] BASOPHILS 0.6 0.0 - 1.0 % 09/10/2024 5:09 PM [facility] ABSOLUTE NEUTROPHILS 4.98 1.60 - 7.70 10(3)/mcL 09/10/2024 5:09 PM [facility] ABSOLUTE LYMPHOCYTES 2.41 1.30 - 3.20 10(3)/mcL 09/10/2024 5:09 PM [facility] ABSOLUTE MONOCYTES 0.49 0.20 - 1.00 10(3)/mcL 09/10/2024 5:09 PM [facility] ABSOLUTE EOSINOPHIL 0.48(H) 0.00 - 0.40 10(3)/mcL 09/10/2024 5:09 PM [facility] ABSOLUTE BASOPHILS 0.05 0.00 - 0.10 10(3)/[facility] 09/10/2024 5:09 PM [facility] NRBC PER 100 WBC 0 09/10/20 5:09 PM [facility] Blood Venipuncture / Unknown 09/10/2024 4:59 PM [facility] 09/10/2024 5:05 PM [facility] Dominique Grijalva MD HEMATOLOGY ORDERABLES Fi nal Result Performing Organization Address City/[facility] Co de Phone Number [facility] [address] [place] [address] * (ABNORMAL) PT / INR (09/10/2024 4:59 PM [facility]) PROTIME-PATIENT 11.6 11.6 - 14.8 sec 09/10/2024 5:26 PM [facility] INR 0.8(L) 0.9 - 1.2 09/10/2024 5:26 PM [facility] Comment: Therapeutic Ranges INR = 2.0-3.0: Venous thromb, atrial fib, pul embolism, tissue heart valve, ami. INR = 2.5-3.5: Mechanical heart valve Critical value for INR is >/= 4.5 Blood Venipuncture / Unknown 09/10/2024 4:59 PM [facility] 09/10/2024 5:06 PM [facility] [facility] Dominique Grijalva MD HEMATOLOGY ORDERABLES Fi nal Result [facility] [address] [place] [address] * (ABNORMAL) B-Type Natriuretic Peptide (BNP) (09/10/2024 4:59 PM [facility]) [facility] B TYPE NATRIURETIC PEPTIDE 138(H) <100 pg/mL 09/10/2024 5:39 PM [facility] [facility] Blood Venipuncture / Unknown 09/10/2024 4:59 PM [facility] [facility] 09/10/2024 5:05 PM [employer] [facility] Dominique Grijalva MD CHEMISTRY ORDERABLES Fin al Result Performing Organization Address City/[facility]/ZIP Co de Phone Number [facility] [address] [place] [address] * TROPONIN I, HIGH SENSITIVITY (HSTRP) (09/10/2024 4:59 PM [facility]) [facility] TROPONIN I, HIGH SENSITIVITY- YIN <3 <=14 ng/L 09/10/2024 5:49 PM [facility] Comment: High-sensitivity troponin I results are reported in ng/L making the result appear to be 1,000 times higher than the contemporary troponin I value which is reported in ng/ml. Results from Yin. Blood Venipuncture / Unknown 09/10/2024 4:59 PM [facility] 09/10/2024 5:05 PM [employer] [facility] Dominique Grijalva MD CHEMISTRY ORDERABLES Fin al Result [facility] [address] [place] [address] * Magnesium (09/10/2024 4:59 PM [facility]) [facility] MAGNESIUM 1.9 1.6 - 2.6 mg/dL 09/10/2024 5:47 PM [facility] [facility] Blood Venipuncture / Unknown 09/10/2024 4:59 PM [facility] [facility] 09/10/2024 5:05 PM [facility] [facility] us Dominique Grijalva MD CHEMISTRY ORDERABLES Fin al Result [facility] [address] [place] [address] * (ABNORMAL) CMP (09/10/2024 4:59 PM [facility]) SODIUM 143 136 - 145 mmol/L 09/10/2024 5:47 PM [facility] POTASSIUM 3.6 3.5 - 5.1 mmol/L 09/10/2024 5:47 PM [facility] CHLORIDE 114(H) 98 - 107 mmol/L 09/10/2024 5:47 PM [facility] CO2, VENOUS 21(L) 22 - 30 mmol/L 09/10/2024 5:47 PM [facility] [facility] ANION GAP 11.6 <18.0 mmol/L 09/10/2024 5:47 PM [facility] [facility] GLUCOSE 77 70 - 99 mg/dL 09/10/2024 5:47 PM [facility] [facility] BUN 14 10 - 20 mg/dL 09/10/2024 5:47 PM [facility] CREATININE, BLOOD 0.99 0.60 - 1.00 mg/dL 09/10/2024 5:47 PM [facility] BUN/CREATININE RATIO 14 12 - 20 ratio 09/10/2024 5:47 PM [facility] TOTAL PROTEIN 6.2(L) 6.3 - 8.2 g/dL 09/10/2024 5:47 PM [facility] ALBUMIN 3.8 3.5 - 5.0 g/dL 09/10/2024 5:47 PM [facility] A/G RATIO 1.6 1.0 - 2.2 09/10/2024 5:47 PM [facility] CALCIUM 9.0 8.7 - 10.5 mg/dL 09/10/2024 5:47 PM [facility] T BILI 0.3 0.2 - 1.2 mg/dL 09/10/2024 5:47 PM [facility] SGOT (AST) 17 5 - 34 U/L 09/10/2024 5:47 PM [facility] SGPT (ALT) 18 0 - 55 U/L 09/10/2024 5:47 PM [facility] ALKALINE PHOSPHATASE 72 40 - 150 U/L 09/10/2024 5:47 PM [facility] GFR, ESTIMATED >60 >=60 09/10/2024 5:47 PM [facility] [facility] Comment: Creatinine Clearance is the preferred criteria for selecting drug dose adjustments in renally impaired patients. ??The GFR is provided as additional pertinent clinical information. GFR is reported in mL/min/1.73 sq m. Calculation based on the Chronic Kidney Disease Epidemiology Collaboration (CKD- EPI) equation refit without adjustment for race. GFR, EST. >60 >=60 024 5:47 PM [facility] GFR, EST. NONAFRICAN 57(L) >=60 09/10/2024 5:47 PM [facility] Blood Venipuncture / Unknown 09/10/2024 4:59 PM [facility] 09/10/2024 5:05 PM [facility] [facility] us Dominique Grijalva MD CHEMISTRY ORDERABLES Fin al Result [facility] [address] [place] [address] * EKG 12 LEAD (09/10/2024 4:36 PM [facility]) Ventricular Rate 65 BPM EXTERNAL EKG Atrial Rate 65 BPM EXTERNAL EKG P-R Interval 172 ms EXTERNAL EKG QRS Duration 84 ms EXTERNAL EKG Q-T Duration 428 ms EXTERNAL EKG QTC CALCULATION 445 ms EXTERNAL EKG P [place] 34 degrees EXTERNAL EKG R [place] 38 degrees EXTERNAL EKG T [place] 31 degrees EXTERNAL EKG 09/10/2024 4:36 PM [facility] Impressions EXTERNAL EKG - 09/11/2024 3:26 PM [facility] Normal sinus rhythm Normal ECG When compared with ECG of 06/02/2023 No significant change was found Confirmed by LYNNE BARKER ([id number]) on 09/11/2024 3:26:16 PM Narrative Procedure Note Lynne Barker MD - 09/11/2024 IMPRESSION: Normal sinus rhythm Normal ECG When compared with ECG of 06/02/2023 No significant change was found Confirmed by LYNNE BARKER ([id number]) on 09/11/2024 3:26:16 PM us Dominique Grijalva MD IMG ECG ORDERABLES Final Result Performing Organization Address City/[facility] Co de Phone Number EXTERNAL EKG * RHYTHM STRIP (09/10/2024 12:00 AM [facility]) Only the most recent of2 resultswithin the time period is included. 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 Scheduled Medication Order 09/08/2024 09/09/2024 09/10/2024 iopamidol (ISOVUE-370) 76 % injection 100 mL (COMPLETED) 100 mL, Intravenous, ONCE, 1 dose, On 09/10/24 at 1930 1922 (Given - Provid er: Ash Edwards, RT(R) (CT)) documented in this encounter Care Teams Band Teacher Relationship Specialty Start Date End Date Brandon Dumont MD [address] [place] [address] [place] [address] PCP - General Family Medicine 06/13/22 Dain Garcia MD [address] [place] [address] [place] [address] Consulting Physician Cardiovascular Disease - Cardiology 07/05/23 documented as of this encounter
--- OUTSIDE RECORDS SUMMARY | 2024-10-27 11:04 | XMS_ITS | Encounter Summary ---
Author Organization [facility] Address [address] [place] [address] Phone Care Team Providers Care Dance Therapist Name Role Phone Brandon Dumont MD Primary Care Provider [phone] Reason for Visit * Reason Comments Laceration Encounter Details Date Type Department Care Team (Late st Contact Info) Description 10/03/2022 3:47 PM MINE TECHNICIAN - 10/03/2022 6:31 PM MINE TECHNICIAN Emergency [facility] [address] [place] [address] Laceration of left thumb Discharge Disposition: Discharged to home or Selfcare [...] Coronavirus/COVID-19? No / Unsure 10/03/2022 3:43 PM MINE TECHNICIAN documented as of this encounter Last Filed Vital Signs Vital Sign Reading Time Taken Comments Blood Pressure 116/80 10/03/2022 6:22 PM MINE TECHNICIAN Pulse 88 10/03/2022 6:22 PM MINE TECHNICIAN Temperature 36.4 ??C (97.5 ??F) 10/03/2022 6:22 PM CS T Respiratory Rate 14 10/03/2022 6:22 PM MINE TECHNICIAN Oxygen Saturation 98% 10/03/2022 6:22 PM MINE TECHNICIAN Inhaled Oxygen Concentration - - Weight 58.1 kg (128 lb) 10/03/2022 3:44 PM MINE TECHNICIAN Height 165.1 cm (5' 5 ) 10/03/2022 3:44 PM MINE TECHNICIAN Body Mass Index 21.3 10/03/2022 3:44 PM MINE TECHNICIAN documented in this encounter Discharge Instructions * Attachments The following attachments cannot be sent through Care Everywhere. * Laceration Care Adult [id number] (Greek) documented in this encounter Medications at Time [...] severe pain. 20 Tab 12/24/2019 06/02/20 23 documented as of this encounter ED Notes * Marci Mooney RN - 10/03/2022 6:30 PM CST Pt's hand bandaged with gauze and oral. Pt given extra gauze and tape for home. Patient discharged. Discharge instructions and patient educational material reviewed with patient; questions and concerns addressed; patient verbalizes understanding, using teach back. Patient was given 0 prescriptions. Patient discharged per ambulatory mode with self as responsible green party. TECHNICIAN * Marci Mooney RN - 10/03/2022 6:01 PM CST Provider at bedside numbing pt and starting to suture. Pt tolerating well. TECHNICIAN * Marci Mooney RN - 10/03/2022 5:55 PM CST Pt medicated per provider orders. Pt educated on intended effects and side effects of medication and verbalized understanding, able to provide teach back of education. TECHNICIAN * Abisai Holden PAC - 10/03/2022 5:50 PM CSTAssociated Order(s): Laceration Repair Images from the original note were not included. Chief Complaint Patient presents with ??? Laceration Joselyn Amado is a 61 y.o. female who presents to the ED c/o laceration of left thumb over right MCP joint onset last evening while peeling potatoes. Patient used glue at home but wound would not stay closed. No other areas of injury. Td is unknown. No current facility-administered medications for this encounter. [...] file Tobacco Use ??? Smoking status: Former Packs/day: 0.50 Types: Cigarettes ??? Smokeless tobacco: Never Substance and Sexual Activity ??? Alcohol use: Never ??? Drug use: Never ??? Sexual activity: Not on file Other Topics Concern ??? Not on file Social History Narrative ??? Not on file BP 120/82 Pulse 86 Temp 97.1 ??F (36.2 ??C) (Tympanic) Resp 16 Ht 5' 5 (1.651 m) Wt 128 lb (58.1 kg) SpO2 97% BMI 21.30 kg/m?? Review of Systems Constitutional: Negative for chills, fatigue and fever. HENT: Negative for congestion and sore throat. Respiratory: Negative for cough, chest tightness, shortness of breath and wheezing. Cardiovascular: Negative for chest pain. Gastrointestinal: Negative for abdominal pain, constipation, diarrhea, nausea and vomiting. Genitourinary: Negative for dysuria, frequency and hematuria. Musculoskeletal: Positive for arthralgias (right thumb). Negative for back pain. Skin: Positive for wound. Negative for color change. Neurological: Negative for dizziness, light-headedness and headaches. Physical Exam Vitals and nursing note reviewed. Constitutional: General: She is not in acute distress. Appearance: She is well-developed. She is not diaphoretic. HENT: Head: Normocephalic and atraumatic. Eyes: Pupils: Pupils are equal, round, and reactive to light. Neck: Thyroid: No thyromegaly. Cardiovascular: Rate and Rhythm: Normal rate and regular rhythm. Heart sounds: Normal heart sounds. No murmur heard. Pulmonary: Effort: Pulmonary effort is normal. No respiratory distress. Breath sounds: Normal breath sounds. No wheezing, rhonchi or rales. Abdominal: General: Bowel sounds are normal. There is no distension. Palpations: Abdomen is soft. Tenderness: There is no abdominal tenderness. Musculoskeletal: General: No tenderness. Normal range of motion. Right hand: Laceration present. Hands: Cervical back: Normal range of motion and neck supple. Skin: General: Skin is warm and dry. Coloration: Skin is not pale. Findings: No erythema or rash. Neurological: Mental Status: She is alert and oriented to person, place, and time. Cranial Nerves: No cranial nerve deficit. Psychiatric: Behavior: Behavior normal. Laceration Repair Performed by: Abisai Holden PAC Authorized by: Abisai Holden PAC Consent: Verbal consent obtained. Risks and benefits: risks, benefits and alternatives were discussed Consent given by: patient Patient understanding: patient states understanding of the procedure being performed Patient consent: the patient's understanding of the procedure matches consent given Procedure consent: procedure consent matches procedure scheduled Relevant documents: relevant documents present and verified Test results: test results available and properly labeled Site marked: the operative site was marked Patient identity confirmed: verbally with patient and arm band Body area: upper extremity Location details: left thumb Laceration length: 1 cm Foreign bodies: no foreign bodies Tendon involvement: none Vascular damage: no Anesthesia: digital block Anesthesia: Anesthetic total: 8 mL Sedation: Patient sedated: no Preparation: Patient was prepped and draped in the usual sterile fashion. Irrigation solution: saline Irrigation method: syringe Amount of cleaning: standard Debridement: none Degree of undermining: none Skin closure: 4-0 nylon Number of sutures: 3 Technique: simple Approximation: close Approximation difficulty: simple Dressinx4 sterile gauze Patient tolerance: patient tolerated the procedure well with no immediate complications Imaging Results None Labs Reviewed - No data to display MDM Coding Clinical Impression 1. Laceration of left thumb Wound care instructions provided. Td updated in the ED. Sutures out in 5 days. Return to ED for worsening sxs The patient remained stable throughout their ED [...] the need for follow up. Cosigned by Fletcher Rios MD at 10/10/2022 10:57 AM MINE TECHNICIAN TECHNICIAN TECHNICIAN Associated attestation - Fletcher Rios MD - 10/10/2022 10:57 AM MINE TECHNICIAN I was available for consultation but was not asked by the HEAD WAITER/PA to evaluate this patient. I did not personally examine this patient. I defer to the attached note. I have the following additions/revisions: * Marci Mooney RN - 10/03/2022 5:47 PM CST Pt appears to have an approixmently 1 inch laceration to her lateral Lt thumb. Bleeding in controlled at this time, no drainage noted. Pt denies any numbness or tingling. +PMS. Pt states she tried toglue the laceration back together, but was unsuccessful. TECHNICIAN TECHNICIAN * Javier Velasquez RN - 10/03/2022 3:46 PM CST PT to triage with c/o laceration to right hand by her thumb . PT states that she was peeling potatoes and cut her hand. She attempted to glue it, but states that it will not stay closed and it was draining yellow today. Denies any other sx. TECHNICIAN documented in this encounter Plan of Treatment Upcoming Encounters Date Type Department Care Team (Late st Contact Info) Description 09/13/2025 11:00 AM MINE TECHNICIAN Office Visit [facility] - [facility] [address] [place] [address] Vane Contreras APRN, HISTOLOGY SUPERVISOR [address] [place] [address] documented as of this encounter Procedures Procedure Name Priority Date/Time Associated Diagnosis Comments LACERATION REPAIR Routine 10/03/2022 5:5 0 PM MINE TECHNICIAN documented in this encounter Results * Laceration Repair (10/03/2022 5:50 PM MINE TECHNICIAN) Narrative Fletcher Rios MD - 10/03/2022 5:50 PM MINE TECHNICIAN Abisai Holden PAC ? 10/03/2022 ??6:19 PM Laceration Repair Performed by: Abisai Holden PAC Authorized by: Abisai Holden PAC Consent: Verbal consent obtained. Risks and benefits: risks, benefits and alternatives were discussed Consent given by: patient Patient understanding: patient states understanding of the procedure being performed Patient consent: the patient's understanding of the procedure matches consent given Procedure consent: procedure consent matches procedure scheduled Relevant documents: relevant documents present and verified Test results: test results available and properly labeled Site marked: the operative site was marked Patient identity confirmed: verbally with patient and arm band Body area: upper extremity Location details: left thumb Laceration length: 1 cm Foreign bodies: no foreign bodies Tendon involvement: none Vascular damage: no Anesthesia: digital block Anesthesia: Anesthetic total: 8 mL Sedation: Patient sedated: no Preparation: Patient was prepped and draped in the usual sterile fashion. Irrigation solution: saline Irrigation method: syringe Amount of cleaning: standard Debridement: none Degree of undermining: none Skin closure: 4-0 nylon Number of sutures: 3 Technique: simple Approximation: close Approximation difficulty: simple Dressinx4 sterile gauze Patient tolerance: patient tolerated the procedure well with no immediate complications Abisai Tobias Navin PAC PROCEDURE/MINOR SURG ICAL ORDERABLES Final Result documented in this encounter Visit Diagnoses Diagnosis Laceration of left thumb- Primary Open wound of finger(s) , without mention of complication documented in this encounter Administered Medications Inactive Administered Medications - up to 3 most recent administrations Medication Order MAR Action Action Date Dose Rate Site lidocaine 1 % injection 20 mL 20 mL, Injection, ONCE, 1 dose, On 10/03/22 at 1830 Given 10/03/2022 6:01 PM MINE TECHNICIAN 20 mL documented in this encounter Active and Recently Administered Medications Times are shown in MINE TECHNICIAN. Scheduled Medication Order 10/01/2022 10/02/2022 10/03/2022 lidocaine 1 % injection 20 mL (COMPLETED) 20 mL, Injection, ONCE, 1 dose, On 10/03/22 at 1830 1801 (Given - Provid er: Marci Mooney RN) documented in this encounter Care Teams Dance Therapist Relationship Specialty Start Date End Date Brandon Dumont MD [address] [facility] [address] [place] [address] PCP - General Family Medicine 06/13/22 documented as of this encounter
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
--- OUTSIDE RECORDS SUMMARY | 2024-10-27 11:04 | XMS_ITS | Encounter Summary ---
Author Organization [facility] Address [address] [place] [address] Phone Care Team Providers Care Sleeve Setter Safety Stitch Name Role Phone Brandon Chavez MD Primary Care Provider [phone] Reason for Referral * Radiology Services (Routine) - Closed Specialty Diagnoses / Procedures Referred By Contac t Referred To Contact Radiology Diagnoses COPD exacerbation (HCC) Procedures EVENT RECORDER, 30-DAY Carmen Tracy MD [address] [place] [address] Phone: tel: fax: Referral ID Status Reason Start Date Expiration Date Visits Re quested Visits Authorized [id number] Closed 06/03/2023 1 1 Reason for Visit * Reason Comments Breathing Problem * Auth/Cert (Routine) Specialty Diagnoses / Procedures Referred By Contdonald t Referred To Contact Diagnoses COPD exacerbation (HCC) Viral URI with cough Carmen Tracy MD [address] [place] [address] Phone: tel: fax: Referral ID Status Reason Start Date Expiration Date Visits Re quested Visits Authorized [id number] 1 1 Encounter Details Date Type Department Care Team ([facility] st Contact Info) Description 06/02/2023 8:17 AM CDT - 06/03/2023 1:08 PM CDT Emergency [facility] Med Surg [address] [place] [phone] Rahat Roche MD [address] [place] [address] Carmen Tracy MD [address] [place] [address] Acute respiratory failure with hypoxia (HCC) Discharge Disposition: Discharged to home or Selfcare Social History Tobacco Use Types Packs/Day Years Used Date Smoking Tobacco: Every Day Cigarettes Smokeless Tobacco: Never Tobacco Cessation:Ready to Q uit: Not Asked; Counseling Given: Not Answered Alcohol Use Standard Drinks/Week [...] Sign Reading Time Taken Comments Blood Pressure 130/77 06/03/2023 5:54 AM CDT Pulse 53 06/03/2023 5:54 AM CDT Temperature 36.5 ??C (97.7 ??F) 06/03/2023 5:54 AM CD T Respiratory Rate 16 06/03/2023 7:42 AM CDT Oxygen Saturation 95% 06/03/2023 7:42 AM CDT Inhaled Oxygen Concentration - - Weight 59 kg (130 lb) 06/02/2023 3:55 PM CDT Height 165.1 cm (5' 5 ) 06/02/2023 3:55 PM CDT Body Mass Index 21.63 06/02/2023 3:55 PM CDT documented in this encounter Discharge Summaries * Carmen Tracy MD - 06/03/2023 11:51 AM CDT Images from the original note were not included. [facility] DISCHARGE SUMMARY Name: Joselyn Amado Age: 62 y.o. : 1960 Attending Physician: Carmen Tracy MD Admission Date/Time: 06/02/2023 Discharge Date: 06/03/2023 Primary Care Physician: BRANDON CHAVEZ MD Discharging Provider: Carmen Tracy MD INSTRUCTIONS FOR PHYSICIANS ON FOLLOW UP AFTER DISCHARGE: Follow-up with PCP: BRANDON CHAVEZ MD in 1 week Recommended Tests/Labs to order at follow-up: none Pending Labs/Path/Imaging: Other: 30 day event monitor readings Discharge Instructions: Discharge Condition: improved Disposition: Home Diet: Cardiac Diet Activity: activity as tolerated Primary Discharge Diagnosis: Acute respiratory failure with hypoxia (HCC), Atrial fibrillation withRVR, COPD exacerbation, hypertension, hyperlipidemia, GERD, neuropathy, anxiety, tobacco dependencesyndrome Discharge Diagnoses: As above Active Hospital Problems Diagnosis Date Noted ??? Tobacco dependence [F17.200] 06/02/2023 ??? Hyperlipidemia [E78.5] 06/02/2023 ??? GERD (gastroesophageal reflux disease) [K21.9] 06/02/2023 ??? Anxiety [F41.9] 06/02/2023 ??? Essential hypertension [I10] 08/17/2021 Resolved Hospital Problems Diagnosis Date Noted Date Resolved ??? Acute respiratory failure with hypoxia (HCC) [J96.01] 06/02/2023 06/03/2023 ??? COPD exacerbation (HCC) [J44.1] 06/02/2023 06/03/2023 ??? Atrial fibrillation with RVR (HCC) [I48.91] 06/02/2023 06/03/2023 ??? Acute bronchitis [J20.9] 06/02/2023 06/03/2023 Admitting Diagnoses: As above HOSPITAL COURSE: Joselyn Amado was admitted 06/02/2023 with Acute respiratory failure with hypoxia (HCC) . Surgeries performed during stay: * No surgery found * Consults: Treatment Team: Consulting Physician: Mello Diaz MD; Consulting Physician: Dain Garcia MD Patient was admitted on 06/02/2023 for evaluation of shortness of breath symptoms that were attributed to AFib with RVR and COPD exacerbations. By time of evaluation, both conditions have stabilized,and cardiology evaluation was obtained. Per discussion with Cardiology, recommendations for adjustments to home regimen were provided. Patient will have 30 day event monitor placed and patient will have metoprolol 25 mg b.i.d. started. Prednisone taper is also provided as a part of discharge plan of care in addition to patient receiving nebulizer machine and DuoNeb nebulizers. Patient will follow-up with PCP in 1 week and with eating disorder psychologist in 1 month. Patient advised to discontinue smoking, andshe is also provided nicotine patch taper regimen as a part of discharge plan of care. Exam Day of Discharge: Temp Av.5 ??F (36.4 ??C) Min: 97.2 ??F (36.2 ??C) Max: 97.7 ??F (36.5 ??C) BP Min: 106/57 Max: 133/73 Pulse Av.6 Min: 53 Max: 114 Heart Rate (Monitor) Av.4 Min: 66 Max: 113 Resp Av.2 Min: 15 Max: 22 SpO2 Av.7 % Min: 89 % Max: 100 % O2 Flow Rate (l/min): 2 l/min General: alert, and in no distress. Neck: No JVD. CVS: RRR, no murmur. Chest: clear to auscultation, no wheezes, rales or rhonchi, symmetric air entry. Heart: regular rate and rhythm, S1, S2 normal, no murmur, click, rub or gallop Abdominal: soft, nontender, nondistended. Positive Bowel sounds. Extremities: no edema, no clubbing or cyanosis. Urology: deferred Lab / Imaging Review: Lab Results Component Value Date WBC 17.57 (H) 06/03/2023 HEMOGLOBIN 12.6 06/03/2023 HEMATOCRIT 36.5 06/03/2023 PLATELETCNT 213 06/03/2023 MCV 79.3 (L) 06/03/2023 Lab Results Component Value Date SODIUM 144 06/03/2023 POTASSIUM 4.1 06/03/2023 CHLORIDE 109 06/03/2023 CO2VEN 25 06/03/2023 ANIONGAP 14.1 06/03/2023 GLUCOSE 92 06/03/2023 BUN 18 06/03/2023 CREATININE 0.95 06/03/2023 BCRATIO8 19 06/03/2023 TOTALPROTEIN 6.5 06/02/2023 ALBUMIN 3.8 06/02/2023 CALCIUM 9.2 06/03/2023 TBIL 0.2 06/02/2023 SGOTAST 10 06/02/2023 SGPTALT 11 06/02/2023 ALKALINEPHO 89 06/02/2023 GFRNA 60 06/03/2023 GFRA >60 06/03/2023 No results found for: GLUCOSEPOCT No results found for: INR, PTP No results found for: HGBA1C No results found for: [id number] Lab Results Component Value Date TROPONINI <0.300 06/02/2023 No results found for: FERRITIN No results found for: FOLATE No results found for: PHARTERIAL, PO2ART, MGE6BPX, CO2ART, O2ART No results found for: LACACIDPOCT, LACTICA XR CHEST 2 VIEWS Result Date: 06/02/2023 IMPRESSION: Mildly hyperinflated lungs without definite evidence of acute cardiopulmonary process. CT ANGIO CHEST W/WO CONTRAST WITH PP (POST PROCESSING) Result Date: 06/02/2023 IMPRESSION: 1. Mild scattered ground-glass and bronchial wall thickening likely representing mild bronchitis. No confluent consolidation. DISCHARGE MEDICATION LIST: Medication List START taking these medications doxycycline hyclate 100 MG Caps Commonly known as: VIBRAMYCIN Take 1 Capsule by mouth 2 times daily for 10 days. ipratropium-albuterol 0.5-2.5 (3) MG/3ML Soln Commonly known as: DUO-NEB 3 mL by Nebulization route every 6 hours as needed for Shortness of Breath or Wheezing for up to 90days. metoprolol tartrate 25 MG Tabs Commonly known as: LOPRESSOR Take 1 Tablet by mouth 2 times daily for 90 days. * nicotine 21 MG/24HR Pt24 Commonly known as: NICODERM CQ 1 Patch by Transdermal route every 24 hours for 30 days. Day 1 to Day 30 * nicotine 14 MG/24HR Pt24 Commonly known as: NICODERM CQ 1 Patch by Transdermal route every 24 hours for 29 days. Day 31 to Day 60 Start taking on: July 04, 2023 * nicotine 7 MG/24HR Pt24 Commonly known as: NICODERM CQ 1 Patch by Transdermal route every 24 hours for 30 days. Day 61 to Day 90 Start taking on: August 03, 2023 predniSONE 10 MG Tabs Commonly known as: DELTASONE Take 4 Tablets by mouth daily for 2 days, THEN 3 Tablets daily for 2 days, THEN 2 Tablets daily for2 days, THEN 1 Tablet daily for 2 days, THEN 0.5 Tablets daily for 2 days. Start taking on: June 03, 2023 * This list has 3 medication(s) that are the same as other medications prescribed for you. Read thedirections carefully, and ask your doctor or other care provider to review them with you. CONTINUE taking these medications albuterol 108 (90 Base) MCG/ACT Aers Commonly known as: ProAir HFA take 2 Puffs by inhalation every 4 hours as needed for Wheezing or Cough. atorvastatin 20 MG Tabs Commonly known as: LIPITOR diazePAM 5 MG Tabs Commonly known as: VALIUM diclofenac 75 MG Tbec Commonly known as: VOLTAREN ergocalciferol 61784 UNIT Caps Commonly known as: VITAMIN D [...] known as: EFFEXOR VITAMIN B 12 PO Where to Get Your Medications These medications were sent to [facility]/pharmacy #[id number] - [place], [place] - [address] [address] Hours: 24-hours ?? doxycycline hyclate 100 MG Caps ?? ipratropium-albuterol 0.5-2.5 (3) MG/3ML Soln Information about where to get these medications is not yet available Ask your nurse or doctor about these medications ?? metoprolol tartrate 25 MG Tabs ?? nicotine 14 MG/24HR Pt24 ?? nicotine 21 MG/24HR Pt24 ?? nicotine 7 MG/24HR Pt24 ?? predniSONE 10 MG Tabs Time spent on interview, examination, final orders, recommendations, and care coordination for thishospital discharge: Greater than 30 minutes spent in coordinating care --- 33 minutes Thank you very much for allowing the [facility] Adult Hospitalist Service to participate in the care of this patient. If you have any questions, please don't hesitate to call. Signed: Carmen Tracy MD, 06/03/2023, 11:51 AM CDT documented in this encounter Discharge Instructions * Discharge Instructions* Nuha Clarke - 06/02/2023 8:37 AM CDT [employer]) is providing your Home Oxygen [phone]. If you need to contact the agency regarding your equipment, please call . * Appointments* Carmen Tracy MD - 06/03/2023 11:52 AM CDT COPD exacerbation --- complete course of prednisone taper. DuoNeb prescription provided as apart ofdischarge, and nebulizer machine has been provided. Tachyarrhythmia/elevated heart rate. Per recommendations of eating disorder psychologist, starting metoprolol 25 mgb.i.d. and 30 day event monitor. Follow-up with PCP 1 week Follow-up with eating disorder psychologist in 1 month Patient is requested to stop smoking. Nicotine patch taper regimen prescriptions provided as apart of discharge. Nicotine patch 21 mg topical daily from day 1 to day 30, the nicotine patch 14 mg topical daily from day 31 to day 60, and finally nicotine patch 7 mg topical daily from day 61 to day 90. During this 90 day time interval and upon completion of the/ post completion of 90 day time interval, patient advised she should not smoke. * Attachments The following attachments cannot be sent through Care Everywhere. * Upper Respiratory Infection Adult Mula-fp-Tgyp (Turkmen) documented in this encounter Medications at Time [...] by oral route . ergocalciferol (VITAMIN D) 16637 UNIT Capsule Take 50,000 Units by mouth [...] daily for 2 days. 21 Tablet 06/03/2023 3 documented as of this encounter Progress Notes * Mukul Anton CNA - 06/03/2023 8:32 AM CDT Pt in testing for Q4 vital documented in this encounter H&P Notes * Tonya Goff APRN, ENGINEERING [employer]OB [employer]ITLES - 06/02/2023 4:30 PM CDT HOSPITALIST ADMISSION HISTORY & PHYSICAL EXAM PATIENT NAME: Joselyn Amado, : 1960, MR#[id number] CHIEF COMPLAINT Shortness of breath HPI Joselyn Amado is a 62 y.o. female with a PMHx of hypertension, hyperlipidemia, and anxiety who presented to the ED with complaints of shortness a breath. Patient states she has been experiencing shortness of breath over the last 3 days which increased last night. Reports associated nonproductive cough, congestion, sinus pressure in the left side of the face, and chest pain with deep inspiration. Denies fever and chills. Patient states she had COVID last year, and her current symptoms are similar to those she experienced with COVID. Denies lower extremity edema, but reports orthopnea. Patient endorses smoking 1/2 to 3/4 of a pack of cigarettes per day for the last 45 years. Denies having been diagnosed with COPD or emphysema. While in the ED, the patient was noted to become hypoxic when ambulating, with oxygen saturation 86% on room air. Denies home oxygen use. A CTA of the chest was performed which showed mild scattered ground-glass and bronchial wall thickening likely representing mild bronchitis, with no confluent consolidation. No evidence of pulmonary embolism. Lab analysis was essentially unremarkable. Initially, the plan was to discharge the patient home from the ED with home oxygen. However, the patient had a brief episode of atrial fibrillation with HR 130-150, witnessed by the ED nursing staff. The episode lasted approximately 1-2 minutes, with the patient spontaneously converting back to sinus tachycardia, rate 110s. It was subsequently decided that the patient would likely benefit from overnight observation, and has since been admitted for further management. HOME MEDICATIONS: Prior to Admission Medications Prescriptions Last Dose Informant Patient Reported? Taking? Cyanocobalamin (VITAMIN B 12 PO) 06/01/2023 at 0800 Yes Yes Sig: Take by mouth once a week. Wed albuterol (ProAir HFA) 108 (90 Base) MCG/ACT Aerosol Solution 06/02/2023 at 0800 No Yes Sig: take 2 Puffs by inhalation every 4 hours as needed for Wheezing or Cough. atorvastatin (LIPITOR) 20 MG Tablet 06/01/2023 at 0800 Yes Yes Sig: Take 20 mg by mouth daily. diazePAM (VALIUM) 5 MG Tablet > Month Yes Yes Sig: Take 5 mg by mouth every 12 hours as needed for Anxiety. diclofenac (VOLTAREN) 75 MG Tablet Delayed Response 06/02/2023 Yes Yes Sig: diclofenac sodium 75 mg tablet,delayed release Take 1 tablet twice a day by oral route . ergocalciferol (VITAMIN D) 03572 UNIT Capsule 06/01/2023 Yes Yes Sig: Take 50,000 Units by mouth once a week. wED famotidine (PEPCID) 40 MG Tablet 06/01/2023 at 2000 Yes Yes Sig: Take 40 mg by mouth nightly. fluticasone (FLONASE) 50 MCG/ACT Suspension 06/02/2023 at 0800 Yes Yes Si Sprays by Nasal route. gabapentin (NEURONTIN) 300 MG Capsule 05/26/2023 Yes Yes Si mg daily (with breakfast). hydrALAZINE 25 MG Tablet 06/02/2023 Yes Yes Sig: Take 25 mg by mouth daily. Indications: High Blood Pressure Disorder losartan (COZAAR) 25 MG Tablet 06/01/2023 at 0800 Yes Yes Sig: Take 25 mg by mouth daily. ondansetron (ZOFRAN-ODT) 8 MG TABLET DISPERSIBLE 05/26/2023 Yes Yes Sig: ondansetron 8 mg disintegrating tablet oxybutynin (DITROPAN) 5 MG Tablet 06/01/2023 at 2030 Yes Yes Si mg 2 times daily. Indications: Overactive Bladder venlafaxine (EFFEXOR) 75 MG Tablet 05/26/2023 Yes Yes Sig: Take 75 mg by mouth 3 times daily. Facility-Administered Medications: None ALLERGIES: Allergies There is no known ICA information for this patient. REVIEW OF SYSTEMS: Review of Systems HENT: Positive for congestion, sinus pain and sore throat. Hoarse voice Respiratory: Positive for cough and shortness of breath. Cardiovascular: Positive for chest pain. All other systems reviewed and are negative. PAST MEDICAL HISTORY She has a past medical history of Anxiety, GERD (gastroesophageal reflux disease), Hyperlipidemia, and Hypertension. PAST SURGICAL HISTORY: has a past surgical history that includes Back Surgery and Gallbladder Surgery. FAMILY HISTORY: family history includes No Known Problems in her father and mother. SOCIAL HISTORY : reports that she has been smoking cigarettes. She has been smoking an average of .5 packs per day. She has never used smokeless tobacco. She reports that she does not drink alcohol and does not use drugs. PHYSICAL EXAM : VITALS: BP 121/88 Pulse 100 Temp 97.2 ??F (36.2 ??C) (Tympanic) Resp 16 Ht 5' 5 (1.651 m) Wt 130 lb (59 kg) SpO2 100% BMI 21.63 kg/m?? Temp (24hrs), Av.4 ??F (36.3 ??C), Min:97.2 ??F (36.2 ??C), Max:97.5 ??F (36.4 ??C) Weight: Wt Readings from Last 1 Encounters: 06/02/23 130 lb (59 kg) Body mass index is 21.63 kg/m??. EXAM: Physical Exam Constitutional: General: She is awake. She is not in acute distress. Appearance: She is well-developed. She is not ill-appearing. HENT: Head: Normocephalic and atraumatic. Mouth/Throat: Lips: [place]. Mouth: Mucous membranes are moist. Comments: Voice hoarseness Eyes: General: Lids are normal. Extraocular Movements: Extraocular movements intact. Cardiovascular: Rate and Rhythm: Normal rate and regular rhythm. Pulses: Normal pulses. Heart sounds: Normal heart sounds. Pulmonary: Effort: Pulmonary effort is normal. Breath sounds: Examination of the right-upper field reveals decreased breath sounds. Examination ofthe left-upper field reveals decreased breath sounds. Examination of the right-lower field reveals rales. Examination of the left- lower field reveals rales. Decreased breath sounds and rales present. Abdominal: General: Bowel sounds are normal. There is no distension. Palpations: Abdomen is soft. Tenderness: There is no abdominal tenderness. Musculoskeletal: Cervical back: Normal range of motion and neck supple. Right lower leg: No edema. Left lower leg: No edema. Skin: General: Skin is warm and dry. Neurological: Mental Status: She is alert and oriented to person, place, and time. GCS: GCS eye subscore is 4. GCS verbal subscore is 5. GCS motor subscore is 6. Cranial Nerves: Cranial nerves 2-12 are intact. Psychiatric: Behavior: Behavior is cooperative. DATA REVIEW : XR CHEST 2 VIEWS Result Date: 06/02/2023 IMPRESSION: Mildly hyperinflated lungs without definite evidence of acute cardiopulmonary process. CT ANGIO CHEST W/WO CONTRAST WITH PP (POST PROCESSING) Result Date: 06/02/2023 IMPRESSION: 1. Mild scattered ground-glass and bronchial wall thickening likely representing mild bronchitis. No confluent consolidation. EKG: UA: No results found for this or any previous visit. CBC: Lab Results Component Value Date WBC 8.49 06/02/2023 RBC 5.11 06/02/2023 HEMOGLOBIN 13.9 06/02/2023 HEMATOCRIT 40.7 06/02/2023 PLATELETCNT 241 06/02/2023 CMP: Lab Results Component Value Date SODIUM 142 06/02/2023 POTASSIUM 3.6 06/02/2023 CHLORIDE 106 06/02/2023 CO2VEN 25 06/02/2023 ANIONGAP 14.6 06/02/2023 GLUCOSE 100 (H) 06/02/2023 BUN 18 06/02/2023 CREATININE 1.00 06/02/2023 BCRATIO8 18 06/02/2023 TOTALPROTEIN 6.5 06/02/2023 ALBUMIN 3.8 06/02/2023 CALCIUM 9.1 06/02/2023 TBIL 0.2 06/02/2023 SGPTALT 11 06/02/2023 ALKALINEPHO 89 06/02/2023 GFRNA 57 (L) 06/02/2023 GFRA >60 06/02/2023 Coagulation: No results found for: PTP, INR, PTT Cardiac markers: Lab Results Component Value Date TROPONINI <0.300 06/02/2023 ABGs: No results found for: PHARTERIAL, CO2ART, CVM0OOP, PO2ART, O2ART Mg: No results found for: MAGNESIUM BNP: Lab Results Component Value Date NTPROBNP 40.2 06/02/2023 Thyroid: No results found for: TSH, T4FREE Anti-Epileptics: No results found for: DILANTIN, ADJUSTEDDILA, PHENOBARBITA, VALP2, VALPROICACTT, CARBAM, LAMI1, ETHO1, FEL1, GABAPENTIN, LEVET1, PRPH1, TOPAR1, ZONI1, CLONS1, OXCAM1 Rheumatology: No results found for: CRP, ESR, KINGA Calcium-Ionized: No results found for: CALCIUMIONIZ Outside reports reviewed: ER records, radiology reports, lab reports, xray reports, historical medical records. Previous studies include: Echo Summary/Findings: ASSESSMENT: Active Hospital Problems Diagnosis Date Noted ??? COPD exacerbation (HCC) 06/02/2023 ??? Acute respiratory failure with hypoxia (HCC) 06/02/2023 ??? Atrial fibrillation with RVR (HCC) 06/02/2023 ??? Acute bronchitis 06/02/2023 ??? Tobacco dependence 06/02/2023 ??? Hyperlipidemia 06/02/2023 ??? GERD (gastroesophageal reflux disease) 06/02/2023 ??? Anxiety 06/02/2023 ??? Essential hypertension 08/17/2021 Resolved Hospital Problems No resolved problems to display. PLAN: Acute respiratory failure with hypoxia -SpO2 86% on RA when ambulating, improved with 2 L of O2. -Not on home O2. -CTA chest showed mild scattered ground-glass and bronchial wall thickening likely representing mild bronchitis, with no confluent consolidation. No evidence of pulmonary embolism. -No Pulmonology coverage available. -Prednisone daily. -Scheduled/PRN nebs. -Titrate O2 to keep O2 sats >90%. -Continuous pulse oximetry. -Telemetry monitoring. Atrial fibrillation with RVR (resolved) -Brief episode of Afib, rate 130-150, lasting 1-2 minutes witnessed by ED RN. Spontaneously resolved without intervention. -Currently SR, rate 90s. -No known hx of Afib. -Cardiology consulted, pending recommendations. -ECHO ordered. -[id number] score 2. -Telemetry monitoring. Suspect COPD exacerbation (no known history of COPD) Acute bronchitis -No known hx of COPD, however endorses 45 year history of smoking 1/2 to 3/4 pack per day. Lung sounds diminished BUL, rales BLL. -CTA chest as above. -Prednisone daily. -PO azithromycin. -Scheduled/PRN nebs. -Titrate O2 to keep O2 sats >90%. -Plan for outpatient follow up with pulmonology. Hypertension- continue home antihypertensive medications. Hyperlipidemia- continue statin. GERD- continue famotidine. Neuropathy- continue gabapentin. Anxiety- continue venlafaxine and PRN Valium. Tobacco dependence- encouraged cessation. Nicotine patch PRN. Home meds to be resumed as appropriate. Other changes to meds to be made based on progress during hospitalization. Code Status: CPR-Full Treatment DVT Prophylaxis: Lovenox 40 mg Q24h Consult with: Cardiology Advance Care Planning: Aggregate face to face time discussing end of life advance care planning with patient and/or family and/or Power of Lens Grinder Rough approximately 16 minutes. Discussed CPR/Intubation/Treatment Goals/Quality of life/Intensity of Care. Patient desires: CPR-Full Treatment Total critical care/time spent: 45 minutes Tonya Goff APRN, CNP 06/02/2023 7:51 PM CDT Primary Care Physician: BRANDON CHAVEZ MD Cosigned by Carmen Tracy MD at 06/10/2023 2:21 PM CDT Associated attestation - Carmen Tracy MD - 06/10/2023 2:21 PM CDT Patient has been seen separately from nurse practitioner. History and physical and patient's chart have been reviewed. I agree with current medical management plan of care. Further adjustments management to be coordinated. documented in this encounter Consult Notes * Dain Garcia MD - 06/03/2023 11:22 AM CDTAssociated Order(s): IP CONSULT TO CARDIOLOGY CARDIOLOGY CONSULTATION NOTE Joselyn Amado is a 62 y.o. female admitted 06/02/2023 8:17 AM (LOS: 1 day) CHIEF COMPLAINT Shortness of breath HPI: Joselyn Amado is a 62 y.o. female who presents with the above. Very pleasant 62-year-old lady who is an active smoker. She does have history of hypertension. Cameinto the hospital due to symptoms of shortness of breath which she felt was bronchitis for the pastfew days she is planning on a trip today and wanted to make sure she was okay before going. She wassent for a CT chest which was unremarkable. She also was noted to have some AFib on a monitor however there is no clear documentation of this. The patient did not feel any palpitations. She is otherwise active and functional ad ebony without any limitations. Past Medical/ Social/Family History: Medications Prior to Admission Medication Sig Dispense Refill ??? albuterol (ProAir HFA) 108 (90 Base) MCG/ACT Aerosol Solution take 2 Puffs by inhalation every 4 hours as needed for Wheezing or Cough. 18 g 0 ??? atorvastatin (LIPITOR) 20 MG Tablet Take 20 mg by mouth daily. ??? Cyanocobalamin (VITAMIN B 12 PO) Take by mouth once a week. Wed ??? diazePAM (VALIUM) 5 MG Tablet Take 5 mg by mouth every 12 hours as needed for Anxiety. ??? diclofenac (VOLTAREN) 75 MG Tablet Delayed Response diclofenac sodium 75 mg tablet,delayed release Take 1 tablet twice a day by oral route . ??? ergocalciferol (VITAMIN D) 06464 UNIT Capsule Take 50,000 Units by mouth once a week. wED ??? famotidine (PEPCID) 40 MG Tablet Take 40 mg by mouth nightly. ??? fluticasone (FLONASE) 50 MCG/ACT Suspension 2 Sprays by Nasal route. ??? gabapentin (NEURONTIN) 300 MG Capsule 300 mg daily (with breakfast). ??? hydrALAZINE 25 MG Tablet Take 25 mg by mouth daily. Indications: High Blood Pressure Disorder ??? losartan (COZAAR) 25 MG Tablet Take 25 mg by mouth daily. ??? ondansetron (ZOFRAN-ODT) 8 MG TABLET DISPERSIBLE ondansetron 8 mg disintegrating tablet ??? oxybutynin (DITROPAN) 5 MG Tablet 5 mg 2 times daily. Indications: Overactive Bladder ??? venlafaxine (EFFEXOR) 75 MG Tablet Take 75 mg by mouth 3 times daily. No Known Allergies Past Medical History Positives Diagnosis Date ??? Anxiety ??? GERD (gastroesophageal reflux disease) ??? Hyperlipidemia ??? Hypertension Past Surgical History: Procedure Laterality Date ??? BACK SURGERY ??? GALLBLADDER SURGERY Social History Socioeconomic History ??? Marital status: Single Spouse name: Not on file ??? Number of children: Not on file ??? Years of education: Not on file ??? Highest education level: Not on file Occupational History ??? Not on file Tobacco Use ??? Smoking status: Every Day Packs/day: 0.50 Types: Cigarettes ??? Smokeless tobacco: Never Substance and Sexual Activity ??? Alcohol use: Never ??? Drug use: Never ??? Sexual activity: Not on file Other Topics Concern ??? Not on file Social History Narrative ??? Not on file Family History Problem Relation Age of Onset ??? No Known Problems Mother ??? No Known Problems Father Review of Systems: All systems were reviewed and are negative other than what is noted in HPI. Objective: BP 130/77 Pulse 53 Temp 97.7 ??F (36.5 ??C) (Tympanic) Resp 16 Ht 5' 5 (1.651 m) Wt 130 lb (59 kg) SpO2 95% BMI 21.63 kg/m?? Physical Exam: General appearance: alert, no distress, cooperative, appears stated age Head: Normocephalic, without obvious abnormality, atraumatic Eyes: conjunctivae/corneas clear. Pupils equal, round, reactive to light. Extraocular Movements intact. Neck: supple, symmetrical, trachea midline, no adenopathy, thyroid: not enlarged, symmetric, no tenderness/mass/nodules, no carotid bruit and no Jugular Venous Distention Lungs: Poor entry bilaterally with bibasilar inspiratory rhonchi Heart: regular rate and rhythm, S1, S2 normal, no murmur, click, rub or gallop Abdomen: soft, non-tender. Bowel sounds normal. No masses, no organomegaly Extremities: extremities normal, atraumatic, no cyanosis or edema Pulses: 2+ and symmetric Musculoskeletal: Normal. Neurologic: Alert and oriented X 3. Normal strength and tone. Cardiographics: ECG: normal sinus rhythm, no blocks or conduction defects, no ischemic changes, WNL . Echocardiogram: Abnormal, and reviewed by myself: Ejection fraction is preserved. Myxomatous mitralvalve with moderate mitral regurgitation and possible early rheumatic valve disease. Lab Review: CBC: Lab Results Component Value Date WBC 17.57 (H) 06/03/2023 HEMOGLOBIN 12.6 06/03/2023 HEMATOCRIT 36.5 06/03/2023 PLATELETCNT 213 06/03/2023 BMP: Lab Results Component Value Date SODIUM 144 06/03/2023 POTASSIUM 4.1 06/03/2023 CHLORIDE 109 06/03/2023 CO2VEN 25 06/03/2023 GLUCOSE 92 06/03/2023 BUN 18 06/03/2023 CREATININE 0.95 06/03/2023 CREATININE 1.00 06/02/2023 CALCIUM 9.2 06/03/2023 Coagulation: No results found for: INR, PT Cardiac markers: Lab Results Component Value Date TROPONINI <0.300 06/02/2023 No results found for: CHOLESTEROL, TRIGLYCRIDES, HDLCHOLESTE, LDL Lab Results Component Value Date SGPTALT 11 06/02/2023 No results found for: BNP, BNPPOCT Assessment/ Plan: 1. Atrial fibrillation No clear documentation of AFib. Would plan for metoprolol b.i.d.. Patient can go home with a 30 dayevent monitor. Should she have atrial fibrillation it would be reasonable to anticoagulate her. 2. Smoking cessation discussed and stressed See orders for recommended meds By: Dain Strong MD, 06/03/2023, 11:22 AM CDT Primary Care Physician: BRANDON CHAVEZ MD documented in this encounter ED Notes * Josefina Crain RN - 06/02/2023 3:34 PM CDT Patient is able to be admitted at this time per DEANN Wolff. Patient transferred to room [facility] per stretcher by [facility] at this time. Assessment unchanged. Belongings and home oxygen tank with patient. VSS. * Josefina Crain RN - 06/02/2023 3:27 PM CDT Patient called staff to bedside stating she is going to leave AMA. Patient verbalizes extreme frustration as NURA Roche has not been in to discuss her need for home oxygen and the recommended admission despite requesting he do so multiple times. Patient states she wants to sit in my car for awhile. Patient educated regarding inability of patients to leave the hospital until discharge, especially with an IV in place. Patient ambulatory to restroom with steady gait. * Josefina Crain RN - 06/02/2023 2:15 PM CDT Patient is resting in room with call light at bedside. Patient informed about wait time and verbalizes understanding. Patient denies needs at this time and verbalizes understanding that RN will complete hourly rounding. 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 [facility] with 4 stairs and railing to enter as well as 17 stairs to access her 2nd floor to her bedroom. Patient is independent with her ADL's as well as her cooking,cleaning, laundry and driving. Patient denies use of DME. Patient has [employer] and denies issues with obtaining or affording her medications from [facility] in [place]. Patient PCP is BRANDON CHAVEZ MD She does not have a HCPOA on file. Joselyn is not a 30 day re-hospitalization. Plan of Care (Problem/ situation/ barrier + goals/ milestones + interventions + evaluation of progress = Plan of Care) Hospital Plan:Discharge with Oxygen and nebulizer Anticipated Discharge Plan: Durable Medical Equipment (DME) 06/02/23 Patient/ patient branch sales and service representative's preferences regarding the discharge plan: Home SUMMARY (summary of interaction with patient/decision maker, family and interdisciplinary team) Met with Joselyn and introduced self and role and discussed plan of care. Patient discharge plan is to discharge home with DME of oxygen and nebulizer via family car. Patient has no other needs at this time. IM Letter Documentation, if applicable Medicare Notice Given to Responsible Green Party: Decision Maker / Light Rail Operator Information Patient is medical decision-maker No new referrals for Director Records Management at this time. * Josefina Crain RN - 06/02/2023 1:50 PM CDT Patient's HR noted to increase to 130s-150s while in CT. HR spontaneously returned to NSR/ST in [id number]. Awaiting provider return to update. * Josefina Crain RN - 06/02/2023 12:53 PM CDT Patient continues to await oxygen delivery. * Josefina Crain RN - 06/02/2023 12:40 PM CDT Testing at Rest (awake) on Room Air At rest only (awake) on room air 86 % Test Date 06/02/2023 88% or below will qualify patient for continuous use. If the patient qualifies AT REST (awake) no need to test with activity. Testing during Exercise on room air and with Oxygen Applied At rest (awake) on room air 86 % During exercise on room air 90 % During Exercise with Oxygen applied 94 % @ 2 L Test date for all 3 tests above 06/02/2023 If the patient DOES NOT qualify AT REST and only de-sats with any activity all 3 test above must beperformed and documented on the same date. * Josefina Crain RN - 06/02/2023 11:45 AM CDT Attempting to find and place the correct order for home oxygen therapy. Patient awaiting to speak with provider despite requesting to do so regarding home oxygen order. * Josefina Crain RN - 06/02/2023 10:37 AM CDT NURA Goldena informed of patient's SpO2 intermittently dropping into the mid to high 80s on room air. This nurse to bedside to verify that the patient's BP cuff is not firing to cause inaccurate vitals. ERP informed; states the patient is to be admitted. * Josefina Crain RN - 06/02/2023 9:56 AM CDT Per ERP Kaley, administer one additional breathing treatment prior to discharge. RT notified. * Josefina Crain RN - 06/02/2023 9:40 AM CDT Pt medicated per provider orders. Pt educated on intended effects and side effects of medication and verbalized understanding, able to provide teach back of education. Patient intermittently dropping into the high 80s on room air with good a pleth noted but spontaneously returns to the mid to high 90s; ERP Kaley informed. No new orders received. Provider to bedside to discuss findings and plan of care. Patient to be discharged. * Josefina Crain RN - 06/02/2023 8:45 AM CDT No change since triage, see triage note. Assessment as documented. Patient pleasant, cooperative and thankful for care. VSS; will continue to monitor. * Rahat Roche MD - 06/02/2023 8:35 AM CDT Chief Complaint Patient presents with ??? Breathing Problem Patient is a 62-year-old female complaining of cough, productive, chest congestion, sinus congestion and shortness of breath that started 3 days ago. Patient denies chest pain, abdominal pain, nausea, vomiting, fever or chills. No current facility-administered medications for this encounter. Current Outpatient Medications Medication Sig Dispense Refill ??? albuterol (ProAir HFA) 108 (90 Base) MCG/ACT Aerosol Solution take 2 Puffs by inhalation every 4 hours as needed for Wheezing or Cough. 18 g 0 ??? ALPRAZolam (XANAX) 0.5 MG Tablet alprazolam 0.5 mg tablet TAKE 1 TABLET BY MOUTH TWICE DAILY NEEDED ??? carbamide peroxide (DEBROX) 6.5 % Solution Place 5 Drops in affected ear(s) 2 times daily. 15 mL 0 ??? cloNIDine (CATAPRES) 0.3 MG Tablet Take [...] a day by oral route . ??? doxycycline hyclate (VIBRAMYCIN) 100 MG Capsule Take 1 Capsule by mouth 2 times daily for 10 days. 20 Capsule 0 ??? fluticasone (FLONASE) 50 MCG/ACT Suspension 2 [...] more severe pain. 12 Tab 0 ??? ipratropium-albuterol (DUO-NEB) 0.5-2.5 (3) MG/3ML Solution 3 mL by Nebulization route 4 times daily for 14 days. 168 mL 0 ??? methylPREDNISolone (MEDROL DOSPACK) 4 MG Tablet Therapy Pack See product package insert for dosing schedule 21 Tablet 0 ??? methylPREDNISolone (MEDROL DOSPACK) 4 MG Tablet Therapy Pack See product package insert for dosing schedule 21 Tablet 0 ??? ondansetron (ZOFRAN-ODT) 8 MG TABLET DISPERSIBLE ondansetron 8 mg disintegrating tablet ??? oxybutynin (DITROPAN) 5 MG Tablet ??? predniSONE (DELTASONE) 10 MG Tablet Take 4 tab PO daily x 2 days, 3 tab PO daily x 2 days, 2 tab PO daily x 2 day, 1 tab PO daily x 2 days. 20 Tablet 0 ??? pseudoephedrine (SUDAFED) 60 MG Tablet Take 1 Tablet by mouth every 6 hours as needed for Congestion. 30 Tablet 0 ??? traMADol (ULTRAM) 50 MG [...] History Narrative ??? Not on file BP 133/73 Pulse 105 Temp 97.5 ??F (36.4 ??C) (Tympanic) Resp 21 Ht 5' 5 (1.651 m) Wt 130lb 4.7 oz (59.1 kg) SpO2 96% BMI 21.68 kg/m?? Review of Systems Constitutional: Negative for activity change, appetite change, chills, diaphoresis, fatigue and fever. HENT: Negative for congestion, ear pain, rhinorrhea, sore throat and trouble swallowing. Eyes: Negative for discharge and visual disturbance. Cardiovascular: Negative for chest pain, palpitations and leg swelling. Gastrointestinal: Negative for abdominal distention, abdominal pain, anal bleeding, blood in stool,diarrhea, nausea and vomiting. Endocrine: Negative for polydipsia, polyphagia and polyuria. Genitourinary: Negative for difficulty urinating, dysuria, hematuria and menstrual problem. Musculoskeletal: Negative for arthralgias, back pain, myalgias, neck pain and neck stiffness. Skin: Negative for color change, pallor, rash and wound. Neurological: Negative for dizziness, seizures, syncope, facial asymmetry, speech difficulty, numbness and headaches. Hematological: Does not bruise/bleed easily. Psychiatric/Behavioral: Negative for confusion, hallucinations, self-injury and suicidal ideas. All other systems reviewed and are negative. Physical Exam Vitals and nursing note reviewed. Constitutional: General: She is not in acute distress. Appearance: She is well-developed. She is not ill-appearing, toxic-appearing or diaphoretic. HENT: Head: Normocephalic and atraumatic. Right Ear: External ear normal. Left Ear: External ear normal. Nose: Congestion present. Mouth/Throat: Mouth: Mucous membranes are moist. Pharynx: Oropharynx is clear. Eyes: General: No scleral icterus. Extraocular Movements: Extraocular movements intact. Conjunctiva/sclera: Conjunctivae normal. Pupils: Pupils are equal, round, and reactive to light. Neck: Trachea: No tracheal deviation. Cardiovascular: Rate and Rhythm: Normal rate and regular rhythm. Heart sounds: Normal heart sounds. No murmur heard. No friction rub. No gallop. Pulmonary: Effort: Pulmonary effort is normal. No respiratory distress. Breath sounds: Wheezing present. No rales. Abdominal: General: Abdomen is flat. Bowel sounds are normal. There is no distension. Palpations: Abdomen is soft. Tenderness: There is no abdominal tenderness. There is no guarding or rebound. Musculoskeletal: General: Normal range of motion. Cervical back: Normal range of motion. Skin: General: Skin is warm and dry. Capillary Refill: Capillary refill takes less than 2 seconds. Coloration: Skin is not cyanotic, jaundiced or mottled. Findings: No erythema or rash. Neurological: General: No focal deficit present. Mental Status: She is alert and oriented to person, place, and time. Cranial Nerves: No cranial nerve deficit. Psychiatric: Mood and Affect: Mood normal. Behavior: Behavior normal. Procedures Imaging Results CT ANGIO CHEST W/WO CONTRAST WITH PP (POST PROCESSING) (Final result) Result time 06/02/23 14:08:40 Final result by Joshua Burnham MD (06/02/23 14:08:40) Impression: IMPRESSION: 1. Mild scattered ground-glass and bronchial wall thickening likely representing mild bronchitis. No confluent consolidation. Narrative: EXAM DESCRIPTION: CT ANGIO CHEST W/WO CONTRAST WITH PP (POST PROCESSING) REASON FOR STUDY: c/o SOB, cough, and congestion x 3 days. TECHNIQUE: CT angiogram of the chest performed with intravenous contrast using helical scanning technique with dynamic intravenous contrast injection. Reconstructed coronal and sagittal MPR images reviewed. All images stored on PACS. 3D MIP images rendered on scanning unit and reviewed at time of interpretation. Automated exposure control was used as a dose optimization technique for this examination. CONTRAST TYPE/DOSE: 100mL of IOPAMIDOL 76 % IV SOLN injected via Intravenous COMPARISON: None available REFERENCE: Per ACR white paper recommendations, unless otherwise specified no follow-up imaging is recommended for incidental renal and adrenal lesions per consensus recommendations based on imaging criteria. Further lab evaluation could be pursued based on clinical findings. FINDINGS: VASCULATURE: No identified pulmonary emboli. LUNGS: There is mild emphysema. There is mild bronchial wall thickening. There is scattered ground-glass in the lung bases and left upper lobe. There is also associated linear atelectasis PLEURA: No effusion. No pneumothorax. MEDIASTINUM/SHERRON: Small bilateral hilar lymph nodes are within normal limits but possibly reactive. HEART: Heart size is normal with no pericardial effusion. AXILLA: No adenopathy. CHEST WALL: No masses. No subcutaneous air. HARDWARE/LINES/TUBES: None. UPPER ABDOMEN: No significant abnormality. MUSCULOSKELETAL: No significant abnormality. OTHER: No significant abnormality. THIS IS AN ELECTRONICALLY VERIFIED FINAL REPORT 06/02/2023 2:05 PM - Electronically signed by Joshua Burnham M.D. KN: ASHLEY Report ID: [id number] Reading Location: [place] [address] XR CHEST 2 VIEWS (Final result) Result time 06/02/23 09:01:02 Final result by Priscilla Quarles DO (06/02/23 09:01:02) Impression: IMPRESSION: Mildly hyperinflated lungs without definite evidence of acute cardiopulmonary process. Narrative: EXAM DESCRIPTION: XR CHEST 2 VIEWS REASON FOR STUDY: complaining of SOB, cough, and congestion x 2-3 days worse last night. pt state she used an inhale and had no relief TECHNIQUE: Frontal and lateral radiographic view(s) of the chest. COMPARISON: None FINDINGS: The heart, mediastinum, and pulmonary vasculature are grossly unremarkable. There are mild atherosclerotic changes of the aorta. There is no definite evidence of a pneumothorax. There is no definite evidence of focal consolidation or pleural effusion. The lungs are mildly hyperinflated. There is a minimal S shaped scoliotic curvature of the spine with degenerative changes. THIS IS AN ELECTRONICALLY VERIFIED FINAL REPORT 06/02/2023 8:58 AM - Electronically signed by Priscilla Quarles D.O. PS: PS Report ID: [id number] Reading Location: [place] [address] Labs Reviewed CMP (COMPREHENSIVE METABOLIC PANEL) - Abnormal; Notable for the following components: Result Value GLUCOSE 100 (*) GFR, EST. NONAFRICAN 57 (*) All other components within normal limits CBC WITH AUTO DIFFERENTIAL - Abnormal; Notable for the following components: MCV 79.6 (*) MONOCYTES 3.8 (*) EOSINOPHILS 5.5 (*) ABSOLUTE EOSINOPHIL 0.47 (*) All other components within normal limits N-TERMINAL- PRO B TYPE NATRIURETIC PEPTIDE - Normal TROPONIN I (TRP I) - Normal COMPLETE BLOOD COUNT (CBC) WITH DIFF Narrative: The following orders were created for panel order CBC w/ Diff. Procedure Abnormality Status --------- ------ CBC with Auto Differential[[id number]] Abnormal Final result Please view results for these tests on the individual orders. EXTRA TUBES Narrative: The following orders were created for panel order Extra Tubes. Procedure Abnormality Status --------- ------ Blue Top Tube[[id number]] Final result Gold Top Tube[[id number]] Final result Please view results for these tests on the individual orders. BLUE TOP TUBE GOLD TOP TUBE Medical Decision Making Differential diagnosis: COPD exacerbation, acute bronchitis, upper respiratory infection, pneumonia EKG: June 02, 2023 at 8:31 a.m.: Heart rate 85, normal sinus rhythm, normal IL interval, normal QT duration, normal QRS, normal EKG I have reviewed and interpreted her labs chest x-ray and EKG. CBC within normal limits no elevated white count or left shift. CMP within normal limits. EKG no acute ischemia or arrhythmia seen. Troponin is normal. Chest x-ray no acute cardiopulmonary process. CTA chest: Negative for PE IMPRESSION: ?? Mild scattered ground-glass and bronchial wall thickening likely representing mild bronchitis. No confluent consolidation Prior to discharge had the patient walk and check her oxygen saturation, it dropped to 86%. Patientwill need to be admitted for further evaluation treatment. Discussed with Dr. Tracy agreed with current plan and treatment and accepted the admit. Amount and/or Complexity of Data Reviewed Labs: ordered. Decision-making details documented in ED Course. Radiology: ordered and independent interpretation performed. Decision-making details documented in ED Course. ECG/medicine tests: ordered and independent interpretation performed. Decision- making details documented in ED Course. Clinical Impression 1. COPD exacerbation (HCC) 2. Viral URI with cough Disposition: Admitted * Marci Mooney RN - 06/02/2023 8:23 AM CDT Pt arrives to triage in no noted distress complaining of SOB, cough, and congestion. Pt states thatshe has been using albuterol inhaler at home with no relief. Pt states her cough is non-productive and she feels that she needs to cough it up, but it won't come. documented in this encounter Miscellaneous Notes * Odessa Alexander RN - 06/03/2023 1:08 PM CDT Patient is still physically here, but in order for her to get fitted with 30 day cardiac event monitor she had to be discharged from [facility]. * Odessa Alexander RN - 06/03/2023 1:08 PM CDT Patient is now physically discharged, all belongings accounted for. * Odessa Alexander RN - 06/03/2023 12:45 PM CDT Discharge education given to patient. Radha voiced understanding of new scripts, stated she had takenPrednisone before. Knows to pick up attendant her medications at home pharmacy. Voiced understanding of follow up appointments and 30 day event monitor. * Marci Garrido - 06/03/2023 11:53 AM CDT Case Management Discharge Readiness Note Joselyn's readmission risk level (if calculated) is: Patient Class: Outpatient with Observation Services Consecutive Inpatient Midnights :none - not currently inpatient class Actual day(s) of hospital stay (compare to working DRG): 1 Discharge: Final home discharge arrangements: home with no services Mode of transportation at discharge:: Family car Additional Information regarding DC Plan: Patient no longer needs O2 and has been weaned off of O2.Per Dr. Tracy, patient does not need Xarelto or other OAC at this time. Discharge Plan Notification/ Verification 1. Patient's Phone numbers: [phone] (home) 2. Patient's preferred discharge phone number for follow up appointments, etc: (if different from above): N/A 3. Information for bedside nurse to call report and fax PACT Document in Sticky Note?: Not applicable - no external home care agencies or hemodialysis 4. Nursing notified: YES Odessa ZACARIAS 5. Patient/ Decision Maker and family notified: Joselyn IM Letter Documentation, if applicable N/A - Payor is not Medicare Decision Maker / Caregiver Information Medical Decision Maker Assessment: Patient is medical decision-maker * Odessa Alexander, RN - 06/03/2023 11:00 AM CDT Testing at Rest (awake) on Room Air 1. At rest only (awake) on room air 95 % Test Date 06/03/2023 88% or below will qualify patient for continuous use. If the patient qualifies AT REST (awake) no need to test with activity. Testing during Exercise on room air and with Oxygen Applied 1. At rest (awake) on room air 95 % 2. During exercise on room air 91 % 3. During Exercise with Oxygen applied % @ L Test date for all 3 tests above 06/03/2023 If the patient DOES NOT qualify AT REST and only de-sats with any activity all 3 test above must beperformed and documented on the same date. * Heena Diaz RRT - 06/03/2023 9:01 AM CDT Respiratory Therapy Assessment And Education Points 0 1 2 3 4 Score Pulmonary History No Smoking Smokes <1 ppd Smokes 1 ppd or more Pulmonary impairment (acute or chronic) Severe or Chronic exacerbation 0 Surgical Status None General Surgery Lower Abdominal Surgery Thoracic or Upper Abdominal Surgery Thoracic with Pulmonary Disease 0 CXR (from last 24 hrs) Clear Unavailable Infiltrates, Atelectasis or Pleural effusion Infiltrates in more than 1 lobe Infiltrates plus Atelectasis or Pleural effusion 0 Respirations Regular Pattern, RR 8-20 Increased, RR 21-25 Dyspnea on exertion, irregular pattern, RR 26-30 Use of accessory muscles, prolonged expiration, RR 31-35 Severe SOB with use of accessory muscles, RR >35 0 BS Clear Diminished Unilaterally Diminished Bilaterally Crackles in Bases Wheezing and/or Rhonchi 0 Cough Strong, Non- productive cough Strong, productive cough Weak, Non- productive cough Weak, productive cough No cough, may require suctioning 0 Mental status Alert and oriented Lethargic, follows commands Confused, does not follow commands Obtunded Comatose 0 Level of Activity Ambulatory Ambulatory with assistance Temporarily non-Ambulatory Bed rest, able to position self Bed rest, unable to position self 0 O2 required to keep SpO2 >=92% (or ordered goal) None 1-3 L/M or FiO2 25-35% 4-6 L/M or FiO2 35-50% >50% 100% 1 Total Score 1 Treatment Scoring Guide Frequency Utilize ORDER SET for all changes Severity Level 5 > 20 points Q2 and Q4 Albuterol Q2 and Ipratropium Q4 *Discontinue previous orders* Severity Level 4 16-20 points Q4 and PRN Duoneb Q4 and Albuterol Q2 PRN *Discontinue previous orders* Severity Level 3 11-15 points QID and PRN Duoneb QID and Albuterol Q4 PRN *Discontinue previous orders* Severity Level 2 6-10 points TID and Q6 PRN Albuterol only *Discontinue previous orders* Severity Level 1 0-5 points Q6 PRN Albuterol only *Discontinue previous orders* Home Regimen Home medication orders As per reconciled home medications Patient RTA Severity Level Is: 1 Patient Progression Since Admission: not changed Treatment Plan Adjusted: No: Education Documented (within Education Tab): Yes Education Provided To: patient Comments: na By: HEENA HO, TRINI; 06/03/2023, 9:01 AM CDT * Plan of Care - Fabiola Puente RN - 06/03/2023 1:15 AM CDT Problem: Adult Inpatient Plan of Care Goal: Plan of Care Review 06/03/2023115 by FABIOLA Outcome: Ongoing (see interventions/notes) Flowsheets (Taken 06/03/2023113) Plan of Care Reviewed With: patient Progress: progress towards functional goals is fair Today's Goal: no SOB this shift. Outcome Evaluation: Patient has had no SOB noted this shift. She continues on o2 per nasal cannula.patient does have episodes of fluttering in her chest. HR will increase as well. telemetry in place. no s/s of any distress noted. call light in reach. 06/03/2023113 by FABIOLA Outcome: Ongoing (see interventions/notes) Flowsheets (Taken 06/03/2023113) Plan of Care Reviewed With: patient Progress: progress towards functional goals is fair Today's Goal: no SOB this shift. Outcome Evaluation: Patient has had no SOB noted this shift. She continues on o2 per nasal cannula.patient does have episodes of fluttering in her chest. HR will increase as well. telemetry in place. no s/s of any distress noted. call light in reach. Goal: Patient-Specific Goal (Individualized) 06/03/2023115 by FABIOLA Outcome: Ongoing (see interventions/notes) 06/03/2023113 by FABIOLA Outcome: Ongoing (see interventions/notes) Goal: Absence of Hospital-Acquired Illness or Injury 06/03/2023115 by FABIOLA Outcome: Ongoing (see interventions/notes) 06/03/2023113 by FABIOLA Outcome: Ongoing (see interventions/notes) Intervention: Prevent and Manage VTE (Venous Thromboembolism) Risk Flowsheets (Taken 06/02/2023 4926) VTE Prevention/Management: anticoagulant therapy maintained ambulation encouraged Goal: Optimal Comfort and Wellbeing 06/03/2023115 by FABIOLA Outcome: Ongoing (see interventions/notes) 06/03/2023113 by FABIOLA Outcome: Ongoing (see interventions/notes) Intervention: Monitor Pain and Promote Comfort Flowsheets (Taken 06/03/2023115) Pain Management Interventions: care clustered pain management plan reviewed with patient/caregiver quiet environment facilitated relaxation techniques promoted position adjusted pillow support provided Intervention: Provide Person-Centered Care Flowsheets (Taken 06/03/2023115) Trust Relationship/Rapport: care explained choices provided emotional support provided questions answered empathic listening provided nonverbal communication acknowledged therapeutic presence provided respect patient/family decisions provided reassurance provided safe/supportive environment facilitated questions encouraged thoughts/feelings acknowledged Goal: Readiness for Transition of Care 06/03/2023 0116 by FABIOLA Outcome: Ongoing (see interventions/notes) 06/03/2023 0114 by FABIOLA Outcome: Ongoing (see interventions/notes) * Interdisciplinary - Maren Fischer RRT - 06/02/2023 9:15 PM CDT Respiratory Therapy Assessment And Education Points 0 1 2 3 4 Score Pulmonary History No Smoking Smokes <1 ppd Smokes 1 ppd or more Pulmonary impairment (acute or chronic) Severe or Chronic exacerbation 0 Surgical Status None General Surgery Lower Abdominal Surgery Thoracic or Upper Abdominal Surgery Thoracic with Pulmonary Disease 0 CXR (from last 24 hrs) Clear Unavailable Infiltrates, Atelectasis or Pleural effusion Infiltrates in more than 1 lobe Infiltrates plus Atelectasis or Pleural effusion 0 Respirations Regular Pattern, RR 8-20 Increased, RR 21-25 Dyspnea on exertion, irregular pattern, RR 26-30 Use of accessory muscles, prolonged expiration, RR 31-35 Severe SOB with use of accessory muscles, RR >35 0 BS Clear Diminished Unilaterally Diminished Bilaterally Crackles in Bases Wheezing and/or Rhonchi 2 Cough Strong, Non- productive cough Strong, productive cough Weak, Non- productive cough Weak, productive cough No cough, may require suctioning 0 Mental status Alert and oriented Lethargic, follows commands Confused, does not follow commands Obtunded Comatose 0 Level of Activity Ambulatory Ambulatory with assistance Temporarily non-Ambulatory Bed rest, able to position self Bed rest, unable to position self 0 O2 required to keep SpO2 >=92% (or ordered goal) None 1-3 L/M or FiO2 25-35% 4-6 L/M or FiO2 35-50% >50% 100% 1 Total Score 3 Treatment Scoring Guide Frequency Utilize ORDER SET for all changes Severity Level 5 > 20 points Q2 and Q4 Albuterol Q2 and Ipratropium Q4 *Discontinue previous orders* Severity Level 4 16-20 points Q4 and PRN Duoneb Q4 and Albuterol Q2 PRN *Discontinue previous orders* Severity Level 3 11-15 points QID and PRN Duoneb QID and Albuterol Q4 PRN *Discontinue previous orders* Severity Level 2 6-10 points TID and Q6 PRN Albuterol only *Discontinue previous orders* Severity Level 1 0-5 points Q6 PRN Albuterol only *Discontinue previous orders* Home Regimen Home medication orders As per reconciled home medications Patient RTA Severity Level Is: 1 Patient Progression Since Admission: New Pt Treatment Plan Adjusted: Yes Education Documented (within Education Tab): Yes Education Provided To: patient Comments: By: MAREN FISCHER, NEW ORDER CLERK; 06/02/2023, 9:16 PM CDT * Interdisciplinary - Fabiola Puente RN - 06/02/2023 6:54 PM CDT Patient resting in bed at this time with no s/s of any distress noted. Call light in reach. * Interdisciplinary - Maren Friend RN - 06/02/2023 4:20 PM CDT Initial Skin Assessment Patient assessed with 2nd RN Clarke Wounds noted: na PRESSURE INJURY AND MOISTURE MANAGEMENT RECOMMENDATIONS: Moisture Management: Patient is Continent and has no moisture problems at this time Pressure Injury Prevention Interventions: Patient is independent in Room and/or Bed Specialty Surface Selection: Moisture Score: 4-->rarely moist Mobility Score: 3-->slightly limited Total Ruben Score: 22 Patient has intact skin on the pelvis and trunk: Bed Selection based on Ruben Moisture and Mobility: Moisture 4: Mobility 3 or 4: No Specialty Bed Indicated Wound care: N/A MAREN FRIEND RN documented in this encounter Plan of Treatment Upcoming Encounters Date Type Department Care Team (Late st Contact Info) Description 09/13/2025 11:00 AM LOGISTICS SPECIALIST Office Visit [facility] - Cardiology - [place] [address] [place] [address] Vane Contreras, VIRAL, ENGINEERING JOB TITLES [address] [place] [address] Scheduled Orders Name Type Priority Associated Diagnoses Orde r Schedule EVENT RECORDER, 30-DAY ECG Non-[place] Routine One Time for 1 Occurrences starting 06/03/2023 until 06/03/2023 documented as of this encounter Procedures Procedure Name Priority Date/Time Associated Diagnosis Comments ADULT TRANS THORACIC ECHO 2D COMPLETE Routine 06/03/2023 8:46 AM CDT CBC WITH AUTO DIFFERENTIAL Routine 06/03/2023 4:13 AM CDT COMPLETE BLOOD COUNT (CBC) WITH DIFF Routine 06/03/2023 4:13 AM CDT BASIC METABOLIC PANEL W/ CALCIUM TOTAL Routine 06/03/2023 4:13 AM CDT RHYTHM STRIP 06/03/2023 12:00 AM CDT RHYTHM STRIP 06/03/2023 12:00 AM CDT SARS-COV-2 BY MOLECULAR Routine 06/02/2023 4:[address] ANGIO CHEST W/WO CONTRAST WITH PP (POST PROCESSING) Stat with Interpretation 06/02/2023 1:48 PM CDT XR CHEST 2 VIEWS STAT 06/02/2023 8:54 AM CDT EXTRA TUBES STAT 06/02/2023 8:35 AM CDT N-TERMINAL- PRO B TYPE NATRIURETIC PEPTIDE STAT 06/02/2023 8:35 AM CDT GOLD TOP TUBE STAT 06/02/2023 8:35 AM CDT BLUE TOP TUBE STAT 06/02/2023 8:35 AM CDT CBC WITH AUTO DIFFERENTIAL STAT 06/02/2023 8:35 AM CDT TROPONIN I (TRP I) STAT 06/02/2023 8: 35 AM CDT CMP (COMPREHENSIVE METABOLIC PANEL) STAT 06/02/2023 8:35 AM CDT COMPLETE BLOOD COUNT (CBC) WITH DIFF STAT 06/02/2023 8:35 AM CDT EKG 12 LEAD STAT 06/02/2023 8:31 AM CDT RHYTHM STRIP 06/02/2023 12:00 AM CDT RHYTHM STRIP 06/02/2023 12:00 AM CDT EKG SCAN 06/02/2023 12:00 AM CDT EKG SCAN 06/02/2023 12:00 AM CDT documented in this encounter Results * EVENT [...] as correlated above. Please correlate clinically. IJN: ??[id number]/cjn Procedure Note Dain Garcia MD - 07/05/2023 [...] as correlated above. Please correlate clinically. IJN: [id number]/cjn us Carmen Burger MD [facility] ECG ORDERABLES Final Resu lt * ADULT TRANS THORACIC ECHO 2D COMPLETE (06/03/2023 8:46 AM CDT) AV Peak Grad mmHg 9.86 mmHg RESULTING AGENCY Mean Aortic Valve Gradient (MAVG) 5 mmHg RESULTING AGENCY LV end justino diam cm 4.65 cm RESULTING AGENCY LV end sys diam cm 3.07 cm RESULTING AGENCY Aortic Root Diam cm 3.4 cm RESULTING AGENCY LA vol index ml/m2 29 ml/m2 RESULTING AGENCY RV Vidal Dimension cm 0.69 cm RESULTING AGENCY LVOT Peak Stuart m/sec 0.955 m/sec RESULTING AGENCY AV Peak Stuart m/sec 1.57 m/sec RESULTING AGENCY MVA by PHT cm2 2.34 cm2 RESUL TING AGENCY E/A Ratio 0.84 RESULTING AGENCY TR Stuart m/sec 2.1 m/sec RESULTI NG AGENCY E/E' 19 RESULTING AGENCY AV Area (VTI) cm2 1.64 cm2 RESULTING AGENCY SEPTUM DIASTOLIC CM 1 cm RESULTING AGENCY PW DIASTOLIC CM 0.96 cm RESU LTING AGENCY LA VOLUME 48.6 ml RESULTING AGENCY LV EF(estimated)% 55 RESULTING AGENCY Anatomical Region Laterality Modality CARDIO N/A Ultrasound Narrative 06/03/2023 11:02 AM CDT Transthoracic Echocardiography Report (TTE) Patient name ? WOODY JOSELYN ? 1960 Patient ID (I) ? [id number] ? Study Date06/03/2023 Technical quality: Adequate Type of Study: TTE procedure: Adult Trans Thoracic Echo 2D Complete. Priority:RoutineHR: 64 bpmBP: 130/77 mmHg Conclusions Summary LV systolic function is preserved. Ejection fraction is estimated at 55% The mitral valve is Myxomatous. Moderate posteriorly directed mitral regurgitation is seen. movement of the anterior mitral leaflet appears to be restricted and might be consistent with rheumatic valve disease. There is flow acceleration across the mitral valve with a peak gradient of 6 mm of mercury. Findings Mitral Valve The mitral valve is Myxomatous. Moderate posteriorly directed mitral regurgitation is seen. movement of the anterior mitral leaflet appears to be restricted and might be consistent with rheumatic valve disease. There is flow acceleration across the mitral valve with a peak gradient of 6 mm of mercury. Aortic Valve Aortic valve is Most probably tricuspid. Leaflet mobility is Preserved. No significant aortic stenosis or regurgitation is noted Tricuspid Valve Tricuspid valve is myxomatous. Leaflet mobility is preserved. Mild tricuspid regurgitation is seen. Pulmonic Valve Pulmonic valve is not well visualized. Left Atrium Left atrium appears to be dilated. Left Ventricle LV systolic function is preserved. Ejection fraction is estimated at 55% Impaired LV diastolic filling Right Atrium Right atrium appears to be of normal size Right Ventricle Right ventricle appears to be of normal size and function Pericardial Effusion No evidence of pericardial effusion. Pleural Effusion . Miscellaneous Color and spectral Doppler imaging was used for evaluation. Images are of limited quality due to body habitus and acoustic windows Valves Mitral Valve Area (PHT): 2.34 cm^2 Peak E-Wave: 1.26 m/s ?Deceleration Time: 317 msec Peak A-Wave: 1.5 m/s ? MR Velocity: 5.73 m/s Peak Gradient: 6.35 mmHg P1/2t: 94 msec Tissue Doppler E' Velocity: 0.06 m/s ?E/E':19 A' Velocity: 0.06 m/s ?E/Lat E': 19 E/A Ratio: 0.84 ?E/Med E':20 Aortic Valve Area (continuity): 1.64 cm^2 ? Mean Velocity: 1.03 m/s Area (VTI):1.81 cm^2 ? Mean Gradient: 5 mmHg Peak Velocity: 1.57 m/s ?AV VTI: 30.2 cm Peak Gradient: 9.86 mmHg Cusp Separation: 1.7 cm Tricuspid Valve Peak E-Wave: 0.41 m/s Peak Gradient: 0.68 mmHg TR Velocity: 2.1 m/s TR Gradient: 17.64 mmHg Pulmonic Valve Peak Velocity: 0.65 m/s Peak Gradient: 1.7 mmHg LVOT Peak Velocity: 0.95 m/s ? Mean Velocity: 0.53 m/s Peak Gradient: 4 mmHg ? Mean Gradient: 1 mmHg LVOT Diameter: 2 cm ? LVOT VTI: 17.4 cm Stroke Volume: 55 ml ?Stroke Volume Index: 33.33 ml/m^2 Structures Left Ventricle Diastolic Dimension: 4.65 cm ? Systolic Dimension: 3.07 cm Septum Diastolic: 1 cm ? Septum Systolic: 1.08 cm PW Diastolic: 0.96 cm ?PW Systolic: 1.46 cm Diastolic Length: 23.4 cm ?Systolic Length: 12.6 cm EF Calculated: 70.44% ?CI: 2.12 l/min*m^2 CO: 3.5 l/min RWT: 0.41 ?LV EDV: 94.4 ml FS: 33.98 % ?LV EDV Index: 57 m^2 LV Length: 5.88 cm ? LV ESV: 27.9 ml LVOT Diameter: 2 cm ?LV ESV Index: 17 m^2 Right Ventricle ? Diastolic Dimension: 0.69 cm Left Atrium LA Dimension: 3.4 cm ?LA Area: 16.3 cm^2 LA/Aorta: 1 ? LA Volume: 48.6 ml LA Systolic Pressure: 25.72 mmHg ?LA Index: 29ml/m^2 Right Atrium ?RA Area: 10.9 cm^2 Great Vessels Aorta Billing ICD 9 Codes 1) 148.9-Atrial Fibrillation/ Atrial Flutter. Demographics Age ?62 ?Gender ?Female Race ? Black ? Height ?65 in. ?Weight ?130.29 lbs. ?BMI (BSA) ? 21.68 kg/m^2 ?(1.65 m^2) Liberal Arts Teacher ?Edilson Wilburn ?? Room ?ED02 Interpreting ? Chuy Strong ?? Referring Physician ?Dain ? Physician Procedure Note Dain Garcia MD - 06/03/2023 Transthoracic Echocardiography Report (TTE) Patient name SAUNDRA RauschO.B. 1960 Patient ID (UPI) [id number] Study Date06/03/2023 Technical quality: Adequate Type of Study: TTE procedure: Adult Trans Thoracic Echo 2D Complete. Priority:RoutineHR: 64 bpmBP: 130/77 mmHg Conclusions Summary LV systolic function is preserved. Ejection fraction is estimated at 55% The mitral valve is Myxomatous. Moderate posteriorly directed mitral regurgitation is seen. movement of the anterior mitral leaflet appears to be restricted and might be consistent with rheumatic valve disease. There is flow acceleration across the mitral valve with a peak gradient of 6 mm of mercury. Findings Mitral Valve The mitral valve is Myxomatous. Moderate posteriorly directed mitral regurgitation is seen. movement of the anterior mitral leaflet appears to be restricted and might be consistent with rheumatic valve disease. There is flow acceleration across the mitral valve with a peak gradient of 6 mm of mercury. Aortic Valve Aortic valve is Most probably tricuspid. Leaflet mobility is Preserved. No significant aortic stenosis or regurgitation is noted Tricuspid Valve Tricuspid valve is myxomatous. Leaflet mobility is preserved. Mild tricuspid regurgitation is seen. Pulmonic Valve Pulmonic valve is not well visualized. Left Atrium Left atrium appears to be dilated. Left Ventricle LV systolic function is preserved. Ejection fraction is estimated at 55% Impaired LV diastolic filling Right Atrium Right atrium appears to be of normal size Right Ventricle Right ventricle appears to be of normal size and function Pericardial Effusion No evidence of pericardial effusion. Pleural Effusion . Miscellaneous Color and spectral Doppler imaging was used for evaluation. Images are of limited quality due to body habitus and acoustic windows Valves Mitral Valve Area (PHT): 2.34 cm^2 Peak E-Wave: 1.26 m/s Deceleration Time: 317 msec Peak A-Wave: 1.5 m/s MR Velocity: 5.73 m/s Peak Gradient: 6.35 mmHg P1/2t: 94 msec Tissue Doppler E' Velocity: 0.06 m/s E/E':19 A' Velocity: 0.06 m/s E/Lat E': 19 E/A Ratio: 0.84 E/Med E':20 Aortic Valve Area (continuity): 1.64 cm^2 Mean Velocity: 1.03 m/s Area (VTI):1.81 cm^2 Mean Gradient: 5 mmHg Peak Velocity: 1.57 m/s AV VTI: 30.2 cm Peak Gradient: 9.86 mmHg Cusp Separation: 1.7 cm Tricuspid Valve Peak E-Wave: 0.41 m/s Peak Gradient: 0.68 mmHg TR Velocity: 2.1 m/s TR Gradient: 17.64 mmHg Pulmonic Valve Peak Velocity: 0.65 m/s Peak Gradient: 1.7 mmHg LVOT Peak Velocity: 0.95 m/s Mean Velocity: 0.53 m/s Peak Gradient: 4 mmHg Mean Gradient: 1 mmHg LVOT Diameter: 2 cm LVOT VTI: 17.4 cm Stroke Volume: 55 ml Stroke Volume Index: 33.33 ml/m^2 Structures Left Ventricle Diastolic Dimension: 4.65 cm Systolic Dimension: 3.07 cm Septum Diastolic: 1 cm Septum Systolic: 1.08 cm PW Diastolic: 0.96 cm PW Systolic: 1.46 cm Diastolic Length: 23.4 cm Systolic Length: 12.6 cm EF Calculated: 70.44% CI: 2.12 l/min*m^2 CO: 3.5 l/min RWT: 0.41 LV EDV: 94.4 ml FS: 33.98 % LV EDV Index: 57 m^2 LV Length: 5.88 cm LV ESV: 27.9 ml LVOT Diameter: 2 cm LV ESV Index: 17 m^2 Right Ventricle Diastolic Dimension: 0.69 cm Left Atrium LA Dimension: 3.4 cm LA Area: 16.3 cm^2 LA/Aorta: 1 LA Volume: 48.6 ml LA Systolic Pressure: 25.72 mmHg LA Index: 29ml/m^2 Right Atrium RA Area: 10.9 cm^2 Great Vessels Aorta Billing ICD 9 Codes 1) 148.9-Atrial Fibrillation/ Atrial Flutter. Demographics Age 62 Gender Female Race Black Height 65 in. Weight 130.29 lbs. BMI (BSA) 21.68 kg/m^2 (1.65 m^2) Liberal Arts Teacher Edilson Wilburn Room ED02 Interpreting Chuy Strong Referring Physician Dain Physician us Tonya Goff ADMINISTRATIVE REPRESENTATIVE, ENGINEERING JOB TITLES IMG ECHO ORDERABLES E dited Result - Final * (ABNORMAL) CBC with Auto Differential (06/03/2023 4:13 AM CDT) Only the most recent of2 resultswithin the time period is included. WBC 17.57(H) 4.00 - 12.00 10(3)/mcL 06/03/2023 5:29 AM CDT [facility] RBC 4.60 3.80 - 5.30 10(6)/mcL 06/03/2023 5:29 AM CDT [facility] HEMOGLOBIN (HGB) 12.6 12.0 - 15.8 g/dL 06/03/2023 5:29 AM CDT [facility] HEMATOCRIT (HCT) 36.5 36.0 - 47.0 % 06/03/2023 5:29 AM CDT [facility] MCV 79.3(L) 82.0 - 96.0 fL 06/03/2023 5:29 AM CDT [facility] MCH 27.4 26.0 - 34.0 pg 06/03/2023 5:29 AM CDT [facility] MCHC 34.5 31.0 - 36.0 g/dL 06/03/2023 5:29 AM CDT [facility] PLATELET COUNT 213 140 - 440 10(3)/[facility] 06/03/2023 5:29 AM CDT [facility] RDW 13.6 11.8 - 15.5 % 06/03/2023 5:29 AM CDT [facility] MPV 10.5 9.7 - 12.4 fL 06/03/2023 5:29 AM CDT [facility] NEUTROPHILS 79.3(H) 47.0 - 73.0 % 06/03/2023 5:29 AM CDT [facility] LYMPHOCYTES 13.1(L) 18.0 - 42.0 % 06/03/2023 5:29 AM CDT [facility] MONOCYTES 7.0 4.0 - 12.0 % 06/03/2023 5:29 AM CDT [facility] EOSINOPHILS 0.3 0.0 - 5.0 % 06/03/2023 5:29 AM CDT [facility] BASOPHILS 0.3 0.0 - 1.0 % 06/03/2023 5:29 AM CDT [facility] ABSOLUTE NEUTROPHILS 13.92(H) 1.60 - 7.70 10(3)/mcL 06/03/2023 5:29 AM CDT [facility] ABSOLUTE LYMPHOCYTES 2.31 1.30 - 3.20 10(3)/[facility] 06/03/2023 5:29 AM CDT [facility] ABSOLUTE MONOCYTES 1.23(H) 0.20 - 1.00 10(3)/mcL 06/03/2023 5:29 AM CDT [facility] ABSOLUTE EOSINOPHIL 0.06 0.00 - 0.40 10(3)/[facility] 06/03/2023 5:29 AM CDT [facility] ABSOLUTE BASOPHILS 0.05 0.00 - 0.10 10(3)/[facility] 06/03/2023 5:29 AM CDT [facility] NRBC PER 100 WBC 0 06/03/20 5:29 AM CDT [facility] Blood Venipuncture / Unknown 06/03/2023 4:13 AM CDT 06/03/2023 5:25 AM CDT us Tonya Weineriday ADMINISTRATIVE REPRESENTATIVE, ENGINEERING JOB TITLES HEMATOLOGY ORDERABLES Final Result [facility] [address] [place] [address] * BMP with Ca, Total (06/03/2023 4:13 AM CDT) SODIUM 144 136 - 144 mmol/L 06/03/2023 5:55 AM CDT [facility] POTASSIUM 4.1 3.5 - 5.1 mmol/L 06/03/2023 5:55 AM CDT [facility] CHLORIDE 109 100 - 110 mmol/L 06/03/2023 5:55 AM CDT [facility] CO2, VENOUS 25 22 - 32 mmol/L 06/03/2023 5:55 AM CDT [facility] ANION GAP 14.1 8.0 - 20.0 mmol/L 06/03/2023 5:55 AM CDT [facility] GLUCOSE 92 70 - 99 mg/dL 06/03/2023 5:55 AM CDT [facility] BUN 18 8 - 23 mg/dL 06/03/2023 5:55 AM CDT [facility] CREATININE, BLOOD 0.95 0.60 - 1.10 mg/dL 06/03/2023 5:55 AM CDT [facility] BUN/CREATININE RATIO 19 12 - 20 ratio 06/03/2023 5:55 AM CDT [facility] CALCIUM 9.2 8.7 - 10.5 mg/dL 06/03/2023 5:55 AM CDT [facility] GFR, ESTIMATED >60 >=60 06/03/2023 5:55 AM CDT [facility] Comment: Creatinine Clearance is the preferred criteria for selecting drug dose adjustments in renally impaired patients. ??The GFR is provided as additional pertinent clinical information. GFR is reported in mL/min/1.73 sq m. Calculation based on the Chronic Kidney Disease Epidemiology Collaboration (CKD- EPI) equation refit without adjustment for race. GFR, EST. >60 >=60 023 5:55 AM CDT [facility] GFR, EST. NONAFRICAN 60 >=60 06/03/2023 5:55 AM CDT [facility] Blood Venipuncture / Unknown 06/03/2023 4:13 AM CDT 06/03/2023 5:24 AM CDT Tonya Goff APRN, ENGINEERING JOB TITLES CHEMISTRY ORDERABLES Final Result [facility] [address] [place] [address] * RHYTHM STRIP (06/03/2023 12:00 AM CDT) Only the most recent of4 resultswithin the time period is included. 06/03/2023 us Provider Scan IMG ECG ORDERABLES Final Result SCAN * SARS-COV-2 BY MOLECULAR (06/02/2023 4:24 PM CDT) SARSCOV2 NOT DETECTED (Referenc e Range for this test is Not Detected) [facility] ID NOW B 06/02/2023 4:42 PM CDT [facility] Comment:This test was perfor med by a MOLECULAR, NON-PCR method Other NASAL STRUCTURE / Unknown Non-Phlebotomy Collection / Unknown 06/02/2023 4:24 PM CDT 06/02/2023 4:28 PM CDT Narrative [facility] - 06/02/2023 4:42 PM CDT This test has been authorized by the FDA under an Emergency Use Authorization (EUA) only. Negative results should be treated as presumptive and, if inconsistent with clinical signs and symptoms or necessary for patient management, the patient should be tested with an alternative molecular assay. Negative results do not preclude SARS-CoV-2 infection or any other respiratory pathogen. Additional information for Clinicians can be found at: https://www.fda.gov/media/611534/download Additional information for Patients can be found at: https://www.fda.gov/media/479991/download us Tonya Goff ADMINISTRATIVE REPRESENTATIVE, ENGINEERING JOB TITLES MICROBIOLOGY - GENERA L ORDERABLES Final Result [facility] [address] [place] [address] * CT ANGIO CHEST W/WO CONTRAST WITH PP (POST PROCESSING) (06/02/2023 1:48 PM CDT) Anatomical Region Laterality Modality vascular N/A Computed Tomogra phy 06/02/2023 2:05 PM CDT Impressions 06/02/2023 2:08 PM CDT IMPRESSION: ?? 1. ?? Mild scattered ground-glass and bronchial wall thickening likely representing mild bronchitis. ??No confluent consolidation. Narrative 06/02/2023 2:08 PM CDT EXAM DESCRIPTION: ?? CT ANGIO CHEST W/WO CONTRAST WITH PP (POST PROCESSING) REASON FOR STUDY: ?? c/o SOB, cough, and congestion x 3 days. ? TECHNIQUE: CT angiogram of the chest performed with intravenous contrast using helical scanning technique with dynamic intravenous contrast injection. Reconstructed coronal and sagittal MPR images reviewed. All images stored on PACS. ?? 3D MIP images rendered on scanning unit and reviewed at time of interpretation. ??Automated exposure control was used as a dose optimization technique for this examination. CONTRAST TYPE/DOSE: ?? 100mL of IOPAMIDOL 76 % IV SOLN ??injected via ?? Intravenous COMPARISON: ?? None available REFERENCE: Per ACR white paper recommendations, unless otherwise specified no follow-up imaging is recommended for incidental renal and adrenal lesions per consensus recommendations based on imaging criteria. Further lab evaluation could be pursued based on clinical findings. FINDINGS: VASCULATURE: ?? No identified pulmonary emboli. LUNGS: ?? There is mild emphysema. ??There is mild bronchial wall thickening. ??There is scattered ground-glass in the lung bases and left upper lobe. ??There is also associated linear atelectasis PLEURA: ?? No effusion. No pneumothorax. MEDIASTINUM/SHERRON: ?? Small bilateral hilar lymph nodes are within normal limits but possibly reactive. HEART: ?? Heart size is normal with no pericardial effusion. AXILLA: ?? No adenopathy. CHEST WALL: ?? No masses. ??No subcutaneous air. HARDWARE/LINES/TUBES: ?? None. UPPER ABDOMEN: ?? No significant abnormality. MUSCULOSKELETAL: ?? No significant abnormality. OTHER: ?? No significant abnormality. THIS IS AN ELECTRONICALLY VERIFIED FINAL REPORT 06/02/2023 2:05 PM - Electronically signed by ??Joshua Burnham M.D. KN: ASHLEY D: ??06/02/2023 2:05 PM T: ??06/02/2023 2:05 PM Report ID: [id number] Reading Location: ??[id number] Procedure Note Joshua Burnham MD - 06/02/2023 EXAM DESCRIPTION: CT ANGIO CHEST W/WO CONTRAST WITH PP (POST PROCESSING) REASON FOR STUDY: c/o SOB, cough, and congestion x 3 days. TECHNIQUE: CT angiogram of the chest performed with intravenous contrast using helical scanning technique with dynamic intravenous contrast injection. Reconstructed coronal and sagittal MPR images reviewed. All images stored on PACS. 3D MIP images rendered on scanning unit and reviewed at time of interpretation. Automated exposure control was used as a dose optimization technique for this examination. CONTRAST TYPE/DOSE: 100mL of IOPAMIDOL 76 % IV SOLN injected via Intravenous COMPARISON: None available REFERENCE: Per ACR white paper recommendations, unless otherwise specified no follow-up imaging is recommended for incidental renal and adrenal lesions per consensus recommendations based on imaging criteria. Further lab evaluation could be pursued based on clinical findings. FINDINGS: VASCULATURE: No identified pulmonary emboli. LUNGS: There is mild emphysema. There is mild bronchial wall thickening. There is scattered ground-glass in the lung bases and left upper lobe. There is also associated linear atelectasis PLEURA: No effusion. No pneumothorax. MEDIASTINUM/SHERRON: Small bilateral hilar lymph nodes are within normal limits but possibly reactive. HEART: Heart size is normal with no pericardial effusion. AXILLA: No adenopathy. CHEST WALL: No masses. No subcutaneous air. HARDWARE/LINES/TUBES: None. UPPER ABDOMEN: No significant abnormality. MUSCULOSKELETAL: No significant abnormality. OTHER: No significant abnormality. THIS IS AN ELECTRONICALLY VERIFIED FINAL REPORT 06/02/2023 2:05 PM - Electronically signed by Joshua Burnham M.D. KN: [id number] Report ID: [id number] Reading Location: [id number] IMPRESSION: 1. Mild scattered ground-glass and bronchial wall thickening likely representing mild bronchitis. No confluent consolidation. us Rahat Roche MD IMG CT ORDERABLES Fi nal Result * XR CHEST 2 VIEWS (06/02/2023 8:54 AM CDT) Anatomical Region Laterality Modality Chest N/A Digital Radiogra phy 06/02/2023 8:58 AM CDT Impressions 06/02/2023 9:01 AM CDT IMPRESSION: Mildly hyperinflated lungs without definite evidence of acute cardiopulmonary process. Narrative 06/02/2023 9:01 AM CDT EXAM DESCRIPTION: XR CHEST 2 VIEWS REASON FOR STUDY: complaining of SOB, cough, and congestion x 2-3 days worse last night. pt state she used an inhale and had no relief ?? TECHNIQUE: Frontal and lateral ??radiographic view(s) of the chest. COMPARISON: None FINDINGS: The heart, mediastinum, and pulmonary vasculature are grossly unremarkable. ??There are mild atherosclerotic changes of the aorta. ??There is no definite evidence of a pneumothorax. ??There is no definite evidence of focal consolidation or pleural effusion. ?? The lungs are mildly hyperinflated. There is a minimal S shaped scoliotic curvature of the spine with degenerative changes. THIS IS AN ELECTRONICALLY VERIFIED FINAL REPORT 06/02/2023 8:58 AM - Electronically signed by ??Priscilla Quarles D.O. PS: PS D: ??06/02/2023 8:58 AM T: ??06/02/2023 8:58 AM Report ID: [id number] Reading Location: ??[id number] Procedure Note Priscilla Quarles DO - 06/02/2023 EXAM DESCRIPTION: XR CHEST 2 VIEWS REASON FOR STUDY: complaining of SOB, cough, and congestion x 2-3 days worse last night. pt state she used an inhale and had no relief TECHNIQUE: Frontal and lateral radiographic view(s) of the chest. COMPARISON: None FINDINGS: The heart, mediastinum, and pulmonary vasculature are grossly unremarkable. There are mild atherosclerotic changes of the aorta. There is no definite evidence of a pneumothorax. There is no definite evidence of focal consolidation or pleural effusion. The lungs are mildly hyperinflated. There is a minimal S shaped scoliotic curvature of the spine with degenerative changes. THIS IS AN ELECTRONICALLY VERIFIED FINAL REPORT 06/02/2023 8:58 AM - Electronically signed by Priscilla Quarles D.O. PS: PS Report ID: [id number] Reading Location: [id number] IMPRESSION: Mildly hyperinflated lungs without definite evidence of acute cardiopulmonary process. us Rahat Roche MD IMG DIAGNOSTIC ORDER ADRIANNA Final Result * Gold Top Tube (06/02/2023 8:35 AM CDT) Blood No Phlebotomy Charged / Unknown 06/02/2023 8:35 AM CDT 06/02/2023 8:43 AM CDT us Rahat Roche MD CHEMISTRY ORDERABLES Final Result [facility] [place] [address] * Blue Top Tube (06/02/2023 8:35 AM CDT) Blood No Phlebotomy Charged / Unknown 06/02/2023 8:35 AM CDT 06/02/2023 8:43 AM CDT us Rahat Roche MD HEMATOLOGY ORDERABLE S Final Result Performing Organization Address City/[facility] Co de Phone Number [facility] [place] [address] * Troponin I (Trp I) (06/02/2023 8:35 AM CDT) TROPONIN I <0.300 <=0.300 ng/mL 06/02/2023 9:11 AM CDT [facility] Blood Venipuncture / Unknown 06/02/2023 8:35 AM CDT 06/02/2023 8:41 AM CDT Rahat Roche MD CHEMISTRY ORDERABLES Final Result Performing Organization Address [facility] de Phone Number [facility] [place] [address] * BNP (NT proBNP) (06/02/2023 8:35 AM CDT) NT PROBNP 40.2 36.0 - 125.0 pg/mL 06/02/2023 9:16 AM CDT [facility] Comment:NT-proBNP values < 3 00 pg/mL have a 99% negative predictive value for excluding acute congestive heart failure (CHF) in all age groups. In the absence of renal failure, CHF is suggested in adults < 50 years of age with a NT-pro BNP > 450 pg/mL; in adults 50-75 years of age with a NT-proBNP > 900 pg/mL; and in adults > 75 years of age with a NT-proBNP > 1800 pg/mL. For patients with an e-GFR < 60 a NT-proBNP > 1200 pg/mL yields a diagnostic sensitivity and specificity of 89% and 72% for acute CHF. ([facility] data) Blood Venipuncture / Unknown 06/02/2023 8:35 AM CDT 06/02/2023 8:41 AM CDT Rahat Roche MD CHEMISTRY ORDERABLES Final Result [facility] [place] [address] * (ABNORMAL) CMP (06/02/2023 8:35 AM CDT) SODIUM 142 136 - 144 mmol/L 06/02/2023 9:09 AM CDT [facility] POTASSIUM 3.6 3.5 - 5.1 mmol/L 06/02/2023 9:09 AM CDT [facility] CHLORIDE 106 100 - 110 mmol/L 06/02/2023 9:09 AM CDT [facility] CO2, VENOUS 25 22 - 32 mmol/L 06/02/2023 9:09 AM CDT [facility] ANION GAP 14.6 8.0 - 20.0 mmol/L 06/02/2023 9:09 AM CDT [facility] GLUCOSE 100(H) 70 - 99 mg/dL 06/02/2023 9:09 AM CDT [facility] BUN 18 8 - 23 mg/dL 06/02/2023 9:09 AM CDT [facility] CREATININE, BLOOD 1.00 0.60 - 1.10 mg/dL 06/02/2023 9:09 AM CDT [facility] BUN/CREATININE RATIO 18 12 - 20 ratio 06/02/2023 9:09 AM CDT [facility] TOTAL PROTEIN 6.5 6.0 - 8.3 g/dL 06/02/2023 9:09 AM CDT [facility] ALBUMIN 3.8 3.5 - 5.2 g/dL 06/02/2023 9:09 AM CDT [facility] Comment: The colormetric methods used for the determination of Albumin may lead to falsely elevated test results in patients suffering from renal failure or insufficiency due to interference with other proteins. A/G RATIO 1.4 1.0 - 2.0 06/02/2023 9:09 AM CDT [facility] CALCIUM 9.1 8.7 - 10.5 mg/dL 06/02/2023 9:09 AM CDT [facility] T BILI 0.2 0.2 - 1.2 mg/dL 06/02/2023 9:09 AM CDT [facility] SGOT (AST) 10 <=32 U/L 06/02/2023 9:09 AM CDT [facility] SGPT (ALT) 11 <=41 U/L 06/02/2023 9:09 AM CDT [facility] ALKALINE PHOSPHATASE 89 35 - 105 U/L 06/02/2023 9:09 AM CDT [facility] GFR, ESTIMATED >60 >=60 06/02/2023 9:09 AM CDT [facility] Comment: Creatinine Clearance is the preferred criteria for selecting drug dose adjustments in renally impaired patients. ??The GFR is provided as additional pertinent clinical information. GFR is reported in mL/min/1.73 sq m. Calculation based on the Chronic Kidney Disease Epidemiology Collaboration (CKD- EPI) equation refit without adjustment for race. GFR, EST. >60 >=60 023 9:09 AM CDT [facility] GFR, EST. NONAFRICAN 57(L) >=60 06/02/2023 9:09 AM CDT [facility] Blood Venipuncture / Unknown 06/02/2023 8:35 AM CDT 06/02/2023 8:41 AM CDT us Rahat Roche MD CHEMISTRY ORDERABLES Final Result [facility] [place] [address] * EKG 12 LEAD (06/02/2023 8:31 AM CDT) Ventricular Rate 85 BPM EXTERNAL EKG Atrial Rate 85 BPM EXTERNAL EKG P-R Interval 154 ms EXTERNAL EKG QRS Duration 78 ms EXTERNAL EKG Q-T Duration 374 ms EXTERNAL EKG QTC CALCULATION 445 ms EXTERNAL EKG P [place] 57 degrees EXTERNAL EKG R [place] 41 degrees EXTERNAL EKG T [place] 32 degrees EXTERNAL EKG 06/02/2023 8:31 AM CDT Impressions EXTERNAL EKG - 06/03/2023 11:10 AM CDT Normal sinus rhythm Possible Left atrial enlargement Borderline ECG No previous ECGs available Confirmed by Dain Strong ([id number]) on 06/03/2023 11:10:56 AM Narrative Procedure Note Dain Garcia MD - 06/03/2023 IMPRESSION: Normal sinus rhythm Possible Left atrial enlargement Borderline ECG No previous ECGs available Confirmed by Dain Strong ([id number]) on 06/03/2023 11:10:56 AM us Rahat Roche MD IMG ECG ORDERABLES F inal Result EXTERNAL EKG * EKG SCAN (06/02/2023 12:00 AM CDT) Only the most recent of2 resultswithin the time period is included. 06/02/2023 us Provider Scan IMG ECG ORDERABLES Final Result SCAN documented in this encounter Visit Diagnoses Diagnosis Acute respiratory failure with hypoxia (HCC)- Primary Acute respiratory failure COPD exacerbation (HCC) Obstructive chronic bronchitis with exacerbation Viral URI with cough Acute upper respiratory infections of unspecified site COPD exacerbation (HCC) Obstructive chronic bronchitis with exacerbation Atrial fibrillation with RVR (HCC) Atrial fibrillation Acute bronchitis Essential hypertension Unspecified essential hypertension Tobacco dependence Tobacco use disorder Hyperlipidemia Other and unspecified hyperlipidemia GERD (gastroesophageal reflux disease) Esophageal reflux Anxiety Anxiety state, unspecified COPD exacerbation (HCC) Obstructive chronic bronchitis with exacerbation documented in this encounter Admitting Diagnoses Diagnosis COPD exacerbation (HCC) Obstructive chronic bronchitis with exacerbation documented in this encounter Administered Medications Inactive Administered Medications - up to 3 most recent administrations Medication Order MAR Action Action Date Dose Rate Site acetaminophen (TYLENOL) suppository 650 mg 650 mg, Rectal, EVERY 4 HOURS PRN, Starting on Ailyn 06/02/23 at 1700, Until Tue06/03/23 at 1316, Mild pain or more severe pain if patient requests, Fever, If patient is taking oral intake without complications and both PO/IL orders are active, administer through the oral route. acetaminophen (TYLENOL) tablet 650 mg 650 mg, Oral, EVERY 4 HOURS PRN, Starting on Tue06/02/23 at 1700, Until Tue06/03/23 at 1316, Mild pain or more severe pain if patient requests, Fever, If patient is taking oral intake without complications and both PO/IL orders are active, administer through the oral route. albuterol (PROVENTIL, VENTOLIN) (2.5 MG/3ML) 0.083% nebulizer solution 2.5 mg 2.5 mg, Nebulization, EVERY 6 HOURS PRN, Starting on Tue06/02/23 at 2118, Until Tue06/03/23 at 1316, Wheezing, 1. For RTA Severity Level 1 2. Discontinue all albuterol and ipratropium ORDERS AND ORDER SET if assessment results for 2 consecutive days has been a level 1 and no PRN treatments have been administered in the same time period. 3. A new physician order is required to resume order set once discontinued.Indications:COPD exacerbation (HCC) atorvastatin (LIPITOR) tablet 20 mg 20 mg, Oral, DAILY, First dose on Tue06/03/23 at 0900, Until Discontinued, Do Not Crush Given 06/03/2023 9:45 AM CDT 20 mg azithromycin (ZITHROMAX) tablet 500 mg 500 mg, Oral, DAILY, 3 doses, First dose on Tue06/02/23 at 1800, Last dose on Tue06/04/23 at 0900, Indications: COPD exacerbation, bronchitisIndications:COPD exacerbation, bronchitis Given 06/03/2023 9:45 AM CDT 500 mg Given 06/02/2023 5:40 PM CDT 500 mg enoxaparin (LOVENOX) injection 40 mg 40 mg, Subcutaneous, EVERY 24 HOURS SCHEDULED (Daily), First dose on Tue06/02/23 at 1730, Until DiscontinuedIndications:Prophylaxis of Venous Thromboembolism famotidine (PEPCID) tablet 40 mg 40 mg, Oral, NIGHTLY, First dose on Tue06/02/23 at 2100, Until Discontinued, Indications: Symptomatic Gastroesophageal Reflux DiseaseIndications:Symptomatic Gastroesophageal Reflux Disease Given 06/02/2023 8:46 PM CDT 40 mg gabapentin (NEURONTIN) capsule 300 mg 300 mg, Oral, DAILY WITH BREAKFAST, First dose on Tue06/03/23 at 0800, Until Discontinued, Do Not Crush Given 06/03/2023 9:45 AM CDT 300 mg hydrALAZINE tablet 25 mg 25 mg, Oral, DAILY, First dose on Tue06/03/23 at 0900, Until DiscontinuedIndications:Hypertension Given 06/03/2023 9:46 AM CDT 25 mg iopamidol (ISOVUE-370) 76 % injection 100 mL 100 mL, Intravenous, ONCE, 1 dose, On Tue06/02/23 at 1300 Given 06/02/2023 1:46 PM CDT 100 mL ipratropium-albuterol (DUO-NEB) 0.5-2.5 (3) MG/3ML nebulizer solution 3 mL 3 mL, Nebulization, ONCE, 1 dose, On Tue06/02/23 at 0900 Given 06/02/2023 8:38 AM CDT 3 mL ipratropium-albuterol (DUO-NEB) 0.5-2.5 (3) MG/3ML nebulizer solution 3 mL 3 mL, Nebulization, ONCE, 1 dose, On Tue06/02/23 at 1030 Given 06/02/2023 10:06 AM CDT 3 mL ipratropium-albuterol (DUO-NEB) 0.5-2.5 (3) MG/3ML nebulizer solution 3 mL 3 mL, Nebulization, ONCE, 1 dose, On Tue06/02/23 at 1100 Given 06/02/2023 1:10 PM CDT 3 mL ipratropium-albuterol (DUO-NEB) 0.5-2.5 (3) MG/3ML nebulizer solution 3 mL 3 mL, Nebulization, 4 TIMES DAILY, First dose on Tue06/02/23 at 2100, Until Discontinued Given 06/02/2023 8:38 PM CDT 3 mL losartan (COZAAR) tablet 25 mg 25 mg, Oral, DAILY, First dose on Tue06/03/23 at 0900, Until Discontinued Given 06/03/2023 9:45 AM CDT 25 mg magnesium hydroxide (MILK OF MAGNESIA) 400 MG/5ML suspension 30 mL 30 mL, Oral, DAILY PRN, Starting on Tue06/02/23 at 1657, Until Tue06/03/23 at 1316, Constipation - 3rd line, Magnesium hydroxide 400 mg/5 ml = 166.7 mg elemental magnesium/5ml. Hold for loose stools (loose, liquid, mucoid, soft, watery stool that takes the shape of the container) or greater than 2 moderate or larger stools in 24hrsIndications:Constipation melatonin tablet 6 mg 6 mg, Oral, NIGHTLY PRN, Starting on Tue06/02/23 at 1657, Until Tue06/03/23 at 1316, Other, Sleep metoprolol tartrate (LOPRESSOR) tablet 25 mg 25 mg, Oral, 2 TIMES DAILY, First dose on Tue06/03/23 at 1200, Until Discontinued Given 06/03/2023 12:44 PM CDT 25 mg nicotine (NICODERM CQ) 14 MG/24HR patch 1 Patch 1 Patch, Transdermal, DAILY PRN, Starting on Tue06/02/23 at 1700, Until Tue06/03/23 at 1316, Administer over 24 Hours, Other, Nicotine dependency, Use if smokeless less than 10 cigarettes/day. ondansetron (ZOFRAN) injection 4 mg 4 mg, Intravenous, EVERY 6 HOURS PRN, Starting on Tue06/02/23 at 1657, Until Tue06/03/23 at 1316, Nausea - 1st line, 1. First Line Antiemetic. 2. Use Injection only if patient unable to tolerate oral medications. ondansetron (ZOFRAN-ODT) disintegrating tablet 4 mg 4 mg, Oral, EVERY 6 HOURS PRN, Starting on Tue06/02/23 at 1657, Until Tue06/03/23 at 1316, Nausea - 1st line, 1. First Line Antiemetic. 2. Use PO form unless unable to tolerate PO medications, then use Injection oxybutynin (DITROPAN-XL) CR tablet 5 mg 5 mg, Oral, 2 times daily, First dose on Tue06/02/23 at 2100, Until Discontinued, Do not crush Given 06/03/2023 9:45 AM CDT 5 mg Given 06/02/2023 8:46 PM CDT 5 mg polyethylene glycol (GLYCOLAX, MIRALAX) packet 17 g 17 g, Oral, 2 TIMES DAILY PRN, Starting on Tue06/02/23 at 1657, Until Tue06/03/23 at 1316, Constipation - 1st line, Dilute dose in 120 - 240 mL of beverage.Hold for loose stools (loose, liquid, mucoid, soft, watery stool that takes the shape of the container) or greater than 2 moderate or larger stools in 24hrsIndications:Constipation predniSONE (DELTASONE) tablet 60 mg 60 mg, Oral, ONCE, 1 dose, On Tue06/02/23 at 1000 Given 06/02/2023 9:40 AM CDT 60 mg predniSONE (DELTASONE) tablet 60 mg 60 mg, Oral, DAILY WITH BREAKFAST, 4 doses, First dose on Tue06/03/23 at 0800, Last dose on Tue06/06/23 at 0800 Given 06/03/2023 9:45 AM CDT 60 mg senna (SENOKOT) tablet 8.6 mg 8.6 mg (1 Tablet), Oral, 2 TIMES DAILY PRN, Starting on Tue06/02/23 at 1657, Until Tue06/03/23 at 1316, Constipation - 2nd line documented in this encounter Active and Recently Administered Medications Times are shown in CDT. Scheduled Medication Order 06/01/2023 06/02/2023 06/03/2023 atorvastatin (LIPITOR) tablet 20 mg 20 mg, Oral, DAILY, First dose on Tue06/03/23 at 0900, Until Discontinued, Do Not Crush 0945 (Given - Provider: Odessa Miles RN) azithromycin (ZITHROMAX) tablet 500 mg 500 mg, Oral, DAILY, 3 doses, First dose on Tue06/02/23 at 1800, Last dose on Tue06/04/23 at 0900, Indications: COPD exacerbation, bronchitis 1740 (Given - Provider: Maren Friend RN) 0945 (Given - Provider: Odessa Miles RN) enoxaparin (LOVENOX) injection 40 mg 40 mg, Subcutaneous, EVERY 24 HOURS SCHEDULED (Daily), First dose on Tue06/02/23 at 1730, Until Discontinued 1730 (Not Given - Provider: Maren Friend RN - Reason: Patient/family refused) 0900 (Not Given - Provider: Odessa Miles RN - Reason: Patient/family refused) famotidine (PEPCID) tablet 40 mg 40 mg, Oral, NIGHTLY, First dose on Tue06/02/23 at 2100, Until Discontinued, Indications: Symptomatic Gastroesophageal Reflux Disease 2045 (Given - Provider: Fabiola Puente, RN) fluticasone (FLONASE) nasal spray 2 [place] 2 [place], Nasal, DAILY, First dose on Tue06/03/23 at 0900, Until Discontinued, Dose is for each nostril. 0900 (Not Given - Provider: Odessa Miles RN - Reason: Patient/family refused) gabapentin (NEURONTIN) capsule 300 mg 300 mg, Oral, DAILY WITH BREAKFAST, First dose on Tue06/03/23 at 0800, Until Discontinued, Do Not Crush 0945 (Given - Provider: Odessa Miles, RN) hydrALAZINE tablet 25 mg 25 mg, Oral, DAILY, First dose on Tue06/03/23 at 0900, Until Discontinued 0946 (Given - Provider: Odessa Miles, DEANN) iopamidol (ISOVUE-370) 76 % injection 100 mL (COMPLETED) 100 mL, Intravenous, ONCE, 1 dose, On Tue06/02/23 at 1300 1346 (Given - Provider: Halie Fay, RT(R) (CT)) ipratropium-albuterol (DUO-NEB) 0.5-2.5 (3) MG/3ML nebulizer solution 3 mL (COMPLETED) 3 mL, Nebulization, ONCE, 1 dose, On Tue06/02/23 at 0900 0838 (Given - Provider: Gladys Wooten, RT) ipratropium-albuterol (DUO-NEB) 0.5-2.5 (3) MG/3ML nebulizer solution 3 mL (COMPLETED) 3 mL, Nebulization, ONCE, 1 dose, On Tue06/02/23 at 1030 1006 (Given - Provider: Gladys Wooten, RT) ipratropium-albuterol (DUO-NEB) 0.5-2.5 (3) MG/3ML nebulizer solution 3 mL (COMPLETED) 3 mL, Nebulization, ONCE, 1 dose, On Tue06/02/23 at 1100 1310 (Given - Provider: Gladys Wooten, RT) ipratropium-albuterol (DUO-NEB) 0.5-2.5 (3) MG/3ML nebulizer solution 3 mL (CANCELED) 3 mL, Nebulization, 4 TIMES DAILY, First dose on Tue06/02/23 at 2100, Until Discontinued 2037 (Given - Provider: Maren Fischer, NEW ORDER CLERK) losartan (COZAAR) tablet 25 mg 25 mg, Oral, DAILY, First dose on Tue06/03/23 at 0900, Until Discontinued 0945 (Given - Provider: Odessa Miles, RN) metoprolol tartrate (LOPRESSOR) tablet 25 mg 25 mg, Oral, 2 TIMES DAILY, First dose on Tue06/03/23 at 1200, Until Discontinued 124 (Given - Provider: Odessa Miles, RN) oxybutynin (DITROPAN-XL) CR tablet 5 mg 5 mg, Oral, 2 times daily, First dose on Tue06/02/23 at 2100, Until Discontinued, Do not crush 2045 (Given - Provider: Fabiola Puente RN) 0945 (Given - Provider: Odessa Miles, DEANN) predniSONE (DELTASONE) tablet 60 mg (COMPLETED) 60 mg, Oral, ONCE, 1 dose, On Tue06/02/23 at 1000 0940 (Given - Provider: Josefina Crain, DEANN) predniSONE (DELTASONE) tablet 60 mg 60 mg, Oral, DAILY WITH BREAKFAST, 4 doses, First dose on Tue06/03/23 at 0800, Last dose on Tue06/06/23 at 0800 0945 (Given - Provider: Odessa Miles RN) venlafaxine (EFFEXOR) tablet 75 mg 75 mg, Oral, 3 TIMES DAILY, First dose on Tue06/02/23 at 2100, Until Discontinued 2099 (Not Given - Provider: Fabiola Puente RN - Reason: Patient/family refused) 0900 (Not Given - Provider: Odessa Miles RN - Reason: Patient/family refused) PRN Medication Order 06/01/2023 06/02/2023 06/03/2023 acetaminophen (TYLENOL) suppository 650 mg(Linked Group 1) 650 mg, Rectal, EVERY 4 HOURS PRN, Starting on Tue06/02/23 at 1700, Until Tue06/03/23 at 1316, Mild pain or more severe pain if patient requests, Fever, If patient is taking oral intake without complications and both PO/IL orders are active, administer through the oral route. acetaminophen (TYLENOL) tablet 650 mg(Linked Group 1) 650 mg, Oral, EVERY 4 HOURS PRN, Starting on Tue06/02/23 at 1700, Until Tue06/03/23 at 1316, Mild pain or more severe pain if patient requests, Fever, If patient is taking oral intake without complications and both PO/IL orders are active, administer through the oral route. albuterol (PROVENTIL, VENTOLIN) (2.5 MG/3ML) 0.083% nebulizer solution 2.5 mg 2.5 mg, Nebulization, EVERY 6 HOURS PRN, Starting on Tue06/02/23 at 2118, Until Tue06/03/23 at 1316, Wheezing, 1. For RTA Severity Level 1 2. Discontinue all albuterol and ipratropium ORDERS AND ORDER SET if assessment results for 2 consecutive days has been a level 1 and no PRN treatments have been administered in the same time period. 3. A new physician order is required to resume order set once discontinued. diazePAM (VALIUM) tablet 5 mg 5 mg, Oral, EVERY 12 HOURS PRN, Starting on Tue06/02/23 at 1713, Until Tue06/03/23 at 1316, Anxiety magnesium hydroxide (MILK OF MAGNESIA) 400 MG/5ML suspension 30 mL 30 mL, Oral, DAILY PRN, Starting on Tue06/02/23 at 1657, Until Tue06/03/23 at 1316, Constipation - 3rd line, Magnesium hydroxide 400 mg/5 ml = 166.7 mg elemental magnesium/5ml. Hold for loose stools (loose, liquid, mucoid, soft, watery stool that takes the shape of the container) or greater than 2 moderate or larger stools in 24hrs melatonin tablet 6 mg 6 mg, Oral, NIGHTLY PRN, Starting on Tue06/02/23 at 1657, Until Tue06/03/23 at 1316, Other, Sleep nicotine (NICODERM CQ) 14 MG/24HR patch 1 Patch 1 Patch, Transdermal, DAILY PRN, Starting on Tue06/02/23 at 1700, Until Tue06/03/23 at 1316, Administer over 24 Hours, Other, Nicotine dependency, Use if smokeless less than 10 cigarettes/day. ondansetron (ZOFRAN) injection 4 mg(Linked Group 2) 4 mg, Intravenous, EVERY 6 HOURS PRN, Starting on Tue06/02/23 at 1657, Until Tue06/03/23 at 1316, Nausea - 1st line, 1. First Line Antiemetic. 2. Use Injection only if patient unable to tolerate oral medications. ondansetron (ZOFRAN-ODT) disintegrating tablet 4 mg(Linked Group 2) 4 mg, Oral, EVERY 6 HOURS PRN, Starting on Tue06/02/23 at 1657, Until Tue06/03/23 at 1316, Nausea - 1st line, 1. First Line Antiemetic. 2. Use PO form unless unable to tolerate PO medications, then use Injection polyethylene glycol (GLYCOLAX, MIRALAX) packet 17 g 17 g, Oral, 2 TIMES DAILY PRN, Starting on Tue06/02/23 at 1657, Until Tue06/03/23 at 1316, Constipation - 1st line, Dilute dose in 120 - 240 mL of beverage.Hold for loose stools (loose, liquid, mucoid, soft, watery stool that takes the shape of the container) or greater than 2 moderate or larger stools in 24hrs senna (SENOKOT) tablet 8.6 mg 8.6 mg (1 Tablet), Oral, 2 TIMES DAILY PRN, Starting on Tue06/02/23 at 1657, Until Tue06/03/23 at 1316, Constipation - 2nd line Linked Groups Order Group 1: acetaminophen (TYLENOL) tablet 650 mgJump to med 650 mg, Oral, EVERY 4 HOURS PRN, Starting on Tue06/02/23 at 1700, Until Tue06/03/23 at 1316, Mild pain or more severe pain if patient requests, Fever, If patient is taking oral intake without complications and both PO/IL orders are active, administer through the oral route. Or acetaminophen (TYLENOL) suppository 650 mgJump to med 650 mg, Rectal, EVERY 4 HOURS PRN, Starting on Tue06/02/23 at 1700, Until Tue06/03/23 at 1316, Mild pain or more severe pain if patient requests, Fever, If patient is taking oral intake without complications and both PO/IL orders are active, administer through the oral route. Group 2: ondansetron (ZOFRAN-ODT) disintegrating tablet 4 mgJump to med 4 mg, Oral, EVERY 6 HOURS PRN, Starting on Ailyn 06/02/23 at 1657, Until Tue06/03/23 at 1316, Nausea - 1st line, 1. First Line Antiemetic. 2. Use PO form unless unable to tolerate PO medications, then use Injection Or ondansetron (ZOFRAN) injection 4 mgJump to med 4 mg, Intravenous, EVERY 6 HOURS PRN, Starting on Ailyn 06/02/23 at 1657, Until Tue06/03/23 at 1316, Nausea - 1st line, 1. First Line Antiemetic. 2. Use Injection only if patient unable to tolerate oral medications. documented in this encounter Care Teams Sleeve Setter Safety Stitch Relationship Specialty Start Date End Date Brandon Chavez MD [address] [facility] [address] [place] [address] PCP - General Family Medicine 06/13/22 documented as of this encounter
--- OUTSIDE RECORDS SUMMARY | 2024-10-27 11:04 | XMS_ITS | Encounter Summary ---
Author Organization [facility] [employer] Care Team Providers Care Assistant Sales Manager Name Role Phone Hung Pereira APRN, MIKE Primary Care Provider + Encounter Details Date Type Department Care Team (Latest Contact Info) Description 07/20/2020 Travel Social History Tobacco Use Types Packs/Day [...] AM CDT documented as of this encounter Functional Status documented as of this encounter Plan of Treatment Upcoming Encounters Date Type Department Care Team (Late st Contact Info) Description 09/13/2025 11:00 AM APPEALS OFFICER [facility] - [facility]iology - [place] [address] [place] [phone] Vane Contreras APRN, CARDIOVASCULAR TECHNICIAN [address] [place] [address] documented as of this encounter Visit Diagnoses Not on filedocumented in this encounter Care Teams Assistant Sales Manager Relationship Specialty Start Date End Date Hung Pereira APRN, CNP [address] [place] [address] PCP - General Internal Medicine 01/14/20 06/12/22 documented as of this encounter
--- OUTSIDE RECORDS SUMMARY | 2024-10-27 11:04 | XMS_ITS | Encounter Summary ---
Author Organization [facility] [email or web address] Care Team Providers Care Industrial Maintenance Repairer Name Role Phone Hung Pereira APRN, MIKE Primary Care Provider + Encounter Details Date Type Department Care Team (Latest Contact Info) Description 09/24/2021 Travel Social History Tobacco Use Types Packs/Day [...] COVID-19? No / Unsure 09/24/2021 4:29 PM NEWS BROADCASTER documented as of this encounter Plan of Treatment Upcoming Encounters Date Type Department Care Team (Late st Contact Info) Description 09/13/2025 11:00 AM NEWS BROADCASTER Office Visit [facility] Group - Cardiology [facility] [address] [place] [phone] Vane Contreras APRN, SMASHER HAND [address] [place] [address] documented as of this encounter Visit Diagnoses Not on filedocumented in this encounter Additional Health Concerns Infection Onset Date Last Indicated Resolved Time COVID - 19 09/24/2021 09/24/2021 10/14/2021 12:1 6 AM NEWS BROADCASTER documented as of this encounter Care Teams Industrial Maintenance Repairer Relationship Specialty Start Date End Date Hung Pereira, PARKING OFFICER, SMASHER HAND [address] [place] [address] PCP - General Internal Medicine 01/14/20 06/12/22 documented as of this encounter
--- OUTSIDE RECORDS SUMMARY | 2024-10-27 11:04 | XMS_ITS | Encounter Summary ---
Author Organization [facility] [employer] Care Team Providers Care Radar Air Traffic Controller Name Role Phone Brandon Dumont MD Primary Care Provider [phone] Dain Garcia MD Unavailable Rhaul castano Encounter Details Date Type Department Care Team (Latest Contact Info) Description 08/01/2023 Travel Social History Tobacco Use Types Packs/Day [...] suspected to have Coronavirus/COVID-19? No / Unsure 08/01/2023 3:31 PM CDT documented as of this encounter Plan of Treatment Upcoming Encounters Date Type Department Care Team (Late st Contact Info) Description 09/13/2025 11:00 AM TOOL GRINDER OPERATOR Office Visit [facility] Medical Group - Cardiology [facility] [address] [place] [phone] Vane Contreras APRN, INDUCTION COORDINATION POWER ENGINEER [address] [place] [address] documented as of this encounter Visit Diagnoses Not on filedocumented in this encounter Care Teams Radar Air Traffic Controller Relationship Specialty Start Date End Date Brandon Dumont MD [address] [place] [address] PCP - General Family Medicine 06/13/22 Dain Garcia MD [address] [place] [address] [place] [address] Consulting Physician Cardiovascular Disease - Cardiology 07/05/23 documented as of this encounter
--- OUTSIDE RECORDS SUMMARY | 2024-10-27 11:04 | XMS_ITS | Encounter Summary ---
Author Organization [facility] Address [address] [place] [address] Phone Care Team Providers Care Human Services Case Manager Name Role Phone Brandon Dumont MD Primary Care Provider [phone] Reason for Visit * Reason Comments Headache Encounter Details Date Type Department Care Team (Late st Contact Info) Description 12/14/2022 6:59 PM PIG CASTER - 12/14/2022 8:06 PM PIG CASTER Emergency [facility] Emergency [address] [place] [phone] Robert Parekh MD [address] [place] [address] Sinusitis Discharge Disposition: Discharged to home or Selfcare [...] Recorded In the last 10 days, have trudi lovelace been in contact with someone who was confirmed or suspected to have Coronavirus/COVID-19? No / Unsure 12/14/2022 6:55 PM PIG CASTER documented as of this encounter Last Filed Vital Signs Vital Sign Reading Time Taken Comments Blood Pressure 118/74 12/14/2022 6:54 PM PIG CASTER Pulse 88 12/14/2022 6:54 PM PIG CASTER Temperature 35.8 ??C (96.5 ??F) 12/14/2022 6:54 PM CS T Respiratory Rate 18 12/14/2022 6:54 PM PIG CASTER Oxygen Saturation 96% 12/14/2022 6:54 PM PIG CASTER Inhaled Oxygen Concentration - - Weight 59 kg (130 lb) 12/14/2022 6:54 PM PIG CASTER Height 165.1 cm (5' 5 ) 12/14/2022 6:54 PM PIG CASTER Body Mass Index 21.63 12/14/2022 6:54 PM PIG CASTER documented in this encounter Discharge Instructions * Attachments The following attachments cannot be sent through Care Everywhere. * Sinusitis Adult (Uzbek) documented in this encounter Medications at Time [...] BY MOUTH TWICE DAILY NEEDED 06/02/20 23 carbamide peroxide (DEBROX) 6.5 % Solution Place 5 Drops in affected ear(s) 2 times daily. 15 mL 12/14/2022 06/02/20 23 cloNIDine (CATAPRES) 0.3 MG Tablet [...] severe pain. 12 Tab 07/20/2020 06/02/20 23 methylPREDNISolo ne (MEDROL DOSPACK) 4 MG Tablet Therapy Pack See product package insert for dosing schedule 21 Tablet 12/14/2022 06/02/20 23 ondansetron (ZOFRAN-ODT) 8 MG TABLET [...] 2 days. 20 Tablet 09/24/2021 06/02/20 23 pseudoephedrine (SUDAFED) 60 MG TabletIndication s:Sinusitis Take 1 Tablet by mouth every 6 hours as needed for Congestion. 30 Tablet 12/14/2022 06/02/20 23 traMADol (ULTRAM) 50 MG Tablet Take 1 Tab by mouth every 6 hours as needed for Moderate or more severe pain. 20 Tab 12/24/2019 06/02/20 23 documented as of this encounter ED Notes * Lashon Amador RN - 12/14/2022 8:05 PM CST Patient discharged. Discharge instructions and patient educational material reviewed with patient; questions and concerns addressed; patient verbalizes understanding, using teach back. Patient was given 3 prescriptions. Patient was informed no drinking alcohol, driving or operating heavy machinery while taking narcotics or muscle relaxants. Patient discharged per ambualtory mode with self as responsible libertarian. CASTER * Robert Parekh MD - 12/14/2022 7:20 PM CST Chief Complaint Patient presents with ??? Headache HPI 62 yo female presents to the ED c/o headache. She has pressure throughout the right side of her face, including sinuses and ear. This is associated with congestion, sore throat, cough. Pain was keeping her from sleeping tonight. No current facility-administered medications for this encounter. [...] more severe pain. 12 Tab 0 ??? methylPREDNISolone (MEDROL DOSPACK) 4 MG [...] History Narrative ??? Not on file BP 118/74 Pulse 88 Temp 96.5 ??F (35.8 ??C) (Tympanic) Resp 18 Ht 5' 5 (1.651 m) Wt 130 lb (59 kg) SpO2 96% BMI 21.63 kg/m?? Review of Systems Constitutional: Positive for fatigue. Negative for chills and fever. HENT: Positive for congestion, ear pain, sinus pressure, sore throat and voice change. Negative forfacial swelling. Respiratory: Positive for cough. Negative for shortness of breath. Cardiovascular: Negative for chest pain. Gastrointestinal: Negative. Musculoskeletal: Negative. Skin: Negative. All other systems reviewed and are negative. Physical Exam Vitals and nursing note reviewed. Constitutional: General: She is not in acute distress. Appearance: She is well-developed. She is not diaphoretic. HENT: Head: Normocephalic and atraumatic. Right Ear: External ear normal. Left Ear: External ear normal. Ears: Comments: Moderate cerumen in right ear Nose: Right Sinus: Maxillary sinus tenderness present. Mouth/Throat: Pharynx: Uvula midline. Posterior oropharyngeal erythema present. No pharyngeal swelling, oropharyngeal exudate or uvula swelling. Eyes: Conjunctiva/sclera: Conjunctivae normal. Pupils: Pupils are equal, [...] Labs Reviewed - No data to display Medical Decision Making She seems to have sinusitis and post nasal drip. Most likely viral or allergic. Coding Clinical Impression 1. Sinusitis The patient remained stable throughout their ED [...] return, and the need for follow up. CASTER * Lindsey pU RN - 12/14/2022 6:55 PM CST Patient presents to triage ambulatory with complaint of severe headache in her right face and rightneck area since 4 days BIT AND SHANK DEPARTMENT SUPERVISOR. States she also has nasal congestion, sneezing and an intermittent cough. Alert and oriented x4. Respirations non labored. CASTER documented in this encounter Plan of Treatment Upcoming Encounters Date Type Department Care Team (Late st Contact Info) Description 09/13/2025 11:00 AM PIG CASTER [facility] Visit [facility] - [facility] [address] [place] [address] Vane Contreras APRN, MANAGER WORKERS COMPENSATION [address] [place] [address] documented as of this encounter Visit Diagnoses Diagnosis Sinusitis- Primary Unspecified sinusitis (chronic) documented in this encounter Administered Medications Inactive Administered Medications - up to 3 most recent administrations Medication Order MAR Action Action Date Dose Rate Site cetirizine-pseudoephedrine (ZYRTEC-D) 5-120 MG per tablet 1 Tablet 1 Tablet, Oral, Once, 1 dose, On Tue12/14/22 at 2029 Given 12/14/2022 8:01 PM PIG CASTER 1 Tablet ketorolac (TORADOL) injection 30 mg 30 mg, Intramuscular, ONCE, 1 dose, On Tue12/14/22 at 2000 Given 12/14/2022 8:00 PM PIG CASTER 30 mg Left Deltoid predniSONE (DELTASONE) tablet 40 mg 40 mg, Oral, ONCE, 1 dose, On Tue12/14/22 at 1999 Given 12/14/2022 8:00 PM PIG CASTER 40 mg documented in this encounter Active and Recently Administered Medications Times are shown in PIG CASTER. Scheduled Medication Order 12/12/2022 12/13/2022 12/14/2022 cetirizine-pseudoephedrine (ZYRTEC-D) 5-120 MG per tablet 1 Tablet (COMPLETED) 1 Tablet, Oral, Once, 1 dose, On Tue12/14/22 at 2029 2000 (Given - Provid er: Lashon Amador RN) ketorolac (TORADOL) injection 30 mg (COMPLETED) 30 mg, Intramuscular, ONCE, 1 dose, On Tue12/14/22 at 1999 1999 (Given - Provid er: Lashon Amador RN) predniSONE (DELTASONE) tablet 40 mg (COMPLETED) 40 mg, Oral, ONCE, 1 dose, On Tue12/14/22 at 1999 1999 (Given - Provid er: Lashon Amador RN) documented in this encounter Care Teams Human Services Case Manager Relationship Specialty Start Date End Date Brandon Dumont MD [address] [facility] [address] [place] [address] PCP - General Family Medicine 06/13/22 documented as of this encounter
--- OUTSIDE RECORDS SUMMARY | 2024-10-27 11:04 | XMS_ITS | Encounter Summary ---
Author Organization [facility] [employer] Care Team Providers Care African History Professor Name Role Phone Brandon Dumont MD Primary Care Provider Encounter Details Date Type Department Care Team (Latest Contact Info) Description 06/03/2023 Travel Social History Tobacco Use Types Packs/Day [...] st Contact Info) Description 09/13/2025 11:00 AM SHIP ERECTOR Office Visit [facility] Group - Cardiology - [place] [address] [place] [address] Vane Contreras APRN, COMPOSITION PROFESSOR [address] [place] [address] documented as of this encounter Visit Diagnoses Not on filedocumented in this encounter Care Teams African History Professor Relationship Specialty Start Date End Date Brandon Dumont MD [address] [place] [address] PCP - General Family Medicine 06/13/22 documented as of this encounter
--- OUTSIDE RECORDS SUMMARY | 2024-10-27 11:04 | XMS_ITS | Encounter Summary ---
Author Organization [facility] Address [address] [place] [address] Phone Care Team Providers Care Fish Hatchery Inspector Name Role Phone Brandon Dumont MD Primary Care Provider [phone] Dain Garcia MD Unavailable Rauhl castano Reason for Visit * Reason Onset Date Comments Medication Management 11/04/2023 Encounter Details Date Type Department Care Team (Late st Contact Info) Description 11/04/2023 Telephone [facility] - Cardiology - [place] [address] [place] [address] Thelma Lee APRN, FINANCIAL ASSISTANCE ADVISOR [address] [facility] [place] [address] Medication Management Social History Tobacco Use Types Packs/Day Years [...] encounter Miscellaneous Notes * Telephone Encounter - Liv Martin, RN - 11/04/2023 2:24 PM CST Tre from Dr. Phelps calling, wanting to know if a patient was still on Xarelto or Metoprolol, informed according to medication list patient is not on either, metoprolol was discontinued on 06/03/23, he verbalized understanding and will let Dr. Phelps know. fyi OL LIBRARY MEDIA SPECIALIST documented in this encounter Plan of Treatment Upcoming Encounters Date Type Department Care Team (Late st Contact Info) Description 09/13/2025 11:00 AM SCHOOL LIBRARY MEDIA SPECIALIST Office Visit [facility] - Cardiology - [place] [address] [place] [address] Vane Contreras APRN, FINANCIAL ASSISTANCE ADVISOR [address] [place] [address] documented as of this encounter Visit Diagnoses Not on filedocumented in this encounter Care Teams Fish Hatchery Inspector Relationship Specialty Start Date End Date Brandon Dumont MD [address] [place] [address] [place] [address] PCP - General Family Medicine 06/13/22 Dain Garcia MD [address] [place] [address] [place] [address] Consulting Physician Cardiovascular Disease - Cardiology 07/05/23 documented as of this encounter
--- OUTSIDE RECORDS SUMMARY | 2024-10-27 11:04 | XMS_ITS | Encounter Summary ---
Author Organization [facility] [employer] Care Team Providers Care Front End Software Engineer Name Role Phone Hung Pereira APRN, CNP Primary Care Provider + Encounter Details Date Type Department Care Team (Latest Contact Info) Description 02/12/2020 Travel Social History Tobacco Use Types Packs/Day [...] have Coronavirus / COVID-19? No / Unsure 02/12/2020 10:30 AM CDT documented as of this encounter Plan of Treatment Upcoming Encounters Date Type Department Care Team (Late st Contact Info) Description 09/13/2025 11:[address] Office Visit [facility] - Cardiology - [place] [address] [place] [address] Vane Contreras APRN, CNP [address] [place] [address] documented as of this encounter Visit Diagnoses Not on filedocumented in this encounter Care Teams Front End Software Engineer Relationship Specialty Start Date End Date Hung Pereira APRN, CNP [address] [place] [address] PCP - General Internal Medicine 01/14/20 06/12/22 documented as of this encounter
--- OUTSIDE RECORDS SUMMARY | 2024-10-27 11:04 | XMS_ITS | Encounter Summary ---
Author Organization [facility] Address [address] [place] [address] Care Team Providers Care Loss Prevention Research Engineer Name Role Phone Hung Pereira APRN, SPEECH INSTRUCTOR Primary Care Provider + Encounter Details Date Type Department Care Team (Late Contact Info) Description 06/13/2021 1:15 PM CDT Immunization [facility] Mobile Immunization [address] [place] [address] Need for vaccination (Primary Dx) Social History Tobacco Use Types Packs/Day Years Used Date Smoking Tobacco: Never Assessed AUDIT-C Answer Date Recorded Q1: How often [...] Encounters Date Type Department Care Team (Late Contact Info) Description 09/13/2025 11:00 AM READING INTERVENTIONIST Office Visit [facility] - Cardiology - [place] [address] [place] [address] Vane Contreras APRN, SPEECH INSTRUCTOR [address] [place] [address] documented as of this encounter Visit Diagnoses Diagnosis Need for vaccination- Primary Need for prophylactic vaccination and inoculation against unspecified single disease documented in this encounter Care Teams Loss Prevention Research Engineer Relationship Specialty Start Date End Date Hung Pereira APRN, MIKE [address] [place] [address] PCP - General Internal Medicine 01/14/20 06/12/22 documented as of this encounter
--- OUTSIDE RECORDS SUMMARY | 2024-10-27 11:04 | XMS_ITS | Encounter Summary ---
Author Organization [facility] Address [address] [place] [address] Phone Care Team Providers Care Frame Pulley Mortising Machine Operator Name Role Phone Christopher Dumont MD Primary Care Provider [phone] Dain Garcia MD Unavailable [facility] Reason for Visit * Reason Comments New Patient Encounter Details Date Type Department Care Team (Latest Contact Info) Description 08/01/2023 3:20 PM CDT Office Visit [facility] [address] [place] [address] Dain Garcia MD Essential hypertension (Primary Dx); Tobacco dependence; Nonrheumatic mitral valve regurgitation Discharge Disposition: Discharged to home or Selfcare [...] Sign Reading Time Taken Comments Blood Pressure 110/82 08/01/2023 3:37 PM CDT Pulse 81 08/01/2023 3:37 PM CDT Temperature 36.6 ??C (97.9 ??F) 08/01/2023 3:37 PM CD T Respiratory Rate 18 08/01/2023 3:37 PM CDT Oxygen Saturation 96% 08/01/2023 3:37 PM CDT Inhaled Oxygen Concentration - - Weight 60.7 kg (133 lb 12.8 oz) 08/01/2023 3:37 PM CDT Height 165.1 cm (5' 5 ) 08/01/2023 3:37 PM CDT Body Mass Index 22.27 08/01/2023 3:37 PM CDT documented in this encounter Progress Notes * Dain Garcia MD - 08/01/2023 3:20 PM CDT HISTORY AND PHYSICAL Assessment & Plan: 1. Essential hypertension Blood pressure seems to be well controlled current medical management. 2. Tobacco dependence Stopped smoking however is vaping a bit. Cessation discussed and stressed 3. Nonrheumatic mitral valve regurgitation She has moderate mitral regurgitation with some flow acceleration across the mitral valve as well. Will need close follow-up in 6 months to 1 year. Subjective: HPI: Joselyn West is a 62 y.o. female who I was asked to see by CHRISTOPHER DUMONT MD for mitral regurgitation and possible atrial fibrillation. Very pleasant 62-year-old lady who is an [...] active and functional ad ebony without any limitations 08.01.23 overall doing well. Remains asymptomatic. Active and functional ad ebony. She did have a monitor which did not show any evidence of atrial fibrillation. She is asymptomatic and has no palpitations whatsoever. Patient Active Problem List Diagnosis Date Noted ??? Tobacco dependence 06/02/2023 ??? Hyperlipidemia 06/02/2023 ??? GERD (gastroesophageal reflux disease) 06/02/2023 ??? Anxiety 06/02/2023 ??? Essential hypertension 08/17/2021 ??? Tobacco use 02/28/2017 No Known Allergies Cannot display prior to admission medications because the patient has not been admitted in this contact. Current Outpatient Medications on File Prior to Visit Medication Sig Dispense Refill ??? albuterol (ProAir [...] oral route . ??? ergocalciferol (VITAMIN D) 21042 UNIT Capsule Take 50,000 Units by mouth once a week. wED ??? famotidine (PEPCID) 40 MG Tablet Take 40 mg by mouth nightly. ??? fluticasone (FLONASE) 50 MCG/ACT Suspension 2 Sprays by Nasal route. ??? gabapentin (NEURONTIN) 300 MG Capsule 300 mg daily (with breakfast). PRN ??? hydrALAZINE 25 MG Tablet Take 25 mg by mouth daily. Indications: High Blood Pressure Disorder ??? ipratropium-albuterol (DUO-NEB) 0.5-2.5 (3) MG/3ML Solution 3 mL by Nebulization route every 6 hours as needed for Shortness of Breath or Wheezing for up to 90 days. 168 mL 0 ??? losartan (COZAAR) 25 MG Tablet Take 25 mg by mouth daily. ??? metoprolol tartrate (LOPRESSOR) 25 MG Tablet Take 1 Tablet by mouth 2 times daily for 90 days. 180 Tablet 0 ??? nicotine (NICODERM CQ) 14 MG/24HR PATCH 24 HR 1 Patch by Transdermal route every 24 hours for 29 days. Day 31 to Day 60 30 Patch 0 ??? [START ON 08/03/2023] nicotine (NICODERM CQ) 7 MG/24HR PATCH 24 HR 1 Patch by Transdermal route every 24 hours for 30 days. Day 61 to Day 90 30 Patch 0 ??? ondansetron (ZOFRAN-ODT) 8 MG TABLET DISPERSIBLE Take 8 mg by mouth every 8 hours as needed (nausea and vomiting). ??? oxybutynin (DITROPAN) 5 MG Tablet 5 mg 2 times daily. Indications: Overactive Bladder ??? venlafaxine (EFFEXOR) 75 MG Tablet Take 75 mg by mouth 3 times daily. No current facility-administered medications on file prior to visit. Past Medical History Positives Diagnosis Date ??? Anxiety ??? GERD (gastroesophageal reflux disease) ??? Hyperlipidemia ??? Hypertension Past Surgical History: Procedure Laterality Date ??? BACK SURGERY ??? GALLBLADDER SURGERY Family History Problem Relation Age of Onset ??? No Known Problems Mother ??? No Known Problems Father Social History Socioeconomic History ??? Marital status: [...] Social History Narrative ??? Not on file Review of Systems: Review of Systems All other systems reviewed and are negative. Pertinent items are noted in HPI. All other systems were reviewed and were negative. Objective: VITALS: BP 110/82 (BP Location: Left Arm, BP Position: Sitting, BP Cuff Size: Regular) Pulse 81 Temp 97.9 ??F (36.6 ??C) (Temporal) Resp 18 Ht 5' 5 (1.651 m) Wt 133 lb 12.8 oz (60.7 kg) SpO2 96% BMI 22.27 kg/m?? Physical Exam Constitutional: Appearance: Normal appearance. HENT: Head: Normocephalic and atraumatic. Nose: Nose normal. Mouth/Throat: Mouth: Mucous membranes are moist. Eyes: Pupils: Pupils are equal, round, and reactive to light. Cardiovascular: Rate and Rhythm: Normal rate and regular rhythm. Pulmonary: Effort: Pulmonary effort is normal. Breath sounds: Normal breath sounds. Abdominal: General: Bowel sounds are normal. Palpations: Abdomen is soft. Musculoskeletal: General: Normal range of motion. Cervical back: Normal range of motion. Skin: General: Skin is warm. Neurological: General: No focal deficit present. Mental Status: She is alert and oriented to person, place, and time. Psychiatric: Mood and Affect: Mood normal. Data Review: No results for input(s): ALBUMIN, TBIL, BILIRUBIN, ALKALINEPHO, SGOTAST, SGPTALT, TOTALPROTEIN in the last 72 hours. Lab Results Component Value Date WBC 17.57 (H) 06/03/2023 HEMOGLOBIN 12.6 06/03/2023 HEMATOCRIT 36.5 06/03/2023 PLATELETCNT 213 06/03/2023 SGPTALT 11 06/02/2023 SGOTAST 10 06/02/2023 SODIUM 144 06/03/2023 POTASSIUM 4.1 06/03/2023 CHLORIDE 109 06/03/2023 CREATININE 0.95 06/03/2023 BUN 18 06/03/2023 CO2VEN 25 06/03/2023 GLUCOSE 92 06/03/2023 I personally reviewed the above labs and radiological studies (images if available and reports), and agree with the radiologist unless stated above. This note was dictated using [employer] fluency dictation system and there may be errors in preschool teacher's assistant. Despite proof reading the note, there may be mistakes and I apologize for those. By: Dain Strong MD, 08/01/2023, 4:13 PM CDT Primary Care Physician: CHRISTOPHER DUMONT MD documented in this encounter Plan of Treatment Upcoming Encounters Date Type Department Care Team (Late st Contact Info) Description 09/13/2025 11:00 AM CLASSIFYING MACHINE OPERATOR Office Visit [facility] - Cardiology - [place] [address] [facility] [place] [address] Vane Contreras APRN, HOME CARE MUSIC THERAPIST [address] [place] [place] [address] documented as of this encounter Visit Diagnoses Diagnosis Essential hypertension- Primary Unspecified essential hypertension Tobacco dependence Tobacco use disorder Nonrheumatic mitral valve regurgitation documented in this encounter Care Teams Frame Pulley Mortising Machine Operator Relationship Specialty Start Date End Date Christopher Dumont MD [address] [place] [address] PCP - General Family Medicine 06/13/22 Dain Garcia MD [address] [address] Consulting Physician Cardiovascular Disease - Cardiology 07/05/23 documented as of this encounter
--- OUTSIDE RECORDS SUMMARY | 2024-10-27 11:05 | XMS_ITS | Encounter Summary ---
Author Organization [facility] Address [address] [place] [address] Phone Care Team Providers Care Slip Injector And Applicator Name Role Phone Hung Pereira APRN, MIKE Primary Care Provider + Encounter Details Date Type Department Care Team (Late st Contact Info) Description 02/08/2020 9:30 AM CDT Physical Therapy [facility] PT/OT/Speech [address] [place] [id number] Hung Pereira, VIRAL, GRAIN BROKER [address] [place] [address] [address] [place] [address] James Bee, PT PA Discharge Disposition: Discharged to home or Selfcare [...] have Coronavirus / COVID-19? No / Unsure 02/08/2020 9:30 AM CDT documented as of this encounter Miscellaneous Notes * Plan of Care - James Bee, PT - 02/08/2020 9:30 AM CDT Treatment Note - Electronically signed by: JAMES BEE, PT February 08, 2020 SUBJECTIVE: Pain is high today, 7/10, in shoulders, shoulder blades, upper back. Low back is doing ok today. The postural taping did help some and reminded her to stand up straight. She still has it on since she was not sure when to take it off. She does not feel the lower back taping is helping, though. 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 Can take breaks since working from home due to COVID-19. The soft tissue work helps at the time, but not halfway. She does not feel she needs it to help her powersaw supervisor so has not been getting it here. Sitting on her hard car seat to drive his painful. L neck rotation when driving hurts. OBJECTIVE General: Patient was able to move at a normal speed for gait and transfers, and without difficulty. TREATMENT: Other treatment notes: Refer to PT OP Rehab Therapy Treatment flowsheet for details/minutes. Therapist provided Education and Skilled therapy by instructed pt in exercises to ensure proper form. She performed some 6 pound box lifts with a minor cue for form, which was a wider base of support. Once she needed a cue for keeping the weight closer to her body. Goal met for the lifting technique. ASSESSMENT: Other Details: Patient demonstrates limited progress due to pain still being 7/10, but it is lower than that sometimes when she comes in. Reports turning head to the R is feeling better but L rotation still hurts. Unable to lie on a foam roll unless it was the half one with the flat side up due to pain. Patient would benefit from continued skilled therapy due to the following functional limitations: Pt is not able to work more than 30 min at home before having to rest, pain lying on L side, pain turning neck when driving, not sleeping well at night, in bed most of the time at home All charges entered today are appropriate and separate from each other. PLAN [facility] goals: Goals to be achieved in 12 visits: Patient will demonstrate the followin. 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 IMPROVED (varies) 4/3//20 kb 2. Understanding of and ability to demonstrate safe body mechanics with lifting. MET 02/08/20 kb 3. Increase bilateral LE strength to 4/5 (and no pain when testing) to ascend/descend stairs to getupstairs to the bedroom/bathroom with less difficulty. 4. Improve lumbar spine range of motion and mobility to just mild limitations and to be able to access laundry machines with greater ease. 5. Improve score on the Oswestry Low Back Disability Questionnaire to 30% impairment or less to demonstrate overall improved function. 6. Instruction and independence in therapeutic exercise [...] st Contact Info) Description 09/13/2025 11:00 AM BODY ARTIST Office Visit [facility] - Cardiology [facility] [address] [place] [address] Vane Contreras APRN, MIKE [address] [place] [address] documented as of this encounter Visit Diagnoses Not on filedocumented in this encounter Care Teams Slip Injector And Applicator Relationship Specialty Start Date End Date Hung Pereira APRN, MIKE [address] [place] [address] PCP - General Internal Medicine 01/14/20 06/12/22 documented as of this encounter
--- OUTSIDE RECORDS SUMMARY | 2024-10-27 11:05 | XMS_ITS | Encounter Summary ---
Author Organization [facility] [employer] Care Team Providers Care [employer] Special Education Teacher Name Role Phone Hung Pereira APRN, CNP Primary Care Provider + Encounter Details Date Type Department Care Team (Latest Contact Info) Description 02/08/2020 Travel Social History Tobacco Use Types Packs/Day [...] st Contact Info) Description 09/13/2025 11:00 AM IRRIGATOR OVERHEAD Office Visit [facility] - Cardiology - [place] [address] [place] [address] Vane Contreras APRN, CNP [address] [place] [address] documented as of this encounter Visit Diagnoses Not on filedocumented in this encounter Care Teams [employer] Special Education Teacher Relationship Specialty Start Date End Date Hung Pereira APRN, CNP [address] [place] [address] PCP - General Internal Medicine 01/14/20 06/12/22 documented as of this encounter
--- OUTSIDE RECORDS SUMMARY | 2024-10-27 11:05 | XMS_ITS | Encounter Summary ---
Author Organization [facility] [employer] Care Team Providers Care Tank Filler Name Role Phone Hung Pereira APRN, CNP Primary Care Provider + Encounter Details Date Type Department Care Team (Latest Contact Info) Description 01/22/2020 Travel Social History Tobacco Use Types Packs/Day [...] have Coronavirus / COVID-19? No / Unsure 01/22/2020 8:34 AM CDT documented as of this encounter Plan of Treatment Upcoming Encounters Date Type Department Care Team (Late st Contact Info) Description 09/13/2025 11:00 AM CHEMICAL MAKER Office Visit [facility] - Cardiology - [place] [address] [place] [address] Vane Contreras APRN, CNP [address] [place] [address] documented as of this encounter Visit Diagnoses Not on filedocumented in this encounter Care Teams Tank Filler Relationship Specialty Start Date End Date Hung Pereira APRN, CNP [address] [place] [address] PCP - General Internal Medicine 01/14/20 06/12/22 documented as of this encounter
--- OUTSIDE RECORDS SUMMARY | 2024-10-27 11:05 | XMS_ITS | Encounter Summary ---
Author Organization [facility] Address [address] [place] [address] Phone Care Team Providers Care Diamond Finishing Supervisor Name Role Phone Hung Pereira APRN, MIKE Primary Care Provider + Encounter Details Date Type Department Care Team (Late st Contact Info) Description 02/05/2020 10:30 AM CDT Physical Therapy [facility] POB PT/OT/Speech [address] [place] [address] Hung Pereira, VIRAL, REPAIRER TYPEWRITER [address] [place] [address] [address] [place] [address] Abram Santos PTA [place] Discharge Disposition: Discharged to home or Selfcare [...] have Coronavirus / COVID-19? No / Unsure 02/05/2020 10:34 AM CDT documented as of this encounter Miscellaneous Notes * Plan of Care - Abram Santos PTA - 02/05/2020 10:30 AM CDT Treatment Note - Electronically signed by: ABRAM Wilburn AFTAB, BRINE MAKER February 05, 2020 SUBJECTIVE: There have not been any medication changesPt reports overall her pain is doing better. Pt states she overdid it yesterday trying to rake her yard and she had to stop due to pain. Pt reports she has been doing her exercises at home. Objective TREATMENT: Other treatment notes: Refer to PT OP Rehab Therapy Treatment flowsheet for details/minutes. Low back taping: Patient received taping to low back with 2 stabilizing strips running from bilateral SI joints to the lower ribcage and 1 decompression strip across the spine at the most painful area of the low back. Tape was applied with patient flexed forward on their elbows utilizing mat in standing. Pt was taped into scapular retraction using rock tape Therapist provided Education and Skilled therapy by instructed pt in exercises . ASSESSMENT: Other Details: Patient demonstrates progress as evidenced by Pt is able to walk up her steps with no pain. Patient would benefit from continued skilled therapy due to the following functional limitations: Pt is not able to work more than 30 min at home before having to rest Skilled interventions are necessary as demonstrated by the need for: - Direction of therapeutic exercise to address strength, flexibility, and ROM impairments All charges entered today are appropriate and separate from each other. PLAN intermediate teacher goals: Goals to be achieved in 12 visits: Patient will demonstrate the followin. 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 IMPROVED (varies) 01/29/20 kb 2. Understanding of and ability to demonstrate safe body mechanics with lifting. 3. Increase bilateral LE strength to 4/5 [...] in low back pain with using stairs. IMPROVED (less pain now) 01/29/20 kb 8. Patient will stand upright without bending over when standing in the clinic due to low back pain. MET 01/29/20 kb . Recommendations: This patient will benefit from the continued skilled rehabilitation to address the above listed limitations and goals. documented in this encounter Plan of Treatment Upcoming Encounters Date Type Department Care Team (Late st Contact Info) Description 09/13/2025 11:00 AM PREPARED FOODS SERVICE TEAM MEMBER Office Visit [facility] - Cardiology - [place] [address] [place] [address] Vane Contreras APRN, REPAIRER TYPEWRITER [address] [place] [address] documented as of this encounter Visit Diagnoses Not on filedocumented in this encounter Care Teams Diamond Finishing Supervisor Relationship Specialty Start Date End Date Hung Pereira APRN, REPAIRER TYPEWRITER [address] [place] [address] PCP - General Internal Medicine 01/14/20 06/12/22 documented as of this encounter
--- OUTSIDE RECORDS SUMMARY | 2024-10-27 11:05 | XMS_ITS | Encounter Summary ---
Author Organization [facility] Address [address] [place] [address] Phone Care Team Providers Care Clerk Secretary Name Role Phone Hung Pereira APRN, MIKE Primary Care Provider + Encounter Details Date Type Department Care Team (Late st Contact Info) Description 02/12/2020 10:30 AM CDT Physical Therapy [facility] POB PT/OT/Speech [address] [place] [address] Hung Pereira, VIRAL, CLAM GRADER [address] [place] [address] [address] [place] [address] Abram Ugalde PTA [place] Discharge Disposition: Discharged to home or Selfcare [...] Notes * Plan of Care - Abram Ugalde PTA - 02/12/2020 10:30 AM CDT Treatment Note - Electronically signed by: ABRAM UGALDE PTA February 12, 2020 SUBJECTIVE: Pt reports she is getting better. Pt states she has not had any pain in her shoulder blade since Tuesday. Pt states she still has pain in her neck when tries to lie on her L side Objective TREATMENT: Other treatment notes: Refer to PT OP Rehab Therapy Treatment flowsheet for details/minutes. . Pt was taped into scapular retraction using rock tape Therapist provided Education and Skilled therapy by instructed pt in exercises . ASSESSMENT: Other Details: Patient demonstrates progress as evidenced by Not having pain in her shoulder blade Patient would benefit from continued skilled therapy due to the following functional limitations: Increased neck pain when turning her head and increased back pain if she has to cook a large meal Skilled interventions are necessary as demonstrated by the need for: - Direction of therapeutic exercise to address strength, flexibility, and ROM impairments All charges entered today are appropriate and separate from each other. PLAN rn long term care goals: Goals to be achieved in 12 visits: Patient will demonstrate the followin. 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 IMPROVED (varies) 02/08/20 kb 2. Understanding of and ability to [...] st Contact Info) Description 09/13/2025 11:00 AM KENO TERMINAL OPERATOR Office Visit [facility] - Cardiology - [place] [address] [place] [address] Vane Contreras APRN, CLAM GRADER [address] [place] [address] documented as of this encounter Visit Diagnoses Not on filedocumented in this encounter Care Teams Clerk Secretary Relationship Specialty Start Date End Date Hung Pereira APRN, CLAM GRADER [address] [place] [address] PCP - General Internal Medicine 01/14/20 06/12/22 documented as of this encounter
--- OUTSIDE RECORDS SUMMARY | 2024-10-27 11:05 | XMS_ITS | Encounter Summary ---
Author Organization [facility] Address [address] [place] [address] Phone Care Team Providers Care Meat Cooler Name Role Phone Hung Pereira APRN, MIKE Primary Care Provider + Encounter Details Date Type Department Care Team (Late st Contact Info) Description 01/24/2020 12:45 PM CDT Physical Therapy [facility] POB PT/OT/Speech [address] [place] [phone] Hung Pereira, VIRAL, WIND PROJECTS SUPERVISOR [address] [place] [address] [address] [place] [address] James Bee, PT [place] Discharge Disposition: Discharged to home or Selfcare [...] have Coronavirus / COVID-19? No / Unsure 01/24/2020 12:45 PM CDT documented as of this encounter Miscellaneous Notes * Plan of Care - James Bee, PT - 01/24/2020 12:45 PM CDT Treatment Note - Electronically signed by: JAMES BEE, PT January 24, 2020 SUBJECTIVE: She is having a lot of pain in the L side of her neck, L shoulder blade, and across the low back. She saw Estefany OSEGUERA earlier today. She has two weeks more off work. 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 Patient is going back to see the COOK HELPER VEGETABLE in two weeks and hopes to return to work then. She has noticed that turning head to the L is better. Turning to the R is still painful. Patient reports that lying on L side is painful so she moved her television so that it is on her R side. OBJECTIVE General: Slow in sit to stand as well as ambulation. TREATMENT: Other treatment notes: Refer to PT OP Rehab Therapy Treatment flowsheet for details/minutes. Home program in [place] Access Code: [email or web address] Soft tissue work to back on prone. Used cocoa better. Focused near L scapula, which was tender, butpatient said it felt better when leaving. Therapist provided Education and Skilled therapy by asking her to be a little more active at home. ASSESSMENT: Other Details: Patient is making limited progress due to slowness in movements and high pain levelsreported still. She went through the rest of the home program that was issued by the PT Baster Hand at her second visit since we still had not gone through all of it yet. She said she actually felt better when leaving after soft tissue work to tspine and lspine. Consider doing more up into the neck as well next visit during soft tissue work. 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 PLAN terminal manager goals: Goals to be achieved in 12 visits: Patient will demonstrate the followin. 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 NOT MET 01/24/20 kb 2. Understanding of and ability to [...] in low back pain with using stairs. 8. Patient will stand upright without bending over when standing in the clinic due to low back pain. . documented in this encounter Plan of Treatment Upcoming Encounters Date Type Department Care Team (Late st Contact Info) Description 09/13/2025 11:00 AM NUTRITIONISTS Office Visit [facility] - Cardiology - [place] [address] [place] [address] Vane Contreras APRN, MIKE [address] [place] [address] documented as of this encounter Visit Diagnoses Not on filedocumented in this encounter Care Teams Meat Cooler Relationship Specialty Start Date End Date Hung Pereira APRN, WIND PROJECTS SUPERVISOR [address] [place] [address] PCP - General Internal Medicine 01/14/20 06/12/22 documented as of this encounter
--- OUTSIDE RECORDS SUMMARY | 2024-10-27 11:05 | XMS_ITS | Encounter Summary ---
Author Organization [facility] [employer] Care Team Providers Care Lieutenant/Deputy Name Role Phone Hung Pereira APRN, CNP Primary Care Provider + Encounter Details Date Type Department Care Team (Latest Contact Info) Description 01/17/2020 Travel Social History Tobacco Use Types Packs/Day [...] st Contact Info) Description 09/13/2025 11:00 AM METAL BONDER Office Visit [facility] - Cardiology [facility] [address] [place] [phone] Vane Contreras APRN, CNP [address] [place] [phone] documented as of this encounter Visit Diagnoses Not on filedocumented in this encounter Care Teams Lieutenant/Deputy Relationship Specialty Start Date End Date Hung Pereira APRN, CNP [address] [place] [address] PCP - General Internal Medicine 01/14/20 06/12/22 documented as of this encounter
--- OUTSIDE RECORDS SUMMARY | 2024-10-27 11:05 | XMS_ITS | Encounter Summary ---
Author Organization [facility] [employer] Care Team Providers Care Health And Safety Trainer Name Role Phone Hung Pereira APRN, CNP Primary Care Provider + Encounter Details Date Type Department Care Team (Latest Contact Info) Description 01/31/2020 Travel Social History Tobacco Use Types Packs/Day [...] have Coronavirus / COVID-19? No / Unsure 01/31/2020 9:21 AM CDT documented as of this encounter Plan of Treatment Upcoming Encounters Date Type Department Care Team (Late st Contact Info) Description 09/13/2025 11:00 AM LIQUOR MAKER Office Visit [facility] - Cardiology [facility] [place] [address] [place] [address] Vane Contreras APRN, CNP [address] [place] [address] documented as of this encounter Visit Diagnoses Not on filedocumented in this encounter Care Teams Health And Safety Trainer Relationship Specialty Start Date End Date Hung Pereira APRN, CNP [address] [place] [address] PCP - General Internal Medicine 01/14/20 06/12/22 documented as of this encounter
--- OUTSIDE RECORDS SUMMARY | 2024-10-27 11:05 | XMS_ITS | Encounter Summary ---
Author Organization [facility] [employer] Care Team Providers Care Crown Ironer Name Role Phone Hung Pereira APRN, CNP Primary Care Provider + Encounter Details Date Type Department Care Team (Latest Contact Info) Description 02/05/2020 Travel Social History Tobacco Use Types Packs/Day [...] st Contact Info) Description 09/13/2025 11:00 AM DELPHI DEVELOPER Office Visit [facility] - Cardiology - [place] [address] [place] [address] Vane Contreras APRN, CNP [address] [place] [address] documented as of this encounter Visit Diagnoses Not on filedocumented in this encounter Care Teams Crown Ironer Relationship Specialty Start Date End Date Hung Pereira APRN, CNP [address] [place] [address] PCP - General Internal Medicine 01/14/20 06/12/22 documented as of this encounter
--- OUTSIDE RECORDS SUMMARY | 2024-10-27 11:05 | XMS_ITS | Encounter Summary ---
Author Organization [facility] Address [address] [place] [address] Phone Care Team Providers Care Music Department Chair Name Role Phone Hung Pereira APRN, MIKE Primary Care Provider + Encounter Details Date Type Department Care Team (Late st Contact Info) Description 01/31/2020 9:15 AM CDT Physical Therapy [facility] POB PT/OT/Speech [address] [place] [address] Hung Pereira, VIRAL, HOOK UP DRIVER [address] [place] [address] [address] [place] [address] Abram Ugalde PTA [place] Discharge Disposition: Discharged to home or Selfcare [...] of Care - Abram Ugalde PTA - 01/31/2020 9:15 AM CDT Treatment Note - Electronically signed by: ABRAM UGALDE, BENCH INSPECTOR January 31, 2020 SUBJECTIVE: There have not been any medication changesPt reports she is feeling good today. She states she has improved ROM to the R and her ROM to the L is not as painful. Pt states her low back pain is not constant anymore and only hurts her when she moves around a lot. Pt reports she has been doing her exercises at home. Pt states goes back to the MD next . Objective TREATMENT: Other treatment notes: Refer to [...] pt in exercises . ASSESSMENT: Other Details: Pt modified her range of motion with scapualr retraction and did not have increased pain. Pt was appeared challenged PLAN terminal operator goals: Goals to be achieved in 12 [...] clinic due to low back pain. MET 3/24/20 kb . Recommendations: This patient will benefit from the continued skilled rehabilitation to address the above listed limitations and goals. documented in this encounter Plan of Treatment Upcoming Encounters Date Type Department Care Team (Late st Contact Info) Description 09/13/2025 11:00 AM ASSET PROTECTION PROFESSIONAL Office Visit [facility] - Cardiology - [place] [address] [place] [address] Vane Contreras APRN, HOOK UP DRIVER [address] [place] [address] documented as of this encounter Visit Diagnoses Not on filedocumented in this encounter Care Teams Music Department Chair Relationship Specialty Start Date End Date Hung Pereira APRN, HOOK UP DRIVER [address] [place] [address] PCP - General Internal Medicine 01/14/20 06/12/22 documented as of this encounter
--- OUTSIDE RECORDS SUMMARY | 2024-10-27 11:05 | XMS_ITS | Encounter Summary ---
Author Organization [facility] Address [address] [place] [address] Phone Care Team Providers Care Library Media Assistant Name Role Phone Hung Pereira APRN, MIKE Primary Care Provider + Encounter Details Date Type Department Care Team (Late st Contact Info) Description 01/22/2020 8:30 AM CDT Physical Therapy [facility] POB PT/OT/Speech [address] [place] [phone] Hung Pereira, VIRAL, MILLINERY DESIGNER [address] [place] [address] [address] [place] [address] James Bee, PT [place] Discharge Disposition: Discharged to home or Selfcare [...] of Care - James Bee, PT - 01/22/2020 8:30 AM CDT Treatment Note - Electronically signed by: JAMES BEE, PT January 22, 2020 SUBJECTIVE: Patient said she was in bed Tuesday all day due to pain. Took two Flexyrl last night due to pain. Pain is at low back, between shoulder blades, and both shoulders. She did the neck exercises that the WAD BLANKING PRESS ADJUSTER gave her last visit plus the double knee to chest stretch from the evaluation at home. She forgot about the child's pose stretch for home from the evaluation. 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 Sees TRAINING REPRESENTATIVE in two days about going back to work. She is concerned with the driving and quick movements when she returns to work, but she won't be doing that anyway now since the schools are closed. OBJECTIVE General: Patient forgot to fill out the backside of the patient-reported outcomes measure, the Oswestry Low Back Pain Disability Questionnaire on paper the first day. She finished it today. She scored 27/50, or 54% limited. This will be scanned to her chart. TREATMENT: Other treatment notes: Refer to PT OP Rehab Therapy Treatment flowsheet for details/minutes. Home program in [facility] Access Code: [email or web address] Therapist provided Education and Skilled therapy by Reviewed cervical portion of HEP with patient plus the lumbar portion, which she has never done. ASSESSMENT: Other Details: Patient is not yet demonstrating progress as learning some lumbar portion of home program. WAD BLANKING PRESS ADJUSTER issued a home program last visit but patient was late so he did not have time to review off of it with her. She still has not done all the exercises on it. Plan to transition to more manual therapy when the home program is learned more proficiently, as there are some on there that she has never done.Elvia pain went from 4 to a 7 from start to finish in the session today but she said it's proabably good for me to move a little. Encouraging patient to keep active at home. Patient would benefit from continued skilled therapy due to the following functional limitations: pain lying on L side, pain turning neck when driving, not sleeping well at night, not working as a social sciences instructor, in bed most of the time. Skilled interventions are necessary as demonstrated by the need for: - Direction of therapeutic exercise to address strength, flexibility, and ROM impairments All charges entered today are appropriate and separate from each other. PLAN alf goals: Goals to be achieved in 12 visits: Patient will demonstrate the followin. 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 2. Understanding of and ability to demonstrate [...] relative impairments in order to optimize rehabilitation. 7. Patient will report no increase in low back pain with using stairs. 8. Patient will stand upright without bending over when standing in the clinic due to low back pain. . documented in this encounter Plan of Treatment Upcoming Encounters Date Type Department Care Team (Late st Contact Info) Description 09/13/2025 11:00 AM SUPPLY AIDE Office [facility] - Cardiology [facility] [address] [place] [address] Vane Contreras APRN, CNP [address] [place] [address] documented as of this encounter Visit Diagnoses Not on filedocumented in this encounter Care Teams Library Media Assistant Relationship Specialty Start Date End Date Hung Pereira APRN, CNP [address] [place] [address] PCP - General Internal Medicine 01/14/20 06/12/22 documented as of this encounter
--- OUTSIDE RECORDS SUMMARY | 2024-10-27 11:05 | XMS_ITS | Encounter Summary ---
Author Organization [facility] Address [address] [place] [address] Phone Care Team Providers Care Rent And Housing Investigator Name Role Phone Hung Pereira APRN, MIKE Primary Care Provider + Encounter Details Date Type Department Care Team (Late st Contact Info) Description 01/18/2020 9:15 AM CDT Physical Therapy [facility] POB PT/OT/Speech [address] [place] [address] Hung Pereira, VIRAL, ORDER BUILDER [address] [place] [address] [address] [place] [address] Abram Ugalde PTA [place] Discharge Disposition: Discharged to home or Selfcare [...] of Care - Abram Ugalde PTA - 01/18/2020 9:15 AM CDT Treatment Note - Electronically signed by: ABRAM UGALDE PTA January 18, 2020 SUBJECTIVE: Pt reports she feels stiff this morning. Pt reports she is having some pain today but she took painmedication and that helped. Pt states her neck and back are equally in pain. She is concerned aboutthe lack of ROM of her neck when she is driving Objective TREATMENT: Other treatment notes: Pt was 15 min late this date as she thought her appointment was 15 min later. Confirmed date and time of next appointment. Refer to PT OP Rehab Therapy Treatment flowsheet for details/minutes. ccess Code: [email or web address] URL: [email or web address] Date: 01/18/2020 Prepared by: Abram Ugalde Exercises Supine Bridge - 15 reps - 2 sets - 1x daily - 7x weekly Clamshell - 15 reps - 2 sets - 1x daily - 7x weekly Supine Posterior Pelvic Tilt - 15 reps - 2 sets - 3 second hold - 1x daily - 7x weekly Supine Hip Adduction Isometric with Ball - 15 reps - 2 sets - 3 seconds hold - 1x daily - 7x weekly Bent Knee Fallouts - 15 reps - 2 sets - 1x daily - 7x weekly Supine Hamstring Stretch with Doorway - 3 reps - 60 seconds hold - 1x daily - 7x weekly Supine Chin Tuck - 15 reps - 2 sets - 2 sec hold - 1x daily - 7x weekly Neck Sidebending - 3 reps - 1 sets - 30 seconds hold - 1x daily - 7x weekly Gentle Levator Scapulae Stretch - 3 reps - 1 sets - 30 seconds hold - 1x daily - 7x weekly Seated Scapular Retraction - 15 reps - 2 sets - 3 seconds hold - 1x daily - 7x weekly Therapist provided Education and Skilled therapy by Reviewed cervical portion of HEP. ASSESSMENT: Other Details: Due to pt arriving 15 min after her scheduled appointment time, only the cervical portion of her HEP was performed. Plan to perform the rest of HEP next visit. Patient is not yet demonstrating progress as evidenced by first session of therapy. Patient would benefit from continued skilled therapy due to the following functional limitations: increased pain with driving.. Skilled interventions are necessary as demonstrated by the need for: - Direction of therapeutic exercise to address strength, flexibility, and ROM impairments All charges entered today are appropriate and separate from each other. PLAN buttermaker goals: Goals to be achieved in 12 [...] st Contact Info) Description 09/13/2025 11:00 AM SHARED SERVICES AND OUTSOURCING MANAGER Office Visit [facility] - Cardiology - [place] [address] [place] [address] Vane Contreras APRN, MIKE [address] [place] [address] documented as of this encounter Visit Diagnoses Not on filedocumented in this encounter Care Teams Rent And Housing Investigator Relationship Specialty Start Date End Date Hung Pereira APRN, ORDER BUILDER [address] [place] [address] PCP - General Internal Medicine 01/14/20 06/12/22 documented as of this encounter
--- OUTSIDE RECORDS SUMMARY | 2024-10-27 11:05 | XMS_ITS | Encounter Summary ---
Author Organization [facility] [employer] Care Team Providers Care Hotbed Lever Operator Name Role Phone Hung Pereira APRN, CNP Primary Care Provider + Encounter Details Date Type Department Care Team (Latest Contact Info) Description 01/29/2020 Travel Social History Tobacco Use Types Packs/Day [...] have Coronavirus / COVID-19? No / Unsure 01/29/2020 9:33 AM CDT documented as of this encounter Plan of Treatment Upcoming Encounters Date Type Department Care Team (Late st Contact Info) Description 09/13/2025 11:00 AM TIGER MACHINE OPERATOR Office Visit [facility] - Cardiology - [place] [address] [place] [address] Vane Contreras APRN, CNP [address] [place] [address] documented as of this encounter Visit Diagnoses Not on filedocumented in this encounter Care Teams Hotbed Lever Operator Relationship Specialty Start Date End Date Hung Pereira APRN, CNP [address] [place] [address] PCP - General Internal Medicine 01/14/20 06/12/22 documented as of this encounter
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
--- OUTSIDE RECORDS SUMMARY | 2024-10-27 11:05 | XMS_ITS | Encounter Summary ---
Author Organization [facility] Address [address] [place] [address] Phone Care Team Providers Care Trademark Affixer Name Role Phone Hung Pereira APRN, MIKE Primary Care Provider + Encounter Details Date Type Department Care Team (Late st Contact Info) Description 01/29/2020 9:30 AM CDT Physical Therapy [facility] PT/OT/Speech [address] [place] [id number] Hung Pereira, VIRAL, ELECTRON BEAM PHOTO MASK MAKER [address] [place] [address] [address] [place] [address] James Bee, PT PA Discharge Disposition: Discharged [...] of Care - James Bee, PT - 01/29/2020 9:30 AM CDT Treatment Note - Electronically signed by: JAMES BEE, PT January 29, 2020 SUBJECTIVE: She is feeling better. Pain is 3/10, mostly in her neck more than back. She reports low back and neck pain is worse with activity, such as driving, cooking, cleaning. Sitting on a hard chair hurts low back pain. Patient admits that she is lying around most of the day since her back feels worse with activity. She sees referring SCALE MANAGER next and hopes she can be released back to work, especially since she's working from home due to COVID19 precautions. She did very well after last session. She would like to do some massage today with it being higher up on her neck, too, if possible. Child's pose and knee to chest stretches really help her back. Low back is usually between a 3 to a 6 out of 10, and varies. OBJECTIVE General: Patient was able to move at a normal speed for gait and transfers, and without difficulty. TREATMENT: Education/Equipment Provided: reviewed Home Exercise Program Other treatment notes: Refer to PT OP Rehab Therapy Treatment flowsheet for details/minutes. Home program in [facility] Access Code: [email or web address] Soft tissue work to back and neck on prone. Used cocoa better. No restrictions found in the upper traps, rhomboids, lats, low back. Therapist provided Education and Skilled therapy by asking her to be a little more active at home and why bedrest is not indicated. I educated her that we can end the plan of care early if that's indicated if she meets the PT goals early. Educated her not to push through pain on exercises such as the wall stretch and scapular retractions, but stop if they hurt worse. ASSESSMENT: Other Details: Patient is making progress in that she is reporting her pain is 3/10, which is lowerfor her. She is standing more upright in the clinic than at the evaluation. She reports she still has low back pain and pain on stairs but they are better. LE pain when lying on L side at night and when turning head. She needed some cueing on the bridges and posterior pelvic tilts that are on her home program, but she is doing fairly well overall with her home program. Patient was very tender at the inferior border of her L scapula and her L upper trapezius during soft tissue work, so care was taken to not push too hard. She said that she felt pretty good when leaving, reporting after soft tissue work that her back felt better but not was a little irritated (L upper trap especially). Patient will likely be ready to return to work next when she sees Estefany OSEGUERA, especially since would be working from home due to COVID19 anyway. 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 PLAN ad terminal makeup operator goals: Goals to be achieved in [...] st Contact Info) Description 09/13/2025 11:00 AM FISHERIES TECHNICAL OFFICER Office Visit [facility] - Cardiology - [address] [place] [address] Vane Contreras APRN, MIKE [address] [place] [address] documented as of this encounter Visit Diagnoses Not on filedocumented in this encounter Care Teams Trademark Affixer Relationship Specialty Start Date End Date Hung Pereira APRN, ELECTRON BEAM PHOTO MASK MAKER [address] [place] [address] PCP - General Internal Medicine 01/14/20 06/12/22 documented as of this encounter
--- OUTSIDE RECORDS SUMMARY | 2024-10-27 11:05 | XMS_ITS | Encounter Summary ---
Author Organization [facility] [employer] Care Team Providers Care Security Officers And Guards Name Role Phone Hung Pereira APRN, CNP Primary Care Provider + Encounter Details Date Type Department Care Team (Latest Contact Info) Description 01/24/2020 Travel Social History Tobacco Use Types Packs/Day [...] st Contact Info) Description 09/13/2025 11:00 AM SALES AGENT Office Visit [facility] - Cardiology - [place] [address] [place] [address] Vane Contreras APRN, CNP [address] [place] [address] documented as of this encounter Visit Diagnoses Not on filedocumented in this encounter Care Teams Security Officers And Guards Relationship Specialty Start Date End Date Hung Pereira APRN, CNP [address] [place] [address] PCP - General Internal Medicine 01/14/20 06/12/22 documented as of this encounter
--- OUTSIDE RECORDS SUMMARY | 2024-10-27 11:05 | XMS_ITS | Encounter Summary ---
Author Organization [facility] Care Team Providers Care Hammerer Name Role Phone Provider, None Primary Care Provider Unavailabl e Encounter Details Date Type Department Care Team (Latest Contact Info) Description 12/24/2019 Travel Social History Tobacco Use Types Packs/Day [...] st Contact Info) Description 09/13/2025 11:00 AM QUALITY INTERNSHIP Office Visit [facility] - Cardiology [facility] [address] [place] [phone] Vane Contreras APRN, EXEC. CREATIVE DIRECTOR [address] [place] [address] documented as of this encounter Visit Diagnoses Not on filedocumented in this encounter Care Teams Hammerer Relationship Specialty Start Date End Date Provider, Johnathon YOUNG PCP - General 05/05/18 01/13/20 documented as of this encounter
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
--- OUTSIDE RECORDS SUMMARY | 2024-10-27 11:06 | XMS_ITS | Continuity of Care Document ---
Author Organization [facility] Address [address] [place] [address] Phone Care Team Providers Care Stitchdowns Toe Former Name Role Phone Abisai Red MD Unavailable Unavailable Advance Directives Directive Yes / No Effective Date File Name No Information Encounters Encounter Description Practice Location Reason(s) For Visit Diagnoses Date Provider Providers Copied on Encounter [facility], [address], [place], [place], [id number], tel:[phone] [facility] No Information Teofilo Barone. [address] [place], [place], [id number], [place]. tel:[phone] Referring Provider: Tre Auguste, [address] [address] Esqu[address], [address]. tel:[phone] Family History Family Member Type Diagnosis Age At Onset No Information Payers Payer name Insurance type Covered alliance party ID Authoriza tion(s) [employer] CI [id number] Social History Type Description Quantity Date Captured Comments Sex Female Smoking Status No Information Chief Complaint And Reason For Visit No Information Reason For Referral Reason For Referral No Information History Of Present Illness Encounter Date Complaint History Of Prese nt Illness No Information Functional Status Date Functional Assessmen t No Information Instructions Date Instruction Additional Infor mation No Information Assessments Type Assessment Date No Information Patient Care Teams Name Effective Dates (start - stop) Status Members No Information
--- OUTSIDE RECORDS SUMMARY | 2024-10-27 11:06 | XMS_ITS | Continuity of Care Document ---
Author Organization [facility] [place] Address [address] [place] [address] [address] [place] [address] Phone Care Team Providers Care Slope Runner Name Role Phone Merly Nazario PTA Unavailable Unavailable Procedures Procedure Date Doc neg elder mal no plan PT Evaluation Moderate Complexity Therapeutic Activities Neuromuscular Re-Ed Therapeutic Exercise Mechanical Traction Electrical Stimulation Therapeutic Activities Progress Note Therapeutic Activities Neuromuscular Re-Ed Therapeutic Exercise Manual Therapy Hot or Cold Pack Electrical Stimulation Therapeutic Activities Neuromuscular Re-Ed Therapeutic Exercise Hot or Cold Pack Manual Therapy Electrical Stimulation Therapeutic Activities Neuromuscular Re-Ed Therapeutic Exercise Hot or Cold Pack Electrical Stimulation Therapeutic Activities Neuromuscular Re-Ed Therapeutic Exercise Hot or Cold Pack Electrical Stimulation Therapeutic Activities Neuromuscular Re-Ed Therapeutic Exercise Hot or Cold Pack Electrical Stimulation Therapeutic Activities Neuromuscular Re-Ed Therapeutic Exercise Electrical Stimulation Therapeutic Activities Neuromuscular Re-Ed Therapeutic Exercise Hot or Cold Pack Electrical Stimulation Progress Note Therapeutic Activities Neuromuscular Re-Ed Therapeutic Exercise Hot or Cold Pack Electrical Stimulation Therapeutic Activities Neuromuscular Re-Ed Therapeutic Exercise Hot or Cold Pack Electrical Stimulation Therapeutic Activities Neuromuscular Re-Ed Therapeutic Exercise Manual Therapy Hot or Cold Pack Therapeutic Activities Neuromuscular Re-Ed Therapeutic Exercise Manual Therapy Hot or Cold Pack Therapeutic Activities Neuromuscular Re-Ed Therapeutic Exercise Hot or Cold Pack Manual Therapy Therapeutic Activities Neuromuscular Re-Ed Therapeutic Exercise Manual Therapy Hot or Cold Pack Progress Note Therapeutic Activities Neuromuscular Re-Ed Therapeutic Exercise Manual Therapy Hot or Cold Pack Therapeutic Activities Neuromuscular Re-Ed Therapeutic Exercise Manual Therapy Hot or Cold Pack Therapeutic Activities Neuromuscular Re-Ed Therapeutic Exercise Manual Therapy Hot or Cold Pack Therapeutic Activities Neuromuscular Re-Ed Manual Therapy Therapeutic Exercise Hot or Cold Pack Therapeutic Activities Neuromuscular Re-Ed Therapeutic Exercise Manual Therapy Hot or Cold Pack Therapeutic Activities Neuromuscular Re-Ed Therapeutic Exercise Hot or Cold Pack Manual Therapy Therapeutic Activities Neuromuscular Re-Ed Therapeutic Exercise Manual Therapy Hot or Cold Pack Therapeutic Activities Neuromuscular Re-Ed Therapeutic Exercise Manual Therapy Hot or Cold Pack Progress Note Therapeutic Activities Neuromuscular Re-Ed Therapeutic Exercise Manual Therapy Hot or Cold Pack Therapeutic Activities Neuromuscular Re-Ed Therapeutic Exercise Manual Therapy Hot or Cold Pack Therapeutic Activities Neuromuscular Re-Ed Therapeutic Exercise Hot or Cold Pack Manual Therapy Therapeutic Activities Neuromuscular Re-Ed Therapeutic Exercise Manual Therapy Hot or Cold Pack Therapeutic Activities Neuromuscular Re-Ed Therapeutic Exercise Manual Therapy Hot or Cold Pack Therapeutic Activities Neuromuscular Re-Ed Therapeutic Exercise Manual Therapy Hot or Cold Pack Doc neg elder mal no plan PT Evaluation Moderate Complexity Therapeutic Activities Neuromuscular Re-Ed Manual Therapy Hot or Cold Pack Therapeutic Activities Neuromuscular Re-Ed Manual Therapy Therapeutic Activities Neuromuscular Re-Ed Doc neg elder mal no plan PT Evaluation Moderate Complexity Therapeutic Activities Therapeutic Exercise Manual Therapy Therapeutic Activities Therapeutic Exercise Manual Therapy Neuromuscular Re-Ed Neuromuscular Re-Ed Therapeutic Activities Therapeutic Exercise Therapeutic Activities Manual Therapy Therapeutic Exercise Neuromuscular Re-Ed Therapeutic Activities PT Evaluation Moderate Complexity Manual Therapy Therapeutic Exercise THERAPEUTIC EXERCISES MANUAL THERAPY HOT/COLD PACK PT Re-Evaluation THERAPEUTIC EXERCISES MANUAL THERAPY HOT/COLD PACK ELECTRIC STIMULATION UNATT Progress Note THERAPEUTIC EXERCISES MANUAL THERAPY HOT/COLD PACK THERAPEUTIC EXERCISES MANUAL THERAPY FUNC ACTIVITY HOT/COLD PACK THERAPEUTIC EXERCISES MANUAL THERAPY FUNC ACTIVITY HOT/COLD PACK THERAPEUTIC EXERCISES MANUAL THERAPY FUNC ACTIVITY HOT/COLD PACK THERAPEUTIC EXERCISES MANUAL THERAPY ELECTRIC STIMULATION UNATT PT Evaluation Low Complexity THERAPEUTIC EXERCISES MANUAL THERAPY ELECTRIC STIMULATION UNATT Advance Directives Directive Yes / No Effective Date File Name No Information Encounters Encounter Description Practice Location Reason(s) For Visit Diagnoses Date Provider Providers Copied on Encounter [facility] [address] [place] [address], [place], [place], [id number], tel:[phone] [place]ony No Information 4 Aravind Moreland. . Referring Provider: Stepan Manley DO, [address], [place], [address]. tel:[phone] [place] [address], [place], [place], [address], tel:[phone] Yony No Information 4 Mireya Doll. . Referring Provider: Stepan Manley DO, [address], [place], [address]. tel:[phone] [facility] [address] [place] [address] [address], [place], [place], [address], [place] tel:[phone] [place] No Information 4 Mireya Doll. . Referring Provider: Joshua Sandoval, [address] [place] [address] [address], [place], [address]. tel:[phone], [id number], tel:[phone] [place] No Information 4 Mireya Doll. . Referring Provider: Joshua Sandoval, [address] [place] [address] [address], [place], [address]. tel:[phone], [place], [place], [address], tel:[phone] [place] No Information 4 Joey Payne. [address] [facility], [address], [place], [address], [place]. tel: [phone] Referring Provider: Joshua Sandoval, [address] [place] [address] [address], [place], [address]. tel:[phone] [address] [address], [place], [place], [address], tel:[phone] [place] No Information 4 Armida Wu. . Referring Provider: Joshua Sandoval, [address] [place] [address] [address], [place], [address]. tel:[phone], [place], [place], [address], [place] tel:[phone] [place] No Information 4 Joey Payne. [address] [place] [address], [address], [place], [place], [facility], . tel: [phone] Referring Provider: Joshua Sandoval, [address] [place] [address] [address], [place], [address]. tel:[phone] [address] [address], [place], [place], [address], tel:[phone] Y[place] No Information 4 Joey Payne. [address] [place] [address], [address], [place], [place], [facility], . tel: [phone] Referring Provider: Joshua Sandoval, [address] [place] [address] [address], [place], [address]. tel:[phone] [address] [address], [place], [place], [address], [place] tel:[phone] Y[place] No Information 4 Mireya Doll. . Referring Provider: Joshua Sandoval, [address] [place] [address] [address], [place], [address]. tel:[phone] [facility] [address] [place] [address] [address], [place], [place], [address], tel:[phone] [place] No Information 4 Joey Payne. [address] [place] [address], [address], [place], [address], [place]. tel: [phone] Referring Provider: Joshua Sandoval, [address] [place] [address] [address], [place], [address]. tel:[phone] [place] [address], [address] [place], [place] [address], [place], [place], [address], [place] tel:[phone] Yony No Information Turner-1 4-202 4 Hisky Lavon. . Referring Provider: Joshua Sandoval, [address] [place] [address] [address], [place], [address]. tel:[phone] [place] [address] [facility] [facility] [address], [place], [place], [address], [place] tel:[phone] [place] No Information 1 2- 4 Hisky Lavon. . Referring Provider: Joshua Sandoval, [address] [place] [address] [address], [place], [address]. tel:[phone] [facility] [address], [place], [place], [address], [place] tel:[phone] [place] No Information 1 0- 4 Armida Wu. . Referring Provider: Joshua Sandoval, [address] [place] [address] [address], [place], [address]. tel:[phone] [address], [place], [place], [address], [place] tel:[phone] [place] No Information Turner-0 6- 4 Joey Payne. [address] [facility], [address], [place], [address], [place]. tel: [phone] Referring Provider: Joshua Sandoval, [address] [place] [address] [address], [place], [address]. tel:[phone] [facility] [address] [facility], [place], [place], [address], [place] tel:[phone] [place] No Information Turner-0 5-202 4 Hisky Lavon. . Referring Provider: Joshua Sandoval, [address] [place] [address] [address], [place], [address]. tel:[phone] [place] [address] [facility] [address], [place], [place], [address], tel:[phone] [place] No Information 4- 4 Hisky Lavon. . Referring Provider: Joshua Sandoval, [address] [place] [address] [address], [place], [address]. tel:[phone] [facility], [address] [facility] [facility] [address], [place], [place], [address], [place] tel:[phone] [place] No Information 4 Hisky Lavon. . Referring Provider: Joshua Sandoval, [address] [place] [address] [address], [place], [address]. tel:[phone] [address] [address], [place], [place], [address], tel:[phone] [place] No Information 4 Joey Payne. [address] [facility], [address], [place], [place], [facility], . tel:[phone] Referring Provider: Joshua Sandoval, [address] [place] [address] [address], [place], [address]. tel:[phone] [facility] [address] [place] [address], [place], [place], [id number], tel:[phone] [place] No Information 0- 4 Armida Wu. . Referring Provider: Joshua Sandoval, [address] [place] [address] [address], [place], [address]. tel:[phone] [place] [address] [facility] [address], [place], [place], [address], tel:[phone] [place] No Information 0 4 Marissa Palacios. [address] [facility], [address], [place], [facility], . tel:[phone] Referring Provider: Joshua Sandoval, [address] [place] [address] [address], [place], [address]. tel:[phone] [address], [place], [place], [address], tel:[phone] [place] No Information May-0 3- 4 Joey Payne. [address] [place] [address], [address], [place], [place], [facility], [place]. tel:[phone] Referring Provider: Joshua Sandoval, [address] [place] [address] [address], [place], [address]. tel:[phone] [facility] [address] [facility] [facility] [address], [place], [place], [address], tel:[phone] Yony No Information March-0 - 4 Hisky Lavon. . Referring Provider: Joshua Sandoval, [address] [place] [address] [address], [place], [address]. tel:[phone] [facility] [address] [place], [place] [address], [place], [place], [address], [place] tel:[phone] [place] No Information Apr-2 4 Joey Payne. [address] [place] [address], [address], [place], [place], [facility], [place]. tel:[phone] Referring Provider: Joshua Sandoval, [address] [place] [address] [address], [place], [address]. tel:[phone] [facility] [address] [facility] [facility] [address], [place], [place], [address], [place] tel:[phone] [place] No Information Apr-2 - 4 Hisky Lavon. . Referring Provider: Joshua Sandoval, [address] [place] [address] [address], [place], [address]. tel:[phone] [facility] [address], [place], [place], [address], [place] tel:[phone] [place] No Information Apr-2 - 4 Hisky Lavon. . Referring Provider: Joshua Sandoval, [address] [place] [address] [address], [place], [address]. tel:[phone] [facility] [address] [facility] [facility] [address], [place], [place], [address], [place] tel:[phone] [place] No Information 4 Hisnaseem Doll. . Referring Provider: Joshua Sandoval, [address] [place] [address] [address], [place], [address]. tel:[phone] [facility] [address] [facility] [address], [place], [place], [address], [place] tel:[phone] [place] No Information 4 Hisky Lavon. . Referring Provider: Joshua Sandoval, [address] [place] [address] [address], [place], [address]. tel:[phone] [facility] [address] [place] [address], [place], [place], [address], [place] tel:[phone] [place] No Information 4 Joey Payne. [address] [facility], [address], [place], [facility], [place]. tel: [phone] Referring Provider: Joshua Sandoval, [address] [place] [address] [address], [place], [address]. tel:[phone] [facility] [address] [place], [place] [address] [address], [place], [place], [address], [place] tel:[phone] [place] No Information 4 Joey Payne. [address] [facility], [address], [place], [address], [place]. tel: [phone] Referring Provider: Joshua Sandoval, [address] [place] [address] [address], [place], [address]. tel:[phone] [facility] [address] [facility] [facility] [address], [place], [place], [address], [place] tel:[phone] Yony No Information 4 Joey Payne. [address] [facility], [address], [place], [address], [place]. tel: [phone] Referring Provider: Joshua Sandoval, [address], [place], [address]. tel:[phone] [facility], [place], [place], [address], [place] tel:[phone] [place] No Information 4 Garrels Jazmin. . Referring Provider: Joshua Sandoval, [address], [place], [address]. tel:[phone] [facility] [address], [place], [place], [address], [place] tel:[phone] [place] No Information 3 Koroma Lauren. . Referring Provider: Lei Frank [address], [place], [address]. tel:[phone] [facility] [address], [place], [place], [address], [place] tel:[phone] [place] No Information 3 Koroma Lauren. . Referring Provider: Lei Frank [address], [place], [address]. tel:[phone] [facility], [place], [place], [address], [place] tel:[phone] [place] No Information 3 Koroma Lauren. . Referring Provider: Lei Frank [address], [place], [address]. tel:[phone] [facility], [place], [place], [address], [place] tel:[phone] [place] No Information 1 Koroma Lauren. . [facility], [place], [place], [address], [place] tel:[phone] [place] No Information 1 Koroma Lauren. . [facility], [address], [place], [place], [address], tel:[phone] [place] No Information 1 Koroma Lauren. . [facility], [address], [place], [place], [address], [place] tel:[phone] [place] No Information 1 Koroma Lauren. . [facility], [address], [place], [place], [address], [place] tel:[phone] [place] No Information 7 Joey Payne. [address] [place] [address], [address], [place], [facility], . tel: [phone] Referring Provider: Tre Rodriguez, [address] [address] [address], [place], [facility]. tel:[phone] [facility] [address], [place], [place], [address], tel:[phone] [place] No Information 7 Marissa Palacios. [address] [place] [address], [address], [place], [facility], . tel: [phone] Referring Provider: Tre Rodriguez, [address] [facility] [address], [place], [facility]. tel:[phone] [facility] [address] [facility] [facility] [address], [place], [place], [address], tel:[phone] [place] No Information 7 Marissa Palacios. [address] [place] [address], [address], [place], [facility], . tel: [phone] Referring Provider: Tre Rodriguez, [address] [facility] [address], [place], [facility]. tel:[phone] [facility] [facility] [facility] [address], [place], [place], [address], tel:[phone] [place] No Information 7 Marissa Palacios. [address] [facility], [address], [place], [facility], . tel: [phone] Referring Provider: Tre Rodriguez, [address] [facility] [address], [place], [address]. tel:[phone] [facility], [address] [place] [address], [place], [place], [address], tel:[phone] [place] No Information 7 Joey Payne. [address] [place] [address], [address], [place], [place], [facility], . tel: [phone] Referring Provider: Tre Rodriguez, [address] [facility] [address], [place], [address]. tel:[phone] [address] [address], [place], [place], [address], tel:[phone] [place] No Information 7 Joey Payne. [address] [place] [address], [address], [place], [facility], [place]. tel: [phone] Referring Provider: Tre Rodriguez, [address] [facility] [address], [place], [address]. tel:[phone] [facility], [address] [place] [address] [address], [place], [place], [address], tel:[phone] [place] No Information 7 Marissa Palacios. [address] [place] [address], [address], [place], [facility], [place]. tel: [phone] Referring Provider: Tre Rodriguez [address] [facility] [address], [place], [address]. tel:[phone] [facility], [address] [place], [place] [address], [place], [place], [address], tel:[phone] [place] Stiffness of unspecified joint, not elsewhere classifiedDisorder of muscle, unspecifiedUnspeci fied abnormalities of gait and mobilityMyalgiaMus serge weakness (generalized)Lumba go with sciatica, right side 7 Marissa Palacios. [address] [facility], [address], [place], [address], [place]. tel: [phone] Referring Provider: [address], [place], [address]. tel:[phone] Family History Family Member Type Diagnosis Age At Onset No Information Payers Payer name Insurance type Covered constitution party ID Authoriza tion(s) [employer] EPO WC SP WC [id number] Social History Type Description Quantity Date Captured Comments Sex Female Smoking Status No Information Chief Complaint And Reason For Visit No Information Reason For Referral Reason For Referral No Information Plan Of Treatment Date Type Action Status Goal Tobacco Cessation Counseling completed Goal Tobacco cessation counseling completed Referral Ordered: Referrals: Specialist. Evaluate and Treat (related to Adjustment disorder with depressed mood) ordered Referral Ordered: Depression: Depression management program timeframe: 1 Day. (related to Depression) ordered Referral Ordered: Clinical Psychology (related to Depression) ordered Appointment Joselyn Amado BOOKED Appointment Joselyn Amado BOOKED Appointment Joselyn Amado PN RTD 11/08 BOOKED Appointment Joselyn Amado BOOKED History Of Present Illness Encounter Date Complaint History Of Prese nt Illness No Information Functional Status Date Functional Assessmen t No Information Instructions Date Instruction Additional Infor mation No Information Assessments Type Assessment Date No Information Patient Care Teams Name Effective Dates (start - stop) Status Members No Information
--- NOTE | 2024-10-29 11:04 | W.PM.PROC2 ---
Procedure Note - Detailed Date of Procedure 10/29/24 Pre-op Diagnosis urge incont Post-op Diagnosis Same Procedure Performed Implantation of sacral lead 07496 Placement of implantable pulse generator 43440 Complex neurostimulator programming impedance check 64759 Surgeon Rick Gregg MD Anesthesia MAC and Local Indications This is a patient with refractory urge urinary incontinence. They have undergone a successful trial of sacral nerve stimulation. They present today for permanent implantation. They understand the risks of bleeding, infection, decreased efficacy, need for revision and battery changes. They agree to proceed Findings See dictated Description of Procedure They were correctly identified and informed consent was obtained. There brought to the operating room. There placed in the prone position. There given appropriate perioperative antibiotics. A time-out performed. I used fluoroscopy to bhanu out my sacral landmarks in the AP and the lateral orientation. I anesthetized the skin. I entered the S3 foramen. I monitored the needle with fluoroscopy. I got appropriate Adriana and toe response at a low threshold. I made a skin jeanne. I placed a stylet. I placed the lead introducer sheath. I thinned placed and deployed to my lead. I got appropriate responses again at a low threshold. I marked out the site of the pulse generator. I anesthetized the skin and made that incision. I created a subcutaneous pocket to house the pulse generator. I tunneled the lead towards this pocket. Appropriate connections were made between the lead and the battery. It was placed in the pocket. It was programmed and impedances were checked and found to be normal. I irrigated out all wounds. I ensured hemostasis. I closed the subcutaneous tissues with 2 Vicryl. I closed the skin with 4 0 Vicryl. Glue was applied. There then awakened and transferred to the PACU in stable condition. Implants Sacral neurostimulator Estimated Blood Loss 5 Drains No Packing No Pathology None sent Complications No immediate complications Condition Stable Disposition PACU
== END 2024-10-22 13:22 | disposition home or self-care (01) ==
PROVIDERS: PCP Family Medicine; Visit Provider Urology
PROC: (CPT 64581; principal; 2024-10-22 10:00)
DX: N39.41 Urge incontinence (principal); I10 Essential (primary) hypertension; F41.9 Anxiety disorder, unspecified; Z87.891 Personal history of nicotine dependence; Z79.51 Long term (current) use of inhaled steroids
CPT/HCPCS: 64581; 64590; 99199; C1767; C1778; C1787; J0690; J2004; J2250; J2405; J2704; J3010; J7120